=== PATIENT | female | born 1985 | race Caucasian/White ===

== ENCOUNTER → 2017-11-20 15:34 | Outpatient (REF) | payer BC, SELFPAY ==
[2017-11-20 18:45] LABS: Basophils % 0.5 % (0.1-2.0); Eosinophils # 0.2 K/mm3 (0.0-0.4); Eosinophils % 2.3 % (0.1-12.0); Hematocrit 42.5 % (37.0-47.0); Hemoglobin 14.4 g/dL (12.2-16.2); Lymphocytes # 1.7 K/mm3 (0.7-4.5); Lymphocytes % 25.9 K/mm3 (10-50); Mean Corpuscular HGB Conc 33.9 g/dL (31.8-35.4); Mean Corpuscular Hemoglobin 29.9 pg (27.0-31.2); Mean Corpuscular Volume 88.2 fl (81-99); Mean Platelet Volume 7.3 fl (7.4-10.4); Monocytes # 0.5 K/mm3 (0.1-1.0); Monocytes % 7.8 % (1.7-9.3); Neutrophils # 4.1 K/mm3 (1.8-7.8); Neutrophils % 63.6 % (37.0-80.0); Platelet Count 267 K/mm3 (142-424); Red Blood Count 4.82 M/mm3 (4.20-5.40); White Blood Count 6.4 K/mm3 (4.8-10.8)
[2017-11-20 19:19] LABS: Alanine Aminotransferase 25 U/L (12-78); Albumin Level 3.9 gm/dL (3.4-5.0); Albumin/Globulin Ratio 1.1 (1.1-1.8); Alkaline Phosphatase 81 U/L (46-116); Aspartate Amino Transferase 17 U/L (15-37); Bilirubin,Total 0.5 mg/dL (0.2-1.0); Blood Urea Nitrogen 15 mg/dL (7-18); Calcium 9.2 mg/dL (8.5-10.1); Carbon Dioxide 30 mmol/L (21.0-32.0); Chloride 106 mmol/L (98-107); Chol/HDL Ratio 5.8 (1-3.5); Cholesterol 210 mg/dL (140-200); Creatinine,Serum 0.94 mg/dL (0.55-1.02); Estimated Glomerular Filt Rate 69 ml/min (>60); GFR (African American) 83 ML/MIN (>60); Globulin 3.5 gm/dl (1.3-3.2); Glucose 95 mg/dL (74-106); HDL Cholesterol 36 mg/dL (29-89); LDL Cholesterol 140 mg/dL (0-130); Sodium 143 mmol/L (136-145); Thyroid Stimulating Hormone 2.06 uIU/ml (0.358-3.740); Total Protein,Serum 7.4 gm/dL (6.4-8.2); Triglycerides 168 mg/dL (30-200); VLDL Cholesterol 34 mg/dL (0-40)
[2017-11-22 07:16] LABS: Thyroid Peroxidase Antibodies 20 IU/mL (0-34)
[2017-11-22 07:43] LABS: Vitamin D 25 Hydroxy 21.3 ng/mL (30.0-100.0)
== END ==
LOC: LAB 15:34
PROVIDERS: Visit Provider Physician Assistant
DX: J01.00 Acute maxillary sinusitis, unspecified (principal); E66.9 Obesity, unspecified; Z68.35 Body mass index [BMI] 35.0-35.9, adult; Z79.899 Other long term (current) drug therapy
CPT/HCPCS: 80053; 80061; 82652; 84436; 84443; 84481; 85025; 86376

== ENCOUNTER 2018-04-04 19:20 | Observation (INO) ==
[2018-04-04 20:05] LABS: Microscopic, Urine URINE MICROSCOPIC (MICROSCOPIC)
[2018-04-04 20:08] LABS: Appearance,Urine CLEAR (Clear); Bilirubin,Urine Negative (Negative); Blood, Urine TRACE-L (Negative); Color,Urine YELLOW (Yellow); Glucose,Urine (UA) Negative (Negative); Ketones,Urine Negative (Negative); Leukocyte Esterase,Urine Negative (Negative); Protein,Urine Negative (Negative); Specific Gravity, Urine 1.015 (1.005-1.030); Urobilinogen,Urine 0.2 EU/dl (0.2)
[2018-04-04 20:12] LABS: Basophils % 0.4 % (0.1-2.0); Eosinophils # 0.2 K/mm3 (0.0-0.4); Eosinophils % 2.6 % (0.1-12.0); Hematocrit 43.6 % (37.0-47.0); Hemoglobin 14.5 g/dL (12.2-16.2); Lymphocytes # 1.8 K/mm3 (0.7-4.5); Lymphocytes % 25.3 K/mm3 (10-50); Mean Corpuscular HGB Conc 33.3 g/dL (31.8-35.4); Mean Corpuscular Hemoglobin 29.6 pg (27.0-31.2); Mean Platelet Volume 6.9 fl (7.4-10.4); Monocytes # 0.4 K/mm3 (0.1-1.0); Neutrophils # 4.7 K/mm3 (1.8-7.8); Neutrophils % 65.7 % (37.0-80.0); Platelet Count 275 K/mm3 (142-424); Red Cell Distribution Width 12.3 % (11.5-17.5); White Blood Count 7.2 K/mm3 (4.8-10.8)
--- NOTE | 2018-04-04 20:13 | Emergency Department Note ---
ED Disposition Clinical Impression: Headache Qualifiers: Headache type: unspecified Headache chronicity pattern: acute headache Intractability: intractable Qualified Code(s): R51 - Headache Disposition: Admitted as Observation Condition on Discharge: Good Referrals: Marilu García MD [Primary Care Provider] - - Critical Care Critical Care Time: No Attestation: On 04/04/18, the high probability of a clinically significant, sudden or life threatening deterioration of the following system(s) required my full and direct attention, intervention and personal management. The time I documented below is in addition to time spent performing reported procedures but includes the following listed in this critical care notation. Medical Decision Making - Medical Records Medical records reviewed: Yes: I reviewed the patient's medical records. - Ray Inquiry Pt receiving controlled substance: No Vital Signs: 04/04/18 19:30 04/04/18 19:33 Temperature 98.0 F 98.4 F Temperature Source Oral Oral Pulse Rate [Right Radial] 118 H 118 H Respiratory Rate 20 16 Blood Pressure [Right Arm] 148/96 H 148/96 H Blood Pressure Mean [Right Arm] 113 113 02 Sat by Pulse Oximetry 97 98 Oxygen Delivery Method Room Air - Lab Data Lab results reviewed: Yes: I reviewed the patient's lab results. Lab Results 04/04/18 20:00: Urine Color Yellow, Urine Appearance Clear, Urine pH 6.0, Ur Specific [place] 1.015, Urine Protein Negative, Urine Glucose (UA) Negative, Urine Ketones Negative, Urine Blood Trace-l, Urine Nitrate Negative, Urine Bilirubin Negative, Urine Urobilinogen 0.2, Ur Leukocyte Esterase Negative, Urine RBC None, Urine WBC 3-5, Ur Squamous Epith Cells Occasional, Urine Bact eria Trace 04/04/18 20:05: WBC 7.2, RBC 4.90, Hgb 14.5, Hct 43.6, MCV 89.0, MCH 29.6, MCHC 33.3, RDW 12.3, Plt Count 275, MPV 6.9 L, Neut % (Auto) 65.7, Lymph % (Auto) 25.3, [place] % (Auto) 6.0, Eos % (Auto) 2.6, Baso % (Auto) 0.4, Neut # (Auto) 4.7, Lymph # (Auto) 1.8, [place] # (Auto) 0.4, Eos # (Auto) 0.2, Baso # (Auto) 0.0 04/04/18 20:05: Sodium 142, Potassium 3.6, Chloride 106, Carbon Dioxide 27, Anion Gap 12.6, BUN 10, Creatinine 0.83, Estimated Creat Clear 131, Estimated GFR 79, Est GFR ( Amer) 96, Glucose 98, Calcium 9.1 04/04/18 20:05: ESR 13 Result diagrams: 04/04/18 20:05 04/04/18 20:05 Orders (Tests/Meds): ED MEDICATIONS Discontinued Medications Generic Name Dose Route Start Last Admin Trade Name Freq PRN Reason Stop Dose Admin Diphenhydramine HCl 25 mg 04/04/18 19:36 04/04/18 20:03 Benadryl 50mg/1ml Vial IV 04/04/18 19:37 25 mg ONCE ONE Administration Sodium Chloride 1,000 mls @ 999 mls/hr 04/04/18 19:45 04/04/18 20:03 Sod Chlor 0.9% 1000ml Bag IV 04/04/18 20:45 999 mls/hr .Q1H1M KADEN Administration Ketorolac Tromethamine 30 mg 04/04/18 19:36 04/04/18 20:03 Toradol 30mg/Ml Vial IV 04/04/18 19:37 30 mg ONCE ONE Administration Promethazine HCl 12.5 mg 04/04/18 19:36 04/04/18 20:03 Phenergan 25mg/Ml 1ml Vial IV 04/04/18 19:37 12.5 mg ONCE ONE Administration Sodium Chloride 25 ml 04/04/18 19:36 04/04/18 20:03 Sod Chlor 0.9% 25ml Bag IV 04/04/18 19:37 25 ml ONCE ONE Administration ORDERS Category Date Time Status UA [Urinalysis and Microscopic] Stat Lab 04/04/18 20:00 Ordered - Physician Consults Physician Consulted: chester Reason -: Admission Headache HPI - General Chief Complaint: Headache Stated Complaint: GRIMM, vomiting Time Seen by Provider: 04/04/18 20:00 Mode of Arrival: Family Vehicle Source of Information: Patient Limitations: No Limitations Description of Symptoms (Recalled from ER Triage Doc. by RN): headache that began on monday. pt states she was seen at [facility] where she received ct scan, mri, ,and full work up. pt states she is still having headache and nausea. - History of Present Illness HPI Narrative: pt has hx of occ grimm over the yrs and no specific but felt flush and brief diz zyness - pt with onset of occipital grimm on monday with no relief with otc meds and fiorcet - she then had frontal grimm with occ blurred vision and felt weak and no focal changes but different than prev grimm - pt without fever or rash and no trauma - pt was seen on monday as grimm had been steady since monday by pcp and given meds with no relief as she started them on monday - she had ct today which was abn with possible intracerebral edema -- pt with mri later today but no results and reports inc grimm since that time and presented to ed as no relief with op meds - MD Complaint: headache Onset (ago): day(s) Onset description: gradual Location: frontal, occipital, neck Severity: moderate Quality: constant, different than previous headaches Relieving factors: nothing Exacerbating factors: movement of head/neck Treatments prior to arrival: acetaminophen, ibuprofen, prescription analgesic, antiemetic, migraine medication - Related Data Home Medications Medication Instructions Recorded Confirmed Cyclobenzaprine HCl [Flexeril 10mg 10 mg PO Q8HP PRN 04/04/18 04/04/18 tablet] Ondansetron [Zofran 4mg ODT] 4 mg PO Q4HP PRN 04/04/18 04/04/18 Rizatriptan Benzoate [Maxalt] 5 mg PO Q4HP PRN 04/04/18 04/04/18 methylPREDNISolone [Medrol] 4 mg PO DAILY 04/04/18 04/04/18 Allergies Allergy/AdvReac Type Severity Reaction Status Date / Time cefaclor [From CECLOR] Allergy Unknown Verified 04/04/18 19:36 metoclopramide [From REGLAN] Allergy Unknown Verified 04/04/18 19:36 sulfamethoxazole Allergy Unknown Verified 04/04/18 19:36 [From BACTRIM] trimethoprim [From BACTRIM] Allergy Unknown Verified 04/04/18 19:36 [facility] History I have reviewed the patient's past medical history: Yes Medical History: Denies:: Cancer, Diabetes Mellitus Type 1, Diabetes Mellitus Type 2, MRSA Other Surgeries: Yes: Dilation and Curettage, Other Amputation: No Fractures: No - 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 Smoking Status: Current every day smoker Tobacco Type: cigarettes # Packs/Day (cigarettes): 1 Alcohol Intake: never Substance Use Type: denies use - Psychiatric History Expresses thoughts of harming self/others: None Suicide Plan Description: No Plan Family Hx:: No significant family history ROS Obtained: Yes All systems reviewed & no additional complaints - Constitutional Constitutional: Denies fever(s) - Eyes Eyes: Denies change in vision - ENT Ears, Nose, Mouth, and Throat: Denies sore throat - Cardiovascular Cardiovascular: Denies chest pain - Respiratory Respiratory: No cough - Gastrointestinal Gastrointestingal: Denies: abdominal pain - Genitourinary Female Genitourinary: Denies hematuria - Musculoskeletal Musculoskeletal: Denies joint pain - Integumentary/Breasts Skin/Breast: Denies rash - Neurologic Neurologic: Reports as per HPI, Denies abnormal speech, Denies focal weakness, Reports headache(s), Denies seizure-like activity Physical Exam - General General appearance: alert, in no apparent distress - Head Head exam: normocephalic - Eye Eye exam: Present: PERRL, EOMI, other (fundi - ok as seen ) - ENT ENT exam: Present: mucous membranes dry - Neck Neck exam: Present: trachea midline - Respiratory Respiratory exam: Present: normal lung sounds bilaterally - Cardiovascular Cardiovascular exam: Present: regular rate - Abdominal Exam Abdominal exam: Present: soft - Extremities Exam Extremities exam: Present: full ROM - Neurological Exam Neurological exam: Present: alert, oriented X3, CN II-XII intact - Psychiatric Psychiatric exam: Present: normal affect - Skin Skin exam: Absent: rash
[2018-04-04 20:20] LABS: Anion Gap 12.6 mEq/L (5-15); Calcium 9.1 mg/dL (8.5-10.1); Potassium 3.6 mmoL/L (3.5-5.1)
[2018-04-04 20:31] LABS: Bacteria,Urine Trace /lpf; Squamous Epithelial Cell,Urine Occasional #/hpf (0-5)
[2018-04-05 06:39] LABS: Basophils % 0.4 % (0.1-2.0); Eosinophils # 0.2 K/mm3 (0.0-0.4); Eosinophils % 3.2 % (0.1-12.0); Hematocrit 37.7 % (37.0-47.0); Lymphocytes # 1.7 K/mm3 (0.7-4.5); Lymphocytes % 28.7 K/mm3 (10-50); Mean Corpuscular HGB Conc 32.3 g/dL (31.8-35.4); Mean Corpuscular Hemoglobin 29.2 pg (27.0-31.2); Mean Corpuscular Volume 90.3 fl (81-99); Mean Platelet Volume 6.9 fl (7.4-10.4); Monocytes # 0.4 K/mm3 (0.1-1.0); Monocytes % 6.2 % (1.7-9.3); Neutrophils # 3.6 K/mm3 (1.8-7.8); Neutrophils % 61.6 % (37.0-80.0); Platelet Count 233 K/mm3 (142-424); Red Blood Count 4.18 M/mm3 (4.20-5.40); Red Cell Distribution Width 12.4 % (11.5-17.5); White Blood Count 5.8 K/mm3 (4.8-10.8)
[2018-04-05 06:51] LABS: Hemoglobin 12.3 g/dL (12.2-16.2)
[2018-04-05 07:01] LABS: Anion Gap 12.7 mEq/L (5-15); Calcium 8.2 mg/dL (8.5-10.1); Potassium 3.7 mmoL/L (3.5-5.1)
--- NOTE | 2018-04-05 07:46 | Pharmacy Consult Notes ---
[facility] Pharmacy VTE Monitoring - Patient Demographics Admission date: 04/04/18 Report Date: 04/05/18 Time: 07:45 Allergies/Adverse Reactions: Patient Allergies cefaclor [From CECLOR] Allergy (Unknown, Verified 04/04/18 19:36) metoclopramide [From REGLAN] Allergy (Unknown, Verified 04/04/18 19:36) sulfamethoxazole [From BACTRIM] Allergy (Unknown, Verified 04/04/18 19:36) trimethoprim [From BACTRIM] Allergy (Unknown, Verified 04/04/18 19:36) Height: 1.68 m Weight: 97.551 kg Patient Problems: Current Active Problems (Last Updated 11/22/17 @ 09:03 by MATT Zuniga) Headache (Acute) - VTE Risk Labs: VTE Related Lab Results Hgb 12.3 g/dL (12.2-16.2) D 04/05/18 06:10 Hct 37.7 % (37.0-47.0) 04/05/18 06:10 Plt Count 233 K/mm3 (142-424) 04/05/18 06:10 BUN 12 mg/dL (7-18) 04/05/18 06:10 Creatinine 0.71 mg/dL (0.55-1.02) 04/05/18 06:10 Estimated Creat Clear 174 mL/min (0-300) 04/05/18 06:10 Was VTE Risk Assessment Performed: Yes VTE Score: 1 - Prophylaxis VTE Prophylaxis Ordered?: Yes Types of VTE Prophylaxis: TEDS Knee High Location of Applied Device: Bilateral Lower Extremeties - VTE Diagnosis Confirmed Treatment or plan recommended: Continue Current Treatment
--- NOTE | 2018-04-05 08:24 | History & Physical Report ---
*Admission Date: 04/04/18 <Sally Cordova 04/05/18 08:34> *Chief complaint: headache <Sally Cordova 04/05/18 08:34> *History of present illness: is a 32-year-old female who has had headaches off and on over the years but was always able to make them go away with Fioricet or ibuprofen. On Monday, she developed an occipital headache that radiated around to the front of her head. She describes it as a pain and pressure. She tried [id number] medications with no relief. She began getting blurry vision, felt weak, felt dizzy like she was spinning, and felt like she was floating. She was seen in the office of [facility] on 04/02/[address] of the head was ordered. She was also given Maxalt, a steroid Dosepak, Flexeril, and Zofran. She states she took all of this with no relief. Her CT scan showed possible intracerebral edema, therefore an MRI was ordered. She had the MRI yesterday afternoon at [facility]. Her GRIMM continued to worsen and she began having pain all the way down her neck and spine as well as her paraspinal muscles. She presented to the emergency room. She was given Benadryl, Toradol, and Phenergan. She states this did not help. She was then given morphine and she states the morphine eases her headache but does not make it go away. <Sally Cordova 04/05/18 08:34> [facility] History Medical History: Reports:: Anxiety, Depression, Hyperlipidemia, Hypertension Denies:: Cancer, Diabetes Mellitus Type 1, Diabetes Mellitus Type 2, MRSA <Sally Cordova 04/05/18 08:34> Comment: Endometriosis <Sally Cordova 04/05/18 08:34> Other Surgeries: Yes: Cholecystectomy, Dilation and Curettage, Hysterectomy- Partial, Tubal Ligation, Other (Endometrial ablation, Partial hysterectomy) <Sally Cordova 04/05/18 08:34> Amputation: No <Sally Cordova 04/05/18 08:34> Fractures: No <Sally Cordova 04/05/18 08:34> - *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 Educational Level: Completed [employer] School <Sally Cordova 04/05/18 08:34> Smoking Status: Current every day smoker <Sally Cordova 04/05/18 08:34> Tobacco Type: cigarettes <Sally Cordova 04/05/18 08:34> # Packs/Day (cigarettes): 1 <Sally Cordova 04/05/18 08:34> Alcohol Intake: never <Sally Cordova 04/05/18 08:34> Substance Use Type: denies use <Sally Cordova 04/05/18 08:34> Occupational Status: employed <Sally Cordova 04/05/18 08:34> Housing: house <Sally Cordova 04/05/18 08:34> Household Members: spouse, children <Sally Cordova 04/05/18 08:34> - Psychiatric History Expresses thoughts of harming self/others: None <Sally Cordova 04/05/18 08:34> Suicide Plan Description: No Plan <Sally Cordova 04/05/18 08:34> *Family Hx:: Cancer, Heart Attack, Hypertension, Stroke, Thyroid Disorder <Sally Henley 04/05/18 08:34> Comment: MS, Chiari Malformation <Shmuel Cordovaa 04/05/18 08:34> Review of Systems - Constitutional Reports fatigue, Reports headache(s), Reports weakness <Sally Cordova 04/05/18 08:34> - Eyes Reports blurry vision, Reports sensitivity to light, Denies double vision <Sally Cordova 04/05/18 08:34> - ENT Denies nasal congestion, Denies sore throat <Shmuel Cordovaa 04/05/18 08:34> - *Cardiovascular Denies chest pain, Denies irregular heart rhythm <Sally Cordova 04/05/18 08:34> - *Respiratory Denies cough, Denies shortness of breath <Sally Cordova 04/05/18 08:34> - *Gastrointestinal Reports nausea, Reports vomiting, Denies abdominal pain <Sally Cordova 04/05/18 08:34> - *Genitourinary Denies difficulty urinating, Denies painful urination <Sally Cordova 04/05/18 08:34> - *Musculoskeletal Reports back pain, Reports neck pain <MalcolmjazymnSally - 04/05/18 08:34> - *Neurologic Reports dizziness, Reports headache(s), Reports radiating pain, Reports weakness, Denies abnormal speech, Denies localized weakness, Denies seizure-like activity <Shmuel Cordovaa - 04/05/18 08:34> Meds Home Medications Medication Instructions Recorded Confirmed Type Cyclobenzaprine HCl [Flexeril 10mg 10 mg PO Q8HP PRN 04/04/18 04/04/18 History tablet] Ondansetron [Zofran 4mg ODT] 4 mg PO Q4HP PRN 04/04/18 04/04/18 History Rizatriptan Benzoate [Maxalt] 5 mg PO Q4HP PRN 04/04/18 04/04/18 History hydrOXYzine HCl [Hydroxyzine HCl] 12.5 mg PO NEEDED PRN 04/04/18 04/04/18 History methylPREDNISolone [Medrol] 4 mg PO DAILY 04/04/18 04/04/18 History <Narinder Dior - 04/05/18 09:10> Allergies Allergy/AdvReac Type Severity Reaction Status Date / Time cefaclor [From CECLOR] Allergy Unknown Verified 04/04/18 19:36 metoclopramide [From REGLAN] Allergy Unknown Verified 04/04/18 19:36 sulfamethoxazole Allergy Unknown Verified 04/04/18 19:36 [From BACTRIM] trimethoprim [From BACTRIM] Allergy Unknown Verified 04/04/18 19:36 <Narinder Dior - 04/05/18 09:10> Exam Vital signs and Labs for Last 24 Hours: Temp Pulse Resp BP Pulse Ox 97.8 F 87 16 137/85 98 04/05/18 07:29 04/05/18 07:29 04/05/18 07:29 04/05/18 07:29 04/05/18 07:29 Laboratory Results - last 24 hr 04/04/18 20:00: Urine Color Yellow, Urine Appearance Clear, Urine pH 6.0, Ur Specific [place] 1.015, Urine Protein Negative, Urine Glucose (UA) Negative, Urine Ketones Negative, Urine Blood Trace-l, Urine Nitrate Negative, Urine Bilirubin Negative, Urine Urobilinogen 0.2, Ur Leukocyte Esterase Negative, Urine RBC None, Urine WBC 3-5, Ur Squamous Epith Cells Occasional, Urine Bacteria Trace 04/04/18 20:05: WBC 7.2, RBC 4.90, Hgb 14.5, Hct 43.6, MCV 89.0, MCH 29.6, MCHC 33.3, RDW 12.3, Plt Count 275, MPV 6.9 L, Neut % (Auto) 65.7, Lymph % (Auto) 25.3, [place] % (Auto) 6.0, Eos % (Auto) 2.6, Baso % (Auto) 0.4, Neut # (Auto) 4.7, Lymph # (Auto) 1.8, [place] # (Auto) 0.4, Eos # (Auto) 0.2, Baso # (Auto) 0.0 04/04/18 20:05: Sodium 142, Potassium 3.6, Chloride 106, Carbon Dioxide 27, Anion Gap 12.6, BUN 10, Creatinine 0.83, Estimated Creat Clear 131, Estimated GFR 79, Est GFR ( Amer) 96, Glucose 98, Calcium 9.1 04/04/18 20:05: ESR 13 04/05/18 06:10: WBC 5.8, RBC 4.18 L, Hgb 12.3 D, Hct 37.7, MCV 90.3, MCH 29.2, MCHC 32.3, RDW 12.4, Plt Count 233, MPV 6.9 L, Neut % (Auto) 61.6, Lymph % (Auto) 28.7, [place] % (Auto) 6.2, Eos % (Auto) 3.2, Baso % (Auto) 0.4, Neut # (Auto) 3.6, Lymph # (Auto) 1.7, [place] # (Auto) 0.4, Eos # (Auto) 0.2, Baso # (Auto) 0.0 04/05/18 06:10: Sodium 143, Potassium 3.7, Chloride 108 H, Carbon Dioxide 26, Anion Gap 12.7, BUN 12, Creatinine 0.71, Estimated Creat Clear 174, Estimated GFR 95, Est GFR ( Amer) 115, Glucose 88, Calcium 8.2 L <Narinder Dior - 04/05/18 09:10> Temp Pulse Resp BP Pulse Ox 97.8 F 87 16 137/85 98 04/05/18 07:29 04/05/18 07:29 04/05/18 07:29 04/05/18 07:29 04/05/18 07:29 Laboratory Results - last 24 hr 04/04/18 20:00: Urine Color Yellow, Urine Appearance Clear, Urine pH 6.0, Ur Specific [place] 1.015, Urine Protein Negative, Urine Glucose (UA) Negative, Urine Ketones Negative, Urine Blood Trace-l, Urine Nitrate Negative, Urine Bilirubin Negative, Urine Urobilinogen 0.2, Ur Leukocyte Esterase Negative, Urine RBC None, Urine WBC 3-5, Ur Squamous Epith Cells Occasional, Urine Bacteria Trace 04/04/18 20:05: WBC 7.2, RBC 4.90, Hgb 14.5, Hct 43.6, MCV 89.0, MCH 29.6, MCHC 33.3, RDW 12.3, Plt Count 275, MPV 6.9 L, Neut % (Auto) 65.7, Lymph % (Auto) 25.3, [place] % (Auto) 6.0, Eos % (Auto) 2.6, Baso % (Auto) 0.4, Neut # (Auto) 4.7, Lymph # (Auto) 1.8, [place] # (Auto) 0.4, Eos # (Auto) 0.2, Baso # (Auto) 0.0 04/04/18 20:05: Sodium 142, Potassium 3.6, Chloride 106, Carbon Dioxide 27, Anion Gap 12.6, BUN 10, Creatinine 0.83, Estimated Creat Clear 131, Estimated GFR 79, Est GFR ( Amer) 96, Glucose 98, Calcium 9.1 04/04/18 20:05: ESR 13 04/05/18 06:10: WBC 5.8, RBC 4.18 L, Hgb 12.3 D, Hct 37.7, MCV 90.3, MCH 29.2, MCHC 32.3, RDW 12.4, Plt Count 233, MPV 6.9 L, Neut % (Auto) 61.6, Lymph % (Auto) 28.7, [place] % (Auto) 6.2, Eos % (Auto) 3.2, Baso % (Auto) 0.4, Neut # (Auto) 3.6, Lymph # (Auto) 1.7, [place] # (Auto) 0.4, Eos # (Auto) 0.2, Baso # (Auto) 0.0 04/05/18 06:10: Sodium 143, Potassium 3.7, Chloride 108 H, Carbon Dioxide 26, Anion Gap 12.7, BUN 12, Creatinine 0.71, Estimated Creat Clear 174, Estimated GFR 95, Est GFR ( Amer) 115, Glucose 88, Calcium 8.2 L <Sally Cordova - 04/05/18 08:34> I & O for Last 24 hours: Intake & Output 04/02/18 04/03/18 04/04/18 04/05/18 11:59 11:59 11:59 11:59 Intake Total 1244 / 1244 Balance 1244 / 1244 Weight 215 lb 1 oz <Narinder Dior - 04/05/18 09:10> Intake & Output 04/02/18 04/03/18 04/04/18 04/05/18 11:59 11:59 11:59 11:59 Intake Total 1244 / 1244 Balance 1244 / 1244 Weight 215 lb 1 oz <Sally Cordova - 04/05/18 08:34> - Constitutional no acute distress <Sally Cordova 04/05/18 08:34> - *Routine HEENT Exam Head: Present: normocephalic <Sally Cordova 04/05/18 08:34> Eye: Present: EOMI, PERRL <Sally Cordova 04/05/18 08:34> ENT: Present: mucous membranes moist <Sally Cordova 04/05/18 08:34> - *Routine Neck Exam Present: supple. Absent: lymphadenopathy <Sally Cordova - 04/05/18 08:34> Comments: ttp along the entire c-spine and paraspinal muscles, pain throughout ROM <Sally Cordova 04/05/18 08:34> - *Routine Respiratory Exam Present: CTA bilaterally <Sally Cordova 04/05/18 08:34> - *Routine Cardiovascular Exam Present: RRR <Sally Cordova 04/05/18 08:34> - *Routine Abdominal Exam Present: soft, normoactive bowel sounds. Absent: tenderness <Sally Cordova - 04/05/18 08:34> - *Routine Extremities Exam Absent: cyanosis, clubbing, edema <Sally Cordova 04/05/18 08:34> - Routine Back/Spine/Pelvis Exam Back/Spine: Present: paraspinal tenderness, vertebral tenderness (C-spine to L- spine along with paraspinal muscle tenderness) <Sally Cordova 04/05/18 08:34> - *Routine Skin Exam Present: warm. Absent: rash <Sally Cordova 04/05/18 08:34> - *Routine Neurological Exam Present: alert, oriented X3, CN II-XII intact, moving all extremities. Absent: altered mental status <Sally Cordova 04/05/18 08:34> H&P: Result - Impressions CT head - Possible intracerebral edema MRI without contrast - normal <Sally Cordova 04/05/18 08:34> Assessment and Plan (1) Headache Current visit: Yes Status: Acute Qualifiers: Headache type: unspecified Headache chronicity pattern: acute headache Intractability: intractable Qualified Code(s): R51 - Headache Category: Medical Code(s): R51 - Headache (2) Neck pain Current visit: Yes Status: Acute Category: Medical Code(s): M54.2 - Cervicalgia (3) Back pain Current visit: Yes Status: Acute Category: Medical Code(s): M54.9 - Dorsalgia, unspecified <Narinder Dior - 04/05/18 09:10> (1) Headache Current visit: Yes Status: Acute Qualifiers: Headache type: unspecified Headache chronicity pattern: acute headache Intractability: intractable Qualified Code(s): R51 - Headache Category: Medical Code(s): R51 - Headache (2) Neck pain Current visit: Yes Status: Acute Category: Medical Code(s): M54.2 - Cervicalgia (3) Back pain Current visit: Yes Status: Acute Category: Medical Code(s): M54.9 - Dorsalgia, unspecified <Sally Cordova - 04/05/18 08:19> - Assessment and plan all Dx Assessment and Plan for all problems:: Saw patient agree with above note, plan to discuss LP with measurement of opening pressure with radiology as patient could have pseudotumor cerebri. <Narinder Dior - 04/05/18 09:10> Will discuss further care with Dr. Dior. May need to add steroids and muscle relaxants. <Sally Cordova - 04/05/18 08:34>
[2018-04-05 12:47] LABS: Total Protein,CSF 44.2 mg/dL (15-45)
[2018-04-05 14:38] LABS: Appearance,CSF Clear (Clear); Red Blood Cell,CSF 1 cells/uL (0); White Blood Cell,CSF 2 cells/uL (0-5)
[2018-04-05 15:09] LABS: Mononuclear WBCs,CSF 100 %; Polynuclear WBCs,CSF 0 %
--- NOTE | 2018-04-06 08:09 | Progress Note ---
<Sally Cordova - Last Filed: 04/06/18 08:05> Internal Medicine - PN: Subj *Date: 04/06/18 *Time: 08:06 Interval history: Patient states her headache has improved. She just has a dull headache at this point. She states her back pain is still present from her neck all the way down to her tailbone. She is having some pain where the lumbar puncture was performed that radiates down the left side. She states she feels stiff all over in her back. She was able to rest some last night. She ate a small amount of breakfast this morning. Exam Vital signs and Labs for Last 24 Hours: Temp Pulse Resp BP Pulse Ox 98.3 F 82 14 138/74 97 04/06/18 04:03 04/06/18 04:03 04/06/18 04:03 04/06/18 04:03 04/06/18 04:03 Laboratory Results - last 24 hr 04/05/18 12:32: CSF Glucose 51, CSF Total Protein 44.2 04/05/18 : CSF Volume 12, CSF Appearance Clear, CSF WBC 2, CSF RBC 1, CSF Mononuclear WBCs % 100, CSF Polynuclear WBCs % 0 I & O for Last 24 hours: Intake & Output 04/03/18 04/04/18 04/05/18 04/06/18 11:59 11:59 11:59 11:59 Intake Total 1244 / 1244 2435 / 2435 Balance 1244 / 1244 2435 / 2435 Weight 215 lb 1 oz Microbiology Reports for the Last 24 Hours: Microbiology 04/05/18 Unknown Cerebral Spinal Fluid Gram Stain - Final Radiology Reports for the Last 24 Hours: LP - Successful fluoroscopy guided lumbar puncture without complications. Normal opening pressure - Constitutional no acute distress - *Routine Neck Exam Present: supple Comments: Tenderness to palpation along the entire C-spine and paraspinal muscles. Patient does have better range of motion but still has pain throughout range of motion. - *Routine Respiratory Exam Present: CTA bilaterally - *Routine Cardiovascular Exam Present: RRR - *Routine Abdominal Exam Present: soft, normoactive bowel sounds. Absent: tenderness - *Routine Extremities Exam Absent: cyanosis, clubbing, edema - Routine Back/Spine/Pelvis Exam Back/Spine: Present: paraspinal tenderness (bilaterally from the C-spine to the L-spine), vertebral tenderness (From the c-spine to the lower L-spine), muscle spasm, pain with rotation Assessment and Plan (1) Headache Current visit: Yes Status: Acute Qualifiers: Headache type: unspecified Headache chronicity pattern: acute headache Intractability: intractable Qualified Code(s): R51 - Headache Category: Medical Code(s): R51 - Headache (2) Neck pain Current visit: Yes Status: Acute Category: Medical Code(s): M54.2 - Cervicalgia (3) Back pain Current visit: Yes Status: Acute Category: Medical Code(s): M54.9 - Dorsalgia, unspecified - Assessment and plan all Dx Assessment and Plan for all problems:: Continue steroids as they seem to be helping her headache. Will discuss adding some muscle relaxants with Dr. Dior today for the muscle spasm and stiffness in her back. <Narinder Dior - Last Filed: 04/06/18 08:52> Exam Vital signs and Labs for Last 24 Hours: Temp Pulse Resp BP Pulse Ox 97.2 F L 100 H 18 127/77 97 04/06/18 08:00 04/06/18 08:00 04/06/18 08:00 04/06/18 08:00 04/06/18 08:00 Laboratory Results - last 24 hr 04/05/18 12:32: CSF Glucose 51, CSF Total Protein 44.2 04/05/18 : CSF Volume 12, CSF Appearance Clear, CSF WBC 2, CSF RBC 1, CSF Mononuclear WBCs % 100, CSF Polynuclear WBCs % 0 I & O for Last 24 hours: Intake & Output 04/03/18 04/04/18 04/05/18 04/06/18 11:59 11:59 11:59 11:59 Intake Total 1244 / 1244 2555 / 2555 Balance 1244 / 1244 2555 / 2555 Weight 215 lb 1 oz Microbiology Reports for the Last 24 Hours: Microbiology 04/05/18 Unknown Cerebral Spinal Fluid Gram Stain - Final Assessment and Plan (1) Headache Current visit: Yes Status: Acute Qualifiers: Headache type: unspecified Headache chronicity pattern: acute headache Intractability: intractable Qualified Code(s): R51 - Headache Category: Medical Code(s): R51 - Headache (2) Neck pain Current visit: Yes Status: Acute Category: Medical Code(s): M54.2 - Cervicalgia (3) Back pain Current visit: Yes Status: Acute Category: Medical Code(s): M54.9 - Dorsalgia, unspecified - Assessment and plan all Dx Assessment and Plan for all problems:: Saw patient, she is much better this morning, will give one dose of valium now and stop Morphine, plan discharge later today.
--- NOTE | 2018-04-06 15:29 | Discharge Summary ---
General - General Admission date:: 04/04/18 Discharge date: 04/06/18 HPI HPI: Ms. Muro is a 32-year-old female who has had headaches off and on over the years but was always able to make them go away with Fioricet or ibuprofen. On Monday, she developed an occipital headache that radiated around to the front of her head. She describes it as a pain and pressure. She tried [id number] medications with no relief. She began getting blurry vision, felt weak, felt dizzy like she was spinning, and felt like she was floating. She was seen in the office of [facility] on 04/02/[address] of the head was ordered. She was also given Maxalt, a steroid Dosepak, Flexeril, and Zofran. She states she took all of this with no relief. Her CT scan showed possible intracerebral edema, therefore an MRI was ordered. She had the MRI yesterday afternoon at [facility]. Her GRIMM continued to worsen and she began having pain all the way down her neck and spine as well as her paraspinal muscles. She presented to the emergency room. She was given Benadryl, Toradol, and Phenergan. She states this did not help. She was then given morphine and she states the morphine eases her headache but does not make it go away. Hospital Course Hospital Course: The patient's MRI without contrast from [facility] showed nothing acute. A lumbar puncture under fluoroscopy was then ordered and showed a normal opening pressure. The patient was given a large dose of 10mg of dexamethasone and then 4mg every 6 hours thereafter. She was also given flexeril and a dose of valium. Her GRIMM and back pain improved. She was stable to be discharged home and will f/u with neurology on 04/09/18. Objective Vital signs: Temp Pulse Resp BP Pulse Ox 97.2 F L 100 H 16 127/77 99 04/06/18 08:00 04/06/18 08:00 04/06/18 08:00 04/06/18 08:00 04/06/18 08:00 Narrative: - Constitutional no acute distress - *Routine HEENT Exam Head: Present: normocephalic Eye: Present: EOMI, PERRL ENT: Present: mucous membranes moist - *Routine Neck Exam Present: supple. Absent: lymphadenopathy Comments: ttp along the entire c-spine and paraspinal muscles, pain throughout ROM - *Routine Respiratory Exam Present: CTA bilaterally - *Routine Cardiovascular Exam Present: RRR - *Routine Abdominal Exam Present: soft, normoactive bowel sounds. Absent: tenderness - *Routine Extremities Exam Absent: cyanosis, clubbing, edema - Routine Back/Spine/Pelvis Exam Back/Spine: Present: paraspinal tenderness, vertebral tenderness (C-spine to L- spine along with paraspinal muscle tenderness) - *Routine Skin Exam Present: warm. Absent: rash - *Routine Neurological Exam Present: alert, oriented X3, CN II-XII intact, moving all extremities. Absent: altered mental status Results Labs on day of discharge: Preliminary micro results at discharge 04/05/18 Unknown CSF Culture - Preliminary Cerebral Spinal Fluid NO GROWTH AFTER 24 HOURS DS: Diagnosis - Discharge Diagnosis (1) Headache Status: Acute (2) Neck pain Status: Acute (3) Back pain Status: Acute Discharge Plan - Patient Discharge Instructions ACTIVITY: Continue current activity DIET: continue same diet Patient Instructions: DI for Low Back Pain, DI for Headache, DI for Neck Pain - Follow up Plan Follow up with: Kae Dior MD [Staff Physician] - 04/09/18 10:00 am Disposition: Home, Self-Senior Living Medications: Home Medications Medication Instructions Recorded Confirmed Type Cyclobenzaprine HCl [Flexeril 10mg 10 mg PO Q8HP PRN 04/04/18 04/04/18 History tablet] Ondansetron [Zofran 4mg ODT] 4 mg PO Q4HP PRN 04/04/18 04/04/18 History Rizatriptan Benzoate [Maxalt] 5 mg PO Q4HP PRN 04/04/18 04/04/18 History hydrOXYzine HCl [Hydroxyzine HCl] 12.5 mg PO NEEDED PRN 04/04/18 04/04/18 History Prescriptions/Medication Reconciliation: New Dexamethasone [Decadron 4mg tablet] 4 mg PO BID #10 tablet Continue Ondansetron [Zofran 4mg ODT] 4 mg PO Q4HP PRN PRN Reason: Nausea Cyclobenzaprine HCl [Flexeril 10mg tablet] 10 mg PO Q8HP PRN PRN Reason: Muscle Spasm Rizatriptan Benzoate [Maxalt] 5 mg PO Q4HP PRN PRN Reason: Migraine Headache hydrOXYzine HCl [Hydroxyzine HCl] 12.5 mg PO NEEDED PRN PRN Reason: Anxiety Discontinued methylPREDNISolone [Medrol] 4 mg PO DAILY
== END 2018-04-06 12:53 | disposition home or self-care (01) ==
LOC: 2ND 19:20 → ER 19:20 → 2ND 22:00
PROVIDERS: ADMIT Family Medicine; ATTEND Family Medicine

== ENCOUNTER → 2019-10-05 09:06 | Outpatient (CLI) | payer OTHER, SELFPAY ==
--- NOTE | 2019-10-05 09:20 | XR_ITS ---
PROCEDURE: XR CHEST 2V CLINICAL HISTORY: PNEUMONIA OF RIGH TLOWER LOBE DUE TO INFECTIOUS ORGANISM Nonproductive cough for 2 weeks COMPARISON: CTAC CTA-CHEST from 05/27/2016 CXR CHEST(2 VIEWS-NOT PORTABLE) from 05/27/2016 XR CHEST PORTABLE from 09/26/2019 FINDINGS: The cardiomediastinal silhouette and pulmonary vascularity are within normal limits. The lungs are clear without infiltrates, suspicious nodules, or pleural effusions. No acute bony abnormalities. IMPRESSION: No acute findings. Dictated by: Marquis Petersen 10/05/2019 10:37 Electronically signed by Marquis Petersen in [place] 10/05/2019 10:37
== END ==
PROVIDERS: PCP Physician Assistant; Visit Provider Physician Assistant
DX: J18.9 Pneumonia, unspecified organism (principal)
CPT/HCPCS: 71046

== ENCOUNTER 2019-12-18 21:05 | Observation (INO) | payer OTHER, SELFPAY ==
[2019-12-18 21:06] VITALS: BP 127/86; PULSE 66; RESP 16; TEMP 36.9; O2SAT 97; BMI 29.8
--- NOTE | 2019-12-18 21:23 | CT_ITS ---
PROCEDURE: CT ABDOMEN PELVIS W CON CLINICAL INDICATION: RLQ pain Right lower quadrant pain COMPARISON: CTAC CTA-CHEST from 05/27/2016 ABDPELW/O CT ABD PELVIS W/O CONTRAST from 09/14/2016 TECHNIQUE: IV Contrast: 75ML OPTIRAY 350 Oral Contrast none. Axial images obtained with sagittal and coronal reformats. All CT scans at the facility use one or more dose reduction, viz: automated exposure control, ma/kV adjustment per patient size (including targeted exams where dose is matched to indication, i.e. head), or iterative reconstruction technique. FINDINGS: LOWER THORAX: Mild atelectatic change ABDOMEN & PELVIS: There is a stable indeterminate hypodensity in the right hepatic lobe posteriorly at 8 mm probably unchanged from 05/27/2016. Prior cholecystectomy. The spleen, adrenal glands, pancreas have an unremarkable appearance. A 2 mm nonobstructing stone is present in the lower pole of the left kidney. There may be a small cyst in the lower pole of the left kidney medially. No intestinal obstruction or free air. There has been a prior cholecystectomy and hysterectomy The appendix is slightly plump measuring up to 8 mm but is partially air filled only slightly more prominent compared to 09/14/2016 at that time measuring up to 7 mm. No stranding of the periappendiceal fat. No abscess or free air. No intestinal obstruction. There is a small amount of fluid in the pelvis. There is scattered small mesenteric and right lower quadrant lymph nodes.. No acute bony findings. IMPRESSION: 1. Mild prominence of the appendix. This is of questionable clinical significance. No significant stranding of the periappendiceal fat. Early or mild acute appendicitis would be included in the differential diagnosis. Please correlate with clinical parameters. Follow-up exam with IV and oral contrast may provide further evaluation and could check progress 2. Nonobstructing left nephrolithiasis. 3. Stable hypodense lesion of the liver Dictated by: Darrin Gonsales MD 12/19/2019 09:31 Electronically signed by Darrin Gonsales MD in [place] 12/19/2019 09:31
[2019-12-18 21:32] LABS: Microscopic, Urine URINE MICROSCOPIC (MICROSCOPIC)
[2019-12-18 21:34] LABS: Appearance,Urine CLEAR (Clear); Basophils % 0.3 % (0.1-2.0); Bilirubin,Urine Negative (Negative); Blood, Urine TRACE-I (Negative); Color,Urine YELLOW (Yellow); Eosinophils # 0.4 K/mm3 (0.0-0.4); Eosinophils % 3.6 % (0.1-12.0); Glucose,Urine (UA) Negative (Negative); Hematocrit 45.8 % (37.0-47.0); Hemoglobin 15.8 g/dL (12.2-16.2); Ketones,Urine Negative (Negative); Leukocyte Esterase,Urine Negative (Negative); Lymphocytes # 2.4 K/mm3 (0.7-4.5); Lymphocytes % 23.3 % (10-50); Mean Corpuscular HGB Conc 34.6 g/dL (31.8-35.4); Mean Corpuscular Hemoglobin 31.6 pg (27.0-31.2); Mean Corpuscular Volume 91.5 fl (81-99); Mean Platelet Volume 7.3 fl (7.4-10.4); Monocytes # 0.5 K/mm3 (0.1-1.0); Neutrophils % 67.8 % (37.0-80.0); Nitrate,Urine Negative (Negative); Platelet Count 261 K/mm3 (142-424); Protein,Urine Negative (Negative); Red Cell Distribution Width 12.7 % (11.5-17.5); Specific Gravity, Urine 1.025 (1.005-1.030); Urobilinogen,Urine 0.2 EU/dl (0.2); White Blood Count 10.3 K/mm3 (4.8-10.8)
[2019-12-18 21:39] LABS: Bacteria,Urine Trace /lpf; WBC,Urine Occasional #/hpf (0-3)
[2019-12-18 21:43] LABS: Chloride 107 mmol/L (98-107); Potassium 3.9 mmoL/L (3.5-5.1); Sodium 138 mmol/L (136-145)
[2019-12-18 21:45] LABS: Amylase 63 U/L (30-110); Lipase 168 U/L (23-300)
[2019-12-18 21:46] LABS: Alanine Aminotransferase 34 U/L (12-78); Albumin Level 4.4 g/dl (3.5-5.0); Albumin/Globulin Ratio 1.2 (1.1-1.8); Alkaline Phosphatase 90 U/L (38-126); Anion Gap 8.9 mEq/L (5-15); Aspartate Amino Transferase 36 U/L (14-36); Bilirubin,Total 0.6 mg/dl (0.2-1.3); Blood Urea Nitrogen 11 mg/dl (7-17); Calcium 9.1 mg/dl (8.4-10.2); Carbon Dioxide 26 mmol/L (22.0-30.0); Creatinine Clearance Estimated 130 mL/min (50-200); Estimated Glomerular Filt Rate 82 ml/min (>60); GFR (African American) 99 ML/MIN (>60); Globulin 3.6 g/dL (1.3-3.2); Glucose 98 mg/dl (74-100)
[2019-12-18 21:51] LABS: C-Reactive Protein 5.3 mg/L (0-4)
[2019-12-18 21:57] LABS: Erythrocyte Sedimentation Rate 15 mm/hr (0-20)
[2019-12-18 22:06] VITALS: BP 121/80; PULSE 71; RESP 15; O2SAT 98
--- NOTE | 2019-12-18 22:26 | HMH.EDNVD ---
ED Disposition Clinical Impression: Abdominal pain Qualifiers: Abdominal location: right lower quadrant Qualified Code(s): R10.31 - Right lower quadrant pain Disposition: Admitted as Observation Condition on Discharge: Good Referrals: Narinder Dior MD [Primary Care Provider] - - Critical Care Critical Care Time: No Attestation: On 12/18/19, the high probability of a clinically significant, sudden or life threatening deterioration of the following system(s) required my full and direct attention, intervention and personal management. The time I documented below is in addition to time spent performing reported procedures but includes the following listed in this critical care notation. Medical Decision Making - Medical Records Medical records reviewed: Yes: I reviewed the patient's medical records. - Ray Inquiry Pt receiving controlled substance: No Vital Signs: 12/18/19 21:06 12/18/19 22:06 Temperature 98.4 F Temperature Source Oral Pulse Rate [Left Radial] 66 71 Respiratory Rate 16 15 Blood Pressure [Right Arm] 127/86 121/80 Blood Pressure Mean [Right Arm] 99 93 Blood Pressure Source [Right Arm] Automatic Cuff Automatic Cuff Blood Pressure Position [Right Arm] Sitting Sitting 02 Sat by Pulse Oximetry 97 98 Oxygen Delivery Method Room Air Room Air - Lab Data Lab results reviewed: Yes: I reviewed the patient's lab results. Lab Results 12/18/19 21:25: Urine Color Yellow, Urine Appearance Clear, Urine pH 6.0, Ur Specific [place] 1.025, Urine Protein Negative, Urine Glucose (UA) Negative, Urine Ketones Negative, Urine Blood Trace-i, Urine Nitrate Negative, Urine Bilirubin Negative, Urine Urobilinogen 0.2, Ur Leukocyte Esterase Negative, Urine WBC Occasional, Ur Squamous Epith Cells 3-5, Urine Bacteria Trace 12/18/19 21:25: C-Reactive Protein 5.3 H, Amylase 63, Lipase 168 12/18/19 21:25: WBC 10.3, RBC 5.00, Hgb 15.8, Hct 45.8, MCV 91.5, MCH 31.6 H, MCHC 34.6, RDW 12.7, Plt Count 261, MPV 7.3 L, Neut % (Auto) 67.8, Lymph % (Auto) 23.3, [place] % (Auto) 5.0, Eos % (Auto) 3.6, Baso % (Auto) 0.3, Neut # (Auto) 7.0, Lymph # (Auto) 2.4, [place] # (Auto) 0.5, Eos # (Auto) 0.4, Baso # (Auto) 0.0, ESR 15 12/18/19 21:25: Sodium 138, Potassium 3.9, Chloride 107, Carbon Dioxide 26, Anion Gap 8.9, BUN 11, Creatinine 0.80, Estimated Creat Clear 130, Estimated GFR 82, Est GFR ( Amer) 99, Glucose 98, Calcium 9.1, Total Bilirubin 0.6, AST 36, ALT 34, Alkaline Phosphatase 90, Total Protein 8.0, Albumin 4.4, Globulin 3.6 H, Albumin/Globulin Ratio 1.2 Result diagrams: 12/18/19 21:25 12/18/19 21:25 Orders (Tests/Meds): ED MEDICATIONS Generic Name Dose Route Start Last Admin Trade Name Freq PRN Reason Stop Dose Admin Sodium Chloride 1,000 mls @ 999 mls/hr 12/18/19 21:30 12/18/19 21:28 Sod Chlor 0.9% 1000ml Bag IV 12/18/19 22:30 999 mls/hr .Q1H1M KADEN Administration Discontinued Medications Generic Name Dose Route Start Last Admin Trade Name Freq PRN Reason Stop Dose Admin Ioversol 75 ml 12/18/19 22:16 12/18/19 22:17 Rad-Optiray 350 100ml Vial IV 12/18/19 22:17 75 ml ONCE ONE Administration Protocol Ketorolac Tromethamine 30 mg 12/18/19 21:23 12/18/19 21:28 Toradol 30mg/Ml Vial IV 12/18/19 21:24 30 mg ONCE ONE Administration Ondansetron HCl 4 mg 12/18/19 21:23 12/18/19 21:28 Zofran 4mg/2ml Vial IV 12/18/19 21:24 4 mg ONCE ONE Administration Promethazine HCl 12.5 mg 12/18/19 22:10 12/18/19 22:12 Phenergan 25mg/Ml 1ml Vial IV 12/18/19 22:11 12.5 mg ONCE ONE Administration Sodium Chloride 25 ml 12/18/19 22:10 12/18/19 22:12 Sod Chlor 0.9% 25ml Bag IV 12/18/19 22:11 25 ml ONCE ONE Administration Sodium Chloride 10 ml 12/18/19 22:16 12/18/19 22:16 Rad-Saline Flush 10ml Syringe IV 12/18/19 22:17 10 ml ONCE ONE Administration ORDERS Category Date Time Status CT abdomen pelvis w con Stat Cat Scan 12/18/19 21:23 Taken -
[2019-12-18 23:00] VITALS: BP 118/79; PULSE 69; RESP 16; O2SAT 97
--- NOTE | 2019-12-18 23:17 | PC.NURSE ---
report called to Marcia RN
[2019-12-18 23:28] VITALS: BP 127/86; PULSE 67; RESP 16; TEMP 36.8; O2SAT 97
[2019-12-18 23:29] VITALS: BP 132/76; PULSE 70; RESP 16; TEMP 36.7; O2SAT 98; BMI 34.5
--- NOTE | 2019-12-18 23:29 | PC.NURSE ---
patient up to floor via wheelchair.
[2019-12-19 04:00] VITALS: BP 116/74; PULSE 92; RESP 16; TEMP 36.7; O2SAT 97
--- NOTE | 2019-12-19 05:35 | PC.NURSE ---
A&OX4. PT TOLERATING RA WELL THIS SHIFT. PT HAS C/O 9/10 PAIN TO HER R ABD, ALONG WITH NA. TREATED WITH MORPHINE AND ZOFRAN PER MAR. ON REASSESSMENT, PT FOUND TO BE RESTING IN BED. PT HAS HAD NO OTHER COMPLAINTS. TOLERATING NPO DIET WELL. PT INDEPENDENT, AT BEDSIDE. VSS WILL CONTINUE TO MONITOR.
[2019-12-19 06:17] LABS: Chloride 111 mmol/L (98-107)
[2019-12-19 06:18] LABS: Potassium 4.2 mmoL/L (3.5-5.1); Sodium 140 mmol/L (136-145)
[2019-12-19 06:19] LABS: Lymphocytes # 2.2 K/mm3 (0.7-4.5); Monocytes # 0.4 K/mm3 (0.1-1.0)
[2019-12-19 06:20] LABS: Blood Urea Nitrogen 11 mg/dl (7-17); Creatinine Clearance Estimated 151 mL/min (50-200); Estimated Glomerular Filt Rate 82 ml/min (>60); GFR (African American) 99 ML/MIN (>60)
[2019-12-19 06:21] LABS: Anion Gap 7.2 mEq/L (5-15); Calcium 8.2 mg/dl (8.4-10.2); Carbon Dioxide 26 mmol/L (22.0-30.0); Glucose 93 mg/dl (74-100)
[2019-12-19 06:27] LABS: Basophils % 0.3 % (0.1-2.0); Eosinophils # 0.2 K/mm3 (0.0-0.4); Eosinophils % 3.7 % (0.1-12.0); Hematocrit 39.8 % (37.0-47.0); Lymphocytes % 33.2 % (10-50); Mean Corpuscular HGB Conc 35.3 g/dL (31.8-35.4); Mean Corpuscular Hemoglobin 31.5 pg (27.0-31.2); Mean Corpuscular Volume 89.2 fl (81-99); Mean Platelet Volume 7.5 fl (7.4-10.4); Monocytes % 6.8 % (1.7-9.3); Neutrophils # 3.6 K/mm3 (1.8-7.8); Platelet Count 221 K/mm3 (142-424); Red Blood Count 4.46 M/mm3 (4.20-5.40); Red Cell Distribution Width 12.7 % (11.5-17.5); White Blood Count 6.5 K/mm3 (4.8-10.8)
--- NOTE | 2019-12-19 07:05 | HMH.GSHP ---
HPI HPI: This is a 34-year-old female who presented overnight with increasing lower abdominal pain. Evaluation emergency department revealed her to be afebrile with stable normal vital signs. Her white blood cell count was normal. A CT scan did reveal a 7 mm appendix with no definitive periappendiceal fat stranding or other signs consistent with appendicitis. She had a prior CT scan that also revealed a 7 mm appendix. She has continued to have fairly significant pain mostly in the right lower quadrant with some associated nausea. The decision was made to admit overnight for ongoing evaluation/serial abdominal exams. HPI from emergency department evaluation: Nausea/Vomiting/Diarrhea HPI - General Chief complaint: Abdominal Pain Stated complaint: Stomach pain,nausa Time Seen by Provider: 12/18/19 21:15 Mode of Arrival: Ambulatory Source of Information: Patient, Medical Record Limitations: No Limitations Description of Symptoms (Recalled from ER Triage Doc. by RN): pt c/o generalized abd. pain since this morning that has progressed to a stabbing RLQ pain and nasuea. pt rates her pain a 7 on a 0-10 scale at this time. - History of Present Illness HPI Narrative: pt with abd pain with nausea since this am with dec appetite MD complaint: nausea, abdominal pain Onset (ago): hour(s) Associated Abdominal Pain: Yes Location of pain: RLQ Severity: moderate Consistency: constant Associated symptoms: denies other symptoms [facility] History Medical History: Reports:: Anxiety, Depression, Hyperlipidemia, Hypertension Denies:: Cancer, Diabetes Mellitus Type 1, Diabetes Mellitus Type 2, MRSA *Have you ever received a pneumonia vaccine?: No *Have you received a flu vaccine this season?: No Other Medical History: Reports: Arthritis Other Surgeries: Yes: Cholecystectomy, Dilation and Curettage, Hysterectomy-Partial, Tubal Ligation, Other Amputation: No Fractures: No - *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 Educational Level: Completed High School Smoking Status: Current every day smoker Tobacco Type: cigarettes # Packs/Day (cigarettes): 1 #Yrs smoked (if former smoker): 6 Alcohol Intake: never Substance Use Type: denies use *Occupational Status:: employed Housing: house Household Members: spouse, children *Travel in the last 8 weeks: None - Psychiatric History Pschychiatric History:: Reports:: Anxiety, Depression Family Hx:: Cancer, Heart Attack, Hypertension, Stroke, Thyroid Disorder Review of Systems - Constitutional Denies chills, Denies excessive sweating - Eyes Denies loss of vision - ENT Denies change in voice - *Cardiovascular Denies chest pain - *Respiratory Denies cough - *Gastrointestinal Reports abdominal pain, Reports nausea, Denies vomiting blood, Denies black, tarry stools - *Genitourinary Denies difficulty urinating - *Musculoskeletal Denies joint pain - Integumentary/Breasts Denies rash - *Neurologic Denies confusion, Denies headache(s), Denies seizure-like activity - Psychiatric Denies anxiety - Endocrine Denies cold intolerance - Hematologic/Lymphatic Denies easy bleeding - Allergic/Immunologic Denies GI upset with certain foods Meds Home Medications Medication Instructions Recorded Confirmed Type Adalimumab [Humira] 40 mg SQ WEEKLY 09/21/19 12/18/19 History Tizanidine HCl [Tizanidine HCl 2 mg PO TID PRN 09/21/19 12/18/19 History 2mg] Propranolol HCl [Inderal Xl] 80 mg PO BID 12/18/19 12/18/19 History Venlafaxine HCl [Effexor Xr] 75 mg PO DAILY 12/18/19 12/18/19 History Allergies Allergy/AdvReac Type Severity Reaction Status Date / Time cefaclor [From CECLOR] Allergy Unknown Verified 12/18/19 21:25 metoclopramide [From REGLAN] Allergy Unknown Verified 12/18/19 21:25 sulfamethoxazole Allergy Unknown Verified 12/18/19 21:25 [From BACTRIM] trimethoprim [From BACTRIM] Allergy Unknown Verified 12/18/19 21:25 Exam Vital signs and Labs for Last 24 Hours: Temp Pulse Res
--- NOTE | 2019-12-19 07:11 | P.CONPHA_ITS ---
[facility] VTE Monitoring - Patient Demographics Admission date: 12/18/19 Report Date: 12/19/19 Time: 07:11 Allergies/Adverse Reactions: Patient Allergies cefaclor [From CECLOR] Allergy (Unknown, Verified 12/18/19 21:25) metoclopramide [From REGLAN] Allergy (Unknown, Verified 12/18/19 21:25) sulfamethoxazole [From BACTRIM] Allergy (Unknown, Verified 12/18/19 21:25) trimethoprim [From BACTRIM] Allergy (Unknown, Verified 12/18/19 21:25) Height: 1.68 m Weight: 97.522 kg Patient Problems: Current Active Problems (Last Updated 11/22/17 @ 09:03 by MATT Zuniga) Abdominal pain (Acute) Nausea (Acute) - VTE Risk Labs: VTE Related Lab Results Hgb 14.0 g/dL (12.2-16.2) D 12/19/19 06:03 Hct 39.8 % (37.0-47.0) 12/19/19 06:03 Plt Count 221 K/mm3 (142-424) 12/19/19 06:03 BUN 11 mg/dl (7-17) 12/19/19 06:03 Creatinine 0.80 mg/dl (0.52-1.04) 12/19/19 06:03 Estimated Creat Clear 151 mL/min (50-200) 12/19/19 06:03 Clinical Trial Participant: No - Prophylaxis VTE Prophylaxis Ordered?: Yes Types of VTE Prophylaxis: TEDS Knee High
--- NOTE | 2019-12-19 07:15 | HMH.PHAINT ---
HOME MEDICATION RECONCILIATION CONFIRMED USING LIST FROM [facility]
[2019-12-19 07:28] VITALS: BP 124/85; PULSE 87; RESP 19; TEMP 36.7; O2SAT 99
--- NOTE | 2019-12-19 08:42 | CT_ITS ---
PROCEDURE: CT ABDOMEN PELVIS W CON CLINICAL INDICATION: abdominal pain (RLQ) - follow-up from prior scan Continued right lower quadrant, follow-up abnormal CT scan COMPARISON: CT ABDOMEN PELVIS W CON from 12/18/2019 TECHNIQUE: IV Contrast: 75ML OPTIRAY 350 Oral Contrast 20ml Gastroview Axial images obtained with sagittal and coronal reformats. All CT scans at the facility use one or more dose reduction, viz: automated exposure control, ma/kV adjustment per patient size (including targeted exams where dose is matched to indication, i.e. head), or iterative reconstruction technique. FINDINGS: LOWER THORAX: There are atelectatic changes in the lung bases. ABDOMEN & PELVIS: Prior cholecystectomy. Liver, spleen, adrenal glands, pancreas, and kidneys have an unremarkable appearance. No renal or ureteral calculi. No hydronephrosis. Oral contrast was given with good opacification of the colon noted. There is some contrast within the proximal aspect of the appendix. The appendix is slightly prominent upper limits of normal at 7 mm and visibly appears somewhat less prominent compared to the previous study. There is no stranding of the periappendiceal fat. No abscess. The appendix does course posterior to the cecum and proximal ascending colon. No localized fluid collection. There is a small amount of fluid in the pelvis possibly physiologic. There has been a prior hysterectomy. No intestinal obstruction or free air. IMPRESSION: Overall no significant change in the mildly prominent retrocecal appendix. There is minimal prominence of the body of the appendix however, this is not significantly changed and there is no stranding of the periappendiceal fat. This may only indicate a normal variant. Overall, the findings are less concerning for appendicitis than previously. Please correlate with clinical parameters. Dictated by: Darrin Gonsales MD 12/19/2019 13:15 Electronically signed by Darrin Gonsales MD in [place] 12/19/2019 13:15
--- NOTE | 2019-12-19 12:16 | PC.NURSE ---
Pt off floor for CT scan
--- NOTE | 2019-12-19 12:39 | PC.NURSE ---
Pt back from CT scan
[2019-12-19 14:59] VITALS: BP 120/81; PULSE 89; RESP 19; TEMP 36.6; O2SAT 98
[2019-12-19 18:10] VITALS: PULSE 85; PULSE 86; O2SAT 98
[2019-12-19 18:25] LABS: C-Reactive Protein 6.6 mg/L (0-4)
[2019-12-19 19:42] VITALS: BP 146/93; PULSE 87; RESP 16; TEMP 36.6; O2SAT 98
[2019-12-19 20:00] VITALS: O2SAT 98
[2019-12-20 04:00] VITALS: BP 124/70; PULSE 75; RESP 16; TEMP 36.8; O2SAT 97
--- NOTE | 2019-12-20 04:00 | PC.NURSE ---
Pt is A&OX4. pt medicated for nausea once this shift per MAR. Pt was nauseous after taking a shower. Pt ambulating independently to BR.Pt is NPO @ [place] for Dr. Schumacher. Pt resting well this shift. at bedside
[2019-12-20 05:00] VITALS: BMI 36.1
--- NOTE | 2019-12-20 07:06 | HMH.GSPN ---
Subjective Narrative: Feels a little bit better today . Exam Vital signs and Labs for Last 24 Hours: Temp Pulse Resp BP Pulse Ox 98.3 F 75 16 124/70 97 12/20/19 04:00 12/20/19 04:00 12/20/19 04:00 12/20/19 04:00 12/20/19 04:00 Laboratory Results - last 24 hr 12/19/19 18:00: C-Reactive Protein 6.6 H I & O for Last 24 hours: Intake & Output 12/17/19 12/18/19 12/19/19 12/20/19 11:59 11:59 11:59 11:59 Intake Total 605 / 605 2553 / 2553 Balance 605 / 605 2553 / 2553 Weight 215 lb 224 lb 7 oz - Constitutional no acute distress - *Routine Respiratory Exam Absent: respiratory distress - *Routine Cardiovascular Exam Present: RRR - *Routine Abdominal Exam Present: soft Comments: Some tenderness in the lower abdomen (more on right) that is overall improved versus yesterday. Progress Note: A&P (1) Nausea Status: Acute Current Visit: Yes (2) Abdominal pain Status: Acute Assessment and plan: No definitive evidence of appendicitis noted on follow-up CT scan. The patient remains afebrile. Gastroenterology consult pending Current Visit: Yes
[2019-12-20 07:35] LABS: Basophils % 0.3 % (0.1-2.0); Eosinophils # 0.2 K/mm3 (0.0-0.4); Eosinophils % 3.2 % (0.1-12.0); Hematocrit 38.5 % (37.0-47.0); Hemoglobin 13.6 g/dL (12.2-16.2); Lymphocytes # 1.6 K/mm3 (0.7-4.5); Lymphocytes % 25.7 % (10-50); Mean Corpuscular HGB Conc 35.3 g/dL (31.8-35.4); Mean Corpuscular Hemoglobin 31.2 pg (27.0-31.2); Mean Corpuscular Volume 88.4 fl (81-99); Mean Platelet Volume 7.5 fl (7.4-10.4); Monocytes # 0.3 K/mm3 (0.1-1.0); Monocytes % 4.8 % (1.7-9.3); Neutrophils # 4.1 K/mm3 (1.8-7.8); Platelet Count 218 K/mm3 (142-424); Red Blood Count 4.36 M/mm3 (4.20-5.40); Red Cell Distribution Width 12.7 % (11.5-17.5); White Blood Count 6.1 K/mm3 (4.8-10.8)
[2019-12-20 08:00] VITALS: BP 138/84; PULSE 91; RESP 16; TEMP 36.9; O2SAT 95
[2019-12-20 14:02] VITALS: BMI 36.1
--- NOTE | 2019-12-20 15:21 | HMH.PROC ---
[facility] Procedure Note Procedure Note:: Gastroenterology Consultation Date of Service-December 20, 2019 History of Present Illness: Mrs. Muro is a 34-year-old female who presented with right lower quadrant abdominal pain on Monday that radiated into the back. She did come to the emergency department and the appendix was mildly thickened but this was unchanged from previously. She was afebrile and her white blood cell count was normal. A repeat scan 12 hours later was noted to be possibly improved with no evidence of acute appendicitis. The patient has had chronic constipation/obstipation. She did have a laparoscopic pelvic surgery by her renewals representative (Dr. Perea in [place]) 1 month ago with lysis of adhesions. She does state that her bowel function has improved since that time but she continues to have some obstipation/incomplete defecation. She does report bloating and gassiness. She has nausea. She does report some heartburn and throat burning. She reports longer periods of time on the commode and excessive wiping. The patient did have a colonoscopy 4 to 5 years ago (Dr. Inocente Arcos) which was reportedly normal. Past Medical History: 1. Anxiety/depression 2. Hypertension 3. Endometriosis Past Surgical History: 1. Cholecystectomy 2. Laparoscopy with lysis of adhesions 3. Hysterectomy 4. Tubal ligation Medications: 1. Humira 2. Tizanidine 3. Effexor 4. Propranolol ALLERGIES: 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: The patient is with children. She lives in [facility], [place]. She is employed. She reports no alcohol but does smoke 1 pack of cigarettes daily Family History: Noncontributory Review of Systems: See chart Physical Examination: Gen.: The patient is a well-developed well-nourished individual in no acute distress HEENT: Normocephalic/atraumatic extraocular movements are intact anicteric Neck: Supple no lymphadenopathy Chest: Clear to auscultation Cardiovascular: Regular rate and rhythm Abdomen: Normoactive bowel sounds soft, tenderness in the right lower quadrant, mild distention, palpable stool and gas present, no masses, no rebound or guarding no hepatosplenomegaly Extremities: No edema Labs: See chart Radiology: See chart Impression/Plan: 1. Right lower quadrant abdominal pain. The patient does have obstipation by clinical history and by CT scan of the abdomen. She does have a history of constipation predominant IBS but did improve after her recent laparoscopy. We have discussed dietary measures (low residue). I would like for her to begin treatment for visceral sensitivity (buspirone 10 mg p.o. twice daily). I will likely consider adding Zelnorm to her regimen and I will have her follow-up in 3 to 4 weeks as an outpatient (Vicenta MENA). We will also determine whether diagnostic colonoscopy is warranted at that time. I do not feel that this represents acute appendicitis presently and the scan and labs do not support.
[2019-12-20 16:00] VITALS: BP 168/69; PULSE 73; RESP 18; TEMP 36.9; O2SAT 95
--- NOTE | 2019-12-20 16:37 | HMH.DCSUM ---
General - General Admission date:: 12/18/19 Discharge date: 12/20/19 HPI HPI: This is a 34-year-old female who presented overnight with increasing lower abdominal pain. Evaluation emergency department revealed her to be afebrile with stable normal vital signs. Her white blood cell count was normal. A CT scan did reveal a 7 mm appendix with no definitive periappendiceal fat stranding or other signs consistent with appendicitis. She had a prior CT scan that also revealed a 7 mm appendix. She has continued to have fairly significant pain mostly in the right lower quadrant with some associated nausea. The decision was made to admit overnight for ongoing evaluation/serial abdominal exams. HPI from emergency department evaluation: Nausea/Vomiting/Diarrhea HPI - General Chief complaint: Abdominal Pain Stated complaint: Stomach pain,nausa Time Seen by Provider: 12/18/19 21:15 Mode of Arrival: Ambulatory Source of Information: Patient, Medical Record Limitations: No Limitations Description of Symptoms (Recalled from ER Triage Doc. by RN): pt c/o generalized abd. pain since this morning that has progressed to a stabbing RLQ pain and nasuea. pt rates her pain a 7 on a 0-10 scale at this time. - History of Present Illness HPI Narrative: pt with abd pain with nausea since this am with dec appetite MD complaint: nausea, abdominal pain Onset (ago): hour(s) Associated Abdominal Pain: Yes Location of pain: RLQ Severity: moderate Consistency: constant Associated symptoms: denies other symptoms Hospital Course Hospital Course: The patient was admitted to the surgical service. She continued to have some right lower quadrant pain and tenderness to palpation. A second CT scan with IV and p.o. contrast was performed that revealed changes more consistent with normal variant with regard to the appendix. She remained afebrile with stable and normal vital signs. The gastroenterology service was consulted and recommended Bentyl 10 mg twice daily for visceral sensitivity. Please see impression/plan from gastroenterology consultation for the below. GI Consult: Impression/Plan: 1. Right lower quadrant abdominal pain. The patient does have obstipation by clinical history and by CT scan of the abdomen. She does have a history of constipation predominant IBS but did improve after her recent laparoscopy. We have discussed dietary measures (low residue). I would like for her to begin treatment for visceral sensitivity (buspirone 10 mg p.o. twice daily). I will likely consider adding Zelnorm to her regimen and I will have her follow-up in 3 to 4 weeks as an outpatient (Vicenta MENA). We will also determine whether diagnostic colonoscopy is warranted at that time. I do not feel that this represents acute appendicitis presently and the scan and labs do not support. Note: By the afternoon of 12/20/2019 she was feeling much better . She is dated that she was ready to go home . She continued to have some right lower quadrant pain but stated that her overall symptoms were dramatically improved Objective Vital signs: Temp Pulse Resp BP Pulse Ox 98.4 F 73 18 168/69 H 95 12/20/19 16:00 12/20/19 16:00 12/20/19 16:00 12/20/19 16:00 12/20/19 16:00 no acute distress - *Routine HEENT Exam Head: Present: normocephalic, atraumatic Eye: Present: EOMI ENT: Present: mucous membranes moist - *Routine Neck Exam Present: full ROM - Routine Chest/Breast/Axilla Exam Chest wall: Absent: tenderness - *Routine Respiratory Exam Absent: respiratory distress - *Routine Cardiovascular Exam Present: RRR - *Routine Abdominal Exam Present: soft, tenderness - *Routine Extremities Exam Present: full ROM. Absent: cyanosis, clubbing, edema - Routine Back/Spine/Pelvis Exam Back/Spine: Present: full ROM - *Routine Skin Exam Present: intact. Absent: cyanosis, erythema - *Routine Neurological Exam Present: brian
== END 2019-12-20 17:16 | disposition home or self-care (01) ==
LOC: ER 22:48 → 2ND 12-19 00:11
PROVIDERS: Admitting Provider Surgery; Emergency Provider Emergency Medicine; PCP Family Medicine; Visit Provider Surgery
DX: K58.1 Irritable bowel syndrome with constipation (principal); R10.31 Right lower quadrant pain; R11.0 Nausea
CPT/HCPCS: 36415; 74177; 80048; 80053; 81001; 82150; 83690; 85025; 85651; 86140; 94640; 94761; 96365; 96375; 99284; G0378; J2405; Q9967

== ENCOUNTER 2020-03-13 08:21 | Emergency (ER) | payer OTHER, SELFPAY ==
[2020-03-13 08:27] VITALS: BP 149/93; PULSE 87; RESP 15; TEMP 36.9; O2SAT 99; BMI 32.3
--- NOTE | 2020-03-13 08:49 | XR_ITS ---
PROCEDURE: XR CHEST 2V CLINICAL HISTORY: cough COMPARISON: CT CTAC CTA-CHEST from 05/27/2016 CR CXR CHEST(2 VIEWS-NOT PORTABLE) from 05/27/2016 CR XR CHEST PORTABLE from 09/26/2019 CR XR CHEST 2V from 10/05/2019 FINDINGS: The cardiomediastinal silhouette and pulmonary vascularity are within normal limits. The lungs are clear without infiltrates, suspicious nodules, or pleural effusions. No acute bony abnormalities. IMPRESSION: No acute findings. Dictated by: Darrin Gonsales MD 03/13/2020 09:22 Darrin Gonsales MD in [place] 03/13/2020 09:22
--- NOTE | 2020-03-13 08:59 | HMH.EDGENADL ---
ED Disposition Clinical Impression: Acute onset aura migraine Qualifiers: Status migrainosus presence: without status migrainosus Intractability: not intractable Qualified Code(s): G43.109 - Migraine with aura, not intractable, without status migrainosus Disposition: Home, Self-Care Condition on Discharge: Good Instructions: DI for Migraine Referrals: Narinder Dior MD [Primary Care Provider] - - Critical Care Critical Care Time: No Attestation: On 03/13/20, the high probability of a clinically significant, sudden or life threatening deterioration of the following system(s) required my full and direct attention, intervention and personal management. The time I documented below is in addition to time spent performing reported procedures but includes the following listed in this critical care notation. Medical Decision Making - Ray Inquiry Pt receiving controlled substance: No Vital Signs: 03/13/20 08:27 03/13/20 09:17 03/13/20 10:04 Temperature 98.5 F Temperature Source Oral Pulse Rate [Right Radial] 87 79 75 Respiratory Rate 15 Blood Pressure [Right Arm] 149/93 H 146/82 H 136/90 Blood Pressure Mean [Right Arm] 111 103 105 Blood Pressure Source [Right Arm] Automatic Cuff Automatic Cuff Blood Pressure Position [Right Arm] Sitting Sitting 02 Sat by Pulse Oximetry 99 99 100 Oxygen Delivery Method Room Air - Lab Data Lab Results 03/13/20 09:00: WBC 5.0, RBC 4.99, Hgb 15.4, Hct 44.7, MCV 89.5, MCH 30.9, MCHC 34.6, RDW 12.3, Plt Count 241, MPV 7.2 L, Neut % (Auto) 64.6, Lymph % (Auto) 24.5, [place] % (Auto) 6.4, Eos % (Auto) 4.1, Baso % (Auto) 0.4, Neut # (Auto) 3.2, Lymph # (Auto) 1.2, [place] # (Auto) 0.3, Eos # (Auto) 0.2, Baso # (Auto) 0.0 03/13/20 09:00: Sodium 140, Potassium 3.9, Chloride 110 H, Carbon Dioxide 26, Anion Gap 7.9, BUN 9, Creatinine 0.70, Estimated Creat Clear 161, Estimated GFR 95, Est GFR ( Amer) 115, Glucose 99, Calcium 9.2, Troponin I < 0.01 Result diagrams: 03/13/20 09:00 03/13/20 09:00 Orders (Tests/Meds): ED MEDICATIONS Discontinued Medications Generic Name Dose Route Start Last Admin Trade Name Vinh PRN Reason Stop Dose Admin Sodium Chloride 1,000 mls @ 999 mls/hr 03/13/20 09:00 03/13/20 09:07 Sod Chlor 0.9% 1000ml Bag IV 03/13/20 10:00 999 mls/hr .Q1H1M KADEN Administration Ketorolac Tromethamine 30 mg 03/13/20 08:50 03/13/20 09:06 Toradol 30mg/Ml Vial IM 03/13/20 08:51 Not Given ONCE ONE Ketorolac Tromethamine 30 mg 03/13/20 09:05 03/13/20 09:07 Toradol 30mg/Ml Vial IV 03/13/20 09:06 30 mg ONCE ONE Administration ORDERS Category Date Time Status Troponin I Q3H Lab 03/13/20 12:00 Ordered Troponin I Q3H Lab 03/13/20 15:00 Ordered - Radiology Data #1 Image(s): Chest Image Reviewed: Yes I reviewed the patient's radiology results Preliminary Findings: Normal/NAD - Reevaluation(s) Time: 10:05 Reevaluation #1: On reevaluation, patient is feeling better. Repeat neurologic exam is normal. No significant elevation in troponin. Patient is to follow-up with PCP. Continue taking normal regimen for headache. Given strict return precautions. Verbalized understanding. Medical Decision Narrative: This is a 34-year-old female presented to the emergency department with headache. I do believe the patient's symptoms are consistent with a migraine. She states that they have significantly improved. Neurologic exam is normal. Work-up initiated. Patient is low risk for acute coronary syndrome. General Adult HPI - General Chief complaint: PAIN Stated complaint: headache jaw pain Time Seen by Provider: 03/13/20 08:30 Mode of Arrival: Ambulatory Limitations: No Limitations Description of Symptoms (Recalled from ER Triage Doc. by RN): pt states she was sitting outside this morning smoking when she suddenly got a pain that shot through her head and now her jaws feel throbbing. - History of Present Illnes
[2020-03-13 09:17] VITALS: BP 146/82; PULSE 79; O2SAT 99
[2020-03-13 09:18] LABS: Basophils % 0.4 % (0.1-2.0); Eosinophils # 0.2 K/mm3 (0.0-0.4); Eosinophils % 4.1 % (0.1-12.0); Hematocrit 44.7 % (37.0-47.0); Hemoglobin 15.4 g/dL (12.2-16.2); Lymphocytes # 1.2 K/mm3 (0.7-4.5); Lymphocytes % 24.5 % (10-50); Mean Corpuscular HGB Conc 34.6 g/dL (31.8-35.4); Mean Corpuscular Hemoglobin 30.9 pg (27.0-31.2); Mean Corpuscular Volume 89.5 fl (81-99); Mean Platelet Volume 7.2 fl (7.4-10.4); Monocytes # 0.3 K/mm3 (0.1-1.0); Monocytes % 6.4 % (1.7-9.3); Neutrophils # 3.2 K/mm3 (1.8-7.8); Neutrophils % 64.6 % (37.0-80.0); Platelet Count 241 K/mm3 (142-424); Red Blood Count 4.99 M/mm3 (4.20-5.40); Red Cell Distribution Width 12.3 % (11.5-17.5)
[2020-03-13 09:26] LABS: Anion Gap 7.9 mEq/L (5-15); Blood Urea Nitrogen 9 mg/dl (7-17); Calcium 9.2 mg/dl (8.4-10.2); Carbon Dioxide 26 mmol/L (22.0-30.0); Chloride 110 mmol/L (98-107); Creatinine Clearance Estimated 161 mL/min (50-200); Estimated Glomerular Filt Rate 95 ml/min (>60); GFR (African American) 115 ML/MIN (>60); Glucose 99 mg/dl (74-100); Potassium 3.9 mmoL/L (3.5-5.1); Sodium 140 mmol/L (136-145)
[2020-03-13 09:39] LABS: Troponin I < 0.01 ng/ml (0.00-0.034)
[2020-03-13 10:04] VITALS: BP 136/90; PULSE 75; O2SAT 100
[2020-03-13 10:12] VITALS: BP 123/74; PULSE 74; RESP 16; TEMP 36.6; O2SAT 98
== END 2020-03-13 10:13 | disposition home or self-care (01) ==
PROVIDERS: Emergency Provider Emergency Medicine; PCP Family Medicine
DX: G43.109 Migraine with aura, not intractable, without status migrainosus (principal); F41.8 Other specified anxiety disorders; I10 Essential (primary) hypertension; E78.5 Hyperlipidemia, unspecified; F17.210 Nicotine dependence, cigarettes, uncomplicated; Z79.899 Other long term (current) drug therapy; Z90.49 Acquired absence of other specified parts of digestive tract; Z90.79 Acquired absence of other genital organ(s)
CPT/HCPCS: 71046; 80048; 84484; 85025; 96365; 96375; 99283

== ENCOUNTER 2020-07-03 13:28 | Emergency (ER) | payer OTHER, SELFPAY ==
[2020-07-03 14:19] VITALS: BP 130/108; PULSE 99; RESP 14; TEMP 36.8; O2SAT 100; BMI 33.9
--- NOTE | 2020-07-03 14:22 | HMH.EDUTC ---
[facility] [place] Clinical Impression: URI (upper respiratory infection) Qualifiers: URI type: unspecified URI Qualified Code(s): J06.9 - Acute upper respiratory infection, unspecified Disposition: Home, Self-Care Condition on Discharge: Good Instructions: DI for Sinusitis, DI for COVID-19 (Suspected or Confirmed ), Coronavirus Disease 2019, COVID-19: Testing and Tracing, Preventing the Spread of Coronavirus Discharge Instructions Additional Instructions: *Monitor Temp, Over the counter Motrin or Tylenol as directed/as needed Tylenol every 4 hours and Motrin every 6 hours (as long as your family doctor has told you that you can take it) for fever or pain. and straight to ER if unable to lower temp less than 101.0 after medication given *Warm salt water gargles may help to soothe the throat *Throat Lozenges *Warm fluids like tea with honey may help to soothe the throat *Sleep elevated *Humidifier/Vaporizer Follow up IMMEDIATELY for new or worsening symptoms or no Noticeable improvement over the next 48-72 hours. 911 for difficulty breathing or swallowing You were tested for today for COVID19 your test result should be back in the next 24-48 hours, you may call to the [facility] to see if your test results are back in the next 48 hours [phone] [facility] hours are 9am-9pm You was given a handout with instructions for Self Quarantine and Self isolation for while you wait on test results and what to do if they are positive If you are positive the Health Dept will be contacting you also Prescriptions: methylPREDNISolone [Medrol 4mg tab] 4 mg PO DIRECTED #21 tab Transmission Status: Pending to [employer] # Azithromycin [Z-Kang 250mg Tab] 250 mg PO DIRECTED #6 tab Transmission Status: Pending to [employer] # Referrals: Narinder Dior MD [Primary Care Provider] - As needed Forms: Work/School Release Time of Disposition: 14:31 Medical Decision Making - Ray Inquiry Pt receiving controlled substance: No Ray was queried for this patient: No Vital Signs: 07/03/20 14:19 Temperature 98.3 F Temperature Source Oral Pulse Rate [Right] 99 H Respiratory Rate 14 Blood Pressure [Right Arm] 130/108 H Blood Pressure Mean [Right Arm] 115 Blood Pressure Source [Right Arm] Automatic Cuff Blood Pressure Position [Right Arm] Sitting 02 Sat by Pulse Oximetry 100 Oxygen Delivery Method Room Air Orders (Tests/Meds): ORDERS Category Date Time Status Covid-19 Nasal PCR ([facility]) Routine Lab 07/03/20 13:40 Received Medical Decision Narrative: {Paitent state that she has taken zpack and medrol dose pack in the past without reactions or complications [facility] [place] - General Stated complaint: sore throat,cough,SOA Time Seen by Provider: 07/03/20 14:22 Mode of Arrival: Ambulatory Source of Information: Patient Limitations: No Limitations Description of Symptoms (Recalled from Triage Doc. by RN): headache, bodyaches, sore throat, cough for 2 days HEENT Symptoms (Recalled from RN notes): Yes (headache, body aches, sore throat) Resp Symptoms (Recalled from RN notes): No Skin Symptoms (Recalled from RN notes): No MS Symptoms (Recalled from RN notes): No Functional Status (Recalled from RN notes): na - History of Present Illness Provider Complaint: Patient states thats she has been having bodyaches, chills, headache sinus pain and pressure along with cough for several days that has continued to get worse states that she feels like she may have a sinus infection so she come in to get checked Denies known exposure to COVID but wants to get tested - Related Data Home Medications Medication Instructions Recorded Confirmed Adalimumab [Humira] 40 mg SQ WEEKLY 09/21/19 12/18/19 Tizanidine HCl [Tizanidine HCl 4 mg PO HSP PRN 09/21/19 12/19/19 2mg] Propranolol HCl [Inderal Xl] 80 mg PO BID 12/18/19 12/18/19 Venlafaxine HCl [Effexor Xr] 75 mg PO DAILY 12/18/19 12/18/19 Cetirizine HCl 10 mg P
[2020-07-03 14:36] VITALS: BP 130/94; PULSE 99; RESP 16; TEMP 36.8; O2SAT 98
== END 2020-07-03 14:37 | disposition home or self-care (01) ==
PROVIDERS: Emergency Provider Nurse Practitioner; PCP Family Medicine
DX: Z20.822 Contact with and (suspected) exposure to COVID-19 (principal); J06.9 Acute upper respiratory infection, unspecified; I10 Essential (primary) hypertension; E78.5 Hyperlipidemia, unspecified; F41.8 Other specified anxiety disorders; F17.210 Nicotine dependence, cigarettes, uncomplicated; Z79.899 Other long term (current) drug therapy
CPT/HCPCS: 99202; G0463; U0003

== ENCOUNTER → 2020-07-15 14:48 | Outpatient (CLI) | payer OTHER, SELFPAY ==
[2020-07-15 16:07] LABS: Basophils # 0.1 K/mm3 (0-0.2); Basophils % 1.4 % (0.1-2.0); Eosinophils # 0.2 K/mm3 (0.0-0.4); Eosinophils % 3.5 % (0.1-12.0); Hematocrit 43.5 % (37.0-47.0); Hemoglobin 13.9 g/dL (12.2-16.2); Lymphocytes # 1.5 K/mm3 (0.7-4.5); Lymphocytes % 25.7 % (10-50); Mean Corpuscular HGB Conc 31.9 g/dL (31.8-35.4); Mean Corpuscular Hemoglobin 30.5 pg (27.0-31.2); Mean Corpuscular Volume 95.4 fl (81-99); Mean Platelet Volume 7.4 fl (7.4-10.4); Monocytes # 0.4 K/mm3 (0.1-1.0); Monocytes % 5.9 % (1.7-9.3); Neutrophils # 3.8 K/mm3 (1.8-7.8); Neutrophils % 63.6 % (37.0-80.0); Platelet Count 244 K/mm3 (142-424); Red Blood Count 4.56 M/mm3 (4.20-5.40); Red Cell Distribution Width 12.5 % (11.5-17.5)
[2020-07-17 07:53] LABS: Covid-19 Nasal PCR Sendout P&C NEGATIVE
== END ==
PROVIDERS: PCP Family Medicine; Visit Provider Physician Assistant
DX: Z11.52 Encounter for screening for COVID-19 (principal)
CPT/HCPCS: 36415; 85025; U0004

== ENCOUNTER → 2020-07-17 11:14 | Outpatient (CLI) | payer OTHER, SELFPAY ==
[2020-07-17 11:18] LABS: Adenovirus,PCR Not Detected (NotDetected); Bordetella Pertussis Not Detected (NotDetected); Chlamydophila Pneumoniae, PCR Not Detected (NotDetected); Coronavirus 229E Not Detected (NotDetected); Coronavirus NL63 Not Detected (NotDetected); Coronavirus OC43 Not Detected (NotDetected); Coronovirus HKU1,PCR Not Detected (NotDetected); Human Metapneumovirus Not Detected (NotDetected); Influenza A, PCR Not Detected (NotDetected); Influenza AH1, 2009 Not Detected (NotDetected); Influenza AH1, PCR Not Detected (NotDetected); Influenza AH3,PCR Not Detected (NotDetected); Influenza B, PCR Not Detected (NotDetected); Mycoplasma Pneumoniae, PCR Not Detected (NotDetected); Parainfluenza 1, PCR Not Detected (NotDetected); Parainfluenza 2, PCR Not Detected (NotDetected); Parainfluenza 3, PCR Not Detected (NotDetected); Parainfluenza 4, PCR Not Detected (NotDetected); Respiratory Syncytial Virus Not Detected (NotDetected); Rhinovirus/Enterovirus Not Detected (NotDetected)
--- NOTE | 2020-07-17 11:24 | XR_ITS ---
PROCEDURE: XR CHEST 2V CLINICAL HISTORY: BRONCHITIS COMPARISON: CT CTAC CTA-CHEST from 05/27/2016 CR XR CHEST PORTABLE from 09/26/2019 CR XR CHEST 2V from 10/05/2019 CR XR CHEST 2V from 03/13/2020 FINDINGS: The cardiomediastinal silhouette and pulmonary vascularity are within normal limits. The lungs are clear without infiltrates, suspicious nodules, or pleural effusions. No acute bony abnormalities. IMPRESSION: No acute findings. Dictated by: Darrin Gonsales MD 07/17/2020 13:43 Darrin Gonsales MD in [place] 07/17/2020 13:43
== END ==
PROVIDERS: PCP Family Medicine; Visit Provider Physician Assistant
DX: J40 Bronchitis, not specified as acute or chronic (principal)
CPT/HCPCS: 71046; 87486; 87581; 87633; 87798

== ENCOUNTER → 2021-02-11 14:36 | Outpatient (CLI) | payer OTHER, SELFPAY ==
[2021-02-11 15:26] LABS: Basophils # 0.1 K/mm3 (0-0.2); Basophils % 0.9 % (0.1-2.0); Eosinophils # 0.2 K/mm3 (0.0-0.4); Eosinophils % 3.5 % (0.1-12.0); Hematocrit 43.5 % (37.0-47.0); Hemoglobin 14.3 g/dL (12.2-16.2); Lymphocytes # 1.8 K/mm3 (0.7-4.5); Lymphocytes % 28.2 % (10-50); Mean Corpuscular Hemoglobin 29.2 pg (27.0-31.2); Mean Corpuscular Volume 88.7 fl (81-99); Mean Platelet Volume 7.4 fl (7.4-10.4); Monocytes # 0.4 K/mm3 (0.1-1.0); Monocytes % 5.5 % (1.7-9.3); Neutrophils % 61.9 % (37.0-80.0); Platelet Count 236 K/mm3 (142-424); Red Cell Distribution Width 12.5 % (11.5-17.5); White Blood Count 6.4 K/mm3 (4.8-10.8)
== END ==
PROVIDERS: PCP Physician Assistant; Visit Provider Physician Assistant
DX: Z20.822 Contact with and (suspected) exposure to COVID-19 (principal)
CPT/HCPCS: 36415; 85025; U0003

== ENCOUNTER → 2021-05-09 07:06 | Outpatient (CLI) | payer OTHER, SELFPAY ==
[2021-05-09 07:25] LABS: Influenza A, PCR Not Detected (NotDetected); Influenza B, PCR Not Detected (NotDetected)
[2021-05-09 08:16] LABS: Coronavirus 19, PCR Detected (NotDetected)
== END ==
PROVIDERS: PCP Family Medicine; Visit Provider Family Medicine
DX: Z20.822 Contact with and (suspected) exposure to COVID-19 (principal); U07.1 COVID-19
CPT/HCPCS: C9803; U0003; U0005

== ENCOUNTER 2021-05-11 07:41 | Outpatient (CLI) | payer OTHER, SELFPAY ==
[2021-05-11] VITALS (8 sets, daily range): BP systolic 131–142; BP diastolic 80–95; PULSE 83–99; RESP 16–20; TEMP 36.8; O2SAT 98–100
== END 2021-05-11 10:00 | disposition home or self-care (01) ==
LOC: INF 07:41
PROVIDERS: PCP Family Medicine; Visit Provider Family Medicine
DX: U07.1 COVID-19 (principal); Z23 Encounter for immunization
CPT/HCPCS: 96365

== ENCOUNTER → 2021-05-18 15:27 | Outpatient (CLI) | payer OTHER, SELFPAY ==
--- NOTE | 2021-05-18 15:34 | XR_ITS ---
PROCEDURE: XR CHEST PORTABLE CLINICAL HISTORY: COVID OUTPATIENT COMPARISON: No exams were available for comparison FINDINGS: The cardiomediastinal silhouette and pulmonary vascularity are within normal limits. The lungs are clear without infiltrates, suspicious nodules, or pleural effusions. No acute bony abnormalities. IMPRESSION: No acute findings. Dictated by: Darrin Gonsales MD 05/19/2021 07:45 Darrin Gonsales MD in [place] 05/19/2021 07:45
== END ==
PROVIDERS: PCP Physician Assistant; Visit Provider Physician Assistant
DX: U07.1 COVID-19 (principal); R05.9 Cough, unspecified
CPT/HCPCS: 71045

== ENCOUNTER 2021-06-27 09:33 | Emergency (ER) | payer OTHER, SELFPAY ==
[2021-06-27 10:30] VITALS: BP 122/79; PULSE 91; RESP 19; TEMP 36.6; O2SAT 100; BMI 35.2
[2021-06-27 10:40] LABS: UTC Strep Screen (Rapid) Negative (Negative)
[2021-06-27 10:41] LABS: UTC Influenza A Antigen Negative (Negative); UTC Influenza B Antigen Negative (Negative)
--- NOTE | 2021-06-27 10:54 | HMH.EDUTC ---
[facility] [place] Disposition Clinical Impression: Sinusitis Qualifiers: Sinusitis location: maxillary Chronicity: acute Recurrence: non-recurrent Qualified Code(s): J01.00 - Acute maxillary sinusitis, unspecified Disposition: Home, Self-Care Condition on Discharge: Good Instructions: DI for Sinusitis Additional Instructions: Start antibiotic patient to take as ordered for a full length of time even if you feel better. Sinus infections do not get better overnight. It may take 2-3 days to notice much improvement so be sure to use conservative measures as discussed for symptoms. Increase fluids Humidifier/vaporizer as needed Tylenol and ibuprofen as needed for fever or pain. If symptoms do not improve or get worse return or be seen in the ER Follow-up with primary care this week Prescriptions: predniSONE [Prednisone 20mg Tab] 20 mg PO BID #10 tab Prescription Printed Azithromycin [Zithromax 250mg tab] 250 mg PO DIRECTED #6 tab Prescription Printed Referrals: Narinder Dior MD [Primary Care Provider] - Time of Disposition: 10:57 Medical Decision Making - Ray Inquiry Pt receiving controlled substance: No - Lab Data Lab Results 06/27/21 10:25: Influenza Type A Ag Negative, Influenza Type B Ag Negative 06/27/21 10:25: Strep Scn Rapid Clinic Negative Orders (Tests/Meds): ORDERS Category Date Time Status Strep Screen Confirmation Stat Micro 06/27/21 10:25 Received [facility] [place] HPI - General Chief complaint: Urgent Treatment Center Stated complaint: sore throat, cough, h/a, congestion Time Seen by Provider: 06/27/21 10:54 Mode of Arrival: Ambulatory Source of Information: Patient Limitations: No Limitations - History of Present Illness Provider Complaint: 35 yr old female presents for cough, green nasal congestion, sore throat and sinus pressure since monday - Related Data Home Medications Medication Instructions Recorded Confirmed Adalimumab [Humira] 40 mg SQ WEEKLY 09/21/19 12/18/19 Tizanidine HCl [Tizanidine HCl 4 mg PO HSP PRN 09/21/19 12/19/19 2mg] Propranolol HCl [Inderal Xl] 80 mg PO BID 12/18/19 12/18/19 Venlafaxine HCl [Effexor Xr] 75 mg PO DAILY 12/18/19 12/18/19 Cetirizine HCl 10 mg PO DAILY 12/19/19 12/19/19 Etodolac [Etodolac 400mg Tab] 400 mg PO TIDP PRN 12/19/19 12/19/19 Fluticasone Propionate [Flonase 1 spr NS DAILY 12/19/19 12/19/19 50mcg nasal spray 16gm] Previous Rx's Medication Instructions Recorded Buspirone HCl [Buspar 10mg 10 mg PO BID tab 12/20/19 tablet] Buspirone HCl [Buspar 10mg 10 mg PO BID #60 tab 12/20/19 tablet] Azithromycin [Z-Kang 250mg Tab] 250 mg PO DIRECTED #6 tab 07/03/20 methylPREDNISolone [Medrol 4mg 4 mg PO DIRECTED #21 tab 07/03/20 tab] Azithromycin [Zithromax 250mg 250 mg PO DIRECTED #6 tab 06/27/21 tab] predniSONE [Prednisone 20mg 20 mg PO BID #10 tab 06/27/21 Tab] Allergies Allergy/AdvReac Type Severity Reaction Status Date / Time cefaclor [From CECLOR] Allergy Unknown Unknown Verified 03/13/20 09:24 allergy reaction metoclopramide [From REGLAN] Allergy Unknown Unknown Verified 03/13/20 09:24 allergy reaction sulfamethoxazole Allergy Unknown Unknown Verified 03/13/20 09:24 [From BACTRIM] allergy reaction trimethoprim [From BACTRIM] Allergy Unknown Unknown Verified 03/13/20 09:24 allergy reaction [facility] History - Hepatitis A Screen Attestation statement:: This patient has been screened for Hepatitis A risk factors. I have reviewed the patient's past medical history: Yes Medical History: Reports:: Anxiety, Depression, Hyperlipidemia, Hypertension Denies:: Cancer, Diabetes Mellitus Type 1, Diabetes Mellitus Type 2, MRSA Other Medical History: Reports: Arthritis Comment: Endometriosis Other Surgeries: Yes: Cholecystectomy, Dilation and Curettage, Hysterectomy-Partial, Tubal Ligation, Other Amputation: No Fractures: No - Social H
[2021-06-27 11:09] VITALS: BP 122/79; PULSE 91; RESP 19; TEMP 36.6; O2SAT 100
== END 2021-06-27 11:17 | disposition home or self-care (01) ==
PROVIDERS: Emergency Provider Nurse Practitioner Family; PCP Family Medicine
DX: J01.00 Acute maxillary sinusitis, unspecified (principal); F41.8 Other specified anxiety disorders; F17.210 Nicotine dependence, cigarettes, uncomplicated
CPT/HCPCS: 87804; 87880; 99203; G0463

== ENCOUNTER → 2021-07-14 08:15 | Outpatient (CLI) | payer OTHER, SELFPAY ==
[2021-07-14 08:52] LABS: Coronavirus 19, PCR Not Detected (NotDetected); Influenza A, PCR Not Detected (NotDetected); Influenza B, PCR Not Detected (NotDetected)
== END ==
PROVIDERS: PCP Family Medicine; Visit Provider Family Medicine
DX: Z20.822 Contact with and (suspected) exposure to COVID-19 (principal)
CPT/HCPCS: C9803; U0003; U0005

== ENCOUNTER 2021-07-15 09:41 | Emergency (ER) | payer OTHER, SELFPAY ==
[2021-07-15 09:42] VITALS: BP 151/101; PULSE 97; RESP 18; TEMP 36.9; O2SAT 100; BMI 34.7
--- NOTE | 2021-07-15 09:54 | XR_ITS ---
FINAL REPORT CLINICAL HISTORY: left sided chest pain on inspiration former smoker pt just started to vape x 2 months ago hysterectomy FINDINGS: Two views of the chest were obtained. The heart size and pulmonary vascularity are within normal limits. The mediastinum is normal. No acute pulmonary abnormality is identified. There is no pneumothorax. The bony thorax is intact. IMPRESSION: No active cardiopulmonary disease. Reviewed, Interpreted and Dictated by Travon Aguilar III, MD Transcribed by Marika Chan Authenticated by Travon Aguilar III, MD on 07/15/2021 11:21:[address] [facility]
--- NOTE | 2021-07-15 09:54 | HMH.EDGENADL ---
ED Disposition Clinical Impression: Elevated blood pressure reading Dyspnea Qualifiers: Dyspnea type: unspecified Qualified Code(s): R06.00 - Dyspnea, unspecified Disposition: Home, Self-Care Condition on Discharge: Good Instructions: DI for Shortness of Breath, How to Monitor Your Blood Pressure at Home Additional Instructions: follow up pcp return for worse Prescriptions: Albuterol Sulfate [Proventil-HFA 90mcg/puff Inh] 1 - 2 puffs IH Q4HP PRN #1 each PRN Reason: Shortness Of Breath Or Wheezing Transmission Status: Pending to [facility] #[id number] Referrals: Narinder Dior MD [Primary Care Provider] - - Critical Care Critical Care Time: No Attestation: On 07/15/21, the high probability of a clinically significant, sudden or life threatening deterioration of the following system(s) required my full and direct attention, intervention and personal management. The time I documented below is in addition to time spent performing reported procedures but includes the following listed in this critical care notation. Medical Decision Making - Ray Inquiry Pt receiving controlled substance: No Vital Signs: 07/15/21 09:42 Temperature 98.4 F Temperature Source Oral Pulse Rate [Right Radial] 97 H Respiratory Rate 18 Blood Pressure [Right Arm] 151/101 H Blood Pressure Mean [Right Arm] 117 Blood Pressure Source [Right Arm] Automatic Cuff Blood Pressure Position [Right Arm] Sitting 02 Sat by Pulse Oximetry 100 Oxygen Delivery Method Room Air Orders (Tests/Meds): ORDERS Category Date Time Status Chest XR 2 view (NOT portable) [XR chest 2V] Stat Exams 07/15/21 09:54 Taken ECG Request by /Estefani Stat Y 07/15/21 09:54 Ordered - ECG Data Tracing #1 ekg by me nsr, irbbb, no st elev Medical Decision Narrative: pain seems to be localized and reprodicible, no nausea/dizzy/diaphoresis/radiation pt says she recently quit smoking and began vaping agreed to plan to try otc meds for pain and albuterol and f/u pcp General Adult HPI - General Stated complaint: SOA Chest pressure Time Seen by Provider: 07/15/21 09:55 - History of Present Illness HPI narrative: left mid localized cp 1 day assoc with soa, pressure, constant Radiation: non-radiation Severity: mild Quality: constant Relieving factors: none Exacerbating factors: other (palpation) Associated symptoms: chest pain, shortness of breath - Related Data Home Medications Medication Instructions Recorded Confirmed Adalimumab [Humira] 40 mg SQ WEEKLY 09/21/19 12/18/19 Tizanidine HCl [Tizanidine HCl 4 mg PO HSP PRN 09/21/19 12/19/19 2mg] Propranolol HCl [Inderal Xl] 80 mg PO BID 12/18/19 12/18/19 Venlafaxine HCl [Effexor Xr] 75 mg PO DAILY 12/18/19 12/18/19 Cetirizine HCl 10 mg PO DAILY 12/19/19 12/19/19 Etodolac [Etodolac 400mg Tab] 400 mg PO TIDP PRN 12/19/19 12/19/19 Fluticasone Propionate [Flonase 1 spr NS DAILY 12/19/19 12/19/19 50mcg nasal spray 16gm] Previous Rx's Medication Instructions Recorded Buspirone HCl [Buspar 10mg 10 mg PO BID tab 12/20/19 tablet] Buspirone HCl [Buspar 10mg 10 mg PO BID #60 tab 12/20/19 tablet] Azithromycin [Z-Kang 250mg Tab] 250 mg PO DIRECTED #6 tab 07/03/20 methylPREDNISolone [Medrol 4mg 4 mg PO DIRECTED #21 tab 07/03/20 tab] Azithromycin [Zithromax 250mg 250 mg PO DIRECTED #6 tab 06/27/21 tab] predniSONE [Prednisone 20mg 20 mg PO BID #10 tab 06/27/21 Tab] Albuterol Sulfate [Proventil-HFA 1 - 2 puffs IH Q4HP PRN #1 each 07/15/21 90mcg/puff Inh] Allergies Allergy/AdvReac Type Severity Reaction Status Date / Time cefaclor [From CECLOR] Allergy Unknown Unknown Verified 03/13/20 09:24 allergy reaction metoclopramide [From REGLAN] Allergy Unknown Unknown Verified 03/13/20 09:24 allergy reaction sulfamethoxazole Allergy Unknown Unknown Verified 03/13/20 09:24 [From BACTRIM] allergy reaction
--- NOTE | 2021-07-15 09:56 | PC.NURSE ---
Notified Rad of CXR order
[2021-07-15 10:30] VITALS: BP 133/94; PULSE 65; RESP 16; TEMP 36.6; O2SAT 98
--- NOTE | 2021-07-15 10:31 | ECG_ITS ---
APPROVED REPORT Exam: Resting ECG HR:90 bpm ECG Measurements Heart Rate 90 AXES MI 176 P 37 QRSd 102 QRS 18 QT 372 T 20 QTc 455 Conclusion Normal sinus rhythm Incomplete right bundle branch block Borderline ECG Electronically signed by : Giovani Webster MD 07/16/2021 17:34:44
[2021-07-15 10:50] VITALS: BP 133/94; PULSE 87; RESP 15; TEMP 36.6; O2SAT 100
[2021-07-15 10:58] VITALS: BP 128/65; PULSE 68; RESP 16; TEMP 36.6; O2SAT 98
== END 2021-07-15 10:59 | disposition home or self-care (01) ==
PROVIDERS: Emergency Provider Emergency Medicine; PCP Family Medicine
DX: R06.00 Dyspnea, unspecified (principal); I16.1 Hypertensive emergency; F41.8 Other specified anxiety disorders; E78.5 Hyperlipidemia, unspecified
CPT/HCPCS: 71046; 93005; 99282

== ENCOUNTER → 2021-07-16 09:54 | Outpatient (CLI) | payer OTHER, SELFPAY ==
[2021-07-16 15:36] LABS: Adenovirus,PCR Not Detected (NotDetected); Bordetella Pertussis Not Detected (NotDetected); Chlamydophila Pneumoniae, PCR Not Detected (NotDetected); Coronavirus 19, PCR Not Detected (NotDetected); Coronavirus 229E Not Detected (NotDetected); Coronavirus NL63 Not Detected (NotDetected); Coronavirus OC43 Not Detected (NotDetected); Coronovirus HKU1,PCR Not Detected (NotDetected); Human Metapneumovirus Not Detected (NotDetected); Influenza A, PCR Not Detected (NotDetected); Influenza AH1, 2009 Not Detected (NotDetected); Influenza AH1, PCR Not Detected (NotDetected); Influenza AH3,PCR Not Detected (NotDetected); Influenza B, PCR Not Detected (NotDetected); Mycoplasma Pneumoniae, PCR Not Detected (NotDetected); Parainfluenza 1, PCR Not Detected (NotDetected); Parainfluenza 2, PCR Not Detected (NotDetected); Parainfluenza 3, PCR Not Detected (NotDetected); Parainfluenza 4, PCR Not Detected (NotDetected); Respiratory Syncytial Virus Not Detected (NotDetected)
[2021-07-16 15:39] LABS: Basophils # 0.1 K/mm3 (0-0.2); Eosinophils # 0.2 K/mm3 (0.0-0.4); Eosinophils % 3.5 % (0.1-12.0); Hemoglobin 13.4 g/dL (12.2-16.2); Lymphocytes # 1.7 K/mm3 (0.7-4.5); Lymphocytes % 29.7 % (10-50); Mean Corpuscular HGB Conc 32.7 g/dL (31.8-35.4); Mean Corpuscular Hemoglobin 29.9 pg (27.0-31.2); Mean Corpuscular Volume 91.4 fl (81-99); Monocytes # 0.3 K/mm3 (0.1-1.0); Monocytes % 5.9 % (1.7-9.3); Neutrophils # 3.4 K/mm3 (1.8-7.8); Platelet Count 295 K/mm3 (142-424); Red Blood Count 4.48 M/mm3 (4.20-5.40); Red Cell Distribution Width 12.7 % (11.5-17.5); White Blood Count 5.7 K/mm3 (4.8-10.8)
[2021-07-16 18:13] LABS: Rhinovirus/Enterovirus Detected (NotDetected)
== END ==
PROVIDERS: PCP Family Medicine; Visit Provider Physician Assistant
DX: Z20.822 Contact with and (suspected) exposure to COVID-19 (principal); B34.1 Enterovirus infection, unspecified
CPT/HCPCS: 85025; 87581; 87632; 87798; C9803; U0003; U0005

== ENCOUNTER → 2021-08-03 10:14 | Outpatient (CLI) | payer OTHER, SELFPAY ==
[2021-08-03 10:52] LABS: Basophils % 0.8 % (0.1-2.0); Eosinophils # 0.1 K/mm3 (0.0-0.4); Eosinophils % 2.1 % (0.1-12.0); Hematocrit 42.5 % (37.0-47.0); Lymphocytes # 1.8 K/mm3 (0.7-4.5); Mean Corpuscular Hemoglobin 29.9 pg (27.0-31.2); Mean Corpuscular Volume 90.9 fl (81-99); Mean Platelet Volume 7.5 fl (7.4-10.4); Monocytes # 0.3 K/mm3 (0.1-1.0); Neutrophils # 3.4 K/mm3 (1.8-7.8); Neutrophils % 60.1 % (37.0-80.0); Platelet Count 275 K/mm3 (142-424); Red Blood Count 4.68 M/mm3 (4.20-5.40); Red Cell Distribution Width 12.8 % (11.5-17.5); White Blood Count 5.7 K/mm3 (4.8-10.8)
[2021-08-03 11:20] LABS: Adenovirus,PCR Not Detected (NotDetected); Bordetella Pertussis Not Detected (NotDetected); Chlamydophila Pneumoniae, PCR Not Detected (NotDetected); Coronavirus 229E Not Detected (NotDetected); Coronavirus NL63 Not Detected (NotDetected); Coronavirus OC43 Not Detected (NotDetected); Coronovirus HKU1,PCR Not Detected (NotDetected); Human Metapneumovirus Not Detected (NotDetected); Influenza A, PCR Not Detected (NotDetected); Influenza AH1, 2009 Not Detected (NotDetected); Influenza AH1, PCR Not Detected (NotDetected); Influenza AH3,PCR Not Detected (NotDetected); Influenza B, PCR Not Detected (NotDetected); Mycoplasma Pneumoniae, PCR Not Detected (NotDetected); Parainfluenza 1, PCR Not Detected (NotDetected); Parainfluenza 2, PCR Not Detected (NotDetected); Parainfluenza 3, PCR Not Detected (NotDetected); Parainfluenza 4, PCR Not Detected (NotDetected); Respiratory Syncytial Virus Not Detected (NotDetected); Rhinovirus/Enterovirus Not Detected (NotDetected)
== END ==
PROVIDERS: PCP Family Medicine; Visit Provider Physician Assistant
DX: Z20.822 Contact with and (suspected) exposure to COVID-19 (principal)
CPT/HCPCS: 36415; 85025; 87486; 87581; 87632; 87798; C9803; U0003; U0005

== ENCOUNTER → 2021-11-06 09:03 | Outpatient (CLI) | payer OTHER, SELFPAY ==
[2021-11-06 09:50] LABS: Adenovirus,PCR Not Detected (NotDetected); Bordetella Pertussis Not Detected (NotDetected); Chlamydophila Pneumoniae, PCR Not Detected (NotDetected); Coronavirus 19, PCR Not Detected (NotDetected); Coronavirus NL63 Not Detected (NotDetected); Coronavirus OC43 Not Detected (NotDetected); Coronovirus HKU1,PCR Not Detected (NotDetected); Human Metapneumovirus Not Detected (NotDetected); Influenza A, PCR Not Detected (NotDetected); Influenza AH1, 2009 Not Detected (NotDetected); Influenza AH1, PCR Not Detected (NotDetected); Influenza AH3,PCR Not Detected (NotDetected); Influenza B, PCR Not Detected (NotDetected); Mycoplasma Pneumoniae, PCR Not Detected (NotDetected); Parainfluenza 1, PCR Not Detected (NotDetected); Parainfluenza 2, PCR Not Detected (NotDetected); Parainfluenza 3, PCR Not Detected (NotDetected); Parainfluenza 4, PCR Not Detected (NotDetected); Respiratory Syncytial Virus Not Detected (NotDetected); Rhinovirus/Enterovirus Not Detected (NotDetected)
[2021-11-06 09:58] LABS: Basophils # 0.1 K/mm3 (0-0.2); Basophils % 1.7 % (0.1-2.0); Eosinophils # 0.1 K/mm3 (0.0-0.4); Eosinophils % 2.7 % (0.1-12.0); Hematocrit 43.4 % (37.0-47.0); Hemoglobin 14.2 g/dL (12.2-16.2); Lymphocytes # 1.1 K/mm3 (0.7-4.5); Lymphocytes % 21.7 % (10-50); Mean Corpuscular HGB Conc 32.8 g/dL (31.8-35.4); Mean Corpuscular Hemoglobin 29.6 pg (27.0-31.2); Mean Corpuscular Volume 90.3 fl (81-99); Mean Platelet Volume 7.5 fl (7.4-10.4); Monocytes # 0.4 K/mm3 (0.1-1.0); Monocytes % 7.7 % (1.7-9.3); Neutrophils # 3.4 K/mm3 (1.8-7.8); Neutrophils % 66.2 % (37.0-80.0); Platelet Count 263 K/mm3 (142-424); Red Blood Count 4.81 M/mm3 (4.20-5.40); Red Cell Distribution Width 12.6 % (11.5-17.5); White Blood Count 5.2 K/mm3 (4.8-10.8)
[2021-11-06 11:51] LABS: Coronavirus 229E Detected (NotDetected)
== END ==
PROVIDERS: PCP Family Medicine; Visit Provider Family Medicine
DX: U07.1 COVID-19 (principal)
CPT/HCPCS: 36415; 85025; 87581; 87632; 87798; C9803; U0003; U0005

== ENCOUNTER → 2022-02-09 10:35 | Outpatient (CLI) | payer OTHER, SELFPAY ==
--- NOTE | 2022-02-09 10:42 | US_ITS ---
FINAL REPORT CLINICAL HISTORY: THYROMEGALY FINDINGS: THYROID ULTRASOUND Sonographic images of the thyroid was obtained. The right lobe of the thyroid measures 4.3 x 1.8 x 1.7 cm. The left lobe of the thyroid measures 4.4 x 1.8 x 1.6 cm. The isthmus measures 4 mm. The thyroid is mildly enlarged. IMPRESSION: Mildly enlarged thyroid which may represent thyroiditis or goiter. Reviewed, Interpreted and Dictated by Travon Aguilar III, MD Transcribed by Marika Chan Authenticated and [facility]
== END ==
PROVIDERS: PCP Family Medicine; Visit Provider Family Medicine
DX: E04.9 Nontoxic goiter, unspecified (principal)
CPT/HCPCS: 76536

== ENCOUNTER 2022-02-22 16:07 | Emergency (ER) | payer OTHER, SELFPAY ==
--- NOTE | 2022-02-22 16:54 | HMH.EDUTC ---
[facility] [place] Clinical Impression: COVID-19 Disposition: Home, Self-Care Condition on Discharge: Good Instructions: Preventing the Spread of Coronavirus Discharge Instructions, DI for COVID-19 (Suspected or Confirmed ) Additional Instructions: Drink plenty of fluids. Take tylenol or ibuprofen for pain or fever. Take the medications as directed. Follow up with your regular doctor. GO TO THE ER FOR ANY WORSENING SYMPTOMS The cough medication (promethazine dm) will make you drowsy, so don't drive or operate heavy machinery after taking it. Prescriptions: Promethazine/Dextromethorphan [Promethazine-Dm Syrup] 5 ml PO Q6HP PRN #240 ml PRN Reason: Cough Transmission Status: Pending to [facility] # methylPREDNISolone [Medrol] 4 mg PO DIRECTED 6 Days #21 packet Transmission Status: Pending to [facility] # Nirmatrelvir/Ritonavir [Paxlovid 2X150 mg-100 mg (Eua)] 1 packet PO DIRECTED 5 Days #1 packet Transmission Status: Pending to [facility] # Referrals: Narinder Dior MD [Primary Care Provider] - Time of Disposition: 17:14 Medical Decision Making - Medical Records Medical records reviewed: No: I reviewed the patient's medical records. - Ray Inquiry Pt receiving controlled substance: No [facility] [place] - General Stated complaint: covid+ Pain in ribs and back Time Seen by Provider: 02/22/22 16:54 - History of Present Illness Provider Complaint: She started feeling bad 2 days ago. Both her daughters tested positive for covid-19 then. So, yesterday she tested positive on a covid-19 home test. She is here today because she is having bilateral thoracic back pain when she breathes deep or coughs. She denies any shortness of breath. She denies nausea/vomiting/diarrhea. - Related Data Home Medications Medication Instructions Recorded Confirmed RX: Adalimumab [Humira] 40 mg SQ WEEKLY 09/21/19 12/18/19 RX: Tizanidine HCl [Tizanidine HCl 4 mg PO HSP PRN 09/21/19 12/19/19 2mg] RX: Propranolol HCl [Inderal Xl] 80 mg PO BID 12/18/19 12/18/19 RX: Venlafaxine HCl [Effexor Xr] 75 mg PO DAILY 12/18/19 12/18/19 RX: Cetirizine HCl 10 mg PO DAILY 12/19/19 12/19/19 RX: Etodolac [Etodolac 400mg Tab] 400 mg PO TIDP PRN 12/19/19 12/19/19 RX: Fluticasone Propionate 1 spr NS DAILY 12/19/19 12/19/19 [Flonase 50mcg nasal spray 16gm] Previous Rx's Medication Instructions Recorded Buspirone HCl [Buspar 10mg 10 mg PO BID #60 tab 12/20/19 tablet] RX: Buspirone HCl [Buspar 10mg 10 mg PO BID tab 12/20/19 tablet] RX: Azithromycin [Z-Kang 250mg 250 mg PO DIRECTED #6 tab 07/03/20 Tab] methylPREDNISolone [Medrol 4mg 4 mg PO DIRECTED #21 tab 07/03/20 tab] Azithromycin [Zithromax 250mg 250 mg PO DIRECTED #6 tab 06/27/21 tab] predniSONE [Prednisone 20mg 20 mg PO BID #10 tab 06/27/21 Tab] RX: Albuterol Sulfate 1 - 2 puffs IH Q4HP PRN #1 each 07/15/21 [Proventil-HFA 90mcg/puff Inh] Nirmatrelvir/Ritonavir [Paxlovid 1 packet PO DIRECTED 5 Days #1 02/22/22 2X150 mg-100 mg (Eua)] packet Promethazine/Dextromethorphan 5 ml PO Q6HP PRN #240 ml 02/22/22 [Promethazine-Dm Syrup] methylPREDNISolone [Medrol] 4 mg PO DIRECTED 6 Days #21 02/22/22 packet Allergies Allergy/AdvReac Type Severity Reaction Status Date / Time cefaclor [From CECLOR] Allergy Unknown Unknown Verified 03/13/20 09:24 allergy reaction metoclopramide [From REGLAN] Allergy Unknown Unknown Verified 03/13/20 09:24 allergy reaction sulfamethoxazole Allergy Unknown Unknown Verified 03/13/20 09:24 [From BACTRIM] allergy reaction trimethoprim [From BACTRIM] Allergy Unknown Unknown Verified 03/13/20 09:24 allergy reaction [facility] History - Hepatitis A Screen Attestation statement:: This patient has been screened for Hepatitis A risk factors. I have reviewed the patient's past medical history: Yes M
[2022-02-22 17:20] VITALS: BP 116/83; PULSE 116; RESP 18; TEMP 37.1; O2SAT 96; BMI 34.5
[2022-02-22 17:33] VITALS: BP 116/83; PULSE 116; RESP 18; TEMP 36.7
== END 2022-02-22 17:33 | disposition home or self-care (01) ==
PROVIDERS: Emergency Provider Nurse Practitioner Family; PCP Family Medicine
DX: U07.1 COVID-19 (principal)
CPT/HCPCS: 99212; G0463

== ENCOUNTER → 2022-04-01 14:04 | Outpatient (CLI) | payer OTHER, SELFPAY ==
--- NOTE | 2022-04-01 14:07 | MM_ITS ---
PROCEDURE INFORMATION: Exam: US Right Breast, Complete MG Bilateral Diagnostic Breast Tomosynthesis Exam date and time: 04/01/2022 2:06 PM Age: 36 years old Clinical indication: Right breast pain; Right breast palpable lump; Abnormal breast exam by sarthak, palp lump right breast, bilateral done due to family HX breast cancer TECHNIQUE: Imaging protocol: Complete ultrasound of all four quadrants of the Right breast and the retroareolar regions, including ultrasound of the axilla when performed. Bilateral Diagnostic tomosynthesis and 2D mammography including computer-aided detection (CAD) when performed. Unilateral or bilateral exam. COMPARISON: No relevant prior studies available. FINDINGS: MAMMOGRAPHY: The breast is heterogeneously dense, which may obscure small masses. No mass, architectural distortion, or suspicious calcifications is present to suggest malignancy. No axillary adenopathy. ULTRASOUND: Complete ultrasound of the entire right breast was performed There is a ill-defined hypoechoic horizontal circumscribed 0.8 x 0.4 x 1.0 cm structure along the right 10 o'clock axis 7 cm from the nipple. This has generally benign features highly suggestive of a fat lobule or possibly near isodense fibroadenoma. No suspicious solid or cystic mass is present. No architectural distortion or shadowing is present. No axillary adenopathy is present. IMPRESSION: I suspect an incidentally discovered mammographically occult 1 cm right 10 o'clock benign structures such as fibroadenoma or possibly fat lobule. No suspicious solid or cystic mass is present within the right breast Six-month follow-up targeted right breast ultrasound is recommended to assess stability ASSESSMENT: BI-RADS category 3: Probably benign
== END ==
PROVIDERS: PCP Family Medicine; Visit Provider Nurse Practitioner Family
DX: N64.59 Other signs and symptoms in breast (principal)
CPT/HCPCS: 76641; 77062; 77066; G0279

== ENCOUNTER → 2022-05-13 12:27 | Outpatient (CLI) | payer OTHER, SELFPAY ==
[2022-05-13 12:44] LABS: Adenovirus,PCR Not Detected (NotDetected); Bordetella Pertussis Not Detected (NotDetected); Chlamydophila Pneumoniae, PCR Not Detected (NotDetected); Coronavirus 19, PCR Not Detected (NotDetected); Coronavirus 229E Not Detected (NotDetected); Coronavirus NL63 Not Detected (NotDetected); Coronavirus OC43 Not Detected (NotDetected); Coronovirus HKU1,PCR Not Detected (NotDetected); Human Metapneumovirus Not Detected (NotDetected); Influenza A, PCR Not Detected (NotDetected); Influenza AH1, 2009 Not Detected (NotDetected); Influenza AH1, PCR Not Detected (NotDetected); Influenza AH3,PCR Not Detected (NotDetected); Influenza B, PCR Not Detected (NotDetected); Mycoplasma Pneumoniae, PCR Not Detected (NotDetected); Parainfluenza 1, PCR Not Detected (NotDetected); Parainfluenza 2, PCR Not Detected (NotDetected); Parainfluenza 3, PCR Not Detected (NotDetected); Parainfluenza 4, PCR Not Detected (NotDetected); Respiratory Syncytial Virus Not Detected (NotDetected); Rhinovirus/Enterovirus Not Detected (NotDetected)
[2022-05-13 12:48] LABS: Basophils # 0.1 K/mm3 (0-0.2); Basophils % 0.8 % (0.1-2.0); Eosinophils # 0.1 K/mm3 (0.0-0.4); Eosinophils % 1.6 % (0.1-12.0); Hematocrit 42.2 % (37.0-47.0); Hemoglobin 13.8 g/dL (12.2-16.2); Lymphocytes # 2.2 K/mm3 (0.7-4.5); Lymphocytes % 27.5 % (10-50); Mean Corpuscular HGB Conc 32.7 g/dL (31.8-35.4); Mean Corpuscular Hemoglobin 29.3 pg (27.0-31.2); Mean Corpuscular Volume 89.6 fl (81-99); Mean Platelet Volume 7.2 fl (7.4-10.4); Monocytes # 0.5 K/mm3 (0.1-1.0); Monocytes % 5.8 % (1.7-9.3); Neutrophils % 64.4 % (37.0-80.0); Platelet Count 323 K/mm3 (142-424); Red Blood Count 4.71 M/mm3 (4.20-5.40); Red Cell Distribution Width 12.9 % (11.5-17.5); White Blood Count 7.8 K/mm3 (4.8-10.8)
== END ==
PROVIDERS: PCP Physician Assistant; Visit Provider Physician Assistant
DX: Z20.822 Contact with and (suspected) exposure to COVID-19 (principal)
CPT/HCPCS: 36415; 85025; 87581; 87632; 87798; C9803; U0003; U0005

== ENCOUNTER → 2022-07-12 09:00 | Outpatient (CLI) | payer OTHER, SELFPAY | PROVIDERS: PCP Family Medicine; Visit Provider Nurse Practitioner Family | DX: U07.1 COVID-19 (principal) | CPT/HCPCS: C9803; U0003; U0005 ==

== ENCOUNTER → 2022-07-19 16:54 | Outpatient (CLI) | payer OTHER, SELFPAY ==
--- NOTE | 2022-07-19 17:09 | XR_ITS ---
FINAL REPORT CLINICAL HISTORY: BRONCHITIS COMPARISON: 07/15/2021 FINDINGS: PA and lateral views of the chest are obtained. There is no prior exam for comparison. The cardiac and mediastinal silhouettes are within normal limits. The lungs are clear. There is no pleural effusion, pneumothorax, or acute osseous abnormality. IMPRESSION: No radiographic evidence of acute cardiac or pulmonary disease. Reviewed, Interpreted and Dictated by Alondra Smith MD Transcribed by Marycarmen Mckenzie Authenticated and [facility]
== END ==
PROVIDERS: PCP Nurse Practitioner Family; Visit Provider Nurse Practitioner Family
DX: J40 Bronchitis, not specified as acute or chronic (principal)
CPT/HCPCS: 71046

== ENCOUNTER 2022-11-13 10:23 | Emergency (ER) | payer OTHER, SELFPAY ==
[2022-11-13 10:30] VITALS: BP 142/87; PULSE 115; RESP 22; TEMP 37.1; O2SAT 99; BMI 35.5
[2022-11-13 10:49] LABS: UTC Influenza A Antigen Negative (Negative); UTC Influenza B Antigen Negative (Negative); UTC Strep Screen (Rapid) Negative (Negative)
[2022-11-13 10:53] VITALS: BP 142/87; PULSE 115; RESP 22; TEMP 37.1; O2SAT 99
--- NOTE | 2022-11-13 11:02 | EXP.UTC ---
Discharge Plan Disposition Patient Disposition: Home, Self-Care Condition: Good Prescriptions Prescriptions: New benzonatate 100 mg capsule 100 mg PO TID PRN (Reason: cough) Qty: 30 0RF fluticasone propionate [Flonase Allergy Relief] 50 mcg/actuation spray,suspension 1 - 2 spray intranasal DAILY Qty: 16 0RF Rx Instructions: administer into each nostril methylprednisolone [Medrol (Kang)] 4 mg tablets,dose pack See Rx Instructions .Route .COMPLEX 6 Days Qty: 21 0RF Rx Instructions: taper pack; No Action venlafaxine 150 mg capsule,extended release 24hr 150 mg PO DAILY Label Comments: TAKE ONE CAPSULE BY MOUTH EVERY DAY leflunomide 20 mg tablet 20 mg PO DAILY Label Comments: TAKE ONE TABLET BY MOUTH EVERY DAY IN THE MORNING meloxicam 7.5 mg tablet 7.5 mg PO DAILY Label Comments: TAKE ONE TABLET BY MOUTH EVERY DAY IN THE MORNING --TAKE WITH FOOD-- duloxetine 60 mg capsule,delayed release(DR/EC) 60 mg PO DAILY Label Comments: TAKE ONE CAPSULE BY MOUTH EVERY DAY Linzess 72 mcg capsule 72 mcg PO DAILY Label Comments: TAKE ONE CAPSULE BY MOUTH EVERY DAY Referrals Follow up/Referrals: Narinder Dior MD [Primary Care Provider] - See instructions Activity Restrictions/Add. Instructions Additional Instructions/Restrictions: *Monitor Temp, Over the counter Motrin or Tylenol as directed/as needed Tylenol every 4 hours and Motrin every 6 hours (as long as your family doctor has told you that you can take it) for fever or pain. and straight to ER if unable to lower temp less than 101.0 after medication given *Warm salt water gargles may help to soothe the throat *Throat Lozenges? *Warm fluids like tea with honey may help to soothe the throat? *Sleep elevated *Humidifier/Vaporizer *Flonase 2 sprays in each nostril daily but be aware that it may take 2-3 days before you notice improvement *Bromfed may cause drowsiness. Know how it effects you (your child) before driving, caring for small child, or sending your child to school. Not other antihistamines/allergy medications while taking bromfed Your throat swab was sent for culture. Those results are typically sent to your primary care. Be sure to follow up in 2-3 days with your family doctor/primary care physician if no improvement so they can review those result and treat if necessary. If you don?t have a primary care doctor, I recommend you get one but in the mean time, you will have to return to a walk in clinic Follow up IMMEDIATELY for new or worsening symptoms or no Noticeable improvement over the next 48-72 hours. 911 for difficulty breathing or swallowing You were tested for today for Upper Respiratory Panel with COVID19 your test result should be back in the next 24-48 hours, you may check your results on the [facility] Clinical Impressions Clinical Impression: Viral upper respiratory infection Instructions Patient Instructions: Cough, DI for Viral Upper Respiratory Infection -- Adult, DI for Fever (Symptom) -- Adult Discharge ED Provider: Sisi Platt [facility] [place] HPI General Stated complaint: Cough congestion bodyaches fever Mode of Arrival: Ambulatory Source of Information: Patient Limitations: No Limitations Time Seen by Provider: 11/13/22 11:05 Description of Symptoms (Recalled from Triage Doc. 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
[2022-11-13 11:28] LABS: Adenovirus,PCR Not Detected (NotDetected); Bordetella Pertussis Not Detected (NotDetected); Chlamydophila Pneumoniae, PCR Not Detected (NotDetected); Coronavirus 19, PCR Not Detected (NotDetected); Coronavirus 229E Not Detected (NotDetected); Coronavirus NL63 Not Detected (NotDetected); Coronavirus OC43 Not Detected (NotDetected); Coronovirus HKU1,PCR Not Detected (NotDetected); Human Metapneumovirus Not Detected (NotDetected); Influenza A, PCR Not Detected (NotDetected); Influenza AH1, 2009 Not Detected (NotDetected); Influenza AH1, PCR Not Detected (NotDetected); Influenza AH3,PCR Not Detected (NotDetected); Influenza B, PCR Not Detected (NotDetected); Mycoplasma Pneumoniae, PCR Not Detected (NotDetected); Parainfluenza 1, PCR Not Detected (NotDetected); Parainfluenza 2, PCR Not Detected (NotDetected); Parainfluenza 3, PCR Not Detected (NotDetected); Parainfluenza 4, PCR Not Detected (NotDetected); Respiratory Syncytial Virus Not Detected (NotDetected)
[2022-11-13 13:37] LABS: Rhinovirus/Enterovirus Detected (NotDetected)
== END 2022-11-13 11:17 | disposition home or self-care (01) ==
PROVIDERS: Emergency Provider Nurse Practitioner; PCP Family Medicine
DX: J06.9 Acute upper respiratory infection, unspecified (principal); B34.1 Enterovirus infection, unspecified; R50.9 Fever, unspecified; R05.9 Cough, unspecified; F17.210 Nicotine dependence, cigarettes, uncomplicated; Z20.822 Contact with and (suspected) exposure to COVID-19
CPT/HCPCS: 87581; 87632; 87635; 87798; 87804; 87880; 99212; 99214; C9803; G0463; U0003; U0005

== ENCOUNTER 2022-12-26 12:14 | Emergency (ER) | payer OTHER, SELFPAY ==
[2022-12-26] VITALS (7 sets, daily range): BP systolic 116–137; BP diastolic 84–101; PULSE 83–100; RESP 16–20; TEMP 36.5–36.7; O2SAT 96–100; BMI 37.1
--- NOTE | 2022-12-26 12:25 | CT_ITS ---
FINAL REPORT CLINICAL HISTORY: RLQ pain COMPARISON: 12/19/2019 FINDINGS: CT OF THE ABDOMEN AND PELVIS WITH CONTRAST Axial CT images of the abdomen and pelvis were obtained after the administration of oral and iv contrast. Coronal reformatted images were also obtained and reviewed.This study was performed with techniques to keep radiation doses as low as reasonably achievable (ALARA). Individualized dose reduction techniques using automated exposure control or adjustment of mA and/or kV according to the patient's size were employed. Abdomen: Mild bibasilar atelectasis. The heart is normal in size. The liver has an unremarkable appearance, without evidence of mass or biliary ductal dilatation. Prior cholecystectomy. The spleen is unremarkable. No adrenal mass is present. The pancreas has an unremarkable appearance. The kidneys are normal, without evidence of mass or hydronephrosis. The aorta is normal in caliber. There is no free fluid or adenopathy. No mass or abnormal fluid collection is seen. Pelvis: The appendix normal. The urinary bladder is unremarkable. No inflammatory process is seen. There is no evidence of mass or adenopathy. There is no evidence of bowel obstruction. Post hysterectomy. IMPRESSION: Mild bibasilar atelectasis. No evidence of acute intra-abdominal process. Reviewed, Interpreted and Dictated by Travon Aguilar III, MD Transcribed by Sona Busby Authenticated and . [facility]
[2022-12-26 12:41] LABS: Basophils % 0.2 % (0.1-2.0); Eosinophils % 0.6 % (0.1-12.0); Hematocrit 43.9 % (37.0-47.0); Hemoglobin 14.1 g/dL (12.2-16.2); Lymphocytes # 0.7 K/mm3 (0.7-4.5); Lymphocytes % 13.1 % (10-50); Mean Corpuscular Hemoglobin 28.1 pg (27.0-31.2); Mean Corpuscular Volume 87.7 fl (81-99); Mean Platelet Volume 7.3 fl (7.4-10.4); Monocytes # 0.2 K/mm3 (0.1-1.0); Monocytes % 4.2 % (1.7-9.3); Neutrophils # 4.2 K/mm3 (1.8-7.8); Neutrophils % 81.8 % (37.0-80.0); Platelet Count 306 K/mm3 (142-424); Red Blood Count 5.01 M/mm3 (4.20-5.40); Red Cell Distribution Width 12.6 % (11.5-17.5); White Blood Count 5.2 K/mm3 (4.8-10.8)
--- NOTE | 2022-12-26 12:54 | HMH.EDGENADL ---
Discharge Plan Disposition Patient Disposition: Home, Self-Care Chief Complaint: Abdominal Pain Prescriptions Prescriptions: No Action venlafaxine 150 mg capsule,extended release 24hr 150 mg PO DAILY Label Comments: TAKE ONE CAPSULE BY MOUTH EVERY DAY leflunomide 20 mg tablet 20 mg PO DAILY Label Comments: TAKE ONE TABLET BY MOUTH EVERY DAY IN THE MORNING meloxicam 7.5 mg tablet 7.5 mg PO DAILY Label Comments: TAKE ONE TABLET BY MOUTH EVERY DAY IN THE MORNING --TAKE WITH FOOD-- duloxetine 60 mg capsule,delayed release(DR/EC) 60 mg PO DAILY Label Comments: TAKE ONE CAPSULE BY MOUTH EVERY DAY Linzess 72 mcg capsule 72 mcg PO DAILY Label Comments: TAKE ONE CAPSULE BY MOUTH EVERY DAY benzonatate 100 mg capsule 100 mg PO TID PRN (Reason: cough) Qty: 30 0RF fluticasone propionate [Flonase Allergy Relief] 50 mcg/actuation spray,suspension 1 - 2 spray intranasal DAILY Qty: 16 0RF Rx Instructions: administer into each nostril methylprednisolone [Medrol (Kang)] 4 mg tablets,dose pack See Rx Instructions .Route .COMPLEX 6 Days Qty: 21 0RF Rx Instructions: taper pack; Referrals Follow up/Referrals: Narinder Dior MD [Primary Care Provider] - See instructions Activity Restrictions/Add. Instructions Additional Instructions/Restrictions: Follow-up with your primary care physician within next few days. Return the emergency department should you have worsening pain vomiting or any other concerns within the next few days Clinical Impressions Clinical Impression: Abdominal pain Instructions Patient Instructions: DI for Acute Abdominal Pain Discharge ED Provider: Loki Riley General Adult HPI General Chief complaint: Abdominal Pain Stated complaint: Abd pain nausea vomiting Time Seen by Provider: 12/26/22 12:15 Mode of Arrival: Ambulatory Source of Information: Patient Limitations: No Limitations Description of Symptoms (Recalled from ER Triage Doc. by RN): 37 yo F presents to ED with c/o RUQ abdominal pain that began last night after eating supper. pt states that she has had associated nausea and vomitting. History of Present Illness HPI narrative: 29-year-old female presents emergency department with abdominal pain. She says the pain began after eating supper last night in the epigastric region she began having worsening pain in the right lower abdomen and right upper abdomen. That happened today. 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 She had associated nausea and vomiting initially. No diarrhea. No bleeding per rectum. No dysuria or hematuria. Related Data Home Medications Medication Instructions Recorded Confirmed duloxetine 60 mg capsule,delayed 60 mg PO DAILY . 11/13/22 11/13/22 release leflunomide 20 mg tablet 20 mg PO DAILY . 11/13/22 11/13/22 linaclotide 72 mcg capsule 72 mcg PO DAILY . 11/13/22 11/13/22 (Linzess) meloxicam 7.5 mg tablet 7.5 mg PO DAILY . 11/13/22 11/13/22 venlafaxine 150 mg 150 mg PO DAILY . 11/13/22 11/13/22 capsule,extended release 24 hr Previous Rx's Medication Instructions Recorded benzonatate 100 mg capsule 100 mg PO TID PRN cough #30 caps 11/13/22 fluticasone propionate 50 1 - 2 spray intranasal DAILY #16 11/13/22 mcg/actuation nasal grams spray,suspension (Flonase Allergy Relief) methylprednisolone 4 mg tablets in See Rx Instructions .Route 11/13/22 a dose pack (Medrol (Kang)) .COMPLEX 6 days #21 tabs Allergies Allergy/AdvReac Type Severity Reaction Status Date / Time cefaclor [From CECLOR] Allergy Unknown Unknown Verified 03/13/20 09:24 allergy reaction metoclopramide [From REGLAN] Allergy Unknown Unknown Verified 03/13/20 09:24 allergy reaction sulfamethoxazole Allergy Unknown Unknown Verified 03/13/20 09:24 [From BACTRIM] allergy
[2022-12-26 13:00] LABS: Alanine Aminotransferase 40 U/L (12-78); Albumin Level 4.6 g/dl (3.5-5.0); Albumin/Globulin Ratio 1.4 (1.1-1.8); Alkaline Phosphatase 81 U/L (38-126); Anion Gap 12.8 mEq/L (5-15); Aspartate Amino Transferase 40 U/L (14-36); Blood Urea Nitrogen 11 mg/dl (7-17); Calcium 9.2 mg/dl (8.4-10.2); Carbon Dioxide 26 mmol/L (22.0-30.0); Chloride 103 mmol/L (98-107); Creatinine Clearance Estimated 179 mL/min (50-200); Estimated Glomerular Filt Rate 94 ml/min (>60); GFR (African American) 113 ML/MIN (>60); Globulin 3.3 g/dL (1.3-3.2); Glucose 106 mg/dl (74-100); Lipase 81 U/L (23-300); Potassium 3.8 mmoL/L (3.5-5.1); Sodium 138 mmol/L (136-145); Total Protein,Serum 7.9 g/dl (6.3-8.2)
[2022-12-26 13:02] LABS: HCG Qualitative, Serum Negative (Negative)
[2022-12-26 13:03] LABS: Microscopic, Urine URINE MICROSCOPIC (MICROSCOPIC)
[2022-12-26 13:07] LABS: Appearance,Urine CLEAR (Clear); Bilirubin,Urine Negative (Negative); Blood, Urine Negative (Negative); Color,Urine YELLOW (Yellow); Glucose,Urine (UA) Negative (Negative); Ketones,Urine Negative (Negative); Leukocyte Esterase,Urine Negative (Negative); Nitrate,Urine Negative (Negative); Protein,Urine Negative (Negative); Specific Gravity, Urine 1.015 (1.005-1.030); Urobilinogen,Urine 0.2 EU/dl (0.2)
[2022-12-26 14:12] LABS: WBC,Urine Occasional #/hpf (0-3)
--- NOTE | 2022-12-26 14:16 | PC.NURSE ---
Addendum entered by Shakira Chaidez RN 12/26/22 14:33: notified ER MD of pain and nausea reported per pt, ER MD states will place medication orders for pt. Original Note: rounded on pt, pt reports abd pain starting to come back and nausea has not improved. Stated to pt will notify ER MD
--- NOTE | 2022-12-26 14:59 | PC.NURSE ---
BRYNN SHIN at discussing results and POC with pt.
--- NOTE | 2022-12-26 15:01 | US_ITS ---
PROCEDURE: US TRANSVAGINAL CLINICAL INDICATION: RLQ pain COMPARISON: No exams were available for comparison FINDINGS: UTERUS: Has been surgically removed. LEFT OVARY: [id number] with a volume of 6ml.0.9 cm ovarian follicle RIGHT OVARY: 3cmx [id number] with a volume of 5.9ml. 0.9 cm ovarian follicle. Both ovaries are seen and appear normal. Doppler flow to both ovaries are seen. There is no fluid in the cul-de-sac. IMPRESSION: 1. Uterus has been surgically removed. 2. Both ovaries are seen and appear to be normal. There is good flow to both ovaries. There is a small follicle on each ovary. 3. No fluid in the cul-de-sac. 4. ER physician has been notified. Dictated by: Rajeev Kim MD 12/26/2022 16:32 Rajeev Kim MD in OV 12/26/2022 16:32
--- NOTE | 2022-12-26 15:14 | PC.NURSE ---
advised rad of US for ovarian torsion
--- NOTE | 2022-12-26 15:58 | PC.NURSE ---
pt return from u/s, rad staff gave ER verbal report.
== END 2022-12-26 16:39 | disposition home or self-care (01) ==
PROVIDERS: Emergency Provider Emergency Medicine; PCP Family Medicine
DX: R10.11 Right upper quadrant pain (principal); R10.31 Right lower quadrant pain; R11.2 Nausea with vomiting, unspecified; E78.5 Hyperlipidemia, unspecified; E66.9 Obesity, unspecified
CPT/HCPCS: 74177; 76830; 80053; 81001; 83690; 84703; 85025; 96361; 96374; 96375; 96376; 99285; J2405; Q9967

== ENCOUNTER 2022-12-28 15:25 | Emergency (ER) | payer OTHER, SELFPAY ==
[2022-12-28] VITALS (7 sets, daily range): BP systolic 133–171; BP diastolic 84–109; PULSE 91–116; RESP 17–103; TEMP 36.8; O2SAT 94–100; BMI 37.1
[2022-12-28 15:58] LABS: Microscopic, Urine URINE MICROSCOPIC (MICROSCOPIC)
[2022-12-28 16:01] LABS: Basophils % 0.5 % (0.1-2.0); Eosinophils # 0.1 K/mm3 (0.0-0.4); Eosinophils % 1.4 % (0.1-12.0); Hematocrit 42.8 % (37.0-47.0); Hemoglobin 13.8 g/dL (12.2-16.2); Lymphocytes % 19.8 % (10-50); Mean Corpuscular HGB Conc 32.3 g/dL (31.8-35.4); Mean Corpuscular Hemoglobin 28.1 pg (27.0-31.2); Mean Corpuscular Volume 87.1 fl (81-99); Mean Platelet Volume 7.2 fl (7.4-10.4); Monocytes # 0.3 K/mm3 (0.1-1.0); Monocytes % 5.7 % (1.7-9.3); Neutrophils # 3.8 K/mm3 (1.8-7.8); Neutrophils % 72.7 % (37.0-80.0); Platelet Count 331 K/mm3 (142-424); Red Blood Count 4.91 M/mm3 (4.20-5.40); Red Cell Distribution Width 12.6 % (11.5-17.5); White Blood Count 5.2 K/mm3 (4.8-10.8)
[2022-12-28 16:04] LABS: Chloride 106 mmol/L (98-107); Potassium 3.8 mmoL/L (3.5-5.1); Sodium 141 mmol/L (136-145)
[2022-12-28 16:07] LABS: Appearance,Urine CLEAR (Clear); Bilirubin,Urine Negative (Negative); Blood, Urine Negative (Negative); Color,Urine YELLOW (Yellow); Glucose,Urine (UA) Negative (Negative); Ketones,Urine Negative (Negative); Leukocyte Esterase,Urine Negative (Negative); Nitrate,Urine Negative (Negative); Protein,Urine Negative (Negative); Specific Gravity, Urine 1.025 (1.005-1.030)
[2022-12-28 16:07] LABS: Alanine Aminotransferase 59 U/L (12-78); Albumin Level 4.4 g/dl (3.5-5.0); Albumin/Globulin Ratio 1.3 (1.1-1.8); Alkaline Phosphatase 67 U/L (38-126); Anion Gap 12.8 mEq/L (5-15); Aspartate Amino Transferase 56 U/L (14-36); Blood Urea Nitrogen 12 mg/dl (7-17); Calcium 8.8 mg/dl (8.4-10.2); Carbon Dioxide 26 mmol/L (22.0-30.0); Creatinine Clearance Estimated 157 mL/min (50-200); Estimated Glomerular Filt Rate 80 ml/min (>60); GFR (African American) 97 ML/MIN (>60); Globulin 3.5 g/dL (1.3-3.2); Glucose 105 mg/dl (74-100); Total Protein,Serum 7.9 g/dl (6.3-8.2)
[2022-12-28 16:24] LABS: Bacteria,Urine Trace /lpf; WBC,Urine Occasional #/hpf (0-3)
--- NOTE | 2022-12-28 17:06 | PC.NURSE ---
pt medicated per MAR. no needs voiced at this time.
--- NOTE | 2022-12-28 17:12 | PC.NURSE ---
Paged Dr. Morfin for Dr. Blackmon
--- NOTE | 2022-12-28 17:13 | PC.NURSE ---
Dr. Blackmon speaking with Dr. Morfin
--- NOTE | 2022-12-28 17:18 | PC.NURSE ---
COVID SWAB SENT TO LAB
--- NOTE | 2022-12-28 17:18 | PC.NURSE ---
ROUNDED ON PT NO COMPLAINTS AT THIS TIME, AT BS
[2022-12-28 17:24] LABS: Coronavirus 19, PCR Not Detected (NotDetected); Influenza A, PCR Not Detected (NotDetected); Influenza B, PCR Not Detected (NotDetected)
--- NOTE | 2022-12-28 17:44 | HMH.EDGENADL ---
Discharge Plan Disposition Patient Disposition: Home, Self-Care Prescriptions Prescriptions: New dicyclomine 20 mg tablet 20 mg PO TID PRN (Reason: abdominal pain or spasm) 7 Days Qty: 21 0RF promethazine 25 mg tablet 25 mg PO TID PRN (Reason: nausea and vomiting) 5 Days Qty: 20 0RF ondansetron 4 mg tablet,disintegrating 4 mg PO Q6H PRN (Reason: nausea and vomiting) 5 Days Qty: 20 0RF No Action venlafaxine 150 mg capsule,extended release 24hr 150 mg PO DAILY Label Comments: TAKE ONE CAPSULE BY MOUTH EVERY DAY leflunomide 20 mg tablet 20 mg PO DAILY Label Comments: TAKE ONE TABLET BY MOUTH EVERY DAY IN THE MORNING meloxicam 7.5 mg tablet 7.5 mg PO DAILY Label Comments: TAKE ONE TABLET BY MOUTH EVERY DAY IN THE MORNING --TAKE WITH FOOD-- duloxetine 60 mg capsule,delayed release(DR/EC) 60 mg PO DAILY Label Comments: TAKE ONE CAPSULE BY MOUTH EVERY DAY Linzess 72 mcg capsule 72 mcg PO DAILY Label Comments: TAKE ONE CAPSULE BY MOUTH EVERY DAY benzonatate 100 mg capsule 100 mg PO TID PRN (Reason: cough) Qty: 30 0RF fluticasone propionate [Flonase Allergy Relief] 50 mcg/actuation spray,suspension 1 - 2 spray intranasal DAILY Qty: 16 0RF Rx Instructions: administer into each nostril methylprednisolone [Medrol (Kang)] 4 mg tablets,dose pack See Rx Instructions .Route .COMPLEX 6 Days Qty: 21 0RF Rx Instructions: taper pack; Referrals Follow up/Referrals: Narinder Dior MD [Primary Care Provider] - See instructions Abhishek Morfin MD [Staff Physician] - See instructions (call tomorrow morning and ask for BJ per Dr. Morfin if you have not heard anything by 930 am regarding a plan for an EGD. ) Clinical Impressions Clinical Impression: Abdominal pain, epigastric, Generalized postprandial abdominal pain Stand Alone Forms Stand Alone Forms: Work/School Release Discharge ED Provider: Everett Blackmon General Adult HPI General Chief complaint: Abdominal Pain Stated complaint: abd pain, vomitting Time Seen by Provider: 12/28/22 16:43 Mode of Arrival: Ambulatory Source of Information: Patient Limitations: No Limitations Description of Symptoms (Recalled from ER Triage Doc. by RN): pt to ed c/o abd pain. pt states she was seen on monday for the same complaint. pt states her pain is primarily in her epigastric region but radiates to her RLQ and mid-abd. pt states since monday she has not been able to keep food or drinks down. pt states she has a hx of chronic constipation. History of Present Illness HPI narrative: Patient is a 37-year-old female presenting today with postprandial epigastric abdominal pain has been going on for 1 month. She states that this happens every time she eats and has gotten to the point where is so severe that she cannot tolerate most foods and has lost nearly 10 pounds in the last month. She came to the emergency department recently where she had a transvaginal ultrasound because at that point she had some suprapubic and lower abdominal pain as well which was negative and she also had a CT scan with IV contrast of her abdomen pelvis which was unremarkable. Specifically there is no evidence of any type of wall thickening around the stomach and/or duodenum. She has not had any hematemesis melena or hematochezia. She has a history of cholecystectomy and has not had any right upper quadrant pain associated with this. Currently she states the pain feels like reflux and is always postprandial in nature. Related Data Home Medications Medication Instructions Recorded Confirmed duloxetine 60 mg capsule,delayed 60 mg PO DAILY . 11/13/22 11/13/22 release leflunomide 20 mg tablet 20 mg PO DAILY . 11/13/22 11/13/22 linaclotide 72 mcg capsule 72 mcg PO DAILY . 11/13/22 11/13/22 (Bouchra) meloxicam 7.5 mg tablet 7.5 mg PO DAILY . 11/13/22 11/13/22 venlafaxine 150 mg 150 mg PO DAILY . 11/13/22 11/13/22 ca
[2022-12-28 18:50] LABS: Lipase 131 U/L (23-300)
== END 2022-12-28 19:12 | disposition home or self-care (01) ==
PROVIDERS: Emergency Provider Student in an Organized Health Care Education/Training Program; PCP Family Medicine
DX: R10.84 Generalized abdominal pain (principal); E78.5 Hyperlipidemia, unspecified; E66.9 Obesity, unspecified; Z68.35 Body mass index [BMI] 35.0-35.9, adult
CPT/HCPCS: 80053; 81001; 83690; 85025; 87635; 87636; 96361; 96374; 96375; 99284; 99285; C9803; J2405; U0003; U0005

== ENCOUNTER 2022-12-29 15:10 | Observation (INO) | payer OTHER, SELFPAY ==
[2022-12-29 15:24] VITALS: BP 116/85; PULSE 117; RESP 20; TEMP 36.7; O2SAT 98; BMI 37.1
--- NOTE | 2022-12-29 15:26 | PC.NURSE ---
Dr. Blackmon speaking with Dr. Dior
--- NOTE | 2022-12-29 15:32 | PC.NURSE ---
Dr Blackmon speaking with Dr. Morfin
--- NOTE | 2022-12-29 15:39 | HMH.EDGENADL ---
Discharge Plan Disposition Patient Disposition: Admitted Chief Complaint: Abdominal Pain Prescriptions Prescriptions: No Action methylprednisolone [Medrol (Kang)] 4 mg tablets,dose pack See Rx Instructions .ROUTE .COMPLEX Rx Instructions: taper pack; fluticasone propionate [Flonase Allergy Relief] 50 mcg/actuation spray,suspension 1 - 2 spray intranasal DAILY Rx Instructions: administer into each nostril omeprazole 40 mg capsule,delayed release(DR/EC) 40 mg PO DAILY Patient Comments: TAKE ONE CAPSULE BY MOUTH EVERY DAY hydroxyzine HCl 25 mg tablet 25 mg PO DAILY Patient Comments: TAKE ONE TABLET BY MOUTH FOUR TIMES DAILY NEEDED MAY CAUSE DROWSINESS leflunomide 20 mg tablet 20 mg PO DAILY Patient Comments: TAKE ONE TABLET BY MOUTH EVERY DAY IN THE MORNING duloxetine 60 mg capsule,delayed release(DR/EC) 60 mg PO DAILY Patient Comments: TAKE ONE CAPSULE BY MOUTH EVERY DAY Linzess 72 mcg capsule 72 mcg PO DAILY Patient Comments: TAKE ONE CAPSULE BY MOUTH EVERY DAY dicyclomine 20 mg tablet 20 mg PO TID PRN (Reason: abdominal pain or spasm) 7 Days Qty: 21 0RF promethazine 25 mg tablet 25 mg PO TID PRN (Reason: nausea and vomiting) 5 Days Qty: 20 0RF ondansetron 4 mg tablet,disintegrating 4 mg PO Q6H PRN (Reason: nausea and vomiting) 5 Days Qty: 20 0RF Referrals Follow up/Referrals: Narinder Dior MD [Primary Care Provider] - See instructions Clinical Impressions Clinical Impression: Generalized postprandial abdominal pain, Acute epigastric pain, Unintentional weight loss, Intractable abdominal pain Instructions Patient Instructions: DI for Acute Abdominal Pain Discharge ED Provider: Everett Blackmon General Adult HPI General Chief complaint: Abdominal Pain Stated complaint: abd pain vomiting Time Seen by Provider: 12/29/22 15:22 Mode of Arrival: Ambulatory Source of Information: Patient Limitations: No Limitations Description of Symptoms (Recalled from ER Triage Doc. by RN): pt to ed c/o epigastric pain that radiates through to her back. pt is scheduled for EGD tomorrow @ 1:00. History of Present Illness HPI narrative: Patient is a 37-year-old female here with persistent and severe epigastric postprandial abdominal pain. This has been ongoing for the past month and she has lost 10 pounds unintentionally. This is her third ED visit in the last week. First ED visit she had a CT scan and an ultrasound transvaginally which was unremarkable. She was sent home and returned with worsening of the same types of symptoms mainly epigastric and nature. I saw this patient yesterday and had extensive talk with her she required extensive pain medication nausea medicine for pain control. Her work-up was otherwise negative did not repeat any imaging as I felt like it was not necessary at this point she is since she had recently had a CT scan. I spoke with Dr. Velasquez yesterday who facilitated a close outpatient scope and had her on the schedule for tomorrow at [address] Victor. However she was unable to stay at home and has had significant worsening of her epigastric abdominal pain which again is postprandial and now radiating through to her back. Related Data Home Medications Medication Instructions Recorded Confirmed duloxetine 60 mg capsule,delayed 60 mg PO DAILY Depression 11/13/22 12/29/22 release leflunomide 20 mg tablet 20 mg PO DAILY . 11/13/22 12/29/22 linaclotide 72 mcg capsule 72 mcg PO DAILY Constipation 11/13/22 12/29/22 (Linzess) fluticasone propionate 50 1 - 2 spray intranasal DAILY 12/29/22 12/29/22 mcg/actuation nasal allergies spray,suspension (Flonase Allergy Relief) hydroxyzine HCl 25 mg tablet 25 mg PO DAILY Anxiety 12/29/22 12/29/22 methylprednisolone 4 mg tablets in See Rx Instructions .Route 12/29/22 12/29/22 a dose pack (Medrol (Kang)) .COMPLEX Rapid Heart Rate omeprazole 40 m
--- NOTE | 2022-12-29 15:39 | PC.NURSE ---
Dr. Blackmon speaking with Dr. Dior
--- NOTE | 2022-12-29 15:45 | PC.NURSE ---
Spoke with Lolita in care management regarding pt admission
[2022-12-29 15:46] LABS: Basophils % 0.5 % (0.1-2.0); Eosinophils # 0.1 K/mm3 (0.0-0.4); Eosinophils % 1.3 % (0.1-12.0); Hematocrit 43.9 % (37.0-47.0); Hemoglobin 14.1 g/dL (12.2-16.2); Lymphocytes # 1.9 K/mm3 (0.7-4.5); Mean Corpuscular Hemoglobin 28.2 pg (27.0-31.2); Mean Corpuscular Volume 87.9 fl (81-99); Mean Platelet Volume 7.4 fl (7.4-10.4); Monocytes # 0.4 K/mm3 (0.1-1.0); Monocytes % 6.1 % (1.7-9.3); Neutrophils # 3.7 K/mm3 (1.8-7.8); Neutrophils % 61.2 % (37.0-80.0); Platelet Count 299 K/mm3 (142-424); Red Cell Distribution Width 12.5 % (11.5-17.5)
[2022-12-29 15:49] LABS: Alanine Aminotransferase 58 U/L (12-78); Albumin Level 4.3 g/dl (3.5-5.0); Albumin/Globulin Ratio 1.3 (1.1-1.8); Alkaline Phosphatase 58 U/L (38-126); Anion Gap 14.1 mEq/L (5-15); Aspartate Amino Transferase 52 U/L (14-36); Bilirubin,Total 1.4 mg/dl (0.2-1.3); Blood Urea Nitrogen 12 mg/dl (7-17); Calcium 8.6 mg/dl (8.4-10.2); Carbon Dioxide 25 mmol/L (22.0-30.0); Chloride 103 mmol/L (98-107); Creatinine Clearance Estimated 140 mL/min (50-200); Estimated Glomerular Filt Rate 70 ml/min (>60); GFR (African American) 85 ML/MIN (>60); Globulin 3.3 g/dL (1.3-3.2); Glucose 122 mg/dl (74-100); Lipase 86 U/L (23-300); Potassium 3.1 mmoL/L (3.5-5.1); Sodium 139 mmol/L (136-145); Total Protein,Serum 7.6 g/dl (6.3-8.2)
[2022-12-29 15:50] LABS: Coronavirus 19, PCR Not Detected (NotDetected); Influenza A, PCR Not Detected (NotDetected); Influenza B, PCR Not Detected (NotDetected)
--- NOTE | 2022-12-29 16:24 | PC.NURSE ---
report called to shoaib clemons
--- NOTE | 2022-12-29 16:28 | PC.NURSE ---
PT RESTING IN ROOM, AT BS
--- NOTE | 2022-12-29 16:52 | EXP.HP ---
History of Present Illness *Admission Date: 12/29/22 *Reason for visit:: epigastric pain *History of present illness: Patient is a 37-year-old female here with persistent and severe epigastric postprandial abdominal pain. This has been ongoing for the past month and she has lost 10 pounds unintentionally. This is her third ED visit in the last week. First ED visit she had a CT scan and an ultrasound transvaginally which was unremarkable. She was sent home and returned with worsening of the same types of symptoms mainly epigastric and nature. I saw this patient yesterday and had extensive talk with her she required extensive pain medication nausea medicine for pain control. Her work-up was otherwise negative did not repeat any imaging as I felt like it was not necessary at this point she is since she had recently had a CT scan. I spoke with Dr. Velasquez yesterday who facilitated a close outpatient scope and had her on the schedule for tomorrow at [address] Victor. However she was unable to stay at home and has had significant worsening of her epigastric abdominal pain which again is postprandial and now radiating through to her back. Patient with recurrent and ongoing epigastric postprandial abdominal pain. This is been going on for 1 month this is her third ED visit and we try to facilitate an outpatient endoscopy yesterday. She is on the schedule tomorrow at [address] Victor however her pain is severe enough to where she needs to be admitted at this point for pain control. Yesterday she got Pepcid GI cocktail Phenergan and morphine Zofran and never really felt excellent. Ongoing to escalate and initiate Dilaudid and Zofran in the emergency department. I spoke with Dr. Velasquez who is on-call as well as Dr. Dior who agrees to admit the patient for pain control. Dr. Velasquez and I agree that there is no emergent need for him to see her tonight and that a consult order for Dr. Victor will be placed for 7 AM in the morning when transition of surgical coverage begins with Dr. Victor. Patient is aware of this and she will be admitted to observation status under Dr. Dior. Her abdominal exam is still benign and is localized to the epigastric region. I do not feel like she has any perforation. I am holding off on additional imaging as she recently had a CT scan. (above as per ER physician) The patient was seen in the office of A yesterday for an ER follow-up. It was felt at that time she had an ulcer. An EGD was ordered and she was given a rx for carafate and pantoprazole. Her meloxicam was discontinued as well. She was not able to get the prescriptions yesterday. She has had persistent pain and will be admitted and have an EGD tomorrow. [facility] Disclaimer: The information contained in this section may have been updated after the patient was seen, as this information can be updated by other users. Medical History Ankylosing spondylitis Depression Endometriosis Hyperlipidemia (~11/22/17) Irritable bowel syndrome with constipation Migraines Obesity (BMI 35.0-39.9 without comorbidity) Rheumatoid arthritis Rheumatoid factor positive Sinusitis Vitamin D deficiency (~11/22/17) Surgical History History of cholecystectomy History of colonoscopy History of hysterectomy History of laparotomy History of tubal ligation Hx of dilation and curettage Family History No significant family history Coronary artery disease Cancer Hypertension Stroke 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 (Updated 12/29/22 @ 17:28 by Sisi Khan RN) Smoking Status: Never smoker alcohol intake: current substance use type: denies use current occupational status: unemployed Travel in the last 8 weeks: None household members: spouse and children housing: house caffeine: Yes Review of Systems Constitution
[2022-12-29 16:54] VITALS: BP 121/84; PULSE 102; RESP 18; TEMP 36.7; O2SAT 99
[2022-12-29 17:05] VITALS: BP 163/110; PULSE 118; RESP 18; TEMP 36.7; O2SAT 99; BMI 36.9
--- NOTE | 2022-12-29 17:23 | PC.NURSE ---
notified md about pts b/p and hr. pt states her vs have been elevated like this for a few weeks/months.
[2022-12-29 20:00] VITALS: BP 128/89; PULSE 119; RESP 16; TEMP 36.6; O2SAT 97
[2022-12-30] VITALS (10 sets, daily range): BP systolic 113–138; BP diastolic 58–90; PULSE 82–112; RESP 16–18; TEMP 36.2–36.9; O2SAT 95–99; BMI 36.7
[2022-12-30 06:52] LABS: Basophils % 0.5 % (0.1-2.0); Eosinophils # 0.1 K/mm3 (0.0-0.4); Eosinophils % 1.9 % (0.1-12.0); Hematocrit 42.2 % (37.0-47.0); Hemoglobin 13.2 g/dL (12.2-16.2); Lymphocytes # 1.8 K/mm3 (0.7-4.5); Lymphocytes % 32.9 % (10-50); Mean Corpuscular HGB Conc 31.2 g/dL (31.8-35.4); Mean Corpuscular Hemoglobin 27.7 pg (27.0-31.2); Mean Corpuscular Volume 88.8 fl (81-99); Mean Platelet Volume 7.5 fl (7.4-10.4); Monocytes # 0.4 K/mm3 (0.1-1.0); Monocytes % 6.9 % (1.7-9.3); Neutrophils # 3.1 K/mm3 (1.8-7.8); Neutrophils % 57.8 % (37.0-80.0); Platelet Count 289 K/mm3 (142-424); Red Blood Count 4.76 M/mm3 (4.20-5.40); Red Cell Distribution Width 12.6 % (11.5-17.5); White Blood Count 5.3 K/mm3 (4.8-10.8)
[2022-12-30 07:06] LABS: Chloride 104 mmol/L (98-107); Potassium 3.7 mmoL/L (3.5-5.1); Sodium 139 mmol/L (136-145)
[2022-12-30 07:09] LABS: Anion Gap 10.7 mEq/L (5-15); Blood Urea Nitrogen 12 mg/dl (7-17); Carbon Dioxide 28 mmol/L (22.0-30.0); Creatinine Clearance Estimated 156 mL/min (50-200); Estimated Glomerular Filt Rate 80 ml/min (>60); GFR (African American) 97 ML/MIN (>60)
[2022-12-30 07:10] LABS: Calcium 8.2 mg/dl (8.4-10.2); Glucose 89 mg/dl (74-100)
--- NOTE | 2022-12-30 08:11 | HMH.PHAINT1 ---
Pharmacy Intervention Comments: MEDICATION RECONCILIATION COMPLETED ON PATIENT USING EXTERNAL FILL HISTORY FROM PHARMACY. -ALY MATHEW, ALBERTOD
--- NOTE | 2022-12-30 08:30 | EXP.ACUTE.PN ---
Subjective *Date: 12/30/22 *Time: 08:51 Interval history: Patient still not feeling well. Needing pain medication and antiemetics regularly. Is NPO this am for an EGD. Medical Exam Vital signs and Labs for Last 24 Hours: Vital Signs Temp Pulse Pulse Resp BP BP Pulse Ox 12/30/22 04:00 98 F 112 H 16 125/77 98 12/29/22 20:00 98 F 119 H 16 128/89 97 12/29/22 17:05 98.1 F 118 H 18 163/110 H 99 12/29/22 16:54 98.1 F 102 H 18 121/84 12/29/22 15:24 98.1 F 117 H 20 116/85 98 Intake and Output 12/29/22 12/30/22 12/30/22 19:59 03:59 11:59 Intake Total 650 / 650 Balance 650 / 650 Intake: Intake, Total IV Amount 650 / 650 Dex 5% in 0.45% NaCl 1,000 ml @ 650 / 650 50 mls/hr IV .Q20H [facility] Rx#: [id number] Other: Weight 229 lb 2 oz 228 lb 8 oz Patient Weight 12/30/22 11:59 Weight 228 lb 8 oz Laboratory Results - last 24 hr 12/29/22 15:20: SARS-CoV-2 (PCR) Not detected, Influenza A Untype (PCR) Not detected, Influenza Type B (PCR) Not detected 12/29/22 15:30: WBC 6.0, RBC 5.00, Hgb 14.1, Hct 43.9, MCV 87.9, MCH 28.2, MCHC 32.0, RDW 12.5, Plt Count 299, MPV 7.4, Neut % (Auto) 61.2, Lymph % (Auto) 31.0, [place] % (Auto) 6.1, Eos % (Auto) 1.3, Baso % (Auto) 0.5, Neut # (Auto) 3.7, Lymph # (Auto) 1.9, [place] # (Auto) 0.4, Eos # (Auto) 0.1, Baso # (Auto) 0.0, Sodium 139, Potassium 3.1 L, Chloride 103, Carbon Dioxide 25, Anion Gap 14.1, BUN 12, Creatinine 0.90, Estimated Creat Clear 140, Estimated GFR 70, Est GFR ( Amer) 85, Glucose 122 H, Calcium 8.6, Total Bilirubin 1.4 H, AST 52 H, ALT 58, Alkaline Phosphatase 58, Total Protein 7.6, Albumin 4.3, Globulin 3.3 H, Albumin/Globulin Ratio 1.3, Lipase 86 12/30/22 06:20: WBC 5.3, RBC 4.76, Hgb 13.2, Hct 42.2, MCV 88.8, MCH 27.7, MCHC 31.2 L, RDW 12.6, Plt Count 289, MPV 7.5, Neut % (Auto) 57.8, Lymph % (Auto) 32.9, [place] % (Auto) 6.9, Eos % (Auto) 1.9, Baso % (Auto) 0.5, Neut # (Auto) 3.1, Lymph # (Auto) 1.8, [place] # (Auto) 0.4, Eos # (Auto) 0.1, Baso # (Auto) 0.0, Sodium 139, Potassium 3.7, Chloride 104, Carbon Dioxide 28, Anion Gap 10.7, BUN 12, Creatinine 0.80, Estimated Creat Clear 156, Estimated GFR 80, Est GFR ( Amer) 97, Glucose 89 D, Calcium 8.2 L I & O for Labs for Last 24 Hours: Intake & Output 12/27/22 12/28/22 12/29/22 12/30/22 11:59 11:59 11:59 11:59 Intake Total 650 / 650 Balance 650 / 650 Weight 228 lb 8 oz Constitutional: Present no acute distress Respiratory: Present CTA bilaterally Cardiac: Present Reg Rate and Rhythm GI: Present soft, distention, tenderness (epigastric area) and guarding (epigastric area) Extremities: Absent edema Assessment and Plan *Assessment and plan (1) Intractable abdominal pain: Status: Acute Category: Medical Code(s): R10.9 - Unspecified abdominal pain (2) Acute epigastric pain: Status: Acute Category: Medical Code(s): R10.13 - Epigastric pain (3) Unintentional weight loss: Status: Acute Category: Medical Code(s): R63.4 - Abnormal weight loss (4) Hyperlipidemia: Status: Chronic Category: Medical Code(s): E78.5 - Hyperlipidemia, unspecified (5) Vitamin D deficiency: Status: Chronic Category: Medical Code(s): E55.9 - Vitamin D deficiency, unspecified (6) Irritable bowel syndrome with constipation: Status: Acute Category: Medical Code(s): K58.1 - Irritable bowel syndrome with constipation (7) Rheumatoid arthritis: Status: Acute Category: Medical Code(s): M06.9 - Rheumatoid arthritis, unspecified Plan Patient scheduled for EGD today. Dr. Dior entry - Saw patient, agree with above note.
--- NOTE | 2022-12-30 09:05 | PC.NURSE ---
COURTESY TECH NOTE; ROUNDED ON PT 0755, PT DENIED NEED FOR ASSISTANCE WITH RESTROOM, AND NEED TO REPOSITION IN BED. PT C/O ABDOMINAL PAIN AT THIS TIME, NOTIFIED NURSE. CALL LIGHT WITHIN REACH, NO FURTHER REQUESTS AT THIS TIME Fina CHANDRA, GABRIEL
--- NOTE | 2022-12-30 11:51 | PC.NURSE ---
PT OFF FLOOR AT 1147
--- NOTE | 2022-12-30 12:14 | EXP.SURG.CON ---
History of Present Illness *Admission Date: 12/29/22 *History of present illness: Patient is a 37-year-old female who surgical consultation is obtained for upper endoscopy. She has had some severe epigastric postprandial abdominal pain with unintentional weight loss for about 1 month. She has been in the emergency department due to this 3 times in the past couple of days and her symptoms have been persistent. Her work-up in the emergency department has been unremarkable including laboratory studies and CT scan of the abdomen pelvis with IV and oral contrast. Discussion was held with surgeon on-call a couple of times, Dr. Morfin, regarding possible scheduling of outpatient upper endoscopy with earliest available endoscopist. This was arranged to be done on 12/30/22. However, she then presented back to the emergency department once again in the afternoon of 12/29/2022 as she will had ongoing worsening epigastric abdominal pain radiating through to her back and was unable to remain at home as an outpatient. She was admitted and required Dilaudid and Zofran. She had recently been given an outpatient prescription of Carafate and pantoprazole and had her meloxicam discontinued. She was admitted to [facility] for failure of outpatient management and for surgery to perform EGD. [facility] Disclaimer: The information contained in this section may have been updated after the patient was seen, as this information can be updated by other users. Medical History Ankylosing spondylitis Depression Endometriosis Hyperlipidemia (~11/22/17) Irritable bowel syndrome with constipation Migraines Obesity (BMI 35.0-39.9 without comorbidity) Rheumatoid arthritis Rheumatoid factor positive Sinusitis Vitamin D deficiency (~11/22/17) Surgical History History of cholecystectomy History of colonoscopy History of hysterectomy History of laparotomy History of tubal ligation Hx of dilation and curettage Family History No significant family history Coronary artery disease Cancer Hypertension Stroke 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 (Updated 12/29/22 @ 17:28 by Sisi Khan RN) Smoking Status: Never smoker alcohol intake: current substance use type: denies use current occupational status: unemployed Travel in the last 8 weeks: None household members: spouse and children housing: house caffeine: Yes Review of Systems Constitutional Constitutional: Reports headache(s) and Reports weakness ENT Ears, Nose, Mouth, and Throat: Reports headache(s) and Reports vertigo *Neurologic Neurologic: Reports headache(s), Reports vertigo and Reports weakness Meds Home Medications and Allergies Home Medications Medication Instructions Recorded Confirmed Type duloxetine 60 mg capsule,delayed 60 mg PO DAILY MOOD 11/13/22 12/29/22 History release leflunomide 20 mg tablet 20 mg PO DAILY Rheumatoid Arthritis 11/13/22 12/29/22 History linaclotide 72 mcg capsule 72 mcg PO DAILY Constipation 11/13/22 12/29/22 History (Linzess) dicyclomine 20 mg tablet 20 mg PO TID PRN abdominal pain or 12/28/22 12/29/22 Rx spasm 7 days #21 tabs ondansetron 4 mg disintegrating 4 mg PO Q6H PRN nausea and 12/28/22 12/29/22 Rx tablet vomiting 5 days #20 tabs promethazine 25 mg tablet 25 mg PO TID PRN nausea and 12/28/22 12/29/22 Rx vomiting 5 days #20 tabs fluticasone propionate 50 1 - 2 spray intranasal DAILY PRN 12/29/22 12/29/22 History mcg/actuation nasal allergies spray,suspension (Flonase Allergy Relief) hydroxyzine HCl 25 mg tablet 25 mg PO QIDP PRN Anxiety 12/29/22 12/30/22 History duloxetine 30 mg capsule,delayed 30 mg PO DAILY MOOD 12/30/22 12/30/22 History release pantoprazole 40 mg tablet,delayed 40 mg PO DAILY Acid Reflux 12/30/22 12/30/22 History release prednisone 10 mg tablet
--- NOTE | 2022-12-30 12:15 | P.PN_ITS ---
[facility] Disclaimer: The information contained in this section may have been updated after the patient was seen, as this information can be updated by other users. Medical History Ankylosing spondylitis Depression Endometriosis Hyperlipidemia (~11/22/17) Irritable bowel syndrome with constipation Migraines Obesity (BMI 35.0-39.9 without comorbidity) Rheumatoid arthritis Rheumatoid factor positive Sinusitis Vitamin D deficiency (~11/22/17) Surgical History History of cholecystectomy History of colonoscopy History of hysterectomy History of laparotomy History of tubal ligation Hx of dilation and curettage Family History Other Cancer Coronary artery disease Hypertension No significant family history Stroke 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 (Updated 12/29/22 @ 17:28 by Sisi Khan RN) Smoking Status: Never smoker alcohol intake: current substance use type: denies use current occupational status: unemployed Travel in the last 8 weeks: None household members: spouse and children housing: house caffeine: Yes [facility] Anesthesia Checklist Patient Identification Patient Identification: Arm Band and Verbal (Name & ) Structural Data Admitted From: Inpatient Planned Operative Procedure/s: EGD NPO Status Verified Time NPO: 00:00 Airway Assessment Dentition: Good Dentition Neurological Assessment Level of Consciousness: Awake and Alert Hx Seizures: No Numbness or tingling in extremities: No Anesthesia Plan Anesthesia Risk discussed: Yes ASA Class: II Anesthesia Type: MAC
--- NOTE | 2022-12-30 12:43 | P.PCN_ITS ---
Procedure: Date: 12/30/22 Patient Date of :: 1985 Procedure Performed:: Esophagogastroduodenoscopy with biopsies Indications:: Patient is a 37-year-old female who has had intractable epigastric pain worse jenae postprandially with associated nausea requiring inpatient admission for antiemetics and intravenous narcotics. Work-up including laboratory studies and CT scan of the abdomen and pelvis with IV and oral contrast has been unremarkable. She was admitted for inpatient management and surgical evaluation to perform EGD. Performing Provider:: Travon Victor MD Referring Provider:: Narinder Dior MD Sedation:: MAC sedation Procedure:: Patient history was obtained and appropriate physical examination was performed. Patient's medications and allergies were reviewed. Informed consent was obtained after explaining the benefits, alternatives, and risks of the procedure including, but not limited to, bleeding, perforation, missed lesions, and adverse reaction to anesthesia medications. Patient was transported to endoscopy procedure room. Patient was connected to monitoring devices. Throughout the procedure the patient's blood pressure, pulse, and oxygen saturations were monitored continuously. Patient identification and planned procedure were verified by the staff. Patient was positioned in lateral decubitus position. Olympus endoscope was inserted via the oropharynx. Esophagus was cannulated. Overall esophagus appeared unremarkable. Gastroesophageal junction was encountered at 38 cm from the incisors. Stomach was cannulated and insufflated. Retroflexion revealed no evidence of any appreciable hiatal hernia. There was some diffuse mild nonerosive gastropathy. Pylorus was traversed. Endoscope was advanced a generous distance into the small bowel inspecting the entire duodenum which appeared normal. Endoscope was withdrawn into the gastric lumen. Gastric mucosal biopsy was obtained for H. pylori assessment and histopathology. Biopsy was obtained at the gastroesophageal junction. Distal esophageal biopsy was obtained. Stomach was desufflated and the scope was withdrawn. Findings:: Esophagus normal Gastroesophageal junction at 38 cm Mild diffuse nonerosive gastropathy/gastritis Duodenum normal Recommendations:: No etiology to explain epigastric pain on upper endoscopy. Follow-up on pathology. Treat H. pylori if positive. Complications:: None immediate Estimated blood obtained (mL): 1 Colonoscopy Component Colonoscopy Component Was a colonoscopy performed during today's procedure?: No
--- NOTE | 2022-12-30 14:44 | PC.NURSE ---
PT SLEEPING WELL. PT UNHOOKED IV AND DATASCOPE HER SELF. PAGED ALEXI REGARDING DIET AND PTS PAIN MED REGIMEN. PER ALEXI, ADVANCE DIET TOLERATED, ORDER: TRAMADOL 50MG PO Q6HR PRN FOR PAIN TYLENOL 650MG PO Q6HR KADEN LEVSIN 0.125 PO Q6HR KADEN DC: PRN TYLENOL AND IV DILAUDID
--- NOTE | 2022-12-30 18:38 | PC.NURSE ---
PT ATE CHICKEN NOODLE SWOUP, STATED NOT LONG AFTER EATING SHE BECAME NAUSEA, VOMITED X1, SMALL AMOUNT. TREATED PER AUG, PT STATES SHES IN PAIN RATING 8/10. CURRENTLY SITTING IN BED ON THE PHONE WITH . VSS. NO CONCERNS AT THIS TIME.
[2022-12-31 04:00] VITALS: BP 131/73; PULSE 85; RESP 18; TEMP 36.5; O2SAT 98; BMI 37.3
--- NOTE | 2022-12-31 05:15 | PC.NURSE ---
Patient has not complained of pain until recently. Patient states she believes the tramadol works the best for pain control. Patient did have some nausea when i first came on shift, see ZEN, after medication she did eat part of a sandwich and chips with no complaints stated to RN. Patient has rested throughout the night. No other issues noted by patient.
[2022-12-31 07:45] VITALS: BP 123/78; PULSE 83; RESP 16; TEMP 36.3; O2SAT 96
--- NOTE | 2022-12-31 09:11 | EXP.ACUTE.PN ---
Subjective *Date: 12/31/22 *Time: 09:11 Interval history: Patient had EGD yesterday, spoke to Dr. Victor about results. She does feel better today, thinks Levsin helped her the most. Tolerating regular diet. Medical Exam Vital signs and Labs for Last 24 Hours: Vital Signs Temp Pulse Resp BP Pulse Ox 12/31/22 07:45 97.3 F L 83 16 123/78 96 12/31/22 04:00 97.7 F 85 18 131/73 98 12/30/22 20:00 98.2 F 91 H 18 135/83 98 12/30/22 17:45 98.5 F 96 H 16 115/75 99 12/30/22 16:45 98.2 F 96 H 16 116/77 98 12/30/22 13:44 97.6 F 90 16 127/90 98 12/30/22 13:00 97.8 F 93 H 16 127/72 98 12/30/22 13:02 83 18 138/69 95 12/30/22 12:57 82 18 119/67 96 12/30/22 12:48 97.2 F L 85 18 113/58 L 95 Intake and Output 12/30/22 12/31/22 12/31/22 23:59 07:59 15:59 Intake Total 240 / 890 60 / 60 Output Total 0 / 0 0 / 0 Balance 240 / 890 60 / 60 Intake: Intake, Oral Amount 240 / 240 60 / 60 Output: Output, Urine Amount 0 / 0 0 / 0 Other: Number of Unmeasured Voids 0 1 Weight 232 lb 1 oz Patient Weight 12/31/22 23:59 Weight 232 lb 1 oz I & O for Labs for Last 24 Hours: Intake & Output 12/28/22 12/29/22 12/30/22 12/31/22 23:59 23:59 23:59 23:59 Intake Total 890 / 890 60 / 60 Output Total 0 / 0 0 / 0 Balance 890 / 890 60 / 60 Weight 229 lb 2 oz 228 lb 8 oz 232 lb 1 oz Constitutional: Present no acute distress Assessment and Plan *Assessment and plan (1) Intractable abdominal pain: Status: Acute Category: Medical Code(s): R10.9 - Unspecified abdominal pain (2) Acute epigastric pain: Status: Acute Category: Medical Code(s): R10.13 - Epigastric pain (3) Dyspnea: Status: Acute Qualifiers: Dyspnea type: unspecified Qualified Code(s): R06.00 - Dyspnea, unspecified Category: Medical Code(s): R06.00 - Dyspnea, unspecified Plan OK for discharge home today, will treat with Levsin and give a few Tramadol, f/u with Dr. Victor for biopsy results.
--- NOTE | 2022-12-31 10:11 | EXP.SURG.PN ---
Subjective Narrative: Patient feels better. Symptoms improved after starting the Levsin and tramadol. Tolerated couple of meals with regular diet. Exam Data for Last 24 hours Vital signs and Labs for Last 24 Hours: Temp Pulse Resp BP Pulse Ox 97.3 F L 83 16 123/78 96 12/31/22 07:45 12/31/22 07:45 12/31/22 07:45 12/31/22 07:45 12/31/22 07:45 I & O for Last 24 hours: Intake & Output 12/28/22 12/29/22 12/30/22 12/31/22 11:59 11:59 11:59 11:59 Intake Total 650 / 650 300 / 300 Output Total 0 / 0 0 / 0 Balance 650 / 650 300 / 300 Weight 228 lb 8 oz 232 lb 1 oz Progress Note: A&P Assessment and plan (1) Intractable abdominal pain: Status: Acute Assessment and plan: Discharge home with outpatient follow-up with gastroenterology (2) Acute epigastric pain: Status: Acute (3) Dyspnea: Status: Acute
--- NOTE | 2023-01-02 15:31 | CARE MANAGER ---
Called and spoke with art to discuss recent discharge. She states she is not doing well, pain medication is not working as well. I advised her to call her GI doctor, who she has an appt with on 01/26 and that she should also call Dr. Dior's office for a f/u appt, neither of which she has done as of yet.
--- NOTE | 2023-01-06 08:27 | EXP.DC.SUM ---
General Admission date:: 12/29/22 Discharge date: 12/31/22 HPI HPI HPI: Patient is a 37-year-old female here with persistent and severe epigastric postprandial abdominal pain. This has been ongoing for the past month and she has lost 10 pounds unintentionally. This is her third ED visit in the last week. First ED visit she had a CT scan and an ultrasound transvaginally which was unremarkable. She was sent home and returned with worsening of the same types of symptoms mainly epigastric and nature. I saw this patient yesterday and had extensive talk with her she required extensive pain medication nausea medicine for pain control. Her work-up was otherwise negative did not repeat any imaging as I felt like it was not necessary at this point she is since she had recently had a CT scan. I spoke with Dr. Velasquez yesterday who facilitated a close outpatient scope and had her on the schedule for tomorrow at [address] Victor. However she was unable to stay at home and has had significant worsening of her epigastric abdominal pain which again is postprandial and now radiating through to her back. Patient with recurrent and ongoing epigastric postprandial abdominal pain. This is been going on for 1 month this is her third ED visit and we try to facilitate an outpatient endoscopy yesterday. She is on the schedule tomorrow at [address] Victor however her pain is severe enough to where she needs to be admitted at this point for pain control. Yesterday she got Pepcid GI cocktail Phenergan and morphine Zofran and never really felt excellent. Ongoing to escalate and initiate Dilaudid and Zofran in the emergency department. I spoke with Dr. Velasquez who is on-call as well as Dr. Dior who agrees to admit the patient for pain control. Dr. Velasquez and I agree that there is no emergent need for him to see her tonight and that a consult order for Dr. Victor will be placed for 7 AM in the morning when transition of surgical coverage begins with Dr. Victor. Patient is aware of this and she will be admitted to observation status under Dr. Dior. Her abdominal exam is still benign and is localized to the epigastric region. I do not feel like she has any perforation. I am holding off on additional imaging as she recently had a CT scan. (above as per ER physician) The patient was seen in the office of [facility] yesterday for an ER follow-up. It was felt at that time she had an ulcer. An EGD was ordered and she was given a rx for carafate and pantoprazole. Her meloxicam was discontinued as well. She was not able to get the prescriptions yesterday. She has had persistent pain and will be admitted and have an EGD tomorrow. Hospital Course Hospital Course Hospital Course: The patient was admitted for pain control and an EGD was scheduled for 12/30/2022. She required pain medication and antiemetics regularly. Her bilirubin and AST were slightly elevated. She was taken for an EGD which showed mild diffuse nonerosive gastropathy/gastritis. The duodenum was normal. Biopsies were taken. Dr. Victor did not feel there was an etiology to explain the epigastric pain on upper endoscopy and he wanted to follow-up with pathology. She was started on some Levsin and it seemed to help. She was able to tolerate a diet and was stable to be discharged home on 12/31/2022 on Levsin and a few tramadol while awaiting biopsy results. Exam Data for Last 24 hours Vital signs and Labs for Last 24 Hours: Temp Pulse Resp BP Pulse Ox O2 Del Method 97.3 F L 83 16 123/78 96 Room Air 12/31/22 07:45 12/31/22 07:45 12/31/22 07:45 12/31/22 07:45 12/31/22 07:45 12/31/22 09:00 Narrative: Constitutional Comments: Does not appear to feel well *Routine HEENT Exam Head: Present normocephalic and atraumatic Eye: Present EOMI and PERRL ENT: Present mucous membranes dry *Routine Neck Exam Neck: Present supple and full ROM *Routine Respiratory Exam Respiratory: Present CTA bila
== END 2022-12-31 10:14 | disposition home or self-care (01) ==
LOC: ER 15:49 → 2ND 19:05
PROVIDERS: Surgery; Admitting Provider Family Medicine; Emergency Provider Student in an Organized Health Care Education/Training Program; PCP Family Medicine; Visit Provider Family Medicine
PROC: 0DJ08ZZ Inspection of Upper Intestinal Tract, Via Natural or Artificial Opening Endoscopic (ICD-10-PCS; CPT 43235; principal; 2022-12-30 13:00)
DX: R10.13 Epigastric pain (principal); R10.9 Unspecified abdominal pain; R63.4 Abnormal weight loss; E78.5 Hyperlipidemia, unspecified; E55.9 Vitamin D deficiency, unspecified; M06.9 Rheumatoid arthritis, unspecified; R10.31 Right lower quadrant pain; Z79.899 Other long term (current) drug therapy
CPT/HCPCS: 43239; 36415; 80048; 80053; 83690; 85025; 87635; 87636; 99285; C9803; G0378; J2405; U0003; U0005

== ENCOUNTER → 2023-02-01 12:16 | Outpatient (CLI) | payer OTHER, SELFPAY | PROVIDERS: PCP Family Medicine; Visit Provider Family Medicine | DX: R00.0 Tachycardia, unspecified (principal) | CPT/HCPCS: 93270 ==

== ENCOUNTER 2023-02-05 20:32 | Observation (INO) | payer OTHER, SELFPAY ==
[2023-02-05 20:33] VITALS: BP 143/101; PULSE 125; RESP 21; O2SAT 97; BMI 37.1
[2023-02-05 20:46] LABS: Microscopic, Urine URINE MICROSCOPIC (MICROSCOPIC)
[2023-02-05 20:50] LABS: Appearance,Urine CLEAR (Clear); Blood, Urine Negative (Negative); Color,Urine YELLOW (Yellow); Glucose,Urine (UA) Negative (Negative); Ketones,Urine Negative (Negative); Leukocyte Esterase,Urine Negative (Negative); Nitrate,Urine Negative (Negative); Protein,Urine TRACE (Negative); Specific Gravity, Urine >= 1.030 (1.005-1.030); Urobilinogen,Urine 0.2 EU/dl (0.2)
[2023-02-05 20:52] LABS: Bilirubin,Urine 1+ (Negative)
[2023-02-05 21:10] LABS: Bacteria,Urine Trace /lpf; Squamous Epithelial Cell,Urine Occasional #/hpf (0-5); WBC,Urine Occasional #/hpf (0-3)
[2023-02-05 21:30] VITALS: BP 152/108; PULSE 105; O2SAT 99
[2023-02-05 21:58] LABS: Basophils % 0.6 % (0.1-2.0); Eosinophils # 0.2 K/mm3 (0.0-0.4); Eosinophils % 2.6 % (0.1-12.0); Hematocrit 44.1 % (37.0-47.0); Hemoglobin 14.2 g/dL (12.2-16.2); Lymphocytes # 1.5 K/mm3 (0.7-4.5); Lymphocytes % 27.1 % (10-50); Mean Corpuscular HGB Conc 32.2 g/dL (31.8-35.4); Mean Corpuscular Hemoglobin 27.9 pg (27.0-31.2); Mean Corpuscular Volume 86.8 fl (81-99); Mean Platelet Volume 7.7 fl (7.4-10.4); Monocytes # 0.3 K/mm3 (0.1-1.0); Monocytes % 6.1 % (1.7-9.3); Neutrophils # 3.6 K/mm3 (1.8-7.8); Neutrophils % 63.6 % (37.0-80.0); Platelet Count 302 K/mm3 (142-424); Red Blood Count 5.08 M/mm3 (4.20-5.40); Red Cell Distribution Width 13.1 % (11.5-17.5); White Blood Count 5.6 K/mm3 (4.8-10.8)
[2023-02-05 22:01] VITALS: BP 151/117; PULSE 105; O2SAT 98
[2023-02-05 22:03] LABS: Alanine Aminotransferase 49 U/L (12-78); Albumin Level 4.1 g/dl (3.5-5.0); Albumin/Globulin Ratio 1.1 (1.1-1.8); Alkaline Phosphatase 75 U/L (38-126); Anion Gap 10.5 mEq/L (5-15); Aspartate Amino Transferase 44 U/L (14-36); Bilirubin,Total 0.9 mg/dl (0.2-1.3); Blood Urea Nitrogen 11 mg/dl (7-17); Calcium 8.7 mg/dl (8.4-10.2); Carbon Dioxide 25 mmol/L (22.0-30.0); Chloride 108 mmol/L (98-107); Creatinine Clearance Estimated 126 mL/min (50-200); Estimated Glomerular Filt Rate 62 ml/min (>60); GFR (African American) 75 ML/MIN (>60); Globulin 3.7 g/dL (1.3-3.2); Glucose 111 mg/dl (74-100); Lipase 94 U/L (23-300); Potassium 3.5 mmoL/L (3.5-5.1); Sodium 140 mmol/L (136-145); Total Protein,Serum 7.8 g/dl (6.3-8.2)
--- NOTE | 2023-02-05 22:27 | PC.NURSE ---
rounded on pt nothing needed adjust bed and gave a pillow, at bs
[2023-02-05 22:31] VITALS: BP 123/75; PULSE 108; O2SAT 98
--- NOTE | 2023-02-05 22:33 | HMH.EDGENADL ---
Discharge Plan Disposition Patient Disposition: Admitted Condition: Good Clinical Impressions Clinical Impression: Colitis, Intractable vomiting Discharge ED Provider: Fina Nelson General Adult HPI <Logan Ortega MD - Last Filed: 02/06/23 01:13> General Chief complaint: Abdominal Pain Stated complaint: abd pain Time Seen by Provider: 02/05/23 20:33 Mode of Arrival: Family Vehicle Source of Information: Patient Limitations: No Limitations Description of Symptoms (Recalled from ER Triage Doc. by RN): Pt stated that this has been going on for about a month. She was admitted last week. She states that she has abdominal pain, vomitting and diarrhea for the last two days. She states her pain is high History of Present Illness HPI narrative: Is a 37-year-old female with history of gastritis, gastroenteritis, PUD, chronic abdominal pain presenting with abdominal pain. Patient states that she was in the hospital 1 week prior to arrival. Admitted with likely gastritis. Upper endoscopy unconcerning for any peptic ulcer, but patient discharged. 2 days prior to arrival, patient began having pain again starts in her epigastrium, associated with nonbloody, nonbilious vomiting as well as green, watery diarrhea. Denies blood in her stool. Denies urinary symptoms, fevers or chills, shortness of breath, overlying skin changes, or any other concerns. Related Data Home Medications Medication Instructions Recorded Confirmed duloxetine 60 mg capsule,delayed 60 mg PO DAILY MOOD 11/13/22 02/06/23 release leflunomide 20 mg tablet 20 mg PO DAILY Rheumatoid Arthritis 11/13/22 02/06/23 linaclotide 72 mcg capsule 72 mcg PO DAILY Constipation 11/13/22 02/06/23 (Linzess) fluticasone propionate 50 1 - 2 spray intranasal DAILY PRN 12/29/22 02/06/23 mcg/actuation nasal allergies spray,suspension (Flonase Allergy Relief) hydroxyzine HCl 25 mg tablet 25 mg PO QIDP PRN Anxiety 12/29/22 02/06/23 duloxetine 30 mg capsule,delayed 30 mg PO DAILY MOOD 12/30/22 02/06/23 release pantoprazole 40 mg tablet,delayed 40 mg PO DAILY Acid Reflux 12/30/22 02/06/23 release prednisone 10 mg tablet 10 mg PO DAILYP PRN Rheumatoid 12/30/22 02/06/23 Arthritis peg 3350-electrolytes 236 240 ml PO Q10M . 02/06/23 02/06/23 gram-22.74 gram-6.74 gram-5.86 gram solution (GaviLyte-G) Previous Rx's Medication Instructions Recorded ondansetron 4 mg disintegrating 4 mg PO Q6H PRN nausea and 12/28/22 tablet vomiting 5 days #20 tabs promethazine 25 mg tablet 25 mg PO TID PRN nausea and 12/28/22 vomiting 5 days #20 tabs hyoscyamine sulfate 0.125 mg 0.125 mg PO QID PRN dyspepsia #60 12/31/22 tablet (Levsin) tabs tramadol 50 mg tablet 50 mg PO Q6H PRN pain #14 tabs 12/31/22 Allergies Allergy/AdvReac Type Severity Reaction Status Date / Time cefaclor [From CECLOR] Allergy Unknown Unknown Verified 02/03/23 08:20 allergy reaction metoclopramide [From REGLAN] Allergy Unknown Unknown Verified 02/03/23 08:20 allergy reaction sulfamethoxazole Allergy Unknown Unknown Verified 02/03/23 08:20 [From BACTRIM] allergy reaction trimethoprim [From BACTRIM] Allergy Unknown Unknown Verified 02/03/23 08:20 allergy reaction indomethacin Allergy Verified 02/03/23 08:20 PFS <Logan Ortega MD - Last Filed: 02/06/23 01:13> PFS Disclaimer: The information contained in this section may have been updated after the patient was seen, as this information can be updated by other users. Medical History (Updated 02/06/23 @ 02:13 by Fina Nelson DO) Ankylosing spondylitis Depression Endometriosis Hyperlipidemia (~11/22/17) Irritable bowel syndrome with constipation Migraines Obesity (BMI 35.0-39.9 without comorbidity) Rheumatoid arthritis Rheumatoid factor positive Sinusitis Vitamin D deficiency (~11/22/17) Surgical History History of cholecystectomy H
--- NOTE | 2023-02-05 22:36 | CT_ITS ---
PROCEDURE INFORMATION: Exam: CT Abdomen And Pelvis With Contrast Exam date and time: 02/05/2023 11:20 PM Age: 37 years old Clinical indication: Abdominal pain; Additional info: Epigsatric abd pain, intractable TECHNIQUE: Imaging protocol: Computed tomography of the abdomen and pelvis with contrast. Radiation optimization: All CT scans at this facility use at least one of these dose optimization techniques: automated exposure control; mA and/or kV adjustment per patient size (includes targeted exams where dose is matched to clinical indication); or iterative reconstruction. Contrast material: ISOVUE; Contrast volume: 75 ml; Contrast route: IV; REPORTING DATA: Count of CT and Cardiac NM exams in prior 12 months: This patient has received [address] and 0 known cardiac nuclear medicine studies in the 12 months prior to the current study. COMPARISON: CT ABDOMEN PELVIS W CON 12/26/2022 1:17 PM FINDINGS: Liver: Stable too small to characterize hypodensity in the right hepatic lobe posteriorly. Gallbladder and bile ducts: No calcified stones. No ductal dilation. Pancreas: No ductal dilation. No peripancreatic inflammatory changes. Spleen: Unremarkable. Adrenal glands: No mass. Kidneys and ureters: No hydronephrosis. Stomach and bowel: Thickening of the left hemicolon, colitis versus due to underdistention. Appendix: Unremarkable appendix. Intraperitoneal space: No free air. No ascites. Vasculature: No abdominal aortic aneurysm. Lymph nodes: No enlarged lymph nodes. Urinary bladder: Unremarkable as visualized. Reproductive: Hysterectomy. Bones/joints: No suspicious osseous lesion. No acute fracture. Soft tissues: Prominent probable follicle in the left ovary. IMPRESSION: Thickening of the left hemicolon, colitis versus due to underdistention.
[2023-02-05 23:00] VITALS: BP 132/88; PULSE 105; O2SAT 99
[2023-02-05 23:16] LABS: C-Reactive Protein 1.7 mg/L (0-4)
[2023-02-05 23:33] LABS: Lactic Acid 1.1 mmol/L (0.7-2.1)
[2023-02-05 23:51] LABS: HCG,Quantitative < 2 mIU/ml (0-5.42)
[2023-02-06 00:59] LABS: Erythrocyte Sedimentation Rate 13 mm/hr (0-20)
--- NOTE | 2023-02-06 02:07 | PC.NURSE ---
OBSERVATION ADMISSION TO [address] TRUONG WITH ADMITTING DX OF COLITIS.
--- NOTE | 2023-02-06 02:18 | PC.NURSE ---
Called report to gordon KWAN
[2023-02-06 02:27] VITALS: BP 127/79; PULSE 91; RESP 16; TEMP 36.7; O2SAT 99
[2023-02-06 02:37] VITALS: BP 137/98; PULSE 116; RESP 22; TEMP 36.9; O2SAT 98; BMI 37.4
[2023-02-06 04:00] VITALS: BP 136/98; PULSE 109; RESP 16; TEMP 36.8; O2SAT 92; BMI 37.4
--- NOTE | 2023-02-06 05:22 | PC.NURSE ---
pt arrived to floor via wheelchair @0077
--- NOTE | 2023-02-06 05:25 | PC.NURSE ---
NO ACUTE CHANGES THIS SHIFT. PT HAS RESTED INTERMITTENTLY. HAS C/O PAIN X1 AND NAUSEA X2. TREATED PER AUG. PT HAS NOT VOICED ANY OTHER NEEDS OR CONCERNS. VSS.
[2023-02-06 07:22] VITALS: BP 127/83; PULSE 85; RESP 18; TEMP 36.9; O2SAT 100
--- NOTE | 2023-02-06 08:07 | EXP.HP ---
History of Present Illness *Admission Date: 02/06/23 *Reason for visit:: Vomiting, diarrhea, abdominal pain *History of present illness: Is a 37-year-old female with history of gastritis, gastroenteritis, PUD, chronic abdominal pain presenting with abdominal pain. Patient states that she was in the hospital 1 week prior to arrival. Admitted with likely gastritis. Upper endoscopy unconcerning for any peptic ulcer, but patient discharged. 2 days prior to arrival, patient began having pain again starts in her epigastrium, associated with nonbloody, nonbilious vomiting as well as green, watery diarrhea. Denies blood in her stool. Denies urinary symptoms, fevers or chills, shortness of breath, overlying skin changes, or any other concerns. History was obtained via conversation with patient and . On arrival, patient hemodynamically stable, alert, oriented x4, appropriate, GCS 15, moving all extremities spontaneously, pupils equal and reactive to light. Full physical exam performed and significant for woman in no acute distress, but intermittently retching. Laying on her side. Abdomen soft, nontender, nondistended on my exam. Some right flank tenderness, but no overlying skin changes. No evidence of peritonitis. Cardiopulmonary exam within normal limits. Differential includes gastritis, gastroenteritis, enteritis, IBD, cholecystitis, appendicitis, nephrolithiasis, UTI, , functional abdominal pain, among others. Patient was given fluid bolus, famotidine, GI cocktail, Zofran for symptomatic management and correction of underlying abnormalities. Workup independently interpreted and significant for nonactionable CBC or chemistry. Kidney function within normal limits. Lactate negative. Lipase negative. negative urinalysis with bacteria and squamous cells, but no signs of inflammation. Imaging independently interpreted and demonstrates colitis, but no evidence of other acute intra-abdominal pathology. See radiology read for full review of final results. On reevaluation, patient still in pain, received more Toradol. Prior to final disposition, care handed off to oncoming physician, Dr. Omar Nelson DO: On my assessment of the patient, she complains of intractable nausea and abdominal pain. She was given IV Toradol, oral oxycodone, and IV Phenergan. This did not help her symptoms, and she states that she is still feeling very miserable. She states she is lightheaded because the pain is so severe. She failed a p.o. challenge and vomited after trying to eat crackers. Given this, I feel the patient would benefit from admission for IV hydration and symptomatic management. I had an interactive discussion with Dr. García who will admit the patient. She was admitted in stable condition. Patient was previously admitted 12/29 to 12/31/2022. She had an EGD on 12/30/2022 which showed gastritis. She had negative biopsies. She is scheduled for a colonoscopy and then to be followed up by GI next week. She improved after discharge and was actually able to work. She was seen in the office of [facility] on 02/01/2023 for hypertension. She was started on metoprolol for hypertension and tachycardia. She then started with nausea vomiting and diarrhea with abdominal pain on 02/04/2023. She states she did have a fever yesterday up to 102. She denies any upper respiratory symptoms. She was unable to eat or drink yesterday. With worsening abdominal pain she presented to the emergency room. In the emergency room she was found to be afebrile with an elevated blood pressure of 143/101 151/117 with improvement to 123/75. She did receive fluid boluses, Ketoralac IV morphine IV Zofran, tramadol, and promethazine. This a.m. patient states that her abdominal pain is not any better. She is nauseated. She has not vomited since having peanut butter crackers in the emergency room for trial feed. She has had no further diarrhea since admission. She has voided
--- NOTE | 2023-02-06 09:50 | PC.NURSE ---
COURTESY TECH NOTE; ROUNDED ON PT 0825, PT DENIED NEED FOR DRINK, ASSISTANCE WITH RESTROOM, NEED TO REPOSITION IN BED. CALL LIGHT WITHIN REACH, NO FURTHER REQUESTS AT THIS TIME GABRIEL GARCIA
[2023-02-06 10:07] LABS: Basophils % 0.4 % (0.1-2.0); Eosinophils # 0.1 K/mm3 (0.0-0.4); Eosinophils % 2.3 % (0.1-12.0); Hematocrit 40.4 % (37.0-47.0); Hemoglobin 12.8 g/dL (12.2-16.2); Lymphocytes # 1.4 K/mm3 (0.7-4.5); Lymphocytes % 27.7 % (10-50); Mean Corpuscular HGB Conc 31.6 g/dL (31.8-35.4); Mean Corpuscular Hemoglobin 27.8 pg (27.0-31.2); Mean Corpuscular Volume 87.9 fl (81-99); Mean Platelet Volume 7.7 fl (7.4-10.4); Monocytes # 0.4 K/mm3 (0.1-1.0); Monocytes % 7.6 % (1.7-9.3); Neutrophils # 3.2 K/mm3 (1.8-7.8); Neutrophils % 61.9 % (37.0-80.0); Platelet Count 262 K/mm3 (142-424); Red Blood Count 4.59 M/mm3 (4.20-5.40); Red Cell Distribution Width 13.1 % (11.5-17.5); White Blood Count 5.1 K/mm3 (4.8-10.8)
[2023-02-06 10:16] LABS: Anion Gap 7.7 mEq/L (5-15); Blood Urea Nitrogen 11 mg/dl (7-17); Calcium 8.1 mg/dl (8.4-10.2); Carbon Dioxide 25 mmol/L (22.0-30.0); Chloride 110 mmol/L (98-107); Creatinine Clearance Estimated 182 mL/min (50-200); Estimated Glomerular Filt Rate 94 ml/min (>60); GFR (African American) 113 ML/MIN (>60); Glucose 80 mg/dl (74-100); Potassium 3.7 mmoL/L (3.5-5.1); Sodium 139 mmol/L (136-145)
[2023-02-06 16:00] VITALS: BP 130/93; PULSE 114; RESP 18; TEMP 36.8; O2SAT 100
--- NOTE | 2023-02-06 17:35 | PC.NURSE ---
A&OX4. PT ON RA TOLERATING WELL. RESPIRATIONS REGULAR AND UNLABORED. LUNG SOUNDS CLEAR. NO COUGH NOTED. HEART RATE REGULAR. +2 PULSES NOTED THROUGHOUT. HAND LABEL OPERATOR EQUAL. ACTIVE BOWEL SOUNDS HEARD IN ALL 4 QUADRANTS. SOFT AND TENDER ABDOMEN. VOIDS INDEPENDENTLY PER BATHROOM. PT DENIES ANY DIARRHEA THUS FAR. WILL COLLECT SAMPLE WHEN SAMPLE IS PROVIDED. PAIN REPORTED 3 TIMES THUS FAR AND NAUSEA REPORTED 3 TIMES THUS FAR. MEDICATIONS GIVEN PER AUG. ON REASSESSMENT EACH TIME, PAIN AND NAUSEA WERE TOLERABLE. LR INFUSING AT 100ML/HR. NO EDEMA NOTED THROUGHOUT. BED IN LOWEST POSITION. CALL LIGHT WITHIN REACH. VSS.
[2023-02-06 20:00] VITALS: BP 137/98; PULSE 97; RESP 18; TEMP 36.6; O2SAT 98
[2023-02-07 04:00] VITALS: BP 138/86; PULSE 102; RESP 18; TEMP 36.9; O2SAT 94; BMI 38.0
[2023-02-07 07:58] VITALS: BP 164/88; PULSE 98; RESP 18; TEMP 36.4; O2SAT 98
--- NOTE | 2023-02-07 08:08 | PC.NURSE ---
tech note: nurse made aware of patient's 0800 vital signs
--- NOTE | 2023-02-07 08:26 | EXP.ACUTE.PN ---
Subjective *Date: 02/07/23 *Time: 08:36 Interval history: Patient feels miserable today. She states pain medicine helps for about an hour. She continues to have nausea and vomiting. She tried clear liquids after which she immediately vomited. Bowels have not moved since being admitted. She has lower abdominal discomfort which is almost constant. She denies reflux. She is ambulated to the bathroom. She has had decreased urinary output and urine appears dark. Medical Exam Vital signs and Labs for Last 24 Hours: Vital Signs Temp Pulse Resp BP Pulse Ox O2 Del Method 02/07/23 07:58 97.6 F 98 H 18 164/88 H 98 Room Air 02/07/23 07:00 Room Air 02/07/23 05:00 Room Air 02/07/23 04:00 98.4 F 102 H 18 138/86 94 L Room Air 02/07/23 03:00 Room Air 02/07/23 01:00 Room Air 02/06/23 20:00 Room Air 02/06/23 22:56 Room Air 02/06/23 21:00 Room Air 02/06/23 20:00 97.8 F 97 H 18 137/98 H 98 Room Air 02/06/23 18:46 Room Air 02/06/23 17:00 Room Air 02/06/23 16:00 98.2 F 114 H 18 130/93 H 100 02/06/23 15:00 Room Air 02/06/23 13:00 Room Air 02/06/23 11:00 Room Air 02/06/23 09:00 Room Air Intake and Output 02/06/23 02/07/23 02/07/23 19:59 03:59 11:59 Intake Total 1276 / 1276 1179 / 2455 Output Total 0 / 0 Balance 1276 / 1276 1179 / 2455 Intake: Intake, Oral Amount 600 / 600 270 / 870 Intake, Total IV Amount 676 / 676 909 / 1585 Lactated Ringers 1000ML 1,000 676 / 676 909 / 1585 ml @ 100 mls/hr IV .Q10H [facility] Rx #:[id number] Output: Output, Urine Amount 0 / 0 Other: Number of Unmeasured Voids 0 Weight 237 lb 1 oz Patient Weight 02/07/23 11:59 Weight 237 lb 1 oz Laboratory Results - last 24 hr 02/06/23 09:53: WBC 5.1, RBC 4.59, Hgb 12.8, Hct 40.4, MCV 87.9, MCH 27.8, MCHC 31.6 L, RDW 13.1, Plt Count 262, MPV 7.7, Neut % (Auto) 61.9, Lymph % (Auto) 27.7, [place] % (Auto) 7.6, Eos % (Auto) 2.3, Baso % (Auto) 0.4, Neut # (Auto) 3.2, Lymph # (Auto) 1.4, [place] # (Auto) 0.4, Eos # (Auto) 0.1, Baso # (Auto) 0.0, Sodium 139, Potassium 3.7, Chloride 110 H, Carbon Dioxide 25, Anion Gap 7.7, BUN 11, Creatinine 0.70 D, Estimated Creat Clear 182, Estimated GFR 94, Est GFR ( Amer) 113 D, Glucose 80 D, Calcium 8.1 L I & O for Labs for Last 24 Hours: Intake & Output 02/04/23 02/05/23 02/06/23 02/07/23 11:59 11:59 11:59 11:59 Intake Total 0 / 0 2455 / 2455 Output Total 0 / 0 0 / 0 Balance 0 / 0 2455 / 2455 Weight 232 lb 14.4 oz 237 lb 1 oz Constitutional: Present no acute distress Respiratory: Present CTA bilaterally (Anteriorly and posteriorly) Cardiac: Present Regular Rate and Regular Rhythm GI: Present soft, tenderness (In all lower quadrants) and normal bowel sounds; Absent distention or rigidity Extremities: Absent tenderness or edema Neuro: Present alert and oriented x 3 Assessment and Plan *Assessment and plan (1) Intractable abdominal pain: Status: Acute Category: Medical Code(s): R10.9 - Unspecified abdominal pain (2) Nausea: Status: Acute Category: Medical Code(s): R11.0 - Nausea (3) Vomiting and diarrhea: Status: Acute Category: Medical Code(s): R11.10 - Vomiting, unspecified; R19.7 - Diarrhea, unspecified (4) Headache: Status: Acute Category: Medical Code(s): R51.9 - Headache, unspecified Plan Continue current care. Dr. Dior entry - Saw patient, she was unable to tolerate clear liquids this morning, will change Phenergan to IV administration.
[2023-02-07 16:00] VITALS: BP 151/92; PULSE 105; RESP 18; TEMP 36.4; O2SAT 97
--- NOTE | 2023-02-07 16:01 | PC.NURSE ---
tech note: nurse made aware of 1600 vital signs.
[2023-02-07 20:00] VITALS: BP 149/93; PULSE 101; RESP 18; TEMP 36.9; O2SAT 99
[2023-02-08 04:00] VITALS: BP 133/84; PULSE 101; RESP 18; TEMP 37.3; O2SAT 98; BMI 38.0
[2023-02-08 06:27] LABS: Basophils % 0.6 % (0.1-2.0); Eosinophils # 0.1 K/mm3 (0.0-0.4); Eosinophils % 2.2 % (0.1-12.0); Hematocrit 35.2 % (37.0-47.0); Hemoglobin 11.5 g/dL (12.2-16.2); Lymphocytes # 1.5 K/mm3 (0.7-4.5); Lymphocytes % 23.4 % (10-50); Mean Corpuscular HGB Conc 32.8 g/dL (31.8-35.4); Mean Corpuscular Hemoglobin 28.3 pg (27.0-31.2); Mean Corpuscular Volume 86.2 fl (81-99); Mean Platelet Volume 7.8 fl (7.4-10.4); Monocytes # 0.5 K/mm3 (0.1-1.0); Monocytes % 7.2 % (1.7-9.3); Neutrophils # 4.2 K/mm3 (1.8-7.8); Neutrophils % 66.6 % (37.0-80.0); Platelet Count 248 K/mm3 (142-424); Red Blood Count 4.08 M/mm3 (4.20-5.40); Red Cell Distribution Width 12.8 % (11.5-17.5); White Blood Count 6.3 K/mm3 (4.8-10.8)
[2023-02-08 06:28] LABS: Alanine Aminotransferase 35 U/L (12-78); Albumin Level 3.2 g/dl (3.5-5.0); Albumin/Globulin Ratio 1.1 (1.1-1.8); Alkaline Phosphatase 51 U/L (38-126); Amylase 46 U/L (30-110); Anion Gap 5.7 mEq/L (5-15); Aspartate Amino Transferase 31 U/L (14-36); Bilirubin,Total 1.1 mg/dl (0.2-1.3); Blood Urea Nitrogen 8 mg/dl (7-17); Calcium 8.2 mg/dl (8.4-10.2); Carbon Dioxide 28 mmol/L (22.0-30.0); Chloride 110 mmol/L (98-107); Creatinine Clearance Estimated 162 mL/min (50-200); Estimated Glomerular Filt Rate 80 ml/min (>60); GFR (African American) 97 ML/MIN (>60); Globulin 2.8 g/dL (1.3-3.2); Glucose 83 mg/dl (74-100); Lipase 39 U/L (23-300); Potassium 3.7 mmoL/L (3.5-5.1); Sodium 140 mmol/L (136-145)
[2023-02-08 07:13] VITALS: BP 137/93; PULSE 95; RESP 16; TEMP 36.6; O2SAT 98
--- NOTE | 2023-02-08 08:12 | EXP.ACUTE.PN ---
Subjective *Date: 02/08/23 *Time: 08:48 Interval history: Patient is feeling a little better today. No vomiting and has tolerated some clear liquids. Had to have dilaudid last night and this helped with the pain and she was able to rest. Still having pain in the lower abdomen. Medical Exam Vital signs and Labs for Last 24 Hours: Vital Signs Temp Pulse Resp BP Pulse Ox O2 Del Method 02/08/23 07:13 97.8 F 95 H 16 137/93 H 98 Room Air 02/08/23 06:59 Room Air 02/08/23 05:00 Room Air 02/08/23 04:00 99.2 F 101 H 18 133/84 98 Room Air 02/08/23 03:00 Room Air 02/08/23 01:00 Room Air 02/07/23 20:00 Room Air 02/07/23 23:00 Room Air 02/07/23 21:00 Room Air 02/07/23 20:00 98.4 F 101 H 18 149/93 H 99 Room Air 02/07/23 16:00 97.6 F 105 H 18 151/92 H 97 Room Air Intake and Output 02/07/23 02/08/23 02/08/23 19:59 03:59 11:59 Intake Total 360 / 1636 1276 / 1636 Output Total 50 / 50 0 / 50 Balance 310 / 1586 0 / 1586 1276 / 1586 Intake: Intake, Oral Amount 360 / 660 300 / 660 Intake, Total IV Amount 976 / 976 Lactated Ringers 1000ML 1,000 976 / 976 ml @ 100 mls/hr IV .Q10H [facility] Rx #:[id number] Output: Output, Urine Amount 50 / 50 0 / 50 Other: Number of Unmeasured Voids 0 1 Weight 237 lb 1.362 oz Patient Weight 02/08/23 11:59 Weight 237 lb 1.362 oz Laboratory Results - last 24 hr 02/08/23 05:50: WBC 6.3, RBC 4.08 L, Hgb 11.5 L, Hct 35.2 L, MCV 86.2, MCH 28.3, MCHC 32.8, RDW 12.8, Plt Count 248, MPV 7.8, Neut % (Auto) 66.6, Lymph % (Auto) 23.4, [place] % (Auto) 7.2, Eos % (Auto) 2.2, Baso % (Auto) 0.6, Neut # (Auto) 4.2, Lymph # (Auto) 1.5, [place] # (Auto) 0.5, Eos # (Auto) 0.1, Baso # (Auto) 0.0, Sodium 140, Potassium 3.7, Chloride 110 H, Carbon Dioxide 28, Anion Gap 5.7, BUN 8 D, Creatinine 0.80, Estimated Creat Clear 162, Estimated GFR 80, Est GFR ( Amer) 97, Glucose 83, Calcium 8.2 L, Total Bilirubin 1.1, AST 31 D, ALT 35 D, Alkaline Phosphatase 51, Total Protein 6.0 L, Albumin 3.2 L, Globulin 2.8, Albumin/Globulin Ratio 1.1, Amylase 46, Lipase 39 I & O for Labs for Last 24 Hours: Intake & Output 02/05/23 02/06/23 02/07/23 02/08/23 11:59 11:59 11:59 11:59 Intake Total 0 / 0 2455 / 2455 1636 / 1636 Output Total 0 / 0 0 / 0 50 / 50 Balance 0 / 0 2455 / 2455 1586 / 1586 Weight 232 lb 14.4 oz 237 lb 1 oz 237 lb 1.362 oz Constitutional: Present no acute distress Respiratory: Present CTA bilaterally (Anteriorly and posteriorly) Cardiac: Present Regular Rate and Regular Rhythm GI: Present soft, tenderness (In all lower quadrants) and normal bowel sounds; Absent distention or rigidity Extremities: Absent tenderness or edema Neuro: Present alert and oriented x 3 Assessment and Plan *Assessment and plan (1) Intractable abdominal pain: Status: Acute Category: Medical Code(s): R10.9 - Unspecified abdominal pain (2) Nausea: Status: Acute Category: Medical Code(s): R11.0 - Nausea (3) Vomiting and diarrhea: Status: Acute Category: Medical Code(s): R11.10 - Vomiting, unspecified; R19.7 - Diarrhea, unspecified (4) Headache: Status: Acute Category: Medical Code(s): R51.9 - Headache, unspecified Plan Patient improving. Will discuss further care with Dr. Dior. Dr. Dior entry - Saw patient, agree with above note. Will resume Metoprolol today, will attempt full liquids for lunch.
[2023-02-08 10:14] VITALS: BMI 38.0
[2023-02-08 14:48] VITALS: BP 145/82; PULSE 103; RESP 16; TEMP 36.8; O2SAT 95
--- NOTE | 2023-02-08 18:34 | PC.NURSE ---
Patient has rested throughout day and states that she has had better pain control today.
[2023-02-08 20:00] VITALS: BP 142/95; PULSE 96; RESP 18; TEMP 36.8; O2SAT 97
[2023-02-09 04:00] VITALS: BMI 37.1
--- NOTE | 2023-02-09 05:15 | PC.NURSE ---
Went in to check on patient for RN rounding. She woke up and stated she needed something for pain. Offered patient non-pharmacological interventions and non-narcotic medications. Patient refused stating, she has 1mg of Dilaudid and Phenergan that she wants instead.
[2023-02-09 07:15] VITALS: BP 146/95; PULSE 95; RESP 16; TEMP 36.6; O2SAT 98
--- NOTE | 2023-02-09 08:27 | EXP.ACUTE.PN ---
Subjective *Date: 02/09/23 *Time: 08:48 Interval history: Patient states she is not feeling well this am. She has vomited and her stomach is hurting. She is requiring IV pain medication and antiemetics. She has only had clear liquids. Medical Exam Vital signs and Labs for Last 24 Hours: Vital Signs Temp Pulse Resp BP Pulse Ox O2 Del Method 02/09/23 07:15 97.8 F 95 H 16 146/95 H 98 Room Air 02/09/23 06:09 Room Air 02/09/23 05:00 Room Air 02/09/23 03:00 Room Air 02/09/23 00:37 Room Air 02/08/23 23:00 Room Air 02/08/23 21:00 Room Air 02/08/23 20:00 Room Air 02/08/23 20:00 98.3 F 96 H 18 142/95 H 97 Room Air 02/08/23 14:48 98.3 F 103 H 16 145/82 H 95 Room Air Intake and Output 02/08/23 02/09/23 02/09/23 19:59 03:59 11:59 Intake Total 1020 / 1560 540 / 1560 Output Total 0 / 0 0 / 0 Balance 1020 / 1560 0 / 1560 540 / 1560 Intake: Intake, Oral Amount 1020 / 1560 540 / 1560 Output: Output, Urine Amount 0 / 0 0 / 0 Other: Number of Unmeasured Voids 1 1 Weight 231 lb 2 oz Patient Weight 02/09/23 11:59 Weight 231 lb 2 oz I & O for Labs for Last 24 Hours: Intake & Output 02/06/23 02/07/23 02/08/23 02/09/23 11:59 11:59 11:59 11:59 Intake Total 0 / 0 2455 / 2455 1636 / 1636 1560 / 1560 Output Total 0 / 0 0 / 0 50 / 50 0 / 0 Balance 0 / 0 2455 / 2455 1586 / 1586 1560 / 1560 Weight 232 lb 14.4 oz 237 lb 1 oz 237 lb 1.362 oz 231 lb 2 oz Constitutional: Present no acute distress Respiratory: Present CTA bilaterally (Anteriorly and posteriorly) Cardiac: Present Regular Rate and Regular Rhythm GI: Present soft, tenderness (In all lower quadrants) and normal bowel sounds; Absent distention or rigidity Extremities: Absent tenderness or edema Neuro: Present alert and oriented x 3 Assessment and Plan *Assessment and plan (1) Intractable abdominal pain: Status: Acute Category: Medical Code(s): R10.9 - Unspecified abdominal pain (2) Nausea: Status: Acute Category: Medical Code(s): R11.0 - Nausea (3) Vomiting and diarrhea: Status: Acute Category: Medical Code(s): R11.10 - Vomiting, unspecified; R19.7 - Diarrhea, unspecified (4) Headache: Status: Acute Category: Medical Code(s): R51.9 - Headache, unspecified Plan Will discuss further care with Dr. Dior. Can possibly try full liquids for lunch. Dr. Dior entry - Saw patient, she has had no diarrhea here but continues to have nausea and vomiting along with lower abdominal pain. She has been unable to tolerate clear liquids. Will request GI evaluation.
[2023-02-09 12:49] VITALS: TEMP 37.8
[2023-02-09 16:00] VITALS: BP 140/86; PULSE 112; RESP 20; TEMP 36.6; O2SAT 98
--- NOTE | 2023-02-09 16:15 | PC.NURSE ---
tried to call report to [facility]. nurse unable to take call at this moment. left a call back number.
--- NOTE | 2023-02-13 23:30 | EXP.DC.SUM ---
General Admission date:: 02/06/23 Discharge date: 02/13/23 HPI HPI HPI: Is a 37-year-old female with history of gastritis, gastroenteritis, PUD, chronic abdominal pain presenting with abdominal pain. Patient states that she was in the hospital 1 week prior to arrival. Admitted with likely gastritis. Upper endoscopy unconcerning for any peptic ulcer, but patient discharged. 2 days prior to arrival, patient began having pain again starts in her epigastrium, associated with nonbloody, nonbilious vomiting as well as green, watery diarrhea. Denies blood in her stool. Denies urinary symptoms, fevers or chills, shortness of breath, overlying skin changes, or any other concerns. History was obtained via conversation with patient and . On arrival, patient hemodynamically stable, alert, oriented x4, appropriate, GCS 15, moving all extremities spontaneously, pupils equal and reactive to light. Full physical exam performed and significant for woman in no acute distress, but intermittently retching. Laying on her side. Abdomen soft, nontender, nondistended on my exam. Some right flank tenderness, but no overlying skin changes. No evidence of peritonitis. Cardiopulmonary exam within normal limits. Differential includes gastritis, gastroenteritis, enteritis, IBD, cholecystitis, appendicitis, nephrolithiasis, UTI, , functional abdominal pain, among others. Patient was given fluid bolus, famotidine, GI cocktail, Zofran for symptomatic management and correction of underlying abnormalities. Workup independently interpreted and significant for nonactionable CBC or chemistry. Kidney function within normal limits. Lactate negative. Lipase negative. negative urinalysis with bacteria and squamous cells, but no signs of inflammation. Imaging independently interpreted and demonstrates colitis, but no evidence of other acute intra-abdominal pathology. See radiology read for full review of final results. On reevaluation, patient still in pain, received more Toradol. Prior to final disposition, care handed off to oncoming physician, Dr. Omar Nelson, DO: On my assessment of the patient, she complains of intractable nausea and abdominal pain. She was given IV Toradol, oral oxycodone, and IV Phenergan. This did not help her symptoms, and she states that she is still feeling very miserable. She states she is lightheaded because the pain is so severe. She failed a p.o. challenge and vomited after trying to eat crackers. Given this, I feel the patient would benefit from admission for IV hydration and symptomatic management. I had an interactive discussion with Dr. García who will admit the patient. She was admitted in stable condition. Patient was previously admitted 12/29 to 12/31/2022. She had an EGD on 12/30/2022 which showed gastritis. She had negative biopsies. She is scheduled for a colonoscopy and then to be followed up by GI next week. She improved after discharge and was actually able to work. She was seen in the office of [facility] on 02/01/2023 for hypertension. She was started on metoprolol for hypertension and tachycardia. She then started with nausea vomiting and diarrhea with abdominal pain on 02/04/2023. She states she did have a fever yesterday up to 102. She denies any upper respiratory symptoms. She was unable to eat or drink yesterday. With worsening abdominal pain she presented to the emergency room. In the emergency room she was found to be afebrile with an elevated blood pressure of 143/101 151/117 with improvement to 123/75. She did receive fluid boluses, Ketoralac IV morphine IV Zofran, tramadol, and promethazine. This a.m. patient states that her abdominal pain is not any better. She is nauseated. She has not vomited since having peanut butter crackers in the emergency room for trial feed. She has had no further diarrhea since admission. She has voided once this a.m. since admission. Abdominal/pelvic CT rev
== END 2023-02-09 17:43 | disposition short-term general hospital (02) ==
LOC: ER 02-06 00:44 → 2ND 02-06 02:13
PROVIDERS: Emergency Medicine; Admitting Provider Family Medicine; Emergency Provider Emergency Medicine; PCP Family Medicine; Visit Provider Family Medicine
DX: R10.9 Unspecified abdominal pain (principal); R11.0 Nausea; R11.10 Vomiting, unspecified; R19.7 Diarrhea, unspecified; R51.9 Headache, unspecified; Z79.899 Other long term (current) drug therapy
CPT/HCPCS: 36415; 74177; 80048; 80053; 81001; 82150; 83605; 83690; 84702; 85025; 85651; 86140; 99285; G0378; J2405; Q9967

== ENCOUNTER → 2023-02-15 08:48 | Outpatient (CLI) | payer OTHER, SELFPAY ==
--- NOTE | 2023-02-15 08:54 | CA_ITS ---
FINAL REPORT TECHNIQUE: Sonographic images of the veins of the right upper extremity were obtained from axilla to antecubital fossa. Additionally, images of the internal jugular vein and subclavian vein were also obtained. CLINICAL HISTORY: PT HAD AN IV LEFT AC 1 WEEK AGO,PT HAS SWELLING AND REDNESS LEFT BICEP X SEVERAL DAYS COMPARISON: None FINDINGS: Thrombus is seen in the left cephalic vein. Other deep veins of the left upper extremity are unremarkable. IMPRESSION: Left cephalic vein thrombus. Reviewed, Interpreted and Dictated by Travon Aguilar III, MD Transcribed by Sona Busby Authenticated and [facility]
== END ==
PROVIDERS: PCP Family Medicine; Visit Provider Physician Assistant
DX: M79.602 Pain in left arm (principal)
CPT/HCPCS: 93971

== ENCOUNTER → 2023-02-16 13:34 | Outpatient (CLI) | payer OTHER, SELFPAY ==
--- NOTE | 2023-02-16 | CA_ITS ---
APPROVED REPORT EXAM: Comprehensive 2D, Doppler, and color-flow Echocardiogram Digital Production Operator: Anne-Marie Blandon CRT Ht: 5 ft 6 in Wt: 220lbs BSA: 2.08 BP: 127/83 mmHg Indications: Chest Pain, Obesity, Palpitations, Fatigue, Hyperlipidemia, Hypertension/HDD 2D Dimensions LVOT 1.95 cm (M/F) 1.5-2.5 LA Volume 21.80 mL LA Volume Index 10.48 mL/m2 (M/F) 16-34 M-Mode Dimensions RVDd 2.29 cm (0.9-2.6) LA Diam 2.42 cm (1.9-4.0) LVDd 4.59 cm (3.5-5.7) Ao Diam 4.13 cm (2.0-3.7) LVDs 3.24 cm (3.5-5.7) IVSd 1.35 cm (0.6-1.1) PWd 0.74 cm (0.6-1.1) EF (Teich) 56.40% FS 29.40% EDV (Teich) 96.80 mL TAPSE 1.91 (<1.7) ESV (Teich) 42.20 mL LV Diastology E Decel Time 190.00 (160-240 msec) E/A Ratio 1.1 MED E' 8.70 (< 7 cm/sec) MED A' 8.60 cm/s E'/MED E' Ratio 8.59 (>14) LAT E' 15.50 (<10 cm/sec) LAT A' 10.70 cm/s E/LAT E' Ratio 4.82 (>14) Aortic Valve AO Peak GR. 6.10 mmHg Mitral Valve MV E Max Eusebio. 75.00 (40-130 cm/s) MV A Velocity 69.00 (40-130 cm/s) E/A Ratio 1.07 MV Decel. Time 190.00 (160-240 ms) MV PHT 56.00 ms Pulmonary Valve PV Peak Velocity 90.00 (50-150 cm/s) Tricuspid Valve TR P. Velocity 231.00 cm/s RAP Estimate 10.00 mmHg RVSP 31.40 mmHg Left Ventricle The left ventricle is normal size. The left ventricular systolic function is normal. The left ventricular ejection fraction is within the normal range. There is normal left ventricular wall thickness. There is normal LV segmental wall motion. The left ventricular diastolic function is normal. LVEF is 60%. Right Ventricle The right ventricle is normal size. The right ventricular systolic function is normal. Atria The left atrium size is normal. There is no Doppler evidence of interatrial shunt. Aortic Valve The aortic valve is trileaflet. The aortic valve opens well. There is no aortic valvular stenosis. No aortic regurgitation is present. Mitral Valve The mitral valve is normal in structure. No evidence of mitral valve stenosis. There is no mitral valve regurgitation noted. Tricuspid Valve The tricuspid valve is thin and pliable. Trace tricuspid regurgitation. There is insufficient TR jet to estimate RVSP. Pulmonic Valve The pulmonary valve is normal in structure. Trace pulmonic regurgitation. Great Vessels The aortic root is normal in size. The ascending aorta is normal in size. IVC is normal in size and collapses >50% with inspiration. Pericardium There is no pericardial effusion. Other Information Study Quality: Adequate Conclusion Normal biventricular systolic function. No significant valvular disease. Electronically signed by : Deirdre Gray, 02/17/2023 19:30:25
== END ==
PROVIDERS: PCP Family Medicine; Visit Provider Family Medicine
DX: R00.0 Tachycardia, unspecified (principal); I10 Essential (primary) hypertension
CPT/HCPCS: 93306

== ENCOUNTER 2023-02-22 09:28 | Day surgery (SDC) | payer OTHER, SELFPAY ==
[2023-02-03 08:20] VITALS: BMI 37.1
[2023-02-22] VITALS (7 sets, daily range): BP systolic 101–140; BP diastolic 62–90; PULSE 76–89; RESP 16–18; TEMP 36.2–36.8; O2SAT 95–99
--- NOTE | 2023-02-22 11:57 | EXP.ANES.CKL ---
[facility] Disclaimer: The information contained in this section may have been updated after the patient was seen, as this information can be updated by other users. Medical History Acute bronchopneumonia Ankylosing spondylitis Anxiety Back pain Body mass index (BMI) of 35.0 to 35.9 in adult Depression Endometriosis Headache Hyperlipidemia (~11/22/17) Hyperlipidemia Hypertension Irritable bowel syndrome with constipation Migraines Neck pain Obesity (BMI 35.0-39.9 without comorbidity) Obesity with body mass index (BMI) of 35.0 to 39.9 without comorbidity Rheumatoid arthritis Rheumatoid factor positive Sinusitis Sinusitis Viral bronchitis Viral gastroenteritis Vitamin D deficiency (~11/22/17) Vitamin D deficiency Surgical History History of cholecystectomy History of colonoscopy History of hysterectomy History of laparotomy History of tubal ligation Hx of dilation and curettage Family History Other Cancer Coronary artery disease Hypertension No significant family history Stroke 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 Smoking Status: Never smoker alcohol intake: never substance use type: denies use current occupational status: employed Travel in the last 8 weeks: None adopted: No caregiver/support person: No household members: spouse and children housing: house lives independently: No marital status: education level: college service: No senior living: No caffeine: Yes special sandi needs: No agree to transfusion: No do you feel safe at home: Yes victim of physical abuse: No victim of emotional abuse: No victim of sexual abuse: No would you like helpful sources: No [facility] Anesthesia Checklist Patient Identification Patient Identification: Arm Band and Verbal (Name & ) Structural Data Admitted From: Home Planned Operative Procedure/s: Colonoscopy Consent for Planned Operative Procedure(s) Verified: Yes NPO Status Verified Time NPO: 00:00 Airway Assessment Mallampati Score:: Class II C-Spine Mobility Assessed: Yes TMJ Mobility Assessed: Yes Dentition: Good Dentition Neurological Assessment Level of Consciousness: Awake Hx Seizures: No Numbness or tingling in extremities: No Anesthesia Plan Anesthesia Risk discussed: Yes Anesthesia Plan: Verified ASA Class: II Anesthesia Type: MAC
--- NOTE | 2023-02-22 12:26 | HMH.SCOPE ---
Procedure: Date: 02/22/23 Patient Date of :: 1985 Procedure Performed:: Colonoscopy Indications:: The patient is a 37 year old who was recently admitted to the hospital with abdominal pain. The patient had a CT of the abdomen and pelvis that reported thickening of the left hemicolon, colitis vs underdistension. The patient has had resolution of abdominal pain after using antibiotics. The patient had a colonoscopy in 2014 that she reports with Dr. Arcos at [facility] for conostipation that was normal. Performing Provider:: Soto Sales MD Referring Provider:: Sally Cordova PA-C Sedation:: See RN records Procedure:: After placing the patient in the left lateral decubitus position, the colonoscopy was gently inserted into the rectum and under direct visualization advanced to the cecum which was identified by transillumination in the right lower quadrant, identification of the ileocecal valve, appendiceal orifice, and cecal strap. Color, texture, mucosa, and anatomy of the colon were carefully examined with the scope. Findings:: Anal canal: normal Rectum: normal Sigmoid colon: Fair preparation. Normal appearing colon. Biopsies obtained Descending colon: Fair preparation. Normal appearing colon. Biopsies obtained Splenic flexure: normal Transverse colon: normal without polyps or inflammatory changes Hepatic flexure: fair preparation. Sessile polyp with mucus cap 6-7 mm in size. Removed with cold snare polypectomy Ascending colon: fair preparation Cecum: fair preparation Terminal ileum: not visualized Impression: Polyp of the hepatic flexure Fair bowel preparation Recommendations:: Await pathology results Repeat colonoscopy in 3 years Complications:: None Estimated blood obtained (mL): 0 Colonoscopy Component Colonoscopy Component Was a colonoscopy performed during today's procedure?: Yes Recommended follow up colonoscopy of at least 10 years?: Yes
== END 2023-02-22 13:26 | disposition home or self-care (01) ==
PROVIDERS: PCP Family Medicine; Visit Provider Internal Medicine
PROC: 0DJD8ZZ Inspection of Lower Intestinal Tract, Via Natural or Artificial Opening Endoscopic (ICD-10-PCS; CPT 45378; principal; 2023-02-22 11:00)
DX: K63.5 Polyp of colon (principal); R10.9 Unspecified abdominal pain
CPT/HCPCS: 45385; J2704

== ENCOUNTER → 2023-03-09 12:02 | Outpatient (CLI) | payer OTHER, SELFPAY ==
[2023-03-09 12:13] LABS: Coronavirus 19, PCR Not Detected (NotDetected); Influenza A, PCR Not Detected (NotDetected); Influenza B, PCR Not Detected (NotDetected)
== END ==
PROVIDERS: PCP Physician Assistant; Visit Provider Physician Assistant
DX: Z20.822 Contact with and (suspected) exposure to COVID-19 (principal)
CPT/HCPCS: 87636

== ENCOUNTER → 2023-03-28 07:01 | Outpatient (CLI) | payer OTHER, SELFPAY ==
--- NOTE | 2023-03-28 | CA_ITS ---
FINAL REPORT CLINICAL HISTORY: RT CALF PAIN POST MUSCLE CRAMP FINDINGS: DUPLEX VENOUS SONOGRAPHY OF THE RIGHT LOWER EXTREMITY Multiple transverse and longitudinal scans were performed of the femoropopliteal deep venous system, with augmentation and compression maneuvers. Normal phasic flow was noted in the visualized deep venous system. No intraluminal increased echogenicity is noted to suggest thrombus. There is normal compression and augmentation of the venous structures. No abnormal venous collaterals are seen. IMPRESSION: No evidence of deep venous thrombosis of the right lower extremity. Reviewed, Interpreted and Dictated by Alondra Smith MD Transcribed by Marycarmen Mckenzie Authenticated and [facility]
--- NOTE | 2023-03-28 07:31 | US_ITS ---
FINAL REPORT TECHNIQUE: Right lower extremity ultrasound CLINICAL HISTORY: RIGHT CALF PAIN COMPARISON: None FINDINGS: ULTRASOUND RIGHT CALF: Ultrasound examination of the calf of the right leg fails to reveal any evidence of a subcutaneous fluid collection. There is an area of hyperechogenicity in the subcutaneous soft tissues, a nonspecific finding. No evidence of a focal hematoma is seen. IMPRESSION: No evidence of a subcutaneous fluid collection. Reviewed, Interpreted and Dictated by Alondra Smith MD Transcribed by Justine Walker Authenticated and [facility]
== END ==
PROVIDERS: PCP Physician Assistant; Visit Provider Nurse Practitioner Family
DX: M79.661 Pain in right lower leg (principal)
CPT/HCPCS: 76882; 93971

== ENCOUNTER 2023-07-06 19:22 | Emergency (ER) | payer OTHER, SELFPAY ==
[2023-07-06] VITALS (8 sets, daily range): BP systolic 117–149; BP diastolic 71–123; PULSE 85–108; RESP 12–18; TEMP 36.7–37.1; O2SAT 97–100; BMI 37.1
--- NOTE | 2023-07-06 19:21 | ECG_ITS ---
APPROVED REPORT Exam: Resting ECG HR:104 bpm ECG Measurements Heart Rate 104 AXES UT 183 P 62 QRSd 106 QRS 64 QT 343 T 32 QTc 403 Conclusion SINUS TACHYCARDIA INCOMPLETE RIGHT BUNDLE BRANCH BLOCK [90+ ms QRS DURATION, TERMINAL R IN V1/V2, 40+ ms S IN I/aVL/V4/V5/V6] ABNORMAL RHYTHM ECG UNCONFIRMED REPORT Electronically signed by : Giovani Webster MD 07/08/2023 10:09:28
--- NOTE | 2023-07-06 19:47 | XR_ITS ---
PROCEDURE INFORMATION: Exam: XR Chest Exam date and time: 07/06/2023 7:55 PM Age: 37 years old Clinical indication: Dyspnea TECHNIQUE: Imaging protocol: Radiologic exam of the chest. Views: 1 view. COMPARISON: CR XR CHEST 2V 07/19/2022 5:13 PM FINDINGS: Lungs: Unremarkable. No consolidation. Pleural spaces: Unremarkable. No pleural effusion. No pneumothorax. Heart/Mediastinum: Unremarkable. No cardiomegaly. Bones/joints: Unremarkable. IMPRESSION: Stable chest x-ray with no acute disease.
--- NOTE | 2023-07-06 19:49 | [facility].EDCP ---
Discharge Plan Disposition Patient Disposition: Home, Self-Care Prescriptions Prescriptions: No Action fluticasone propionate [Flonase Allergy Relief] 50 mcg/actuation spray,suspension 1 - 2 spray intranasal DAILY PRN (Reason: allergies) Rx Instructions: administer into each nostril hydroxyzine HCl 25 mg tablet 25 mg PO QID PRN (Reason: Anxiety) Patient Comments: TAKE ONE TABLET BY MOUTH FOUR TIMES DAILY NEEDED MAY CAUSE DROWSINESS leflunomide 20 mg tablet 20 mg PO DAILY Patient Comments: TAKE ONE TABLET BY MOUTH EVERY DAY IN THE MORNING duloxetine 60 mg capsule,delayed release(DR/EC) 60 mg PO DAILY Patient Comments: TAKE ONE CAPSULE BY MOUTH EVERY DAY Linzess 72 mcg capsule 72 mcg PO DAILY PRN (Reason: Constipation) Patient Comments: TAKE ONE CAPSULE BY MOUTH EVERY DAY promethazine 25 mg tablet 25 mg PO TID PRN (Reason: nausea and vomiting) 5 Days Qty: 20 0RF ondansetron 4 mg tablet,disintegrating 4 mg PO Q6H PRN (Reason: nausea and vomiting) 5 Days Qty: 20 0RF prednisone 10 mg tablet 10 mg PO DAILY PRN (Reason: Rheumatoid Arthritis) Patient Comments: TAKE ONE TABLET BY MOUTH DAILY NEEDED --TAKE WITH FOOD-- pantoprazole 40 mg tablet,delayed release (DR/EC) 40 mg PO DAILY duloxetine 30 mg capsule,delayed release(DR/EC) 30 mg PO DAILY Patient Comments: TAKE ONE CAPSULE BY MOUTH EVERY DAY hyoscyamine sulfate [Levsin] 0.125 mg tablet 0.125 mg PO QID PRN (Reason: dyspepsia) Qty: 60 0RF tramadol 50 mg tablet 50 mg PO Q6H PRN (Reason: pain) Qty: 14 0RF ergocalciferol (vitamin D2) 1,250 mcg (50,000 unit) capsule 50,000 unit PO WEEKLY Patient Comments: TAKE ONE CAPSULE BY MOUTH ONCE A WEEK Humira(CF) Pen 40 mg/0.4 mL pen injector kit See Rx Instructions .ROUTE .COMPLEX Patient Comments: INJECT THE CONTENTS OF 1 PEN (40 MG / 0.4 ML) SUBCUTANEOUSLY EVERY 14 DAYS Rx Instructions: 40 mg subcutaneously every 2 weeks metoprolol succinate 25 mg tablet extended release 24 hr 25 mg PO DAILY Patient Comments: TAKE ONE TABLET BY MOUTH EVERY DAY Referrals Follow up/Referrals: Sally Cordova PA [Primary Care Provider] - See instructions Activity Restrictions/Add. Instructions Additional Instructions/Restrictions: No acute cardiopulmonary emergency found on today's assessment. Please follow up with your primary care doctor if your symptoms persist. Clinical Impressions Clinical Impression: Chest pain, Dyspnea, Fatigue, Headache Discharge ED Provider: Everett Blackmon [facility] General Chief Complaint: Chest Pain Stated Complaint: chest pain Time Seen by Provider: 07/06/23 19:41 Mode of Arrival: Ambulatory Source of Information: Patient Limitations: No Limitations Description of Symptoms (Recalled from ER Triage Doc. by RN): Pt reports SOA all day, feels like she can't catch her breath, reports sharp stabbing pain in her epigatric area with some nausea, Reports having GRIMM. Took Motrin and Tylenol with no relief. History of Present Illness HPI narrative: Is a 37-year-old female present today with multiple complaints. States she has been very fatigued over the last month out of the ordinary for her. But she primarily presents with dyspnea and chest pain. States she has been short of breath all day long and started having chest pain that began 4 hours prior to arrival today. The pain is located the middle aspect of the chest is worsened with touch is nonradiating is associated with dyspnea no diaphoresis associated with this. No significant hemoptysis cough fevers no lower extremity edema no prolonged immobilizations history of DVT or PE. Patient has a history of a goiter but does not have definitive thyroid disease that she is aware of. Related Data Home Medications Medication Instructions Recorded Confirmed duloxetine 60 mg capsule,delayed 60 mg PO DAILY mood 11/13/22 02/06/23 release leflunomide 20 mg tablet 20 mg PO DAILY Rheumatoid Arthritis 11/13/22 02/06/23 linaclotide 72 mcg capsule 72 mcg PO DAILY PRN Constipation 11/13/22 02/06/23 (Linzess) fluticasone propionate 50 1 - 2 spray intranasal DAILY PRN 12/29/22 02/06/23 mcg/actuation nasal allergies spray,suspension (Flonase Allergy Relief) hydroxyzine HCl 25 mg tablet 25 mg PO QID PRN Anxiety 12/29/22 02/06/23 duloxetine 30 mg capsule,delayed 30 mg PO DAILY mood 12/30/22 02/06/23 release pantoprazole 40 mg tablet,delayed 40 mg PO DAILY Acid Reflux 12/30/22 02/06/23 release prednisone 10 mg tablet 10 mg PO DAILY PRN Rheumatoid 12/30/22 02/06/23 Arthritis adalimumab 40 mg/0.4 mL See Rx Instructions .Route 02/06/23 02/06/23 subcutaneous pen kit (Humira(CF) .COMPLEX Rheumatoid Arthritis Pen) ergocalciferol (vitamin D2) 1,250 50,000 unit PO WEEKLY Supplement 02/06/23 02/06/23 mcg (50,000 unit) capsule metoprolol succinate 25 mg 25 mg PO DAILY blood pressure 02/06/23 02/06/23 tablet,extended release 24 hr Previous Rx's Medication Instructions Recorded ondansetron 4 mg disintegrating 4 mg PO Q6H PRN nausea and 12/28/22 tablet vomiting 5 days #20 tabs promethazine 25 mg tablet 25 mg PO TID PRN nausea and 12/28/22 vomiting 5 days #20 tabs hyoscyamine sulfate 0.125 mg 0.125 mg PO QID PRN dyspepsia #60 12/31/22 tablet (Levsin) tabs tramadol 50 mg tablet 50 mg PO Q6H PRN pain #14 tabs 12/31/22 Allergies Allergy/AdvReac Type Severity Reaction Status Date / Time cefaclor [From CECLOR] Allergy Unknown Unknown Verified 02/22/23 11:09 allergy reaction metoclopramide [From REGLAN] Allergy Unknown Unknown Verified 02/22/23 11:09 allergy reaction sulfamethoxazole Allergy Unknown Unknown Verified 02/22/23 11:09 [From BACTRIM] allergy reaction trimethoprim [From BACTRIM] Allergy Unknown Unknown Verified 02/22/23 11:09 allergy reaction indomethacin Allergy Verified 02/22/23 11:09 PFSH PFSH Disclaimer: The information contained in this section may have been updated after the patient was seen, as this information can be updated by other users. Medical History Acute bronchopneumonia Ankylosing spondylitis Anxiety Back pain Body mass index (BMI) of 35.0 to 35.9 in adult Depression Endometriosis Headache Hyperlipidemia (~11/22/17) Hyperlipidemia Hypertension Irritable bowel syndrome with constipation Migraines Neck pain Obesity (BMI 35.0-39.9 without comorbidity) Obesity with body mass index (BMI) of 35.0 to 39.9 without comorbidity Rheumatoid arthritis Rheumatoid factor positive Sinusitis Sinusitis Viral bronchitis Viral gastroenteritis Vitamin D deficiency (~11/22/17) Vitamin D deficiency Surgical History History of cholecystectomy History of colonoscopy History of hysterectomy History of laparotomy History of tubal ligation Hx of dilation and curettage Family History Other Cancer Coronary artery disease Hypertension No significant family history Stroke 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 Smoking Status: Never smoker alcohol intake: never substance use type: denies use current occupational status: employed Travel in the last 8 weeks: None adopted: No caregiver/support person: No household members: spouse and children housing: house lives independently: No marital status: education level: college service: No long-term: No caffeine: Yes special sandi needs: No agree to transfusion: No do you feel safe at home: Yes victim of physical abuse: No victim of emotional abuse: No victim of sexual abuse: No would you like helpful sources: No ROS Obtained: Yes All systems reviewed & no additional complaints except as documented Physical Exam General General appearance: alert and in no apparent distress Chest Chest inspection: Present tenderness (Midsternal chest tenderness to palpation) Respiratory Respiratory exam: Present normal lung sounds bilaterally and respiratory distress Cardiovascular Cardiovascular exam: Present normal rhythm and tachycardia Abdominal Exam Abdominal exam: Present soft; Absent tenderness Neurological Exam Neurological exam: Present alert and oriented X3 HEART Score HEART Score HEART Score assessment performed?: Yes History (anamnesis): Slightly suspicious ECG: Non-specific disturbance Age: <45 years Risk factors: No known risk factors Troponin: </= normal limit HEART Score: 1 Critical Care Critical Care Time Critical Care Time: No Medical Decision Making Ray Inquiry Pt receiving controlled substance: No Vital Signs Vital Signs: 07/06/23 19:22 07/06/23 19:31 07/06/23 19:30 Temperature 98.1 F Temperature Source Oral Pulse Rate 108 H 93 H Pulse Rate [Right] 108 H Respiratory Rate 18 12 Blood Pressure 128/86 Blood Pressure [Right Arm] 149/98 H Blood Pressure Mean Blood Pressure Mean [Right Arm] 115 Blood Pressure Source [Right Arm] Automatic Cuff 02 Sat by Pulse Oximetry 100 100 Oxygen Delivery Method Room Air 07/06/23 20:00 07/06/23 20:30 07/06/23 21:01 Temperature Temperature Source Pulse Rate 85 86 Pulse Rate [Right] Respiratory Rate 12 16 Blood Pressure 142/123 H 136/101 H 117/73 Blood Pressure [Right Arm] Blood Pressure Mean 93 Blood Pressure Mean [Right Arm] Blood Pressure Source [Right Arm] 02 Sat by Pulse Oximetry 97 99 Oxygen Delivery Method 07/06/23 21:30 Temperature Temperature Source Pulse Rate Pulse Rate [Right] Respiratory Rate Blood Pressure 137/81 Blood Pressure [Right Arm] Blood Pressure Mean 90 Blood Pressure Mean [Right Arm] Blood Pressure Source [Right Arm] 02 Sat by Pulse Oximetry Oxygen Delivery Method Lab Data Lab results reviewed: Yes I reviewed the patient's lab results. Labs: Lab Results 07/06/23 19:24: WBC 6.2, RBC 4.92, Hgb 14.6, Hct 42.6, MCV 86.7, MCH 29.8, MCHC 34.3, RDW 13.2, Plt Count 323, MPV 7.7, Neut % (Auto) 54.5, Lymph % (Auto) 35.6, Mobile % (Auto) 7.1, Eos % (Auto) 1.8, Baso % (Auto) 1.0, Neut # (Auto) 3.4, Lymph # (Auto) 2.2, Mobile # (Auto) 0.4, Eos # (Auto) 0.1, Baso # (Auto) 0.1, D-Dimer 0.30, Sodium 140, Potassium 3.5, Chloride 105, Carbon Dioxide 25, Anion Gap 13.5, BUN 13, Creatinine 0.80, Estimated Creat Clear 157, Estimated GFR 80, Est GFR ( Amer) 97, Glucose 104 H, Calcium 8.7, Total Bilirubin 0.6, AST 36, ALT 31, Alkaline Phosphatase 76, Troponin I < 0.01, NT-Pro-B Natriuret Pep < 20.0, Total Protein 7.9 D, Albumin 4.5, Globulin 3.4 H, Albumin/Globulin Ratio 1.3, Lipase 131, TSH 3.68 07/06/23 22:20: Troponin I < 0.01 07/06/23 19:24 07/06/23 19:24 Response Orders (Tests/Meds): ED MEDICATIONS Discontinued Medications Generic Name Dose Route Start Last Admin Trade Name Timiq PRN Reason Stop Dose Admin Diphenhydramine HCl 25 mg 07/06/23 20:48 07/06/23 20:54 Diphenhydramine 50mg/Ml Vial IV 07/06/23 20:49 25 mg ONCE ONE Administration Lactated Ringer's 1,000 mls @ 999 mls/hr 07/06/23 20:00 07/06/23 20:00 Lactated Ringer's 1000 Ml Bag IV 07/06/23 21:00 999 mls/hr .Q1H1M KADEN Administration Ketorolac Tromethamine 15 mg 07/06/23 19:47 07/06/23 20:00 Ketorolac 30mg/Ml Vial IV 07/06/23 19:48 15 mg ONCE ONE Administration Prochlorperazine Edisylate 10 mg 07/06/23 20:48 07/06/23 20:54 Prochlorperazine 10mg/2ml Vial IV 07/06/23 20:49 10 mg ONCE ONE Administration ORDERS Category Date Time Status CXR --portable [XR chest portable] Stat Exams 07/06/23 19:47 Completed BNP [Brain Natriuretic Peptide] Stat Lab 07/06/23 19:24 Completed CBC w/Auto Diff [Complete Blood Count Auto Diff] Stat Lab 07/06/23 19:24 Completed CMP [Comprehensive Metabolic Panel] Stat Lab 07/06/23 19:24 Completed D-Dimer Stat Lab 07/06/23 19:24 Completed Lipase Stat Lab 07/06/23 19:24 Completed TSH [Thyroid Stimulating Hormone] Stat Lab 07/06/23 19:24 Completed Trop I [Troponin I] Stat Lab 07/06/23 19:24 Completed Troponin I Q3H Lab 07/06/23 22:20 Completed Troponin I Q3H Lab 07/07/23 02:00 Ordered MDM Narrative Medical Decision Narrative: 37-year-old female with above history differential includes anxiety, heart failure, myocardial injury or acute coronary syndrome, pulmonary embolism, pleurisy etc. Patient does have tenderness to palpation possible this is musculoskeletal chest discomfort but that it be nonspecific and she has no mechanism to explain that. She was tachycardic upon initial arrival therefore cannot use PERC criteria to rule out pulmonary embolism we will get a D-dimer and utilize years criteria from a CT PE standpoint. D-dimer cutoff will be 1.[address] PE. Chest x-ray EKG serial troponins will be ordered. Given the fact that she will require serial troponins and that I anticipate that her most likely go to be normal but there will be a medical necessity to keep it on her for several hours for serial evaluations will place in ED observation order at 7:50 PM. IV fluids and Toradol also will be administered. EKG performed I personally interpreted which shows a ventricular to 104 which is sinus tachycardia no acute ST segment elevations or depressions no significant T wave inversions noted normal axis no acute significant conduction abnormality aside from an incomplete right bundle branch block noted this is nondiagnostic from an emergency standpoint. Chest x-ray performed which I first interpreted shows no acute cardiopulmonary emergency. Reassessment 10:53 PM after migraine cocktail patient states that the headache that she had significant improved as well as her chest pain. Serial troponins are undetectably low. This is not consistent with acute cardiopulmonary emergency as she is been advised to follow-up with primary care doctor as needed.
[2023-07-06 19:57] LABS: Basophils # 0.1 K/mm3 (0-0.2); Eosinophils # 0.1 K/mm3 (0.0-0.4); Eosinophils % 1.8 % (0.1-12.0); Hematocrit 42.6 % (37.0-47.0); Hemoglobin 14.6 g/dL (12.2-16.2); Lymphocytes # 2.2 K/mm3 (0.7-4.5); Lymphocytes % 35.6 % (10-50); Mean Corpuscular HGB Conc 34.3 g/dL (31.8-35.4); Mean Corpuscular Hemoglobin 29.8 pg (27.0-31.2); Mean Corpuscular Volume 86.7 fl (81-99); Mean Platelet Volume 7.7 fl (7.4-10.4); Monocytes # 0.4 K/mm3 (0.1-1.0); Monocytes % 7.1 % (1.7-9.3); Neutrophils # 3.4 K/mm3 (1.8-7.8); Neutrophils % 54.5 % (37.0-80.0); Platelet Count 323 K/mm3 (142-424); Red Blood Count 4.92 M/mm3 (4.20-5.40); Red Cell Distribution Width 13.2 % (11.5-17.5); White Blood Count 6.2 K/mm3 (4.8-10.8)
[2023-07-06 19:59] LABS: Chloride 105 mmol/L (98-107); Potassium 3.5 mmoL/L (3.5-5.1); Sodium 140 mmol/L (136-145)
[2023-07-06] MEDS: LACTATED RINGERS 1000ML 1,000 ML 999 ML IV (20:00)
[2023-07-06] MEDS: KETOROLAC 30MG/ML VIAL 15 MG IV (20:00)
[2023-07-06 20:02] LABS: Alanine Aminotransferase 31 U/L (12-78); Albumin Level 4.5 g/dl (3.5-5.0); Albumin/Globulin Ratio 1.3 (1.1-1.8); Alkaline Phosphatase 76 U/L (38-126); Anion Gap 13.5 mEq/L (5-15); Aspartate Amino Transferase 36 U/L (14-36); Bilirubin,Total 0.6 mg/dl (0.2-1.3); Blood Urea Nitrogen 13 mg/dl (7-17); Calcium 8.7 mg/dl (8.4-10.2); Carbon Dioxide 25 mmol/L (22.0-30.0); Creatinine Clearance Estimated 157 mL/min (50-200); Estimated Glomerular Filt Rate 80 ml/min (>60); GFR (African American) 97 ML/MIN (>60); Globulin 3.4 g/dL (1.3-3.2); Glucose 104 mg/dl (74-100); Lipase 131 U/L (23-300); Total Protein,Serum 7.9 g/dl (6.3-8.2)
[2023-07-06 20:13] LABS: NT Pro Brain Natriuretic Pep. < 20.0 pg/mL (0-125)
[2023-07-06 20:15] LABS: Troponin I < 0.01 ng/ml (0.00-0.034)
--- NOTE | 2023-07-06 20:31 | PC.NURSE ---
Pt continues to have headache, rates 8/10 and SOA. aware
[2023-07-06 20:34] LABS: Thyroid Stimulating Hormone 3.68 uIU/mL (0.465-4.68)
[2023-07-06] MEDS: PROCHLORPERAZINE 10MG/2ML VIAL 10 MG IV (20:54)
[2023-07-06] MEDS: diphenhydrAMINE 50MG/ML VIAL 25 MG IV (20:54)
--- NOTE | 2023-07-06 21:32 | PC.NURSE ---
PT reports headache better, rates 2/10.
--- NOTE | 2023-07-06 22:28 | PC.NURSE ---
Repeat Trop drawn, pt reports that feels 100% better, GRIMM and CP gone and SOA. MD aware
[2023-07-06 22:51] LABS: Troponin I < 0.01 ng/ml (0.00-0.034)
== END 2023-07-06 22:59 | disposition home or self-care (01) ==
PROVIDERS: Emergency Provider Student in an Organized Health Care Education/Training Program; PCP Physician Assistant
DX: R07.9 Chest pain, unspecified (principal); R51.9 Headache, unspecified; R06.00 Dyspnea, unspecified; R53.83 Other fatigue; M06.9 Rheumatoid arthritis, unspecified; I10 Essential (primary) hypertension; E78.5 Hyperlipidemia, unspecified; R00.0 Tachycardia, unspecified; I45.19 Other right bundle-branch block
CPT/HCPCS: 71045; 80053; 83690; 83880; 84443; 84484; 85025; 85378; 93005; 96361; 96374; 96375; 99285

== ENCOUNTER 2023-07-16 11:49 | Emergency (ER) | payer OTHER, SELFPAY ==
[2023-07-16 11:52] VITALS: BP 178/106; PULSE 105; RESP 18; TEMP 36.9; O2SAT 98; BMI 37.1
--- NOTE | 2023-07-16 12:35 | XR_ITS ---
PROCEDURE INFORMATION: Exam: XR Chest Exam date and time: 07/16/2023 12:41 PM Age: 37 years old Clinical indication: Dyspnea TECHNIQUE: Imaging protocol: Radiologic exam of the chest. Views: 1 view. COMPARISON: CR XR CHEST PORTABLE 07/06/2023 7:55 PM FINDINGS: Lungs: Patchy infiltrative opacity right upper lobe. Findings suggestive of pneumonia. Pleural spaces: Unremarkable. No pleural effusion. No pneumothorax. Heart/Mediastinum: Unremarkable. No cardiomegaly. Bones/joints: Unremarkable. IMPRESSION: Patchy infiltrative opacity right upper lobe. Findings suggestive of pneumonia.
--- NOTE | 2023-07-16 12:36 | HMH.EDGENADL ---
Discharge Plan Disposition Patient Disposition: Still a Patient Prescriptions Prescriptions: New albuterol sulfate 90 mcg/actuation HFA aerosol inhaler 4 inh inhalation Q4H PRN (Reason: cough) Qty: 8.5 0RF azithromycin 250 mg tablet See Rx Instructions .ROUTE .COMPLEX Qty: 6 0RF Rx Instructions: For 250 mg dose pack: take 500 mg today (day 1), then 250 mg for 4 days (days 2-5) benzonatate 100 mg capsule 100 mg PO TID PRN (Reason: cough) 5 Days Qty: 20 0RF ondansetron 4 mg tablet,disintegrating 4 mg PO Q6H PRN (Reason: nausea and vomiting) 5 Days Qty: 20 0RF amoxicillin-pot clavulanate 875-125 mg tablet 1 tab PO BID 7 Days Qty: 14 0RF No Action fluticasone propionate [Flonase Allergy Relief] 50 mcg/actuation spray,suspension 1 - 2 spray intranasal DAILY PRN (Reason: allergies) Rx Instructions: administer into each nostril hydroxyzine HCl 25 mg tablet 25 mg PO QID PRN (Reason: Anxiety) Patient Comments: TAKE ONE TABLET BY MOUTH FOUR TIMES DAILY NEEDED MAY CAUSE DROWSINESS leflunomide 20 mg tablet 20 mg PO DAILY Patient Comments: TAKE ONE TABLET BY MOUTH EVERY DAY IN THE MORNING duloxetine 60 mg capsule,delayed release(DR/EC) 60 mg PO DAILY Patient Comments: TAKE ONE CAPSULE BY MOUTH EVERY DAY Linzess 72 mcg capsule 72 mcg PO DAILY PRN (Reason: Constipation) Patient Comments: TAKE ONE CAPSULE BY MOUTH EVERY DAY promethazine 25 mg tablet 25 mg PO TID PRN (Reason: nausea and vomiting) 5 Days Qty: 20 0RF ondansetron 4 mg tablet,disintegrating 4 mg PO Q6H PRN (Reason: nausea and vomiting) 5 Days Qty: 20 0RF prednisone 10 mg tablet 10 mg PO DAILY PRN (Reason: Rheumatoid Arthritis) Patient Comments: TAKE ONE TABLET BY MOUTH DAILY NEEDED --TAKE WITH FOOD-- pantoprazole 40 mg tablet,delayed release (DR/EC) 40 mg PO DAILY duloxetine 30 mg capsule,delayed release(DR/EC) 30 mg PO DAILY Patient Comments: TAKE ONE CAPSULE BY MOUTH EVERY DAY hyoscyamine sulfate [Levsin] 0.125 mg tablet 0.125 mg PO QID PRN (Reason: dyspepsia) Qty: 60 0RF tramadol 50 mg tablet 50 mg PO Q6H PRN (Reason: pain) Qty: 14 0RF ergocalciferol (vitamin D2) 1,250 mcg (50,000 unit) capsule 50,000 unit PO WEEKLY Patient Comments: TAKE ONE CAPSULE BY MOUTH ONCE A WEEK Humira(CF) Pen 40 mg/0.4 mL pen injector kit See Rx Instructions .ROUTE .COMPLEX Patient Comments: INJECT THE CONTENTS OF 1 PEN (40 MG / 0.4 ML) SUBCUTANEOUSLY EVERY 14 DAYS Rx Instructions: 40 mg subcutaneously every 2 weeks metoprolol succinate 25 mg tablet extended release 24 hr 25 mg PO DAILY Patient Comments: TAKE ONE TABLET BY MOUTH EVERY DAY Referrals Follow up/Referrals: Narinder Dior MD [Primary Care Provider] - See instructions Clinical Impressions Clinical Impression: CAP (community acquired pneumonia), Viral syndrome, Immunosuppression Stand Alone Forms Stand Alone Forms: Work/School Release Discharge ED Provider: Everett Blackmon General Adult HPI General Chief complaint: Fever Stated complaint: strep diaognosis 3 days ago no improvement w/meds Time Seen by Provider: 07/16/23 12:30 Mode of Arrival: Ambulatory Source of Information: Patient Limitations: No Limitations Description of Symptoms (Recalled from ER Triage Doc. by RN): strep on . Been on antibiotics. History of Present Illness HPI narrative: Patient is a 37-year-old female who is immune suppressed on Humira presented today with bodyaches fevers chills headache diffuse myalgias specifically on the right flank area. She also had nausea and vomiting. She states she has not had any significant sore throat may be very mild few days ago but she tested positive for strep she is tested positive the past not sure if she is a carrier for this and has been on antibiotics but is no significant improvement in her symptoms. Unsure as to whether or not she had a viral swab at that time as well. Denies any shortness of breath or respiratory symptoms. Denies any frequency urgency or dysuria. Denies any rash. Denies any neck stiffness. Related Data Home Medications Medication Instructions Recorded Confirmed duloxetine 60 mg capsule,delayed 60 mg PO DAILY mood 11/13/22 02/06/23 release leflunomide 20 mg tablet 20 mg PO DAILY Rheumatoid Arthritis 11/13/22 02/06/23 linaclotide 72 mcg capsule 72 mcg PO DAILY PRN Constipation 11/13/22 02/06/23 (Linzess) fluticasone propionate 50 1 - 2 spray intranasal DAILY PRN 12/29/22 02/06/23 mcg/actuation nasal allergies spray,suspension (Flonase Allergy Relief) hydroxyzine HCl 25 mg tablet 25 mg PO QID PRN Anxiety 12/29/22 02/06/23 duloxetine 30 mg capsule,delayed 30 mg PO DAILY mood 12/30/22 02/06/23 release pantoprazole 40 mg tablet,delayed 40 mg PO DAILY Acid Reflux 12/30/22 02/06/23 release prednisone 10 mg tablet 10 mg PO DAILY PRN Rheumatoid 12/30/22 02/06/23 Arthritis adalimumab 40 mg/0.4 mL See Rx Instructions .Route 02/06/23 02/06/23 subcutaneous pen kit (Humira(CF) .COMPLEX Rheumatoid Arthritis Pen) ergocalciferol (vitamin D2) 1,250 50,000 unit PO WEEKLY Supplement 02/06/23 02/06/23 mcg (50,000 unit) capsule metoprolol succinate 25 mg 25 mg PO DAILY blood pressure 02/06/23 02/06/23 tablet,extended release 24 hr Previous Rx's Medication Instructions Recorded ondansetron 4 mg disintegrating 4 mg PO Q6H PRN nausea and 12/28/22 tablet vomiting 5 days #20 tabs promethazine 25 mg tablet 25 mg PO TID PRN nausea and 12/28/22 vomiting 5 days #20 tabs hyoscyamine sulfate 0.125 mg 0.125 mg PO QID PRN dyspepsia #60 12/31/22 tablet (Levsin) tabs tramadol 50 mg tablet 50 mg PO Q6H PRN pain #14 tabs 12/31/22 albuterol sulfate 90 mcg/actuation 4 inh inhalation Q4H PRN cough 07/16/23 aerosol inhaler #8.5 grams amoxicillin 875 mg-potassium 1 tab PO BID 7 days #14 tabs 07/16/23 clavulanate 125 mg tablet azithromycin 250 mg tablet See Rx Instructions PO .COMPLEX #6 07/16/23 tabs benzonatate 100 mg capsule 100 mg PO TID PRN cough 5 days #20 07/16/23 caps ondansetron 4 mg disintegrating 4 mg PO Q6H PRN nausea and 07/16/23 tablet vomiting 5 days #20 tabs Allergies Allergy/AdvReac Type Severity Reaction Status Date / Time cefaclor [From CECLOR] Allergy Unknown Unknown Verified 02/22/23 11:09 allergy reaction metoclopramide [From REGLAN] Allergy Unknown Unknown Verified 02/22/23 11:09 allergy reaction sulfamethoxazole Allergy Unknown Unknown Verified 02/22/23 11:09 [From BACTRIM] allergy reaction trimethoprim [From BACTRIM] Allergy Unknown Unknown Verified 02/22/23 11:09 allergy reaction indomethacin Allergy Verified 02/22/23 11:09 PFSH PFSH Disclaimer: The information contained in this section may have been updated after the patient was seen, as this information can be updated by other users. Medical History Acute bronchopneumonia Ankylosing spondylitis Anxiety Back pain Body mass index (BMI) of 35.0 to 35.9 in adult Depression Endometriosis Headache Hyperlipidemia (~11/22/17) Hyperlipidemia Hypertension Irritable bowel syndrome with constipation Migraines Neck pain Obesity (BMI 35.0-39.9 without comorbidity) Obesity with body mass index (BMI) of 35.0 to 39.9 without comorbidity Rheumatoid arthritis Rheumatoid factor positive Sinusitis Sinusitis Viral bronchitis Viral gastroenteritis Vitamin D deficiency (~11/22/17) Vitamin D deficiency Surgical History History of cholecystectomy History of colonoscopy History of hysterectomy History of laparotomy History of tubal ligation Hx of dilation and curettage Family History Other Cancer Coronary artery disease Hypertension No significant family history Stroke 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 Smoking Status: Never smoker alcohol intake: never substance use type: denies use current occupational status: employed Travel in the last 8 weeks: None adopted: No caregiver/support person: No household members: spouse and children housing: house lives independently: No marital status: education level: college service: No residential: No caffeine: Yes special sandi needs: No agree to transfusion: No do you feel safe at home: Yes victim of physical abuse: No victim of emotional abuse: No victim of sexual abuse: No would you like helpful sources: No ROS Obtained: Yes All systems reviewed & no additional complaints except as documented Physical Exam General General appearance: alert Respiratory Respiratory exam: Present normal lung sounds bilaterally; Absent respiratory distress Cardiovascular Cardiovascular exam: Present regular rate; Absent tachycardia Abdominal Exam Abdominal exam: Present soft; Absent distention or tenderness Back Exam Back exam: Present CVA tenderness (R) Neurological Exam Neurological exam: Present alert and oriented X3 Medical Decision Making Rya Inquiry Pt receiving controlled substance: No Vital Signs: 07/16/23 11:52 Temperature 98.4 F Temperature Source Oral Pulse Rate [Right Radial] 105 H Respiratory Rate 18 Blood Pressure [Right Arm] 178/106 H Blood Pressure Mean [Right Arm] 130 02 Sat by Pulse Oximetry 98 Oxygen Delivery Method Room Air Lab Data Lab results reviewed: Yes I reviewed the patient's lab results. Lab Results 07/16/23 12:38: Urine Color Yellow, Urine Appearance Clear, Urine pH 6.0, Ur Specific [place] 1.015, Urine Protein Negative, Urine Glucose (UA) Negative, Urine Ketones Negative, Urine Blood Negative, Urine Nitrate Negative, Urine Bilirubin Negative, Urine Urobilinogen 1.0, Ur Leukocyte Esterase Negative, Urine RBC None, Urine WBC None, Ur Squamous Epith Cells Occasional, Urine Bacteria Trace 07/16/23 12:55: WBC 8.1, RBC 4.47, Hgb 13.5, Hct 38.5, MCV 86.1, MCH 30.2, MCHC 35.1, RDW 13.0, Plt Count 256, MPV 7.8, Neut % (Auto) 72.2, Lymph % (Auto) 19.8, Wise % (Auto) 6.3, Eos % (Auto) 1.2, Baso % (Auto) 0.6, Neut # (Auto) 5.8, Lymph # (Auto) 1.6, Wise # (Auto) 0.5, Eos # (Auto) 0.1, Baso # (Auto) 0.1, Sodium 137, Potassium 3.7, Chloride 108 H, Carbon Dioxide 25, Anion Gap 7.7, BUN 8, Creatinine 0.70, Estimated Creat Clear 179, Estimated GFR 94, Est GFR ( Amer) 113, Glucose 101 H, Calcium 8.8, Total Bilirubin 0.8, AST 34, ALT 38, Alkaline Phosphatase 59, Total Protein 7.5, Albumin 4.2, Globulin 3.3 H, Albumin/Globulin Ratio 1.3 07/16/23 13:00: SARS-CoV-2 (PCR) Not detected, Influenza A Untype (PCR) Not detected, Influenza Type B (PCR) Not detected 07/16/23 13:35: Lactate < 0.5 L 07/16/23 12:55 07/16/23 12:55 Orders (Tests/Meds): ED MEDICATIONS Discontinued Medications Generic Name Dose Route Start Last Admin Trade Name Freq PRN Reason Stop Dose Admin Acetaminophen 1,000 mg 07/16/23 12:35 07/16/23 13:10 Acetaminophen 1,000mg/100ml Vial IV 07/16/23 12:36 1,000 mg ONCE ONE Administration Lactated Ringer's 1,000 mls @ 999 mls/hr 07/16/23 12:45 07/16/23 13:10 Lactated Ringer's 1000 Ml Bag IV 07/16/23 13:45 999 mls/hr .Q1H1M KADEN Administration Ondansetron HCl 4 mg 07/16/23 12:35 07/16/23 13:10 Ondansetron 4mg/2ml Vial IV 07/16/23 12:36 4 mg ONCE ONE Administration ORDERS Category Date Time Status CXR --portable [XR chest portable] Stat Exams 07/16/23 12:35 Completed CBC w/Auto Diff [Complete Blood Count Auto Diff] Stat Lab 07/16/23 12:55 Completed CMP [Comprehensive Metabolic Panel] Stat Lab 07/16/23 12:55 Completed Lactic Acid Stat Lab 07/16/23 13:35 Completed Rapid PCR Covid and Flu A/B Stat Lab 07/16/23 13:00 Completed UA [Urinalysis and Microscopic] Stat Lab 07/16/23 12:38 Completed Blood Culture Stat Micro 07/16/23 13:35 Received Medical Decision Narrative: 37-year-old female immunosuppressed on Humira here with fevers chills body aches diffuse myalgias etc. Will treat her symptoms with IV Tylenol Zofran IV fluids. Will do a septic workup given her immunosuppression. She does have some right CVA tenderness concerning for possible pyelonephritis otherwise she has a nonfocal physical exam. She has been taking antipyretics and is afebrile at the moment overall looks nontoxic to me at the moment. Bacteremia certainly on the differential as well will reassess after initial workup is complete. Reassessment 302 patient remains very stable but symptomatically does not states she is feeling much better. Still has some nausea. She has had some cough chest x-ray shows a patchy infiltrate in the right upper lobe, not very impressive however given her immune suppressed status we will go and treat this as a bacterial pneumonia. Augmentin and azithromycin have been prescribed. Urinalysis unremarkable no evidence of sepsis from a laboratory or clinical standpoint. I do not suspect any other infection at this moment. Blood cultures are pending. She stable for outpatient management she has been advised to follow-up close with her outpatient doctor and return with any worsening symptoms. Critical Care Critical Care Time Critical Care Time: No
[2023-07-16 12:42] LABS: Microscopic, Urine URINE MICROSCOPIC (MICROSCOPIC)
[2023-07-16 12:43] LABS: Appearance,Urine CLEAR (Clear); Bilirubin,Urine Negative (Negative); Blood, Urine Negative (Negative); Color,Urine YELLOW (Yellow); Glucose,Urine (UA) Negative (Negative); Ketones,Urine Negative (Negative); Leukocyte Esterase,Urine Negative (Negative); Nitrate,Urine Negative (Negative); Protein,Urine Negative (Negative); Specific Gravity, Urine 1.015 (1.005-1.030)
[2023-07-16 13:02] LABS: Bacteria,Urine Trace /lpf; Squamous Epithelial Cell,Urine Occasional #/hpf (0-5)
[2023-07-16 13:05] LABS: Basophils # 0.1 K/mm3 (0-0.2); Basophils % 0.6 % (0.1-2.0); Eosinophils # 0.1 K/mm3 (0.0-0.4); Eosinophils % 1.2 % (0.1-12.0); Hematocrit 38.5 % (37.0-47.0); Hemoglobin 13.5 g/dL (12.2-16.2); Lymphocytes # 1.6 K/mm3 (0.7-4.5); Lymphocytes % 19.8 % (10-50); Mean Corpuscular HGB Conc 35.1 g/dL (31.8-35.4); Mean Corpuscular Hemoglobin 30.2 pg (27.0-31.2); Mean Corpuscular Volume 86.1 fl (81-99); Mean Platelet Volume 7.8 fl (7.4-10.4); Monocytes # 0.5 K/mm3 (0.1-1.0); Monocytes % 6.3 % (1.7-9.3); Neutrophils # 5.8 K/mm3 (1.8-7.8); Neutrophils % 72.2 % (37.0-80.0); Platelet Count 256 K/mm3 (142-424); Red Blood Count 4.47 M/mm3 (4.20-5.40); White Blood Count 8.1 K/mm3 (4.8-10.8)
[2023-07-16 13:06] LABS: Chloride 108 mmol/L (98-107)
[2023-07-16 13:07] LABS: Potassium 3.7 mmoL/L (3.5-5.1); Sodium 137 mmol/L (136-145)
[2023-07-16 13:09] LABS: Alanine Aminotransferase 38 U/L (12-78); Alkaline Phosphatase 59 U/L (38-126); Anion Gap 7.7 mEq/L (5-15); Aspartate Amino Transferase 34 U/L (14-36); Bilirubin,Total 0.8 mg/dl (0.2-1.3); Blood Urea Nitrogen 8 mg/dl (7-17); Carbon Dioxide 25 mmol/L (22.0-30.0); Creatinine Clearance Estimated 179 mL/min (50-200); Estimated Glomerular Filt Rate 94 ml/min (>60); GFR (African American) 113 ML/MIN (>60)
[2023-07-16 13:10] LABS: Albumin Level 4.2 g/dl (3.5-5.0); Albumin/Globulin Ratio 1.3 (1.1-1.8); Calcium 8.8 mg/dl (8.4-10.2); Globulin 3.3 g/dL (1.3-3.2); Glucose 101 mg/dl (74-100); Total Protein,Serum 7.5 g/dl (6.3-8.2)
[2023-07-16] MEDS: ONDANSETRON 4MG/2ML VIAL 4 MG IV (13:10)
[2023-07-16] MEDS: ACETAMINOPHEN 1,000MG/100ML VIAL 1000 MG IV (13:10)
[2023-07-16] MEDS: LACTATED RINGERS 1000ML 1,000 ML 999 ML IV (13:10)
[2023-07-16 13:12] LABS: Coronavirus 19, PCR Not Detected (NotDetected); Influenza A, PCR Not Detected (NotDetected); Influenza B, PCR Not Detected (NotDetected)
--- NOTE | 2023-07-16 13:21 | PC.NURSE ---
REQUESTED LAB TO COLLECT LACTIC AND SECOND SET OF BLOOD CULTURES
--- NOTE | 2023-07-16 13:36 | PC.NURSE ---
LAB AT BEDSIDE
[2023-07-16 14:00] LABS: Lactic Acid < 0.5 mmol/L (0.7-2.1)
--- NOTE | 2023-07-16 14:19 | PC.NURSE ---
Rounded on pt. Advised she was still nauseous. Dr. Blackmon notified.
[2023-07-16 15:09] VITALS: BP 122/86; PULSE 92; RESP 18; TEMP 36.9; O2SAT 98
== END 2023-07-16 15:05 | disposition still patient (30) ==
PROVIDERS: Emergency Provider Student in an Organized Health Care Education/Training Program; PCP Family Medicine
DX: J18.8 Other pneumonia, unspecified organism (principal); D84.9 Immunodeficiency, unspecified; R10.31 Right lower quadrant pain; R51.9 Headache, unspecified; R50.9 Fever, unspecified; R11.2 Nausea with vomiting, unspecified; M06.9 Rheumatoid arthritis, unspecified; I10 Essential (primary) hypertension; E78.5 Hyperlipidemia, unspecified
CPT/HCPCS: 36415; 71045; 80053; 81001; 83605; 85025; 87040; 87636; 96361; 96374; 96375; 99284; J0131; J2405

== ENCOUNTER 2023-09-28 13:37 | Outpatient (CLI) | payer OTHER, SELFPAY ==
--- NOTE | 2023-09-28 13:40 | US_ITS ---
FINAL REPORT TECHNIQUE: Real-time grayscale and color Doppler imaging of the thyroid gland was performed per protocol. CLINICAL HISTORY: ENLARGED THYROID COMPARISON: 02/09/2022 FINDINGS: The right lobe measures 4.4 x 1.7 x 1.9 cm. The background thyroid parenchyma is heterogeneous and mildly enlarged, similar to prior exam. The left lobe measures 4.8 x 1.5 x 1.8 cm. The background thyroid parenchyma is heterogeneous and mildly enlarged, similar to prior exam. The isthmus measures 0.38 cm. NODULES: There is an isoechoic nodule in the posterior mid right lobe, TR 3, measures 9 mm. There is no nodule in the left lobe. IMPRESSION: New subtle nodule in the mid right lobe, recommend 12-month follow-up. Reviewed, Interpreted and Dictated by Marilu Headley MD Transcribed by MATT Andrade Authenticated and . [facility]
== END 2023-09-28 23:59 ==
LOC: RAD 13:38
PROVIDERS: PCP Nurse Practitioner Family; Visit Provider Nurse Practitioner Family
DX: E04.9 Nontoxic goiter, unspecified (principal)
CPT/HCPCS: 76536

== ENCOUNTER 2023-10-03 12:27 | Emergency (ER) | payer OTHER, SELFPAY ==
[2023-10-03] VITALS (10 sets, daily range): BP systolic 122–155; BP diastolic 62–117; PULSE 80–99; RESP 14–18; TEMP 36.6; O2SAT 98–100; BMI 37.1
[2023-10-03] MEDS: ACETAMINOPHEN 1,000MG/100ML VIAL 1000 MG IV (13:05)
[2023-10-03] MEDS: LACTATED RINGERS 1000ML 1,000 ML 999 ML IV (13:05)
[2023-10-03] MEDS: ONDANSETRON 4MG/2ML VIAL 4 MG IV (13:05)
[2023-10-03 13:10] LABS: Basophils # 0.1 K/mm3 (0-0.2); Eosinophils # 0.1 K/mm3 (0.0-0.4); Eosinophils % 0.6 % (0.1-12.0); Hematocrit 45.9 % (37.0-47.0); Hemoglobin 14.8 g/dL (12.2-16.2); Lymphocytes # 1.8 K/mm3 (0.7-4.5); Lymphocytes % 21.8 % (10-50); Mean Corpuscular HGB Conc 32.2 g/dL (31.8-35.4); Mean Corpuscular Hemoglobin 28.7 pg (27.0-31.2); Mean Corpuscular Volume 89.1 fl (81-99); Mean Platelet Volume 7.2 fl (7.4-10.4); Monocytes # 0.4 K/mm3 (0.1-1.0); Monocytes % 4.8 % (1.7-9.3); Neutrophils # 5.8 K/mm3 (1.8-7.8); Neutrophils % 71.8 % (37.0-80.0); Platelet Count 336 K/mm3 (142-424); Red Blood Count 5.15 M/mm3 (4.20-5.40); Red Cell Distribution Width 13.1 % (11.5-17.5)
[2023-10-03 13:11] LABS: Chloride 106 mmol/L (98-107); Sodium 141 mmol/L (136-145)
[2023-10-03 13:13] LABS: Alanine Aminotransferase 32 U/L (12-78); Alkaline Phosphatase 78 U/L (38-126); Aspartate Amino Transferase 36 U/L (14-36); Bilirubin,Total 0.5 mg/dl (0.2-1.3); Blood Urea Nitrogen 15 mg/dl (7-17); Creatinine Clearance Estimated 157 mL/min (50-200); Estimated Glomerular Filt Rate 80 ml/min (>60); GFR (African American) 97 ML/MIN (>60); Lipase 109 U/L (23-300)
[2023-10-03 13:14] LABS: Albumin Level 4.5 g/dl (3.5-5.0); Albumin/Globulin Ratio 1.2 (1.1-1.8); Carbon Dioxide 29 mmol/L (22.0-30.0); Globulin 3.8 g/dL (1.3-3.2); Glucose 110 mg/dl (74-100); Total Protein,Serum 8.3 g/dl (6.3-8.2)
[2023-10-03 13:29] LABS: Microscopic, Urine URINE MICROSCOPIC (MICROSCOPIC)
[2023-10-03 13:35] LABS: Appearance,Urine CLEAR (Clear); Bilirubin,Urine Negative (Negative); Blood, Urine Negative (Negative); Color,Urine YELLOW (Yellow); Glucose,Urine (UA) Negative (Negative); Ketones,Urine Negative (Negative); Leukocyte Esterase,Urine Negative (Negative); Nitrate,Urine Negative (Negative); PH,Urine 6.5 (5.0-8.5); Protein,Urine Negative (Negative); Specific Gravity, Urine 1.025 (1.005-1.030); Urobilinogen,Urine 0.2 EU/dl (0.2)
[2023-10-03] MEDS: PROMETHAZINE HCL 25MG/ML 1ML VIAL 25 MG IV (13:50)
[2023-10-03] MEDS: SODIUM CHLORIDE 0.9% 25ML BAG 25 ML IV (13:50)
--- NOTE | 2023-10-03 14:04 | ED_ITS ---
Discharge Plan Disposition Patient Disposition: Home, Self-Care Condition: Good Prescriptions Prescriptions: New ondansetron 4 mg tablet,disintegrating 4 mg PO Q8H PRN (Reason: nausea and vomiting) 4 Days Qty: 12 0RF dicyclomine 20 mg tablet 20 mg PO QID PRN (Reason: abdominal pain) Qty: 20 0RF No Action fluticasone propionate [Flonase Allergy Relief] 50 mcg/actuation spray,suspension 1 - 2 spray intranasal DAILY PRN (Reason: allergies) Rx Instructions: administer into each nostril hydroxyzine HCl 25 mg tablet 25 mg PO QID PRN (Reason: Anxiety) Patient Comments: TAKE ONE TABLET BY MOUTH FOUR TIMES DAILY NEEDED MAY CAUSE DROWSINESS albuterol sulfate 90 mcg/actuation HFA aerosol inhaler 4 inh inhalation Q4H PRN (Reason: cough) Qty: 8.5 0RF azithromycin 250 mg tablet See Rx Instructions .ROUTE .COMPLEX Qty: 6 0RF Rx Instructions: For 250 mg dose pack: take 500 mg today (day 1), then 250 mg for 4 days (days 2-5) benzonatate 100 mg capsule 100 mg PO TID PRN (Reason: cough) 5 Days Qty: 20 0RF ondansetron 4 mg tablet,disintegrating 4 mg PO Q6H PRN (Reason: nausea and vomiting) 5 Days Qty: 20 0RF amoxicillin-pot clavulanate 875-125 mg tablet 1 tab PO BID 7 Days Qty: 14 0RF leflunomide 20 mg tablet 20 mg PO DAILY Patient Comments: TAKE ONE TABLET BY MOUTH EVERY DAY IN THE MORNING duloxetine 60 mg capsule,delayed release(DR/EC) 60 mg PO DAILY Patient Comments: TAKE ONE CAPSULE BY MOUTH EVERY DAY Linzess 72 mcg capsule 72 mcg PO DAILY PRN (Reason: Constipation) Patient Comments: TAKE ONE CAPSULE BY MOUTH EVERY DAY promethazine 25 mg tablet 25 mg PO TID PRN (Reason: nausea and vomiting) 5 Days Qty: 20 0RF ondansetron 4 mg tablet,disintegrating 4 mg PO Q6H PRN (Reason: nausea and vomiting) 5 Days Qty: 20 0RF prednisone 10 mg tablet 10 mg PO DAILY PRN (Reason: Rheumatoid Arthritis) Patient Comments: TAKE ONE TABLET BY MOUTH DAILY NEEDED --TAKE WITH FOOD-- pantoprazole 40 mg tablet,delayed release (DR/EC) 40 mg PO DAILY duloxetine 30 mg capsule,delayed release(DR/EC) 30 mg PO DAILY Patient Comments: TAKE ONE CAPSULE BY MOUTH EVERY DAY hyoscyamine sulfate [Levsin] 0.125 mg tablet 0.125 mg PO QID PRN (Reason: dyspepsia) Qty: 60 0RF tramadol 50 mg tablet 50 mg PO Q6H PRN (Reason: pain) Qty: 14 0RF ergocalciferol (vitamin D2) 1,250 mcg (50,000 unit) capsule 50,000 unit PO WEEKLY Patient Comments: TAKE ONE CAPSULE BY MOUTH ONCE A WEEK Humira(CF) Pen 40 mg/0.4 mL pen injector kit See Rx Instructions .ROUTE .COMPLEX Patient Comments: INJECT THE CONTENTS OF 1 PEN (40 MG / 0.4 ML) SUBCUTANEOUSLY EVERY 14 DAYS Rx Instructions: 40 mg subcutaneously every 2 weeks metoprolol succinate 25 mg tablet extended release 24 hr 25 mg PO DAILY Patient Comments: TAKE ONE TABLET BY MOUTH EVERY DAY Referrals Follow up/Referrals: Narinder Dior MD [Primary Care Provider] - See instructions Urbano Meneses MD [Staff Physician] - See instructions Activity Restrictions/Add. Instructions Additional Instructions/Restrictions: You were evaluated in the emergency department today. Please follow-up closely with primary care as well as with cardiology. supervisor electronics testing your prescriptions and take them as needed for symptoms. Hydrate. Eat a bland diet until your symptoms have resolved. Return to the emergency department for new or worsening symptoms. Clinical Impressions Clinical Impression: Dizziness, Nausea, Vomiting Instructions Patient Instructions: DI for Diarrhea and Traveler's Diarrhea -- Adult, DI for Nausea -- Adult Discharge ED Provider: Fina Nelson General Adult HPI <Logan Ortega MD - Last Filed: 10/03/23 15:12> General Chief complaint: Nausea/Vomiting/Diarrhea Stated complaint: dizzy, vomiting, stomach pain Time Seen by Provider: 10/03/23 12:35 Mode of Arrival: Ambulatory Limitations: No Limitations Description of Symptoms (Recalled from ER Triage Doc. by RN): patient felt dizzy at work, checked blood glucose, 115. Patient attempted to eat shukri cup but unable to keep any food down. Patient state she has been vomiting each time she eats. Patient stated she has some abdominal pain for past couple of days. History of Present Illness HPI narrative: 37-year-old female no relevant medical history presenting with vomiting and dizziness. Started at work just before arrival. States that she felt hot, nauseated, then like she was going to throw up. Thought might be her sugar, checked her sugar it was normal. Try to eat sweets, this did not help. No chest pain, shortness of breath, abdominal pain, neurologic deficits, dysuria, hematuria, recent illness, or any other concerns. Better at rest, worse with exertion. Patient is concerned because she has a strong family history of cardiac disease. Please note that above description of symptoms, in this electronic medical record under categorization of recalled from ER triage doctor by RN are reflective of an initial nursing assessment, however, is not reflective of my full history and physical exam that was personally taken and clarified. Consequentially, this preceding description of symptoms, which may include the patient's categorized chief complaint in the EMR, do not reflect my personal clinical impression, and the ultimate description of history of present illness and patient stated complaints should be deferred to this section of the note. Unless stated otherwise or congruent with this section of the note, additional signs, symptoms, or incongruence should be interpreted as inaccurate with my clinical impression. Related Data Home Medications Medication Instructions Recorded Confirmed duloxetine 60 mg capsule,delayed 60 mg PO DAILY mood 11/13/22 02/06/23 release leflunomide 20 mg tablet 20 mg PO DAILY Rheumatoid Arthritis 11/13/22 02/06/23 linaclotide 72 mcg capsule 72 mcg PO DAILY PRN Constipation 11/13/22 02/06/23 (Linzess) fluticasone propionate 50 1 - 2 spray intranasal DAILY PRN 12/29/22 02/06/23 mcg/actuation nasal allergies spray,suspension (Flonase Allergy Relief) hydroxyzine HCl 25 mg tablet 25 mg PO QID PRN Anxiety 12/29/22 02/06/23 duloxetine 30 mg capsule,delayed 30 mg PO DAILY mood 12/30/22 02/06/23 release pantoprazole 40 mg tablet,delayed 40 mg PO DAILY Acid Reflux 12/30/22 02/06/23 release prednisone 10 mg tablet 10 mg PO DAILY PRN Rheumatoid 12/30/22 02/06/23 Arthritis adalimumab 40 mg/0.4 mL See Rx Instructions .Route 02/06/23 02/06/23 subcutaneous pen kit (Humira(CF) .COMPLEX Rheumatoid Arthritis Pen) ergocalciferol (vitamin D2) 1,250 50,000 unit PO WEEKLY Supplement 02/06/23 02/06/23 mcg (50,000 unit) capsule metoprolol succinate 25 mg 25 mg PO DAILY blood pressure 02/06/23 02/06/23 tablet,extended release 24 hr Previous Rx's Medication Instructions Recorded ondansetron 4 mg disintegrating 4 mg PO Q6H PRN nausea and 12/28/22 tablet vomiting 5 days #20 tabs promethazine 25 mg tablet 25 mg PO TID PRN nausea and 12/28/22 vomiting 5 days #20 tabs hyoscyamine sulfate 0.125 mg 0.125 mg PO QID PRN dyspepsia #60 12/31/22 tablet (Levsin) tabs tramadol 50 mg tablet 50 mg PO Q6H PRN pain #14 tabs 12/31/22 albuterol sulfate 90 mcg/actuation 4 inh inhalation Q4H PRN cough 07/16/23 aerosol inhaler #8.5 grams amoxicillin 875 mg-potassium 1 tab PO BID 7 days #14 tabs 07/16/23 clavulanate 125 mg tablet azithromycin 250 mg tablet See Rx Instructions PO .COMPLEX #6 07/16/23 tabs benzonatate 100 mg capsule 100 mg PO TID PRN cough 5 days #20 07/16/23 caps ondansetron 4 mg disintegrating 4 mg PO Q6H PRN nausea and 07/16/23 tablet vomiting 5 days #20 tabs dicyclomine 20 mg tablet 20 mg PO QID PRN abdominal pain 10/03/23 #20 tabs ondansetron 4 mg disintegrating 4 mg PO Q8H PRN nausea and 10/03/23 tablet vomiting 4 days #12 tabs Allergies Allergy/AdvReac Type Severity Reaction Status Date / Time cefaclor [From CECLOR] Allergy Unknown Unknown Verified 02/22/23 11:09 allergy reaction sulfamethoxazole Allergy Unknown Unknown Verified 02/22/23 11:09 [From BACTRIM] allergy reaction trimethoprim [From BACTRIM] Allergy Unknown Unknown Verified 02/22/23 11:09 allergy reaction indomethacin Allergy Verified 02/22/23 11:09 PFS <Logan Ortega MD - Last Filed: 10/03/23 15:12> [facility] Disclaimer: The information contained in this section may have been updated after the patient was seen, as this information can be updated by other users. Medical History Acute bronchopneumonia Ankylosing spondylitis Anxiety Back pain Body mass index (BMI) of 35.0 to 35.9 in adult Depression Endometriosis Headache Hyperlipidemia (~11/22/17) Hyperlipidemia Hypertension Irritable bowel syndrome with constipation Migraines Neck pain Obesity (BMI 35.0-39.9 without comorbidity) Obesity with body mass index (BMI) of 35.0 to 39.9 without comorbidity Rheumatoid arthritis Rheumatoid factor positive Sinusitis Sinusitis Viral bronchitis Viral gastroenteritis Vitamin D deficiency (~11/22/17) Vitamin D deficiency Surgical History History of cholecystectomy History of colonoscopy History of hysterectomy History of laparotomy History of tubal ligation Hx of dilation and curettage Family History Other Cancer Coronary artery disease Hypertension No significant family history Stroke 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 Smoking Status: Never smoker alcohol intake: never substance use type: denies use current occupational status: employed Travel in the last 8 weeks: None adopted: No caregiver/support person: No household members: spouse and children housing: house lives independently: No marital status: education level: college service: No longterm: No caffeine: Yes special sandi needs: No agree to transfusion: No do you feel safe at home: Yes victim of physical abuse: No victim of emotional abuse: No victim of sexual abuse: No would you like helpful sources: No <Loagn Ortega MD - Last Filed: 10/03/23 15:12> ROS Obtained: Yes All systems reviewed & no additional complaints except as documented Physical Exam <Logan Ortega MD - Last Filed: 10/03/23 15:12> General General appearance: alert and in no apparent distress Head Head exam: atraumatic and normocephalic Eye Eye exam: Present normal appearance, PERRL and EOMI ENT ENT exam: Present mucous membranes moist Neck Neck exam: Present normal inspection, full ROM and trachea midline Respiratory Respiratory exam: Absent respiratory distress, wheezes, stridor, accessory muscle use or prolonged expiratory phase Cardiovascular Cardiovascular exam: Present normal rhythm Abdominal Exam Abdominal exam: Present soft; Absent distention, tenderness, guarding, rebound or rigidity Extremities Exam Extremities exam: Absent edema Neurological Exam Neurological exam: Present alert, oriented X3, CN II-XII intact and normal gait; Absent motor sensory deficit Skin Skin exam: Present warm and dry; Absent diaphoresis or erythema Medical Decision Making <Logan Ortega MD - Last Filed: 10/03/23 15:12> Medical Records Medical records reviewed: Yes I reviewed the patient's medical records. Ray Inquiry Pt receiving controlled substance: No Ray was queried for this patient: No Vital Signs: 10/03/23 12:28 10/03/23 14:00 10/03/23 14:31 Temperature 97.9 F Temperature Source Oral Pulse Rate 97 H 86 Pulse Rate [Right Radial] 94 H Respiratory Rate 18 16 18 Blood Pressure 135/95 H 134/62 Blood Pressure [Right Arm] 154/117 H Blood Pressure Mean 107 86 Blood Pressure Mean [Right Arm] 129 Blood Pressure Source [Right Arm] Automatic Cuff Blood Pressure Position Blood Pressure Position [Right Arm] Sitting 02 Sat by Pulse Oximetry 99 100 100 Oxygen Delivery Method Room Air 10/03/23 15:00 10/03/23 15:30 10/03/23 15:52 Temperature Temperature Source Pulse Rate 87 92 H 80 Pulse Rate [Right Radial] Respiratory Rate 18 18 18 Blood Pressure 122/88 141/88 H 155/91 H Blood Pressure [Right Arm] Blood Pressure Mean 96 104 102 Blood Pressure Mean [Right Arm] Blood Pressure Source [Right Arm] Blood Pressure Position Blood Pressure Position [Right Arm] 02 Sat by Pulse Oximetry 100 98 100 Oxygen Delivery Method 10/03/23 16:00 10/03/23 16:30 10/03/23 17:00 Temperature Temperature Source Pulse Rate 87 94 H 90 Pulse Rate [Right Radial] Respiratory Rate 18 16 18 Blood Pressure 147/90 H 132/87 143/95 H Blood Pressure [Right Arm] Blood Pressure Mean 101 95 105 Blood Pressure Mean [Right Arm] Blood Pressure Source [Right Arm] Blood Pressure Position Blood Pressure Position [Right Arm] 02 Sat by Pulse Oximetry 99 100 100 Oxygen Delivery Method 10/03/23 17:32 Temperature 97.9 F Temperature Source Pulse Rate 99 H Pulse Rate [Right Radial] Respiratory Rate 14 Blood Pressure 143/95 H Blood Pressure [Right Arm] Blood Pressure Mean Blood Pressure Mean [Right Arm] Blood Pressure Source [Right Arm] Blood Pressure Position Sitting Blood Pressure Position [Right Arm] 02 Sat by Pulse Oximetry Oxygen Delivery Method Room Air Lab Data Lab Results 10/03/23 12:44: WBC 8.0, RBC 5.15, Hgb 14.8, Hct 45.9, MCV 89.1, MCH 28.7, MCHC 32.2, RDW 13.1, Plt Count 336, MPV 7.2 L, Neut % (Auto) 71.8, Lymph % (Auto) 21.8, [place] % (Auto) 4.8, Eos % (Auto) 0.6, Baso % (Auto) 1.0, Neut # (Auto) 5.8, Lymph # (Auto) 1.8, [place] # (Auto) 0.4, Eos # (Auto) 0.1, Baso # (Auto) 0.1, Sodium 141, Potassium 4.0, Chloride 106, Carbon Dioxide 29, Anion Gap 10.0, BUN 15, Creatinine 0.80, Estimated Creat Clear 157, Estimated GFR 80, Est GFR ( Amer) 97, Glucose 110 H, Calcium 10.0, Total Bilirubin 0.5, AST 36, ALT 32, Alkaline Phosphatase 78, Troponin I < 0.01, Total Protein 8.3 H, Albumin 4.5, Globulin 3.8 H, Albumin/Globulin Ratio 1.2, Lipase 109, HCG, Quant < 2 10/03/23 13:15: Urine Color Yellow, Urine Appearance Clear, Urine pH 6.5, Ur Specific Edgar 1.025, Urine Protein Negative, Urine Glucose (UA) Negative, Urine Ketones Negative, Urine Blood Negative, Urine Nitrate Negative, Urine Bilirubin Negative, Urine Urobilinogen 0.2, Ur Leukocyte Esterase Negative, Urine RBC None, Urine WBC Occasional, Ur Squamous Epith Cells Occasional, Urine Bacteria None 10/03/23 15:41: Troponin I < 0.01 10/03/23 12:44 10/03/23 12:44 Orders (Tests/Meds): ED MEDICATIONS Discontinued Medications Generic Name Dose Route Start Last Admin Trade Name Freq PRN Reason Stop Dose Admin Acetaminophen 1,000 mg 10/03/23 12:55 10/03/23 13:05 Acetaminophen 1,000mg/100ml Vial IV 10/03/23 12:56 1,000 mg ONCE ONE Administration Dicyclomine HCl 20 mg 10/03/23 16:42 10/03/23 17:00 Dicyclomine 10mg Capsule PO 10/03/23 16:43 20 mg ONCE ONE Administration Lactated Ringer's 1,000 mls @ 999 mls/hr 10/03/23 12:57 10/03/23 13:05 Lactated Ringer's 1000 Ml Bag IV 10/03/23 13:57 999 mls/hr .Q1H1M ONE Administration Ketorolac Tromethamine 15 mg 10/03/23 16:42 10/03/23 17:00 Ketorolac 30mg/Ml Vial IV 10/03/23 16:43 15 mg ONCE ONE Administration Metoclopramide HCl 5 mg 10/03/23 16:42 10/03/23 17:00 Metoclopramide Hcl 10mg/2ml Vial IVP 10/03/23 16:43 5 mg ONCE ONE Administration Ondansetron HCl 4 mg 10/03/23 12:55 10/03/23 13:05 Ondansetron 4mg/2ml Vial IV 10/03/23 12:56 4 mg ONCE ONE Administration Ondansetron HCl 4 mg 10/03/23 13:35 10/03/23 13:39 Ondansetron 4mg/2ml Vial IV 10/03/23 13:36 Not Given ONCE ONE Promethazine HCl 25 mg 10/03/23 13:47 10/03/23 13:50 Promethazine Hcl 25mg/Ml 1ml Vial IV 10/03/23 13:48 25 mg ONCE ONE Administration Sodium Chloride 25 ml 10/03/23 13:47 10/03/23 13:50 Sodium Chloride 0.9% 25ml Bag IV 10/03/23 13:48 25 ml ONCE ONE Administration ORDERS Category Date Time Status CBC w/Auto Diff [Complete Blood Count Auto Diff] Stat Lab 10/03/23 12:44 Completed CMP [Comprehensive Metabolic Panel] Stat Lab 10/03/23 12:44 Completed HCG,Quantitative Stat Lab 10/03/23 12:44 Completed Lipase Stat Lab 10/03/23 12:44 Completed Trop I [Troponin I] Stat Lab 10/03/23 12:44 Completed Troponin I Q3H Lab 10/03/23 15:41 Completed UA [Urinalysis and Microscopic] Stat Lab 10/03/23 13:15 Completed Medical Decision Narrative: 37-year-old female no relevant medical history presenting with vomiting and dizziness. Started at work just before arrival. States that she felt hot, nauseated, then like she was going to throw up. Thought might be her sugar, checked her sugar it was normal. Try to eat sweets, this did not help. No chest pain, shortness of breath, abdominal pain, neurologic deficits, dysuria, hematuria, recent illness, or any other concerns. Better at rest, worse with exertion. Patient is concerned because she has a strong family history of cardiac disease. History was obtained via conversation with patient. On arrival, patient hemodynamically stable, alert, oriented x4, appropriate, GCS 15, moving all extremities spontaneously, pupils equal and reactive to light. Full physical exam performed and significant for not actively retching, but holding vomitus bag. Abdomen is soft, minimally tender if at all, no distention. No flank tenderness. Overall very well-appearing. Neurologically intact with normal cardiopulmonary exam. Differential includes dehydration, ACS, NM, arrhythmia, gastritis, enteritis, pancreatitis, , BPPV, among others. Patient was given fluid bolus, acetaminophen, Zofran for symptomatic management and correction of underlying abnormalities. Workup independently interpreted and significant for nonactionable CBC or chemistry. Trope negative, lipase negative, negative, urine negative. Independent interpretation of EKG shows sinus rhythm [address] or T wave changes concerning for acute ischemia. Incomplete right bundle branch block, but NM, QRS, QT intervals within normal limits. Heart score 0. This information was relayed to patient, she is feeling better after Phenergan, sleepy, of course. States that her nausea and dizziness have largely improved. Given significant family history, I feel it is reasonable for patient to follow-up outpatient with cardiology should her delta troponin be negative, she is agreeable to this plan. Prior to delta troponin, care handed off to oncoming physician. <Fina Nelson, DO - Last Filed: 10/03/23 22:03> Vital Signs: 10/03/23 12:28 10/03/23 14:00 10/03/23 14:31 Temperature 97.9 F Temperature Source Oral Pulse Rate 97 H 86 Pulse Rate [Right Radial] 94 H Respiratory Rate 18 16 18 Blood Pressure 135/95 H 134/62 Blood Pressure [Right Arm] 154/117 H Blood Pressure Mean 107 86 Blood Pressure Mean [Right Arm] 129 Blood Pressure Source [Right Arm] Automatic Cuff Blood Pressure Position Blood Pressure Position [Right Arm] Sitting 02 Sat by Pulse Oximetry 99 100 100 Oxygen Delivery Method Room Air 10/03/23 15:00 10/03/23 15:30 10/03/23 15:52 Temperature Temperature Source Pulse Rate 87 92 H 80 Pulse Rate [Right Radial] Respiratory Rate 18 18 18 Blood Pressure 122/88 141/88 H 155/91 H Blood Pressure [Right Arm] Blood Pressure Mean 96 104 102 Blood Pressure Mean [Right Arm] Blood Pressure Source [Right Arm] Blood Pressure Position Blood Pressure Position [Right Arm] 02 Sat by Pulse Oximetry 100 98 100 Oxygen Delivery Method 10/03/23 16:00 10/03/23 16:30 10/03/23 17:00 Temperature Temperature Source Pulse Rate 87 94 H 90 Pulse Rate [Right Radial] Respiratory Rate 18 16 18 Blood Pressure 147/90 H 132/87 143/95 H Blood Pressure [Right Arm] Blood Pressure Mean 101 95 105 Blood Pressure Mean [Right Arm] Blood Pressure Source [Right Arm] Blood Pressure Position Blood Pressure Position [Right Arm] 02 Sat by Pulse Oximetry 99 100 100 Oxygen Delivery Method 10/03/23 17:32 Temperature 97.9 F Temperature Source Pulse Rate 99 H Pulse Rate [Right Radial] Respiratory Rate 14 Blood Pressure 143/95 H Blood Pressure [Right Arm] Blood Pressure Mean Blood Pressure Mean [Right Arm] Blood Pressure Source [Right Arm] Blood Pressure Position Sitting Blood Pressure Position [Right Arm] 02 Sat by Pulse Oximetry Oxygen Delivery Method Room Air Lab Data Lab Results 10/03/23 12:44: WBC 8.0, RBC 5.15, Hgb 14.8, Hct 45.9, MCV 89.1, MCH 28.7, MCHC 32.2, RDW 13.1, Plt Count 336, MPV 7.2 L, Neut % (Auto) 71.8, Lymph % (Auto) 21.8, [place] % (Auto) 4.8, Eos % (Auto) 0.6, Baso % (Auto) 1.0, Neut # (Auto) 5.8, Lymph # (Auto) 1.8, [place] # (Auto) 0.4, Eos # (Auto) 0.1, Baso # (Auto) 0.1, Sodium 141, Potassium 4.0, Chloride 106, Carbon Dioxide 29, Anion Gap 10.0, BUN 15, Creatinine 0.80, Estimated Creat Clear 157, Estimated GFR 80, Est GFR ( Amer) 97, Glucose 110 H, Calcium 10.0, Total Bilirubin 0.5, AST 36, ALT 32, Alkaline Phosphatase 78, Troponin I < 0.01, Total Protein 8.3 H, Albumin 4.5, Globulin 3.8 H, Albumin/Globulin Ratio 1.2, Lipase 109, HCG, Quant < 2 10/03/23 13:15: Urine Color Yellow, Urine Appearance Clear, Urine pH 6.5, Ur Specific Edgar 1.025, Urine Protein Negative, Urine Glucose (UA) Negative, Urine Ketones Negative, Urine Blood Negative, Urine Nitrate Negative, Urine Bilirubin Negative, Urine Urobilinogen 0.2, Ur Leukocyte Esterase Negative, Urine RBC None, Urine WBC Occasional, Ur Squamous Epith Cells Occasional, Urine Bacteria None 10/03/23 15:41: Troponin I < 0.01 Orders (Tests/Meds): ED MEDICATIONS Discontinued Medications Generic Name Dose Route Start Last Admin Trade Name Freq PRN Reason Stop Dose Admin Acetaminophen 1,000 mg 10/03/23 12:55 10/03/23 13:05 Acetaminophen 1,000mg/100ml Vial IV 10/03/23 12:56 1,000 mg ONCE ONE Administration Dicyclomine HCl 20 mg 10/03/23 16:42 10/03/23 17:00 Dicyclomine 10mg Capsule PO 10/03/23 16:43 20 mg ONCE ONE Administration Lactated Ringer's 1,000 mls @ 999 mls/hr 10/03/23 12:57 10/03/23 13:05 Lactated Ringer's 1000 Ml Bag IV 10/03/23 13:57 999 mls/hr .Q1H1M ONE Administration Ketorolac Tromethamine 15 mg 10/03/23 16:42 10/03/23 17:00 Ketorolac 30mg/Ml Vial IV 10/03/23 16:43 15 mg ONCE ONE Administration Metoclopramide HCl 5 mg 10/03/23 16:42 10/03/23 17:00 Metoclopramide Hcl 10mg/2ml Vial IVP 10/03/23 16:43 5 mg ONCE ONE Administration Ondansetron HCl 4 mg 10/03/23 12:55 10/03/23 13:05 Ondansetron 4mg/2ml Vial IV 10/03/23 12:56 4 mg ONCE ONE Administration Ondansetron HCl 4 mg 10/03/23 13:35 10/03/23 13:39 Ondansetron 4mg/2ml Vial IV 10/03/23 13:36 Not Given ONCE ONE Promethazine HCl 25 mg 10/03/23 13:47 10/03/23 13:50 Promethazine Hcl 25mg/Ml 1ml Vial IV 10/03/23 13:48 25 mg ONCE ONE Administration Sodium Chloride 25 ml 10/03/23 13:47 10/03/23 13:50 Sodium Chloride 0.9% 25ml Bag IV 10/03/23 13:48 25 ml ONCE ONE Administration ORDERS Category Date Time Status CBC w/Auto Diff [Complete Blood Count Auto Diff] Stat Lab 10/03/23 12:44 Completed CMP [Comprehensive Metabolic Panel] Stat Lab 10/03/23 12:44 Completed HCG,Quantitative Stat Lab 10/03/23 12:44 Completed Lipase Stat Lab 10/03/23 12:44 Completed Trop I [Troponin I] Stat Lab 10/03/23 12:44 Completed Troponin I Q3H Lab 10/03/23 15:41 Completed UA [Urinalysis and Microscopic] Stat Lab 10/03/23 13:15 Completed Medical Decision Narrative: 37-year-old female no relevant medical history presenting with vomiting and dizziness. Started at work just before arrival. States that she felt hot, nauseated, then like she was going to throw up. Thought might be her sugar, checked her sugar it was normal. Try to eat sweets, this did not help. No chest pain, shortness of breath, abdominal pain, neurologic deficits, dysuria, hematuria, recent illness, or any other concerns. Better at rest, worse with exertion. Patient is concerned because she has a strong family history of cardiac disease. History was obtained via conversation with patient. On arrival, patient hemodynamically stable, alert, oriented x4, appropriate, GCS 15, moving all extremities spontaneously, pupils equal and reactive to light. Full physical exam performed and significant for not actively retching, but holding vomitus bag. Abdomen is soft, minimally tender if at all, no distention. No flank tenderness. Overall very well-appearing. Neurologically intact with normal cardiopulmonary exam. Differential includes dehydration, ACS, NM, arrhythmia, gastritis, enteritis, pancreatitis, , BPPV, among others. Patient was given fluid bolus, acetaminophen, Zofran for symptomatic management and correction of underlying abnormalities. Workup independently interpreted and significant for nonactionable CBC or chemistry. Trope negative, lipase negative, negative, urine negative. Independent interpretation of EKG shows sinus rhythm [address] or T wave changes concerning for acute ischemia. Incomplete right bundle branch block, but NM, QRS, QT intervals within normal limits. Heart score 0. This information was relayed to patient, she is feeling better after Phenergan, sleepy, of course. States that her nausea and dizziness have largely improved. Given significant family history, I feel it is reasonable for patient to follow-up outpatient with cardiology should her delta troponin be negative, she is agreeable to this plan. Prior to delta troponin, care handed off to oncoming physician. DO Omar: On my assessment of the patient, she is resting comfortably but complains of continued nausea and abdominal cramping. Given this, she was given IV Toradol, oral dicyclomine, and IV Reglan. After this, she did have good improvement. Second troponin was obtained and was also negative. Given reassuring workup, history, and exam, it is felt that the patient is appropriate for discharge home with very close follow-up with primary care as well as cardiology. Strict return precautions were given, the patient was discharged in stable condition after all questions were answered. Critical Care <Logan Ortega MD - Last Filed: 10/03/23 15:12> Critical Care Time Critical Care Time: No
[2023-10-03 14:08] LABS: HCG,Quantitative < 2 mIU/ml (0-5.42)
[2023-10-03 14:13] LABS: Squamous Epithelial Cell,Urine Occasional #/hpf (0-5); WBC,Urine Occasional #/hpf (0-3)
--- NOTE | 2023-10-03 14:32 | ECG_ITS ---
APPROVED REPORT Exam: Resting ECG HR:83 bpm ECG Measurements Heart Rate 83 AXES RI 178 P 66 QRSd 105 QRS 73 QT 370 T 42 QTc 409 Conclusion SINUS RHYTHM INCOMPLETE RIGHT BUNDLE BRANCH BLOCK [90+ ms QRS DURATION, TERMINAL R IN V1/V2, 40+ ms S IN I/aVL/V4/V5/V6] Electronically signed by : ELAYNE BOWERS, 10/03/2023 23:09:21
[2023-10-03 14:36] LABS: Troponin I < 0.01 ng/ml (0.00-0.034)
[2023-10-03 16:32] LABS: Troponin I < 0.01 ng/ml (0.00-0.034)
[2023-10-03] MEDS: KETOROLAC 30MG/ML VIAL 15 MG IV (17:00)
[2023-10-03] MEDS: DICYCLOMINE 10MG CAPSULE 20 MG PO (17:00)
[2023-10-03] MEDS: METOCLOPRAMIDE HCL 10MG/2ML VIAL 5 MG IVP (17:00)
== END 2023-10-03 17:33 | disposition home or self-care (01) ==
PROVIDERS: Emergency Medicine; Emergency Provider Emergency Medicine; PCP Family Medicine
DX: R11.2 Nausea with vomiting, unspecified (principal); R42 Dizziness and giddiness; I10 Essential (primary) hypertension; E78.5 Hyperlipidemia, unspecified
CPT/HCPCS: 80053; 81001; 83690; 84484; 84702; 85025; 93005; 96361; 96374; 96375; 96376; 99284; J0131; J2405

== ENCOUNTER 2023-10-12 16:54 | Outpatient (CLI) | payer OTHER, SELFPAY ==
--- NOTE | 2023-10-12 17:18 | XR_ITS ---
PROCEDURE INFORMATION: Exam: XR Abdomen Exam date and time: 10/12/2023 5:22 PM Age: 37 years old Clinical indication: Constipation; Prior surgery; Surgery date: 6+ months; Surgery type: Gb removed, hysterectomy; Additional info: Chronic contipation TECHNIQUE: Imaging protocol: Radiologic exam of the abdomen. Views: 2 Views. Upright and supine views. COMPARISON: CT ABDOMEN PELVIS W CON 02/05/2023 11:20 PM FINDINGS: Gastrointestinal tract: Nonobstructive bowel gas pattern. Large amount of fecal material throughout the colon. Intraperitoneal space: Right upper quadrant cholecystectomy clips in place. Bones/joints: Unremarkable for age. IMPRESSION: Large amount of fecal material throughout the colon.
== END 2023-10-12 23:59 | disposition home or self-care (01) ==
LOC: RAD 16:54
PROVIDERS: PCP Physician Assistant; Visit Provider Physician Assistant
DX: K59.09 Other constipation (principal)
CPT/HCPCS: 74019

== ENCOUNTER 2023-11-05 10:47 | Emergency (ER) | payer OTHER, SELFPAY ==
[2023-11-05 11:05] VITALS: BP 150/90; PULSE 108; RESP 18; TEMP 37.1; O2SAT 97; BMI 37.1
--- NOTE | 2023-11-05 11:07 | XR_ITS ---
PROCEDURE INFORMATION: Exam: XR Complete Acute Abdomen Series Including Chest Exam date and time: 11/05/2023 11:29 AM Age: 38 years old Clinical indication: Abdominal pain; Other: Right side abdomen and lower back; Patient HX: HX of chronic constipation per PT TECHNIQUE: Imaging protocol: Radiologic exam. Complete acute abdomen series, including 2 or more views of the abdomen and a single view chest. COMPARISON: CR XR ABDOMEN MIN 2V 10/12/2023 5:22 PM FINDINGS: Lungs: Normal. No consolidation. Pleural spaces: Normal. No pleural effusions. No pneumothorax. Heart/Mediastinum: Normal. No cardiomegaly. Gastrointestinal tract: Normal. No bowel dilation. Intraperitoneal space: Normal. No free air. Bones/joints: Normal. No acute fracture. Soft tissues: Normal. Other findings: Moderate stool burden. IMPRESSION: No evidence of acute abnormality.
[2023-11-05 11:16] LABS: UTC Strep Screen (Rapid) Positive (Negative)
--- NOTE | 2023-11-05 11:28 | ED_ITS ---
Discharge Plan Disposition Patient Disposition: Home, Self-Care Condition: Good Prescriptions Prescriptions: New azithromycin 250 mg tablet 250 mg PO DIRECTED Qty: 6 0RF Rx Instructions: Take two (2) tablets on day #1, then one (1) tablet day #2 thru #5 docusate sodium 100 mg capsule 100 mg PO DAILY PRN (Reason: constipation) 3 Days Qty: 3 0RF No Action fluticasone propionate [Flonase Allergy Relief] 50 mcg/actuation spray,suspension 1 - 2 spray intranasal DAILY PRN (Reason: allergies) Rx Instructions: administer into each nostril hydroxyzine HCl 25 mg tablet 25 mg PO QID PRN (Reason: Anxiety) Patient Comments: TAKE ONE TABLET BY MOUTH FOUR TIMES DAILY NEEDED MAY CAUSE DROWSINESS albuterol sulfate 90 mcg/actuation HFA aerosol inhaler 4 inh inhalation Q4H PRN (Reason: cough) Qty: 8.5 0RF omeprazole 40 mg capsule,delayed release(DR/EC) 40 mg PO DAILY Patient Comments: TAKE ONE CAPSULE BY MOUTH EVERY MORNING 30 minutes BEFORE morning meal meloxicam 7.5 mg tablet 7.5 mg PO NEEDED PRN (Reason: Pain (Scale Score 1-3)) Patient Comments: TAKE ONE TABLET BY MOUTH EVERY DAY NEEDED FOR PAIN --TAKE WITH FOOD-- duloxetine 60 mg capsule,delayed release(DR/EC) 60 mg PO DAILY Patient Comments: TAKE ONE CAPSULE BY MOUTH EVERY DAY Linzess 72 mcg capsule 72 mcg PO DAILY PRN (Reason: Constipation) Patient Comments: TAKE ONE CAPSULE BY MOUTH EVERY DAY duloxetine 30 mg capsule,delayed release(DR/EC) 30 mg PO DAILY Patient Comments: TAKE ONE CAPSULE BY MOUTH EVERY DAY hyoscyamine sulfate [Levsin] 0.125 mg tablet 0.125 mg PO QID PRN (Reason: dyspepsia) Qty: 60 0RF Humira(CF) Pen 40 mg/0.4 mL pen injector kit See Rx Instructions .ROUTE .COMPLEX Patient Comments: INJECT THE CONTENTS OF 1 PEN (40 MG / 0.4 ML) SUBCUTANEOUSLY EVERY 14 DAYS Rx Instructions: 40 mg subcutaneously every 2 weeks metoprolol succinate 25 mg tablet extended release 24 hr 25 mg PO DAILY Patient Comments: TAKE ONE TABLET BY MOUTH EVERY DAY Referrals Follow up/Referrals: Narinder Dior MD [Primary Care Provider] - See instructions Activity Restrictions/Add. Instructions Additional Instructions/Restrictions: Start antibiotics today be sure to take it as ordered with the full length of time although you should start feeling better in 24-48 hours. Change toothbrush and toothpaste 24-48 hours after starting antibiotics Tylenol or Motrin as needed for fever or pain Encourage fluids, water, Gatorade, Powerade, try cold fluids, popsicles, ice cream will make it feel better You are contagious for 24 hours. Avoid kissing anyone, no eating or drinking after anyone. You are contagious. Follow-up the ER for new or worsening symptoms or no noticeable improvement over the next 24-48 hours. Follow-up with PCP this week. Clinical Impressions Clinical Impression: Strep throat, Constipation Instructions Patient Instructions: DI for Strep Throat, DI for Constipation Discharge ED Provider: Izabel ([facility] [place] HPI General Stated complaint: abd pain, sore throat, lower back pain, headache Mode of Arrival: Ambulatory Source of Information: Patient Limitations: No Limitations Time Seen by Provider: 11/05/23 11:28 Description of Symptoms (Recalled from Triage Doc. by RN): Pt's symptoms are sore throat, GRIMM, fever, nausea, and constipation. HEENT Symptoms (Recalled from RN notes): Yes Resp Symptoms (Recalled from RN notes): No Skin Symptoms (Recalled from RN notes): No MS Symptoms (Recalled from RN notes): No Functional Status (Recalled from RN notes): n/a History of Present Illness Provider Complaint: 38 yr old female presents for c/o sore throat, GRIMM, fever, nausea, and constipation. pt states Toradol helps her grimm she would like a shot. pt states she has tried numerous things for her constipation otc and nothing see ms to help. Related Data Home Medications Medication Instructions Recorded Confirmed duloxetine 60 mg capsule,delayed 60 mg PO DAILY mood 11/13/22 11/05/23 release linaclotide 72 mcg capsule 72 mcg PO DAILY PRN Constipation 11/13/22 11/05/23 (Linzess) fluticasone propionate 50 1 - 2 spray intranasal DAILY PRN 12/29/22 11/05/23 mcg/actuation nasal allergies spray,suspension (Flonase Allergy Relief) hydroxyzine HCl 25 mg tablet 25 mg PO QID PRN Anxiety 12/29/22 11/05/23 duloxetine 30 mg capsule,delayed 30 mg PO DAILY mood 12/30/22 11/05/23 release adalimumab 40 mg/0.4 mL See Rx Instructions .Route 02/06/23 11/05/23 subcutaneous pen kit (Humira(CF) .COMPLEX Rheumatoid Arthritis Pen) metoprolol succinate 25 mg 25 mg PO DAILY blood pressure 02/06/23 11/05/23 tablet,extended release 24 hr meloxicam 7.5 mg tablet 7.5 mg PO NEEDED PRN Pain 11/05/23 11/05/23 (Scale Score 1-3) omeprazole 40 mg capsule,delayed 40 mg PO DAILY 11/05/23 11/05/23 release Previous Rx's Medication Instructions Recorded hyoscyamine sulfate 0.125 mg 0.125 mg PO QID PRN dyspepsia #60 12/31/22 tablet (Levsin) tabs albuterol sulfate 90 mcg/actuation 4 inh inhalation Q4H PRN cough 07/16/23 aerosol inhaler #8.5 grams azithromycin 250 mg tablet 250 mg PO DIRECTED #6 tabs 11/05/23 docusate sodium 100 mg capsule 100 mg PO DAILY PRN constipation 3 11/05/23 days #3 caps Allergies Allergy/AdvReac Type Severity Reaction Status Date / Time cefaclor [From CECLOR] Allergy Unknown Unknown Verified 11/05/23 11:20 allergy reaction sulfamethoxazole Allergy Unknown Unknown Verified 11/05/23 11:20 [From BACTRIM] allergy reaction trimethoprim [From BACTRIM] Allergy Unknown Unknown Verified 11/05/23 11:20 allergy reaction indomethacin Allergy Verified 11/05/23 11:20 Worker's Comp Is this a Worker's Comp case?: No [facility] Disclaimer: The information contained in this section may have been updated after the patient was seen, as this information can be updated by other users. Medical History , [employer]) Acute bronchopneumonia Back pain Body mass index (BMI) of 35.0 to 35.9 in adult Headache Hyperlipidemia Neck pain Obesity with body mass index (BMI) of 35.0 to 39.9 without comorbidity Sinusitis Viral bronchitis Viral gastroenteritis Vitamin D deficiency Anxiety Hypertension Irritable bowel syndrome with constipation Rheumatoid arthritis Rheumatoid factor positive Migraines Endometriosis Depression Ankylosing spondylitis Hyperlipidemia (~11/22/17) Vitamin D deficiency (~11/22/17) Obesity (BMI 35.0-39.9 without comorbidity) Sinusitis Surgical History , [employer]IST) History of colonoscopy History of tubal ligation History of laparotomy Hx of dilation and curettage History of hysterectomy History of cholecystectomy Family History , [employer]IST) No significant family history Coronary artery disease Cancer Hypertension Stroke 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 , [employer] MER[employer]IST) Smoking Status: Never smoker alcohol intake: never substance use type: denies use current occupational status: employed Travel in the last 8 weeks: None adopted: No caregiver/support person: No household members: spouse and children housing: house lives independently: No marital status: education level: college service: No group home: No caffeine: Yes special sandi needs: No agree to transfusion: No do you feel safe at home: Yes victim of physical abuse: No victim of emotional abuse: No victim of sexual abuse: No would you like helpful sources: No ROS Obtained: Yes All systems reviewed & no additional complaints except as documented Constitutional Constitutional: Reports system reviewed and no additional complaints, except as documented, Reports as per HPI and Reports headache(s) Eyes Eyes: Reports system reviewed and no additional complaints, except as documented ENT Ears, Nose, Mouth, and Throat: Reports system reviewed and no additional complaints, except as documented, Reports as per HPI, Reports headache(s) and Reports sore throat Cardiovascular Cardiovascular: Reports system reviewed and no additional complaints, except as documented Respiratory Respiratory: Reports system reviewed and no additional complaints, except as documented Gastrointestinal Gastrointestingal: Reports system reviewed and no additional complaints, except as documented, as per HPI and constipation Integumentary/Breasts Skin/Breast: Reports system reviewed and no additional complaints, except as documented Neurologic Neurologic: Reports system reviewed and no additional complaints, except as documented and Reports headache(s) Endocrine Endocrine: Reports system reviewed and no additional complaints, except as documented Hematologic/Lymphatic Henatologic/Lymphatic: Reports system reviewed and no additional complaints, except as documented Allergic/Immunologic Allergic/Immunologic: Reports system reviewed and no additional complaints, except as documented Physical Exam General General appearance: alert and in no apparent distress Head Head exam: atraumatic Eye Eye exam: Present normal appearance and PERRL ENT ENT exam: Present mucous membranes moist and TM's normal bilaterally Expanded ENT Exam Throat exam: Present tonsillar erythema, tonsillomegaly and tonsillar exudate Respiratory Respiratory exam: Present normal lung sounds bilaterally Cardiovascular Cardiovascular exam: Present regular rate and normal rhythm Abdominal Exam Abdominal exam: Present soft, tenderness and normal bowel sounds Neurological Exam Neurological exam: Present alert and oriented X3 Skin Skin exam: Present warm and intact Medical Decision Making Medical Records Medical records reviewed: Yes I reviewed the patient's medical records. Ray Inquiry Pt receiving controlled substance: No Ray was queried for this patient: No Vital Signs: 11/05/23 11:05 Temperature 98.7 F Temperature Source Oral Pulse Rate [Right Radial] 108 H Respiratory Rate 18 Blood Pressure [Right Arm] 150/90 H Blood Pressure Mean [Right Arm] 110 Blood Pressure Source [Right Arm] Automatic Cuff Blood Pressure Position [Right Arm] Sitting 02 Sat by Pulse Oximetry 97 Oxygen Delivery Method Room Air Lab Data Lab results reviewed: Yes I reviewed the patient's lab results. Lab Results 11/05/23 11:08: Strep Scn Rapid Clinic Positive A Orders (Tests/Meds): ORDERS Category Date Time Status Acute abdomen XR series [XR acute abdomen series] Stat Exams 11/05/23 11:07 Ordered Procedures Miscellaneous Procedure Procedure Performed: offered soap suds enema- pt wants to do it at home- supplies and instructions given to pt
[2023-11-05] MEDS: KETOROLAC 60MG/2ML VIAL 15 MG IM (12:12)
--- NOTE | 2023-11-05 12:15 | PC.NURSE ---
Pt states that she has received toradol before and does fine with it.
--- NOTE | 2023-11-05 12:33 | PC.NURSE ---
Spoke with pt she stated that she doesn't want to do the enema here. She would feel more comfortable doing at home.
--- NOTE | 2023-11-05 12:54 | PC.NURSE ---
Sent patient home with supplies for soap casie enema and instructed how to do it. She stated that she has done it before. I explained if she has any questions or concerns to come on back up and or call.
[2023-11-05 12:56] VITALS: BP 150/90; PULSE 108; RESP 18; TEMP 37.1; O2SAT 97
== END 2023-11-05 12:55 | disposition home or self-care (01) ==
PROVIDERS: Emergency Provider Nurse Practitioner Family; PCP Family Medicine
DX: J02.0 Streptococcal pharyngitis (principal); R07.0 Pain in throat; K59.00 Constipation, unspecified; R50.9 Fever, unspecified; R51.9 Headache, unspecified
CPT/HCPCS: 74021; 87880; 96372; 99212; 99214; G0463

== ENCOUNTER 2023-12-17 19:36 | Emergency (ER) | payer OTHER, SELFPAY ==
[2023-12-17] VITALS (8 sets, daily range): BP systolic 92–151; BP diastolic 69–102; PULSE 82–101; RESP 12–20; TEMP 36.5–36.6; O2SAT 97–100; BMI 28.7
--- NOTE | 2023-12-17 20:04 | ED_ITS ---
<Statement entered by Everett Blackmon MD - 12/17/23 22:53> I was consulted by the RAQUEL, and we discussed the complexity of the problems being addressed. I approved the treatment and management plan for this patient's care in the emergency department, thus performing a substantive portion of the medical decision making. Everett Blackmon MD, CAMILA, FACEP Discharge Plan Disposition Patient Disposition: Home, Self-Care Condition: Good Prescriptions Prescriptions: New promethazine 25 mg tablet 25 mg PO Q4H PRN (Reason: sedation) Qty: 20 0RF No Action fluticasone propionate [Flonase Allergy Relief] 50 mcg/actuation spray,suspension 1 - 2 spray intranasal DAILY PRN (Reason: allergies) Rx Instructions: administer into each nostril hydroxyzine HCl 25 mg tablet 25 mg PO QID PRN (Reason: Anxiety) Patient Comments: TAKE ONE TABLET BY MOUTH FOUR TIMES DAILY NEEDED MAY CAUSE DROWSINESS albuterol sulfate 90 mcg/actuation HFA aerosol inhaler 4 inh inhalation Q4H PRN (Reason: cough) Qty: 8.5 0RF omeprazole 40 mg capsule,delayed release(DR/EC) 40 mg PO DAILY Patient Comments: TAKE ONE CAPSULE BY MOUTH EVERY MORNING 30 minutes BEFORE morning meal meloxicam 7.5 mg tablet 7.5 mg PO NEEDED PRN (Reason: Pain (Scale Score 1-3)) Patient Comments: TAKE ONE TABLET BY MOUTH EVERY DAY NEEDED FOR PAIN --TAKE WITH FOOD-- azithromycin 250 mg tablet 250 mg PO DIRECTED Qty: 6 0RF Rx Instructions: Take two (2) tablets on day #1, then one (1) tablet day #2 thru #5 docusate sodium 100 mg capsule 100 mg PO DAILY PRN (Reason: constipation) 3 Days Qty: 3 0RF duloxetine 60 mg capsule,delayed release(DR/EC) 60 mg PO DAILY Patient Comments: TAKE ONE CAPSULE BY MOUTH EVERY DAY Linzess 72 mcg capsule 72 mcg PO DAILY PRN (Reason: Constipation) Patient Comments: TAKE ONE CAPSULE BY MOUTH EVERY DAY duloxetine 30 mg capsule,delayed release(DR/EC) 30 mg PO DAILY Patient Comments: TAKE ONE CAPSULE BY MOUTH EVERY DAY hyoscyamine sulfate [Levsin] 0.125 mg tablet 0.125 mg PO QID PRN (Reason: dyspepsia) Qty: 60 0RF Humira(CF) Pen 40 mg/0.4 mL pen injector kit See Rx Instructions .ROUTE .COMPLEX Patient Comments: INJECT THE CONTENTS OF 1 PEN (40 MG / 0.4 ML) SUBCUTANEOUSLY EVERY 14 DAYS Rx Instructions: 40 mg subcutaneously every 2 weeks metoprolol succinate 25 mg tablet extended release 24 hr 25 mg PO DAILY Patient Comments: TAKE ONE TABLET BY MOUTH EVERY DAY Referrals Follow up/Referrals: Narinder Dior MD [Primary Care Provider] - See instructions Activity Restrictions/Add. Instructions Additional Instructions/Restrictions: Please follow-up with your PCP this week. I recommend starting MiraLAX daily. I have sent a prescription for Phenergan into your pharmacy. Return to the ER for any worsening signs or symptoms as needed Clinical Impressions Clinical Impression: Nausea & vomiting Qualifiers: Vomiting type: unspecified Qualified Code(s): R11.2 - Nausea with vomiting, unspecified Instructions Patient Instructions: Nausea and Vomiting-Adult Discharge ED Provider: Everett Blackmon General Adult HPI General Chief complaint: Nausea/Vomiting/Diarrhea Stated complaint: nausea, weak dizzy soa Time Seen by Provider: 12/17/23 19:57 History of Present Illness HPI narrative: Patient presents for evaluation of nausea vomiting abdominal pain but no diarrhea. Patient stated that she started feeling poorly yesterday and initially attributed to her rheumatoid arthritis syndromes. She occasionally feels poorly if she overexerts herself. However she did not have any relief from her normal home remedies. As the days progressed patient has continued to feel nauseated with some vomiting. Patient does not however have any diarrhea. She cannot tell me the last time she had a bowel movement and does not member passing gas today. She is intolerant of oral intake but also has no appetite. She denies chest pain fever chills hemoptysis hematochezia melena hematemesis hematuria. Patient is status post abdominal hysterectomy. Related Data Home Medications Medication Instructions Recorded Confirmed duloxetine 60 mg capsule,delayed 60 mg PO DAILY mood 11/13/22 11/05/23 release linaclotide 72 mcg capsule 72 mcg PO DAILY PRN Constipation 11/13/22 11/05/23 (Linzess) fluticasone propionate 50 1 - 2 spray intranasal DAILY PRN 12/29/22 11/05/23 mcg/actuation nasal allergies spray,suspension (Flonase Allergy Relief) hydroxyzine HCl 25 mg tablet 25 mg PO QID PRN Anxiety 12/29/22 11/05/23 duloxetine 30 mg capsule,delayed 30 mg PO DAILY mood 12/30/22 11/05/23 release adalimumab 40 mg/0.4 mL See Rx Instructions .Route 02/06/23 11/05/23 subcutaneous pen kit (Humira(CF) .COMPLEX Rheumatoid Arthritis Pen) metoprolol succinate 25 mg 25 mg PO DAILY blood pressure 02/06/23 11/05/23 tablet,extended release 24 hr meloxicam 7.5 mg tablet 7.5 mg PO NEEDED PRN Pain 11/05/23 11/05/23 (Scale Score 1-3) omeprazole 40 mg capsule,delayed 40 mg PO DAILY 11/05/23 11/05/23 release Previous Rx's Medication Instructions Recorded hyoscyamine sulfate 0.125 mg 0.125 mg PO QID PRN dyspepsia #60 12/31/22 tablet (Levsin) tabs albuterol sulfate 90 mcg/actuation 4 inh inhalation Q4H PRN cough 07/16/23 aerosol inhaler #8.5 grams azithromycin 250 mg tablet 250 mg PO DIRECTED #6 tabs 11/05/23 docusate sodium 100 mg capsule 100 mg PO DAILY PRN constipation 3 11/05/23 days #3 caps promethazine 25 mg tablet 25 mg PO Q4H PRN sedation #20 tabs 12/17/23 Allergies Allergy/AdvReac Type Severity Reaction Status Date / Time cefaclor [From CECLOR] Allergy Unknown Unknown Verified 11/05/23 11:20 allergy reaction sulfamethoxazole Allergy Unknown Unknown Verified 11/05/23 11:20 [From BACTRIM] allergy reaction trimethoprim [From BACTRIM] Allergy Unknown Unknown Verified 11/05/23 11:20 allergy reaction indomethacin Allergy Verified 11/05/23 11:20 PFSH PFSH Disclaimer: The information contained in this section may have been updated after the patient was seen, as this information can be updated by other users. 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) Acute bronchopneumonia Back pain Body mass index (BMI) of 35.0 to 35.9 in adult Headache Hyperlipidemia Neck pain Obesity with body mass index (BMI) of 35.0 to 39.9 without comorbidity Sinusitis Viral bronchitis Viral gastroenteritis Vitamin D deficiency Anxiety Hypertension Irritable bowel syndrome with constipation Rheumatoid arthritis Rheumatoid factor positive Migraines Endometriosis Depression Ankylosing spondylitis Hyperlipidemia (~11/22/17) Vitamin D deficiency (~11/22/17) Obesity (BMI 35.0-39.9 without comorbidity) Sinusitis Surgical History , 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) History of colonoscopy History of tubal ligation History of laparotomy Hx of dilation and curettage History of hysterectomy History of cholecystectomy Family History , 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) No significant family history Coronary artery disease Cancer Hypertension Stroke 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 , 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) Smoking Status: Never smoker alcohol intake: never substance use type: denies use current occupational status: employed Travel in the last 8 weeks: None adopted: No caregiver/support person: No household members: spouse and children housing: house lives independently: No marital status: education level: college service: No longterm: No caffeine: Yes special sandi needs: No agree to transfusion: No do you feel safe at home: Yes victim of physical abuse: No victim of emotional abuse: No victim of sexual abuse: No would you like helpful sources: No ROS Obtained: Yes Systems reviewed as appropriate & no additional complaints except as documented Physical Exam General General appearance: alert and in no apparent distress Respiratory Respiratory exam: Present normal lung sounds bilaterally Cardiovascular Cardiovascular exam: Present regular rate and normal rhythm Abdominal Exam Abdominal exam: Present soft, tenderness (Mildly diffusely tender to palpation without rebound guarding or rigidity) and diminished bowel sounds (They are quiescent but present); Absent guarding, rebound or rigidity Extremities Exam Extremities exam: Present normal inspection and full ROM Back Exam Back exam: Present normal inspection and full ROM; Absent tenderness Neurological Exam Neurological exam: Present alert and oriented X3 Medical Decision Making Medical Records Medical records reviewed: Yes I reviewed the patient's medical records. Ray Inquiry Pt receiving controlled substance: No Vital Signs: 12/17/23 19:36 12/17/23 20:00 12/17/23 20:30 Temperature 97.7 F Temperature Source Oral Pulse Rate 101 H 98 H Pulse Rate [Right] 98 H Respiratory Rate 16 20 18 Blood Pressure 149/102 H 144/91 H Blood Pressure [Right Arm] 151/97 H Blood Pressure Mean 104 Blood Pressure Mean [Right Arm] 115 Blood Pressure Source [Right Arm] Automatic Cuff Blood Pressure Position [Right Arm] Sitting 02 Sat by Pulse Oximetry 99 97 98 Oxygen Delivery Method Room Air Room Air Room Air 12/17/23 21:15 12/17/23 21:30 Temperature Temperature Source Pulse Rate 86 95 H Pulse Rate [Right] Respiratory Rate 14 16 Blood Pressure 97/76 L 114/70 Blood Pressure [Right Arm] Blood Pressure Mean Blood Pressure Mean [Right Arm] Blood Pressure Source [Right Arm] Blood Pressure Position [Right Arm] 02 Sat by Pulse Oximetry 99 99 Oxygen Delivery Method Room Air Room Air Lab Data Lab results reviewed: Yes I reviewed the patient's lab results. Lab Results 12/17/23 19:53: WBC 6.1, RBC 5.11, Hgb 14.8, Hct 45.2, MCV 88.4, MCH 28.9, MCHC 32.7, RDW 13.2, Plt Count 304, MPV 7.4, Neut % (Auto) 61.6, Lymph % (Auto) 29.4, Mccracken % (Auto) 5.8, Eos % (Auto) 1.7, Baso % (Auto) 1.5, Neut # (Auto) 3.7, Lymph # (Auto) 1.8, M[place]racken # (Auto) 0.4, Eos # (Auto) 0.1, Baso # (Auto) 0.1, Sodium 137, Potassium 3.8, Chloride 106, Carbon Dioxide 25, Anion Gap 9.8, BUN 15, Creatinine 1.00, Estimated Creat Clear 108, Estimated GFR 62, Est GFR ( Amer) 75, Glucose 104 H, Calcium 9.5, Magnesium 2.1, Total Bilirubin 1.3, AST 36, ALT 26, Alkaline Phosphatase 66, Total Protein 8.4 H, Albumin 4.6, Globulin 3.8 H, Albumin/Globulin Ratio 1.2 12/17/23 21:00: Urine Color Yellow, Urine Appearance Clear, Urine pH 5.5, Ur Specific [place] 1.020, Urine Protein Negative, Urine Glucose (UA) Negative, Urine Ketones Negative, Urine Blood Negative, Urine Nitrate Negative, Urine Bilirubin Negative, Urine Urobilinogen 1.0, Ur Leukocyte Esterase Negative, Urine RBC None, Urine WBC 3-5, Ur Squamous Epith Cells 5-10, Urine Bacteria Trace 12/17/23 19:53 12/17/23 19:53 Orders (Tests/Meds): ED MEDICATIONS Discontinued Medications Generic Name Dose Route Start Last Admin Trade Name Vinh PRN Reason Stop Dose Admin Acetaminophen 1,000 mg 12/17/23 20:13 12/17/23 21:11 Acetaminophen 1,000mg/100ml Vial IV 12/17/23 20:14 1,000 mg ONCE ONE Administration Lactated Ringer's 1,000 mls @ 999 mls/hr 12/17/23 20:13 12/17/23 21:10 Lactated Ringer's 1000 Ml Bag IV 12/17/23 21:13 999 mls/hr .Q1H1M ONE Administration Iopamidol 75 ml 12/17/23 20:26 12/17/23 20:27 Iopamidol-370 (76%);100ml Bottle IV 12/17/23 20:27 75 ml ONCE ONE Administration Ketorolac Tromethamine 15 mg 12/17/23 20:13 12/17/23 21:11 Ketorolac 30mg/Ml Vial IV 12/17/23 20:14 15 mg ONCE ONE Administration Promethazine HCl 12.5 mg 12/17/23 20:13 12/17/23 21:10 Promethazine Hcl 25mg/Ml 1ml Vial IV 12/17/23 20:14 12.5 mg ONCE ONE Administration Sodium Chloride 25 ml 12/17/23 20:13 Sodium Chloride 0.9% 25ml Bag IV 12/17/23 20:14 ONCE ONE Sodium Chloride 10 ml 12/17/23 20:26 12/17/23 20:26 Sodium Chloride 0.9% 10ml Syr (Rad Only) IV 12/17/23 20:27 10 ml ONCE ONE Administration ORDERS Category Date Time Status CT abdomen pelvis w con Stat Cat Scan 12/17/23 20:13 Completed CBC w/Auto Diff [Complete Blood Count Auto Diff] Stat Lab 12/17/23 19:53 Completed CMP [Comprehensive Metabolic Panel] Stat Lab 12/17/23 19:53 Completed Lactic Acid Stat Lab 12/17/23 20:13 Ordered Magnesium Stat Lab 12/17/23 19:53 Completed UA [Urinalysis and Microscopic] Stat Lab 12/17/23 21:00 Completed Medical Decision Narrative: In summary patient is a 38-year-old female who presents to the emergency department for evaluation of nausea vomiting and abdominal pain. Patient is hemodynamically stable upon arrival, afebrile. Physical exam is remarkable for mild diffuse abdominal tenderness without rebound guarding or rigidity. Differential diagnosis includes gastroenteritis versus constipation versus bowel obstruction etc. Initial workup will be conducted with hematologic labs CT scan of the abdomen pelvis. Initial interventions include crystalloid bolus Toradol Tylenol Phenergan initial workup reviewed by me hematologic labs are nonactionable and my informal interpretation of her CT scan abdomen pelvis shows a fairly large stool burden but no obvious abnormalities pending radiology read. Upon repeat evaluation reports that her nausea is better as well as her abdominal pain. Patient was able to tolerate p.o. prior to discharge. Given this is appropriate discharge with a prescription for Phenergan and close follow-up with her PCP Critical Care Critical Care Time Critical Care Time: No
--- NOTE | 2023-12-17 20:13 | CT_ITS ---
PROCEDURE INFORMATION: Exam: CT Abdomen And Pelvis With Contrast Exam date and time: 12/17/2023 8:26 PM Age: 38 years old Clinical indication: Nausea and vomiting; Additional info: Nausea vomiting and abdominal pain TECHNIQUE: Imaging protocol: Computed tomography of the abdomen and pelvis with contrast. Radiation optimization: All CT scans at this facility use at least one of these dose optimization techniques: automated exposure control; mA and/or kV adjustment per patient size (includes targeted exams where dose is matched to clinical indication); or iterative reconstruction. Contrast material: ISOVUE; Contrast volume: 75 ml; Contrast route: IV; COMPARISON: CT ABDOMEN PELVIS W CON 02/05/2023 11:20 PM FINDINGS: Liver: Unchanged 7 mm low-density lesion in the posterior segment of the right hepatic lobe which is too small to characterize. Mild focal fat deposition in the left hepatic lobe adjacent to the falciform ligament. No hepatomegaly. Gallbladder and bile ducts: Status post cholecystectomy. No significant biliary ductal dilitation. Pancreas: Normal. No ductal dilation. Spleen: Normal. No splenomegaly. Adrenal glands: Normal. No mass. Kidneys and ureters: Normal. No hydronephrosis. Stomach and bowel: Unremarkable. No obstruction. No mucosal thickening. Appendix: No evidence of appendicitis. Intraperitoneal space: Unremarkable. No free air. No significant fluid collection. Vasculature: Unremarkable. No abdominal aortic aneurysm. Lymph nodes: Unremarkable. No enlarged lymph nodes. Urinary bladder: Unremarkable as visualized. Reproductive: Status post hysterectomy. No adnexal masses. Bones/joints: Partial lumbarization of S1. No significant degenerative changes. Soft tissues: Unchanged small surgical clip just lateral to the mid ascending colon which may represent a fallen cholecystectomy clip. IMPRESSION: No acute findings.
[2023-12-17] MEDS: SODIUM CHLORIDE 0.9% 10ML SYR (RAD ONLY) 10 ML IV (20:26)
[2023-12-17] MEDS: IOPAMIDOL-370 (76%);100ML BOTTLE 75 ML IV (20:27)
[2023-12-17 20:41] LABS: Basophils # 0.1 K/mm3 (0-0.2); Basophils % 1.5 % (0.1-2.0); Eosinophils # 0.1 K/mm3 (0.0-0.4); Eosinophils % 1.7 % (0.1-12.0); Hematocrit 45.2 % (37.0-47.0); Hemoglobin 14.8 g/dL (12.2-16.2); Lymphocytes # 1.8 K/mm3 (0.7-4.5); Lymphocytes % 29.4 % (10-50); Mean Corpuscular HGB Conc 32.7 g/dL (31.8-35.4); Mean Corpuscular Hemoglobin 28.9 pg (27.0-31.2); Mean Corpuscular Volume 88.4 fl (81-99); Mean Platelet Volume 7.4 fl (7.4-10.4); Monocytes # 0.4 K/mm3 (0.1-1.0); Monocytes % 5.8 % (1.7-9.3); Neutrophils # 3.7 K/mm3 (1.8-7.8); Neutrophils % 61.6 % (37.0-80.0); Platelet Count 304 K/mm3 (142-424); Red Blood Count 5.11 M/mm3 (4.20-5.40); Red Cell Distribution Width 13.2 % (11.5-17.5); White Blood Count 6.1 K/mm3 (4.8-10.8)
[2023-12-17 20:42] LABS: Chloride 106 mmol/L (98-107)
[2023-12-17 20:43] LABS: Potassium 3.8 mmoL/L (3.5-5.1); Sodium 137 mmol/L (136-145)
[2023-12-17 20:45] LABS: Alanine Aminotransferase 26 U/L (12-78); Alkaline Phosphatase 66 U/L (38-126); Anion Gap 9.8 mEq/L (5-15); Aspartate Amino Transferase 36 U/L (14-36); Bilirubin,Total 1.3 mg/dl (0.2-1.3); Blood Urea Nitrogen 15 mg/dl (7-17); Carbon Dioxide 25 mmol/L (22.0-30.0); Creatinine Clearance Estimated 108 mL/min (50-200); Estimated Glomerular Filt Rate 62 ml/min (>60); GFR (African American) 75 ML/MIN (>60)
[2023-12-17 20:46] LABS: Albumin Level 4.6 g/dl (3.5-5.0); Albumin/Globulin Ratio 1.2 (1.1-1.8); Calcium 9.5 mg/dl (8.4-10.2); Globulin 3.8 g/dL (1.3-3.2); Glucose 104 mg/dl (74-100); Magnesium 2.1 mg/dl (1.6-2.3); Total Protein,Serum 8.4 g/dl (6.3-8.2)
[2023-12-17 21:05] LABS: Microscopic, Urine URINE MICROSCOPIC (MICROSCOPIC)
[2023-12-17 21:07] LABS: Appearance,Urine CLEAR (Clear); Bilirubin,Urine Negative (Negative); Blood, Urine Negative (Negative); Color,Urine YELLOW (Yellow); Glucose,Urine (UA) Negative (Negative); Ketones,Urine Negative (Negative); Leukocyte Esterase,Urine Negative (Negative); Nitrate,Urine Negative (Negative); PH,Urine 5.5 (5.0-8.5); Protein,Urine Negative (Negative)
[2023-12-17] MEDS: PROMETHAZINE HCL 25MG/ML 1ML VIAL 12.5 MG IV (21:10)
[2023-12-17] MEDS: LACTATED RINGERS 1000ML 1,000 ML 999 ML IV (21:10)
[2023-12-17] MEDS: KETOROLAC 30MG/ML VIAL 15 MG IV (21:11)
[2023-12-17] MEDS: ACETAMINOPHEN 1,000MG/100ML VIAL 1000 MG IV (21:11)
[2023-12-17 21:25] LABS: Bacteria,Urine Trace /lpf
== END 2023-12-17 23:10 | disposition home or self-care (01) ==
PROVIDERS: Physician Assistant; Emergency Provider Student in an Organized Health Care Education/Training Program; PCP Family Medicine
DX: R10.817 Generalized abdominal tenderness (principal); R11.2 Nausea with vomiting, unspecified; M06.9 Rheumatoid arthritis, unspecified; I10 Essential (primary) hypertension; E78.5 Hyperlipidemia, unspecified
CPT/HCPCS: 74177; 80053; 81001; 83735; 85025; 96361; 96374; 96375; 99284; J0131; J1885; J2550; J7120; Q9967

== ENCOUNTER 2024-01-23 13:05 | Outpatient (CLI) | payer OTHER, SELFPAY | END 2024-01-23 23:59 | disposition home or self-care (01) | LOC: RT 13:06 | PROVIDERS: PCP Family Medicine; Visit Provider Physician Assistant | DX: R00.2 Palpitations (principal); R00.0 Tachycardia, unspecified; R07.89 Other chest pain; R06.09 Other forms of dyspnea; Z82.49 Family history of ischemic heart disease and other diseases of the circulatory system; E78.49 Other hyperlipidemia | CPT/HCPCS: 93225; 93227 ==

== ENCOUNTER 2024-01-30 12:05 | Outpatient (CLI) | payer OTHER, SELFPAY ==
[2024-01-30] VITALS (9 sets, daily range): BP systolic 110–148; BP diastolic 70–97; PULSE 63–100; RESP 14–18; TEMP 36.7; O2SAT 96–100; BMI 36.6
--- NOTE | 2024-01-30 12:06 | CT_ITS ---
APPROVED REPORT Tobacco Packer: CLINICAL INDICATION Chest Pain TECHNIQUE Image Acquisition: A 128 slice MDCT scanner ([employer] View) was used for data acquisition. A noncontrast coronary calcium scan was performed. A CT attenuation threshold of 130 Hounsfield units (HU) was used for the detection of calcium in contiguous voxels of 1 sq mm in area to be counted as individual lesions. Bolus tracking in the ascending aorta with a threshold of 180 HU was performed. Immediately afterwards, ECG synchronized cardiac CT was then performed from the cardiac base to apex using retrospective gating with ECG tube current modulation. A total of 85 mL of Isovue 370 mg/mL contrast medium was administered at 5 mL/sec followed by a saline flush using a biphasic injection protocol. A tube voltage of 120 KVp was used. The patient received the following medications prior to the cardiac CT. 150 mg of oral metoprolol 10 mg of intravenous metoprolol 15 mg of oral ivabradine 0.8 mg of sublingual nitroglycerin The average heart rate at the time of acquisition was 62 bpm and regular. Image Reconstruction Transaxial images were reconstructed at 0.67 mm slide thickness. Data was reviewed interactively on an advanced workstation capable of 2 and 3-dimensional displays in all conventional reconstruction formats, including multiplanar reformations, maximum intensity projections, curved multiplanar reformations, and volume rendered reconstructions. When applicable, selected routine images describing the relevant coronary anatomy and pathology were saved and sent to PACS. Complications None Technical Quality Overall image quality was good. Coronary artery opacification was adequate. Total DLP (Dose-Length Product) is 1322.8 mGy-cm. The reported value represents the total of one or more individual components during the CT acquisition of this date and at this time, and as such, the same value may appear in more than one CT report depending on the interpreting/reporting physicians. COMPARISON None FINDINGS CT Coronary Calcium Scoring LMA (Left Main Artery) = 0 LAD (Left Anterior Descending) = 0 LCX (Left Coronary Circumflex) = 0 RCA (Right Coronary Artery) = 0 Total Calcium Score = 0 using the AJ-130 method. The interpretation of the calcium heart score is based on the following continuum*: 0 = no calcified plaque detected (risk of coronary artery disease is very low ??? less than 5%) 1-10 = calcium detected in extremely minimal levels (risk of coronary diseases is still low ??? less than 10%) 11-100 = mild levels of plaque detected with certainty (mild or minimal narrowing of heart arteries is likely) 101-400 = definite,at least moderate levels of plaque detected (relatively high risk of a heart attack within 3-5 years) >401-999 = extensive levels of plaque detected (high risk of heart attack, high levels of vascular disease are present, high likelihood of at least one significant coronary narrowing) *The calcium heart score quantifies the burden of coronary calcification/plaque in the coronary arteries. The calcium heart score is not able to evaluate the presence or burden of non-calcified (i.e. soft) plaque. There is no identifiable calcification in the aortic valve, mitral annulus or mitral valve, pericardium, or myocardium. Coronary CT Angiography The coronary arterial system is right dominant. Quantitative Stenosis Grading: Left Main (LM): The left main originates normally from the left sinus of Valsalva. The LM bifurcates into the left anterior descending artery and left circumflex artery. The LM is patent with no evidence of atherosclerosis. Left Anterior Descending (LAD) and Diagonal Branches: The LAD gives off 3 diagonal branch(es). The
[2024-01-30 12:42] LABS: Chloride 107 mmol/L (98-107); Sodium 138 mmol/L (136-145)
[2024-01-30 12:43] LABS: Potassium 3.6 mmoL/L (3.5-5.1)
[2024-01-30 12:45] LABS: Blood Urea Nitrogen 13 mg/dl (7-17); Creatinine Clearance Estimated 149 mL/min (50-200); Estimated Glomerular Filt Rate 80 ml/min (>60); GFR (African American) 97 ML/MIN (>60)
[2024-01-30 12:46] LABS: Anion Gap 10.6 mEq/L (5-15); Calcium 9.1 mg/dl (8.4-10.2); Carbon Dioxide 24 mmol/L (22.0-30.0); Glucose 88 mg/dl (74-100)
[2024-01-30 12:49] LABS: HCG Qualitative, Serum Negative (Negative)
== END 2024-01-30 23:59 | disposition home or self-care (01) ==
PROVIDERS: PCP Family Medicine; Visit Provider Physician Assistant
DX: R07.89 Other chest pain (principal); Z82.49 Family history of ischemic heart disease and other diseases of the circulatory system; R06.09 Other forms of dyspnea; R00.2 Palpitations; R00.0 Tachycardia, unspecified; E78.49 Other hyperlipidemia
CPT/HCPCS: 75574; 80048; 84703; Q9967

== ENCOUNTER 2024-02-01 07:56 | Outpatient (CLI) | payer OTHER, SELFPAY ==
--- NOTE | 2024-02-01 07:56 | CA_ITS ---
FINAL REPORT TECHNIQUE: Grayscale, color Doppler and duplex Doppler ultrasound of the kidneys, aorta and renal arteries was performed. Multiple velocities were measured. CLINICAL HISTORY: HTN COMPARISON: None FINDINGS: Aorta velocity: 94 cm/sec Right kidney: 10.7 cm. No evidence of hydronephrosis or mass. Right intrarenal RI: 0.63-0.66 Right renal artery velocity: 190 cm/sec. Right RAR (Renal artery-Aortic Ratio): 2.02 Left Kidney: 10.0 cm. No evidence of hydronephrosis or mass. Left intrarenal RI: 0.61-0.63 Left renal artery velocity: 156 cm/sec. Left RAR (Renal Artery-Aortic Ratio): 1.66 IMPRESSION: No evidence of significant renal artery stenosis on the left. Less than 60% renal artery stenosis on the right. CT angiogram or postcontrast MR angiogram would be more sensitive for evaluation of possible renal artery stenosis. Reviewed, Interpreted and Dictated by Johnny Ramos MD Transcribed by Sona Busby Authenticated and [facility]
--- NOTE | 2024-02-01 08:27 | US_ITS ---
FINAL REPORT TECHNIQUE: Ultrasound images of the kidneys and bladder were obtained. CLINICAL HISTORY: R00.2 - Palpitations FINDINGS: The right kidney measures 8.9 cm in length. It is normal in echogenicity. There is no hydronephrosis. The left kidney measures 10.9 cm in length. It is normal in echogenicity. There is no hydronephrosis. The spleen is unremarkable. IMPRESSION: Unremarkable renal ultrasound. Reviewed, Interpreted and Dictated by Johnny Ramos MD Transcribed by Marycarmen Mckenzie Authenticated and [facility]
== END 2024-02-01 23:59 | disposition home or self-care (01) ==
LOC: RT 07:56
PROVIDERS: PCP Family Medicine; Visit Provider Physician Assistant
DX: I10 Essential (primary) hypertension (principal); R00.2 Palpitations; Z82.49 Family history of ischemic heart disease and other diseases of the circulatory system
CPT/HCPCS: 76770; 93976

== ENCOUNTER 2024-02-13 14:05 | Outpatient (CLI) | payer OTHER, SELFPAY ==
[2024-02-13 14:36] LABS: Basophils % 0.7 % (0.1-2.0); Eosinophils # 0.1 K/mm3 (0.0-0.4); Hematocrit 43.7 % (37.0-47.0); Hemoglobin 13.7 g/dL (12.2-16.2); Lymphocytes # 1.6 K/mm3 (0.7-4.5); Lymphocytes % 34.3 % (10-50); Mean Corpuscular HGB Conc 31.4 g/dL (31.8-35.4); Mean Corpuscular Hemoglobin 29.1 pg (27.0-31.2); Mean Corpuscular Volume 92.6 fl (81-99); Mean Platelet Volume 7.8 fl (7.4-10.4); Monocytes # 0.4 K/mm3 (0.1-1.0); Monocytes % 7.5 % (1.7-9.3); Neutrophils # 2.6 K/mm3 (1.8-7.8); Neutrophils % 55.5 % (37.0-80.0); Platelet Count 267 K/mm3 (142-424); Red Blood Count 4.72 M/mm3 (4.20-5.40); Red Cell Distribution Width 13.2 % (11.5-17.5); White Blood Count 4.8 K/mm3 (4.8-10.8)
[2024-02-13 14:59] LABS: Alanine Aminotransferase 40 U/L (12-78); Albumin Level 4.2 g/dl (3.5-5.0); Alkaline Phosphatase 51 U/L (38-126); Anion Gap 9.1 mEq/L (5-15); Aspartate Amino Transferase 37 U/L (14-36); Bilirubin,Indirect 0.6 mg/dL (0.0-0.9); Bilirubin,Total 0.6 mg/dl (0.2-1.3); Bilirubin,Unconjugated 0.7 mg/dL (0.0-1.1); Blood Urea Nitrogen 10 mg/dl (7-17); Carbon Dioxide 26 mmol/L (22.0-30.0); Chloride 108 mmol/L (98-107); Chol/HDL Ratio 4.3 (1-3.5); Cholesterol 200 mg/dl (140-200); Estimated Glomerular Filt Rate 80 ml/min (>60); GFR (African American) 97 ML/MIN (>60); Glucose 81 mg/dl (74-100); HDL Cholesterol 46 mg/dl (40-60); Magnesium 2.1 mg/dl (1.6-2.3); Potassium 4.1 mmoL/L (3.5-5.1); Sodium 139 mmol/L (136-145); Total Protein,Serum 7.2 g/dl (6.3-8.2); Triglycerides 204 mg/dl (30-150); VLDL Cholesterol 41 mg/dL (0-40)
[2024-02-13 15:10] LABS: Direct LDL Cholesterol 96.08 mg/dL (100-129)
[2024-02-13 15:29] LABS: Thyroid Stimulating Hormone 1.28 uIU/mL (0.465-4.68)
== END 2024-02-13 23:59 | disposition home or self-care (01) ==
LOC: LAB 14:06
PROVIDERS: PCP Family Medicine; Visit Provider Nurse Practitioner
DX: R00.2 Palpitations (principal); R00.0 Tachycardia, unspecified; I10 Essential (primary) hypertension
CPT/HCPCS: 36415; 80048; 80061; 80076; 83735; 84439; 84443; 85025; 93270

== ENCOUNTER 2024-02-17 20:22 | Emergency (ER) | payer OTHER, SELFPAY ==
[2024-02-17 20:24] VITALS: BP 156/100; PULSE 109; RESP 17; TEMP 36.8; O2SAT 97; BMI 35.5
--- NOTE | 2024-02-17 20:47 | HMH.EDGENADL ---
Discharge Plan Disposition Patient Disposition: Home, Self-Care Condition: Good Prescriptions Prescriptions: No Action Trulance 3 mg tablet 3 mg PO DAILY ergocalciferol (vitamin D2) 1,250 mcg (50,000 unit) capsule 1,250 mcg PO WEEKLY Patient Comments: TAKE ONE CAPSULE BY MOUTH ONCE A WEEK meclizine 25 mg tablet 25 mg PO DAILY PRN (Reason: Dizziness) Patient Comments: TAKE ONE TABLET BY MOUTH THREE TIMES DAILY NEEDED tizanidine 2 mg tablet 2 mg PO TID Patient Comments: TAKE ONE TABLET BY MOUTH THREE TIMES DAILY montelukast 10 mg tablet 10 mg PO DAILY Patient Comments: TAKE ONE TABLET BY MOUTH EVERY DAY estradiol 0.01 % (0.1 mg/gram) cream 1 appful vaginal DAILY 30 Days Qty: 42.5 4RF Rx Instructions: Please dispose of the applicator and apply a blueberry size amount every night for 2 weeks and then twice weekly for maintenance bremelanotide 1.75 mg/0.3 mL auto-injector 1.75 mg SQ ONCE Qty: 1.2 0RF Rx Instructions: use PRN decreased libido bisoprolol fumarate 5 mg tablet 5 mg PO DAILY Qty: 30 2RF fluticasone propionate [Flonase Allergy Relief] 50 mcg/actuation spray,suspension 1 - 2 spray intranasal DAILY PRN (Reason: allergies) Rx Instructions: administer into each nostril hydroxyzine HCl 25 mg tablet 25 mg PO QID PRN (Reason: Anxiety) Patient Comments: TAKE ONE TABLET BY MOUTH FOUR TIMES DAILY NEEDED MAY CAUSE DROWSINESS omeprazole 40 mg capsule,delayed release(DR/EC) 40 mg PO DAILY Patient Comments: TAKE ONE CAPSULE BY MOUTH EVERY MORNING 30 minutes BEFORE morning meal meloxicam 7.5 mg tablet 7.5 mg PO NEEDED PRN (Reason: Pain (Scale Score 1-3)) Patient Comments: TAKE ONE TABLET BY MOUTH EVERY DAY NEEDED FOR PAIN --TAKE WITH FOOD-- promethazine 25 mg tablet 25 mg PO Q4H PRN (Reason: sedation) Qty: 20 0RF duloxetine 60 mg capsule,delayed release(DR/EC) 60 mg PO DAILY Patient Comments: TAKE ONE CAPSULE BY MOUTH EVERY DAY duloxetine 30 mg capsule,delayed release(DR/EC) 30 mg PO DAILY Patient Comments: TAKE ONE CAPSULE BY MOUTH EVERY DAY Humira(CF) Pen 40 mg/0.4 mL pen injector kit See Rx Instructions .ROUTE .COMPLEX Patient Comments: INJECT THE CONTENTS OF 1 PEN (40 MG / 0.4 ML) SUBCUTANEOUSLY EVERY 14 DAYS Rx Instructions: 40 mg subcutaneously every 2 weeks Referrals Follow up/Referrals: Narinder Dior MD [Primary Care Provider] - See instructions Clinical Impressions Clinical Impression: Fall, Arm pain, left, Left leg pain Stand Alone Forms Stand Alone Forms: Work/School Release Instructions Patient Instructions: DI for Contusion, How to Prevent Falls, DI for Closed Head Injury Print Language Print Language: Beninese Discharge ED Provider: Juan Brower General Adult HPI General Chief complaint: Fall Stated complaint: AO 02/17/24 1600 fell Hit head,left should,leg Time Seen by Provider: 02/17/24 20:47 History of Present Illness HPI narrative: 38-year-old female without reported significant past medical history presents to ED after a fall around 4 PM today in which she fell into a boat hitting her head, left shoulder, left carranza. Patient states she initially felt dizzy however denies any loss of consciousness, denies any blood thinners. Denies further injury at this time. States that she has a small amount of neck pain on the sides of her neck. Denies any other symptoms or concerns at this time including chest pain, shortness of breath, abdominal pain Related Data Home Medications ?Medication ?Instructions ?Recorded ?Confirmed duloxetine 60 mg capsule,delayed 60 mg PO DAILY mood 11/13/22 02/13/24 release fluticasone propionate 50 1 - 2 spray intranasal DAILY PRN 12/29/22 02/13/24 mcg/actuation nasal allergies spray,suspension (Flonase Allergy Relief) hydroxyzine HCl 25 mg tablet 25 mg PO QID PRN Anxiety 12/29/22 02/13/24 duloxetine 30 mg capsule,delayed 30 mg PO DAILY mood 12/30/22 02/13/24 release adalimumab 40 mg/0.4 mL See Rx Instructions .Route 02/06/23 02/13/24 subcutaneous pen kit (Humira(CF) .COMPLEX Rheumatoid Arthritis Pen) meloxicam 7.5 mg tablet 7.5 mg PO NEEDED PRN Pain 11/05/23 02/13/24 (Scale Score 1-3) omeprazole 40 mg capsule,delayed 40 mg PO DAILY 11/05/23 02/13/24 release ergocalciferol (vitamin D2) 1,250 1,250 mcg PO WEEKLY 01/09/24 02/13/24 mcg (50,000 unit) capsule meclizine 25 mg tablet 25 mg PO DAILY PRN Dizziness 01/09/24 02/13/24 montelukast 10 mg tablet 10 mg PO DAILY 01/09/24 02/13/24 plecanatide 3 mg tablet (Trulance) 3 mg PO DAILY 01/09/24 02/13/24 tizanidine 2 mg tablet 2 mg PO TID 01/09/24 02/13/24 Previous Rx's ?Medication ?Instructions ?Recorded promethazine 25 mg tablet 25 mg PO Q4H PRN sedation #20 tabs 12/17/23 bremelanotide 1.75 mg/0.3 mL 1.75 mg (0.3 mL) SQ ONCE #1.2 mL 01/09/24 subcutaneous auto-injector estradiol 0.01% (0.1 mg/gram) 1 appful vaginal DAILY 30 days 01/09/24 vaginal cream #42.5 grams bisoprolol fumarate 5 mg tablet 5 mg PO DAILY #30 tabs 02/13/24 Allergies Allergy/AdvReac Type Severity Reaction Status Date / Time cefaclor [From CECLOR] Allergy Unknown Unknown Verified 02/13/24 13:36 allergy reaction sulfamethoxazole Allergy Unknown Unknown Verified 02/13/24 13:36 [From BACTRIM] allergy reaction trimethoprim [From BACTRIM] Allergy Unknown Unknown Verified 02/13/24 13:36 allergy reaction indomethacin Allergy Verified 02/13/24 13:36 [facility] Disclaimer: The information contained in this section may have been updated after the patient was seen, as this information can be updated by other users. Medical History Acute bronchopneumonia Back pain Body mass index (BMI) of 35.0 to 35.9 in adult Headache Hyperlipidemia Neck pain Obesity with body mass index (BMI) of 35.0 to 39.9 without comorbidity Sinusitis Viral bronchitis Viral gastroenteritis Vitamin D deficiency Anxiety Hypertension Irritable bowel syndrome with constipation Rheumatoid arthritis Rheumatoid factor positive Migraines Endometriosis Depression Ankylosing spondylitis Hyperlipidemia (~11/22/17) Vitamin D deficiency (~11/22/17) Obesity (BMI 35.0-39.9 without comorbidity) Sinusitis Surgical History History of colonoscopy History of tubal ligation History of laparotomy Hx of dilation and curettage x2 History of hysterectomy History of cholecystectomy Family History Other Cancer Coronary artery disease Hypertension No significant family history Stroke 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 Smoking Status: Former smoker tobacco type: cigarettes packs per day: 1 alcohol intake: never substance use type: denies use current occupational status: employed Travel in the last 8 weeks: None adopted: No caregiver/support person: No household members: spouse and children housing: house lives independently: No marital status: education level: college service: No care home: No caffeine: Yes special sandi needs: No agree to transfusion: No do you feel safe at home: Yes victim of physical abuse: No victim of emotional abuse: No victim of sexual abuse: No would you like helpful sources: No ROS Obtained: Yes Systems reviewed as appropriate & no additional complaints except as documented Physical Exam General General appearance: alert and in no apparent distress Head Head exam: atraumatic and normocephalic Eye Eye exam: Present normal appearance, PERRL and EOMI ENT ENT exam: Present normal exam Neck Neck exam: Present normal inspection, full ROM and tenderness (Mild tenderness at paraspinal musculature bilaterally, no tenderness of bony spine to palpation) Chest Chest inspection: Present normal inspection and symmetric chest wall rise; Absent tenderness Respiratory Respiratory exam: Present normal lung sounds bilaterally; Absent respiratory distress, wheezes or stridor Cardiovascular Cardiovascular exam: Present regular rate, normal rhythm and normal heart sounds Abdominal Exam Abdominal exam: Present soft and normal bowel sounds; Absent distention, tenderness or guarding Extremities Exam Extremities exam: Present normal inspection, full ROM, tenderness (Left shoulder mildly tender to palpation anteriorly, left tib-fib and ankle tender to palpation) and normal capillary refill Back Exam Back exam: Present normal inspection; Absent tenderness Neurological Exam Neurological exam: Present alert, oriented X3 and CN II-XII intact; Absent motor sensory deficit Psychiatric Psychiatric exam: Present normal affect and normal mood Skin Skin exam: Present warm, dry, intact and normal color; Absent rash Medical Decision Making Medical Records Medical records reviewed: Yes I reviewed the patient's medical records. Ray Inquiry Pt receiving controlled substance: No Vital Signs: 02/17/24 20:24 02/17/24 21:44 02/17/24 22:55 Temperature 98.2 F 98.2 F Temperature Source Oral Oral Pulse Rate 108 H 98 H Pulse Rate [Right] 109 H Respiratory Rate 17 20 20 Blood Pressure 145/89 H 135/90 Blood Pressure [Right Arm] 156/100 H Blood Pressure Mean [Right Arm] 118 Blood Pressure Source Automatic Cuff Blood Pressure Source [Right Arm] Automatic Cuff 02 Sat by Pulse Oximetry 97 97 Oxygen Delivery Method Room Air Room Air Room Air Orders (Tests/Meds): ED MEDICATIONS Discontinued Medications Generic Name Dose Route Start Last Admin Trade Name Freq PRN Reason Stop Dose Admin Acetaminophen 1,000 mg 02/17/24 21:17 02/17/24 21:41 Acetaminophen 500mg Tab PO 02/17/24 21:18 1,000 mg ONCE ONE Administration Ondansetron HCl 4 mg 02/17/24 21:03 02/17/24 21:41 Ondansetron 4mg Odt SL 02/17/24 21:04 4 mg ONCE ONE Administration ORDERS Category Date Time Status CT head/brain wo con Stat Cat Scan 02/17/24 21:16 Completed Ankle XR - Left 2 Views [XR ankle LT 2V] Stat Exams 02/17/24 21:16 Completed Elbow XR left 2 views [XR elbow LT 2V] Stat Exams 02/17/24 21:16 Completed XR humerus LT Stat Exams 02/17/24 21:00 Completed XR shoulder LT min 2V Stat Exams 02/17/24 21:00 Completed XR tibia fibula LT 2V Stat Exams 02/17/24 21:00 Completed Medical Decision Narrative: Patient with history and exam per above presenting for evaluation of fall, resolved lightheadedness, left shoulder pain, left leg pain Diagnoses considered include intracranial abnormality, spinous abnormality, fracture, dislocation ED workup and treatment included: As above. C-spine cleared clinically with Park CT rules Imaging was independently visualized and interpreted by me, significant for no acute intracranial abnormality, no noted fracture, no noted dislocation, no noted malalignment. Please refer to radiology report for full details. My clinical impression at this time is most consistent with fall, musculoskeletal pain I discussed my clinical impression with patient and answered all questions. At this time, the evidence for any other entities in the differential is insufficient to warrant any further testing or ED observation. This was explained to the patient. The patient was advised that persistent or worsening symptoms require further evaluation. Discharged home with hemodynamically stable vitals and plan to follow-up with primary care provider as needed Critical Care Critical Care Time Critical Care Time: No
--- NOTE | 2024-02-17 21:00 | XR_ITS ---
PROCEDURE INFORMATION: Exam: XR Left Tibia and Fibula Exam date and time: 02/17/2024 9:16 PM Age: 38 years old Clinical indication: Injury or trauma; Fall; Other: Pain; Additional info: Fall, pain TECHNIQUE: Imaging protocol: Radiologic exam of the left tibia and fibula. Views: 2 views. COMPARISON: No relevant prior studies available. FINDINGS: Bones/joints: No acute fractures or dislocation. No lytic or blastic lesions are identified. Soft tissues: Normal. IMPRESSION: No acute fractures or dislocation.
--- NOTE | 2024-02-17 21:00 | XR_ITS ---
PROCEDURE INFORMATION: Exam: XR Left Humerus Exam date and time: 02/17/2024 9:11 PM Age: 38 years old Clinical indication: Injury or trauma; Fall; Other: Pain; Additional info: Fall, pain TECHNIQUE: Imaging protocol: Radiologic exam of the left humerus. Views: 2 or more views. COMPARISON: CR XR SHOULDER LT MIN 2V 02/17/2024 9:08 PM FINDINGS: Bones/joints: No acute fractures or dislocation. No lytic or blastic lesions are identified. Soft tissues: Normal. IMPRESSION: No acute fractures or dislocation.
--- NOTE | 2024-02-17 21:00 | XR_ITS ---
PROCEDURE INFORMATION: Exam: XR Left Shoulder Exam date and time: 02/17/2024 9:08 PM Age: 38 years old Clinical indication: Injury or trauma; Fall; Other: Pain; Additional info: Fall, pain TECHNIQUE: Imaging protocol: Radiologic exam of the left shoulder. Views: 2 or more views. COMPARISON: CA VENOUS DOPPLER UE LT 02/15/2023 9:00 AM FINDINGS: Bones/joints: No acute fractures or dislocation. No lytic or blastic lesions are identified. Soft tissues: Normal. IMPRESSION: No acute fractures or dislocation.
--- NOTE | 2024-02-17 21:16 | CT_ITS ---
PROCEDURE INFORMATION: Exam: CT Head Without Contrast Exam date and time: 02/17/2024 9:39 PM Age: 38 years old Clinical indication: Injury or trauma; Fall; Other: Lightheadedness; Additional info: Fall into boat -- lightheadedness, bleed eval TECHNIQUE: Imaging protocol: Computed tomography of the head without contrast. Radiation optimization: All CT scans at this facility use at least one of these dose optimization techniques: automated exposure control; mA and/or kV adjustment per patient size (includes targeted exams where dose is matched to clinical indication); or iterative reconstruction. COMPARISON: HEADWO CT head/brain wo con 06/20/2018 10:02 AM FINDINGS: Brain: No evidence of mass effect or midline shift. No focal areas of abnormal attenuation. The harrington/white matter interfaces are preserved. The basal cisterns are patent. Cerebral ventricles: No ventriculomegaly. Paranasal sinuses: Visualized sinuses are unremarkable. No fluid levels. Mastoid air cells: Visualized mastoid air cells are well aerated. Bones: Unremarkable. No acute fracture. Soft tissues: Unremarkable. IMPRESSION: No CT evidence of intracranial hemorrhage, mass effect, midline shift or hydrocephalus.
--- NOTE | 2024-02-17 21:16 | XR_ITS ---
PROCEDURE INFORMATION: Exam: XR Left Ankle Exam date and time: 02/17/2024 9:20 PM Age: 38 years old Clinical indication: Injury or trauma; Fall; Other: Pain; Additional info: Fall left ankle pain TECHNIQUE: Imaging protocol: Radiologic exam of the left ankle. Views: 1 or 2 views. COMPARISON: CR Lower leg L 02/17/2024 9:16 PM FINDINGS: Bones/joints: No acute fractures or dislocation. No lytic or blastic lesions are identified. Soft tissues: Normal. IMPRESSION: No acute fractures or dislocation.
--- NOTE | 2024-02-17 21:16 | XR_ITS ---
PROCEDURE INFORMATION: Exam: XR Left Elbow Exam date and time: 02/17/2024 9:23 PM Age: 38 years old Clinical indication: Injury or trauma; Fall; Other: Pain; Additional info: Fall, lue pain TECHNIQUE: Imaging protocol: Radiologic exam of the left elbow. Views: 1 or 2 views. COMPARISON: CR Humerus L 02/17/2024 9:11 PM FINDINGS: Bones/joints: No acute fractures or dislocation. No lytic or blastic lesions are identified. Soft tissues: Normal. IMPRESSION: No acute fractures or dislocation.
[2024-02-17] MEDS: ACETAMINOPHEN 500MG TAB 1000 MG PO (21:41)
[2024-02-17] MEDS: ONDANSETRON 4MG ODT 4 MG SL (21:41)
[2024-02-17 21:44] VITALS: BP 145/89; PULSE 108; RESP 20; O2SAT 97
[2024-02-17 22:55] VITALS: BP 135/90; PULSE 98; RESP 20; TEMP 36.8; O2SAT 98
== END 2024-02-17 22:56 | disposition home or self-care (01) ==
PROVIDERS: Emergency Provider Student in an Organized Health Care Education/Training Program; PCP Family Medicine
DX: M79.602 Pain in left arm (principal); M79.605 Pain in left leg; R42 Dizziness and giddiness; V93.39XA Fall on board unspecified watercraft, initial encounter
CPT/HCPCS: 70450; 73030; 73060; 73070; 73590; 73600; 99284; Q0162

== ENCOUNTER 2024-05-14 12:48 | Outpatient (CLI) | payer OTHER, SELFPAY ==
--- NOTE | 2024-05-14 12:53 | US_ITS ---
FINAL REPORT CLINICAL HISTORY: hx of rt thyroid nodule COMPARISON: 09/28/2023 FINDINGS: Sonographic images of the thyroid gland were obtained. The right thyroid lobe measures 44 mm. in length. The left thyroid lobe measures 45 mm. in length. The thyroid isthmus measures 3 mm. The thyroid gland has a heterogeneous echotexture. Right 17 x 15 x 9 mm solid isoechoic TR 3 nodule. IMPRESSION: Right TR 3 nodule. Consider follow-up in 6 to 12 months per TI-RADS criteria. Reviewed, Interpreted and Dictated by Travon Aguilar III, MD Transcribed by Sona Busby Authenticated and [facility]
--- NOTE | 2024-05-14 12:53 | US_ITS ---
PROCEDURE INFORMATION: Exam: US Right Breast, Complete, Screening Exam date and time: 05/14/2024 12:53 PM Age: 38 years old Clinical indication: Follow-up to prior probably benign finding in the right breast. TECHNIQUE: Imaging protocol: Complete ultrasound of all four quadrants of the right breast and the retroareolar regions, including ultrasound of the axilla when performed. COMPARISON: US BREAST RT COMPLETE 04/01/2022 2:59 PM FINDINGS: ULTRASOUND: Breast ultrasound findings: Sonographic images of the right breast including the retroareolar region, all 4 quadrants and the axilla do not demonstrate any solid or cystic masses. No architectural distortion or acoustical shadowing. No skin thickening or axillary adenopathy. Previously seen cyst at the 10 o'clock axis 7 cm from the nipple is not seen on today's study. IMPRESSION: No sonographic evidence of malignancy. Annual mammographic screening to begin at age 40 is recommended unless otherwise clinically indicated. ASSESSMENT: BI-RADS Category 1: Negative.
== END 2024-05-14 23:59 | disposition home or self-care (01) ==
LOC: RAD 12:49
PROVIDERS: PCP Family Medicine; Visit Provider Physician Assistant
DX: N63.10 Unspecified lump in the right breast, unspecified quadrant (principal); E04.1 Nontoxic single thyroid nodule
CPT/HCPCS: 76536; 76641

== ENCOUNTER 2024-10-08 13:59 | Outpatient (CLI) | payer OTHER, SELFPAY ==
--- NOTE | 2024-10-08 14:03 | US_ITS ---
FINAL REPORT CLINICAL HISTORY: NODULE COMPARISON: Multiple exams dating back to 2021 FINDINGS: THYROID ULTRASOUND FINDINGS: SIZE: Normal ECHOGENICITY: Homogeneous LESIONS: There is an isoechoic TR 3 lesion in the right posterior lobe. This lesion measures 14 x 12 x 7 mm and previously measured 9 x 9 x 8 mm on 09/28/2023. No new lesion is evident. There is no lesion in the left thyroid lobe. OTHER: No additional findings. IMPRESSION: Interval enlargement of TR 3 lesion in the right lobe. Given significant change from 1 year ago ultrasound-guided FNA is recommended. Reviewed, Interpreted and Dictated by Marilu Headley MD Transcribed by Brooklynn Nixon Authenticated and . [facility]
== END 2024-10-08 23:59 | disposition home or self-care (01) ==
LOC: RAD 14:00
PROVIDERS: PCP Physician Assistant; Visit Provider Physician Assistant
DX: E04.1 Nontoxic single thyroid nodule (principal)
CPT/HCPCS: 76536

== ENCOUNTER 2024-10-14 10:53 | Outpatient (CLI) | payer OTHER, SELFPAY ==
--- NOTE | 2024-10-14 10:58 | US_ITS ---
PROCEDURE INFORMATION: Exam: US Right Breast, Complete MG Bilateral Diagnostic Breast Tomosynthesis Exam date and time: 10/14/2024 11:20 AM Age: 38 years old Clinical indication: Focal right breast pain and palpable lump for 2 months TECHNIQUE: Imaging protocol: Complete ultrasound of all four quadrants of the right breast and the retroareolar regions, including ultrasound of the axilla when performed. Bilateral Diagnostic tomosynthesis and 2D mammography including computer-aided detection (CAD) when performed. Unilateral or bilateral exam. COMPARISON: 04/01/2022, 05/14/2024 FINDINGS: MAMMOGRAPHY: Breast composition: There are scattered areas of fibroglandular density. Breast mammogram findings: No new mass, architectural distortion, or suspicious cluster of calcifications has developed to suggest malignancy. No axillary adenopathy. ULTRASOUND: Breast ultrasound findings: Right breast Ultrasound assessment in the region of concern and also all 4 quadrants retroareolar and axilla Only normal glandular structures are present in the regions assessed No suspicious solid or cystic mass is present. No benign-appearing solid or cystic mass is present. No architectural distortion or shadowing is present. No axillary adenopathy is present. IMPRESSION: No mammographic or sonographic evidence of malignancy. Recommend annual screening mammography unless otherwise clinically indicated. ASSESSMENT: BI-RADS category 1: Negative
== END 2024-10-14 23:59 | disposition home or self-care (01) ==
LOC: RAD 10:54
PROVIDERS: PCP Physician Assistant; Visit Provider Nurse Practitioner Family
DX: N64.4 Mastodynia (principal)
CPT/HCPCS: 76641; 77062; 77066; G0279

== ENCOUNTER 2024-10-22 08:36 | Outpatient (CLI) | payer OTHER, SELFPAY ==
--- NOTE | 2024-10-22 09:00 | US_ITS ---
FINAL REPORT CLINICAL HISTORY: RT THYROID NODULE -- DOROTHY GUTIERREZ FINDINGS: Ultrasound guided thyroid biopsy. HISTORY: Thyroid nodule reported from prior exam. PROCEDURE: Preliminary imaging failed to demonstrate a discrete nodule. An area of heterogeneity was identified and this likely corresponds to the reported thyroid nodule. Discussion was made with the patient whether to proceed with a biopsy or follow-up imaging. The patient expressed desire to proceed with biopsy despite the possibility of nondiagnostic results. After informed consent was obtained and a time-out was performed, the patient was prepped and draped in usual sterile fashion over the anterior neck. Utilizing local anesthesia and sterile technique with a 25-gauge needle, access to the area in question was obtained. Four passes were made. The patient received no conscious sedation. The patient tolerated procedure well and left the department in good condition. IMPRESSION: Status post ultrasound guided biopsy of an area of thyroid heterogeneity without immediate complication. Films reviewed , interpreted and dictated by Dr. Ramos. Transcribed by Dorothy Patiño PA-C. Reviewed, Interpreted and Dictated by Johnny Ramos MD Transcribed by MATT Rodarte Authenticated and [facility]
== END 2024-10-22 23:59 | disposition home or self-care (01) ==
LOC: RAD 08:37
PROVIDERS: PCP Physician Assistant; Visit Provider Nurse Practitioner
DX: E04.1 Nontoxic single thyroid nodule (principal)
CPT/HCPCS: 10005

== ENCOUNTER 2024-10-24 15:46 | Outpatient (CLI) | payer OTHER, SELFPAY | END 2024-10-24 23:59 | disposition home or self-care (01) | LOC: RT 15:47 | PROVIDERS: PCP Physician Assistant; Visit Provider Physician Assistant | DX: R00.2 Palpitations (principal) | CPT/HCPCS: 93270 ==

== ENCOUNTER 2024-10-30 16:43 | Outpatient (CLI) | payer OTHER, SELFPAY ==
--- NOTE | 2024-10-30 16:49 | XR_ITS ---
PROCEDURE INFORMATION: Exam: XR Abdomen Exam date and time: 10/30/2024 4:50 PM Age: 39 years old Clinical indication: Constipation; Abdominal pain; Prior surgery; Surgery date: 6+ months; Surgery type: Cholecystectomy TECHNIQUE: Imaging protocol: Radiologic exam of the abdomen. Views: Frontal supine view of the abdomen. 1 View. COMPARISON: CT ABDOMEN PELVIS W CON 12/17/2023 8:26 PM FINDINGS: Tubes, catheters and devices: Metallic clip projects over the right hemiabdomen. Gastrointestinal tract: No significant constipation. No bowel obstruction. Organs: Cholecystectomy. Bones/joints: Unremarkable. IMPRESSION: No significant constipation.
== END 2024-10-30 23:59 | disposition home or self-care (01) ==
LOC: RAD 16:45
PROVIDERS: PCP Physician Assistant; Visit Provider Physician Assistant
DX: K59.00 Constipation, unspecified (principal)
CPT/HCPCS: 74018

== ENCOUNTER 2025-02-17 12:03 | Outpatient (CLI) | payer OTHER, SELFPAY ==
--- OUTSIDE RECORDS SUMMARY | 2024-05-22 11:42 | XMS_ITS | Encounter Summary ---
[facility] Organization [facility] Address [address] [place] [address] Care Team Providers Care Plastics Fitter Name Role Phone Sally Cordova Primary Care Provider [phone] Reason for Visit * Diagnostic Imaging (Routine) - Closed Specialty Diagnoses / Procedures Referred By Franchesca craig Referred To Contact Radiology Diagnoses Abnormal thyroid ultrasound Thyroid antibody positive Procedures US Thyroid Gosia Carpio MD [address] [place] [address] Phone: tel: fax: Referral ID Status Reason Start Date Expiration Date Visits Re quested Visits Authorized [id number] Closed 05/22/2024 05/22/2025 1 1 Encounter Details Date Type Department Care Team (Late st Contact Info) Description 05/22/2024 10:42 AM EST Hospital Encounter [facility] END[facility] [address] [place] [phone] 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 Tobacco Use Types Packs/Day Years [...] as of this encounter Plan of Treatment Upcoming Encounters Date Type Department Care Team (Late st Contact Info) Description 03/25/2025 2:45 PM EDT Office Visit [facility] [address] [facility] [address] [place] [phone] Gosia Carpio MD [address] [facility] [address] [place] [address] documented as of this encounter Procedures Procedure Name Priority Date/Time Associated Diagnosis Comments US THYROID Routine 05/22/2024 10:42 AM EST Abnormal thyroid ultrasound Thyroid antibody positive documented in this encounter Results * US Thyroid (05/22/2024 10:42 AM EST) Narrative SYSTEMGENERATED, DOCUMENTATION - 05/22/2024 10:42 AM EST Please see performing physician's note for result. us Gosia Carpio MD IMG US ORDERABLES Final Result documented in this encounter Visit Diagnoses Not on filedocumented in this encounter Care Teams Plastics Fitter Relationship Specialty Start Date End Date Sally Cordova PA [address] [place] [address] PCP - General Physician Principal Account Clerk 10/17/23 documented as of this encounter
--- OUTSIDE RECORDS SUMMARY | 2024-12-26 12:45 | XMS_ITS ---
Author Organization [facility] Address [address] [facility] [address] [facility] [address] [place], [place] [id number] Care Team Providers Care Title Agent Name Role Phone Sally Cordova Primary Care Provider [phone] Allergies Allergen (clinical drug ingredient) Drug/Non Drug [...] Interpretation:Normal Performing Lab: Notes/Report: Test performed by [facility] [employer] [address] , [address], [place] [address] Ramirez Thomason MD, Professor Of Exercise Science CLIA: [id number] B burgdorferi (Lyme Disease) IgG Negative Negative B burgdorferi (Lyme Disease) IgM Negative Negative P-Comprehensive Metabolic Pa rickie (CMP) Reviewed date:12/31/2024 08:23:56 AM Interpretation:Normal Performing Lab: Notes/Report: Test performed by [facility] [address] [place] [address] , [address], [place] [address] Ramirez Thomason MD, Professor Of Exercise Science CLIA: [id number] Sodium 138 135-145 mmol/L Potassium 4.0 3.5-5.3 [...] 0.7 <0.2-1.2 mg/dL A/G Ratio 1.5 1.1-2.5 T-Y-Vymdnxah Protein (CRP), High Sensitivity Reviewed date:12/31/2024 08:23:56 AM Interpretation:Normal Performing Lab: Notes/Report: Test performed by [facility] [address] [place] [address] , [address], [place] [id number] Ramirez Thomason MD, Professor Of Exercise Science CLIA: [id number] C-Reactive Protein (CRP), High Sensitivity 0.70 <3.01 [...] Interpretation:Normal Performing Lab: Notes/Report: Test performed by [employer], [address] , [address], [place] [address] Ramirez Thomason MD, Professor Of Exercise Science CLIA: [id number] AND Test performed by [facility] [address] [place] [id number] Celia Lemus MD, Professor Of Exercise Science B. burgdorferi Antibody IgG Immunoblot Negative Negative [...] developed and its performance characteristics determined by [facility]. It has not been cleared or approved by the US Food and Drug Administration. This test was performed in a CLIA certified laboratory and is intended for clinical purposes. Performed By: [facility] [address] [place], [place] [id number] Professor Of Exercise Science: Ramón Prakash MD, PhD CLIA Number: [id number] A. phagocytophilum Ab IgG <1:80 <1:80 INTERPRETIVE INFORMATION: A. phagocytophilum (HGA) Antibody, IgG Less than 1:80 - No significant level of IgG antibodies to A. phagocytophilum detected. Greater than or equal to 1:80 - Suggestive of a recent or past infection with A. phagocytophilum. This test was developed and its performance characteristics determined by [facility] [facility]. It has not been cleared or approved by the US Food and Drug Administration. This test was performed in a CLIA certified laboratory and is intended for clinical purposes. P-Sed Rate (ESR) Reviewed date:12/31/2024 08:23:56 AM Interpretation:Normal Performing Lab: Notes/Report: Test performed by [facility] [address] [place] [address] [place] [address] Ramirez Thomason MD, Professor Of Exercise Science CLIA: [id number] Erythrocyte Sedimentation Rate (ESR), Automated 9 <26 mm/hr P-T4 Free (thyroxine) Reviewed date:12/31/2024 08:23:56 AM Interpretation:Normal Performing Lab: Notes/Report: Test performed by [facility] [address] [place] [address] [place] [address] Ramirez Thomason MD, Professor Of Exercise Science CLIA: [id number] Thyroxine Free (free T4) 1.12 0.86-1.76 ng/dL P-TSH Reviewed date:12/31/2024 08:23:56 AM Interpretation:Normal Performing Lab: Notes/Report: Test performed by [facility] [address] [place] [address] [place] [address] Ramirez Thomason MD, Professor Of Exercise Science CLIA: [id number] TSH 1.53 0.43-5.25 mU/L P-Vitamin D 25-Hydroxy Reviewed date:12/31/2024 08:23:56 AM Interpretation:25.4 Performing Lab: Notes/Report: Test performed by [facility] [address] [place] [address] [place] [address] Ramirez Thomason MD, Professor Of Exercise Science CLIA: [id number] Vitamin D 25-Hydroxy 25.4 30.0-100.0 ng/mL Interpretation [...] days Active Vitamin D (Ergocalciferol) 1.25 MG (53217 UT) 1 capsule Orally once a week; Duration: 30 days Active Trulance 3 MG 1 tablet Orally Once a day; Duration: 90 days 12/28/2023 Active Vital Signs Height 67 in 12/26/2024 Weight 188 lbs 12/26/2024 BMI 29.44 kg/m2 12/26/2024 Encounters Encounter Location Date Provider Diagnosis [facility] [address] [place], [place] [phone] 12/26/2024 Sally Cordova Rheumatoid arthritis involving multiple [...] to repo rt test results, Reason: Provider Name:Maggy gallegos, 02/17/2025 11:15:00 AM, [address] [facility] [address], [address], [place], [place], [phone], Progress Notes * CHIKADOB:1985 ([age] yo F)Acc No.[id number]:12/26/2024 Progress Notes Patient: CHIKA KRISHNAMURTHY Provider: [place] Sanchez :1985 A ge:39 Y S ex:Female Date:12/26/2024 Address:[address] [place] [address] Subjective: * Chief Complaints: * 1 . [...] Ablation 12/2012, Colonoscopy 2014, Hysterectomy- Dr. Perea, [facility] 11/30/2014, Laperoscopy 11/19/2019, Colonoscopy, 1 Polyp Removed, Repeat 3 Years 02/22/2023, Thyroid Nodule Biopsy 10/22/2024. * Hospitalization/Major Diagno stic Procedure: M igraine, Lumbar Puncture- [facility] 04/04-10/2017, Migraine- [facility] 06/20/2018, Abdominal Pain, Constipation- [facility] 12/17-, Aura Migraine- [facility] 03/13/2020, Elevated BP- [facility] 07/15/2021, Abdominal Pain, Vomiting- [facility] 12/26/2022, Abdominal Pain, Vomiting- [facility] 12/28/2022, Abdominal Pain, Vomiting- [facility] 12/29-12/31/2022, Abdominal Pain, Vomiting- [facility] 02/05-05/2023. * Family History: F ather: [...] , Taking Vitamin D (Ergocalciferol) 1.25 MG (62670 UT) Capsule 1 capsule Orally once a [...] 12/30/2024 1 1:24:52 PM EDT >sent to [facility] 12/31/2024 08:23:44 AM EDT > Noted ?LAB: P-Sed Rate (ESR) (Collection Date & Time - 12/26/2024 12:03 PM)?Normal * Value Reference Range E rythrocyte Sedimentation Rate (ESR), Automated 9 <26 - mm/hr * Sally Cordova 12/30/2024 1 1:24:52 PM EDT >sent to [facility] 12/31/2024 08:23:44 AM EDT > Noted 2.?Thyroid nodule?LAB: P-T4 Free (thyroxine) (Collection Date & Time - 12/26/2024 12:03 PM)? Normal* Value Reference Range T hyroxine Free (free T4) 1.12 0.86-1.76 - ng/d L * Sally Cordova 12/30/2024 1 1:24:52 PM EDT >sent to [facility] 12/31/2024 08:23:44 AM EDT > Noted ?LAB: P-TSH (Collection Date & Time - 12/26/2024 12:03 PM)?Normal* Value Reference Range T SH 1.53 0.43-5.25 - mU/L * Sally Cordova 12/30/2024 1 1:24:52 PM EDT >sent to [facility] 12/31/2024 08:23:44 AM EDT > Noted 3.?Fatigue, unspecified type?LAB: P-Lyme Disease (B. burgodorferi), IgG/IgM, BIN, Serum (Collection Date & Time - 12/26/2024 12:03 PM)?Normal* Value Reference Range B burgdorferi (Lyme Disease) IgG Negative Negative - * B burgdorferi (Lyme Disease) IgM Negative Negative - * MalcolmShmuel eldridgeselina Parham 12/30/2024 1 1:24:52 PM EDT >sent to [facility] 12/31/2024 08:23:44 AM EDT > Noted ?LAB: P-T4 Free (thyroxine) (Collection Date & Time - 12/26/2024 12:03 PM)? Normal* Value Reference Range T hyroxine Free (free T4) 1.12 0.86-1.76 - ng/d L * Tasha Sally S 12/30/2024 1 1:24:52 PM EDT >sent to [facility] 12/31/2024 08:23:44 AM EDT > Noted ?LAB: P-TSH (Collection Date & Time - 12/26/2024 12:03 PM)?Normal* Value Reference Range T SH 1.53 0.43-5.25 - mU/L * MalcolmjazmynSally Dione 12/30/2024 1 1:24:52 PM EDT >sent to [facility] 12/31/2024 08:23:44 AM EDT > Noted ?LAB: Influenza Screen (in house) (Collection Date & Time - 12/26/2024)* Value Reference Range r esults Neg * [facility] 12/26/2024 11:12: 44 AM EDT > Provider [...] B M Interpretation See Below - * [facility], support 12/30/2024 05:45:07 : This order was created by the Interface. Sally Cordova Dione 12/30/2024 11:24:52 PM EDT >sent to Chika Almaguer 12/31/2024 08:23:44 AM EDT > Noted * Procedure Codes: 8 5025 CBC WITH AUTO DIFF, 10210 VENIPUNCT, ROUTINE*, 64542 Flu Test- Nasal Swab, Modifiers: QW , 03384 COVID TEST IN HOUSE, Modifiers: QW * Follow Up: v ia phone to report test results * Images: Billing Information: * Visit Code: 36910 Office Visit, Est Pt., Level 4. * Procedure Codes: 93483 CBC WITH AUTO DIFF. 75578 VENIPUNCT, ROUTINE*. 86120 Flu Test- Nasal Swab. Modifiers: QW 82860 COVID TEST IN HOUSE. Modifiers: QW * Electronic signature of M[place] Gutierrez on 02/17/2025 at 12:06 PM EDT Sign off status: Pending * Provider: [place] Sanchez Date: 0 12/26/2024 Generated for Odin schneider/Antoni/eTransmitting on: 0 02/17/2025 12:06 PM EDT History and Physical Notes * [...]
--- OUTSIDE RECORDS SUMMARY | 2025-02-07 11:30 | XMS_ITS ---
Author Organization [facility] Address [address] [facility] [address] [phone] Care Team Providers Care Strings Teacher Name Role Phone Sally Cordova Primary Care [...] days Active Vitamin D (Ergocalciferol) 1.25 MG (43226 UT) 1 capsule Orally once a week; [...] Location Date Provider Diagnosis [facility] [address] [place] [phone] 02/07/2025 Sally Cordova Plan Of Treatment Next Appt Details Provider Name:Maggy gallegos, 02/17/2025 11:15:00 AM, [address], [place], [place], [phone], Progress Notes * ANA RAUSCHLUIS DANIELDOB:1985 ([age] yo F)Acc No.[id number]:02/07/2025 Progress Notes Patient: TAMMY KRISHNAMURTHY Provider: [place] Sanchez :1985 A ge:39 Y S ex:Female Date:02/07/2025 Address:[address] [place] [address] Subjective: * Chief Complaints: * 1 . [...] Ablation 12/2012, Colonoscopy 2014, Hysterectomy- Dr. Perea, [facility] 11/30/2014, Laperoscopy 11/19/2019, Colonoscopy, 1 Polyp Removed, Repeat 3 Years 02/22/2023, Thyroid Nodule Biopsy 10/22/2024. * Hospitalization/Major Diagno stic Procedure: Robel montenegro, Lumbar Puncture- [facility] 04/04-10/2017, Migraine- [facility] 06/20/2018, Abdominal Pain, Constipation- [facility] 12/17-, Aura Migraine- [facility] 03/13/2020, Elevated BP- [facility] 07/15/2021, Abdominal Pain, Vomiting- [facility] 12/26/2022, Abdominal Pain, Vomiting- [facility] 12/28/2022, Abdominal Pain, Vomiting- [facility] 12/29-12/31/2022, Abdominal Pain, Vomiting- [facility] 02/05-05/2023. * Family History: F ather: [...] Stroke, Heart Disease. S iblings: alive. C chandni: alive. 2 brother(s) , [...] , Taking Vitamin D (Ergocalciferol) 1.25 MG (81314 UT) Capsule 1 capsule Orally once a [...] status: Pending * Provider: [place] Sanchez Date: 02/07/2025 Generated for Odin schneider/Antoni/Stacia on: 02/17/2025 12:06 PM EDT History and Physical [...]
--- NOTE | 2025-02-17 12:06 | XR_ITS ---
FINAL REPORT CLINICAL HISTORY: ACUTE CONSTIPATION COMPARISON: None FINDINGS: Chest: The heart and mediastinal within normal limits. The lungs are clear. There is no pneumothorax. Osseous structures are unremarkable. Abdomen: AP and upright views of the abdomen were obtained. There is a moderate amount of stool throughout the colon. Surgical clips are present in the right upper quadrant. No abnormal calcifications are identified. IMPRESSION: No acute cardiopulmonary process. Moderate stool burden. Reviewed, Interpreted and Dictated by Johnny Ramos MD Transcribed by Sona Busby Authenticated and [facility]
--- OUTSIDE RECORDS SUMMARY | 2025-02-17 12:06 | XMS_ITS | Clinical Summary ---
Author Organization [facility] Address [address] [place] [address] Care Team Providers Care Medical Receptionist Biller Name Role Phone Sally Cordova Primary Care Provider [phone] Allergies Active Allergy Reactions Criticality Noted Date Comments Cefaclor Anaphylaxis,Unknown (See Comments) High 08/27/2015 Other reaction(s): Unknown Indomethacin Dizziness,Headache,P al pitations,Shortness Of Breath,Unknown (See Comments) High 08/22/2018 Other reaction(s): Dizziness, Headache, Unknown Metoclopramide Hallucinations,Unkno wn (See Comments) Medium 11/23/2015 Other reaction(s): Hallucinations, Unknown Other Other (See Comments) Low 02/26/2016 Other reaction(s): Other Ceclor, Reglan Ceclor, Reglan Metoclopramide Hcl Hallucinations High 06/03/2024 Sulfamethoxazole Hives,Unknown - Low Severity High 12/29/2022 Sulfamethoxazole-Trimeth oprim Hives,Unknown (See Comments) Medium 08/27/2015 Bactrim Trimethoprim Hives,Unknown - Low Severity High 12/29/2022 Medications Adalimumab (Humira, 2 Pen,) 40 MG/0.8ML Auto-injector Kit Ac tive cyclobenzaprine (FLEXERIL) 10 MG tablet Active DULoxetine (CYMBALTA) 30 MG capsule Active DULoxetine (CYMBALTA) 60 MG capsule Active vitamin D (ERGOCALCIFEROL) 1.25 MG (47201 UT) capsule capsule Take 1 capsule by mouth 1 (One) Time Per Week. 4 Active meclizine (ANTIVERT) 25 MG tablet Take 1 tablet by mouth 3 (Three) Times a Day As Needed. Active metoprolol succinate XL (TOPROL-XL) 25 MG 24 hr tablet 2 tablets. 4 Active montelukast (SINGULAIR) 10 MG tablet 1 tablet. 4 Active omeprazole (priLOSEC) 40 MG capsule Active ondansetron ODT (ZOFRAN-ODT) 4 MG disintegrating tablet Active predniSONE (DELTASONE) 10 MG tablet Take 1 tablet by mouth. 4 Active tiZANidine (ZANAFLEX) 2 MG tablet Take 1 tablet by mouth 3 (Three) Times a Day As Needed. Active Trulance 3 MG tablet Take 1 tablet by mouth Daily. Active promethazine (PHENERGAN) 25 MG tablet 1 tablet. 4 Active naproxen (Naprosyn) 500 MG tablet Take 1 tablet by mouth 2 (Two) Times a Day With Meals. Take 1 tablet (500 mg) by oral route 2 times every day with food 60 tablet 4 4 Active Active Problems Problem Noted Date Diagnosed Date Rheumatoid arthritis involving multiple sites Assessment & Plan (06/03/2024 1:45 PM EST): Serologic status unknown certain as notes have reported positive rheumatoid factor and negative rheumatoid factor. Initially diagnosed with ankylosing spondylitis. Failed leflunomide and indomethacin. Humira started approximately 2021. She is complaining of diffuse pain, especially bad in the neck, back, hands, and knees. She exhibits no synovitis on exam today. It is notable that she has fibromyalgia tender points. Her diagnosis is not completely clear to me given previous diagnosis of rheumatoid arthritis and of ankylosing spondylitis. I will restage her disease. I will x-ray her hands, sacroiliac joints, knees, and feet. I will discontinue meloxicam and have her try naproxen 500 mg twice daily. Continue Humira. I will see her in follow-up in about 6 to 8 weeks. Orders: 14.3.3 ETA, Rheum. Arthritis; Future CBC Auto Differential; Future Comprehensive Metabolic Panel; Future C-reactive Protein; Future Cyclic Citrul Peptide Antibody, IgG / IgA; Future Rheumatoid Factor; Future Sedimentation Rate; Future XR Hand 2 View Bilateral XR Foot 3+ View Bilateral Chronic midline back pain 06/03/2024 Assessment & Plan (06/03/2024 1:45 PM EST): She has pain from her neck to her pelvis. Questionable previous diagnosis of ankylosing spondylitis. Orders: HLA-B27 Antigen; Future XR Sacroiliac Joints 3+ View Chronic pain of both knees 06/03/2024 Assessment & Plan (06/03/2024 1:45 PM EST): Exam is unremarkable. I will x-ray today. 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 We discussed biologic agents at length. Risks and alternative were discussed at length and the option of no treatment was also given. We discussed risks including but not limited to infections which can be unusual, severe, and deadly. When possible, these agents should be stopped immediately if infections occur. Unusual infection such as TB and fungal infections can occur. There may be an increased risk of lymphoma with these agents. Other risks can include are multiple sclerosis like illness and worsening of the failure. Infusion or injection reactions whish can be delay have been reported. Reactivation of deadly brain viruses have been reported. Worsening of COPD has been seen with Orencia. Elevated lipids, elevations in liver functions, and dangerous changes in blood counts have been seen with certain agents. Regular monitoring will be required. Chronic fatigue 06/03/2024 Assessment & Plan (06/03/2024 1:45 PM EST): Orders: Hepatitis Panel, Acute; Future QuantiFERON TB Plus Client Incubated; Future Positive ROSARIO (antinuclear antibody) 06/03/2024 Assessment & Plan (06/03/2024 1:45 PM EST): She apparently had a positive direct ROSARIO. Positive ROSARIO can be caused by biologic treatment. Orders: ROSARIO by IFA, Reflex 9-biomarkers profile; Future C4+C3; Future Urinalysis With Culture If Indicated -; Future dsDNA Antibody by IFA, Jeri sharma, with Reflex to Titer; Future XR Chest 2 View technician terminal and repeater (current) use of n on-steroidal anti-inflammatories (nsaid) 06/03/2024 Assessment & Plan (06/03/2024 1:45 PM EST): Failed indomethacin and meloxicam Risks of nonsteroidal anti-inflammatory drugs discussed including GI upset, GI bleeding, renal and hepatic risk, and the risks of cardiovascular disease. Warned not to take with other NSAIDs including [id number] NSAIDs. Family History Medical History Relation Name Comments Hypertension Mother Hypothyroidism Mother Relation Name Status Comments Mother 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 Tobacco Use Types Packs/Day Years Used Date Smoking Tobacco: Never Passive Smoke Exposure: Never Smokeless Tobacco: Never Tobacco Cessation:Counseling Given: Not Answered Alcohol Use Standard Drinks/Week Comments Never 0 (1 standard drink = 0.6 oz pur e alcohol) Comments Unknown Sex and Gender Information Value Date Recorded Sex Assigned at Not on file Legal Sex Female 12:45 PM EST Gender Identity Not on file Sexual Orientation Not on file Last Filed Vital Signs Vital Sign Reading Time Taken Comments Blood Pressure 118/74 06/03/2024 12:46 PM EST Pulse 88 06/03/2024 12:46 PM EST Temperature 36.3 C (97.4 F) 06/03/2024 12:46 PM EST Respiratory Rate - - Oxygen Saturation - - Inhaled Oxygen Concentration - - Weight 92.9 kg (204 lb 14.4 oz) 024 12:46 PM EST Height 167.6 cm (5' 6 ) 06/03/2024 12:4 6 PM EST Body Mass Index 33.07 06/03/2024 12:46 PM EST Plan of Treatment Upcoming Encounters Date Type Department Care Team (Late st Contact Info) Description 03/25/2025 2:45 PM EDT Office Visit [facility] [address] [place] [id number] Gosia Carpio MD [address] [place], [place] [id number] Health Maintenance Due Date Last Done Comments Annual Gynecologic Pelvic an d Breast Exam 1984 Pneumococcal Vaccine 0-49 (1 of 2 - PCV) 10/30/2003 COVID-19 Vaccine (2 - Modern a risk series) 06/07/2021 05/10/2021 ANNUAL PHYSICAL 02/08/2024 MAMMOGRAM 2024 INFLUENZA VACCINE 04/02/2025 05/17/2024, , 06/16/2014, Additional history exists TDAP/TD VACCINES (2 - Td or Tdap) 03/03/2026 016 HEPATITIS C SCREENING Completed 06/03/2024 Procedures Procedure Name Priority Date/Time Associated Diagnosis Comments HEPATITIS PANEL, ACUTE Routine 06/03/2024 2:02 PM EST Chronic fatigue from Last 3 Months or Most Recently Relevant to Health Maintenance Results * Hepatitis Panel, Acute (06/03/2024 2:02 PM EST) Hepatitis B Surface Ag Non-Reacti ve Non-Reacti ve 06/03/2024 11:16 PM EST [facility] Hep A IgM Non-Reacti ve Non-Reacti ve 06/03/2024 11:16 PM EST [facility] Hep B C IgM Non-Reacti ve Non-Reacti ve 06/03/2024 11:16 PM EST [facility] Hepatitis C Ab Non-Reacti ve Non-Reacti ve 06/03/2024 11:16 PM EST [facility] Blood Venipuncture / Unknown 06/03/2024 2:02 PM EST 06/03/2024 2:02 PM EST Narrative [facility] - 06/03/2024 11:16 PM EST Results may be falsely decreased if patient taking Biotin. Mario Mensah MD LAB BLOOD ORDERABLES Final Res ult [facility]
[address] [place] [address], from Last 3 Months or Most Recently Relevant to Health Maintenance Insurance [facility] Care Teams Medical Receptionist Biller Relationship Specialty Start Date End Date Sally Cordova PA [address] [place] [address] [facility] [address] [place] [id number] PCP - General Physician Tip Tester 10/17/23
--- OUTSIDE RECORDS SUMMARY | 2025-02-17 12:06 | XMS_ITS | Referral Summary ---
Author Organization [employer] ([place], [place], [place], [place]) Address [address] [place] [address] Care Team Providers Care Nuclear Radiation Engineer Name Role Phone Narinder Dior MD Primary Care Provider + [phone] Allergies Active Allergy Reactions Criticality Noted Date Comments Sulfamethoxazole-Trimetho prim 08/02/2022 Cefaclor Anaphylaxis High 08/27/2015 Other reaction(s): Unknown Indomethacin Palpitations,Shortne ss Of Breath High 08/22/2018 Other reaction(s): Dizziness, Headache, Unknown Metoclopramide Medium 11/23/2015 Other reaction(s): Hallucinations, Unknown Other Low 02/26/2016 Other reaction(s): Other Ceclor, Reglan Sulfamethoxazole Hives High 12/29/2022 Trimethoprim Hives High 12/29/2022 Medications DULoxetine (CYMBALTA) 30 MG capsule Take 1 capsule (30 mg total) by mouth daily. 12/14/19 23 Active DULoxetine (CYMBALTA) 60 MG capsule Take 1 capsule (60 mg total) by mouth daily. 12/10/19 23 Active montelukast (SINGULAIR) 10 mg tablet Take 1 tablet (10 mg total) by mouth daily. 11/25/19 23 Active cyclobenzaprine (FLEXERIL) 10 MG tablet Active hydrOXYzine (ATARAX) 25 MG tablet Take by mouth. 04/22/20 23 Active metoprolol succinate (TOPROL-XL) 25 MG 24 hr tablet Take 1 tablet (25 mg total) by mouth daily. 10/10/20 23 Active tiZANidine (ZANAFLEX) 2 MG tablet Take 1 tablet (2 mg total) by mouth 3 (three) times daily. 04/14/20 23 Active omeprazole (PriLOSEC) 40 MG capsule Take 1 capsule (40 mg total) by mouth every morning. 05/13/20 23 Active ondansetron (ZOFRAN-ODT) 4 MG disintegrating tablet Take 1 tablet (4 mg total) by mouth. 07/19/19 24 Active promethazine (PHENERGAN) 12.5 MG tablet Take 1 tablet (12.5 mg total) by mouth every 6 (six) hours as needed. 06/22/20 23 Active adalimumab (Humira,CF, Pen) 40 mg/0.4 mL PnKtIndications:Rh eumatoid arthritis involving multiple sites with positive rheumatoid factor (HCC) Inject 40 mg subcutaneously once every 2 weeks. 1 kit 5 11/30/19 24 Active ergocalciferol (ERGOCALCIFEROL) 1,250 mcg (50,000 unit) capsuleIndications :Vitamin D deficiency Take 1 capsule (50,000 Units total) by mouth once a week. 12 capsule 1 11/30/19 24 Active meloxicam (MOBIC) 7.5 MG tabletIndications: Spondylosis of cervical region without myelopathy or radiculopathy Take 1 tablet (7.5 mg total) by mouth 2 (two) times daily as needed for Pain. 60 tablet 5 11/30/19 24 Active predniSONE (DELTASONE) 10 MG tabletIndications: Rheumatoid arthritis involving multiple sites with positive rheumatoid factor (HCC) Take 1 tablet (10 mg total) by mouth daily as needed. 20 tablet 11/30/19 24 Active Active Problems No known active problems 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 Tobacco Use Types Packs/Day Years Used Date Smoking Tobacco: Former Smokeless Tobacco: Current Tobacco Cessation:Ready to Q uit: Not Asked; Counseling Given: Not Answered Alcohol Use Standard Drinks/Week Comments Not Currently 0 (1 standard drink = 0.6 oz pur e alcohol) Food Insecurity Answer Date Recorded Food run out past 12 months Not on file 07/03 Food did not last past 12 months Not on file 07/19/2023 Employment Answer Date Recorded Help finding and keeping a job Not on file 0 07/19/2023 Family and Community Support Answer Dilan e Recorded Help with Day to Day Activities Not on file 07/19/2023 Feeling Lonely or Isolated Not on file 07/19 Educational Attainment Answer Date Tremaine rded Speak language other than [place] at home Not on file 07/19/2023 Want help with school or training Not on file 07/19/2023 Substance Use Answer Date Recorded Used prescription meds for non-medical reasons N ot on file 07/19/2023 Used illegal drugs past 12 months Not on file 07/19/2023 Comments Unknown Sex and Gender Information Value Date Recorded Sex Assigned at Female 01/04/2022 8:29 PM CDT Legal Sex Female 6:22 PM CDT Gender Identity Female 01/04/2022 8:29 PM CDT Sexual Orientation Straight 10/11/2022 10 :00 AM CDT Last Filed Vital Signs Vital Sign Reading Time Taken Comments Blood Pressure 135/88 11/30/2023 2:07 PM EDT Pulse 88 11/30/2023 2:07 PM EDT Temperature 36.7 C (98.1 F) 12/21/2022 9:31 AM EDT Respiratory Rate 18 11/30/2023 2:07 PM EDT Oxygen Saturation 98% 11/30/2023 2:07 PM EDT Inhaled Oxygen Concentration - - Weight 105 kg (231 lb 6.4 oz) 11/30/2023 2:07 PM EDT Height 167.6 cm (5' 6 ) 11/30/2023 2:07 PM EDT Body Mass Index 37.35 11/30/2023 2:07 PM EDT Plan of Treatment Not on file Insurance [facility] Care Teams Nuclear Radiation Engineer Relationship Specialty Start Date End Date Narinder Dior MD [address] [facility] [address] [place] [id number] PCP - General Family Medicine 08/02/22
--- OUTSIDE RECORDS SUMMARY | 2025-02-17 12:06 | XMS_ITS | Clinical Summary ---
Author Organization [employer] ([place], [place], [place], [place]) Address [address] [place] [address] Care Team Providers Care Facial Operator Name Role Phone Narinder Dior MD Primary Care Provider + [phone] Allergies Active Allergy Reactions Criticality Noted Date [...] Active Active Problems No known active problems Family History Medical History Relation Name Comments Drug abuse Brother Karan Depression Daughter Rosie Hyperlipidemia Mother Hali Thyroid disease Mother Hali Rheum arthritis Paternal Grandmother Holly Relation Name Status Comments Brother Karan Daughter Rosie Mother Hali Paternal Grandmother Holly 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 Tobacco Use Types Packs/Day Years [...] Date Tremaine rded Speak language other than [place] at home Not on file 07/19/2023 Want [...] 11/30/2023 2:07 PM EDT Plan of Treatment Health Maintenance Due Date Last Done Comments Depression Screening (12+) 1996 HIV Screening 10/30/1999 Hepatitis C Screening 2002 Lipid Panel 2004 Pap Smear 2005 COVID-19 VACCINE (2 - 2023-2 5 season) 2024 05/10/2021 Breast Cancer Screening 2024 Tobacco Cessation Counseling and Screening (12+) 12/25/2024 12/26/2023 Influenza Vaccine (#1) 2025 DTAP/TDAP/TD VACCINES (2 - T d or Tdap) 03/03/2026 03/03/2016 Pneumococcal Vaccine: 0-49 Years Aged Out No longer eligible based on patient's age to complete this topic Insurance [facility] Care Teams Facial Operator Relationship Specialty Start Date End Date Narinder Dior MD [address] [facility] [address] [place] [phone] PCP - General Family Medicine 08/02/22
--- OUTSIDE RECORDS SUMMARY | 2025-02-17 12:07 | XMS_ITS | Patient Health Record ---
Author Organization [facility] Address [address] [facility] [address] [id number] Care Team Providers Care Hosiery Mater Name Role Phone Sally Cordova Primary Care Provider Marko Quirozine Unavailable [phone] Allergies Allergen (clinical drug ingredient) Drug/Non Drug [...] platlet 291 100 - 400 P-Lyme Disease (Tom. kane solorioi), IgG/IgM, BIN, Serum Reviewed date:12/31/2024 08:23:56 AM Interpretation:Normal Performing Lab: Notes/Report: Test performed by [facility] , [address], [place] [address] Ramirez Thomason MD, Straight Knife Machine Cutter CLIA: [id number] B burgdorferi (Lyme Disease) IgG Negative Negative B burgdorferi (Lyme Disease) IgM Negative Negative P-Comprehensive Metabolic Pa rickie (CMP) Reviewed date:12/31/2024 08:23:56 AM Interpretation:Normal Performing Lab: Notes/Report: Test performed by [facility] [address] [place] [address] , [place] [address] Ramirez Thomason MD, Straight Knife Machine Cutter CLIA: [id number] Sodium 138 135-145 mmol/L Potassium 4.0 3.5-5.3 [...] 0.7 <0.2-1.2 mg/dL A/G Ratio 1.5 1.1-2.5 X-X-Xzekofkp Protein (CRP), High Sensitivity Reviewed date:12/31/2024 08:23:56 AM Interpretation:Normal Performing Lab: Notes/Report: Test performed by [facility] [address] [place] [address] , [address], [place] [address] Ramirez Thomason MD, Straight Knife Machine Cutter CLIA: [id number] C-Reactive Protein (CRP), High Sensitivity 0.70 <3.01 [...] Interpretation:Normal Performing Lab: Notes/Report: Test performed by [facility], [address] , [address], [place] [address] Ramirez Thomason MD, Straight Knife Machine Cutter CLIA: [id number] AND Test performed by [facility] [address] [place] [address] Celia Lemus MD, Straight Knife Machine Cutter B. burgdorferi Antibody IgG Immunoblot Negative Negative [...] developed and its performance characteristics determined by [facility]. It has not been cleared or approved by the [place] Food and Drug Administration. This test was performed in a CLIA certified laboratory and is intended for clinical purposes. Performed By: [facility] [address] [place] [address] Straight Knife Machine Cutter: Ramón Prakash MD, PhD CLIA Number: [id number] A. phagocytophilum Ab IgG <1:80 <1:80 INTERPRETIVE INFORMATION: A. phagocytophilum (HGA) Antibody, IgG Less than 1:80 - No significant level of IgG antibodies to A. phagocytophilum detected. Greater than or equal to 1:80 - Suggestive of a recent or past infection with A. phagocytophilum. This test was developed and its performance characteristics determined by [facility]. It has not been cleared or approved by the US Food and Drug Administration. This test was performed in a CLIA certified laboratory and is intended for clinical purposes. P-Sed Rate (ESR) Reviewed date:12/31/2024 08:23:56 AM Interpretation:Normal Performing Lab: Notes/Report: Test performed by [facility] [address] [place] [address] , [place] [address] Ramirez Thomason MD, Straight Knife Machine Cutter CLIA: [id number] Erythrocyte Sedimentation Rate (ESR), Automated 9 <26 mm/hr P-T4 Free (thyroxine) Reviewed date:12/31/2024 08:23:56 AM Interpretation:Normal Performing Lab: Notes/Report: Test performed by [facility] [address] [place] [address] [place] [address] Ramirez Thomason MD, Straight Knife Machine Cutter CLIA: [id number] Thyroxine Free (free T4) 1.12 0.86-1.76 ng/dL P-TSH Reviewed date:12/31/2024 08:23:56 AM Interpretation:Normal Performing Lab: Notes/Report: Test performed by [facility] [address] [place] [address] [address] [place] [address] Ramirez Thomason MD, Straight Knife Machine Cutter CLIA: [id number] TSH 1.53 0.43-5.25 mU/L P-Vitamin D 25-Hydroxy Reviewed date:12/31/2024 08:23:56 AM Interpretation:25.4 Performing Lab: Notes/Report: Test performed by [facility] [address] [place] [address] [place] [address] Ramirez Thomason MD, Straight Knife Machine Cutter CLIA: [id number] Vitamin D 25-Hydroxy 25.4 30.0-100.0 ng/mL Interpretation of Vitamin D 25 OH: < 20 ng/mL - Deficiency 20 - 29 ng/mL - Insufficiency 30 - 100 ng/mL - Sufficiency > 100 ng/mL - Super-therapeutic- toxicity may occur above this level. Clinical correlation required. Covid test (in house) Reviewed date:12/26/2024 04:42:15 PM Interpretation: Performing Lab: Notes/Report: Result: Neg ultrasound : thyroid Reviewed date:10/10/2024 01:29:24 PM Interpretation: Performing Lab: Notes/Report: TEN-Vaginal Infection panel Reviewed date:10/09/2024 05:13:16 PM Interpretation:Abnormal Performing Lab: Notes/Report: Abnormal P-Vitamin D 25-Hydroxy Reviewed date:10/10/2024 01:29:24 PM Interpretation: Performing Lab: Notes/Report: Test performed by [facility] [address] [place] [address] [place] [address] Ramirez Thomason MD, Straight Knife Machine Cutter CLIA: [id number] Vitamin D 25-Hydroxy 16.0 30.0-100.0 ng/mL Interpretation of Vitamin D 25 OH: < 20 ng/mL - Deficiency 20 - 29 ng/mL - Insufficiency 30 - 100 ng/mL - Sufficiency > 100 ng/mL - Super-therapeutic- toxicity may occur above this level. Clinical correlation required. P-TSH Reviewed date:10/10/2024 01:29:24 PM Interpretation: Performing Lab: Notes/Report: Test performed by [facility] [address] [place] [address] [place] [address] Ramirez Thomason MD, Straight Knife Machine Cutter CLIA: [id number] TSH 1.84 0.43-5.25 mU/L HLA-B27 Antigen Reviewed date:10/10/2024 01:29:24 PM Interpretation: Performing Lab: Notes/Report: HLA-B27 Negative Negative INTERPRETIVE INFORMATION: HLA-B27 HLA-B27 is a serologically defined allele of the human HLA-B locus. The presence of the HLA-B27 antigen is strongly associated with ankylosing spondylitis and related disorders. This test was developed and its performance characteristics determined by [facility]. It has not been cleared or approved by the US Food and Drug Administration. This test was performed in a CLIA certified laboratory and is intended for clinical purposes. Performed By: [facility] [address] [place] [id number] Straight Knife Machine Cutter: Ramón Prakash MD, PhD CLIA Number: [id number] P-T4 Free (thyroxine) Reviewed date:10/10/2024 01:29:24 PM Interpretation: Performing Lab: Notes/Report: Test performed by [facility] , [address], [place] [address] Ramirez Thomason MD, Straight Knife Machine Cutter CLIA: [id number] Thyroxine Free (free T4) 1.00 0.86-1.76 ng/dL P-Rheumatoid Factor Reviewed date:10/10/2024 01:29:24 PM Interpretation: Performing Lab: Notes/Report: [facility] , [facility], [place] [address] Ramirez Thomason MD, Straight Knife Machine Cutter CLIA: [id number] Rheumatoid Factor 10.0 <14.1 IU/mL P-Sed Rate (ESR) Reviewed date:10/10/2024 01:29:24 PM Interpretation: Performing Lab: Notes/Report: Test performed by [facility] , [address], [place] [address] Ramirez Thomason MD, Straight Knife Machine Cutter CLIA: [id number] Erythrocyte Sedimentation Rate (ESR), Automated 31 <26 mm/hr V-Q-Llbnmqpj Protein (CRP) Reviewed date:10/10/2024 01:29:24 PM Interpretation: Performing Lab: Notes/Report: Test performed by [facility] [address] , [address], [place] [address] Ramirez Thomason MD, Straight Knife Machine Cutter CLIA: [id number] C-Reactive Protein (CRP) 0.05 <0.50 mg/dL P-Comprehensive Metabolic Pa rickie (CMP) Reviewed date:10/10/2024 01:29:24 PM Interpretation: Performing Lab: Notes/Report: Test performed by [facility] , [address], [place] [address] Ramirez Thomason MD, Straight Knife Machine Cutter CLIA: [id number] Sodium 140 135-145 mmol/L Potassium 4.3 3.5-5.3 [...] 0.5 <0.2-1.2 mg/dL A/G Ratio 1.6 1.1-2.5 CCP Antibodies Reviewed date:10/10/2024 01:29:24 PM Interpretation: Performing Lab: Notes/Report: Test performed by [facility] [address] [place] [address] , [place] [address] Ramirez Thomason MD, Straight Knife Machine Cutter CLIA: [id number] CCP Antibodies <0.5 <0.5-3.0 U/mL P-CBC with Diff plus Absolut e Counts Reviewed date:10/10/2024 01:29:24 PM Interpretation: Performing Lab: Notes/Report: Test performed by [facility] [address] [place] [address] , [address], [place] [address] Ramirez Thomason MD, Straight Knife Machine Cutter CLIA: [id number] WBC 6.7 3.8-11.5 K/uL Red Blood Cell Count (RBC) 4.56 3.60-5.30 M/mm3 Hemoglobin (Hgb) 13.5 11.5-15.5 gm/dL Hematocrit (HCT) [...] K/uL Absolute Immature Granulocyte 0.02 0.00-0.03 K/uL Antinuclear Antibodies (ROSARIO) Screen Reviewed date:10/10/2024 01:29:24 PM Interpretation: Performing Lab: Notes/Report: Test performed by [facility] [address] [place], [place] [address] [place] , [address], [place] [address] Ramirez Thomason MD, Straight Knife Machine Cutter CLIA: [id number] Antinuclear Antibodies (ROSARIO) Screen Positive Negative This test is perform ed by Multiplex Bead Immunoassay methodology. Urinalysis - Inhouse Reviewed date:10/03/2024 03:15:36 PM Interpretation: Performing Lab: Notes/Report: Color/Clarity yellow/cloudy Leuk Neg Nitrite Neg Urobili 3.2 Protein Neg pH 6.5 Blood Neg Sp. Gr. 1.020 Ketone Neg Bili Neg Gluc Neg Holter - 7 day Reviewed date:12/04/2024 03:41:37 PM Interpretation:PVC's and PAC's Performing Lab: Notes/Report: PVC's and PAC's Urinalysis - Inhouse Reviewed date:10/25/2024 04:50:35 PM Interpretation: Performing Lab: Notes/Report: Color/Clarity yellow/clear Leuk Neg Nitrite Neg Urobili 3.2 Protein Neg pH 5.0 Blood Neg Sp. Gr. 1.020 Ketone Neg Bili Neg Gluc Neg U-O-Vztdztqi Protein (CRP), High Sensitivity Reviewed date:11/01/2024 11:56:22 AM Interpretation:Normal Performing Lab: Notes/Report: Test performed by [facility] [address] [place] [address] , [address], [place] [address] Ramirez Thomason MD, Straight Knife Machine Cutter CLIA: [id number] C-Reactive Protein (CRP), High Sensitivity 0.30 <3.01 [...] Interpretation:Normal Performing Lab: Notes/Report: Test performed by [facility] [address] [place], [place] [address] [place] , [place] [address] Ramirez Thomason MD, Straight Knife Machine Cutter CLIA: [id number] Erythrocyte Sedimentation Rate (ESR), Automated 5 <26 mm/hr P-T4 Free (thyroxine) Reviewed date:11/01/2024 11:56:22 AM Interpretation:Normal Performing Lab: Notes/Report: Test performed by [facility] [address] [place] [address] , [place] [address] Ramirez Thomason MD, Straight Knife Machine Cutter CLIA: [id number] Thyroxine Free (free T4) 1.09 0.86-1.76 ng/dL P-Thyroid Antibody Panel (TA BS) Reviewed date:11/01/2024 11:56:22 AM Interpretation:Thyroglobulin antibody 234.0 Performing Lab: Notes/Report: Test performed by [facility] [address] [place], [place] [address] [place] , [place] [address] Ramirez Thomason MD, Straight Knife Machine Cutter CLIA: [id number] Thyroid Peroxidase Antibody 13 <9-34 IU/mL An [...] Interpretation:Normal Performing Lab: Notes/Report: Test performed by [facility] [address] , [address], [place] [address] Ramirez Thomason MD, Straight Knife Machine Cutter CLIA: [id number] TSH 1.94 0.43-5.25 mU/L TEN-Vaginal Infection panel Reviewed date:11/01/2024 11:56:22 AM Interpretation:Abnormal Performing Lab: Notes/Report: Abnormal X ray : KUB Reviewed date:11/01/2024 01:33:36 PM Interpretation:No Significant Constipation Performing Lab: Notes/Report: No Significant Constipation P-Basic Metabolic Panel (BMP ) Reviewed date:05/10/2024 08:42:35 AM Interpretation: Performing Lab: Notes/Report: Test performed by [facility] [address] [place] [address] , [place] [address] Ramirez Thomason MD, Straight Knife Machine Cutter CLIA: [id number] Sodium 140 135-145 mmol/L Potassium 3.9 3.5-5.3 mmol/L Chloride 105 97-108 mmol/L CO2 21 22-32 mmol/L Glucose 92 65-99 mg/dL BUN 13 6-20 mg/dL Creatinine 0.85 0.50-1.00 mg/dL Calcium 9.5 8.6-10.4 mg/dL eGFR by Creatinine 89 >59 mL/min/1.73m2 P-T4 Free (thyroxine) Reviewed date:05/10/2024 08:42:35 AM Interpretation: Performing Lab: Notes/Report: Test performed by [facility] [address] [place] [address] , [place] [address] Ramirez Thomason MD, Straight Knife Machine Cutter CLIA: [id number] Thyroxine Free (free T4) 1.09 0.86-1.76 ng/dL P-Thyroid Antibody Panel (TA BS) Reviewed date:05/10/2024 08:42:35 AM Interpretation: Performing Lab: Notes/Report: Test performed by [facility] [address] [place] [address] [address], [place] [address] Ramirez Thomason MD, Straight Knife Machine Cutter CLIA: [id number] Thyroid Peroxidase Antibody 17 <9-34 IU/mL An elevated Thyroid Peroxidase Antibody should not be used alone to make the diagnosis of autoimmune thyroid disease. A result of <34 IU/mL does not definitively rule out the possibility of autoimmune thyroid disease. Thyroglobulin Antibody 250.0 <10-115.0 IU/mL The test is performed by the Rajni ECLIA methodology. Values obtained with different assay methods or kits cannot be directly compared. P-TSH Reviewed date:05/10/2024 08:42:35 AM Interpretation: Performing Lab: Notes/Report: Test performed by [facility] [address] [place] [address] , [address], [place] [address] Ramirez Thomason MD, Straight Knife Machine Cutter CLIA: [id number] TSH 2.34 0.43-5.25 mU/L ultrasound : thyroid Reviewed date:05/16/2024 10:25:23 AM Interpretation:right thyroid nodule, consider f/u in 6-12 months Performing Lab: Notes/Report: right thyroid nodule, consider f/u in 6-12 months Urinalysis - Inhouse Reviewed date:07/05/2024 01:29:14 PM Interpretation: Performing Lab: Notes/Report: Color/Clarity dark yellow/clear Leuk Neg Nitrite Neg Urobili 33 Protein Neg pH 6.5 Blood Neg Sp. Gr. 1.025 Ketone Trace Bili 1+ Gluc Neg TEN-Vaginal Infection panel Reviewed date:07/10/2024 09:09:30 AM Interpretation:Abnormal Performing Lab: Notes/Report: Abnormal Ultrasound : Breast, right Reviewed date:10/17/2024 10:13:46 AM Interpretation: Performing Lab: Notes/Report: Mammogram Reviewed date:10/17/2024 10:13:01 AM Interpretation: Performing Lab: Notes/Report: Mammogram Reviewed date:10/17/2024 10:13:01 AM Interpretation: Performing Lab: Notes/Report: CBC Fingerstick (in house) ( Not yet reviewed by provider) Interpretation: Performing Lab: Notes/Report: wbc 4.4 3.5 - 10 lym 29.4 15 - 50 mid 7.2 2 - 15 gran 63.4 35 - 80 rbc 4.97 3.5 - 5.5 hgb 14.3 11.5 - 16.5 hct 43.1 35 - 55 mcv 86.7 75 - 100 mch 28.7 25 - 35 mchc 33.1 31 - 38 plat 236 100 - 400 Urinalysis - Inhouse (Not ye t reviewed by provider) Interpretation: Performing Lab: Notes/Report: Color/Clarity dark yellow/clear Leuk neg Nitrite neg Urobili 16 Protein trace pH 7.0 Blood neg Sp. Gr. 1.020 Ketone trace Bili neg Gluc neg Antinuclear Antibodies (ROSARIO) Screen Reviewed date:03/25/2024 12:43:59 PM Interpretation:Positive Performing Lab: Notes/Report: Test performed by [facility] [address] [place] [address] , [address], [place] [address] Ramirez Thomason MD, Straight Knife Machine Cutter CLIA: [id number] Antinuclear Antibodies (ROSARIO) Screen Positive Negative Test performed by Multiplex Bead Immunoassay methodology. P-CBC with Diff plus Absolut e Counts Reviewed date:03/25/2024 12:43:59 PM Interpretation:Normal Performing Lab: Notes/Report: Test performed by [facility] [address] [place] [address] , [address], [place] [id number] Ramirez Thomason MD, Straight Knife Machine Cutter CLIA: [id number] WBC 4.1 3.8-11.5 K/uL Red Blood Cell Count (RBC) 4.56 3.60-5.30 M/mm3 Hemoglobin (Hgb) 13.2 11.5-15.5 gm/dL Hematocrit (HCT) 39.9 35.2-46.4 % MCV 87.5 79.0-99.0 fL MCH 28.9 26.9-35.0 pg MCHC 33.1 30.4-34.8 g/dL RDW 40.2 38.6-53.8 fL Platelet Count 300 137-397 K/cumm Neutrophils Automated 59.4 41.0-77.0 % Lymphocytes Automated 28.8 14.0-48.0 % Monocytes Automated 9.0 4.0-13.0 % Eosinophils Automated 1.9 0.0-8.0 % Basophils Automated 0.7 0.0-1.5 % Immature Granulocyte Automated 0.2 0.0-1.0 % Absolute Neutrophil Count 2.5 2.0-8.2 K/uL Absolute Lymphocyte Count 1.2 0.9-3.6 K/uL Absolute Monocyte Count 0.4 0.3-1.0 K/uL Absolute Eosinophil Count 0.1 0.0-0.6 K/uL Absolute Basophil Count 0.0 0.0-0.1 K/uL Absolute Immature Granulocyte 0.01 0.00-0.03 K/uL P-Comprehensive Metabolic Pa rickie (CMP) Reviewed date:03/25/2024 12:43:59 PM Interpretation:gluc 64 Performing Lab: Notes/Report: Test performed by [facility] [address] [place] [address] , [address], [place] [address] Ramirez Thomason MD, Straight Knife Machine Cutter CLIA: [id number] Sodium 140 135-145 mmol/L Potassium 3.8 3.5-5.3 mmol/L Chloride 105 97-108 mmol/L CO2 26 22-32 mmol/L Glucose 64 65-99 mg/dL BUN 9 6-20 mg/dL Creatinine 0.87 0.50-1.00 mg/dL Calcium 9.3 8.6-10.4 mg/dL eGFR by Creatinine 87 >59 mL/min/1.73m2 Protein 7.1 6.0-8.3 g/dL Albumin 4.3 3.5-5.3 g/dL Alkaline Phosphatase 59 35-121 IU/L ALT (SGPT) 17 <5-47 IU/L AST (SGOT) 17 <5-40 IU/L Bilirubin, Total 0.9 <0.2-1.2 mg/dL A/G Ratio 1.5 1.1-2.5 N-Y-Izghvmro Protein (CRP) Reviewed date:03/25/2024 12:43:59 PM Interpretation:Normal Performing Lab: Notes/Report: Test performed by [facility] [address] [place] [address] , [address], [place] [address] Ramirez Thomason MD, Straight Knife Machine Cutter CLIA: [id number] C-Reactive Protein (CRP) 0.06 <0.50 mg/dL P-Sed Rate (ESR) Reviewed date:03/25/2024 12:43:59 PM Interpretation:Normal Performing Lab: Notes/Report: Test performed by [facility] [address] [place] [address] , [address], [place] [address] Ramirez Thomason MD, Straight Knife Machine Cutter CLIA: [id number] Erythrocyte Sedimentation Rate (ESR), Automated 3 <26 mm/hr T-Apopcrpekde-ET Gold Plus Reviewed date:03/25/2024 12:43:59 PM Interpretation:test cancelled Performing Lab: Notes/Report: Test Cancelled Test Cancelled Unable to p erform testing due to insufficient quantity of specimen. Unable to perform testing due to insufficient quantity of specimen P-Vitamin D 25-Hydroxy Reviewed date:03/25/2024 12:43:59 PM Interpretation:26.5 Performing Lab: Notes/Report: Test performed by [facility] [address] [place] [address] , [address], [place] [address] Ramirez Thomason MD, Straight Knife Machine Cutter CLIA: [id number] Vitamin D 25-Hydroxy 26.5 30.0-100.0 ng/mL Interpretation of Vitamin D 25 [place]: < 20 ng/mL - Deficiency 20 - 29 ng/mL - Insufficiency 30 - 100 ng/mL - Sufficiency > 100 ng/mL - Super-therapeutic- toxicity may occur above this level. Clinical correlation required. CBC Fingerstick (in house) Reviewed date:03/26/2024 01:29:51 PM Interpretation: Performing Lab: Notes/Report: wbc 9.1 3.5 - 10 lym 22.6 15 - 50 mid 6.5 2 - 15 gran 70.9 35 - 80 rbc 5.04 3.5 - 5.5 hgb 14.6 11.5 - 16.5 hct 44.3 35 - 55 mcv 87.8 75 - 100 mch 29.0 25 - 35 mchc 33.1 31 - 38 plat 159 100 - 400 TEN-stool panel Reviewed date:03/29/2024 08:47:19 AM Interpretation:clostridium Performing Lab: Notes/Report: clostridium Reason For Referral Diagnosis 1 Rheumatoid arthritis involving multiple sites, unspecified whether rheumatoid factor present (M06.9) Referral Organization [facility] Referring Provider First Name Sally Referring Provider Last Name Tasha Referring Provider Speciality Physician Chorus Dancer Referred Provider Rheumatology, . Referred Provider Specialty Rheumatology General Notes Sally Cordova 05/09 2:03:24 PM > Would like to go to [facility] [place], Radha Valerio 05/13/2024 11:59:53 AM > faxed to [facility] Scheduling Referral Priority Routine Reason patient needs to see endocrinology Diagnosis 1 Thyroid nodule (E04. 1) [facility]erring [facility] First Name Sally Referring Provider Last Name Tasha Referring Provider Speciality Physician Chorus Dancer Referred Provider Specialty Endocrinolog y General Notes Radha Valerio 1:18:17 PM > faxed to [facility] EndocrinologyIman Brynn 05/20/2024 1:25:55 PM > appt 05/22/2024 at 10:00am Referral Priority Routine Diagnosis 1 Constipation, unspec ified constipation type (K59.00) [facility] Referring Provider First Name Sally Referring Provider Last Name Tasha Referring Provider Speciality Physician Chorus Dancer Referred Provider BRIDGETTE CASILLAS Referred Provider Specialty Gastroentero logy General Notes Radha Valerio 8:38:27 AM > faxed to [facility] GastroenterologyIman Brynn 06/17/2024 9:54:40 AM > spoke with Rudy; resent faIman simpson Brynn 06/19/2024 11:09:11 AM > confirmed order received with Rudy Referral Priority Routine Reason Thyroid enlargement Diagnosis 1 Thyromegaly (E04.9) Diagnosis 2 Enlarged thyroid (E0 4.9) Diagnosis 3 Thyroid nodule (E04. 1) [facility] Referring Provider First Name Sally Referring Provider Last Name Tasha Referring Provider Speciality Physician Chorus Dancer Referred Organization [facility] Referred Address [address] [place] [address], [address],[place], [id number], Referred Provider Specialty ENT General Notes Radha Valerio 2024 01:17:24 PM > faxed to [facility] ENTIman Brynn 10/11/2024 08:51:34 AM > 10/15/2024 Referral Priority Routine Medications Medication SIG (Take, Route, Frequency, Duration) Notes Start Date End Date Status DULoxetine HCl 60 mg TAKE ONE CAPSULE BY MOUTH EVERY DAY; Duration: 30 days Active Omeprazole 40 MG 1 capsule 30 minutes before morning meal Orally Once a day; Duration: 90 days Active Vitamin D (Ergocalciferol) 1.25 MG (11715 UT) 1 capsule Orally once a week; Duration: 30 days Active Meclizine HCl 25 mg TAKE ONE TABLET BY M OUTH THREE TIMES DAILY NEEDED; Duration: 7 Active Trulance 3 MG 1 tablet Orally Once a day; Duration: 90 days 12/28/2023 Active tiZANidine HCl 2 MG 1 tablet as needed O rally Three times a day; Duration: 30 day(s) 01/12/2023 Active Bisoprolol Fumarate 5 MG 1 tablet Orally Once a day; Duration: 90 days 06/21/2024 Active Montelukast Sodium 10 mg 1 tablet [...] EVERY 2 WEEKS; Duration: 28 Acti ve Immunizations Vaccine Route Administration Date Status Comme nts COVID 19 Moderna Unknown 05/10/2021 Administered xFluzone (6mos and older)-trivalent Unknown 04/14/2010 Administered xFluzone (6mos and older)-trivalent Unknown 06/16/2014 Administered Problems Problem Type SNOMED Code ICD Code Onset Dates Problem Status W/U Status Risk Notes Problem Gastroesophageal reflux disease (532517260) GERD (gastroesophage al reflux disease) (K21.9) Active confirmed Problem Vitamin D deficiency (79918361) Vitamin D deficiency (E55.9) Active confirmed Problem Hypertension (42470441) Hypertension (I10) Active confirmed Problem Goiter (7329255) Enlarged thyroid (E04.9) Active confirmed Problem Mixed anxiety and depressive disorder (070706765) Depression with anxiety (F41.8) Active confirmed Problem Acute constipation (772775148) Acute constipation (K59.00) Active confirmed Problem Thyromegaly (8031971) Thyromegaly (E04.9) Active confirmed Problem Right bundle branch block (21870061) Right bundle branch block (I45.10) Active confirmed Problem Obesity (481049248) Obesity (BMI 30-39.9) (E66.9) Active confirmed Problem Thyroid nodule (621971565) Thyroid nodule (E04.1) Active confirmed Problem Constipation (58609927) Constipation, unspecified constipation type (K59.00) Active confirmed Problem Migraine (15961358) Migraine without status migrainosus, not intractable, unspecified migraine type (G43.909) Active confirmed Problem 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 Problem Fibrocystic breast changes (07852887) Fibrocystic changes of right breast (N60.11) Active confirmed Problem Obesity (201791217) Non morbid obesity (E66.9) Active confirmed Problem Hematuria syndrome (70754643) Hematuria, unspecified type (R31.9) Active confirmed Problem Seasonal allergic rhinitis (666630052) Seasonal allergic rhinitis, unspecified trigger (J30.2) Active confirmed Problem Rheumatoid arthritis (48176217) Rheumatoid arthritis involving multiple sites, unspecified whether rheumatoid factor present (M06.9) Active confirmed Vital Signs Heart Rate 104 /min 02/17/2025 Blood pressure diastolic 76 mm Hg 02/17/2025 Height 67 in 02/17/2025 Blood pressure systolic 130 mm Hg 02/17/2025 Weight 179 lbs 02/17/2025 BMI 28.03 kg/m2 02/17/2025 Encounters Encounter [facility] Date Provider [facility] [address] [place] [id number] 03/21/2024 Sally Crowjazmyn Hypertension I10 ; Rheumatoid arthritis involving multiple sites, unspecified whether rheumatoid factor present M06.9 ; Vitamin D deficiency E55.9 and Tuberculosis screening Z11.1 [facility] 1210 [facility] [address] [place] [id number] 03/26/2024 Maggy Quiroz Abdominal pain R10.9 and Diarrhea R19.7 [facility] 1210 [facility] [address] [place], [place] [id number] 05/09/2024 Sally Tasha Thyroid nodule E04.1 and Rheumatoid arthritis involving multiple sites, unspecified whether rheumatoid factor present M06.9 [facility] [address] [place], [place] [id number] 07/05/2024 Sally Tasha Acute vaginitis N76. 0 [facility] 1210 [facility] [address] [place] [id number] 08/20/2024 Maggy Quiroz Breast pain, right N64.4 and Fibrocystic changes of right breast N60.11 [facility] [address] [facility] [address] [place], [place] [id number] 10/03/2024 Sally Crowdy Palpitations R00.2 ; Acute vaginitis N76.0 ; Thyroid nodule E04.1 ; Vitamin D deficiency E55.9 and Rheumatoid arthritis involving multiple sites, unspecified whether rheumatoid factor present M06.9 [facility] [address] [place], [place] [id number] 10/25/2024 Sally Crowdy Thyroid nodule E04.1 ; Acute vaginitis N76.0 ; Rheumatoid arthritis involving multiple sites, unspecified whether rheumatoid factor present M06.9 and BMI 29.0-29.9,adult Z68.29 [facility] [address] [place], [place] [id number] 12/26/2024 Sally Crowdy Rheumatoid arthritis involving multiple sites, unspecified whether rheumatoid factor present M06.9 ; Thyroid nodule E04.1 ; Fatigue, unspecified type R53.83 ; Palpitations R00.2 ; Vitamin D deficiency E55.9 and Body aches R52 [facility] [address] [facility] [address] [place] [id number] 02/17/2025 Maggy Quiroz Abdominal pain R10.9 and Acute constipation K59.00 [facility] [address] [facility] [address] [place] [id number] 02/26/2024 Sally Crowdy [facility] [address] [facility] [address] [place] [id number] 03/11/2024 Sally Crowdy [facility] [address] [facility] [address] [place] [id number] 03/29/2024 Maggy Quiroz Diarrhea R19.7 [facility] [address] [facility] [address] [place], [place] [id number] 04/01/2024 Maggy Quiroz Diarrhea R19.7 [facility] [address] [facility] [address] [place] [id number] 04/01/2024 Sally Crowdy [facility] [address] [place], [place] [id number] 04/15/2024 Maggy Quiroz [facility] [address] [place], [place] [id number] 05/15/2024 Sally Crowdy [facility] [address] [place] [id number] 05/31/2024 Sally Crowdy [facility] [address] [place], [place] [id number] 06/12/2024 Sally Crowdy Constipation, unspecified constipation type K59.00 [facility] [address] [place] [id number] 06/21/2024 Sally Crowdy [facility] [address] [place] [id number] 07/10/2024 Sally Crowdy [facility] [address] [place] [id number] 07/29/2024 Sally Crowdy [facility] [address] [place] [id number] 08/02/2024 Sally Crowdy [facility] [address] [place] [id number] 08/20/2024 Sally Crowdy [facility] [address] [place] [id number] 08/29/2024 Sally Crowdy [facility] [address] [place] [id number] 09/11/2024 Sally Crowdy [facility] [address] [place] [id number] 09/28/2024 Sally Crowdy [facility] [address] [place], [place] [id number] 10/04/2024 Sally Crowdy [facility] [address] [place] [id number] 10/09/2024 Sally Crowdy [facility] [address] [place] [id number] 10/10/2024 Sally Crowdy [facility] [address] [place], [place] [id number] 10/24/2024 Sally Crowdy [facility] [address] [place] [id number] 10/30/2024 Sally Crowdy Constipation, unspecified constipation type K59.00 [facility] [address] [place], [place] [id number] 11/01/2024 Sally Crowdy [facility] [address] [place] [id number] 12/16/2024 Sally Crowdy [facility] [address] [place] [id number] 01/15/2025 Sally Crowdy [facility] [address] [place] [id number] 02/07/2025 Sally Crowdy Assessments Encounter Date Diagnosis (ICD Code) Assessment Notes Treatment Notes Treatment Clinical Notes Section Notes 03/21/2024 Hypertension (ICD-10 - I10) 03/26/2024 Abdominal pain (ICD-10 - R10.9) 03/26/2024 Diarrhea (ICD-10 - R19.7) bland foods in small amounts with good fluid intake--small amounts frequently; no soda or caffeine 03/29/2024 Diarrhea (ICD-10 - R19.7) 04/01/2024 Diarrhea (ICD-10 - R19.7) 05/09/2024 Thyroid nodule (ICD-10 - E04.1) 05/09/2024 Rheumatoid arthritis involving multiple sites, unspecified whether rheumatoid factor present (ICD-10 - M06.9) 06/12/2024 Constipation, unspecified constipation type (ICD-10 - K59.00) 07/05/2024 Acute vaginitis (ICD-10 - N76.0) 08/20/2024 Fibrocystic changes of right breast (ICD-10 - N60.11) 08/20/2024 Breast pain, right (ICD-10 - N64.4) NSAIDS prn 10/03/2024 Palpitations (ICD-10 - R00.2) 10/03/2024 Acute vaginitis (ICD-10 - N76.0) 10/30/2024 Constipation, unspecified constipation type (ICD-10 - K59.00) 10/25/2024 Acute vaginitis (ICD-10 - N76.0) 10/25/2024 Thyroid nodule (ICD-10 - E04.1) 12/26/2024 Thyroid nodule (ICD-10 - E04.1) 12/26/2024 Rheumatoid arthritis involving multiple sites, unspecified whether rheumatoid factor present (ICD-10 - M06.9) 02/17/2025 Abdominal pain (ICD-10 - R10.9) 02/17/2025 Acute constipation (ICD-10 - K59.00) 10/25/2024 Rheumatoid arthritis involving multiple sites, unspecified whether rheumatoid factor present (ICD-10 - M06.9) 12/26/2024 Fatigue, unspecified type (ICD-10 - R53.83) 10/03/2024 Thyroid nodule (ICD-10 - E04.1) 10/03/2024 Vitamin D deficiency (ICD-10 - E55.9) 03/21/2024 Rheumatoid arthritis involving multiple sites, unspecified whether rheumatoid factor present (ICD-10 - M06.9) 12/26/2024 Palpitations (ICD-10 - R00.2) 10/25/2024 BMI 29.0-29.9,adult (ICD-10 - Z68.29) 12/26/2024 Vitamin D deficiency (ICD-10 - E55.9) 10/03/2024 Rheumatoid arthritis involving multiple sites, unspecified whether rheumatoid factor present (ICD-10 - M06.9) 03/21/2024 Vitamin D deficiency (ICD-10 - E55.9) 03/21/2024 Tuberculosis screening (ICD-10 - Z11.1) 12/26/2024 Body aches (ICD-10 - R52) Plan Of Treatment Pending Test Test Name Order Date Urinalysis - Inhouse 02/17/2025 CBC Fingerstick (in house) 02/17/2025 X ray : Abdomen Series 02/17/2025 P-ROSARIO 03/21/2024 P-ROSARIO 10/03/2024 P-Influenza A/B, Covid 19, RSV 01/10/202 3 Next Appt Details Provider Name:Maggy gallegos, 02/17/2025 11:15:00 AM, [address], [place], [id number], Insurance Providers Payer Name Payer Address Payer Phone Subscriber Number Group Number Insured Name Patient Relationship to Insured Coverage Start Date Coverage End Date [employer]NA [facility] [address] [place], [place] [id number] TAMMY RAUSCH Self - patient is the insured Medications Administered Medication Instructions Date of Administration Dosage Notes Dexamethasone 07/16/2021 1 mL ondansetron 01/13/2023 2 mL Medical (General) History Medical History History ICD Code Hypertension Hyperlipidemia Allergic Rhinitis Depression Endometriosis Migraines RA Factor Positive 2017 Rheumatoid Arthritis Anxiety Surgical History Surgery Date(Month/Year) Cholecystectomy 2004 D & C 2003,2004 [facility] Clips Tubal Ligation 05/21/2012 Endometrial Ablation 12/2012 Colonoscopy 2014 Hysterectomy- Dr. Perea, [facility] 11/30/2014 Laperoscopy 11/19/2019 Colonoscopy, 1 Polyp Removed, Repeat 3 Y ears 02/22/2023 Thyroid Nodule Biopsy 10/22/2024 Hospitalization History Reason Date(Month/[facility]) [facility] Abdominal Pain, [facility]omiting- [facility] 12/29-07/2022 Abdominal Pain, Vomiting- [facility] 023 Abdominal Pain, Vomiting- [facility] 023 Elevated BP- [facility] 07/15/2021 Aura Migraine- [facility] 03/13/2020 Abdominal Pain, Constipation- [facility] 12/17- Migraine- [facility] ER 06/20/2018 Migraine, Lumbar Puncture- [facility] 04/04-2017
--- OUTSIDE RECORDS SUMMARY | 2025-02-17 12:07 | XMS_ITS | Clinical Summary ---
Author Organization Healthcare Address [address] [place] [address] Care Team Providers Care Director Of Rotc Name Role Phone Pcp, No Primary Care Provider Unavailabl e Allergies Active Allergy Reactions Criticality Noted Date Comments Cefaclor Anaphylaxis,Unknown - Patient states they do not know rxn details High 08/27/2015 Indomethacin Dizziness,Headache,P alpitations,Shortnes s of breath,Unknown - Patient states they do not know rxn details High 08/22/2018 Metoclopramide Hallucinations,Unkno wn - Patient states they do not know rxn details Medium 11/23/2015 Other Other - please document in the comment field Low 02/26/2016 Ceclor, Reglan Sulfamethoxazole-Trimetho prim Hives,Unknown - Patient states they do not know rxn details Medium 08/27/2015 Bactrim Medications No known medications Active Problems Problem Noted Date Diagnosed Date Pelvic and perineal pain 10/14/2021 Assessment & Plan (10/14/2021 12:32 PM EDT): - s/p hysterectomy. Per op note in [facility], she has both ovaries. Op report did not mention concern of denses adhesions of endometriosis. - normal ultrasound of ovaries today. - discussed pelvic floor physical therapy - she declines at this time - RTC as needed Acute vaginitis 10/14/2021 Assessment & Plan (10/14/2021 12:32 PM EDT): - flagyl Rx sent for BV Ankylosing spondylitis 09/16/2021 Migraines 09/16/2021 Decreased libido 09/23/2020 Hot flashes 09/23/2020 Immunizations Immunization Administration Dates Next Due Hep B, adult 02/26/2016 Influenza, Unspecified 03/23/2016 Tdap 03/03/2016 Varicella 04/01/2016,03/03/2016 Family History Medical History Relation Name Comments Conversions - Other Mother History of hysterectomy Breast cancer Other 1 Uterine cancer Other 2 Relation Name Status Comments Mother Other 1 Other 2 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 Tobacco Use Types Packs/Day Years Used Date Smoking Tobacco: Every Day Smokeless Tobacco: Never Alcohol Use Standard Drinks/Week Comments Never 0 (1 standard drink = 0.6 oz pur e alcohol) Comments No Sex and Gender Information Value Date Recorded Sex Assigned at Female 09/13/2021 3:14 PM EDT Legal Sex Female 5:55 PM EDT Gender Identity Female 09/13/2021 3:14 PM EDT Sexual Orientation Straight 09/13/2021 3: 14 PM EDT Last Filed Vital Signs Vital Sign Reading Time Taken Comments Blood Pressure 128/86 10/14/2021 11:50 AM EDT Pulse 105 09/16/2021 11:22 AM EDT Temperature - - Respiratory Rate - - Oxygen Saturation - - Inhaled Oxygen Concentration - - Weight 105 kg (231 lb 11.2 oz) 10/14/2021 11:50 AM EDT Height 167.6 cm (5' 6 ) 10/14/2021 11:50 AM EDT Body Mass Index 37.4 10/14/2021 11:50 AM EDT Plan of Treatment Health Maintenance Due Date Last Done Comments [facility]-Depression Screening 1985 [facility]-/Child/Adol SDOH Screenings 1985 [facility]- SDOH Screenings 2002 [facility]-Adult SDOH Screenings 2002 [facility]-Pap Smear 2005 HPV Vaccines (1 - 3-dose SCDM series) 10/30/2011 [facility]-Cervical Cancer Screening 2014 [facility]-HPV/Cotest 2014 [facility]-Hepatitis B Vaccines (2 of 3 - 19+ 3-dose series) 03/25/2016 02/26/2016 [id number] Vaccine (2 - season) 2024 05/10/2021 [facility]-Influenza Vaccine (#1) 03/03/202503/23, 06/16/2014, 04/14/2010 [facility]-DTaP,Tdap,and Td Vaccines (2 - Td or Tdap) 03/03/2026 03/03/2016 [facility]-Zoster Vaccines (1 of 2) 2034, 03/03/2016 [facility]-Varicella Vaccines Completed 6, 03/03/2016 [facility]-HIB Vaccines Aged Out No longer e ligible based on patient's age to complete this topic [facility]-Hepatitis A Vaccines Aged Out No longer eligible based on patient's age to complete this topic [facility]-IPV Vaccines Aged Out No longer e ligible based on patient's age to complete this topic [facility]-Pneumococcal Vaccine: Pediatrics (0 to 5 Years) and At-Risk Patients (6 to 49 Years) Aged Out No longer eligible b ased on patient's age to complete this topic [facility]-Rotavirus Vaccines Aged Out No lo nger eligible based on patient's age to complete this topic Insurance [employer] Care Teams Director Of Rotc Relationship Specialty Start [place] [address] PCP - General Family Medicine 10/14/21
== END 2025-02-17 23:59 | disposition home or self-care (01) ==
LOC: RAD 12:04
PROVIDERS: PCP Nurse Practitioner Family; Visit Provider Nurse Practitioner Family
DX: K59.00 Constipation, unspecified (principal)
CPT/HCPCS: 74021

== ENCOUNTER 2025-03-25 13:34 | Outpatient (CLI) | payer OTHER, SELFPAY ==
--- OUTSIDE RECORDS SUMMARY | 2024-05-22 11:42 | XMS_ITS | Encounter Summary ---
Author Organization [facility] Address [address] [place] [address] Care Team Providers Care Concrete Fence Builder Name Role Phone Sally Cordova Primary Care Provider [phone] Reason for Visit * Diagnostic Imaging (Routine) - Closed Specialty Diagnoses / Procedures Referred By Franchesca craig Referred To Contact Radiology Diagnoses Abnormal thyroid ultrasound Thyroid antibody positive Procedures US Thyroid Gosia Carpio MD [address] [place] [phone] Phone: tel: fax: Referral ID Status Reason Start Date Expiration Date Visits Re quested Visits Authorized [id number] Closed 05/22/2024 05/22/2025 1 1 Encounter Details Date Type Department Care Team (Late st Contact Info) Description 05/22/2024 10:42 AM EST Hospital Encounter [facility] ENDOCRINOLOGY [address] [place] [address] [phone] 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 Tobacco Use Types Packs/Day Years [...] physician's note for result. Gosia Carpio MD [facility] US ORDERABLES Final Result documented in this encounter Visit Diagnoses Not on filedocumented in this encounter Care Teams Concrete Fence Builder Relationship Specialty Start Date End Date Sally Cordova PA [address] [place] [facility] [address] [facility] [address] [place] [address] PCP - General Physician Real Estate Assessor 10/17/23 documented as of this encounter
--- OUTSIDE RECORDS SUMMARY | 2024-10-25 07:30 | XMS_ITS ---
Author Organization [facility] Address [address] [facility] 36 [facility] [address] [place] [phone] Care Team Providers Care Physical Aerodynamicist Name Role Phone Sally Cordova Primary Care [...] 1.020 Ketone Neg Bili Neg Gluc Neg R-P-Kyuifoqe Protein (CRP), High Sensitivity Reviewed date:11/01/2024 11:56:22 AM Interpretation:Normal Performing Lab: Notes/Report: Test performed by [facility] [address] [place] [address] , [address], [place] [address] Ramirez Thomason MD, Double Surface Operator CLIA: [id number] C-Reactive Protein (CRP), High Sensitivity 0.30 <3.01 [...] Interpretation:Normal Performing Lab: Notes/Report: Test performed by [facility] [address] , [place] [address] Ramirez Thomason MD, Double Surface Operator CLIA: [id number] Erythrocyte Sedimentation Rate (ESR), Automated 5 <26 mm/hr P-T4 Free (thyroxine) Reviewed date:11/01/2024 11:56:22 AM Interpretation:Normal Performing Lab: Notes/Report: Test performed by [facility] [address] , [place] [address] Ramirez Thomason MD, Double Surface Operator CLIA: [id number] Thyroxine Free (free T4) 1.09 0.86-1.76 ng/dL P-Thyroid Antibody Panel (TA BS) Reviewed date:11/01/2024 11:56:22 AM Interpretation:Thyroglobulin antibody 234.0 Performing Lab: Notes/Report: Test performed by [facility] [address] , [place] [address] Ramirez Thomason MD, Double Surface Operator CLIA: [id number] Thyroid Peroxidase Antibody 13 <9-34 IU/mL An [...] Interpretation:Normal Performing Lab: Notes/Report: Test performed by [facility] [address] , [place] [address] Ramirez Thomason MD, Double Surface Operator CLIA: [id number] TSH 1.94 0.43-5.25 mU/L TEN-Vaginal Infection panel Reviewed date:11/01/2024 11:56:22 AM Interpretation:Abnormal Performing Lab: Notes/Report: Abnormal REASON FOR VISIT Personal Medications Medication SIG (Take, Route, Frequency, Duration) Notes Start Date End Date Status Omeprazole 40 MG 1 capsule 30 minutes before morning meal Orally Once a day; Duration: 90 days Active Vitamin D (Ergocalciferol) 1.25 MG (53058 UT) 1 capsule Orally once a week; [...] 10/25/2024 Encounters Encounter Location Date Provider Diagnosis [facility] [address] [facility] [address] [place], [place] [phone] 10/25/2024 Sally Tasha Thyroid nodule E04.1 ; [...] phone to repo rt test results, Reason: Progress Notes * CHIKA MURODOB:1985 (3 0 yo F)Acc No.[id number]:10/25/2024 Progress Notes Patient: CHIKA KRISHNAMURTHY Provider: [place] Sanchez :1985 A ge:38 Y S ex:Female Date:10/25/2024 Address:[address] [place] [address] Subjective: * Chief Complaints: * 1 . [...] Ablation 12/2012, Colonoscopy 2014, Hysterectomy- Dr. Perea, [facility] 11/30/2014, Laperoscopy 11/19/2019, Colonoscopy, 1 Polyp Removed, Repeat 3 Years 02/22/2023, Thyroid Nodule Biopsy 10/22/2024. * Hospitalization/Major Diagno stic Procedure: M igraine, Lumbar Puncture- [facility] 04/04-10/2017, Migraine- [facility] ER 06/20/2018, Abdominal Pain, Constipation- [facility] 12/17-, Aura Migraine- [facility] ER 03/13/2020, Elevated BP- [facility] 07/15/2021, Abdominal Pain, Vomiting- [facility] 12/26/2022, Abdominal Pain, Vomiting- [facility] 12/28/2022, Abdominal Pain, Vomiting- [facility] 12/29-12/31/2022, Abdominal Pain, Vomiting- [facility], [place] 02/05-05/2023. * Family History: F ather: alive [...] with Hypertension, Heart Disease, Stroke, Cancer. S ibjaquan: alive. C chandni: alive. 2 brother(s) , 1 sister(s) - [...] , Taking Vitamin D (Ergocalciferol) 1.25 MG (25661 UT) Capsule 1 capsule Orally once a [...] factor present - M06.9 4 . B IN 29.0-29.9,adult - Z68.29 Plan: * Treatment: Value Reference Range T hyroxine Free (free T4) 1.09 0.86-1.76 - ng/d L Cortney Robert 11/01/2024 11:5 5:54 AM > See phone [...] multiple sites, unspecified whether rheumatoid factor present?LAB: U-Y-[place]urg Protein (CRP), High Sensitivity (Collection Date & [...] * Images: Billing Information: * Visit Code: 56252 Office Visit, Est Pt., Level 4. * Procedure Codes: 75546 Urinalysis, no micro. * Electronic signature of MATT Gutierrez on 03/25/2025 at 01:36 PM EDT Sign off status: Pending * Provider: [place] Sanchez Date: 0 10/25/2024 Generated for Printi ng/Faxing/eTransmitting on: 0 03/25/2025 01:36 PM EDT History and Physical Notes * [...]
--- OUTSIDE RECORDS SUMMARY | 2024-12-26 12:45 | XMS_ITS ---
Author Organization [facility] Address [address] [facility] [address] [place], [place] [id number] Care Team Providers Care Highway Painter Helper Name Role Phone Sally Cordova Primary Care [...] Interpretation:Normal Performing Lab: Notes/Report: Test performed by [facility] [address] [facility] , [address], [place] [address] Ramirez Thomason MD, Evaluation Advisor CLIA: [id number] B burgdorferi (Lyme Disease) IgG Negative Negative B burgdorferi (Lyme Disease) IgM Negative Negative P-Comprehensive Metabolic Pa rickie (CMP) Reviewed date:12/31/2024 08:23:56 AM Interpretation:Normal Performing Lab: Notes/Report: Test performed by [facility] [address] [place] [address] , [address], [place] [address] Ramirez Thomason MD, Evaluation Advisor CLIA: [id number] Sodium 138 135-145 mmol/L Potassium 4.0 3.5-5.3 [...] 0.7 <0.2-1.2 mg/dL A/G Ratio 1.5 1.1-2.5 T-E-Xscanevk Protein (CRP), High Sensitivity Reviewed date:12/31/2024 08:23:56 AM Interpretation:Normal Performing Lab: Notes/Report: Test performed by [facility] [address] [place] [address] , [address], [place] [id number] Ramirez Thomason MD, Evaluation Advisor CLIA: [id number] C-Reactive Protein (CRP), High Sensitivity 0.70 <3.01 [...] Interpretation:Normal Performing Lab: Notes/Report: Test performed by [facility], [address] , [address], [place] [address] Ramirez Thomason MD, Evaluation Advisor CLIA: [id number] AND Test performed by [facility] [address] [place] [address] Celia Lemus MD, Evaluation Advisor B. burgdorferi Antibody IgG Immunoblot Negative Negative [...] developed and its performance characteristics determined by [facility]. It has not been cleared or approved by the US Food and Drug Administration. This test was performed in a CLIA certified laboratory and is intended for clinical purposes. Performed By: [facility] [address] [place], [place] [id number] Evaluation Advisor: Ramón Prakash MD, PhD CLIA Number: [id number] A. phagocytophilum Ab IgG <1:80 <1:80 INTERPRETIVE INFORMATION: A. phagocytophilum (HGA) Antibody, IgG Less than 1:80 - No significant level of IgG antibodies to A. phagocytophilum detected. Greater than or equal to 1:80 - Suggestive of a recent or past infection with A. phagocytophilum. This test was developed and its performance characteristics determined by [facility]. It has not been cleared or approved by the US Food and Drug Administration. This test was performed in a CLIA certified laboratory and is intended for clinical purposes. P-Sed Rate (ESR) Reviewed date:12/31/2024 08:23:56 AM Interpretation:Normal Performing Lab: Notes/Report: Test performed by [facility] [address] [place] [address] [place] [address] Ramirez Thomason MD, Evaluation Advisor CLIA: [id number] Erythrocyte Sedimentation Rate (ESR), Automated 9 <26 mm/hr P-T4 Free (thyroxine) Reviewed date:12/31/2024 08:23:56 AM Interpretation:Normal Performing Lab: Notes/Report: Test performed by [facility] [address] [place] [address] [place] [address] Ramirez Thomason MD, Evaluation Advisor CLIA: [id number] Thyroxine Free (free T4) 1.12 0.86-1.76 ng/dL P-TSH Reviewed date:12/31/2024 08:23:56 AM Interpretation:Normal Performing Lab: Notes/Report: Test performed by [facility] [address] [place] [address] [place] [address] Ramirez Thomason MD, Evaluation Advisor CLIA: [id number] TSH 1.53 0.43-5.25 mU/L P-Vitamin D 25-Hydroxy Reviewed date:12/31/2024 08:23:56 AM Interpretation:25.4 Performing Lab: Notes/Report: Test performed by [facility] [address] [place] [address] [place] [address] Ramirez Thomason MD, Evaluation Advisor CLIA: [id number] Vitamin D 25-Hydroxy 25.4 30.0-100.0 ng/mL Interpretation [...] days Active Vitamin D (Ergocalciferol) 1.25 MG (90361 UT) 1 capsule Orally once a week; Duration: 30 days Active Trulance 3 MG 1 tablet Orally Once a day; Duration: 90 days 12/28/2023 Active Vital Signs Weight 188 lbs 12/26/2024 Height 67 in 12/26/2024 BMI 29.44 kg/m2 12/26/2024 Encounters Encounter Location Date Provider Diagnosis [facility] [address] [facility] [address] [place], [place] [phone] 12/26/2024 Sally Cordova Rheumatoid arthritis involving multiple [...] * CHIKA MURODOB:1985 ([age] yo F)Acc No.[id number]:12/26/2024 Progress Notes Patient: CHIKA KRISHNAMURTHY Provider: M[place] Sanchez :1985 A ge:39 Y S ex:Female Date:12/26/2024 Address:[address] [place] [address] Subjective: * Chief Complaints: * 1 . [...] Ablation 12/2012, Colonoscopy 2014, Hysterectomy- Dr. Perea, [facility] 11/30/2014, Laperoscopy 11/19/2019, Colonoscopy, 1 Polyp Removed, Repeat 3 Years 02/22/2023, Thyroid Nodule Biopsy 10/22/2024. * Hospitalization/Major Diagno stic Procedure: M igraine, Lumbar Puncture- [facility] 04/04-10/2017, Migraine- [facility] 06/20/2018, Abdominal Pain, Constipation- [facility] 12/17-, Aura Migraine- [facility] 03/13/2020, Elevated BP- [facility] 07/15/2021, Abdominal Pain, Vomiting- [facility] 12/26/2022, Abdominal Pain, Vomiting- [facility] 12/28/2022, Abdominal Pain, Vomiting- [facility] 12/29-12/31/2022, Abdominal Pain, Vomiting- [facility] 02/05-05/2023. * Family History: F ather: alive [...] , Taking Vitamin D (Ergocalciferol) 1.25 MG (92056 UT) Capsule 1 capsule Orally once a [...] 12/30/2024 1 1:24:52 PM EDT >sent to [facility] 12/31/2024 08:23:44 AM EDT > Noted ?LAB: P-Sed Rate (ESR) (Collection Date & Time - 12/26/2024 12:03 PM)?Normal * Value Reference Range E rythrocyte Sedimentation Rate (ESR), Automated 9 <26 - mm/hr * Sally Cordova Dione 12/30/2024 1 1:24:52 PM EDT >sent to [facility] 12/31/2024 08:23:44 AM EDT > Noted 2.?Thyroid nodule?LAB: P-T4 Free (thyroxine) (Collection Date & Time - 12/26/2024 12:03 PM)? Normal* Value Reference Range T hyroxine Free (free T4) 1.12 0.86-1.76 - ng/d L * Sally Cordova Dione 12/30/2024 1 1:24:52 PM EDT >sent to [facility] 12/31/2024 08:23:44 AM EDT > Noted ?LAB: P-TSH (Collection Date & Time - 12/26/2024 12:03 PM)?Normal* Value Reference Range T SH 1.53 0.43-5.25 - mU/L * Sally Cordova Dione 12/30/2024 1 1:24:52 PM EDT >sent to [facility] 12/31/2024 08:23:44 AM EDT > Noted 3.?Fatigue, unspecified type?LAB: P-Lyme Disease (B. burgodorferi), IgG/IgM, BIN, Serum (Collection Date & Time - 12/26/2024 12:03 PM)?Normal* Value Reference Range B burgdorferi (Lyme Disease) IgG Negative Negative - * B burgdorferi (Lyme Disease) IgM Negative Negative - * Sally Cordova 12/30/2024 1 1:24:52 PM EDT >sent to [facility] 12/31/2024 08:23:44 AM EDT > Noted ?LAB: P-T4 Free (thyroxine) (Collection Date & Time - 12/26/2024 12:03 PM)? Normal* Value Reference Range T hyroxine Free (free T4) 1.12 0.86-1.76 - ng/d L * Sally Cordova 12/30/2024 1 1:24:52 PM EDT >sent to [facility] 12/31/2024 08:23:44 AM EDT > Noted ?LAB: P-TSH (Collection Date & Time - 12/26/2024 12:03 PM)?Normal* Value Reference Range T SH 1.53 0.43-5.25 - mU/L * Sally Cordova 12/30/2024 1 1:24:52 PM EDT >sent to [facility] 12/31/2024 08:23:44 AM EDT > Noted ?LAB: Influenza Screen (in house) (Collection Date & Time - 12/26/2024)* Value Reference Range r esults Neg * [facility] 12/26/2024 11:12: 44 AM EDT > Provider [...] B M Interpretation See Below - * [facility], support 12/30/2024 05:45:07 : This order was created by the Interface. Shmuel Cordovaselina Parham 12/30/2024 11:24:52 PM EDT >sent to [facility] 12/31/2024 08:23:44 AM EDT > Noted * Procedure Codes: 8 5025 CBC WITH AUTO DIFF, 58513 VENIPUNCT, ROUTINE*, 05441 Flu Test- Nasal Swab, Modifiers: QW , 84488 COVID TEST IN HOUSE, Modifiers: QW * Follow Up: v ia phone to report test results * Images: Billing Information: * Visit Code: 37818 Office Visit, Est Pt., Level 4. * Procedure Codes: 35866 CBC WITH AUTO DIFF. 16366 VENIPUNCT, ROUTINE*. 91840 Flu Test- Nasal Swab. Modifiers: QW 72644 COVID TEST IN HOUSE. Modifiers: QW * Electronic signature of MATT Gutierrez on 03/25/2025 at 01:37 PM EDT Sign off status: Pending * Provider: M[place] Sanchez Date: 0 12/26/2024 Generated for Odin schneider/Antoni/Ebenitting on: 0 03/25/2025 01:37 PM EDT History and Physical Notes * [...]
--- OUTSIDE RECORDS SUMMARY | 2025-02-07 11:30 | XMS_ITS ---
Author Organization [facility] Address [address] [facility] [address] [id number] Care Team Providers Care Concrete Stone Finisher Name Role Phone Sally Cordova Primary Care Provider Allergies Allergen (clinical drug ingredient) Drug/Non Drug Allergy documented on EMR Reaction Allergy Type Onset Date Status sulfamethoxazole / trimethoprim Bactrim hives Drug Allergy Active cefaclor Cefaclor hives Drug Allergy Active indomethacin Indomethacin dizziness Drug Allergy A ctive REASON FOR VISIT abscess tooth Medications Medication SIG (Take, Route, Frequency, Duration) Notes Start Date End Date Status Omeprazole 40 MG 1 capsule 30 minutes before morning meal Orally Once a day; Duration: 90 days Active Vitamin D (Ergocalciferol) 1.25 MG (78311 UT) 1 capsule Orally once a week; Duration: 30 days Active Meclizine HCl 25 mg TAKE ONE TABLET BY M OUTH THREE TIMES DAILY NEEDED; Duration: 7 Active Montelukast Sodium 10 mg 1 tablet Orally Once a day; Duration: 90 days Active DULoxetine HCl 60 mg TAKE ONE CAPSULE BY MOUTH EVERY DAY; Duration: 30 days Active Ondansetron 4 mg DISSOLVE ONE TABLET UNDER THE TONGUE THREE TIMES DAILY NEEDED; Duration: 10 Active Humira (2 Pen) 40 MG/0.4ML INJECT 40 MG SUBCUTANEOUSLY EVERY 2 WEEKS; Duration: 28 Acti ve Trulance 3 MG 1 tablet Orally Once a day; Duration: 90 days 12/28/2023 Active tiZANidine HCl 2 MG 1 tablet as needed O rally Three times a day; Duration: 30 day(s) 01/12/2023 Active Bisoprolol Fumarate 5 MG 1 tablet Orally Once a day; Duration: 90 days 06/21/2024 Active Promethazine HCl 25 mg TAKE ONE TABLET B Y MOUTH EVERY 6 HOURS NEEDED MAY CAUSE DROWSINESS; Duration: 8 Active Encounters Encounter Location Date Provider Diagnosis [facility] [address] [facility] [address] [place] [phone] 02/07/2025 Sally Cordova Plan Of Treatment No Information Progress Notes * TAMMY RAUSCHDOB:1985 ([age] yo F)Acc No.[id number]:02/07/2025 Progress Notes Patient: TAMMY KRISHNAMURTHY Provider: [place] Sanchez :1985 A ge:39 Y S ex:Female Date:02/07/2025 Address:[address] [place] [address] Subjective: * Chief Complaints: * 1 . Abscess tooth. * HPI: H PI: 39 year old female presents with c/o Patient is here today for?Pt complains of severe tooth pain that started yesterday. Pt states her dentist has retired and she cannot get into new dentist for over a month. Pt requesting abx to help with infection until she can find somewhere she can get into sooner. * ROS: D ERMATOLOGY: no R tim. n o H cindy. G ASTROENTEROLOGY: no N ausea. n o V omiting. U ROLOGY: no D ifficulty urinating. n o B lood in urine. * Medical History: H ypertension, Hyperlipidemia, Allergic Rhinitis, Depression, Endometriosis, Migraines, RA Factor Positive 2017, Rheumatoid Arthritis, Anxiety. * Surgical History: C holecystectomy 2003, D & C 2003,2005, Filshie Clips Tubal Ligation 05/21/2012, Endometrial Ablation 12/2012, Colonoscopy 2014, Hysterectomy- Dr. Perea, [facility] 11/30/2014, Laperoscopy 11/19/2019, Colonoscopy, 1 Polyp Removed, Repeat 3 Years 02/22/2023, Thyroid Nodule Biopsy 10/22/2024. * Hospitalization/Major Diagno stic Procedure: M igraine, Lumbar Puncture- [facility] 04/04-10/2017, Migraine- [facility] 06/20/2018, Abdominal Pain, Constipation- [facility] 12/17-, Aura Migraine- [facility] 03/13/2020, Elevated BP- [facility] 07/15/2021, Abdominal Pain, Vomiting- [facility] 12/26/2022, Abdominal Pain, Vomiting- [facility] 12/28/2022, Abdominal Pain, Vomiting- [facility] 12/29-12/31/2022, Abdominal Pain, Vomiting- [facility] 02/05-05/2023. * Family History: F ather: [...] , Taking Vitamin D (Ergocalciferol) 1.25 MG (74970 UT) Capsule 1 capsule Orally once a [...] 40 MG SUBCUTANEOUSLY EVERY 2 WEEKS , Medication List reviewed and reconciled with the patient * Allergies: C efaclor: hives - Allergy, Bactrim: hives - Allergy, Indomethacin: dizziness - Side Effects. Objective: * Vitals: Assessment: Plan: * Treatment: * Images: Billing Information: * Visit Code: * Procedure Codes: * Electronic signature of M[place] Gutierrez on 03/25/2025 at 01:36 PM EDT Sign off status: Pending * Provider: [place] Sanchez Date: 0 02/07/2025 Generated for Odin schneider/Antoni/Ebenitting on: 0 03/25/2025 01:36 PM EDT History and Physical Notes * HPI (History of Present Illness) Category Sub-Category Detail Notes Category Not es HPI Patient is here today for Pt com plains of severe tooth pain that started yesterday. Pt states her dentist has retired and she cannot get into new dentist for over a month. Pt requesting abx to help with infection until she can find somewhere she can get into sooner
--- OUTSIDE RECORDS SUMMARY | 2025-02-17 07:15 | XMS_ITS ---
Author Organization [facility] Address 1210 [facility] [address] [id number] Care Team Providers Care Candy Butcher Name Role Phone Sally Cordova Primary Care Provider [phone] Maggy Quiroz Unavailable [phone] Allergies Allergen (clinical drug ingredient) Drug/Non Drug [...] days Active Vitamin D (Ergocalciferol) 1.25 MG (95504 UT) 1 capsule Orally once a week; [...] W/U Status Risk Notes Problem Acute constipation (403603041) Acute constipation (K59.00) Active confirmed Vital Signs Weight 179 lbs 02/17/2025 Blood pressure systolic 130 mm Hg 02/18/20 25 Blood pressure diastolic 76 mm Hg 025 Heart Rate 104 /min 02/17/2025 Height 67 in 02/17/2025 BMI 28.03 kg/m2 02/17/2025 Encounters Encounter Location Date Provider Diagnosis [facility] [address] [place], [place] [phone] 02/17/2025 Maggy Quiroz Abdominal pain R10.9 and [...] * TAMMY RAUSCHDOB:1985 ([age] yo F)Acc No.[id number]:02/17/2025 Progress Notes Patient: TAMMY KRISHNAMURTHY Provider: RAJESH Roldan :1985 A ge:39 Y S ex:Female Date:02/17/2025 Address:[address] [place] [address] Pcp:Sally Cordova Subjective: * Chief Complaints: * [...] Hysterectomy- Dr. Perea, [facility] 11/30/2014, Laperoscopy 11/19/2019, Colonoscopy, 1 Polyp Removed, Repeat 3 Years 02/22/2023, Thyroid Nodule Biopsy 10/22/2024. * Hospitalization/Major Diagno stic Procedure: M igraine, Lumbar Puncture- [facility] 04/04-10/2017, Migraine- [facility] 06/20/2018, Abdominal Pain, Constipation- [facility] 12/17-, Aura Migraine- [facility] 03/13/2020, Elevated BP- [facility] 07/15/2021, Abdominal Pain, Vomiting- [facility] 12/26/2022, Abdominal Pain, Vomiting- [facility] 12/28/2022, Abdominal Pain, Vomiting- [facility] 12/29-12/31/2022, Abdominal Pain, Vomiting- [facility] [...] , Taking Vitamin D (Ergocalciferol) 1.25 MG (59082 UT) Capsule 1 capsule Orally once a [...] Procedure Codes: 3 6416 CAPILLARY BLOOD DRAW, 16552 CBC WITH AUTO DIFF, 14371 Urinalysis, no micro, 1036F TOBACCO NON-USER, 3075F SYST BP GE 130 - 139MM HG, 3078F DIAST BP < 80 MM HG * Follow Up: p rn * Images: Billing Information: * Visit Code: 78605 Office Visit, Est Pt., Level 3. * Procedure Codes: 68123 CAPILLARY BLOOD DRAW. 51184 CBC WITH AUTO DIFF. 14919 Urinalysis, no micro. 1036F TOBACCO NON-USER. 3075F SYST BP GE 130 - 139MM HG. 3078F DIAST BP < 80 MM HG. * Electronic signature of Deisy Quiroz APRN on 03/25/2025 at 01:37 PM EDT Sign off status: Pending * Provider: RAJESH Roldan Date: 0 02/17/2025 Generated for Odin schneider/Antoni/Stacia on: 0 03/25/2025 01:37 PM EDT History [...]
--- NOTE | 2025-03-25 13:36 | US_ITS ---
FINAL REPORT TECHNIQUE: Limited sonographic images of the thyroid were obtained. CLINICAL HISTORY: THYROID NODULE COMPARISON: 10/08/2024 FINDINGS: The right lobe of the thyroid measures 2.2 x 4.1 x 1.1 cm. There is a hyperechoic 17 mm nodule that is wider than tall consistent with TR 3. This has not significantly changed since the prior. Differences in size is favored to be technique. The left lobe is mildly heterogeneous measuring 1.9 x 4.5 x 1.3 cm. No mass or nodule is identified. The isthmus measures 5 mm. IMPRESSION: Stable TR 3 nodule in the right lobe. Recommend continued follow-up in 6 to 12 months. Reviewed, Interpreted and Dictated by Alondra Smith MD Transcribed by Marycarmen Mckenzie Authenticated and . [facility]
--- OUTSIDE RECORDS SUMMARY | 2025-03-25 13:36 | XMS_ITS | Clinical Summary ---
Author Organization [facility] Address [address] [place] [address] Care Team Providers Care Manager Actuarial Name Role Phone Sally Cordova Primary Care Provider [phone] Allergies Active Allergy Reactions Criticality Noted Date [...] capsule Active vitamin D (ERGOCALCIFEROL) 1.25 MG (26484 UT) capsule capsule Take 1 capsule by [...] to Titer; Future XR Chest 2 View care home (current) use of n on-steroidal anti-inflammatories (nsaid) 06/03/2024 Assessment & Plan (06/03/2024 1:45 PM EST): Failed indomethacin and meloxicam Risks of nonsteroidal anti-inflammatory drugs discussed including GI upset, GI bleeding, renal and hepatic risk, and the risks of cardiovascular disease. Warned not to take with other NSAIDs including [id number] NSAIDs. Family History Medical History Relation Name [...] 06/03/2024 12:46 PM EST Plan of Treatment Health Maintenance Due Date Last Done Comments Annual Gynecologic Pelvic an d Breast Exam 1984 Pneumococcal Vaccine 0-49 (1 of 2 - PCV) 10/30/2003 ANNUAL PHYSICAL 02/08/2024 MAMMOGRAM 2024 INFLUENZA VACCINE 01/31/2025 05/17/2024, , 06/16/2014, Additional history exists TDAP/TD [...] ve Non-Reacti ve 06/03/2024 11:16 PM EST [facility] Hep A IgM Non-Reacti ve Non-Reacti ve 06/03/2024 11:16 PM EST [facility] Hep B C IgM Non-Reacti ve Non-Reacti ve 06/03/2024 11:16 PM EST [facility] Hepatitis C Ab Non-Reacti ve Non-Reacti ve 06/03/2024 11:16 PM EST [facility] Blood Venipuncture / Unknown 06/03/2024 2:02 PM EST 06/03/2024 2:02 PM EST Narrative [facility] - 06/03/2024 11:16 PM EST Results may be falsely decreased if patient taking Biotin. Mario Mensah MD LAB BLOOD ORDERABLES Final Res ult [facility]
[address] [place] [address], from Last 3 Months or Most Recently Relevant to Health Maintenance Insurance [facility] Care Teams Manager Actuarial Relationship Specialty Start Date End Date Sally Cordova [place] [address] [place] [address] [address] PCP - General Physician [employer] 10/17/23
--- OUTSIDE RECORDS SUMMARY | 2025-03-25 13:37 | XMS_ITS | Patient Health Record ---
Author Organization [facility] Address [address] [facility] [address] [id number] Care Team Providers Care Dumper Mold Cleaner Name Role Phone Sally Cordova Primary Care Provider Maggy Quiroz Unavailable [phone] Allergies Allergen (clinical drug ingredient) Drug/Non Drug [...] 1.020 Ketone Neg Bili Neg Gluc Neg N-K-Avhldfff Protein (CRP), High Sensitivity Reviewed date:11/01/2024 11:56:22 AM Interpretation:Normal Performing Lab: Notes/Report: Test performed by [facility] [address] [place] [address] , [address], [place] [address] Ramirez Thomason MD, Procurement Intern CLIA: [id number] C-Reactive Protein (CRP), High Sensitivity 0.30 <3.01 [...] Interpretation:Normal Performing Lab: Notes/Report: Test performed by Pem[facility] Panjur [address] [place] [address] , [place] [address] Ramirez Thomason MD, Procurement Intern CLIA: [id number] Erythrocyte Sedimentation Rate (ESR), Automated 5 <26 mm/hr P-T4 Free (thyroxine) Reviewed date:11/01/2024 11:56:22 AM Interpretation:Normal Performing Lab: Notes/Report: Test performed by [facility] [address] , [place] [address] Ramirez Thomason MD, Procurement Intern CLIA: [id number] Thyroxine Free (free T4) 1.09 0.86-1.76 ng/dL P-Thyroid Antibody Panel (TA BS) Reviewed date:11/01/2024 11:56:22 AM Interpretation:Thyroglobulin antibody 234.0 Performing Lab: Notes/Report: Test performed by [facility] [address] , [place] [address] Ramirez Thomason MD, Procurement Intern CLIA: [id number] Thyroid Peroxidase Antibody 13 <9-34 IU/mL An [...] Interpretation:Normal Performing Lab: Notes/Report: Test performed by [facility] [address] , [place] [address] Ramirez Thomason MD, Procurement Intern CLIA: [id number] TSH 1.94 0.43-5.25 mU/L TEN-Vaginal Infection panel Reviewed date:11/01/2024 11:56:22 AM Interpretation:Abnormal Performing Lab: Notes/Report: Abnormal Influenza Screen (in house) Reviewed date:12/26/2024 04:42:05 [...] 291 100 - 400 P-Lyme Disease (B. burgodorf lopez), IgG/IgM, BIN, Serum Reviewed date:12/31/2024 08:23:56 AM Interpretation:Normal Performing Lab: Notes/Report: Test performed by [facility] Panjur [address] [place] [address] , [place] [address] Ramirez Thomason MD, Procurement Intern CLIA: [id number] B burgdorferi (Lyme Disease) IgG Negative Negative B burgdorferi (Lyme Disease) IgM Negative Negative P-Comprehensive Metabolic Pa rickie (CMP) Reviewed date:12/31/2024 08:23:56 AM Interpretation:Normal Performing Lab: Notes/Report: Test performed by [facility]em[facility] Panjur [address] [place] [address] , [address], [place] [address] Ramirez Thomason MD, Procurement Intern CLIA: [id number] Sodium 138 135-145 mmol/L Potassium 4.0 3.5-5.3 [...] 0.7 <0.2-1.2 mg/dL A/G Ratio 1.5 1.1-2.5 D-M-Jrzfwxvp Protein (CRP), High Sensitivity Reviewed date:12/31/2024 08:23:56 AM Interpretation:Normal Performing Lab: Notes/Report: Test performed by [facility] Panjur [facility] [place] , [place] [address] Ramirez Thomason MD, Procurement Intern CLIA: [id number] C-Reactive Protein (CRP), High Sensitivity 0.70 <3.01 [...] Interpretation:Normal Performing Lab: Notes/Report: Test performed by [facility]embe Panjur [facility] [place] , [address], [place] [address] Ramirez Thomason MD, Procurement Intern CLIA: [id number] AND Test performed by [email or web address] [address] [place] [address] Celia Lemus MD, Procurement Intern B. burgdorferi Antibody IgG Immunoblot Negative Negative [...] developed and its performance characteristics determined by [email or web address]. It has not been cleared or approved by the US Food and Drug Administration. This test was performed in a CLIA certified laboratory and is intended for clinical purposes. Performed By: [email or web address] [address] [place] [address] Procurement Intern: Ramón Prakash MD, PhD CLIA Number: [id number] A. phagocytophilum Ab IgG <1:80 <1:80 INTERPRETIVE INFORMATION: A. phagocytophilum (HGA) Antibody, IgG Less than 1:80 - No significant level of IgG antibodies to A. phagocytophilum detected. Greater than or equal to 1:80 - Suggestive of a recent or past infection with A. phagocytophilum. This test was developed and its performance characteristics determined by [email or web address]. It has not been cleared or approved by the US Food and Drug Administration. This test was performed in a CLIA certified laboratory and is intended for clinical purposes. P-Sed Rate (ESR) Reviewed date:12/31/2024 08:23:56 AM Interpretation:Normal Performing Lab: Notes/Report: Test performed by [facility], [address] , [address], [place] [address] Ramirez Thomason MD, Procurement Intern CLIA: [id number] Erythrocyte Sedimentation Rate (ESR), Automated 9 <26 mm/hr P-T4 Free (thyroxine) Reviewed date:12/31/2024 08:23:56 AM Interpretation:Normal Performing Lab: Notes/Report: Test performed by [facility] [address] , [address], [place] [address] Ramirez Thomason MD, Procurement Intern CLIA: [id number] Thyroxine Free (free T4) 1.12 0.86-1.76 ng/dL P-TSH Reviewed date:12/31/2024 08:23:56 AM Interpretation:Normal Performing Lab: Notes/Report: Test performed by [facility] [address] , [address], [place] [address] Ramirez Thomason MD, Procurement Intern CLIA: [id number] TSH 1.53 0.43-5.25 mU/L P-Vitamin D 25-Hydroxy Reviewed date:12/31/2024 08:23:56 AM Interpretation:25.4 Performing Lab: Notes/Report: Test performed by [facility] [address] , [place] [id number] Ramirez Thomason MD, Procurement Intern CLIA: [id number] Vitamin D 25-Hydroxy 25.4 30.0-100.0 ng/mL Interpretation of Vitamin D 25 OH: < 20 ng/mL - Deficiency 20 - 29 ng/mL - Insufficiency 30 - 100 ng/mL - Sufficiency > 100 ng/mL - Super-therapeutic- toxicity may occur above this level. Clinical correlation required. Covid test (in house) Reviewed date:12/26/2024 04:42:15 PM Interpretation: Performing Lab: Notes/Report: Result: Neg Holter - 7 day Reviewed date:12/04/2024 03:41:37 PM Interpretation:PVC's and PAC's Performing Lab: Notes/Report: PVC's and PAC's X ray : KUB Reviewed date:11/01/2024 01:33:36 PM Interpretation:No Significant Constipation Performing Lab: Notes/Report: No Significant Constipation ultrasound : thyroid Reviewed date:05/16/2024 10:25:23 AM Interpretation:right thyroid nodule, consider f/u in 6-12 months Performing Lab: Notes/Report: right thyroid nodule, consider f/u in 6-12 months P-TSH Reviewed date:05/10/2024 08:42:35 AM Interpretation: Performing Lab: Notes/Report: Test performed by [facility] [address] [place] [address] Ramirez Thomason MD, Procurement Intern CLIA: [id number] TSH 2.34 0.43-5.25 mU/L P-Thyroid Antibody Panel (TA BS) Reviewed date:05/10/2024 08:42:35 AM Interpretation: Performing Lab: Notes/Report: Test performed by [facility] [address] [place] [address] Ramirez Thomason MD, Procurement Intern CLIA: [id number] Thyroid Peroxidase Antibody 17 <9-34 IU/mL An [...] methods or kits cannot be directly compared. P-T4 Free (thyroxine) Reviewed date:05/10/2024 08:42:35 AM Interpretation: Performing Lab: Notes/Report: Test performed by [facility] Pan[facility] [address] [place] [address] [place] [address] Ramirez Thomason MD, Procurement Intern CLIA: [id number] Thyroxine Free (free T4) 1.09 0.86-1.76 ng/dL P-Basic Metabolic Panel (BMP ) Reviewed date:05/10/2024 08:42:35 AM Interpretation: Performing Lab: Notes/Report: Test performed by P[facility] Panjur [address] [place] [address] [place] [address] Ramirez Thomason MD, Procurement Intern CLIA: [id number] Sodium 140 135-145 mmol/L Potassium 3.9 3.5-5.3 mmol/L Chloride 105 97-108 mmol/L CO2 21 22-32 mmol/L Glucose 92 65-99 mg/dL BUN 13 6-20 mg/dL Creatinine 0.85 0.50-1.00 mg/dL Calcium 9.5 8.6-10.4 mg/dL eGFR by Creatinine 89 >59 mL/min/1.73m2 X ray : Abdomen Series Reviewed date:02/18/2025 02:32:08 PM Interpretation: Performing Lab: Notes/Report: CBC Fingerstick (in house) Reviewed date:02/17/2025 03:52:15 [...] 236 100 - 400 Urinalysis - Inhouse Reviewed date:02/17/2025 03:52:29 PM Interpretation: Performing Lab: Notes/Report: Color/Clarity dark yellow/clear Leuk neg Nitrite neg Urobili 16 Protein trace pH 7.0 Blood neg Sp. Gr. 1.020 Ketone trace Bili neg Gluc neg Mammogram Reviewed date:10/17/2024 10:13:01 AM Interpretation: Performing Lab: Notes/Report: Mammogram Reviewed date:10/17/2024 10:13:01 AM Interpretation: Performing Lab: Notes/Report: Ultrasound : Breast, right Reviewed date:10/17/2024 10:13:46 AM Interpretation: Performing Lab: Notes/Report: CBC Fingerstick (in house) Reviewed date:03/26/2024 01:29:51 [...] 08:47:19 AM Interpretation:clostridium Performing Lab: Notes/Report: clostridium Urinalysis - Inhouse Reviewed date:07/05/2024 01:29:14 PM Interpretation: Performing Lab: Notes/Report: Color/Clarity dark yellow/clear Leuk Neg Nitrite Neg Urobili 33 Protein Neg pH 6.5 Blood Neg Sp. Gr. 1.025 Ketone Trace Bili 1+ Gluc Neg TEN-Vaginal Infection panel Reviewed date:07/10/2024 09:09:30 AM Interpretation:Abnormal Performing Lab: Notes/Report: Abnormal Urinalysis - Inhouse Reviewed date:10/03/2024 03:15:36 PM Interpretation: Performing Lab: Notes/Report: Color/Clarity yellow/cloudy Leuk Neg Nitrite Neg Urobili 3.2 Protein Neg pH 6.5 Blood Neg Sp. Gr. 1.020 Ketone Neg Bili Neg Gluc Neg Antinuclear Antibodies (ROSARIO) Screen Reviewed date:10/10/2024 01:29:24 PM Interpretation: Performing Lab: Notes/Report: Test performed by [facility] [address] [place] [address] , [address], [place] [address] Ramirez Thomason MD, Procurement Intern CLIA: [id number] Antinuclear Antibodies (ROSARIO) Screen Positive Negative This test is perform ed by Multiplex Bead Immunoassay methodology. P-CBC with Diff plus Absolut e Counts Reviewed date:10/10/2024 01:29:24 PM Interpretation: Performing Lab: Notes/Report: Test performed by [facility] [address] [place] [address] , [address], [place] [address] Ramirez Thomason MD, Procurement Intern CLIA: [id number] WBC 6.7 3.8-11.5 K/uL Red Blood Cell [...] Interpretation: Performing Lab: Notes/Report: Test performed by [facility] [address] [place] [address] , [address], [place] [address] Ramirez Thomason MD, Procurement Intern CLIA: [id number] CCP Antibodies <0.5 <0.5-3.0 U/mL P-Comprehensive Metabolic Pa rickie (CMP) Reviewed date:10/10/2024 01:29:24 PM Interpretation: Performing Lab: Notes/Report: Test performed by [facility] [address] [place], [place] [address] [place] , [address], [place] [id number] Ramirez Thomason MD, Procurement Intern CLIA: [id number] Sodium 140 135-145 mmol/L Potassium 4.3 3.5-5.3 [...] 0.5 <0.2-1.2 mg/dL A/G Ratio 1.6 1.1-2.5 I-T-Wngnzmzv Protein (CRP) Reviewed date:10/10/2024 01:29:24 PM Interpretation: Performing Lab: Notes/Report: Test performed by [facility] , [place] [address] Ramirez Thomason MD, Procurement Intern CLIA: [id number] C-Reactive Protein (CRP) 0.05 <0.50 mg/dL P-Sed Rate (ESR) Reviewed date:10/10/2024 01:29:24 PM Interpretation: Performing Lab: Notes/Report: Test performed by [facility] , [place] [address] Ramirez Thomason MD, Procurement Intern CLIA: [id number] Erythrocyte Sedimentation Rate (ESR), Automated 31 <26 mm/hr P-Rheumatoid Factor Reviewed date:10/10/2024 01:29:24 PM Interpretation: Performing Lab: Notes/Report: Test performed by [facility] [address] , [facility] [place] [address] Ramirez Thomason MD, Procurement Intern CLIA: [id number] Rheumatoid Factor 10.0 <14.1 IU/mL P-T4 Free (thyroxine) Reviewed date:10/10/2024 01:29:24 PM Interpretation: Performing Lab: Notes/Report: Test performed by [facility] [address] , [facility] [place] [address] Ramirez Thomason MD, Procurement Intern CLIA: [id number] Thyroxine Free (free T4) 1.00 0.86-1.76 ng/dL HLA-B27 Antigen Reviewed date:10/10/2024 01:29:24 PM Interpretation: Performing Lab: Notes/Report: HLA-B27 Negative Negative INTERPRETIVE INFORMATION: HLA-B27 HLA-B27 is a serologically defined allele of the human HLA-B locus. The presence of the HLA-B27 antigen is strongly associated with ankylosing spondylitis and related disorders. This test was developed and its performance characteristics determined by [email or web address]. It has not been cleared or approved by the [place] Food and Drug Administration. This test was performed in a CLIA certified laboratory and is intended for clinical purposes. Performed By: [email or web address] [address] [place] [address] Procurement Intern: Ramón Prakash MD, PhD CLIA Number: [id number] P-TSH Reviewed date:10/10/2024 01:29:24 PM Interpretation: Performing Lab: Notes/Report: Test performed by [facility] [address] [place] [address] , [address], [place] [address] Ramirez Thomason MD, Procurement Intern CLIA: [id number] TSH 1.84 0.43-5.25 mU/L P-Vitamin D 25-Hydroxy Reviewed date:10/10/2024 01:29:24 PM Interpretation: Performing Lab: Notes/Report: Test performed by [facility] [address] [place] [address] , [address], [place] [address] Ramirez Thomason MD, Procurement Intern CLIA: [id number] Vitamin D 25-Hydroxy 16.0 30.0-100.0 ng/mL Interpretation of Vitamin D 25 OH: < 20 ng/mL - Deficiency 20 - 29 ng/mL - Insufficiency 30 - 100 ng/mL - Sufficiency > 100 ng/mL - Super-therapeutic- toxicity may occur above this level. Clinical correlation required. TEN-Vaginal Infection panel Reviewed date:10/09/2024 05:13:16 PM Interpretation:Abnormal Performing Lab: Notes/Report: Abnormal ultrasound : thyroid Reviewed date:10/10/2024 01:29:24 PM Interpretation: Performing Lab: Notes/Report: Reason For Referral Diagnosis 1 Rheumatoid arthritis involving multiple sites, unspecified whether rheumatoid factor present (M06.9) [facility] Referring Provider First Name Sally Referring Provider Last Name Tasha Referring Provider Speciality Physician Care Transition Mgr Referred Provider Rheumatology, . Referred Provider Specialty Rheumatology General Notes Sally Cordova 05/09 2:03:24 PM > [facility] RheumatologyIman Brynn 05/13/2024 11:59:53 AM > faxed to [facility] Scheduling Referral Priority Routine Reason patient needs to see endocrinology Diagnosis 1 Thyroid nodule (E04. 1) [facility] Referring Provider First Name Sally Referring Provider Last Name Tasha Referring Provider Speciality Physician Care Transition Mgr Referred Provider Specialty Endocrinolog y General Notes Radha Valerio 024 1:18:17 PM > faxed to [facility] EndocrinologyIman Brynn 05/20/2024 1:25:55 PM > appt 05/22/2024 at 10:00am Referral Priority Routine Diagnosis 1 Constipation, unspec ified constipation type (K59.00) [facility] Referring Provider First Name Sally Referring Provider Last Name Tasha Referring Provider Speciality Physician Care Transition Mgr Referred Provider BRIDGETTE CASILLAS Referred Provider Specialty Gastroentero logy General Notes Radha Valerio 024 8:38:27 AM > faxed to [facility] Gastroenterology, Radha Valerio 06/17/2024 9:54:40 AM > spoke with Rudy; resent lucianoxIman Brynn 06/19/2024 11:09:11 AM > confirmed order received with Rudy Referral Priority Routine Reason Thyroid enlargement Diagnosis 1 Thyromegaly (E04.9) Diagnosis 2 Enlarged thyroid (E0 4.9) Diagnosis 3 Thyroid nodule (E04. 1) Referral Organization [facility] Referring Provider First Name Sally Referring Provider Last Name Tasha Referring Provider Speciality Physician Care Transition Mgr Referred Organization [facility] Referred Address [address] [place] [address], [address],[place],[id number], Referred Provider Specialty ENT General Notes Radha Valerio 2024 01:17:24 PM > faxed to [facility] ENTIman Brynn 10/11/2024 08:51:34 AM > 10/15/2024 Referral Priority Routine Medications Medication SIG (Take, Route, Frequency, Duration) Notes Start Date End Date Status DULoxetine HCl 60 mg TAKE ONE CAPSULE BY MOUTH EVERY DAY; Duration: 30 days Active Vitamin D (Ergocalciferol) 1.25 MG (57331 UT) 1 capsule Orally once a week; Duration: 30 days Active tiZANidine HCl 2 MG 1 tablet as needed O rally Three times a day; Duration: 30 day(s) Active Meclizine HCl 25 mg TAKE ONE TABLET BY M OUT THREE TIMES DAILY NEEDED; Duration: 7 Active Omeprazole 40 MG 1 capsule 30 minutes before morning meal Orally Once a day; Duration: 90 days Active Trulance 3 MG 1 tablet Orally Once a day; Duration: 90 days 12/28/2023 Active Linzess 290 MCG 1 capsule at least 3 0 minutes before the first meal of the day on an empty stomach Orally Once a day; Duration: 30 days 02/18/2025 Active Bisoprolol Fumarate 5 MG 1 tablet [...] Status Risk Notes Problem Gastroesophageal reflux disease (522593611) GERD (gastroesophage al reflux disease) (K21.9) Active confirmed Problem Vitamin D deficiency (80462064) Vitamin D deficiency (E55.9) Active confirmed Problem Hypertension (30778778) Hypertension (I10) Active confirmed Problem Goiter (3984657) Enlarged thyroid (E04.9) Active confirmed Problem Mixed anxiety and depressive disorder (124159144) Depression with anxiety (F41.8) Active confirmed Problem Acute constipation (335167839) Acute constipation (K59.00) Active confirmed Problem Thyromegaly (9236305) Thyromegaly (E04.9) Active confirmed Problem Right bundle branch block (58552180) Right bundle branch block (I45.10) Active confirmed Problem Obesity (618523636) Obesity (BMI 30-39.9) (E66.9) Active confirmed Problem Thyroid nodule (319842722) Thyroid nodule (E04.1) Active confirmed Problem Constipation (08669311) Constipation, unspecified constipation type (K59.00) Active confirmed Problem Migraine (36800561) Migraine without status migrainosus, not intractable, unspecified migraine type (G43.909) Active confirmed Problem 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 Problem Fibrocystic breast changes (66372633) Fibrocystic changes of right breast (N60.11) Active confirmed Problem Obesity (299418726) Non morbid obesity (E66.9) Active confirmed Problem Hematuria syndrome (81780276) Hematuria, unspecified type (R31.9) Active confirmed Problem Seasonal allergic rhinitis (368251453) Seasonal allergic rhinitis, unspecified trigger (J30.2) Active confirmed Problem Rheumatoid arthritis (21419684) Rheumatoid arthritis involving multiple sites, unspecified whether rheumatoid factor present (M06.9) Active confirmed Vital Signs Heart Rate 104 /min 02/17/2025 Blood pressure diastolic 76 mm Hg 02/17/2025 Height 67 in 02/17/2025 Blood pressure systolic 130 mm Hg 02/17/2025 Weight 179 lbs 02/17/2025 BMI 28.03 kg/m2 02/17/2025 Encounters Encounter Location Date Provider Diagnosis [facility] [address] [facility] [address] [place] [id number] 03/26/2024 Maggy Quiroz Abdominal pain R10.9 and Diarrhea R19.7 [facility] [address] [place] [id number] 05/09/2024 Sally Crowdy Thyroid nodule E04.1 and Rheumatoid arthritis involving multiple sites, unspecified whether rheumatoid factor present M06.9 [facility] [address] [facility] [address] [place] [id number] 07/05/2024 Sally Crowdy Acute vaginitis N76. 0 [facility] [address] [place] [id number] 08/20/2024 Maggy Quiroz Breast pain, right N64.4 and Fibrocystic changes of right breast N60.11 [facility] [address] [facility] [address] [place], [place] [id number] 10/03/2024 Sally Crowdy Palpitations R00.2 ; Acute vaginitis N76.0 ; Thyroid nodule E04.1 ; Vitamin D deficiency E55.9 and Rheumatoid arthritis involving multiple sites, unspecified whether rheumatoid factor present M06.9 [facility] [address] [facility] [address] [place] [id number] 10/25/2024 Sally Crowdy Thyroid nodule E04.1 ; Acute vaginitis N76.0 ; Rheumatoid arthritis involving multiple sites, unspecified whether rheumatoid factor present M06.9 and BMI 29.0-29.9,adult Z68.29 [facility] [address] [place], [place] [id number] 12/26/2024 Sally Crowdy Rheumatoid arthritis involving multiple sites, unspecified whether rheumatoid factor present M06.9 ; Thyroid nodule E04.1 ; Fatigue, unspecified type R53.83 ; Palpitations R00.2 ; Vitamin D deficiency E55.9 and Body aches R52 [facility] [address] [place], [place] [id number] 02/17/2025 Maggy Quiroz Abdominal pain R10.9 and Acute constipation K59.00 [facility] [address] [place] [id number] 03/29/2024 Maggy Quiroz Diarrhea R19.7 [facility] [address] [place] [id number] 04/01/2024 Maggy Quiroz Diarrhea R19.7 [facility] [address] [place] [id number] 04/01/2024 Sally Crowdy [facility] [address] [place] [id number] 04/15/2024 Maggy Quiroz [facility] [address] [place] [id number] 05/15/2024 Sally Crowdy [facility] [address] [place] [id number] 05/31/2024 Sally Crowdy [facility] [address] [place] [id number] 06/12/2024 Sally Crowdy Constipation, unspecified constipation type K59.00 [facility] [address] [place] [id number] 06/21/2024 Sally Crowdy [facility] [address] [place] [id number] 07/10/2024 Sally Crowdy [facility] [address] [place] [id number] 07/29/2024 Sally Crowdy [facility] [address] [place] [id number] 08/02/2024 Sally Crowdy [facility] [address] [place] [id number] 08/20/2024 Sally Crowdy [facility] [address] [place] [id number] 08/29/2024 Sally Crowdy [facility] [address] [place] [id number] 09/11/2024 Sally Crowdy [facility] [address] [place] [id number] 09/28/2024 Sally Crowdy [facility] [address] [place] [id number] 10/04/2024 Salyl Crowdy [facility] [address] [place] [id number] 10/09/2024 Sally Crowdy [facility] [address] [place] [id number] 10/10/2024 Sally Crowdy [facility] [address] [place] [id number] 10/24/2024 Sally Crowdy [facility] [address] [place] [id number] 10/30/2024 Sally Crowdy Constipation, unspecified constipation type K59.00 [facility] [address] [place] [id number] 11/01/2024 Sally Crowdy [facility] [address] [place] [id number] 12/16/2024 Sally Crowdy [facility] [address] [place] [id number] 01/15/2025 Sally Crowdy [facility] [address] [place] [id number] 02/07/2025 Sally Cordova [facility] [address] [facility] [address] [place] [id number] 02/18/2025 Maggy Quiroz [facility] [address] [facility] [address] [place] [id number] 03/18/2025 Sally Cordova Assessments Encounter Date Diagnosis (ICD Code) Assessment Notes Treatment Notes Treatment Clinical Notes Section Notes 03/26/2024 Abdominal pain (ICD-10 - R10.9) 03/26/2024 [...] start Miralax and MG citrated when home 10/25/2024 Rheumatoid arthritis involving multiple sites, unspecified whether rheumatoid factor present (ICD-10 - M06.9) 12/26/2024 Fatigue, unspecified type (ICD-10 - R53.83) 10/03/2024 Thyroid nodule (ICD-10 - E04.1) 10/03/2024 Vitamin D deficiency (ICD-10 - E55.9) 12/26/2024 Palpitations (ICD-10 - R00.2) 10/25/2024 BMI 29.0-29.9,adult (ICD-10 - Z68.29) 12/26/2024 Vitamin D deficiency (ICD-10 - E55.9) 10/03/2024 Rheumatoid arthritis involving multiple sites, unspecified whether rheumatoid factor present (ICD-10 - M06.9) 12/26/2024 Body aches (ICD-10 - R52) Plan Of Treatment Pending Test Test Name Order Date ultrasound : thyroid 03/19/2025 P-ROSARIO 03/21/2024 P-ROSARIO 10/03/2024 P-Influenza A/B, Covid 19, RSV 3 Insurance Providers Payer Name Payer Address Payer Phone Subscriber Number Group Number Insured Name Patient Relationship to Insured Coverage Start Date Coverage End Date [employer] [facility] [address] [place], [place] [phone] [id number] TAMMY RAUSCH Self - patient is the insured Medications Administered Medication Instructions Date of Administration Dosage Notes Dexamethasone 07/16/2021 1 mL ondansetron 01/13/2023 2 mL Medical (General) History Medical History History ICD Code Hypertension Hyperlipidemia Allergic Rhinitis Depression Endometriosis Migraines RA Factor Positive 2017 Rheumatoid Arthritis Anxiety Surgical History Surgery Date(Month/Year) Cholecystectomy 2004 D & C 2003,2005 Filshie Clips Tubal Ligation 05/21/2012 Endometrial Ablation 12/2012 Colonoscopy 2014 Hysterectomy- [facility] 11/30/2014 Laperoscopy 11/19/2019 Colonoscopy, 1 Polyp Removed, Repeat 3 Y ears 02/22/2023 Thyroid Nodule Biopsy 10/22/2024 Hospitalization History Reason Date(Month/Year) [facility] Abdominal Pain, [facility]om[facility]- [facility] 12/29-07/2022 Abdominal Pain, [facility]- [facility] 023 Abdominal Pain, Vomiting- [facility] 023 Elevated BP- [facility] 07/15/2021 Aura Migraine- [facility] 03/13/2020 Abdominal Pain, Constipation- [facility] 12/17- Migraine- [facility] 06/20/2018 Migraine, Lumbar Puncture- [facility] 04/04-2017
--- OUTSIDE RECORDS SUMMARY | 2025-03-25 13:37 | XMS_ITS | Clinical Summary ---
Author Organization Healthcare Address [address] [place] [address] Care Team Providers Care Cattle Sorter Name Role Phone Pcp, No Primary Care [...] Active Problems Problem Noted Date Diagnosed Date Acute vaginitis 10/14/2021 Assessment & Plan (10/14/2021 12:32 PM EDT): - flagyl Rx sent for BV Ankylosing spondylitis 09/16/2021 Migraines 09/16/2021 Decreased libido 09/23/2020 Hot flashes 09/23/2020 Resolved Problems Problem Noted Date Diagnosed Date Resolved Date Pelvic and perineal pain 10/14/2021 Assessment & Plan (10/14/2021 12:32 PM EDT): - s/p hysterectomy. Per op note in [facility], she has both ovaries. Op report did not mention concern of denses adhesions of endometriosis. - normal ultrasound of ovaries today. - discussed pelvic floor physical therapy - she declines at this time - RTC as needed Immunizations Immunization Administration Dates Next Due Hep [...] 3 - 19+ 3-dose series) 03/25/2016 02/26/2016 [id number] Vaccine (2 - season) 2025 05/10/2021 UKY-Influenza Vaccine (#1) 03/03/202503/23, 06/16/2014, 04/14/2010 [...] patient's age to complete this topic [facility] Care Teams Cattle Sorter Relationship Specialty Start Date End Date Pcp, [place] [address] PCP - General Family Medicine 10/14/21
== END 2025-03-25 23:59 | disposition home or self-care (01) ==
LOC: RAD 13:34
PROVIDERS: PCP Physician Assistant; Visit Provider Physician Assistant
DX: E04.1 Nontoxic single thyroid nodule (principal)
CPT/HCPCS: 76536

== ENCOUNTER 2025-04-08 15:21 | Outpatient (CLI) | payer OTHER, SELFPAY ==
--- OUTSIDE RECORDS SUMMARY | 2024-05-22 11:42 | XMS_ITS | Encounter Summary ---
Author Organization [facility] Address [address] [place] [address] Care Team Providers Care Log Skidder Name Role Phone Sally Cordova Primary Care Provider [phone] Reason for Visit * Diagnostic Imaging (Routine) - Closed Specialty Diagnoses / Procedures Referred By Franchesca rcaig Referred To Contact Radiology Diagnoses Abnormal thyroid ultrasound Thyroid antibody positive Procedures US Thyroid Gosia Carpio MD [address] [place] [phone] Phone: tel: fax: Referral ID Status Reason Start Date Expiration Date Visits Re quested Visits Authorized [id number] Closed 05/22/2024 05/22/2025 1 1 Encounter Details Date Type Department Care Team (Late st Contact Info) Description 05/22/2024 10:42 AM EST Hospital Encounter [facility] ENDOCRINOLOGY [address] [place] [address] [phone] 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 Tobacco Use Types Packs/Day Years [...] physician's note for result. Gosia Carpio MD [facility] US ORDERABLES Final Result documented in this encounter Visit Diagnoses Not on filedocumented in this encounter Care Teams Log Skidder Relationship Specialty Start Date End Date Sally Cordova PA [address] [place] [facility] [address] [facility] [address] [place] [address] PCP - General Physician Fire Protection Designer 10/17/23 documented as of this encounter
--- OUTSIDE RECORDS SUMMARY | 2024-12-26 12:45 | XMS_ITS ---
Author Organization [facility] Address [address] [facility] [address] [place], [place] [id number] Care Team Providers Care Composite Technician Name Role Phone Sally Cordova Primary Care Provider [phone] Allergies Allergen (clinical drug ingredient) Drug/Non Drug [...] Interpretation:Normal Performing Lab: Notes/Report: Test performed by [facility] [address] , [address], [place] [address] Ramirez Thomason MD, Wedding Makeup Artist CLIA: [id number] B burgdorferi (Lyme Disease) IgG Negative Negative B burgdorferi (Lyme Disease) IgM Negative Negative P-Comprehensive Metabolic Pa rickie (CMP) Reviewed date:12/31/2024 08:23:56 AM Interpretation:Normal Performing Lab: Notes/Report: Test performed by [facility] [address] [place] [address] , [address], [place] [address] Ramirez Thomason MD, Wedding Makeup Artist CLIA: [id number] Sodium 138 135-145 mmol/L Potassium 4.0 3.5-5.3 [...] 0.7 <0.2-1.2 mg/dL A/G Ratio 1.5 1.1-2.5 U-V-Uvfyxkpx Protein (CRP), High Sensitivity Reviewed date:12/31/2024 08:23:56 AM Interpretation:Normal Performing Lab: Notes/Report: Test performed by [facility] [address] [place] [address] , [address], [place] [id number] Ramirez Thomason MD, Wedding Makeup Artist CLIA: [id number] C-Reactive Protein (CRP), High Sensitivity 0.70 <3.01 [...] Interpretation:Normal Performing Lab: Notes/Report: Test performed by [facility], [address] , [address], [place] [address] Ramirez Thomason MD, Wedding Makeup Artist CLIA: [id number] AND Test performed by [facility] [address] [place] [address] Celia Lemus MD, Wedding Makeup Artist B. burgdorferi Antibody IgG Immunoblot Negative Negative [...] developed and its performance characteristics determined by [facility]. It has not been cleared or approved by the US Food and Drug Administration. This test was performed in a CLIA certified laboratory and is intended for clinical purposes. Performed By: [facility] [address] [place], [place] [id number] Wedding Makeup Artist: Ramón Prakash MD, PhD CLIA Number: [id number] A. phagocytophilum Ab IgG <1:80 <1:80 INTERPRETIVE INFORMATION: A. phagocytophilum (HGA) Antibody, IgG Less than 1:80 - No significant level of IgG antibodies to A. phagocytophilum detected. Greater than or equal to 1:80 - Suggestive of a recent or past infection with A. phagocytophilum. This test was developed and its performance characteristics determined by [facility]. It has not been cleared or approved by the US Food and Drug Administration. This test was performed in a CLIA certified laboratory and is intended for clinical purposes. P-Sed Rate (ESR) Reviewed date:12/31/2024 08:23:56 AM Interpretation:Normal Performing Lab: Notes/Report: Test performed by [facility] [address] [place] [address] [place] [address] Ramirez Thomason MD, Wedding Makeup Artist CLIA: [id number] Erythrocyte Sedimentation Rate (ESR), Automated 9 <26 mm/hr P-T4 Free (thyroxine) Reviewed date:12/31/2024 08:23:56 AM Interpretation:Normal Performing Lab: Notes/Report: Test performed by [facility] [address] [place] [address] [place] [address] Ramirez Thomason MD, Wedding Makeup Artist CLIA: [id number] Thyroxine Free (free T4) 1.12 0.86-1.76 ng/dL P-TSH Reviewed date:12/31/2024 08:23:56 AM Interpretation:Normal Performing Lab: Notes/Report: Test performed by [facility] [address] [place] [address] [place] [address] Ramirez Thomason MD, Wedding Makeup Artist CLIA: [id number] TSH 1.53 0.43-5.25 mU/L P-Vitamin D 25-Hydroxy Reviewed date:12/31/2024 08:23:56 AM Interpretation:25.4 Performing Lab: Notes/Report: Test performed by [facility] [address] [place] [address] [place] [address] Ramirez Thomason MD, Wedding Makeup Artist CLIA: [id number] Vitamin D 25-Hydroxy 25.4 30.0-100.0 ng/mL Interpretation [...] days Active Vitamin D (Ergocalciferol) 1.25 MG (28164 UT) 1 capsule Orally once a week; Duration: 30 days Active Trulance 3 MG 1 tablet Orally Once a day; Duration: 90 days 12/28/2023 Active Vital Signs Weight 188 lbs 12/26/2024 Height 67 in 12/26/2024 BMI 29.44 kg/m2 12/26/2024 Encounters Encounter Location Date Provider Diagnosis [facility] [address] [facility] [address] [place], [place] [id number] 12/26/2024 Sally Cordova Rheumatoid arthritis involving multiple [...] * CHIKA MURODOB:1985 ([age] yo F)Acc No.[id number]:12/26/2024 Progress Notes Patient: CHIKA KRISHNAMURTHY Provider: MATT Sanchez :1985 A ge:39 Y S ex:Female Date:12/26/2024 Address:[address] [place] [address] Subjective: * Chief Complaints: * 1 . [...] Ablation 12/2012, Colonoscopy 2014, Hysterectomy- Dr. Perea, [facility] 11/30/2014, Laperoscopy 11/19/2019, Colonoscopy, 1 Polyp Removed, Repeat 3 Years 02/22/2023, Thyroid Nodule Biopsy 10/22/2024. * Hospitalization/Major Diagno stic Procedure: M igraine, Lumbar Puncture- [facility] 04/04-10/2017, Migraine- [facility] 06/20/2018, Abdominal Pain, Constipation- [facility] 12/17-, Aura Migraine- [facility] 03/13/2020, Elevated BP- [facility] 07/15/2021, Abdominal Pain, Vomiting- [facility] 12/26/2022, Abdominal Pain, Vomiting- [facility] 12/28/2022, Abdominal Pain, Vomiting- [facility] 12/29-12/31/2022, Abdominal Pain, Vomiting- [facility] 02/05-05/2023. * Family History: F ather: [...] , Taking Vitamin D (Ergocalciferol) 1.25 MG (04674 UT) Capsule 1 capsule Orally once a [...] 12/30/2024 1 1:24:52 PM EDT >sent to [facility] 12/31/2024 08:23:44 AM EDT > Noted ?LAB: P-Sed Rate (ESR) (Collection Date & Time - 12/26/2024 12:03 PM)?Normal * Value Reference Range E rythrocyte Sedimentation Rate (ESR), Automated 9 <26 - mm/hr * Sally Cordova Dione 12/30/2024 1 1:24:52 PM EDT >sent to [facility] 12/31/2024 08:23:44 AM EDT > Noted 2.?Thyroid nodule?LAB: P-T4 Free (thyroxine) (Collection Date & Time - 12/26/2024 12:03 PM)? Normal* Value Reference Range T hyroxine Free (free T4) 1.12 0.86-1.76 - ng/d L * Sally Cordova Dione 12/30/2024 1 1:24:52 PM EDT >sent to [facility] 12/31/2024 08:23:44 AM EDT > Noted ?LAB: P-TSH (Collection Date & Time - 12/26/2024 12:03 PM)?Normal* Value Reference Range T SH 1.53 0.43-5.25 - mU/L * Sally Cordova Dione 12/30/2024 1 1:24:52 PM EDT >sent to [facility] 12/31/2024 08:23:44 AM EDT > Noted 3.?Fatigue, unspecified type?LAB: P-Lyme Disease (B. burgodorferi), IgG/IgM, BIN, Serum (Collection Date & Time - 12/26/2024 12:03 PM)?Normal* Value Reference Range B burgdorferi (Lyme Disease) IgG Negative Negative - * B burgdorferi (Lyme Disease) IgM Negative Negative - * Sally Cordova 12/30/2024 1 1:24:52 PM EDT >sent to [facility] 12/31/2024 08:23:44 AM EDT > Noted ?LAB: P-T4 Free (thyroxine) (Collection Date & Time - 12/26/2024 12:03 PM)? Normal* Value Reference Range T hyroxine Free (free T4) 1.12 0.86-1.76 - ng/d L * Sally Cordova 12/30/2024 1 1:24:52 PM EDT >sent to [facility] 12/31/2024 08:23:44 AM EDT > Noted ?LAB: P-TSH (Collection Date & Time - 12/26/2024 12:03 PM)?Normal* Value Reference Range T SH 1.53 0.43-5.25 - mU/L * Sally Cordova 12/30/2024 1 1:24:52 PM EDT >sent to [facility] 12/31/2024 08:23:44 AM EDT > Noted ?LAB: Influenza Screen (in house) (Collection Date & Time - 12/26/2024)* Value Reference Range r esults Neg * [facility] 12/26/2024 11:12: 44 AM EDT > Provider [...] Reference Range R esult: Neg * Bhaskar Cihka 12/26/2024 11:13: 06 AM EDT > Provider [...] B M Interpretation See Below - * [facility], support 12/30/2024 05:45:07 : This order was created by the Interface. Shmuel Cordovaselina Parham 12/30/2024 11:24:52 PM EDT >sent to [facility] 12/31/2024 08:23:44 AM EDT > Noted * Procedure Codes: 8 5025 CBC WITH AUTO DIFF, 31181 VENIPUNCT, ROUTINE*, 51220 Flu Test- Nasal Swab, Modifiers: QW , 52100 COVID TEST IN HOUSE, Modifiers: QW * Follow Up: v ia phone to report test results * Images: Billing Information: * Visit Code: 12484 Office Visit, Est Pt., Level 4. * Procedure Codes: 45603 CBC WITH AUTO DIFF. 23000 VENIPUNCT, ROUTINE*. 74000 Flu Test- Nasal Swab. Modifiers: QW 99796 COVID TEST IN HOUSE. Modifiers: QW * Electronic signature of MATT Gutierrez on 04/08/2025 at 03:25 PM EDT Sign off status: Pending * Provider: MATT Sanchez Date: 0 12/26/2024 Generated for Odin schneider/Antoni/Stacia on: 1 03:25 PM EDT History and Physical Notes * [...]
--- OUTSIDE RECORDS SUMMARY | 2025-02-07 11:30 | XMS_ITS ---
Author Organization [facility] Address [address] [facility] [address] [phone] Care Team Providers Care Nutrition Instructor Name Role Phone Sally Cordova Primary Care [...] days Active Vitamin D (Ergocalciferol) 1.25 MG (77520 UT) 1 capsule Orally once a week; [...] Provider Diagnosis [facility] [address] [facility] [address] [place] [phone] 02/07/2025 Sally Cordova Plan Of Treatment No Information Progress Notes * TAMMY RAUSCHDOB:1985 ([age] yo F)Acc No.[id number]:02/07/2025 Progress Notes Patient: TAMMY KRISHNAMURTHY Provider: [place] Sanchez :1985 A ge:39 Y S ex:Female Date:02/07/2025 Address:[address] [place] [address] Subjective: * Chief Complaints: * 1 . [...] Hysterectomy- Dr. Perea, [facility] 11/30/2014, Laperoscopy 11/19/2019, Colonoscopy, 1 Polyp Removed, Repeat 3 Years 02/22/2023, Thyroid Nodule Biopsy 10/22/2024. * Hospitalization/Major Diagno stic Procedure: M igraine, Lumbar Puncture- [facility] 04/04-10/2017, Migraine- [facility] 06/20/2018, Abdominal Pain, Constipation- [facility] 12/17-, Aura Migraine- [facility] 03/13/2020, Elevated BP- [facility] 07/15/2021, Abdominal Pain, Vomiting- [facility] 12/26/2022, Abdominal Pain, Vomiting- [facility] 12/28/2022, Abdominal Pain, Vomiting- [facility] 12/29-12/31/2022, Abdominal Pain, Vomiting- [facility] 02/05-05/2023. * Family History: F ather: [...] , Taking Vitamin D (Ergocalciferol) 1.25 MG (06353 UT) Capsule 1 capsule Orally once a [...] 02/07/2025 Generated for Odin schneider/Antoni/Stacia on: 1 03:25 [...]
--- OUTSIDE RECORDS SUMMARY | 2025-02-17 07:15 | XMS_ITS ---
Author Organization [facility] Address 1210 [facility] [address] [id number] Care Team Providers Care Inventory Associate And Driver Name Role Phone Sally Cordova Primary Care Provider [phone] Maggy Quiroz Unavailable [phone] Allergies Allergen (clinical drug ingredient) Drug/Non Drug [...] days Active Vitamin D (Ergocalciferol) 1.25 MG (47333 UT) 1 capsule Orally once a week; [...] W/U Status Risk Notes Problem Acute constipation (535725466) Acute constipation (K59.00) Active confirmed Vital Signs Weight 179 lbs 02/17/2025 Blood pressure systolic 130 mm Hg 02/18/20 25 Blood pressure diastolic 76 mm Hg 025 Heart Rate 104 /min 02/17/2025 Height 67 in 02/17/2025 BMI 28.03 kg/m2 02/17/2025 Encounters Encounter Location Date Provider Diagnosis [facility] [address] [place], [place] [phone] 02/17/2025 Maggy Quiroz Abdominal pain R10.9 and [...] * TAMMY RAUSCHDOB:1985 ([age] yo F)Acc No.[id number]:02/17/2025 Progress Notes Patient: TAMMY KRISHNAMURTHY Provider: RAJESH Roldan :1985 A ge:39 Y S ex:Female Date:02/17/2025 Address:[address] [place] [address] Pcp:Sally Cordova Subjective: * Chief Complaints: * [...] Ablation 12/2012, Colonoscopy 2014, Hysterectomy- Dr. Perea, [facility] 11/30/2014, Laperoscopy 11/19/2019, Colonoscopy, 1 Polyp Removed, Repeat 3 Years 02/22/2023, Thyroid Nodule Biopsy 10/22/2024. * Hospitalization/Major Diagno stic Procedure: M igraine, Lumbar Puncture- [facility] 04/04-10/2017, Migraine- [facility] 06/20/2018, Abdominal Pain, Constipation- [facility] 12/17-, Aura Migraine- [facility] 03/13/2020, Elevated BP- [facility] 07/15/2021, Abdominal Pain, Vomiting- [facility] 12/26/2022, Abdominal Pain, Vomiting- [facility] 12/28/2022, Abdominal Pain, Vomiting- [facility] 12/29-12/31/2022, Abdominal Pain, [facility]- [facility] [...] , Taking Vitamin D (Ergocalciferol) 1.25 MG (27048 UT) Capsule 1 capsule Orally once a [...] neg * G paramjit neg * Mahogany Courntey 02/17/2025 09:5 1:11 AM EDT > Provider [...] Procedure Codes: 3 6416 CAPILLARY BLOOD DRAW, 20996 CBC WITH AUTO DIFF, 72487 Urinalysis, no micro, 1036F TOBACCO NON-USER, 3075F SYST BP GE 130 - 139MM HG, 3078F DIAST BP < 80 MM HG * Follow Up: p rn * Images: Billing Information: * Visit Code: 89462 Office Visit, Est Pt., Level 3. * Procedure Codes: 49172 CAPILLARY BLOOD DRAW. 89654 CBC WITH AUTO DIFF. 89490 Urinalysis, no micro. 1036F TOBACCO NON-USER. 3075F SYST BP GE 130 - 139MM HG. 3078F DIAST BP < 80 MM HG. * Electronic signature of Deisy Quiroz APRN on 04/08/2025 at 03:25 PM EDT Sign off status: Pending * Provider: RAJESH Roldan Date: 0 02/17/2025 Generated for Odin schneider/Antoni/Stacia on: 1 03:25 [...]
--- OUTSIDE RECORDS SUMMARY | 2025-03-27 09:30 | XMS_ITS ---
Author Organization [facility] Address [address] [facility] [address] [phone] Care Team Providers Care Construction Grip Name Role Phone Sally Cordova Primary Care Provider [phone] Allergies Allergen (clinical drug ingredient) Drug/Non Drug [...] 7 Active Vitamin D (Ergocalciferol) 1.25 MG (85395 UT) 1 capsule Orally once a week; [...] 03/27/2025 Encounters Encounter Location Date Provider Diagnosis [facility] [address] [facility] 36 [facility] [address] [place] [phone] 03/27/2025 Sally Cordova Muscle spasm of back [...] * TAMMY RAUSCHDOB:1985 ([age] yo F)Acc No.[id number]:03/27/2025 Progress Notes Patient: TAMMY KRISHNAMURTHY Provider: MATT Sanchez :1985 A ge:39 Y S ex:Female Date:03/27/2025 Address:[address] [place] [address] Subjective: * Chief Complaints: * 1 . [...] Ablation 12/2012, Colonoscopy 2014, Hysterectomy- Dr. Perea, [facility] 11/30/2014, Laperoscopy 11/19/2019, Colonoscopy, 1 Polyp Removed, Repeat 3 Years 02/22/2023, Thyroid Nodule Biopsy 10/22/2024. * Hospitalization/Major Diagno stic Procedure: M igraine, Lumbar Puncture- [facility] 04/04-10/2017, Migraine- [facility] 06/20/2018, Abdominal Pain, Constipation- [facility] 12/17-, Aura Migraine- [facility] 03/13/2020, Elevated BP- [facility] 07/15/2021, Abdominal Pain, Vomiting- [facility] 12/26/2022, Abdominal Pain, Vomiting- [facility] 12/28/2022, Abdominal Pain, Vomiting- [facility] 12/29-12/31/2022, Abdominal Pain, [facility]omiting- [facility] [...] , Taking Vitamin D (Ergocalciferol) 1.25 MG (29544 UT) Capsule 1 capsule Orally once a [...] * Images: Billing Information: * Visit Code: 12900 Office Visit, Est Pt., Level 3. * Procedure Codes: 31782 Urinalysis, no micro. * Electronic signature of MATT Gutierrez on 04/08/2025 at 03:25 PM EDT Sign off status: Pending * Provider: MATT Sanchez Date: 0 03/27/2025 Generated for Odin schneider/Antoni/Stacia on: 1 03:25 [...]
--- OUTSIDE RECORDS SUMMARY | 2025-04-08 15:25 | XMS_ITS | Referral Summary ---
Author Organization [employer] ([place], [place], [place], [place]) Address [address] [place] [address] Care Team Providers Care Safety Investigator Name Role Phone Narinder Dior MD Primary Care Provider + [phone] Allergies Active Allergy Reactions Criticality Noted Date [...] tablet (25 mg total) by mouth daily. 04/11/20 23 Active tiZANidine (ZANAFLEX) 2 MG tablet [...] Date Tremaine rded Speak language other than Slovenian at home Not on file 07/19/2023 Want [...] Plan of Treatment Not on file Insurance [facility] Care Teams Safety Investigator Relationship Specialty Start Date End Date Narinder Dior MD [address] [facility] [address] [place] [id number] PCP - General Family Medicine 08/02/22
--- OUTSIDE RECORDS SUMMARY | 2025-04-08 15:25 | XMS_ITS | Clinical Summary ---
Author Organization [facility] Address [address] [place] [address] Care Team Providers Care Accredited Farm Manager Name Role Phone Sally Cordova Primary Care Provider [phone] Allergies Active Allergy Reactions Criticality Noted Date [...] capsule Active vitamin D (ERGOCALCIFEROL) 1.25 MG (93402 UT) capsule capsule Take 1 capsule by [...] to Titer; Future XR Chest 2 View adjunct faculty for medical terminology (current) use of n on-steroidal anti-inflammatories (nsaid) 06/03/2024 Assessment & Plan (06/03/2024 1:45 PM EST): Failed indomethacin and meloxicam Risks of nonsteroidal anti-inflammatory drugs discussed including GI upset, GI bleeding, renal and hepatic risk, and the risks of cardiovascular disease. Warned not to take with other NSAIDs including [id number] NSAIDs. Family History Medical History Relation Name [...] [facility]
[address] [place] [address], from Last 3 Months or Most Recently Relevant to Health Maintenance Insurance [facility] Care Teams Accredited Farm Manager Relationship Specialty Start Date End Date Sally Cordova PA [address] [place] [address] [address] PCP - General Physician Telesales Representative 10/17/23
--- OUTSIDE RECORDS SUMMARY | 2025-04-08 15:25 | XMS_ITS | Clinical Summary ---
Author Organization [employer] ([place], [place], [place], [place]) Address [address] [place] [address] Care Team Providers Care Supervisor Hand Workers Name Role Phone Narinder Dior MD Primary Care Provider + [phone] Allergies Active Allergy Reactions Criticality Noted Date [...] Date Tremaine rded Speak language other than Lithuanian at home Not on file 07/19/2023 Want [...] 2002 Lipid Panel 2004 Pap Smear 2005 Breast Cancer Screening 2024 Tobacco Cessation Counseling and Screening (12+) 12/25/2024 12/26/2023 COVID-19 VACCINE (2 - 2024-2 6 season) 2025 05/10/2021 Influenza Vaccine (#1) 2025 DTAP/TDAP/TD VACCINES (2 - T d or Tdap) 03/03/2026 03/03/2016 Pneumococcal Vaccine: 0-49 Years Aged Out No longer eligible based on patient's age to complete this topic Insurance [facility] Care Teams Supervisor Hand Workers Relationship Specialty Start Date End Date Narinder Dior MD [address] [facility] [address] [place] [id number] PCP - General Family Medicine 08/02/22
--- OUTSIDE RECORDS SUMMARY | 2025-04-08 15:26 | XMS_ITS | Patient Health Record ---
Author Organization [facility] Address [address] [facility] [address] [id number] Care Team Providers Care Voip Engineer Name Role Phone Sally Cordova Primary Care Provider [phone] Maggy Quiroz Unavailable [phone] Allergies Allergen (clinical drug ingredient) Drug/Non Drug Allergy documented on EMR Reaction Allergy Type Onset Date Status sulfamethoxazole / trimethoprim Bactrim hives Drug Allergy Active cefaclor Cefaclor hives Drug Allergy Active indomethacin Indomethacin dizziness Drug Allergy A ctive Results Component Value Reference Range Notes Urinalysis - Inhouse Reviewed date:07/05/2024 01:29:14 PM [...] date:10/17/2024 10:13:01 AM Interpretation: Performing Lab: Notes/Report: Urinalysis - Inhouse Reviewed date:10/03/2024 03:15:36 PM Interpretation: Performing Lab: Notes/Report: Color/Clarity yellow/cloudy Leuk Neg Nitrite Neg Urobili 3.2 Protein Neg pH 6.5 Blood Neg Sp. Gr. 1.020 Ketone Neg Bili Neg Gluc Neg P-CBC with Diff plus Absolut e Counts Reviewed date:10/10/2024 01:29:24 PM Interpretation: Performing Lab: Notes/Report: Test performed by [facility] [address] [place] [address] , [address], [place] [address] Ramirez Thomason MD, Director Critical Care CLIA: [id number] WBC 6.7 3.8-11.5 K/uL Red Blood Cell [...] Interpretation: Performing Lab: Notes/Report: Test performed by [facility] [employer] [address] [place] [address] , [address], [place] [address] Ramirez Thomason MD, Director Critical Care CLIA: [id number] CCP Antibodies <0.5 <0.5-3.0 U/mL P-Comprehensive Metabolic Pa rickie (CMP) Reviewed date:10/10/2024 01:29:24 PM Interpretation: Performing Lab: Notes/Report: Test performed by [facility] [employer] [address] [place] [address] , [address], [place] [address] Ramirez Thomason MD, Director Critical Care CLIA: [id number] Sodium 140 135-145 mmol/L Potassium 4.3 3.5-5.3 [...] 0.5 <0.2-1.2 mg/dL A/G Ratio 1.6 1.1-2.5 G-G-Awvmtjxl Protein (CRP) Reviewed date:10/10/2024 01:29:24 PM Interpretation: Performing Lab: Notes/Report: Test performed by [facility] [address] [place] [address] , [address], [place] [id number] Ramirez Thomason MD, Director Critical Care CLIA: [id number] C-Reactive Protein (CRP) 0.05 <0.50 mg/dL P-Sed Rate (ESR) Reviewed date:10/10/2024 01:29:24 PM Interpretation: Performing Lab: Notes/Report: Test performed by [facility] [employer] [address] [place] [address] , [address], [place] [address] Ramirez Thomason MD, Director Critical Care CLIA: [id number] Erythrocyte Sedimentation Rate (ESR), Automated 31 <26 mm/hr P-Rheumatoid Factor Reviewed date:10/10/2024 01:29:24 PM Interpretation: Performing Lab: Notes/Report: Test performed by [facility] [address] [place] [address] [address], [address], [place] [address] Ramirez Thomason MD, Director Critical Care CLIA: [id number] Rheumatoid Factor 10.0 <14.1 IU/mL P-T4 Free (thyroxine) Reviewed date:10/10/2024 01:29:24 PM Interpretation: Performing Lab: Notes/Report: Test performed by [facility] [address] [place] [address] [place] [address] Ramirez Thomason MD, Director Critical Care CLIA: [id number] Thyroxine Free (free T4) 1.00 0.86-1.76 ng/dL HLA-B27 Antigen Reviewed date:10/10/2024 01:29:24 PM Interpretation: Performing Lab: Notes/Report: HLA-B27 Negative Negative INTERPRETIVE INFORMATION: HLA-B27 HLA-B27 is a serologically defined allele of the human HLA-B locus. The presence of the HLA-B27 antigen is strongly associated with ankylosing spondylitis and related disorders. This test was developed and its performance characteristics determined by [facility]. It has not been cleared or approved by the [place] Food and Drug Administration. This test was performed in a CLIA certified laboratory and is intended for clinical purposes. Performed By: [facility] [address] [place] [address] Director Critical Care: Ramón Prakash MD, PhD CLIA Number: [id number] P-TSH Reviewed date:10/10/2024 01:29:24 PM Interpretation: Performing Lab: Notes/Report: Test performed by [facility] [address] [place] [address] [place] [address] Ramirez Thomason MD, Director Critical Care CLIA: [id number] TSH 1.84 0.43-5.25 mU/L P-Vitamin D 25-Hydroxy Reviewed date:10/10/2024 01:29:24 PM Interpretation: Performing Lab: Notes/Report: Test performed by [facility] [address] [place] [address] [address] Ramirez Thomason MD, Director Critical Care CLIA: [id number] Vitamin D 25-Hydroxy 16.0 30.0-100.0 ng/mL Interpretation [...] date:10/10/2024 01:29:24 PM Interpretation: Performing Lab: Notes/Report: Influenza Screen (in house) Reviewed date:12/26/2024 04:42:05 [...] Interpretation:Normal Performing Lab: Notes/Report: Test performed by [facility] [address] [place], [place] [address] , [address], [place] [id number] Ramirez Thomason MD, Director Critical Care CLIA: [id number] B burgdorferi (Lyme Disease) IgG Negative Negative B burgdorferi (Lyme Disease) IgM Negative Negative P-Comprehensive Metabolic Pa rickie (CMP) Reviewed date:12/31/2024 08:23:56 AM Interpretation:Normal Performing Lab: Notes/Report: Test performed by [facility] [address] [place], [place] [address] [place] , [address], [place] [address] Ramirez Thomason MD, Director Critical Care CLIA: [id number] Sodium 138 135-145 mmol/L Potassium 4.0 3.5-5.3 [...] 0.7 <0.2-1.2 mg/dL A/G Ratio 1.5 1.1-2.5 W-W-Dvnzxgbc Protein (CRP), High Sensitivity Reviewed date:12/31/2024 08:23:56 AM Interpretation:Normal Performing Lab: Notes/Report: Test performed by [facility] [address] [place], [place] [address] [place] , [address], [place] [address] Ramirez Thomason MD, Director Critical Care CLIA: [id number] C-Reactive Protein (CRP), High Sensitivity 0.70 <3.01 [...] Interpretation:Normal Performing Lab: Notes/Report: Test performed by [facility] [address] [place], [place] [address] [place] , [address], [place] [address] Ramirez Thomason MD, Director Critical Care CLIA: [id number] AND Test performed by [facility] [address] [place] [address] Celia Lemus MD, Director Critical Care B. burgdorferi Antibody IgG Immunoblot Negative Negative [...] developed and its performance characteristics determined by [facility]. It has not been cleared or approved by the US Food and Drug Administration. This test was performed in a CLIA certified laboratory and is intended for clinical purposes. Performed By: [facility] [address] [place] [address] Director Critical Care: Ramón Prakash MD, PhD CLIA Number: [id number] A. phagocytophilum Ab IgG <1:80 <1:80 INTERPRETIVE INFORMATION: A. phagocytophilum (HGA) Antibody, IgG Less than 1:80 - No significant level of IgG antibodies to A. phagocytophilum detected. Greater than or equal to 1:80 - Suggestive of a recent or past infection with A. phagocytophilum. This test was developed and its performance characteristics determined by [facility]. It has not been cleared or approved by the US Food and Drug Administration. This test was performed in a CLIA certified laboratory and is intended for clinical purposes. P-Sed Rate (ESR) Reviewed date:12/31/2024 08:23:56 AM Interpretation:Normal Performing Lab: Notes/Report: Test performed by [facility] [employer] [address] [place] [address] , [address], [place] [address] Ramirez Thomason MD, Director Critical Care CLIA: [id number] Erythrocyte Sedimentation Rate (ESR), Automated 9 <26 mm/hr P-T4 Free (thyroxine) Reviewed date:12/31/2024 08:23:56 AM Interpretation:Normal Performing Lab: Notes/Report: Test performed by [facility] [address] , [facility] [place] [address] Ramirez Thomason MD, Director Critical Care CLIA: [id number] Thyroxine Free (free T4) 1.12 0.86-1.76 ng/dL P-TSH Reviewed date:12/31/2024 08:23:56 AM Interpretation:Normal Performing Lab: Notes/Report: Test performed by [facility] [address] , [place] [address] Ramirez Thomason MD, Director Critical Care CLIA: [id number] TSH 1.53 0.43-5.25 mU/L P-Vitamin D 25-Hydroxy Reviewed date:12/31/2024 08:23:56 AM Interpretation:25.4 Performing Lab: Notes/Report: Test performed by [facility] [address] , [place] [id number] Ramirez Thomason MD, Director Critical Care CLIA: [id number] Vitamin D 25-Hydroxy 25.4 30.0-100.0 ng/mL Interpretation of Vitamin D 25 OH: < 20 ng/mL - Deficiency 20 - 29 ng/mL - Insufficiency 30 - 100 ng/mL - Sufficiency > 100 ng/mL - Super-therapeutic- toxicity may occur above this level. Clinical correlation required. Covid test (in house) Reviewed date:12/26/2024 04:42:15 PM Interpretation: Performing Lab: Notes/Report: Result: Neg Urinalysis - Inhouse Reviewed date:02/17/2025 03:52:29 PM [...] date:02/18/2025 02:32:08 PM Interpretation: Performing Lab: Notes/Report: Urinalysis - Inhouse Reviewed date:03/28/2025 05:53:48 PM Interpretation: Performing Lab: Notes/Report: Color/Clarity dark/clear Leuk neg Nitrite neg Urobili 33 Protein trace pH 5.5 Blood 1 Sp. Gr. 1.025 Ketone neg Bili 1+ Gluc neg P-TSH Reviewed date:11/01/2024 11:56:22 AM Interpretation:Normal Performing Lab: Notes/Report: Test performed by [facility] [address] [place] [address] , [address], [place] [address] Ramirez Thomason MD, Director Critical Care CLIA: [id number] TSH 1.94 0.43-5.25 mU/L P-Thyroid Antibody Panel (TA BS) Reviewed date:11/01/2024 11:56:22 AM Interpretation:Thyroglobulin antibody 234.0 Performing Lab: Notes/Report: Test performed by [facility] [address] [place] [address] [address], [place] [address] Ramirez Thomason MD, Director Critical Care CLIA: [id number] Thyroid Peroxidase Antibody 13 <9-34 IU/mL An [...] be directly compared. P-T4 Free (thyroxine) Reviewed date:11/01/2024 11:56:22 AM Interpretation:Normal Performing Lab: Notes/Report: Test performed by [facility] [employer] [address] [place] [address] , [address], [place] [address] Ramirez Thomason MD, Director Critical Care CLIA: [id number] Thyroxine Free (free T4) 1.09 0.86-1.76 ng/dL P-Sed Rate (ESR) Reviewed date:11/01/2024 11:56:22 AM Interpretation:Normal Performing Lab: Notes/Report: Test performed by [facility] [employer] [address] [place] [address] [place] [address] Ramirez Thomason MD, Director Critical Care CLIA: [id number] Erythrocyte Sedimentation Rate (ESR), Automated 5 <26 mm/hr Q-D-Vohaxozd Protein (CRP), High Sensitivity Reviewed date:11/01/2024 11:56:22 AM Interpretation:Normal Performing Lab: Notes/Report: Test performed by [facility] [employer] [address] [place] [address] [address], [place] [address] Ramirez Thomason MD, Director Critical Care CLIA: [id number] C-Reactive Protein (CRP), High Sensitivity 0.30 <3.01 [...] should be used to determine patient risk. Antinuclear Antibodies (ROSARIO) Screen Reviewed date:10/10/2024 01:29:24 PM Interpretation: Performing Lab: Notes/Report: Test performed by [facility] [address] [place], [place] [address] [place] [address] Ramirez Thomason MD, Director Critical Care CLIA: [id number] Antinuclear Antibodies (ROSARIO) Screen Positive Negative This test is perform ed by Multiplex Bead Immunoassay methodology. X ray : KUB Reviewed date:11/01/2024 01:33:36 PM Interpretation:No Significant Constipation Performing Lab: Notes/Report: No Significant Constipation P-Basic Metabolic Panel (BMP ) Reviewed date:05/10/2024 08:42:35 AM Interpretation: Performing Lab: Notes/Report: Test performed by [facility] [address] [place] [address] , [address], [place] [address] Ramirez Thomason MD, Director Critical Care CLIA: [id number] Sodium 140 135-145 mmol/L Potassium 3.9 3.5-5.3 mmol/L Chloride 105 97-108 mmol/L CO2 21 22-32 mmol/L Glucose 92 65-99 mg/dL BUN 13 6-20 mg/dL Creatinine 0.85 0.50-1.00 mg/dL Calcium 9.5 8.6-10.4 mg/dL eGFR by Creatinine 89 >59 mL/min/1.73m2 P-T4 Free (thyroxine) Reviewed date:05/10/2024 08:42:35 AM Interpretation: Performing Lab: Notes/Report: Test performed by [facility] [employer] [address] [place] [address] , [address], [place] [address] Ramirez Thomason MD, Director Critical Care CLIA: [id number] Thyroxine Free (free T4) 1.09 0.86-1.76 ng/dL P-Thyroid Antibody Panel (TA BS) Reviewed date:05/10/2024 08:42:35 AM Interpretation: Performing Lab: Notes/Report: Test performed by [facility] [address] [place] [address] , [address], [place] [address] Ramirez Thomason MD, Director Critical Care CLIA: [id number] Thyroid Peroxidase Antibody 17 <9-34 IU/mL An [...] Interpretation: Performing Lab: Notes/Report: Test performed by [facility] [address] [place] [address] , [address], [place] [address] Ramirez Thomason MD, Director Critical Care CLIA: [id number] TSH 2.34 0.43-5.25 mU/L ultrasound : thyroid Reviewed date:05/16/2024 10:25:23 AM Interpretation:right thyroid nodule, consider f/u in 6-12 months Performing Lab: Notes/Report: right thyroid nodule, consider f/u in 6-12 months Holter - 7 day Reviewed date:12/04/2024 03:41:37 PM Interpretation:PVC's and PAC's Performing Lab: Notes/Report: PVC's and PAC's TEN-Vaginal Infection panel Reviewed date:11/01/2024 11:56:22 AM Interpretation:Abnormal Performing Lab: Notes/Report: Abnormal Urinalysis - Inhouse Reviewed date:10/25/2024 04:50:35 PM Interpretation: Performing Lab: Notes/Report: Color/Clarity yellow/clear Leuk Neg Nitrite Neg Urobili 3.2 Protein Neg pH 5.0 Blood Neg Sp. Gr. 1.020 Ketone Neg Bili Neg Gluc Neg ultrasound : thyroid Reviewed date:03/28/2025 11:58:00 AM Interpretation:Stable, 6-12 Mth F/U Performing Lab: Notes/Report: Stable, 6-12 Mth F/U Reason For Referral Diagnosis 1 Rheumatoid arthritis involving multiple sites, unspecified whether rheumatoid factor present (M06.9) Referral Organization [facility] Referring Provider First Name Sally Referring Provider Last Name Tasha Referring Provider Speciality Physician Carton Filling Machine Operator Referred Provider Rheumatology, . Referred Provider Specialty Rheumatology General Notes Sally Cordova 05/09 2:03:24 PM > [facility] to go to [facility] RheumatologyIman Brynn 05/13/2024 11:59:53 AM > faxed to [facility] Scheduling Referral Priority Routine Reason patient needs to see endocrinology Diagnosis 1 Thyroid nodule (E04. 1) Referral Organization [facility] Referring Provider First Name Sally Referring Provider Last Name Tasha Referring Provider Speciality Physician Carton Filling Machine Operator Referred Provider Specialty Endocrinolog y General Notes Radha Valerio 024 1:18:17 PM > faxed to [facility] Endocrinology, Radha Valerio 05/20/2024 1:25:55 PM > appt 05/22/2024 at 10:00am Referral Priority Routine Diagnosis 1 Constipation, unspec ified constipation type (K59.00) Referral Organization [facility] Referring Provider First Name Sally Referring Provider Last Name Tasha Referring Provider Speciality Physician Carton Filling Machine Operator Referred Provider BRIDGETTE CASILLAS Referred Provider Specialty Gastroentero logy General Notes Radha Valerio 024 8:38:27 AM > faxed to [facility] Gastroenterology, Radha Valerio 06/17/2024 9:54:40 AM > spoke with Rudy; resent Iman main Brynn 06/19/2024 11:09:11 AM > confirmed order received with Rudy Referral Priority Routine Reason Thyroid enlargement Diagnosis 1 Thyromegaly (E04.9) Diagnosis 2 Enlarged thyroid (E0 4.9) Diagnosis 3 Thyroid nodule (E04. 1) [facility] Referring Provider First Name Sally Referring Provider Last Name Tasha Referring Provider Speciality Physician Carton Filling Machine Operator [facility] Referred Address [address] [facility] [address] [facility], [address],[place], [id number], Referred Provider Specialty ENT General Notes Radha Valerio 2024 01:17:24 PM > faxed to [facility] ENTIman Brynn 10/11/2024 08:51:34 AM > 10/15/2024 [...] 7 Active Vitamin D (Ergocalciferol) 1.25 MG (91820 UT) 1 capsule Orally once a week; Duration: 30 days Active DULoxetine HCl 60 mg 1 capsule orally on ce a day; Duration: 30 days Active Cyclobenzaprine HCl 10 MG 1 tablet Orall y 3 times a day, prn 03/29/2025 Active Meloxicam 7.5 MG 1 tablet/;p[ =========- Orally twice a day; Duration: 30 days 04/08/2025 Active Linzess 290 MCG 1 capsule at least 3 0 minutes before the first meal of the day on an empty stomach Orally Once a day; Duration: 30 days 02/18/2025 Active Humira (2 Pen) 40 MG/0.4ML INJECT 40 MG SUBCUTANEOUSLY EVERY 2 WEEKS; Duration: 28 Active Ondansetron 4 mg DISSOLVE ONE TABLET UNDER THE TONGUE THREE TIMES DAILY NEEDED; Duration: 10 Active Montelukast Sodium 10 mg 1 tablet Orally Once a day; Duration: 90 days Active Omeprazole 40 MG 1 capsule 30 minutes before morning meal Orally Once a day; Duration: 90 days Active Immunizations Vaccine Route Administration Date Status Comme nts COVID 19 Moderna Unknown 05/10/2021 Administered xFluzone (6mos and older)-trivalent Unknown 04/14/2010 Administered xFluzone (6mos and older)-trivalent Unknown 06/16/2014 Administered Problems Problem Type SNOMED Code ICD Code Onset Dates Problem Status W/U Status Risk Notes Problem Gastroesophageal reflux disease (121559583) GERD (gastroesophage al reflux disease) (K21.9) Active confirmed Problem Vitamin D deficiency (76432735) Vitamin D deficiency (E55.9) Active confirmed Problem Hypertension (44629956) Hypertension (I10) Active confirmed Problem Goiter (6048836) Enlarged thyroid (E04.9) Active confirmed Problem Mixed anxiety and depressive disorder (301865153) Depression with anxiety (F41.8) Active confirmed Problem Acute constipation (139423443) Acute constipation (K59.00) Active confirmed Problem Thyromegaly (2929469) Thyromegaly (E04.9) Active confirmed Problem Right bundle branch block (66453518) Right bundle branch block (I45.10) Active confirmed Problem Obesity (166333764) Obesity (BMI 30-39.9) (E66.9) Active confirmed Problem Thyroid nodule (984882366) Thyroid nodule (E04.1) Active confirmed Problem Constipation (51539882) Constipation, unspecified constipation type (K59.00) Active confirmed Problem Migraine (94945573) Migraine without status migrainosus, not intractable, unspecified migraine type (G43.909) Active confirmed Problem 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 Problem Fibrocystic breast changes (38161083) Fibrocystic changes of right breast (N60.11) Active confirmed Problem Acute back pain with sciatica (283611383) Acute back pain with sciatica (M54.40) Active confirmed Problem Obesity (930150480) Non morbid obesity (E66.9) Active confirmed Problem Hematuria syndrome (10772509) Hematuria, unspecified type (R31.9) Active confirmed Problem Seasonal allergic rhinitis (050512370) Seasonal allergic rhinitis, unspecified trigger (J30.2) Active confirmed Problem Rheumatoid arthritis (15779180) Rheumatoid arthritis involving multiple sites, unspecified whether rheumatoid factor present (M06.9) Active confirmed Vital Signs Heart Rate 100 /min 04/08/2025 Blood pressure diastolic 78 mm Hg 04/08/2025 Height 67 in 04/08/2025 Blood pressure systolic 120 mm Hg 04/08/2025 Weight 170 lbs 04/08/2025 BMI 26.62 kg/m2 04/08/2025 Encounters Encounter Location Date Provider Diagnosis [facility] [address] [facility] [address] [place] [id number] 05/09/2024 Sally Crowdy Thyroid nodule E04.1 and Rheumatoid arthritis involving multiple sites, unspecified whether rheumatoid factor present M06.9 [facility] [address] [facility] [address] [place] [id number] 07/05/2024 Sally Crowdy Acute vaginitis N76. 0 [facility] [address] [facility] [address] [place], [place] [id number] 08/20/2024 Maggy Quiroz Breast pain, right N64.4 and Fibrocystic changes of right breast N60.11 [facility] [address] [facility] [address] [place] [id number] 10/03/2024 Sally Crowdy Palpitations R00.2 ; Acute vaginitis N76.0 ; Thyroid nodule E04.1 ; Vitamin D deficiency E55.9 and Rheumatoid arthritis involving multiple sites, unspecified whether rheumatoid factor present M06.9 [facility] [address] [facility] [address] [place], [place] [id number] 10/25/2024 Sally Crowdy Thyroid nodule E04.1 ; Acute vaginitis N76.0 ; Rheumatoid arthritis involving multiple sites, unspecified whether rheumatoid factor present M06.9 and BMI 29.0-29.9,adult Z68.29 [facility] [address] [place], [place] [id number] 12/26/2024 Sally Crowdy Rheumatoid arthritis involving multiple sites, unspecified whether rheumatoid factor present M06.9 ; Thyroid nodule E04.1 ; Fatigue, unspecified type R53.83 ; Palpitations R00.2 ; Vitamin D deficiency E55.9 and Body aches R52 [facility] [address] [place], [place] [id number] 02/17/2025 Mgagy Quiroz Abdominal pain R10.9 and Acute constipation K59.00 [facility] [address] [place], [place] [id number] 03/27/2025 Sally Crowdy Muscle spasm of back M62.830 [facility] [address] [place], [place] [id number] 04/08/2025 Maggy Quiroz Acute back pain with sciatica M54.40 [facility] [address] [place], [place] [id number] 04/15/2024 Maggy Quiroz [facility] [address] [place], [place] [id number] 05/15/2024 Sally Crowdy [facility] [address] [place] [id number] 05/31/2024 Sally Crowdy [facility] [address] [place] [id number] 06/12/2024 Sally Crowdy Constipation, unspecified constipation type K59.00 [facility] [address] [place] [id number] 06/21/2024 Sally Crowdy [facility] [address] [place], [place] [id number] 07/10/2024 Sally Crowdy [facility] [address] [place] [id number] 07/29/2024 Sally Crowdy [facility] [address] [place] [id number] 08/02/2024 Sally Crowdy [facility] [address] [place] [id number] 08/20/2024 Sally Crowdy [facility] [address] [place] [id number] 08/29/2024 Sally Crowdy [facility] [address] [place] [id number] 09/11/2024 Sally Crowdy [facility] [address] [place] [id number] 09/28/2024 Sally Crowdy [facility] [address] [place] [id number] 10/04/2024 Sally Crowdy [facility] [address] [place] [id number] 10/09/2024 Sally Crowdy [facility] [address] [place] [id number] 10/10/2024 Sally Crowdy [facility] [address] [place] [id number] 10/24/2024 Sally Crowdy [facility] [address] [place] [id number] 10/30/2024 Sally Crowdy Constipation, unspecified constipation type K59.00 [facility] [address] [place] [id number] 11/01/2024 Sally Crowdy [facility] [address] [place] [id number] 12/16/2024 Sally Crowdy [facility] [address] [place] [id number] 01/15/2025 Sally Crowdy [facility] [address] [place] [id number] 02/07/2025 Sally Crowdy [facility] [address] [place] [id number] 02/18/2025 Maggy Quiroz [facility] [address] [place] [id number] 03/18/2025 Sally Cordova [facility] [address] [place] [id number] 03/29/2025 Sally Cordova [facility] [address] [place] [id number] 03/29/2025 Sally Cordova [facility] [address] [place] [id number] 03/31/2025 Sally Cordova Assessments Encounter Date Diagnosis (ICD Code) Assessment Notes Treatment Notes Treatment Clinical Notes Section Notes 05/09/2024 Thyroid nodule (ICD-10 - E04.1) 05/09/2024 [...] start Miralax and MG citrated when home 03/27/2025 Muscle spasm of back (ICD-10 - M62.830) Has tizanidine at home. 04/08/2025 Acute back pain with sciatica (ICD-10 - M54.40) no lifting/pushing /pulling; Ice/heat application prn; will do xrays; May need MRI 12/26/2024 Fatigue, unspecified type (ICD-10 - R53.83) 10/03/2024 Thyroid nodule (ICD-10 - E04.1) 10/25/2024 Rheumatoid arthritis involving multiple sites, unspecified whether rheumatoid factor present (ICD-10 - M06.9) 10/03/2024 Vitamin D deficiency (ICD-10 - E55.9) 12/26/2024 Palpitations (ICD-10 - R00.2) 10/25/2024 BMI 29.0-29.9,adult (ICD-10 - Z68.29) 12/26/2024 Vitamin D deficiency (ICD-10 - E55.9) 10/03/2024 Rheumatoid arthritis involving multiple sites, unspecified whether rheumatoid factor present (ICD-10 - M06.9) 12/26/2024 Body aches (ICD-10 - R52) Plan Of Treatment Pending Test Test Name Order Date X ray : Spine, lumbar 04/08/2025 X ray : Hip, right 04/08/2025 X ray : Spine, thoracic spine 04/08/2025 P-ROSARIO 03/21/2024 P-ROSARIO 10/03/2024 P-Influenza A/B, Covid 19, RSV 3 Insurance Providers Payer Name Payer Address Payer Phone Subscriber Number Group Number Insured Name Patient Relationship to Insured Coverage Start Date Coverage End Date [employer] [facility] [address] [place], [place] [phone] [id number] TAMMY RAUSCH Self - patient is the insured Medications Administered Medication Instructions Date of Administration Dosage Notes Depo- Medrol 40 mg/ml 04/08/2025 1 mL Dexamethasone 07/16/2021 1 mL ondansetron 01/13/2023 2 mL Medical (General) History Medical History History ICD Code Hypertension Hyperlipidemia Allergic Rhinitis Depression Endometriosis Migraines RA Factor Positive 2017 Rheumatoid Arthritis Anxiety Surgical History Surgery Date(Month/Year) Cholecystectomy 2004 D & C 2003,2005 [place] Clips Tubal Ligation 05/21/2012 Endometrial Ablation 12/2012 Colonoscopy 2014 Hysterectomy- Dr. Perea, [facility] 11/30/2014 Laperoscopy 11/19/2019 Colonoscopy, 1 Polyp Removed, Repeat 3 Y ears 02/22/2023 Thyroid Nodule Biopsy 10/22/2024 Hospitalization History Reason Date(Month/Year) Abdominal Pain, Vomiting- [facility], [place] 02/05-05/2023 Abdominal Pain, Vomiting- [facility] 12/29-07/2022 Abdominal Pain, Vomiting- [facility] ER 023 Abdominal Pain, Vomiting- [facility] ER 023 Elevated BP- [facility] ER 07/15/2021 Aura Migraine- [facility] 03/13/2020 Abdominal Pain, Constipation- [facility] 12/17- Migraine- [facility] ER 06/20/2018 Migraine, Lumbar Puncture- [facility] 04/04-2017
--- OUTSIDE RECORDS SUMMARY | 2025-04-08 15:26 | XMS_ITS | Clinical Summary ---
Author Organization Healthcare Address [address] [place] [address] Care Team Providers Care Note Teller Name Role Phone Pcp, No Primary Care [...] 3 - 19+ 3-dose series) 03/25/2016 02/26/2016 [id number] Vaccine (2 - season) 2025 05/10/2021 UKY-Influenza [...] age to complete this topic [facility] Care Teams Note Teller Relationship Specialty Start Date End Date Pcp, [place] [address] PCP - General Family Medicine 10/14/21
--- NOTE | 2025-04-08 15:51 | XR_ITS ---
FINAL REPORT TECHNIQUE: 2 views CLINICAL HISTORY: . FINDINGS: THORACIC SPINE AP and lateral views were obtained. There is no fracture present. There is no malalignment. There are mild multilevel degenerative changes. IMPRESSION: Degenerative change without acute bony abnormality. LUMBAR SPINE 5 views of the lumbar spine were obtained. There is no acute fracture or subluxation. There is multilevel degenerative disc disease greatest at the lumbosacral junction. Soft tissues are unremarkable. IMPRESSION: Degenerative change without acute bony abnormality. Reviewed, Interpreted and Dictated by Alondra Smith MD Transcribed by Shalini Romero Authenticated and . [facility]
--- NOTE | 2025-04-08 15:51 | XR_ITS ---
FINAL REPORT CLINICAL HISTORY: ACUTE BACK PAIN WITH SCIATICA FINDINGS: An AP view of the pelvis and a frog leg view of the right hip were obtained. There is no acute fracture or dislocation. Joint space is preserved. Remaining osseous pelvis is without acute abnormality. Soft tissues are unremarkable. IMPRESSION: No acute osseous abnormality of the right hip. Reviewed, Interpreted and Dictated by Alondra Smith MD Transcribed by Shalini Romero Authenticated and [facility]
== END 2025-04-08 23:59 | disposition home or self-care (01) ==
LOC: RAD 15:23
PROVIDERS: PCP Nurse Practitioner Family; Visit Provider Nurse Practitioner Family
DX: M47.24 Other spondylosis with radiculopathy, thoracic region (principal); M47.26 Other spondylosis with radiculopathy, lumbar region
CPT/HCPCS: 72084; 73502

== ENCOUNTER 2025-04-15 07:25 | Inpatient (IN) | payer OTHER, SELFPAY ==
--- OUTSIDE RECORDS SUMMARY | 2024-05-22 11:42 | XMS_ITS | Encounter Summary ---
Author Organization [facility] Address [address] [place] [address] Care Team Providers Care Pipeliner Name Role Phone Sally Cordova Primary Care Provider [phone] Reason for Visit * Diagnostic Imaging (Routine) - Closed Specialty Diagnoses / Procedures Referred By Franchesca craig Referred To Contact Radiology Diagnoses Abnormal thyroid ultrasound Thyroid antibody positive Procedures US Thyroid Gosia Carpio MD [address] [place] [phone] Phone: tel: fax: Referral ID Status Reason Start Date Expiration Date Visits Re quested Visits Authorized [id number] Closed 05/22/2024 05/22/2025 1 1 Encounter Details Date Type Department Care Team (Late st Contact Info) Description 05/22/2024 10:42 AM EST Hospital Encounter [facility] [address] [place] [address] [phone] 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 Tobacco Use Types Packs/Day Years [...] physician's note for result. Gosia Carpio MD [facility] US ORDERABLES Final Result documented in this encounter Visit Diagnoses Not on filedocumented in this encounter Care Teams Pipeliner Relationship Specialty Start Date End Date Sally Cordova PA [address] [place] [facility] [address] [facility] [address] [place] [phone] PCP - General Physician Returning Officer 10/17/23 documented as of this encounter
--- OUTSIDE RECORDS SUMMARY | 2024-05-22 11:42 | XMS_ITS | Encounter Summary ---
Author Organization [facility] Address [address] [place] [address] Care Team Providers Care Wood Tank Erector Name Role Phone Sally Cordova Primary Care Provider [phone] Reason for Visit * Diagnostic Imaging (Routine) - Closed Specialty Diagnoses / Procedures Referred By Franchesca craig Referred To Contact Radiology Diagnoses Abnormal thyroid ultrasound Thyroid antibody positive Procedures US Thyroid Gosia Carpio MD [address] [place] [address] Phone: tel: fax: Referral ID Status Reason Start Date Expiration Date Visits Re quested Visits Authorized [id number] Closed 05/22/2024 05/22/2025 1 1 Encounter Details Date Type Department Care Team (Late st Contact Info) Description 05/22/2024 10:42 AM EST Hospital Encounter [facility] ENDOCR[facility] [address] [place] [phone] 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 Tobacco Use Types Packs/Day Years [...] physician's note for result. Gosia Carpio MD [facility] US ORDERABLES Final Result documented in this encounter Visit Diagnoses Not on filedocumented in this encounter Care Teams Wood Tank Erector Relationship Specialty Start Date End Date Sally Cordova PA [address] [place] [facility] [address] [facility] [address] [place] [address] PCP - General Physician Sonar Watchstander 10/17/23 documented as of this encounter
--- OUTSIDE RECORDS SUMMARY | 2024-12-26 12:45 | XMS_ITS ---
Author Organization [facility] Address [address] [facility] [facility] [address] [facility] [address] [place], [place] [id number] Care Team Providers Care Coating Mixer Supervisor Name Role Phone Sally Cordova Primary Care Provider [phone] Allergies Allergen (clinical drug ingredient) Drug/Non Drug Allergy documented on EMR Reaction Allergy Type Onset Date Status sulfamethoxazole / trimethoprim Bactrim hives Drug Allergy Active cefaclor Cefaclor hives Drug Allergy Active indomethacin Indomethacin dizziness Drug Allergy A ctive Results Component Value Reference Range Notes Influenza Screen (in house) Reviewed date:12/26/2024 04:42:05 PM Interpretation: Performing Lab: Notes/Report: results Neg CBC Venipuncture (in house) Reviewed date:12/26/2024 03:21:32 PM Interpretation: Performing Lab: Notes/Report: wbc 5.4 3.5 - 10 lymph 28.4% 15 - 50 mid 6.7% 2 - 15 gran 64.9% 35 - 80 rbc 4.68 3.5 - 5.5 hgb 13.5 11.5 - 16.5 hct 40.9 35 - 55 mcv 87.4 75 - 100 mch 28.9 25 - 35 mchc 33.0 31 - 38 platlet 291 100 - 400 P-Lyme Disease (B. kassierf lopez), IgG/IgM, BIN, Serum Reviewed date:12/31/2024 08:23:56 AM Interpretation:Normal Performing Lab: Notes/Report: Test performed by [facility] [address] [facility] , [address], [place] [address] Ramirez Thomason MD, Band Sawmill Operator CLIA: [id number] B burgdorferi (Lyme Disease) IgG Negative Negative B burgdorferi (Lyme Disease) IgM Negative Negative P-Comprehensive Metabolic Pa rickie (CMP) Reviewed date:12/31/2024 08:23:56 AM Interpretation:Normal Performing Lab: Notes/Report: Test performed by [facility] [address] [place] [address] , [address], [place] [address] Ramirez Thomason MD, Band Sawmill Operator CLIA: [id number] Sodium 138 135-145 mmol/L Potassium 4.0 3.5-5.3 mmol/L Chloride 104 97-108 mmol/L CO2 23 20-32 mmol/L Glucose 78 65-99 mg/dL BUN 9 6-20 mg/dL Creatinine 0.75 0.50-1.00 mg/dL Calcium 9.3 8.6-10.4 mg/dL eGFR by Creatinine 103 >59 mL/min/1.73m2 Protein 7.6 6.0-8.3 g/dL Albumin 4.5 3.5-5.3 g/dL Alkaline Phosphatase 59 35-121 IU/L ALT (SGPT) 12 <5-47 IU/L AST (SGOT) 17 <5-40 IU/L Bilirubin, Total 0.7 <0.2-1.2 mg/dL A/G Ratio 1.5 1.1-2.5 A-C-Tcsszgfd Protein (CRP), High Sensitivity Reviewed date:12/31/2024 08:23:56 AM Interpretation:Normal Performing Lab: Notes/Report: Test performed by [facility] [address] [place] [address] , [address], [place] [id number] Ramirez Thomason MD, Band Sawmill Operator CLIA: [id number] C-Reactive Protein (CRP), High Sensitivity 0.70 <3.01 mg/L For non-specific CRP usage, refer [...] should be used to determine patient risk. Ehrlichiosis and Lyme Diseas e Evaluation Reviewed date:12/31/2024 08:23:56 AM Interpretation:Normal Performing Lab: Notes/Report: Test performed by [facility], [address] , [address], [place] [address] Ramirez Thomason MD, Band Sawmill Operator CLIA: [id number] AND Test performed by [facility] [address] [place] [id number] Celia Lemus MD, Band Sawmill Operator B. burgdorferi Antibody IgG Immunoblot Negative Negative BGIG Interpretation See Below Band(s) present: 39, 58, 93 kDa. (Insufficient number of bands for positive result) For this assay, a positive result is reported when any 5 or more of the following 10 bands are present: 18, 23, 28, 30, 39, 41, 45, 58, 66, or 93 kDa. All other banding patterns are reported as negative. B. burgdorferi Antibody IgM Immunoblot Negative Negative BM Interpretation See Below No Band(s) present (Insufficient number of bands for positive result) For this assay, a positive result is reported when any 2 or more of the following bands are present: 23, 39, or 41 kDa. All other banding patterns are reported as negative. A. phagocytophilum Ab IgM < 1:16 < 1:16 INTERPRETIVE INFORMATION: A. phagocytophilum (HGA) Antibody, IgM Less than 1:16 - No significant level of IgM antibodies to A. phagocytophilum detected. Greater than or equal to 1:16 - Suggestive of a current or recent infection with A. phagocytophilum. This test was developed and its performance characteristics determined by [facility]. It has not been cleared or approved by the US Food and Drug Administration. This test was performed in a CLIA certified laboratory and is intended for clinical purposes. Performed By: [facility] [address] [place], [place] [id number] Band Sawmill Operator: Ramón Prakash MD, PhD CLIA Number: [id number] A. phagocytophilum Ab IgG <1:80 <1:80 INTERPRETIVE INFORMATION: A. phagocytophilum (HGA) Antibody, IgG Less than 1:80 - No significant level of IgG antibodies to A. phagocytophilum detected. Greater than or equal to 1:80 - Suggestive of a recent or past infection with A. phagocytophilum. This test was developed and its performance characteristics determined by [facility]. It has not been cleared or approved by the US Food and Drug Administration. This test was performed in a CLIA certified laboratory and is intended for clinical purposes. P-Sed Rate (ESR) Reviewed date:12/31/2024 08:23:56 AM Interpretation:Normal Performing Lab: Notes/Report: Test performed by [facility] [address] [place] [address] [place] [address] Ramirez Thomason MD, Band Sawmill Operator CLIA: [id number] Erythrocyte Sedimentation Rate (ESR), Automated 9 <26 mm/hr P-T4 Free (thyroxine) Reviewed date:12/31/2024 08:23:56 AM Interpretation:Normal Performing Lab: Notes/Report: Test performed by [facility] [address] [place] [address] [place] [address] Ramirez Thomason MD, Band Sawmill Operator CLIA: [id number] Thyroxine Free (free T4) 1.12 0.86-1.76 ng/dL P-TSH Reviewed date:12/31/2024 08:23:56 AM Interpretation:Normal Performing Lab: Notes/Report: Test performed by [facility] [address] [place] [address] [place] [address] Ramirez Thomason MD, Band Sawmill Operator CLIA: [id number] TSH 1.53 0.43-5.25 mU/L P-Vitamin D 25-Hydroxy Reviewed date:12/31/2024 08:23:56 AM Interpretation:25.4 Performing Lab: Notes/Report: Test performed by [facility] [address] [place] [address] [address] Ramirez Thomason MD, Band Sawmill Operator CLIA: [id number] Vitamin D 25-Hydroxy 25.4 30.0-100.0 ng/mL Interpretation of Vitamin D 25 OH: < 20 ng/mL - Deficiency 20 - 29 ng/mL - Insufficiency 30 - 100 ng/mL - Sufficiency > 100 ng/mL - Super-therapeutic- toxicity may occur above this level. Clinical correlation required. Covid test (in house) Reviewed date:12/26/2024 04:42:15 PM Interpretation: Performing Lab: Notes/Report: Result: Neg REASON FOR VISIT achey, not feeling good Medications Medication SIG (Take, Route, Frequency, Duration) Notes Start Date End Date Status Meclizine HCl 25 mg TAKE ONE TABLET BY M OUTH THREE TIMES DAILY NEEDED; Duration: 7 Active Montelukast Sodium 10 mg 1 tablet Orally Once a day; Duration: 90 days Active Promethazine HCl 25 mg TAKE ONE TABLET B Y MOUTH EVERY 6 HOURS NEEDED MAY CAUSE DROWSINESS; Duration: 8 Active Ondansetron 4 mg DISSOLVE ONE TABLET UNDER THE TONGUE THREE TIMES DAILY NEEDED; Duration: 10 Active Humira (2 Pen) 40 MG/0.4ML INJECT 40 MG SUBCUTANEOUSLY EVERY 2 WEEKS; Duration: 28 Acti ve tiZANidine HCl 2 MG 1 tablet as needed O rally Three times a day; Duration: 30 day(s) 01/12/2023 Active Bisoprolol Fumarate 5 MG 1 tablet Orally Once a day; Duration: 90 days 06/21/2024 Active DULoxetine HCl 60 mg TAKE ONE CAPSULE BY MOUTH EVERY DAY; Duration: 30 days Active Omeprazole 40 MG 1 capsule 30 minutes before morning meal Orally Once a day; Duration: 90 days Active Vitamin D (Ergocalciferol) 1.25 MG (81368 UT) 1 capsule Orally once a week; Duration: 30 days Active Trulance 3 MG 1 tablet Orally Once a day; Duration: 90 days 12/28/2023 Active Vital Signs Height 67 in 12/26/2024 Weight 188 lbs 12/26/2024 BMI 29.44 kg/m2 12/26/2024 Encounters Encounter Location Date Provider Diagnosis [facility] [address] [place], [place] [id number] 12/26/2024 Sally Cordova Rheumatoid arthritis involving multiple sites, unspecified whether rheumatoid factor present M06.9 ; Thyroid nodule E04.1 ; Fatigue, unspecified type R53.83 ; Palpitations R00.2 ; Vitamin D deficiency E55.9 and Body aches R52 Assessments Encounter Date Diagnosis (ICD Code) Assessment Notes Treatment Notes Treatment Clinical Notes Section Notes 12/26/2024 Rheumatoid arthritis involving multiple sites, unspecified whether rheumatoid factor present (ICD-10 - M06.9) 12/26/2024 Thyroid nodule (ICD-10 - E04.1) 12/26/2024 Fatigue, unspecified type (ICD-10 - R53.83) 12/26/2024 Palpitations (ICD-10 - R00.2) 12/26/2024 Vitamin D deficiency (ICD-10 - E55.9) 12/26/2024 Body aches (ICD-10 - R52) Plan Of Treatment Next Appt Details Follow Up: via phone to repo rt test results, Reason: Progress Notes * CHIKA MURODOB:1985 (3 0 yo F)Acc No.[id number]:12/26/2024 Progress Notes Patient: CHIKA KRISHNAMURTHY Provider: [place] Sanchez :1985 A ge:39 Y S ex:Female Date:12/26/2024 Address:[address] [place] [address] Subjective: * Chief Complaints: * 1 . Achey, not feeling good. * HPI: C ardiology: 39 year old female presents with c/o Chest Pain P t complains of chest pain that worsens with activity. Pt states chest pain started yesterday and she has felt short of breath as well . D ermatology: c/o bug bites P t complains of tick bite on lt great toe and pinky toe 2 -3 weeks ago. Pt states she did pull the ticks off but is concerned about Lyme Disease. Pt complains of worsening multiple joint aches. Pt states aching started between her shoulder blades yesterday and aches have moved to knees, fingers a nd hips today. Pt states she has had a terrible headache for 2 days. Pt states that fatigue has worsened and she is hardly able to keep her eyes open. Pt states she does have joint aches daily but this just feels different . * ROS: D ERMATOLOGY: no R tim. [...] 12/2012, Colonoscopy 2014, Hysterectomy- Dr. Perea, [facility] 11/30/2014, Laperoscopy 11/19/2019, Colonoscopy, 1 Polyp Removed, Repeat 3 Years 02/22/2023, Thyroid Nodule Biopsy 10/22/2024. * Hospitalization/Major Diagno stic Procedure: M igraine, Lumbar Puncture- [facility] 04/04-10/2017, Migraine- [facility] 06/20/2018, Abdominal Pain, Constipation- [facility] 12/17-, Aura Migraine- [facility] 03/13/2020, Elevated BP- [facility] 07/15/2021, Abdominal Pain, Vomiting- [facility] 12/26/2022, Abdominal Pain, Vomiting- [facility] 12/28/2022, Abdominal Pain, Vomiting- [facility] 12/29-12/31/2022, Abdominal Pain, Vomiting- [facility] 02/05-05/2023. * Family History: F ather: alive [...] Hypertension, Heart Disease.?Maternal aunt: alive, diagnosed with Cancer, Hypertension, Stroke, Heart Disease. S iblings: alive. C saludrizwan: alive. 2 brother(s) , 1 sister(s) - healthy. 3 son(s) , 1 daughter(s) - healthy. . Pt's materal grandfather, grandmother, uncle and aunt passed of heart attacks, heart disease, chf by the age of 60. * 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: C URRENT TOBACCO USE: No . C affeine: yes, frequency: Daily. Home smoke detector use: yes. Marital Status: . Alcohol: no. * Medications: T aking Trulance 3 MG Tablet 1 tablet Orally Once a day , Taking tiZANidine HCl 2 MG Tablet 1 tablet as needed Orally Three times a day , Taking Bisoprolol Fumarate 5 MG Tablet 1 tablet Orally Once a day , Taking DULoxetine HCl 60 mg Capsule Delayed Release Particles TAKE ONE CAPSULE BY MOUTH EVERY DAY , Taking Omeprazole 40 MG Capsule Delayed Release 1 capsule 30 minutes before morning meal Orally Once a day , Taking Vitamin D (Ergocalciferol) 1.25 MG (11902 UT) Capsule 1 capsule Orally once a week , Taking Meclizine HCl 25 mg Tablet TAKE ONE TABLET BY MOUTH THREE TIMES DAILY NEEDED , Taking Montelukast Sodium 10 mg Tablet 1 tablet Orally Once a day , Taking Promethazine HCl 25 mg Tablet TAKE ONE TABLET BY MOUTH EVERY 6 HOURS NEEDED MAY CAUSE DROWSINESS , Taking Ondansetron 4 mg Tablet Disintegrating DISSOLVE ONE TABLET UNDER THE TONGUE THREE TIMES DAILY NEEDED , Taking Humira (2 Pen) 40 MG/0.4ML Auto-injector Kit INJECT 40 MG SUBCUTANEOUSLY EVERY 2 WEEKS , Discontinued hydrOXYzine HCl 25 MG Tablet 1 tab(s) orally 4 times a day, prn , Medication List reviewed and reconciled with the patient * Allergies: C efaclor: hives - Allergy, Bactrim: hives - Allergy, Indomethacin: dizziness - Side Effects. Objective: * Vitals: W t: 188, Temp: 98.0, Nurse: PE, Ht: 67, BMI:29.44. * Examination: G eneral Examination: General Appearance: N AD. H EENT: u nremarkable.?Oral cavity: n o lesions, mucosa moist and WNL, no erythema. N noa: s upple, no lymphadenopathy. C hest: n ormal shape and expansion. H eart: R SR. L ungs: c lear to auscultation. A bdomen: b owel sounds present, soft and nontender. N eurologic Exam: I ntact, gait normal. S kin: n ormal, no rash. P eripheral pulses: n ormal (2+) bilaterally. E xtremities: n o leg edema. Assessment: * Assessment: 1. R zeustoid arthritis involving multiple sites, unspecified whether rheumatoid factor present - M06.9 (Primary) 2 . T hyroid nodule - E04.1 3 . F atigue, unspecified type - R53.83 4 . P alpitations - R00.2 5 . V itamin D deficiency - E55.9 6 . B juarez aches - R52 Plan: * Treatment: Value Reference Range C -Reactive Protein (CRP), High Sensitivity 0.70 <3.01 - mg/L * Sally Cordova 12/30/2024 1 1:24:52 PM EDT >sent to [facility] 12/31/2024 08:23:44 AM EDT > Noted ?LAB: P-Sed Rate (ESR) (Collection Date & Time - 12/26/2024 12:03 PM)?Normal * Value Reference Range E rythrocyte Sedimentation Rate (ESR), Automated 9 <26 - mm/hr * Sally Cordova Dione 12/30/2024 1 1:24:52 PM EDT >sent to [facility] 12/31/2024 08:23:44 AM EDT > Noted 2.?Thyroid nodule?LAB: P-T4 Free (thyroxine) (Collection Date & Time - 12/26/2024 12:03 PM)? Normal* Value Reference Range T hyroxine Free (free T4) 1.12 0.86-1.76 - ng/d L * Sally Cordova Dione 12/30/2024 1 1:24:52 PM EDT >sent to [facility] 12/31/2024 08:23:44 AM EDT > Noted ?LAB: P-TSH (Collection Date & Time - 12/26/2024 12:03 PM)?Normal* Value Reference Range T SH 1.53 0.43-5.25 - mU/L * Sally Cordova Dione 12/30/2024 1 1:24:52 PM EDT >sent to [facility] 12/31/2024 08:23:44 AM EDT > Noted 3.?Fatigue, unspecified type?LAB: P-Lyme Disease (B. burgodorferi), IgG/IgM, BIN, Serum (Collection Date & Time - 12/26/2024 12:03 PM)?Normal* Value Reference Range B burgdorferi (Lyme Disease) IgG Negative Negative - * B burgdorferi (Lyme Disease) IgM Negative Negative - * Sally Cordova 12/30/2024 1 1:24:52 PM EDT >sent to [facility] 12/31/2024 08:23:44 AM EDT > Noted ?LAB: P-T4 Free (thyroxine) (Collection Date & Time - 12/26/2024 12:03 PM)? Normal* Value Reference Range T hyroxine Free (free T4) 1.12 0.86-1.76 - ng/d L * Sally Cordova 12/30/2024 1 1:24:52 PM EDT >sent to [facility] 12/31/2024 08:23:44 AM EDT > Noted ?LAB: P-TSH (Collection Date & Time - 12/26/2024 12:03 PM)?Normal* Value Reference Range T SH 1.53 0.43-5.25 - mU/L * Sally Cordova 12/30/2024 1 1:24:52 PM EDT >sent to [facility] 12/31/2024 08:23:44 AM EDT > Noted ?LAB: Influenza Screen (in house) (Collection Date & Time - 12/26/2024)* Value Reference Range r esults Neg * [facility] 12/26/2024 11:12: 44 AM EDT > Provider reviewed results while patient in office. ?LAB: CBC Venipuncture (in house) (Collection Date & Time - 12/26/2024)* Value Reference Range w bc 5.4 3.5 - 10 * l ymph 28.4% 15 - 50 * m id 6.7% 2 - 15 * g ran 64.9% 35 - 80 * r bc 4.68 3.5 - 5.5 * h gb 13.5 11.5 - 16.5 * h ct 40.9 35 - 55 * m cv 87.4 75 - 100 * m ch 28.9 25 - 35 * m chc 33.0 31 - 38 * p latlet 291 100 - 400 * Sally Cordova 12/26/2024 0 3:21:30 PM EDT > ?LAB: Covid test (in house) (Collection Date & Time - 12/26/2024)* Value Reference Range R esult: Neg * Chika Muro 12/26/2024 11:13: 06 AM EDT > Provider reviewed results while patient in office. 4.?Palpitations?LAB: P-Comprehensive Metabolic Panel (CMP) (Collection Date & Time - 12/26/2024 12:03 PM)?Normal* Value Reference Range A /G Ratio 1.5 1.1-2.5 - * A lbumin 4.5 3.5-5.3 - g/dL * A lkaline Phosphatase 59 35-121 - IU/L * A LT (SGPT) 12 <5-47 - IU/L * A ST (SGOT) 17 <5-40 - IU/L * B ilirubin, Total 0.7 <0.2-1.2 - mg/dL * B UN 9 6-20 - mg/dL * C alcium 9.3 8.6-10.4 - mg/dL * C hloride 104 97-108 - mmol/L * C O2 23 20-32 - mmol/L * C reatinine 0.75 0.50-1.00 - mg/dL * G lucose 78 65-99 - mg/dL * P otassium 4.0 3.5-5.3 - mmol/L * S odium 138 135-145 - mmol/L * P rotein 7.6 6.0-8.3 - g/dL * e GFR by Creatinine 103 >59 - mL/min/1.73m2 * Sally Cordova 12/30/2024 1 1:24:52 PM EDT >sent to [facility] 12/31/2024 08:23:44 AM EDT > Noted 5.?Vitamin D deficiency?LAB: P-Vitamin D 25-Hydroxy (Collection Date & Time - 12/26/2024 12:03 PM)? 25.4* Value Reference Range V itamin D 25-Hydroxy 25.4 L 30.0-100.0 - ng/mL * Sally Cordova 12/30/2024 1 1:24:52 PM EDT >sent to [facility] 12/31/2024 08:23:44 AM EDT > Noted 6.?Body aches?LAB: Influenza Screen (in house) (Collection Date & Time - 12/26/2024)* Value Reference Range r esults Neg * BhaskarPrabhuChika 12/26/2024 11:12: 44 AM EDT > Provider reviewed results while patient in office. ?LAB: Covid test (in house) (Collection Date & Time - 12/26/2024)* Value Reference Range R esult: Neg * Bhaskar Chika 12/26/2024 11:13: 06 AM EDT > Provider reviewed results while patient in office. * Labs: * L ab: Ehrlichiosis and Lyme Disease Evaluation (Collection Date & Time - 12/26/2024 12:03 PM) N ormal Value Reference Range A . phagocytophilum Ab IgG <1:80 <1:80 - * A . phagocytophilum Ab IgM < 1:16 < 1:16 - * B . burgdorferi Antibody IgG Immunoblot Negative Ne gative - * B . burgdorferi Antibody IgM Immunoblot Negative Ne gative - * B GIG Interpretation See Below - * B M Interpretation See Below - * [facility], support 12/30/2024 05:45:07 : This order was created by the Interface. Shmuel Cordovaselina Parham 12/30/2024 11:24:52 PM EDT >sent to [facility] 12/31/2024 08:23:44 AM EDT > Noted * Procedure Codes: 8 5025 CBC WITH AUTO DIFF, 01918 VENIPUNCT, ROUTINE*, 49533 Flu Test- Nasal Swab, Modifiers: QW , 65223 COVID TEST IN HOUSE, Modifiers: QW * Follow Up: v ia phone to report test results * Images: Billing Information: * Visit Code: 13180 Office Visit, Est Pt., Level 4. * Procedure Codes: 41928 CBC WITH AUTO DIFF. 45733 VENIPUNCT, ROUTINE*. 35934 Flu Test- Nasal Swab. Modifiers: QW 27296 COVID TEST IN HOUSE. Modifiers: QW * Electronic signature of MATT Gutierrez on 04/16/2025 at 08:57 AM EDT Sign off status: Pending * Provider: [place] Sanchez Date: 0 12/26/2024 Generated for Odin schneider/Antoni/Stacia on: 1 08:57 AM EDT History and Physical Notes * HPI (History of Present Illness) Category Sub-Category Detail Notes Category Not es Dermatology bug bites Pt complains of tick bite on lt great toe and pinky toe 2-3 weeks ago. Pt states she did pull the ticks off but is concerned about Lyme Disease. Pt complains of worsening multiple joint aches. Pt states aching started between her shoulder blades yesterday and aches have moved to knees, fingers and hips today. Pt states she has had a terrible headache for 2 days. Pt states that fatigue has worsened and she is hardly able to keep her eyes open. Pt states she does have joint aches daily but this just feels different Cardiology Chest Pain Pt complains of chest pain that worsens with activity. Pt states chest pain started yesterday and she has felt short of breath as well Examination Category Sub-Category Detail Notes Category Not es General Examination HEENT: unremarkable Heart: RSR Lungs: clear to auscultatio n Abdomen: bowel sounds present , soft and nontender Extremities: no leg edema General Appearance: NAD Skin: normal, no rash Neurologic Exam: Intact, gait normal Neck: supple, no lymphaden opathy Oral cavity: no lesions, mucosa m oist and WNL, no erythema Peripheral pulses: normal (2+) bilatera lly Chest: normal shape and exp ansion
--- OUTSIDE RECORDS SUMMARY | 2024-12-26 12:45 | XMS_ITS ---
Author Organization [facility] Address [address] [facility] [address] [place], [place] [id number] Care Team Providers Care Mathematics Education Professor Name Role Phone Sally Cordova Primary Care Provider [phone] Allergies Allergen (clinical drug ingredient) Drug/Non Drug [...] Interpretation:Normal Performing Lab: Notes/Report: Test performed by [facility] [address] [facility] , [address], [place] [address] Ramirez Thomason MD, Solder Sprayer CLIA: [id number] B burgdorferi (Lyme Disease) IgG Negative Negative B burgdorferi (Lyme Disease) IgM Negative Negative P-Comprehensive Metabolic Pa rickie (CMP) Reviewed date:12/31/2024 08:23:56 AM Interpretation:Normal Performing Lab: Notes/Report: Test performed by [facility] [address] [place] [address] , [address], [place] [address] Ramirez Thomason MD, Solder Sprayer CLIA: [id number] Sodium 138 135-145 mmol/L Potassium 4.0 3.5-5.3 [...] 0.7 <0.2-1.2 mg/dL A/G Ratio 1.5 1.1-2.5 A-H-Uychjozg Protein (CRP), High Sensitivity Reviewed date:12/31/2024 08:23:56 AM Interpretation:Normal Performing Lab: Notes/Report: Test performed by [facility] [address] [place] [address] , [address], [place] [id number] Ramirez Thomason MD, Solder Sprayer CLIA: [id number] C-Reactive Protein (CRP), High Sensitivity 0.70 <3.01 [...] Interpretation:Normal Performing Lab: Notes/Report: Test performed by [facility], [address] , [address], [place] [address] Ramirez Thomason MD, Solder Sprayer CLIA: [id number] AND Test performed by [facility] [address] [place] [address] Celia Lemus MD, Solder Sprayer B. burgdorferi Antibody IgG Immunoblot Negative Negative [...] developed and its performance characteristics determined by [facility]. It has not been cleared or approved by the US Food and Drug Administration. This test was performed in a CLIA certified laboratory and is intended for clinical purposes. Performed By: [facility] [address] [place], [place] [id number] Solder Sprayer: Ramón Prakash MD, PhD CLIA Number: [id number] A. phagocytophilum Ab IgG <1:80 <1:80 INTERPRETIVE INFORMATION: A. phagocytophilum (HGA) Antibody, IgG Less than 1:80 - No significant level of IgG antibodies to A. phagocytophilum detected. Greater than or equal to 1:80 - Suggestive of a recent or past infection with A. phagocytophilum. This test was developed and its performance characteristics determined by [facility]. It has not been cleared or approved by the US Food and Drug Administration. This test was performed in a CLIA certified laboratory and is intended for clinical purposes. P-Sed Rate (ESR) Reviewed date:12/31/2024 08:23:56 AM Interpretation:Normal Performing Lab: Notes/Report: Test performed by [facility] [address] [place] [address] [place] [address] Ramirez Thomason MD, Solder Sprayer CLIA: [id number] Erythrocyte Sedimentation Rate (ESR), Automated 9 <26 mm/hr P-T4 Free (thyroxine) Reviewed date:12/31/2024 08:23:56 AM Interpretation:Normal Performing Lab: Notes/Report: Test performed by [facility] [address] [place] [address] [place] [address] Ramirez Thomason MD, Solder Sprayer CLIA: [id number] Thyroxine Free (free T4) 1.12 0.86-1.76 ng/dL P-TSH Reviewed date:12/31/2024 08:23:56 AM Interpretation:Normal Performing Lab: Notes/Report: Test performed by [facility] [address] [place] [address] [place] [address] Ramirez Thomason MD, Solder Sprayer CLIA: [id number] TSH 1.53 0.43-5.25 mU/L P-Vitamin D 25-Hydroxy Reviewed date:12/31/2024 08:23:56 AM Interpretation:25.4 Performing Lab: Notes/Report: Test performed by [facility] [address] [place] [address] [place] [address] Ramirez Thomason MD, Solder Sprayer CLIA: [id number] Vitamin D 25-Hydroxy 25.4 30.0-100.0 ng/mL Interpretation [...] days Active Vitamin D (Ergocalciferol) 1.25 MG (70843 UT) 1 capsule Orally once a week; Duration: 30 days Active Trulance 3 MG 1 tablet Orally Once a day; Duration: 90 days 12/28/2023 Active Vital Signs Weight 188 lbs 12/26/2024 Height 67 in 12/26/2024 BMI 29.44 kg/m2 12/26/2024 Encounters Encounter Location Date Provider Diagnosis [facility] [address] [facility] [address] [place], [place] [phone] 12/26/2024 Sally Cordova Rheumatoid arthritis involving multiple [...] * CHIKA MURODOB:1985 ([age] yo F)Acc No.[id number]:12/26/2024 Progress Notes Patient: CHIKA KRISHNAMURTHY Provider: [place] Sanchez :1985 A ge:39 Y S ex:Female Date:12/26/2024 Address:[address] [place] [address] Subjective: * Chief Complaints: * 1 . [...] Ablation 12/2012, Colonoscopy 2014, Hysterectomy- Dr. Perea, [facility] 11/30/2014, Laperoscopy 11/19/2019, Colonoscopy, 1 Polyp Removed, Repeat 3 Years 02/22/2023, Thyroid Nodule Biopsy 10/22/2024. * Hospitalization/Major Diagno stic Procedure: M igraine, Lumbar Puncture- [facility] 04/04-10/2017, Migraine- [facility] 06/20/2018, Abdominal Pain, Constipation- [facility] 12/17-, Aura Migraine- [facility] 03/13/2020, Elevated BP- [facility] 07/15/2021, Abdominal Pain, Vomiting- [facility] 12/26/2022, Abdominal Pain, Vomiting- [facility] 12/28/2022, Abdominal Pain, Vomiting- [facility] 12/29-12/31/2022, Abdominal Pain, Vomiting- [facility] 02/05-05/2023. * Family History: F ather: [...] , Taking Vitamin D (Ergocalciferol) 1.25 MG (91056 UT) Capsule 1 capsule Orally once a [...] 12/30/2024 1 1:24:52 PM EDT >sent to [facility] 12/31/2024 08:23:44 AM EDT > Noted ?LAB: P-Sed Rate (ESR) (Collection Date & Time - 12/26/2024 12:03 PM)?Normal * Value Reference Range E rythrocyte Sedimentation Rate (ESR), Automated 9 <26 - mm/hr * Sally Cordova Dione 12/30/2024 1 1:24:52 PM EDT >sent to [facility] 12/31/2024 08:23:44 AM EDT > Noted 2.?Thyroid nodule?LAB: P-T4 Free (thyroxine) (Collection Date & Time - 12/26/2024 12:03 PM)? Normal* Value Reference Range T hyroxine Free (free T4) 1.12 0.86-1.76 - ng/d L * Sally Cordova Dione 12/30/2024 1 1:24:52 PM EDT >sent to [facility] 12/31/2024 08:23:44 AM EDT > Noted ?LAB: P-TSH (Collection Date & Time - 12/26/2024 12:03 PM)?Normal* Value Reference Range T SH 1.53 0.43-5.25 - mU/L * Sally Cordova Dione 12/30/2024 1 1:24:52 PM EDT >sent to [facility] 12/31/2024 08:23:44 AM EDT > Noted 3.?Fatigue, unspecified type?LAB: P-Lyme Disease (B. burgodorferi), IgG/IgM, BIN, Serum (Collection Date & Time - 12/26/2024 12:03 PM)?Normal* Value Reference Range B burgdorferi (Lyme Disease) IgG Negative Negative - * B burgdorferi (Lyme Disease) IgM Negative Negative - * Sally Cordova 12/30/2024 1 1:24:52 PM EDT >sent to [facility] 12/31/2024 08:23:44 AM EDT > Noted ?LAB: P-T4 Free (thyroxine) (Collection Date & Time - 12/26/2024 12:03 PM)? Normal* Value Reference Range T hyroxine Free (free T4) 1.12 0.86-1.76 - ng/d L * Sally Cordova 12/30/2024 1 1:24:52 PM EDT >sent to [facility] 12/31/2024 08:23:44 AM EDT > Noted ?LAB: P-TSH (Collection Date & Time - 12/26/2024 12:03 PM)?Normal* Value Reference Range T SH 1.53 0.43-5.25 - mU/L * Sally Cordova 12/30/2024 1 1:24:52 PM EDT >sent to [facility] 12/31/2024 08:23:44 AM EDT > Noted ?LAB: Influenza Screen (in house) (Collection Date & Time - 12/26/2024)* Value Reference Range r esults Neg * [facility] 12/26/2024 11:12: 44 AM EDT > Provider [...] B M Interpretation See Below - * [facility], support 12/30/2024 05:45:07 : This order was created by the Interface. Shmuel Cordovaselina Parham 12/30/2024 11:24:52 PM EDT >sent to [facility] 12/31/2024 08:23:44 AM EDT > Noted * Procedure Codes: 8 5025 CBC WITH AUTO DIFF, 24159 VENIPUNCT, ROUTINE*, 29698 Flu Test- Nasal Swab, Modifiers: QW , 37892 COVID TEST IN HOUSE, Modifiers: QW * Follow Up: v ia phone to report test results * Images: Billing Information: * Visit Code: 85700 Office Visit, Est Pt., Level 4. * Procedure Codes: 18830 CBC WITH AUTO DIFF. 34078 VENIPUNCT, ROUTINE*. 53433 Flu Test- Nasal Swab. Modifiers: QW 97394 COVID TEST IN HOUSE. Modifiers: QW * Electronic signature of MATT Gutierrez on 04/15/2025 at 07:35 AM EDT Sign off status: Pending * Provider: M[place] Sanchez Date: 0 12/26/2024 Generated for Odin schneider/Antoni/Stacia on: 1 07:35 AM EDT History and Physical Notes * [...]
--- OUTSIDE RECORDS SUMMARY | 2025-02-07 11:30 | XMS_ITS ---
Author Organization [facility] Address [address] [facility] [address] [phone] Care Team Providers Care Economics Department Chair Name Role Phone Sally Cordova Primary Care [...] days Active Vitamin D (Ergocalciferol) 1.25 MG (54552 UT) 1 capsule Orally once a week; [...] Provider Diagnosis [facility] [address] [facility] [address] [place] [phone] 02/07/2025 Sally Cordova Plan Of Treatment No Information Progress Notes * TAMMY RAUSCHDOB:1985 ([age] yo F)Acc No.[id number]:02/07/2025 Progress Notes Patient: TAMMY KRISHNAMURTHY Provider: [place] Sanchez :1985 A ge:39 Y S ex:Female Date:02/07/2025 Address:[address] [place] [address] Subjective: * Chief Complaints: * 1 . [...] Ablation 12/2012, Colonoscopy 2014, Hysterectomy- Dr. Perea, [facility] 11/30/2014, Laperoscopy 11/19/2019, Colonoscopy, 1 Polyp Removed, Repeat 3 Years 02/22/2023, Thyroid Nodule Biopsy 10/22/2024. * Hospitalization/Major Diagno stic Procedure: M igraine, Lumbar Puncture- [facility] 04/04-10/2017, Migraine- [facility] 06/20/2018, Abdominal Pain, Constipation- [facility] 12/17-, Aura Migraine- [facility] 03/13/2020, Elevated BP- [facility] 07/15/2021, Abdominal Pain, Vomiting- [facility] 12/26/2022, Abdominal Pain, Vomiting- [facility] 12/28/2022, Abdominal Pain, Vomiting- [facility] 12/29-12/31/2022, Abdominal Pain, Vomiting- [facility] 02/05-05/2023. * Family History: F ather: [...] , Taking Vitamin D (Ergocalciferol) 1.25 MG (47963 UT) Capsule 1 capsule Orally once a [...] Sanchez Date: 0 02/07/2025 Generated for Odin schneider/Antoni/Stacia on: 1 07:35 [...]
--- OUTSIDE RECORDS SUMMARY | 2025-02-07 11:30 | XMS_ITS ---
Author Organization [facility] Address [address] [facility] [address] [phone] Care Team Providers Care Industrial Engineering Technologist Name Role Phone Sally Cordova Primary Care [...] days Active Vitamin D (Ergocalciferol) 1.25 MG (91712 UT) 1 capsule Orally once a week; [...] Provider Diagnosis [facility] [address] [facility] [address] [place] [phone] 02/07/2025 Sally Cordova Plan Of Treatment No Information Progress Notes * TAMMY RAUSCHDOB:1985 ([age] yo F)Acc No.[id number]:02/07/2025 Progress Notes Patient: TAMMY KRISHNAMURTHY Provider: [place] Sanchez :1985 A ge:39 Y S ex:Female Date:02/07/2025 Address:[address] [place] [address] Subjective: * Chief Complaints: * 1 . [...] Ablation 12/2012, Colonoscopy 2014, Hysterectomy- Dr. Perea, [facility] 11/30/2014, Laperoscopy 11/19/2019, Colonoscopy, 1 Polyp Removed, Repeat 3 Years 02/22/2023, Thyroid Nodule Biopsy 10/22/2024. * Hospitalization/Major Diagno stic Procedure: M igraine, Lumbar Puncture- [facility] 04/04-10/2017, Migraine- [facility] 06/20/2018, Abdominal Pain, Constipation- [facility] 12/17-, Aura Migraine- [facility] 03/13/2020, Elevated BP- [facility] 07/15/2021, Abdominal Pain, Vomiting- [facility] 12/26/2022, Abdominal Pain, Vomiting- [facility] 12/28/2022, Abdominal Pain, Vomiting- [facility] 12/29-12/31/2022, Abdominal Pain, Vomiting- [facility] 02/05-05/2023. * Family History: F ather: [...] , Taking Vitamin D (Ergocalciferol) 1.25 MG (81257 UT) Capsule 1 capsule Orally once a [...] signature of MATT Gutierrez on 04/16/2025 at 08:56 AM EDT Sign off status: Pending * Provider: M[place] Sanchez Date: 0 02/07/2025 Generated for Odin schneider/Antoni/Stacia on: 1 08:56 AM EDT History and Physical Notes * [...]
--- OUTSIDE RECORDS SUMMARY | 2025-02-17 07:15 | XMS_ITS ---
Author Organization [facility] Address 1210 [facility] [address] [id number] Care Team Providers Care Staff Development Coordinator Name Role Phone Sally Cordova Primary Care Provider Maggy Quiroz Unavailable [phone] Allergies Allergen (clinical drug ingredient) Drug/Non Drug [...] days Active Vitamin D (Ergocalciferol) 1.25 MG (38140 UT) 1 capsule Orally once a week; [...] W/U Status Risk Notes Problem Acute constipation (024985813) Acute constipation (K59.00) Active confirmed Vital Signs Blood pressure systolic 130 mm Hg 02/18/20 25 Blood pressure diastolic 76 mm Hg 025 Heart Rate 104 /min 02/17/2025 Height 67 in 02/17/2025 Weight 179 lbs 02/17/2025 BMI 28.03 kg/m2 02/17/2025 Encounters Encounter Location Date Provider Diagnosis [facility] [address] [place], [place] [id number] 02/17/2025 Maggy Quiroz Abdominal pain R10.9 and [...] Next Appt Details Follow Up: prn, Reason: Progress Notes * TAMMY RAUSCHDOB:1985 (3 0 yo F)Acc No.[id number]:02/17/2025 Progress Notes Patient: TAMMY KRISHNAMURTHY Provider: RAJESH Roldan :1985 A ge:39 Y S ex:Female Date:02/17/2025 Address:[address] [place] [address] Pcp:Sally Cordova Subjective: * Chief Complaints: * [...] Ablation 12/2012, Colonoscopy 2014, Hysterectomy- Dr. Perea, [facility] 11/30/2014, Laperoscopy 11/19/2019, Colonoscopy, 1 Polyp Removed, Repeat 3 Years 02/22/2023, Thyroid Nodule Biopsy 10/22/2024. * Hospitalization/Major Diagno stic Procedure: M igraine, Lumbar Puncture- [facility] 04/04-10/2017, Migraine- [facility] 06/20/2018, Abdominal Pain, Constipation- [facility] 12/17-, Aura Migraine- [facility] 03/13/2020, Elevated BP- [facility] 07/15/2021, Abdominal Pain, Vomiting- [facility] 12/26/2022, Abdominal Pain, Vomiting- [facility] 12/28/2022, Abdominal Pain, Vomiting- [facility] 12/29-12/31/2022, Abdominal Pain, Vomiting- [facility] 02/05-05/2023. * Family History: F ather: [...] , Taking Vitamin D (Ergocalciferol) 1.25 MG (39770 UT) Capsule 1 capsule Orally once a [...] > Provider reviewed results while patient in office.Quiroz Maggy 02/17/2025 03:52:11 PM EDT > * Procedure Codes: 3 6416 CAPILLARY BLOOD DRAW, 19155 CBC WITH AUTO DIFF, 28410 Urinalysis, no micro, 1036F TOBACCO NON-USER, 3075F SYST BP GE 130 - 139MM HG, 3078F DIAST BP < 80 MM HG * Follow Up: p rn * Images: Billing Information: * Visit Code: 97829 Office Visit, Est Pt., Level 3. * Procedure Codes: 23659 CAPILLARY BLOOD DRAW. 25487 CBC WITH AUTO DIFF. 99469 Urinalysis, no micro. 1036F TOBACCO NON-USER. 3075F SYST BP GE 130 - 139MM HG. 3078F DIAST BP < 80 MM HG. * Electronic signature of Deisy Quiroz APRN on 04/16/2025 at 08:56 AM EDT Sign off status: Pending * Provider: RAJESH Roldan Date: 0 02/17/2025 Generated for Odin schneider/Antoni/Stacia on: 1 08:56 [...]
--- OUTSIDE RECORDS SUMMARY | 2025-02-17 07:15 | XMS_ITS ---
Author Organization [facility] Address 1210 [facility] [address] [id number] Care Team Providers Care Electronic Scale Tester Name Role Phone Sally Cordova Primary Care Provider Maggy Quiroz Unavailable [phone] Allergies Allergen (clinical drug ingredient) Drug/Non Drug [...] days Active Vitamin D (Ergocalciferol) 1.25 MG (16478 UT) 1 capsule Orally once a week; [...] W/U Status Risk Notes Problem Acute constipation (759881622) Acute constipation (K59.00) Active confirmed Vital Signs Weight 179 lbs 02/17/2025 Blood pressure systolic 130 mm Hg 02/18/20 25 Blood pressure diastolic 76 mm Hg 025 Heart Rate 104 /min 02/17/2025 Height 67 in 02/17/2025 BMI 28.03 kg/m2 02/17/2025 Encounters Encounter Location Date Provider Diagnosis [facility] [address] [place], [place] [id number] 02/17/2025 Maggy Quiroz Abdominal pain R10.9 and [...] * TAMMY RAUSCHDOB:1985 ([age] yo F)Acc No.[id number]:02/17/2025 Progress Notes Patient: TAMMY KRISHNAMURTHY Provider: RAJESH Roldan :1985 A ge:39 Y S ex:Female Date:02/17/2025 Address:[address] [place] [address] Pcp:Sally Cordova Subjective: * Chief Complaints: * [...] 12/2012, Colonoscopy 2014, Hysterectomy- Dr. Perea, [facility] 11/30/2014, Laperoscopy 11/19/2019, Colonoscopy, 1 Polyp Removed, Repeat 3 Years 02/22/2023, Thyroid Nodule Biopsy 10/22/2024. * Hospitalization/Major Diagno stic Procedure: M igraine, Lumbar Puncture- [facility] 04/04-10/2017, Migraine- [facility] ER 06/20/2018, Abdominal Pain, Constipation- [facility] 12/17-, Aura Migraine- [facility] 03/13/2020, Elevated BP- [facility] 07/15/2021, Abdominal Pain, Vomiting- [facility] 12/26/2022, Abdominal Pain, Vomiting- [facility] 12/28/2022, Abdominal Pain, Vomiting- [facility] 12/29-12/31/2022, Ab[facility], [facility] [...] , Taking Vitamin D (Ergocalciferol) 1.25 MG (06263 UT) Capsule 1 capsule Orally once a [...] > Provider reviewed results while patient in office.QuirozCrystalMaggy 02/17/2025 03:52:11 PM EDT > * Procedure Codes: 3 6416 CAPILLARY BLOOD DRAW, 08072 CBC WITH AUTO DIFF, 21303 Urinalysis, no micro, 1036F TOBACCO NON-USER, 3075F SYST BP GE 130 - 139MM HG, 3078F DIAST BP < 80 MM HG * Follow Up: p rn * Images: Billing Information: * Visit Code: 34743 Office Visit, Est Pt., Level 3. * Procedure Codes: 26365 CAPILLARY BLOOD DRAW. 27926 CBC WITH AUTO DIFF. 44869 Urinalysis, no micro. 1036F TOBACCO NON-USER. 3075F SYST BP GE 130 - 139MM HG. 3078F DIAST BP < 80 MM HG. * Electronic signature of Deisy Quiroz APRN on 04/15/2025 at 07:35 AM EDT Sign off status: Pending * Provider: RAJESH Roldan Date: 0 02/17/2025 Generated for Odin schneider/Antoni/Stacia on: 1 07:35 [...]
--- OUTSIDE RECORDS SUMMARY | 2025-03-06 01:12 | XMS_ITS | Continuity of Care Document ---
Author Organization [facility] Phone Care Team Providers Care Ship Superintendent Name Role Phone KAROL TOBAR Primary Attending Unavailable EDIOSN STATON Unavailable KAROL TOBAR Admitting Unavailable EDISON STATON Primary Care ALLERGIES AND ADVERSE REACTIONS ALLERGIES AND ADVERSE REACTIONS Code System Allergy Substance Adverse Reaction Date Reaction (Severity) Comment Status Reported By Updated By 6915 RXNorm Reglan Rash hives active [id number] on March 04, 2025 10:35:50 PM UTC 2176 RXNorm Ceclor Rash hives active [id number] on March 04, 2025 10:35:50 PM UTC 89931 RXNorm Bactrim Rash hives active [id number] o n March 04, 2025 10:35:50 PM UTC 5797 RXNorm INDOMETHACIN Adverse reaction to substance swelling active [id number] on March 04, 2025 10:35:50 PM [place] FAMILY HISTORY RELATION: Father Status: LIVING SNOMED-CT Diagnosis Age At Onset Information not available RELATION: Mother Status: LIVING SNOMED-CT Diagnosis Age At Onset [id number] Hypertensive disorder [id number] Disorder of thyroid gland RESULTS Patient: KING TAMMY Gale Date of : [birth year] 0 LABORATORY RESULTS Information is not available LABORATORY NARRATIVE RESULTS Information is not available RADIOLOGY RESULTS ORDER 100: CT BRAIN W/O (KATI NC: 87773-7) ORDER DATE: March 04, 2025 10:37:00 PM [place] PERFORMING LAB: [address] [id number] Final Result Date: March 04, 2025 11:19:46 [facility] [address] [address] Name: TAMMY RAUSCH Exam Date: 03/04/2025 : 1985 Age 39 years Gender: F Physician: SHAUNNA HEARD Facility: [facility] Facility HSV: Outpatient Exam: CT BRAIN W/O Noncontrast CT examination of the head obtained transaxially from the skull base to the vertex Automated exposure control, adjustment of the mA and/or kV according to patient size, and/or iterative reconstruction. Unless otherwise specified, incidental findings do not require dedicated imaging follow-up. [id number]. CLINICAL INDICATION: Female, 39 years old. Headache COMPARISON: None. Findings: Ventricular sulci configuration is within normal limits. There is no midline shift or other significant mass effect. MRI remains more sensitive for acute stroke or underlying mass. There is no acute intracranial hemorrhage or abnormal extra-axial fluid collection. Posterior fossa is intact. Mastoids are well aerated. The visualized portions of the paranasal sinuses are clear. Impression: No hemorrhage, midline shift or other significant mass effect. Electronically signed by: Lizette Aguirre MD 03/04/2025 07:19 PM EDT Dictated By: Lizette Aguirre Transcribed By: Transcribed On: 03/04/2025 7:19 PM Electronically signed by: Lizette Aguirre 03/04/2025 Thank you for referring TAMMY RAUSCH to [facility]. Legally authenticated by LUKAS MYERS 2025-03-04 19:19:46 ORDER 200: CT CERVICAL SPINE W/O (LOINC: 97736-4) ORDER DATE: March 04, 2025 10:37:00 PM [facility] PERFORMING LAB: [address] [id number] Final Result Date: March 04, 2025 11:21:28 PM [facility] [address] [address] Name: TAMMY RAUSCH Exam Date: 03/04/2025 : 1985 Age 39 years Gender: F Physician: SHAUNNA HEARD Facility: [facility] Facility HSV: Outpatient Exam: CT CERVICAL SPINE W/O CT Cervical Spine CT examination of the cervical spine obtained transaxially with coronal and sagittal reconstructions Automated exposure control, adjustment of the mA and/or kV according to patient size, and/or iterative reconstruction. Unless otherwise specified, incidental findings do not require dedicated imaging follow-up. [id number]. CLINICAL INDICATION: Female, 39 years old. Pain without Trauma/Injury COMPARISON: None. Findings: Vertebral body heights are maintained. Cervical rings maintain integrity. Disc spaces are preserved. There is no prevertebral soft tissue swelling. Visualized portions of the upper lungs are clear. Impression: No fracture or subluxation. Electronically signed by: Lizette Aguirre MD 03/04/2025 07:21 PM EDT Dictated By: Lizette Aguirre Transcribed By: Transcribed On: 03/04/2025 7:21 PM Electronically signed by: Lizette Aguirre 03/04/2025 Thank you for referring TAMMY RAUSCH to [facility]. Legally authenticated by LUKAS MYERS 2025-03-04 19:21:28 PATHOLOGY NARRATIVE RESULTS Information is not available MICROBIOLOGY RESULTS No Micro Labs/Results Exist for Patient BLOOD ADMIN RESULTS Information is not available MEDICATIONS HOME MEDICATIONS Status RXNORM NDC Medication Dose Route Frequency Dates Comments Reported By Updated By Drug Treatment Unknown DISCHARGE MEDICATIONS Status RXNORM NDC Medication Dose Route Frequency Dates Dis pense Data Comments Physician Updated By No Discharge Medication Info rmation Available INPATIENT MEDICATIONS Status RXNORM NDC Medication Dose Route Frequency Rat e Quantity Dates Indication Dispense Data Comments Physician Updated By Barbara inued [id number] 3050 601 dexamethaso ne (DECADRON) 10 MG/ML SOLN 10.0 MG INTRAV ENOUS ONE TIME ONLY (SCHEDULED DOSE) Start: 2024 10:40: 00 PM [facility] End: 2024 10:40: 00 PM [facility] AMADOU ROBERSON INTERFAC ED on 2024 10:39:00 PM [facility] Barbara inued [id number] 9321 0041 501 cyclobenzap rine (FLEXERIL) 10 MG TABS 10.0 MG ORAL ONE TIME ONLY (SCHEDULED DOSE) Start: 2024 10:40: 00 PM UTC End: 2024 10:40: 00 PM UTC [place] [facility] ED on 2024 10:39:00 PM [place] Disclobo inmartina [id number] [phone] ketorolac (TORADOL) 15 MG/ML SOLN 15.0 MG INTRAV ENOUS ONE TIME ONLY (SCHEDULED DOSE) Start: 2024 11:34: 00 PM UTC End: 2024 11:34: 00 PM UTC [facility] on 2024 11:34:00 PM UT SOCIAL HISTORY SOCIAL HISTORY - Smoking Status SNOMED-CT 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 Element Description Effective Dates Offered Cessation Comment Updated By [id number] Current Tobacco smoking status Never Smoked [id number] on March 04, 2025 10:48:17 PM [place] [id number] Historical Tobacco smoking status Current Every Day Smoker 1PPD [id number] on November 18, 2019 8:13:11 PM [place] [id number] Historical Tobacco smoking status Former Smoker Yes Patients offered smoking cessation information as part of the Admission Packet. [id number] on December 02, 2015 1:59:15 PM [place] SOCIAL HISTORY - Gender Sex: Female SOCIAL HISTORY - Status : status i nformation is not available Intention in Next Year: intention information is not available SOCIAL HISTORY - Assessments Code System Description Status Date Value of Assessment Updated By Comment Assessment Information is no t available SOCIAL HISTORY - [place] Affiliation [place] information is not av ailable SOCIAL HISTORY - Legal Sex Legal Sex information is not available SOCIAL HISTORY - Sexual Behavior Sexual Orientation Gender Identity SNOMED-CT Description SNO MED -CT Description Activity Level No of Partners Partner Type UpdatedBy Information is not available SOCIAL HISTORY - Occupation Occupation information is no t available VITAL SIGNS PATIENT VITAL SIGNS This section displays the mo st recent value for each vital sign as of March 06, 2025 5:12:27 AM [place] Loinc Code Vital Sign Activity Date Result Updated By 8310-5 Body temperature March 04 11:30:00 PM UTC 97.6 [degF] 8462-4 Diastolic blood pressure 2024 10:34:00 PM UTC 89.0 mm[Hg] 8867-4 Heart rate March 04 11:30:00 PM UTC 93 /min 19196-7 Oxygen saturation in Arterial blood by Pulse oximetry March 04, 2025 11:30:00 PM UTC 100.0 % 9279-1 Respiratory rate March 04 11:30:00 PM UTC 18 /min 8480-6 Systolic blood pressure Marayo 2024 10:34:00 PM UTC 131.0 mm[Hg] PEDIATRIC GROWTH CHART - VITAL SIGNS This section displays Head C ircumference Percentile, Weight for Length Percentile and BMI Percentile Loinc Code Pediatric Measure Age (Months) Result Updat ed By No Pediatric Growth Chart Pe rcentile Information Available. HEALTH CONCERNS Problems Concern Status Health Concern problem infor mation not available. Smoking Status Status Years Used Consumed packs p er day Health Concern smoking histo ry information not available. Family History Concern Status Health Concern family histor y information not available. ENCOUNTERS ENCOUNTER INFORMATION Reason for Visit NECK PAIN Admission March 04, 2025 10:32:00 PM [place] C [address] [id number] Discharge March 04, 2025 11:44:00 PM UT C DISCHARGED TO HOME OR SELF CARE ENCOUNTER DIAGNOSES Notes information is not abel ilable. Code System Diagnosis Onset Date Diagnosis information is not available. ABSTRACT DIAGNOSES Code System Diagnosis Updated By Abatement Date M54.2 ICD10 CERVICALGIA [id number] on Mar 5:11:49 AM [facility] R51.9 ICD10 HEADACHE, UNSPECIFIED [id number] on March 06, 2025 5:11:49 AM [facility] H92.03 ICD10 OTALGIA, BILATERAL [id number] o n March 06, 2025 5:11:49 AM [facility] G43.009 ICD10 MIGRAINE WITHOUT AURA, NOT INTRACTABLE, WITHOUT STATUS MIGRAINOSUS [id number] on March 06, 2025 5:11:49 AM [facility] Z88.2 ICD10 ALLERGY STATUS T O SULFONAMIDES [id number] on March 06, 2025 5:11:49 AM [facility] Z88.8 ICD10 ALLERGY STATUS T O OTHER DRUGS, MEDICAMENTS AND BIOLOGICAL SUBSTANCES [id number] on March 06, 2025 5:11:49 AM [facility] CARE TEAM Care Ship Superintendent Role KAROL TOBAR Primary Attending EDISON STATON Referring KAROL TOBAR Admitting EDISON STATON Primary Care CARE TEAM CARE lawn care worker Role on Team Location Telecom Status Start Date End Dilan e Updated By BRIONNA HOGAN Referring normal March 04, 2025 10:43:08 PM [place] March 04, 2025 11:44:00 PM UT [id number] on March 04, 2025 10:43:08 PM [place] AMADOU ROBERSON Attending normal March 04, 2025 10:43:08 PM UT March 04, 2025 11:44:00 PM UT [id number] on March 04, 2025 10:43:08 PM [place] AMADOU ROBERSON Admitting normal March 04, 2025 10:43:08 PM [place] March 04, 2025 11:44:00 PM UT [id number] on March 04, 2025 10:43:08 PM [facility] BRIONNA HOGAN PCP normal March 04, 2025 10:32:55 PM UTC March 04, 2025 11:44:00 PM UT [id number] on March 04, 2025 10:43:08 PM [facility]
--- OUTSIDE RECORDS SUMMARY | 2025-03-27 09:30 | XMS_ITS ---
Author Organization [facility] Address [address] [facility] [address] [phone] Care Team Providers Care Direct Support Professional Home Health Name Role Phone Sally Cordova Primary Care Provider Allergies Allergen (clinical drug ingredient) Drug/Non Drug Allergy documented on EMR Reaction Allergy Type Onset Date Status sulfamethoxazole / trimethoprim Bactrim hives Drug Allergy Active cefaclor Cefaclor hives Drug Allergy Active indomethacin Indomethacin dizziness Drug Allergy A ctive Results Component Value Reference Range Notes Urinalysis - Inhouse Reviewed date:03/28/2025 05:53:48 PM Interpretation: Performing Lab: Notes/Report: Color/Clarity dark/clear Leuk neg Nitrite neg Urobili 33 Protein trace pH 5.5 Blood 1 Sp. Gr. 1.025 Ketone neg Bili 1+ Gluc neg REASON FOR VISIT back pain Medications Medication SIG (Take, Route, Frequency, Duration) Notes Start Date End Date Status Promethazine HCl 25 mg TAKE ONE TABLET B Y MOUTH EVERY 6 HOURS NEEDED MAY CAUSE DROWSINESS; Duration: 8 Active tiZANidine HCl 2 MG 1 tablet as needed O rally Three times a day; Duration: 30 day(s) Active Omeprazole 40 MG 1 capsule 30 minutes before morning meal Orally Once a day; Duration: 90 days Active Linzess 290 MCG 1 capsule at least 3 0 minutes before the first meal of the day on an empty stomach Orally Once a day; Duration: 30 days 02/18/2025 Active Humira (2 Pen) 40 MG/0.4ML INJECT 40 MG SUBCUTANEOUSLY EVERY 2 WEEKS; Duration: 28 Acti ve DULoxetine HCl 60 mg TAKE ONE CAPSULE BY MOUTH EVERY DAY; Duration: 30 days Active Meclizine HCl 25 mg TAKE ONE TABLET BY M OUTH THREE TIMES DAILY NEEDED; Duration: 7 Active Vitamin D (Ergocalciferol) 1.25 MG (41474 UT) 1 capsule Orally once a week; Duration: 30 days Active Ondansetron 4 mg DISSOLVE ONE TABLET UNDER THE TONGUE THREE TIMES DAILY NEEDED; Duration: 10 Active Montelukast Sodium 10 mg 1 tablet Orally Once a day; Duration: 90 days Active Medrol 4 MG as directed orally d aily; Duration: 6 days 03/27/2025 Active Vital Signs Weight 172.6 lbs 03/27/2025 Blood pressure systolic 128 mm Hg 03/27/20 Blood pressure diastolic 74 mm Hg Heart Rate 94 /min 03/27/2025 Height 67 in 03/27/2025 BMI 27.03 kg/m2 03/27/2025 Encounters Encounter Location Date Provider Diagnosis [facility] [address] [facility] [address] [facility] 36 [facility] [address] [place] [phone] 03/27/2025 Sally Cordova Muscle spasm of back M62.830 Assessments Encounter Date Diagnosis (ICD Code) Assessment Notes Treatment Notes Treatment Clinical Notes Section Notes 03/27/2025 Muscle spasm of back (ICD-10 - M62.830) Has tizanidine at home. Plan Of Treatment Medication Medication Name Sig Start Date Stop Date Notes Medrol 4 MG as directed orally daily; Duration: 6 days Treatment Notes Assessment Notes Muscle spasm of back Has tizanidine at h ome. Next Appt Details Follow Up: prn, Reason: Progress Notes * TAMMY RAUSCHDOB:1985 (3 0 yo F)Acc No.[id number]:03/27/2025 Progress Notes Patient: TAMMY KRISHNAMURTHY Provider: MATT Sanchez :1985 A ge:39 Y S ex:Female Date:03/27/2025 Address:[address] [place] [address] Subjective: * Chief Complaints: * 1 . Back pain. * HPI: M id Back: 39 year old female presents with c/o Middle Back Pain P t complains of burning back pain for about 3 weeks. Pt states doing simple house chores is becoming difficult. Pt states when she is doing something that involves moving her arms a lot her mid and upper back will start to burn and ache making it hard to complete the task. Pt states back is starting to hurt when she is standing and walking a lot as well. Pt has tried heat, exercises and t aking Tizanidine 2mg at night to help ease pain but it is no longer working. L ower back: c/o Low Back Pain P t complains of rt lower back pain for a while . Pt states there are times when she moves rt leg she feels a catch . Pt states that pain is unbearable at times . * ROS: R ESPIRATORY: no S hortness of breath. n o C hest pain. ? C ARDIOLOGY: no P alpitations. n o S hortness of breath. ? G ASTROENTEROLOGY: no N ausea. n o V omiting. * Medical History: H ypertension, Hyperlipidemia, Allergic Rhinitis, Depression, Endometriosis, Migraines, RA Factor Positive 2017, Rheumatoid Arthritis, Anxiety. * Surgical History: C holecystectomy 2003, D & C 2003,2004, Filshie Clips Tubal Ligation 05/21/2012, Endometrial Ablation 12/2012, Colonoscopy 2014, Hysterectomy- Dr. Perea, [facility] 11/30/2014, Laperoscopy 11/19/2019, Colonoscopy, 1 Polyp Removed, Repeat 3 Years 02/22/2023, Thyroid Nodule Biopsy 10/22/2024. * Hospitalization/Major Diagno stic Procedure: M igraine, Lumbar Puncture- [facility] 04/04-10/2017, Migraine- [facility] 06/20/2018, Abdominal Pain, Constipation- [facility] 12/17-, Aura Migraine- [facility] 03/13/2020, Elevated BP- [facility] 07/15/2021, Abdominal Pain, Vomiting- [facility] 12/26/2022, Abdominal Pain, Vomiting- [facility] 12/28/2022, Abdominal Pain, Vomiting- [facility] 12/29-12/31/2022, Abdominal Pain, Vomiting- [facility] 02/05-05/2023. * Family History: [...] son(s) , 1 daughter(s) - healthy. . N on-Contributory. Pt's materal grandfather, grandmother, uncle and aunt passed of heart attacks, heart disease, chf by the age of 60. * 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: C URRENT TOBACCO USE: No . C affeine: yes, frequency: Daily. Home smoke detector use: yes. Marital Status: . Alcohol: no. * Medications: T aking DULoxetine HCl 60 mg Capsule Delayed Release Particles TAKE ONE CAPSULE BY MOUTH EVERY DAY , Taking Vitamin D (Ergocalciferol) 1.25 MG (89392 UT) Capsule 1 capsule Orally once a week , Taking Meclizine HCl 25 mg Tablet TAKE ONE TABLET BY MOUTH THREE TIMES DAILY NEEDED , Taking Montelukast Sodium 10 mg Tablet 1 tablet Orally Once a day , Taking Ondansetron 4 mg Tablet Disintegrating DISSOLVE ONE TABLET UNDER THE TONGUE THREE TIMES DAILY NEEDED , Taking Humira (2 Pen) 40 MG/0.4ML Auto-injector Kit INJECT 40 MG SUBCUTANEOUSLY EVERY 2 WEEKS , Taking Linzess 290 MCG Capsule 1 capsule at least 30 minutes before the first meal of the day on an empty stomach Orally Once a day , Taking Omeprazole 40 MG Capsule Delayed Release 1 capsule 30 minutes before morning meal Orally Once a day , Taking tiZANidine HCl 2 MG Tablet 1 tablet as needed Orally Three times a day , Taking Promethazine HCl 25 mg Tablet TAKE ONE TABLET BY MOUTH EVERY 6 HOURS NEEDED MAY CAUSE DROWSINESS , Discontinued Trulance 3 MG Tablet 1 tablet Orally Once a day , Discontinued Bisoprolol Fumarate 5 MG Tablet 1 tablet Orally Once a day , Medication List reviewed and reconciled with the patient * Allergies: C efaclor: hives - Allergy, Bactrim: hives - Allergy, Indomethacin: dizziness - Side Effects. Objective: * Vitals: W t: 172.6, Temp: 98.2, BP: 128/74, HR: 94, Nurse: SF, Ht: 67, BMI:27.03. * Examination: G eneral Examination: General Appearance: N AD. C hest: n ormal shape and expansion. H eart: R SR. L ungs: c lear to auscultation. B ack: t tp along the lumbar spine and tenderness with trigger points down the paraspinal muscles, pain with flexion and extension. Assessment: * Assessment: 1. M uscle spasm of back - M62.830 (Primary) Plan: * Treatment: Value Reference Range C olor/Clarity dark/clear * L euk neg * N itrite neg * U robili 33 * P rotein trace * p H 5.5 * B lood 1 * S p. Gr. 1.025 * K etone neg * B sylvie 1+ * G paramjit neg * Devi Wyatt 03/27/2025 01: 12:25 PM EDT > Provider reviewed results while patient in office. Notes: Has tizanidine at home.?? * Procedure Codes: 8 1002 Urinalysis, no micro * Follow Up: p rn * Images: Billing Information: * Visit Code: 71761 Office Visit, Est Pt., Level 3. * Procedure Codes: 29034 Urinalysis, no micro. * Electronic signature of MATT Gutierrez on 04/15/2025 at 07:34 AM EDT Sign off status: Pending * Provider: MATT Sanchez Date: 0 03/27/2025 Generated for Odin schneider/Antoni/Stacia on: 1 07:34 AM EDT History and Physical Notes * HPI (History of Present Illness) Category Sub-Category Detail Notes Category Not es Lower back Low Back Pain Pt complains of rt lower back pain for a while . Pt states there are times when she moves rt leg she feels a catch . Pt states that pain is unbearable at times Mid Back Middle Back Pain Pt complains of burning back pain for about 3 weeks. Pt states doing simple house chores is becoming difficult. Pt states when she is doing something that involves moving her arms a lot her mid and upper back will start to burn and ache making it hard to complete the task. Pt states back is starting to hurt when she is standing and walking a lot as well. Pt has tried heat, exercises and taking Tizanidine 2mg at night to help ease pain but it is no longer working Examination Category Sub-Category Detail Notes Category Not es General Examination Heart: RSR Lungs: clear to auscultatio n General Appearance: NAD Back: ttp along the lumbar spine and tenderness with trigger points down the paraspinal muscles, pain with flexion and extension Chest: normal shape and exp ansion
--- OUTSIDE RECORDS SUMMARY | 2025-03-27 09:30 | XMS_ITS ---
Author Organization [facility] Address [address] [facility] [address] [phone] Care Team Providers Care Rolls Mill Operator Name Role Phone Sally Cordova Primary Care [...] 7 Active Vitamin D (Ergocalciferol) 1.25 MG (14671 UT) 1 capsule Orally once a week; Duration: 30 days Active Ondansetron 4 mg DISSOLVE ONE TABLET UNDER THE TONGUE THREE TIMES DAILY NEEDED; Duration: 10 Active Montelukast Sodium 10 mg 1 tablet Orally Once a day; Duration: 90 days Active Medrol 4 MG as directed orally d aily; Duration: 6 days 03/27/2025 Active Vital Signs Blood pressure systolic 128 mm Hg 03/27/20 Blood pressure diastolic 74 mm Hg 025 Heart Rate 94 /min 03/27/2025 Height 67 in 03/27/2025 Weight 172.6 lbs 03/27/2025 BMI 27.03 kg/m2 03/27/2025 Encounters Encounter Location Date Provider Diagnosis [facility] [address] [facility] 36 [facility] [address] [place] [phone] 03/27/2025 Sally Cordova Muscle spasm of back [...] * TAMMY RAUSCHDOB:1985 ([age] yo F)Acc No.[id number]:03/27/2025 Progress Notes Patient: TAMMY KRISHNAMURTHY Provider: MATT Sanchez :1985 A ge:39 Y S ex:Female Date:03/27/2025 Address:[address] [place] [address] Subjective: * Chief Complaints: * 1 . [...] 12/2012, Colonoscopy 2014, Hysterectomy- Dr. Perea, [facility] 11/30/2014, Laperoscopy 11/19/2019, Colonoscopy, 1 Polyp Removed, Repeat 3 Years 02/22/2023, Thyroid Nodule Biopsy 10/22/2024. * Hospitalization/Major Diagno stic Procedure: M igraine, Lumbar Puncture- [facility] 04/04-10/2017, Migraine- [facility] 06/20/2018, Abdominal Pain, Constipation- [facility] 12/17-, Aura Migraine- [facility] 03/13/2020, Elevated BP- [facility] 07/15/2021, Abdominal Pain, Vomiting- [facility] 12/26/2022, Abdominal Pain, Vomiting- [facility] 12/28/2022, Abdominal Pain, Vomiting- [facility] 12/29-12/31/2022, Abdominal Pain, Vomiting- [facility] 02/05-05/2023. * Family History: F ather: [...] , Taking Vitamin D (Ergocalciferol) 1.25 MG (93815 UT) Capsule 1 capsule Orally once a [...] * Images: Billing Information: * Visit Code: 48532 Office Visit, Est Pt., Level 3. * Procedure Codes: 60642 Urinalysis, no micro. * Electronic signature of MATT Gutierrez on 04/16/2025 at 08:56 AM EDT Sign off status: Pending * Provider: MATT Sanchez Date: 0 03/27/2025 Generated for Oidn schneider/Antoni/Stacia on: 1 08:56 AM EDT History [...]
--- OUTSIDE RECORDS SUMMARY | 2025-04-08 09:45 | XMS_ITS ---
Author Organization [facility] Address [address] [facility] [address] [id number] Care Team Providers Care Renal Dietitian Name Role Phone Sally Cordova Primary Care Provider [phone] Maggy Quiroz Unavailable [phone] Allergies Allergen (clinical drug ingredient) Drug/Non Drug Allergy documented on EMR Reaction Allergy Type Onset Date Status sulfamethoxazole / trimethoprim Bactrim hives Drug Allergy Active cefaclor Cefaclor hives Drug Allergy Active indomethacin Indomethacin dizziness Drug Allergy A ctive Results Component Value Reference Range Notes X ray : Hip, right Reviewed date:04/11/2025 02:10:57 PM Interpretation:Negative Performing Lab: Notes/Report: Negative X ray : Spine, thoracic spin e Reviewed date:04/10/2025 03:43:28 PM Interpretation: Performing Lab: Notes/Report: REASON FOR VISIT back pain Medications Medication SIG (Take, Route, Frequency, Duration) Notes Start Date End Date Status Meclizine HCl 25 mg TAKE ONE TABLET BY M OUTH THREE TIMES DAILY NEEDED; Duration: 7 Active Ondansetron 4 mg DISSOLVE ONE TABLET UNDER THE TONGUE THREE TIMES DAILY NEEDED; Duration: 10 Active Humira (2 Pen) 40 MG/0.4ML INJECT 40 MG SUBCUTANEOUSLY EVERY 2 WEEKS; Duration: 28 Active Linzess 290 MCG 1 capsule at least 3 0 minutes before the first meal of the day on an empty stomach Orally Once a day; Duration: 30 days 02/18/2025 Active DULoxetine HCl 60 mg 1 capsule orally on ce a day; Duration: 30 days Active Vitamin D (Ergocalciferol) 1.25 MG (50923 UT) 1 capsule Orally once a week; Duration: 30 days Active Meloxicam 7.5 MG 1 tablet/;p[ =========- Orally twice a day; Duration: 30 days 04/08/2025 Active Cyclobenzaprine HCl 10 MG 1 tablet Orall y 3 times a day, prn 03/29/2025 Active Omeprazole 40 MG 1 capsule 30 minutes before morning meal Orally Once a day; Duration: 90 days Active tiZANidine HCl 2 MG 1 tablet as needed O rally Three times a day; Duration: 30 day(s) Active Promethazine HCl 25 mg TAKE ONE TABLET B Y MOUTH EVERY 6 HOURS NEEDED MAY CAUSE DROWSINESS; Duration: 8 Active Problems Problem Type SNOMED Code ICD Code Onset Dates Problem Status W/U Status Risk Notes Problem Acute back pain with sciatica (950560941) Acute back pain with sciatica (M54.40) Active confirmed Vital Signs Weight 170 lbs 04/08/2025 Blood pressure systolic 120 mm Hg 04/08/20 25 Blood pressure diastolic 78 mm Hg 025 Heart Rate 100 /min 04/08/2025 Height 67 in 04/08/2025 BMI 26.62 kg/m2 04/08/2025 Encounters Encounter Location Date Provider Diagnosis [facility] [address] [place] [id number] 04/08/2025 Maggy Quiroz Acute back pain with sciatica M54.40 Assessments Encounter Date Diagnosis (ICD Code) Assessment Notes Treatment Notes Treatment Clinical Notes Section Notes 04/08/2025 Acute back pain with sciatica (ICD-10 - M54.40) no lifting/pushing/ pulling; Ice/heat application prn; will do xrays; May need MRI Plan Of Treatment Medication Medication Name Sig Start Date Stop Date Notes Meloxicam 7.5 MG 1 tablet/;p[======== - Orally twice a day; Duration: 30 days 04/08/2025 Treatment Notes Assessment Notes Acute back pain with sciatica no lifting /pushing/pulling; Ice/heat application prn; will do xrays; May need MRI Pending Test Test Name Order Date X ray : Spine, lumbar 04/08/2025 Next Appt Details Follow Up: will discuss afte r xrays, Reason: Medications Administered Medication Instructions Date of Administration Dosage Notes Depo- Medrol 40 mg/ml 04/08/2025 1 mL Progress Notes * CHIKA RAUSCHDOB:1985 (3 0 yo F)Acc No.[id number]:04/08/2025 Progress Notes Patient: CHIKA KRISHNAMURTHY Provider: RAJESH Roldan :1985 A ge:39 Y S ex:Female Date:04/08/2025 Address:[address] [place] [address] Pcp:Sally Cordova Subjective: * Chief Complaints: * 1 . Back pain. * HPI: M id Back: heat sometimes helps;. 39 year old female presents with c/o Middle Back Pain P t complains of worsening back pain. Pt states she has a burning pain and it does prevent her from being able to complete even simple daily tasks/ chores. Pt states that pain is debilitating at times. Pt states that she is also getting a tingling sensation in her arms at times. Pain is becoming constant and pt is unable to get relief with muscle relaxers and/ or heat. Pt was seen 03/27 and rx'd Medrol dose pack, pt has completed . L ower back: c/o Low Back Pain P t complains of lower back pain that starts on right side and radiates to rt hip and down the front of rt thigh. Pt states when taking a deep breath in, pain worsens and shoots down the front of her rt thigh. Pt states that pain will get so bad that she cannot move rt leg at times due numbness and tingling. Pt states that she feels like something catches as well. Pt has tried exercises and stretches at home but has not had any relief.? c/o radiation of pain. c/o Sciatica. Denies : fall. D enies : Previous Injury. D enies : previous surgery. D enies : previous therapy. D enies : previous pain clinic. D enies : Physical Therapy. D enies : sleeping well. previous imaging y ears ago. b owel or bladder dysfunction c onstipation. * ROS: R ESPIRATORY: no S hortness [...] Ablation 12/2012, Colonoscopy 2014, Hysterectomy- Dr. Perea, [facility] 11/30/2014, Laperoscopy 11/19/2019, Colonoscopy, 1 Polyp Removed, Repeat 3 Years 02/22/2023, Thyroid Nodule Biopsy 10/22/2024. * Hospitalization/Major Diagno stic Procedure: M igraine, Lumbar Puncture- [facility] 04/04-10/2017, Migraine- [facility] 06/20/2018, Abdominal Pain, Constipation- [facility] 12/17-, Aura Migraine- [facility] 03/13/2020, Elevated BP- [facility] 07/15/2021, Abdominal Pain, Vomiting- [facility] 12/26/2022, Abdominal Pain, Vomiting- [facility] 12/28/2022, Abdominal Pain, Vomiting- [facility] 12/29-12/31/2022, Abdominal Pain, Vomiting- [facility] 02/05-05/2023. * Family History: F [...] T aking Vitamin D (Ergocalciferol) 1.25 MG (29888 UT) Capsule 1 capsule Orally once a week , Taking Meclizine HCl 25 mg Tablet TAKE ONE TABLET BY MOUTH THREE TIMES DAILY NEEDED , Taking Ondansetron 4 mg Tablet Disintegrating [...] HOURS NEEDED MAY CAUSE DROWSINESS , Taking Cyclobenzaprine HCl 10 MG Tablet 1 tablet Orally 3 times a day, prn , Taking DULoxetine HCl 60 mg Capsule Delayed Release Particles 1 capsule orally once a day , Discontinued Montelukast Sodium 10 mg Tablet 1 tablet Orally Once a day , Discontinued Medrol 4 MG Tablet Therapy Pack as directed orally daily , Medication List reviewed and reconciled with the patient * Allergies: C efaclor: hives - Allergy, Bactrim: hives - Allergy, Indomethacin: dizziness - Side Effects. Objective: * Vitals: W t: 170, Temp: 98.4, BP: 120/78, HR: 100, Nurse: pe, Ht: 67, BMI:26.62. * Examination: G eneral Examination: General Appearance: N AD, alert, pleasant, well nourished and hydrated. H eart: R RR. L ower back: Inspection: n ormal curvature of spine. S traight leg raising test: p ositive at 30 degrees on the right. M otor system: I V/V on the right.?Reflexes: b ilaterally symmetrical, diminished bilaterally. G ait: w alking with a limp. R reyes of motion: d ecreased at terminal ranges. U pper Back: Vertebral spine tenderness: t enderness in paraspinal muscles thoracic region. Assessment: * Assessment: 1. A cute back pain with sciatica - M54.40 (Primary) Plan: * Treatment: ?Imaging: X ray : Spine, thoracic spine (Performed Date - 04/08/2025)* Maggy Quiroz 04/10/2025 03:42:49 PM EDT >discussed with Chika; see encounter Notes: no lifting/pushing/pulling; Ice/heat application prn; will do xrays; May need MRI?? * Therapeutic Injections: Depo- Medrol 40 mg/ml : 1 mL (Route: Intramuscular) given by TIMOTHY Bauer on right gluteus (Acute back pain with sciatica) * Procedure Codes: J 1010 Inj, methylpred acetate 1 mg, 97209 ADMINISTRATION OF INJECTION * Follow Up: w ill discuss after xrays * Images: Billing Information: * Visit Code: 14193 Office Visit, Est Pt., Level 3. * Procedure Codes: J1010 Inj, methylpred acetate 1 mg. 56832 ADMINISTRATION OF INJECTION. * Electronic signature of Deisy Quiroz APRN on 04/15/2025 at 07:35 AM EDT Sign off status: Pending * Provider: RAJESH Roldan Date: Generated for Odin schneider/Antoni/Stacia on: 07:35 AM EDT History and Physical Notes * HPI (History of Present Illness) Category Sub-Category Detail Notes Category Not es Lower back fall Previous Injury Low Back Pain Pt complains of lowe r back pain that starts on right side and radiates to rt hip and down the front of rt thigh. Pt states when taking a deep breath in, pain worsens and shoots down the front of her rt thigh. Pt states that pain will get so bad that she cannot move rt leg at times due numbness and tingling. Pt states that she feels like something catches as well. Pt has tried exercises and stretches at home but has not had any relief radiation of pain previous surgery previous therapy previous imaging years ago previous pain clinic Physical Therapy sleeping well bowel or bladder dysfunction constipatio n Sciatica Mid Back Middle Back Pain Pt complains of worsening back pain. Pt states she has a burning pain and it does prevent her from being able to complete even simple daily tasks/ chores. Pt states that pain is debilitating at times. Pt states that she is also getting a tingling sensation in her arms at times. Pain is becoming constant and pt is unable to get relief with muscle relaxers and/ or heat. Pt was seen 03/27 and rx'd Medrol dose pack, pt has completed Examination Category Sub-Category Detail Notes Category Not es General Examination Heart: RRR General Appearance: NAD, alert, pleasant , well nourished and hydrated Upper Back Vertebral spine tenderness: tend erness in paraspinal muscles thoracic region Lower back Straight leg raising test: positive at 30 degrees on the right Motor system: IV/V on the right Reflexes: bilaterally symmetri manuela, diminished bilaterally Gait: walking with a limp Inspection: normal curvature of spine Range of motion: decreased at termina l ranges
--- OUTSIDE RECORDS SUMMARY | 2025-04-08 09:45 | XMS_ITS ---
Author Organization [facility] Address [address] [facility] [address] [id number] Care Team Providers Care Closed Circuit Screen Watcher Name Role Phone Sally Cordova Primary Care Provider [phone] Maggy Quiroz Unavailable [phone] Allergies Allergen (clinical drug ingredient) Drug/Non Drug [...] days Active Vitamin D (Ergocalciferol) 1.25 MG (98755 UT) 1 capsule Orally once a week; [...] Notes Problem Acute back pain with sciatica (099084004) Acute back pain with sciatica (M54.40) Active confirmed Vital Signs Blood pressure systolic 120 mm Hg 04/08/20 25 Blood pressure diastolic 78 mm Hg 025 Heart Rate 100 /min 04/08/2025 Height 67 in 04/08/2025 Weight 170 lbs 04/08/2025 BMI 26.62 kg/m2 04/08/2025 Encounters Encounter Location Date Provider Diagnosis [facility] [address] [place] [phone] 04/08/2025 Maggy Quiroz Acute back pain with [...] * CHIKA RAUSCHDOB:1985 ([age] yo F)Acc No.[id number]:04/08/2025 Progress Notes Patient: CHIKA KRISHNAMURTHY Provider: RAJESH Roldan :1985 A ge:39 Y S ex:Female Date:04/08/2025 Address:[address] [place] [address] Pcp:Sally Cordova Subjective: * Chief Complaints: * [...] Procedure: M igraine, Lumbar Puncture- [facility] 04/04-10/2017, Migraine- [facility] 06/20/2018, Abdominal Pain, Constipation- [facility] 12/17-, Aura Migraine- [facility] 03/13/2020, Elevated BP- [facility] 07/15/2021, Abdominal Pain, Vomiting- [facility] 12/26/2022, Abdominal Pain, Vomiting- [facility] 12/28/2022, Abdominal Pain, Vomiting- [facility] 12/29-12/31/2022, Abdominal Pain, Vomiting- [facility] 02/05-05/2023. * Family History: F ather: [...] T aking Vitamin D (Ergocalciferol) 1.25 MG (06904 UT) Capsule 1 capsule Orally once a [...] J 1010 Inj, methylpred acetate 1 mg, 06306 ADMINISTRATION OF INJECTION * Follow Up: w ill discuss after xrays * Images: Billing Information: * Visit Code: 41973 Office Visit, Est Pt., Level 3. * Procedure Codes: J1010 Inj, methylpred acetate 1 mg. 87291 ADMINISTRATION OF INJECTION. * Electronic signature of Deisy Quiroz APRN on 04/16/2025 at 08:56 AM EDT Sign off status: Pending * Provider: RAJESH Roldan Date: Generated for Odin schneider/Antoni/Stacia on: 08:56 AM EDT History and Physical Notes [...]
[2025-04-15] VITALS (30 sets, daily range): BP systolic 106–155; BP diastolic 58–102; PULSE 51–124; RESP 14–22; TEMP 36.1–36.9; O2SAT 93–100; BMI 27.4; BMI 29.7
[2025-04-15 07:34] LABS: Microscopic, Urine URINE MICROSCOPIC (MICROSCOPIC)
--- OUTSIDE RECORDS SUMMARY | 2025-04-15 07:34 | XMS_ITS | Referral Summary ---
Author Organization [employer] ([place], [place], [place], [place]) Address [address] [place] [address] Care Team Providers Care Glove Wrapper Name Role Phone Narinder Dior MD Primary Care Provider + [phone] Allergies Active Allergy Reactions Criticality Noted Date [...] Date Tremaine rded Speak language other than [place] at home Not on file 07/19/2023 Want [...] Plan of Treatment Not on file [facility] Care Teams Glove Wrapper Relationship Specialty Start Date End Date Narinder Dior MD [address] [facility] [address] [place] [id number] PCP - General Family Medicine 08/02/22
--- OUTSIDE RECORDS SUMMARY | 2025-04-15 07:35 | XMS_ITS | Clinical Summary ---
Author Organization [employer] ([place], [place], [place], [place]) Address [address] [place] [address] Care Team Providers Care Analysis Director Name Role Phone Narinder Dior MD Primary Care Provider + [phone] Allergies Active Allergy Reactions Criticality Noted Date [...] Date Tremaine rded Speak language other than [place] at home Not on file 07/19/2023 Want [...] patient's age to complete this topic [facility] Care Teams Analysis Director Relationship Specialty Start Date End Date Narinder Dior MD [address] [facility] [address] [place] [id number] PCP - General Family Medicine 08/02/22
--- OUTSIDE RECORDS SUMMARY | 2025-04-15 07:35 | XMS_ITS | Clinical Summary ---
Author Organization [facility] Address [address] [place] [address] Care Team Providers Care Radiation Protection Technician Name Role Phone Sally Cordova Primary Care Provider [phone] Allergies Active Allergy Reactions Criticality Noted Date [...] capsule Active vitamin D (ERGOCALCIFEROL) 1.25 MG (47882 UT) capsule capsule Take 1 capsule by [...] to Titer; Future XR Chest 2 View manager intermediate (current) use of n on-steroidal anti-inflammatories (nsaid) 06/03/2024 Assessment & Plan (06/03/2024 1:45 PM EST): Failed indomethacin and meloxicam Risks of nonsteroidal anti-inflammatory drugs discussed including GI upset, GI bleeding, renal and hepatic risk, and the risks of cardiovascular disease. Warned not to take with other NSAIDs including [id number] NSAIDs. Family History Medical History Relation Name [...] ve Non-Reacti ve 06/03/2024 11:16 PM EST [facility] Hep A IgM Non-Reacti ve Non-Reacti ve 06/03/2024 11:16 PM EST [facility] Hep B C IgM Non-Reacti ve Non-Reacti ve 06/03/2024 11:16 PM EST [facility] Hepatitis C Ab Non-Reacti ve Non-Reacti ve 06/03/2024 11:16 PM EST [facility] Blood Venipuncture / Unknown 06/03/2024 2:02 PM EST 06/03/2024 2:02 PM EST Narrative [facility] - 06/03/2024 11:16 PM EST Results may be falsely decreased if patient taking Biotin. Mario Mensah MD LAB BLOOD ORDERABLES Final Res ult [facility]
[address] [place] [address], from Last 3 Months or Most Recently Relevant to Health Maintenance Insurance [facility] Care Teams Radiation Protection Technician Relationship Specialty Start Date End Date Sally Cordova PA [address] [place] [address] [address] PCP - General Physician Pharmacy Tech Customer Service 10/17/23
--- OUTSIDE RECORDS SUMMARY | 2025-04-15 07:36 | XMS_ITS | Patient Health Record ---
Author Organization [facility] Address [address] [facility] [address] [id number] Care Team Providers Care Tattoo Designer Name Role Phone Sally Cordova Primary Care Provider Marko Quirozine Unavailable [phone] Allergies Allergen (clinical drug ingredient) Drug/Non Drug [...] Interpretation:Normal Performing Lab: Notes/Report: Test performed by [facility] , [address], [place] [address] Ramirez Thomason MD, Principal Embedded Software Engineer CLIA: [id number] B burgdorferi (Lyme Disease) IgG Negative Negative B burgdorferi (Lyme Disease) IgM Negative Negative P-Comprehensive Metabolic Pa rickie (CMP) Reviewed date:12/31/2024 08:23:56 AM Interpretation:Normal Performing Lab: Notes/Report: Test performed by [facility] [address] [place] [address] , [place] [address] Ramirez Thomason MD, Principal Embedded Software Engineer CLIA: [id number] Sodium 138 135-145 mmol/L Potassium 4.0 3.5-5.3 [...] 0.7 <0.2-1.2 mg/dL A/G Ratio 1.5 1.1-2.5 B-S-Mfnxtfut Protein (CRP), High Sensitivity Reviewed date:12/31/2024 08:23:56 AM Interpretation:Normal Performing Lab: Notes/Report: Test performed by [facility] [address] [place] [address] , [address], [place] [address] Ramirez Thomason MD, Principal Embedded Software Engineer CLIA: [id number] C-Reactive Protein (CRP), High Sensitivity 0.70 <3.01 [...] Interpretation:Normal Performing Lab: Notes/Report: Test performed by [facility], [address] , [address], [place] [address] Ramirez Thomason MD, Principal Embedded Software Engineer CLIA: [id number] AND Test performed by [facility] [address] [place] [address] Celia Lemus MD, Principal Embedded Software Engineer B. burgdorferi Antibody IgG Immunoblot Negative Negative [...] developed and its performance characteristics determined by [facility]. It has not been cleared or approved by the US Food and Drug Administration. This test was performed in a CLIA certified laboratory and is intended for clinical purposes. Performed By: [facility] [address] [place] [address] Principal Embedded Software Engineer: Ramón Prakash MD, PhD CLIA Number: [id number] A. phagocytophilum Ab IgG <1:80 <1:80 INTERPRETIVE INFORMATION: A. phagocytophilum (HGA) Antibody, IgG Less than 1:80 - No significant level of IgG antibodies to A. phagocytophilum detected. Greater than or equal to 1:80 - Suggestive of a recent or past infection with A. phagocytophilum. This test was developed and its performance characteristics determined by [facility]. It has not been cleared or approved by the US Food and Drug Administration. This test was performed in a CLIA certified laboratory and is intended for clinical purposes. P-Sed Rate (ESR) Reviewed date:12/31/2024 08:23:56 AM Interpretation:Normal Performing Lab: Notes/Report: Test performed by [facility] [address] [place] [address] , [place] [address] Ramirez Thomason MD, Principal Embedded Software Engineer CLIA: [id number] Erythrocyte Sedimentation Rate (ESR), Automated 9 <26 mm/hr P-T4 Free (thyroxine) Reviewed date:12/31/2024 08:23:56 AM Interpretation:Normal Performing Lab: Notes/Report: Test performed by [facility] [address] [place] [address] [place] [address] Ramirez Thomason MD, Principal Embedded Software Engineer CLIA: [id number] Thyroxine Free (free T4) 1.12 0.86-1.76 ng/dL P-TSH Reviewed date:12/31/2024 08:23:56 AM Interpretation:Normal Performing Lab: Notes/Report: Test performed by [facility] [address] [place] [address] Dr. [facility] [place] [address] Ramirez Thomason MD, Principal Embedded Software Engineer CLIA: [id number] TSH 1.53 0.43-5.25 mU/L P-Vitamin D 25-Hydroxy Reviewed date:12/31/2024 08:23:56 AM Interpretation:25.4 Performing Lab: Notes/Report: Test performed by [facility] [address] [place] [address] [place] [address] Ramirez Thomason MD, Principal Embedded Software Engineer CLIA: [id number] Vitamin D 25-Hydroxy 25.4 30.0-100.0 ng/mL Interpretation [...] 1.025 Ketone neg Bili 1+ Gluc neg X ray : Hip, right Reviewed date:04/11/2025 02:10:57 PM Interpretation:Negative Performing Lab: Notes/Report: Negative X ray : Spine, thoracic spin e Reviewed date:04/10/2025 03:43:28 PM Interpretation: Performing Lab: Notes/Report: ultrasound : thyroid Reviewed date:10/10/2024 01:29:24 PM Interpretation: Performing Lab: Notes/Report: TEN-Vaginal Infection panel Reviewed date:10/09/2024 05:13:16 PM Interpretation:Abnormal Performing Lab: Notes/Report: Abnormal P-Vitamin D 25-Hydroxy Reviewed date:10/10/2024 01:29:24 PM Interpretation: Performing Lab: Notes/Report: Test performed by [facility] , [address], [place] [address] Ramirez Thomason MD, Principal Embedded Software Engineer CLIA: [id number] Vitamin D 25-Hydroxy 16.0 30.0-100.0 ng/mL Interpretation of Vitamin D 25 OH: < 20 ng/mL - Deficiency 20 - 29 ng/mL - Insufficiency 30 - 100 ng/mL - Sufficiency > 100 ng/mL - Super-therapeutic- toxicity may occur above this level. Clinical correlation required. P-TSH Reviewed date:10/10/2024 01:29:24 PM Interpretation: Performing Lab: Notes/Report: Test performed by [facility] [address] , [facility] [address], [place] [address] Ramierz Thomason MD, Principal Embedded Software Engineer CLIA: [id number] TSH 1.84 0.43-5.25 mU/L P-T4 Free (thyroxine) Reviewed date:10/10/2024 01:29:24 PM Interpretation: Performing Lab: Notes/Report: Test performed by [facility] , [facility], [place] [address] Ramirez Thomason MD, Principal Embedded Software Engineer CLIA: [id number] Thyroxine Free (free T4) 1.00 0.86-1.76 ng/dL P-Sed Rate (ESR) Reviewed date:10/10/2024 01:29:24 PM Interpretation: Performing Lab: Notes/Report: Test performed by [facility] , [facility] [address], [place] [address] Ramirez Thomason MD, Principal Embedded Software Engineer CLIA: [id number] Erythrocyte Sedimentation Rate (ESR), Automated 31 <26 mm/hr S-M-Blaamdll Protein (CRP) Reviewed date:10/10/2024 01:29:24 PM Interpretation: Performing Lab: Notes/Report: Test performed by [facility] [address] , [facility], [place] [address] Ramirez Thomason MD, Principal Embedded Software Engineer CLIA: [id number] C-Reactive Protein (CRP) 0.05 <0.50 mg/dL P-Comprehensive Metabolic Pa rickie (CMP) Reviewed date:10/10/2024 01:29:24 PM Interpretation: Performing Lab: Notes/Report: Test performed by [facility] [address] [place] [address] , [address], [place] [address] Ramirez Thomason MD, Principal Embedded Software Engineer CLIA: [id number] Sodium 140 135-145 mmol/L Potassium 4.3 3.5-5.3 [...] Interpretation: Performing Lab: Notes/Report: Test performed by [facility] [address] [place] [address] , [address], [place] [address] Ramirez Thomason MD, Principal Embedded Software Engineer CLIA: [id number] CCP Antibodies <0.5 <0.5-3.0 U/mL P-CBC with Diff plus Absolut e Counts Reviewed date:10/10/2024 01:29:24 PM Interpretation: Performing Lab: Notes/Report: Test performed by [facility] [address] [place] [address] , [address], [place] [address] Ramirez Thomason MD, Principal Embedded Software Engineer CLIA: [id number] WBC 6.7 3.8-11.5 K/uL Red Blood Cell [...] K/uL Absolute Immature Granulocyte 0.02 0.00-0.03 K/uL Urinalysis - Inhouse Reviewed date:10/03/2024 03:15:36 PM Interpretation: Performing Lab: Notes/Report: Color/Clarity yellow/cloudy Leuk Neg Nitrite Neg Urobili 3.2 Protein Neg pH 6.5 Blood Neg Sp. Gr. 1.020 Ketone Neg Bili Neg Gluc Neg P-Basic Metabolic Panel (BMP ) Reviewed date:05/10/2024 08:42:35 AM Interpretation: Performing Lab: Notes/Report: Test performed by [facility] [address] [place] [address] , [address], [place] [address] Ramirez Thomason MD, Principal Embedded Software Engineer CLIA: [id number] Sodium 140 135-145 mmol/L Potassium 3.9 3.5-5.3 mmol/L Chloride 105 97-108 mmol/L CO2 21 22-32 mmol/L Glucose 92 65-99 mg/dL BUN 13 6-20 mg/dL Creatinine 0.85 0.50-1.00 mg/dL Calcium 9.5 8.6-10.4 mg/dL eGFR by Creatinine 89 >59 mL/min/1.73m2 P-T4 Free (thyroxine) Reviewed date:05/10/2024 08:42:35 AM Interpretation: Performing Lab: Notes/Report: Test performed by [facility] [address] [place] [address] , [address], [place] [address] Ramirez Thomason MD, Principal Embedded Software Engineer CLIA: [id number] Thyroxine Free (free T4) 1.09 0.86-1.76 ng/dL P-Thyroid Antibody Panel (TA BS) Reviewed date:05/10/2024 08:42:35 AM Interpretation: Performing Lab: Notes/Report: Test performed by [facility] [address] [place] [address] , [place] [address] Ramirez Thomason MD, Principal Embedded Software Engineer CLIA: [id number] Thyroid Peroxidase Antibody 17 <9-34 IU/mL An elevated Thyroid Peroxidase Antibody should not be used alone to make the diagnosis of autoimmune thyroid disease. A result of <34 IU/mL does not definitively rule out the possibility of autoimmune thyroid disease. Thyroglobulin Antibody 250.0 <10-115.0 IU/mL The test is performed by the [employer] ECLIA methodology. Values obtained with different assay methods or kits cannot be directly compared. P-TSH Reviewed date:05/10/2024 08:42:35 AM Interpretation: Performing Lab: Notes/Report: Test performed by [facility] [address] [place] [address] , [place] [address] Ramirez Thomason MD, Principal Embedded Software Engineer CLIA: [id number] TSH 2.34 0.43-5.25 mU/L ultrasound : thyroid Reviewed date:05/16/2024 10:25:23 AM Interpretation:right thyroid nodule, consider f/u in 6-12 months Performing Lab: Notes/Report: right thyroid nodule, consider f/u in 6-12 months P-Antinuclear Antibodies (AN A) Screen Reviewed date:10/10/2024 01:29:24 PM Interpretation: Performing Lab: Notes/Report: Test performed by [facility] [address] [place] [address] , [address], [place] [address] Ramirez Thomason MD, Principal Embedded Software Engineer CLIA: [id number] Antinuclear Antibodies (ROSARIO) Screen Positive Negative This test is perform ed by Multiplex Bead Immunoassay methodology. Urinalysis - Inhouse Reviewed date:10/25/2024 04:50:35 PM Interpretation: Performing Lab: Notes/Report: Color/Clarity yellow/clear Leuk Neg Nitrite Neg Urobili 3.2 Protein Neg pH 5.0 Blood Neg Sp. Gr. 1.020 Ketone Neg Bili Neg Gluc Neg T-G-Gtpuikxu Protein (CRP), High Sensitivity Reviewed date:11/01/2024 11:56:22 AM Interpretation:Normal Performing Lab: Notes/Report: Test performed by [facility] [address] [place], [place] [address] [place] , [place] [address] Ramirez Thomason MD, Principal Embedded Software Engineer CLIA: [id number] C-Reactive Protein (CRP), High Sensitivity 0.30 <3.01 [...] Interpretation:Normal Performing Lab: Notes/Report: Test performed by [facility] [address] [place], [place] [address] [place] , [place] [address] Ramirez Thomason MD, Principal Embedded Software Engineer CLIA: [id number] Erythrocyte Sedimentation Rate (ESR), Automated 5 <26 mm/hr P-T4 Free (thyroxine) Reviewed date:11/01/2024 11:56:22 AM Interpretation:Normal Performing Lab: Notes/Report: Test performed by [facility] [address] [place] [address] [address], [place] [address] Ramirez Thomason MD, Principal Embedded Software Engineer CLIA: [id number] Thyroxine Free (free T4) 1.09 0.86-1.76 ng/dL P-Thyroid Antibody Panel (TA BS) Reviewed date:11/01/2024 11:56:22 AM Interpretation:Thyroglobulin antibody 234.0 Performing Lab: Notes/Report: Test performed by [facility] [address] [place] [address] [place] [address] Ramirez Thomason MD, Principal Embedded Software Engineer CLIA: [id number] Thyroid Peroxidase Antibody 13 <9-34 IU/mL An [...] Interpretation:Normal Performing Lab: Notes/Report: Test performed by [facility] [address] [place] [address] [place] [address] Ramirez Thomason MD, Principal Embedded Software Engineer CLIA: [id number] TSH 1.94 0.43-5.25 mU/L TEN-Vaginal Infection panel Reviewed date:11/01/2024 11:56:22 AM Interpretation:Abnormal Performing Lab: Notes/Report: Abnormal Holter - 7 day Reviewed date:12/04/2024 03:41:37 PM Interpretation:PVC's and PAC's Performing Lab: Notes/Report: PVC's and PAC's X ray : KUB Reviewed date:11/01/2024 01:33:36 PM Interpretation:No Significant Constipation Performing Lab: Notes/Report: No Significant Constipation HLA-B27 Antigen Reviewed date:10/10/2024 01:29:24 PM Interpretation: Performing Lab: Notes/Report: HLA-B27 Negative Negative INTERPRETIVE INFORMATION: HLA-B27 HLA-B27 is a serologically defined allele of the human HLA-B locus. The presence of the HLA-B27 antigen is strongly associated with ankylosing spondylitis and related disorders. This test was developed and its performance characteristics determined by [facility]. It has not been cleared or approved by the [place] Food and Drug Administration. This test was performed in a CLIA certified laboratory and is intended for clinical purposes. Performed By: [facility] [address] [place] [address] Principal Embedded Software Engineer: Ramón Prakash MD, PhD CLIA Number: [id number] P-Rheumatoid Factor Reviewed date:10/10/2024 01:29:24 PM Interpretation: Performing Lab: Notes/Report: Test performed by [facility] [address] [place] [address] , [address], [place] [address] Ramirez Thomason MD, Principal Embedded Software Engineer CLIA: [id number] Rheumatoid Factor 10.0 <14.1 IU/mL Ultrasound : Breast, right Reviewed date:10/17/2024 10:13:46 AM Interpretation: Performing Lab: Notes/Report: Mammogram Reviewed date:10/17/2024 10:13:01 AM Interpretation: Performing Lab: Notes/Report: Mammogram Reviewed date:10/17/2024 10:13:01 AM Interpretation: Performing Lab: Notes/Report: ultrasound : thyroid Reviewed date:03/28/2025 11:58:00 AM Interpretation:Stable, 6-12 Mth F/U Performing Lab: Notes/Report: Stable, 6-12 Mth F/U Urinalysis - Inhouse Reviewed date:07/05/2024 01:29:14 PM Interpretation: Performing Lab: Notes/Report: Color/Clarity dark yellow/clear Leuk Neg Nitrite Neg Urobili 33 Protein Neg pH 6.5 Blood Neg Sp. Gr. 1.025 Ketone Trace Bili 1+ Gluc Neg TEN-Vaginal Infection panel Reviewed date:07/10/2024 09:09:30 AM Interpretation:Abnormal Performing Lab: Notes/Report: Abnormal Reason For Referral Diagnosis 1 Rheumatoid arthritis involving multiple sites, unspecified whether rheumatoid factor present (M06.9) [facility] Referring Provider First Name Sally Referring Provider Last Name Tasha Referring Provider Speciality Physician Railroad Yard Worker Referred Provider Rheumatology, . Referred Provider Specialty Rheumatology General Notes Sally Cordova 05/09 2:03:24 PM > [facility] to go [facility] RheumatologyIman Brynn 05/13/2024 11:59:53 AM > faxed to [facility] Scheduling Referral Priority Routine Reason patient needs to see endocrinology Diagnosis 1 Thyroid nodule (E04. 1) [facility] Referring Provider First Name Sally Referring Provider Last Name Tasha Referring Provider Speciality Physician Railroad Yard Worker Referred Provider Specialty Endocrinolog y General Notes Radha Valerio 024 1:18:17 PM > faxed to [facility] Endocrinology, Radha Valerio 05/20/2024 1:25:55 PM > [facility] 05/22/2024 at 10:00am Referral Priority Routine Diagnosis 1 Constipation, unspec ified constipation type (K59.00) [facility] Referring Provider First Name Sally Referring Provider Last Name Tasha Referring Provider Speciality Physician Railroad Yard Worker Referred Provider BRIDGETTE CASILLAS Referred Provider Specialty Gastroentero logy General Notes Radha Valerio 024 8:38:27 AM > faxed to [facility] GastroenterologyIman Brynn 06/17/2024 9:54:40 AM > spoke with Rudy; resent faIman simpson Brynn 06/19/2024 11:09:11 AM > confirmed order received with Rudy Referral Priority Routine Reason Thyroid enlargement Diagnosis 1 Thyromegaly (E04.9) Diagnosis 2 Enlarged thyroid (E0 4.9) Diagnosis 3 Thyroid nodule (E04. 1) [facility] Referring Provider First Name Sally Referring Provider Last Name Tasha Referring Provider Speciality Physician Railroad Yard Worker [facility] Ref[facility] Address [address] [place] [address], [address],[place], [id number], Referred Provider Specialty ENT General Notes Radha Valerio 2024 01:17:24 PM > [facility] to [facility] ENTIman Brynn 10/11/2024 08:51:34 AM > 10/15/2024 Referral Priority Routine Medications Medication SIG (Take, Route, Frequency, Duration) Notes Start Date End Date Status Meclizine HCl 25 mg TAKE ONE TABLET BY M OUT THREE TIMES DAILY NEEDED; Duration: 7 Active DULoxetine HCl 60 mg 1 capsule orally on ce a day; Duration: 30 days Active Vitamin D (Ergocalciferol) 1.25 MG (67230 UT) 1 capsule Orally once a week; Duration: 30 days Active Meloxicam 7.5 MG 1 tablet/;p[ =========- Orally twice a day; Duration: 30 days 04/08/2025 Active Omeprazole 40 MG 1 capsule 30 minutes before morning meal Orally Once a day; Duration: 90 days Active tiZANidine HCl 2 MG 1 tablet as needed O rally Three times a day; Duration: 30 day(s) Active Promethazine HCl 25 mg TAKE ONE TABLET B Y MOUTH EVERY 6 HOURS NEEDED MAY CAUSE DROWSINESS; Duration: 8 Active Cyclobenzaprine HCl 10 MG 1 tablet Orall y 3 times a day, prn 03/29/2025 Active Ondansetron 4 mg DISSOLVE ONE TABLET UNDER THE TONGUE THREE TIMES DAILY NEEDED; Duration: 10 Active Humira (2 Pen) 40 MG/0.4ML INJECT 40 MG SUBCUTANEOUSLY EVERY 2 WEEKS; Duration: 28 Active Linzess 290 MCG 1 capsule at least 3 0 minutes before the first meal of the day on an empty stomach Orally Once a day; Duration: 30 days 02/18/2025 Active Immunizations Vaccine Route Administration Date Status Comme nts COVID 19 Moderna Unknown 05/10/2021 Administered xFluzone (6mos and older)-trivalent Unknown 04/14/2010 Administered xFluzone (6mos and older)-trivalent Unknown 06/16/2014 Administered Problems Problem Type SNOMED Code ICD Code Onset Dates Problem Status W/U Status Risk Notes Problem Gastroesophageal reflux disease (518363787) GERD (gastroesophage al reflux disease) (K21.9) Active confirmed Problem Vitamin D deficiency (45034109) Vitamin D deficiency (E55.9) Active confirmed Problem Hypertension (40697370) Hypertension (I10) Active confirmed Problem Goiter (2952793) Enlarged thyroid (E04.9) Active confirmed Problem Mixed anxiety and depressive disorder (280218849) Depression with anxiety (F41.8) Active confirmed Problem Acute constipation (661746056) Acute constipation (K59.00) Active confirmed Problem Thyromegaly (7044943) Thyromegaly (E04.9) Active confirmed Problem Right bundle branch block (25087823) Right bundle branch block (I45.10) Active confirmed Problem Obesity (267512986) Obesity (BMI 30-39.9) (E66.9) Active confirmed Problem Thyroid nodule (111485967) Thyroid nodule (E04.1) Active confirmed Problem Constipation (53825917) Constipation, unspecified constipation type (K59.00) Active confirmed Problem Migraine (65855125) Migraine without status migrainosus, not intractable, unspecified migraine type (G43.909) Active confirmed Problem 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 Problem Fibrocystic breast changes (19427096) Fibrocystic changes of right breast (N60.11) Active confirmed Problem Acute back pain with sciatica (231797508) Acute back pain with sciatica (M54.40) Active confirmed Problem Obesity (198747622) Non morbid obesity (E66.9) Active confirmed Problem Hematuria syndrome (85591995) Hematuria, unspecified type (R31.9) Active confirmed Problem Seasonal allergic rhinitis (725751726) Seasonal allergic rhinitis, unspecified trigger (J30.2) Active confirmed Problem Rheumatoid arthritis (06048394) Rheumatoid arthritis involving multiple sites, unspecified whether rheumatoid factor present (M06.9) Active confirmed Vital Signs Heart Rate 100 /min 04/08/2025 Blood pressure diastolic 78 mm Hg 04/08/2025 Height 67 in 04/08/2025 Blood pressure systolic 120 mm Hg 04/08/2025 Weight 170 lbs 04/08/2025 BMI 26.62 kg/m2 04/08/2025 Encounters Encounter Location Date Provider Diagnosis [facility] [facility] [facility] [address] [place] [id number] 05/09/2024 Sally Tasha Thyroid nodule E04.1 and Rheumatoid arthritis involving multiple sites, unspecified whether rheumatoid factor present M06.9 [facility] [facility] [address] [place] [id number] 07/05/2024 Sally Tasha Acute vaginitis N76. 0 [facility] [facility] [address] [place], [place] [id number] 08/20/2024 Maggy Quiroz Breast pain, right N64.4 and Fibrocystic changes of right breast N60.11 [facility] [facility] [address] [place], [place] [id number] 10/03/2024 Sally Tasha Palpitations R00.2 ; Acute vaginitis N76.0 ; Thyroid nodule E04.1 ; Vitamin D deficiency E55.9 and Rheumatoid arthritis involving multiple sites, unspecified whether rheumatoid factor present M06.9 [facility] [facility] [address] [place], [place] [id number] 10/25/2024 Sally Crowdy Thyroid nodule E04.1 ; Acute vaginitis N76.0 ; Rheumatoid arthritis involving multiple sites, unspecified whether rheumatoid factor present M06.9 and BMI 29.0-29.9,adult Z68.29 [facility] [address] [place], [place] [id number] 12/26/2024 Sally Crowdy Rheumatoid arthritis involving multiple sites, unspecified whether rheumatoid factor present M06.9 ; Thyroid nodule E04.1 ; Fatigue, unspecified type R53.83 ; Palpitations R00.2 ; Vitamin D deficiency E55.9 and Body aches R52 [facility] [address] [place], [place] [id number] 02/17/2025 Maggy Quiroz Abdominal pain R10.9 and Acute constipation K59.00 [facility] [address] [facility] [address] [place], [place] [id number] 03/27/2025 Sally Crowdy Muscle spasm of back M62.830 [facility] [address] [place], [place] [id number] 04/08/2025 Maggy Quiroz Acute back pain with sciatica M54.40 [facility] [address] [place], [place] [id number] 04/14/2025 Maggy Quiroz [facility] [address] [facility] [address] [place] [id number] 04/15/2024 Maggy Quiroz [facility] [address] [place], [place] [id number] 05/15/2024 Sally Crowdy [facility] [address] [place], [place] [id number] 05/31/2024 Sally Crowdy [facility] [address] [place], [place] [id number] 06/12/2024 Sally Crowdy Constipation, unspecified constipation type K59.00 [facility] [address] [facility] [address] [place] [id number] 06/21/2024 Sally Crowdy [facility] [address] [place] [id number] 07/10/2024 Sally Crowdy [facility] [address] [place] [id number] 07/29/2024 Sally Crowdy [facility] [address] [place] [id number] 08/02/2024 Sally Crowdy [facility] [address] [place], [place] [id number] 08/20/2024 Sally Crowdy [facility] [address] [place] [id number] 08/29/2024 Sally Crowdy [facility] [address] [place] [id number] 09/11/2024 Sally Crowdy [facility] [address] [place], [place] [id number] 09/28/2024 Sally Crowdy [facility] [address] [place] [id number] 10/04/2024 Sally Crowdy [facility] [address] [place] [id number] 10/09/2024 Sally Crowdy [facility] [address] [place] [id number] 10/10/2024 Sally Crowdy [facility] [address] [place] [id number] 10/24/2024 Sally Crowdy [facility] [address] [place], [place] [id number] 10/30/2024 Sally Crowdy Constipation, unspecified constipation type K59.00 [facility] [address] [place] [id number] 11/01/2024 Sally Crowdy [facility] [address] [place], [place] [id number] 12/16/2024 Sally Crowdy [facility] [address] [place], [place] [id number] 01/15/2025 Sally Crowdy [facility] [address] [place], [place] [id number] 02/07/2025 Sally Crowdy [facility] [address] [place], [place] [id number] 02/18/2025 Maggy Gabriella [facility] [address] [place], [place] [id number] 03/18/2025 Sally Crowdy [facility] [address] [place], [place] [id number] 03/29/2025 Sally Crowdy [facility] [address] [place], [place] [id number] 03/29/2025 Sally Crowdy [facility] [address] [place], [place] [id number] 03/31/2025 Sally Crowdy [facility] [address] [place], [place] [id number] 04/10/2025 Maggy Quiroz Assessments Encounter Date Diagnosis (ICD Code) Assessment [...] Date X ray : Spine, lumbar 04/08/2025 MRI : Spine, Thoracic, without contrast 04/11/2025 P-ROSARIO 03/21/2024 P-ROSARIO 10/03/2024 P-Influenza A/B, Covid 19, RSV 3 MRI : Lumbar Spine without contrast 04/02 Insurance Providers Payer Name Payer Address Payer Phone Subscriber Number Group Number Insured Name Patient Relationship to Insured Coverage Start Date Coverage End Date [employer] [facility] [address] [place], [place] [id number] TAMMY RAUSCH Self - patient is the [...] Ablation 12/2012 Colonoscopy 2014 Hysterectomy- Dr. Perea, [facility] 11/30/2014 Laperoscopy 11/19/2019 Colonoscopy, 1 Polyp Removed, Repeat 3 Y ears 02/22/2023 Thyroid Nodule Biopsy 10/22/2024 Hospitalization History Reason Date(Month/Year) [facility] Abdominal Pain, Vomiting- [facility] 12/29-07/2022 Abdominal Pain, Vomiting- [facility] 023 Abdominal Pain, Vomiting- [facility] 023 Elevated BP- [facility] 07/15/2021 Aura Migraine- [facility] 03/13/2020 Abdominal Pain, Constipation- [facility] 12/17- Migraine- [facility] 06/20/2018 Migraine, Lumbar Puncture- [facility] 04/04-2017
--- OUTSIDE RECORDS SUMMARY | 2025-04-15 07:36 | XMS_ITS | Clinical Summary ---
Author Organization Healthcare Address [address] [place] [address] Care Team Providers Care Through Freight Engineer Name Role Phone Pcp, No Primary Care [...] 3 - 19+ 3-dose series) 03/25/2016 02/26/2016 [id number] Vaccine (2 - season) 2025 05/10/2021 UKY-Influenza [...] patient's age to complete this topic [facility] MED[facility] Care Teams Through Freight Engineer Relationship Specialty Start Date End Date Pcp, [place] [address] PCP - General Family Medicine 10/14/21
[2025-04-15 07:41] LABS: Bilirubin,Urine Negative (Negative); Color,Urine YELLOW (Yellow); Glucose,Urine (UA) Negative (Negative); Ketones,Urine Negative (Negative); Leukocyte Esterase,Urine Negative (Negative); PH,Urine 6.0 (5.0-8.5); Protein,Urine Negative (Negative); Specific Gravity, Urine 1.020 (1.005-1.030); Urobilinogen,Urine 1.0 EU/dl (0.2)
--- NOTE | 2025-04-15 07:44 | CT_ITS ---
PROCEDURE INFORMATION: Exam: CT Abdomen And Pelvis With Contrast Exam date and time: 04/15/2025 8:27 AM Age: 39 years old Clinical indication: Abdominal pain; Localized; Right lower quadrant (rlq); Additional info: Rlq pain, nausea TECHNIQUE: Imaging protocol: Computed tomography of the abdomen and pelvis with contrast. Radiation optimization: All CT scans at this facility use at least one of these dose optimization techniques: automated exposure control; mA and/or kV adjustment per patient size (includes targeted exams where dose is matched to clinical indication); or iterative reconstruction. Contrast material: ISOVUE; Contrast volume: 75 ml; Contrast route: IV; COMPARISON: CT ABDOMEN PELVIS W CON 12/17/2023 8:26 PM FINDINGS: Liver: Normal. No mass. Gallbladder and biliary ducts: Gallbladder is surgically removed. No calcified stones. No ductal dilation. Pancreas: Normal. No ductal dilation. Spleen: Normal. No splenomegaly. Adrenal glands: Normal. No mass. Kidneys and ureters: Normal. No hydronephrosis. Stomach and bowel: Twisting of the cecum suspicious for volvulus Appendix: No evidence of appendicitis. Intraperitoneal space: Unremarkable. No free air. No significant fluid collection. Vasculature: Unremarkable. No abdominal aortic aneurysm. Lymph nodes: Unremarkable. No enlarged lymph nodes. Urinary bladder: Unremarkable as visualized. Reproductive: Uterus is surgically absent.. Bones/joints: Unremarkable. No acute fracture. Soft tissues: Unremarkable. IMPRESSION: Twisting of the cecum suspicious for volvulus. Surgical consultation is recommended
--- NOTE | 2025-04-15 07:46 | HMH.EDGENADL ---
Discharge Plan Disposition Patient Disposition: Admitted Clinical Impressions Clinical Impression: Cecal volvulus Discharge ED Provider: Fina Nelson General Adult HPI General Chief complaint: Abdominal Pain Stated complaint: R lower abd. pain Time Seen by Provider: 04/15/25 07:31 History of Present Illness HPI narrative: This patient is a 39-year-old female with a history of hypothyroidism, chronic constipation, prior cholecystectomy, prior hysterectomy, prior left salpingectomy secondary to ectopic presenting to the emergency department for evaluation with concern for right lower quadrant abdominal pain. Patient states that she woke up this morning around 5:30 AM with periumbilical pain that was vague, she thought it was likely gas. She states that the pain then migrated to her right lower quadrant and became severe. She notes nausea but no vomiting. She states that she tried to take her medicine with water this morning and it stayed down, but she was not able to try to eat anything at all. No other concerns or complaints such as recent urinary symptoms, vaginal discharge, or acute changes to bowel movements. Patient reports a longstanding history of chronic constipation and reports that she saw GI yesterday and was prescribed a new medication, Ibsrela, which she started yesterday. Related Data Home Medications ?Medication ?Instructions ?Recorded ?Confirmed duloxetine 60 mg capsule,delayed 60 mg PO DAILY mood 11/13/22 04/14/25 release adalimumab 40 mg/0.4 mL See Rx Instructions .Route 02/06/23 04/14/25 subcutaneous pen kit (Maria De Jesus(CF) .COMPLEX Rheumatoid Arthritis Pen) omeprazole 40 mg capsule,delayed 40 mg PO DAILY 11/05/23 04/14/25 release meclizine 25 mg tablet 25 mg PO DAILY PRN Dizziness 01/09/24 04/14/25 tizanidine 2 mg tablet 2 mg PO TID 01/09/24 04/14/25 cyclobenzaprine 10 mg tablet 10 mg PO TID PRN 04/14/25 04/14/25 ondansetron 4 mg disintegrating 4 mg translingual TID PRN 04/14/25 04/14/25 tablet promethazine 25 mg tablet 25 mg PO Q6H PRN 04/14/25 04/14/25 Allergies Allergy/AdvReac Type Severity Reaction Status Date / Time indomethacin Allergy Severe Anaphylaxis Verified 04/14/25 14:04 cefaclor (From CECLOR) Allergy Unknown Unknown Verified 04/14/25 14:04 allergy reaction sulfamethoxazole (From Allergy Unknown Unknown Verified 04/14/25 14:04 BACTRIM) allergy reaction trimethoprim (From BACTRIM) Allergy Unknown Unknown Verified 04/14/25 14:04 allergy reaction PFSH PFSH Disclaimer: The information contained in this section may have been updated after the patient was seen, as this information can be updated by other users. Medical History Acute bronchopneumonia Back pain Body mass index (BMI) of 35.0 to 35.9 in adult Headache Hyperlipidemia Neck pain Obesity with body mass index (BMI) of 35.0 to 39.9 without comorbidity Sinusitis Viral bronchitis Viral gastroenteritis Vitamin D deficiency Anxiety Hypertension Irritable bowel syndrome with constipation Rheumatoid arthritis Rheumatoid factor positive Migraines Endometriosis Depression Ankylosing spondylitis Hyperlipidemia (~11/22/17) Vitamin D deficiency (~11/22/17) Obesity (BMI 35.0-39.9 without comorbidity) Sinusitis Surgical History History of colonoscopy History of tubal ligation History of laparotomy Hx of dilation and curettage History of hysterectomy History of cholecystectomy Family History Other Cancer Coronary artery disease Hypertension No significant family history Stroke 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 Smoking Status: Never smoker alcohol intake: never substance use type: denies use current occupational status: employed Travel in the last 8 weeks?: None adopted: No caregiver/support person: No household members: spouse and children housing: house lives independently: No marital status: education level: college service: No retirement: No caffeine: Yes special sandi needs: No agree to transfusion: No do you feel safe at home: Yes victim of physical abuse: No victim of emotional abuse: No victim of sexual abuse: No would you like helpful sources: No Have you lived/traveled outside [place] in past 30 days?: No Contact w/someone who lives/traveled outside US past 30 days?: No Exposure to someone with infectious disease in past 14 days?: No Do you have a fever (greater than 100.4 F or 38 C)?: No Have you tested positive for COVID-19?: No Exposed to someone with COVID-19 in past 14 days?: No Do you have a sore throat?: No Do you have a cough?: No Do you have any weakness?: No Do you have any diarrhea?: No Are you experiencing any unusual bleeding?: No Do you have any muscle aches/pain?: No Do you have any abdominal pain?: No Are you experiencing loss of taste or smell?: No Other Medical History Have you received the Flu Vaccine for this season: No Have you received the Pneumonia Vaccine: No ROS Obtained: Yes All systems reviewed & no additional complaints except as documented Physical Exam General General appearance: alert Comment: Uncomfortable appearing, tearful Head Head exam: atraumatic and normocephalic Eye Eye exam: Present normal appearance and PERRL ENT ENT exam: Present normal exam and normal oropharynx Neck Neck exam: Present normal inspection Chest Chest inspection: Present normal inspection and symmetric chest wall rise; Absent tenderness Respiratory Respiratory exam: Present normal lung sounds bilaterally; Absent respiratory distress, wheezes, stridor or accessory muscle use Cardiovascular Cardiovascular exam: Present normal rhythm; Absent regular rate (Tachycardic) Abdominal Exam Abdominal exam: Present soft and tenderness (Right lower quadrant); Absent distention, guarding, rebound or rigidity Extremities Exam Extremities exam: Present normal inspection, full ROM and normal capillary refill; Absent tenderness or edema Back Exam Back exam: Present normal inspection and full ROM; Absent tenderness Neurological Exam Neurological exam: Present alert, oriented X3, CN II-XII intact and normal gait; Absent motor sensory deficit Psychiatric Psychiatric exam: Present anxious Skin Skin exam: Present warm and dry Medical Decision Making Medical Records Medical records reviewed: Yes I reviewed the patient's medical records. Screening: Per USPSTF and CDC recommendations, given the prevalence of disease in our region, it is our hospital?s policy to screen for HIV and viral Hepatitis for all patients aged 18 and over and those with ongoing risk factors. Ray Inquiry Pt receiving controlled substance: No Vital Signs: 04/15/25 07:33 04/15/25 07:42 04/15/25 07:45 Temperature 98.3 F Temperature Source Oral Pulse Rate 103 H 91 H Pulse Rate [Left Radial] 92 H Respiratory Rate 20 Blood Pressure 106/83 L 113/74 Blood Pressure [Right Arm] 113/74 Blood Pressure Mean Blood Pressure Mean [Right Arm] 87 Blood Pressure Source [Right Arm] Blood Pressure Position [Right Arm] 02 Sat by Pulse Oximetry 100 100 99 Oxygen Delivery Method Room Air Room Air Room Air 04/15/25 08:00 04/15/25 08:15 04/15/25 08:42 Temperature Temperature Source Pulse Rate 93 H 91 H 91 H Pulse Rate [Left Radial] Respiratory Rate Blood Pressure 111/79 123/83 129/83 Blood Pressure [Right Arm] Blood Pressure Mean 95 Blood Pressure Mean [Right Arm] Blood Pressure Source [Right Arm] Blood Pressure Position [Right Arm] 02 Sat by Pulse Oximetry 100 100 99 Oxygen Delivery Method Room Air Room Air 04/15/25 08:45 04/15/25 09:00 04/15/25 09:15 Temperature Temperature Source Pulse Rate 91 H 92 H 88 Pulse Rate [Left Radial] Respiratory Rate Blood Pressure 130/83 133/87 136/96 H Blood Pressure [Right Arm] Blood Pressure Mean 90 102 106 Blood Pressure Mean [Right Arm] Blood Pressure Source [Right Arm] Blood Pressure Position [Right Arm] 02 Sat by Pulse Oximetry 99 99 100 Oxygen Delivery Method 04/15/25 09:30 04/15/25 09:51 04/15/25 10:01 Temperature Temperature Source Pulse Rate 87 93 H 96 H Pulse Rate [Left Radial] Respiratory Rate Blood Pressure 145/102 H 128/86 131/93 H Blood Pressure [Right Arm] Blood Pressure Mean 111 Blood Pressure Mean [Right Arm] Blood Pressure Source [Right Arm] Blood Pressure Position [Right Arm] 02 Sat by Pulse Oximetry 100 100 100 Oxygen Delivery Method Room Air Room Air 04/15/25 10:07 04/15/25 10:31 Temperature 98.0 F 98.5 F Temperature Source Oral Pulse Rate 86 Pulse Rate [Left Radial] 51 L Respiratory Rate 18 20 Blood Pressure 131/93 H Blood Pressure [Right Arm] 135/61 Blood Pressure Mean Blood Pressure Mean [Right Arm] 85 Blood Pressure Source [Right Arm] Automatic Cuff Blood Pressure Position [Right Arm] Sitting 02 Sat by Pulse Oximetry 98 Oxygen Delivery Method Room Air Room Air Lab Data Lab results reviewed: Yes I reviewed the patient's lab results. Lab Results 04/15/25 07:32: Urine Color Yellow, Urine Appearance Clear, Urine pH 6.0, Ur Specific Fowler 1.020, Urine Protein Negative, Urine Glucose (UA) Negative, Urine Ketones Negative, Urine Blood Negative, Urine Nitrate Negative, Urine Bilirubin Negative, Urine Urobilinogen 1.0, Ur Leukocyte Esterase Negative, Urine RBC Occasional, Urine WBC None, Ur Squamous Epith Cells 5-10, Urine Bacteria 1+ 04/15/25 07:42: WBC 4.8, RBC 4.61, Hgb 13.5, Hct 40.1, MCV 87.0, MCH 29.3, MCHC 33.7, RDW 11.9, Plt Count 272, MPV 9.3, Neut % (Auto) 62.9, Lymph % (Auto) 26.9, [place] % (Auto) 7.9, Eos % (Auto) 1.7, Baso % (Auto) 0.4, Neut # (Auto) 3.0, Lymph # (Auto) 1.3, [place] # (Auto) 0.4, Eos # (Auto) 0.1, Baso # (Auto) 0.0, Sodium 137, Potassium 4.3, Chloride 106, Carbon Dioxide 25, Anion Gap 10.3, BUN 12, Creatinine 0.80, Estimated Creat Clear 114, Estimated GFR 79, Est GFR ( Amer) 96, Glucose 91, Calcium 8.9, Total Bilirubin 1.2, AST 24, ALT 21, Alkaline Phosphatase 61, Total Protein 7.7, Albumin 4.3, Globulin 3.4 H, Albumin/Globulin Ratio 1.3, Lipase 150 04/15/25 07:42 04/15/25 07:42 Orders (Tests/Meds): ED MEDICATIONS Discontinued Medications Generic Name Dose Route Start Last Admin Trade Name Timiq PRN Reason Stop Dose Admin Acetaminophen 1,000 mg 04/15/25 07:46 04/15/25 07:54 Acetaminophen 1,000mg/100ml Vial IV 04/15/25 07:47 1,000 mg ONCE ONE Administration Hydromorphone HCl 0.5 mg 04/15/25 10:04 04/15/25 10:29 Hydromorphone 2mg/Ml Syringe IV 04/15/25 10:05 0.5 mg ONCE ONE Administration Lactated Ringer's 1,000 mls @ 999 mls/hr 04/15/25 07:45 04/15/25 09:52 Lactated Ringer's 1000 Ml Bag IV 04/15/25 08:45 Infused .Q1H1M ONE Infusion Iopamidol 75 ml 04/15/25 08:36 04/15/25 08:37 Iopamidol-370 (76%);100ml Bottle IV 04/15/25 08:37 75 ml ONCE ONE Administration Ketorolac Tromethamine 15 mg 04/15/25 09:09 04/15/25 09:17 Ketorolac 15mg/Ml Vial IV 04/15/25 09:10 15 mg ONCE ONE Administration Morphine Sulfate 4 mg 04/15/25 07:45 04/15/25 07:54 Morphine 4mg/Ml Syringe IV 04/15/25 07:46 4 mg ONCE ONE Administration Ondansetron HCl 4 mg 04/15/25 07:45 04/15/25 07:54 Ondansetron 4mg/2ml Vial IV 04/15/25 07:46 4 mg ONCE ONE Administration Sodium Chloride 10 ml 04/15/25 08:36 04/15/25 08:37 Sodium Chloride 0.9% 10ml Syr (Rad Only) IV 04/15/25 08:37 10 ml ONCE ONE Administration ORDERS Category Date Time Status CT abdomen pelvis w con Stat Cat Scan 04/15/25 07:44 Completed Consult to General Surgery [CONS] Stat Cons 04/15/25 09:50 Ordered Complete Blood Count Auto Diff Stat Lab 04/15/25 07:42 Completed Comprehensive Metabolic Panel Stat Lab 04/15/25 07:42 Completed Lipase Stat Lab 04/15/25 07:42 Completed UA [Urinalysis and Microscopic] Stat Lab 04/15/25 07:32 Completed Medical Decision Narrative: In summary, this patient is a 39-year-old female presenting to the Emergency Department for evaluation of right lower quadrant abdominal pain. Differential diagnoses considered include but are not limited to appendicitis, ovarian cyst, ovarian torsion, colitis, constipation. Ruling out the most morbid conditions drove assessment. It should be noted patient's history includes chronic constipation, hypothyroidism, which may or may not be at goal therapy. This complicates all aspects of care by increasing patient's risk for morbidity. I reviewed patient's past medical records and noted evaluation by GI yesterday as detailed in HPI. On exam, the patient is sitting upright in bed uncomfortable appearing, tearful. She is mildly tachycardic but otherwise vitals are reassuring on cardiac telemetry. Workup included CBC, CMP, lipase, urinalysis, CT abdomen pelvis with IV contrast. She was given a bolus of IV fluids as well as IV morphine, Zofran, and acetaminophen for symptomatic improvement. I independently interpreted CT scan prior to the radiologist read and noted dilated bowel in the pelvis with air-fluid levels. Please see their read for final interpretation. They noted concern for cecal volvulus. Labs were obtained that demonstrated reassuring CBC with no significant leukocytosis or anemia, reassuring chemistry, urine did slightly contain no squamous cells but is not concerning for infection.. On reassessment, patient had minimal improvement after administration of interventions above. She still uncomfortable. Given this, added on IV Toradol. This helped a little bit, but she still is in a lot of pain, so added on IV Dilaudid. Given concerns for cecal volvulus, I had an interactive discussion with Dr Victor who evaluated the patient and plans to take the patient to the OR. I then reached out to Dr. Dior for potential admission. The patient was taken to the OR/admitted in stable condition Critical Care Critical Care Time Critical Care Time: No
[2025-04-15 07:48] LABS: Bacteria,Urine 1+ /lpf; RBC,Urine Occasional #/hpf (0-3)
[2025-04-15 07:52] LABS: Hematocrit 40.1 % (37.0-47.0); Hemoglobin 13.5 g/dL (12.2-16.2); Immature Granulocytes % 0.2 %; Mean Corpuscular HGB Conc 33.7 g/dL (31.8-35.4); Mean Corpuscular Hemoglobin 29.3 pg (27.0-31.2); Mean Corpuscular Volume 87.0 fl (81-99); Nucleated Red Blood Cells % 0 %; Platelet Count 272 K/mm3 (142-424); Red Blood Count 4.61 M/mm3 (4.20-5.40); Red Cell Distribution Width-SD 37.9 fL; White Blood Count 4.8 K/mm3 (4.8-10.8)
[2025-04-15] MEDS: ACETAMINOPHEN 1,000MG/100ML VIAL 1000 MG IV (07:54)
[2025-04-15] MEDS: MORPHINE 4MG/ML SYRINGE 4 MG IV (07:54)
[2025-04-15] MEDS: ONDANSETRON 4MG/2ML VIAL 4 MG IV ×3 (07:54→16:41)
[2025-04-15] MEDS: LACTATED RINGERS 1000ML 1,000 ML 999 ML IV (07:54)
[2025-04-15 07:59] LABS: Albumin Level 4.3 g/dl (3.5-5.0); Chloride 106 mmol/L (98-107); Potassium 4.3 mmoL/L (3.5-5.1); Sodium 137 mmol/L (136-145)
[2025-04-15 08:02] LABS: Alanine Aminotransferase 21 U/L (12-78); Albumin/Globulin Ratio 1.3 (1.1-1.8); Alkaline Phosphatase 61 U/L (38-126); Anion Gap 10.3 mEq/L (5-15); Aspartate Amino Transferase 24 U/L (14-36); Bilirubin,Total 1.2 mg/dl (0.2-1.3); Blood Urea Nitrogen 12 mg/dl (7-17); Carbon Dioxide 25 mmol/L (22.0-30.0); Creatinine Clearance Estimated 114 mL/min (50-200); Creatinine,Serum 0.80 mg/dl (0.52-1.04); Estimated Glomerular Filt Rate 79 ml/min (>60); GFR (African American) 96 ML/MIN (>60); Globulin 3.4 g/dL (1.3-3.2); Lipase 150 U/L (23-300); Total Protein,Serum 7.7 g/dl (6.3-8.2)
[2025-04-15 08:03] LABS: Calcium 8.9 mg/dl (8.4-10.2); Glucose 91 mg/dl (74-100)
[2025-04-15] MEDS: SODIUM CHLORIDE 0.9% 10ML SYR (RAD ONLY) 10 ML IV (08:37)
[2025-04-15] MEDS: IOPAMIDOL-370 (76%);100ML BOTTLE 75 ML IV (08:37)
[2025-04-15] MEDS: KETOROLAC 15MG/ML VIAL 15 MG IV ×2 (09:17→18:36)
--- NOTE | 2025-04-15 09:31 | PC.NURSE ---
dr calloway paged surgery clerical receptionist
--- NOTE | 2025-04-15 09:49 | PC.NURSE ---
surgeron electronic security technician coming to ER to evaluate patient
--- NOTE | 2025-04-15 10:19 | EXP.SURG.CON ---
History of Present Illness *Admission Date: 04/15/25 *Reason for visit:: Abdominal pain *History of present illness: Patient is a 39-year-old female with a history of chronic constipation. She does take MiraLAX daily. She has tried and previously failed Linzess, Trulance, enemas, suppositories, magnesium citrate, probiotics, fiber supplementation, and Dulcolax. She has had previous regular colonoscopies with last colonoscopy revealing a single polyp in [address] Sales. She had seen gastroenterology as an outpatient yesterday on 04/14/2025. Today she had acute onset of severe right lower quadrant abdominal pain. She immediately presented to the emergency department. She arrived appearing uncomfortable and tearful with tachycardia. She underwent thorough evaluation including CT scan of the abdomen pelvis which revealed twisting of the cecum suspicious for volvulus and surgical consultation was recommended. Surgery was contacted. Imaging was reviewed. It appeared somewhat atypical for classic cecal volvulus and therefore the patient was evaluated. She did have some morphine but continued to have severe abdominal pain. [facility] Disclaimer: The information contained in this section may have been updated after the patient was seen, as this information can be updated by other users. Medical History Acute bronchopneumonia Back pain Body mass index (BMI) of 35.0 to 35.9 in adult Headache Hyperlipidemia Neck pain Obesity with body mass index (BMI) of 35.0 to 39.9 without comorbidity Sinusitis Viral bronchitis Viral gastroenteritis Vitamin D deficiency Anxiety Hypertension Irritable bowel syndrome with constipation Rheumatoid arthritis Rheumatoid factor positive Migraines Endometriosis Depression Ankylosing spondylitis Hyperlipidemia (~11/22/17) Vitamin D deficiency (~11/22/17) Obesity (BMI 35.0-39.9 without comorbidity) Sinusitis Surgical History History of colonoscopy History of tubal ligation History of laparotomy Hx of dilation and curettage History of hysterectomy History of cholecystectomy Family History Other Cancer Coronary artery disease Hypertension No significant family history Stroke 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 Smoking Status: Never smoker alcohol intake: never substance use type: denies use current occupational status: employed Travel in the last 8 weeks?: None adopted: No caregiver/support person: No household members: spouse and children housing: house lives independently: No marital status: education level: college service: No halfway: No caffeine: Yes special sandi needs: No agree to transfusion: No do you feel safe at home: Yes victim of physical abuse: No victim of emotional abuse: No victim of sexual abuse: No would you like helpful sources: No Have you lived/traveled outside [place] in past 30 days?: No Contact w/someone who lives/traveled outside US past 30 days?: No Exposure to someone with infectious disease in past 14 days?: No Do you have a fever (greater than 100.4 F or 38 C)?: No Have you tested positive for COVID-19?: No Exposed to someone with COVID-19 in past 14 days?: No Do you have a sore throat?: No Do you have a cough?: No Do you have any weakness?: No Do you have any diarrhea?: No Are you experiencing any unusual bleeding?: No Do you have any muscle aches/pain?: No Do you have any abdominal pain?: No Are you experiencing loss of taste or smell?: No Meds Home Medications and Allergies Home Medications ?Medication ?Instructions ?Recorded ?Confirmed ?Type duloxetine 60 mg capsule,delayed 60 mg PO DAILY mood 11/13/22 04/14/25 History release adalimumab 40 mg/0.4 mL See Rx Instructions .Route 02/06/23 04/14/25 History subcutaneous pen kit ([facility] De Jesus([facility]) .COMPLEX Rheumatoid Arthritis Pen) omeprazole 40 mg capsule,delayed 40 mg PO DAILY 11/05/23 04/14/25 History release meclizine 25 mg tablet 25 mg PO DAILY PRN Dizziness 01/09/24 04/14/25 History tizanidine 2 mg tablet 2 mg PO TID 01/09/24 04/14/25 History cyclobenzaprine 10 mg tablet 10 mg PO TID PRN 04/14/25 04/14/25 History ondansetron 4 mg disintegrating 4 mg translingual TID PRN 04/14/25 04/14/25 History tablet promethazine 25 mg tablet 25 mg PO Q6H PRN 04/14/25 04/14/25 History New Prescriptions to Start Prescriptions: Allergies Allergy/AdvReac Type Severity Reaction Status Date / Time indomethacin Allergy Severe Anaphylaxis Verified 04/14/25 14:04 cefaclor (From CECLOR) Allergy Unknown Unknown Verified 04/14/25 14:04 allergy reaction sulfamethoxazole (From Allergy Unknown Unknown Verified 04/14/25 14:04 BACTRIM) allergy reaction trimethoprim (From BACTRIM) Allergy Unknown Unknown Verified 04/14/25 14:04 allergy reaction Exam (Inpt) Vital signs and Labs for Last 24 Hours: Temp Pulse Resp BP Pulse Ox O2 Del Method 98.0 F 51 L 18 135/61 98 Room Air 04/15/25 10:07 04/15/25 10:07 04/15/25 10:07 04/15/25 10:07 04/15/25 10:07 04/15/25 10:07 Laboratory Results - last 24 hr 04/15/25 07:32: Urine Color Yellow, Urine Appearance Clear, Urine pH 6.0, Ur Specific [place] 1.020, Urine Protein Negative, Urine Glucose (UA) Negative, Urine Ketones Negative, Urine Blood Negative, Urine Nitrate Negative, Urine Bilirubin Negative, Urine Urobilinogen 1.0, Ur Leukocyte Esterase Negative, Urine RBC Occasional, Urine WBC None, Ur Squamous Epith Cells 5-10, Urine Bacteria 1+ 04/15/25 07:42: WBC 4.8, RBC 4.61, Hgb 13.5, Hct 40.1, MCV 87.0, MCH 29.3, MCHC 33.7, RDW 11.9, Plt Count 272, MPV 9.3, Neut % (Auto) 62.9, Lymph % (Auto) 26.9, [place] % (Auto) 7.9, Eos % (Auto) 1.7, Baso % (Auto) 0.4, Neut # (Auto) 3.0, Lymph # (Auto) 1.3, [place] # (Auto) 0.4, Eos # (Auto) 0.1, Baso # (Auto) 0.0, Sodium 137, Potassium 4.3, Chloride 106, Carbon Dioxide 25, Anion Gap 10.3, BUN 12, Creatinine 0.80, Estimated Creat Clear 114, Estimated GFR 79, Est GFR ( Amer) 96, Glucose 91, Calcium 8.9, Total Bilirubin 1.2, AST 24, ALT 21, Alkaline Phosphatase 61, Total Protein 7.7, Albumin 4.3, Globulin 3.4 H, Albumin/Globulin Ratio 1.3, Lipase 150 I & O for Labs for Last 24 Hours: Intake & Output 04/12/25 04/13/25 04/14/25 04/15/25 11:59 11:59 11:59 11:59 Intake Total 1000 / 1000 Balance 1000 / 1000 Weight 170 lb Constitutional: mild distress GI: Present soft, tenderness, guarding and rebound Comments:: She has significant diffuse tenderness with some regional peritonitis in the right lower quadrant with guarding and rebound. Results Labs 04/15/25 07:42 04/15/25 07:42 Labs: Laboratory Results - last 24 hr 04/15/25 07:32: Urine Color Yellow, Urine Appearance Clear, Urine pH 6.0, Ur Specific [place] 1.020, Urine Protein Negative, Urine Glucose (UA) Negative, Urine Ketones Negative, Urine Blood Negative, Urine Nitrate Negative, Urine Bilirubin Negative, Urine Urobilinogen 1.0, Ur Leukocyte Esterase Negative, Urine RBC Occasional, Urine WBC None, Ur Squamous Epith Cells 5-10, Urine Bacteria 1+ 04/15/25 07:42: WBC 4.8, RBC 4.61, Hgb 13.5, Hct 40.1, MCV 87.0, MCH 29.3, MCHC 33.7, RDW 11.9, Plt Count 272, MPV 9.3, Neut % (Auto) 62.9, Lymph % (Auto) 26.9, [place] % (Auto) 7.9, Eos % (Auto) 1.7, Baso % (Auto) 0.4, Neut # (Auto) 3.0, Lymph # (Auto) 1.3, [place] # (Auto) 0.4, Eos # (Auto) 0.1, Baso # (Auto) 0.0, Sodium 137, Potassium 4.3, Chloride 106, Carbon Dioxide 25, Anion Gap 10.3, BUN 12, Creatinine 0.80, Estimated Creat Clear 114, Estimated GFR 79, Est GFR ( Amer) 96, Glucose 91, Calcium 8.9, Total Bilirubin 1.2, AST 24, ALT 21, Alkaline Phosphatase 61, Total Protein 7.7, Albumin 4.3, Globulin 3.4 H, Albumin/Globulin Ratio 1.3, Lipase 150 Assessment and Plan *Assessment and plan (1) Cecal volvulus: Status: Acute Category: Medical Code(s): K56.2 - Volvulus Plan Prior to evaluating the patient and reviewing the films given the somewhat nontextbook appearance consideration was being given for possible urgent laparoscopy. However patient shows evidence of regional peritonitis with distress consistent with acute cecal volvulus. Plan will be for emergent laparotomy likely with right colon resection with possible ostomy. I explained to her the nature and details of the proposed procedure along with associated risks and expected outcome. She understands and agrees to proceed.
[2025-04-15] MEDS: HYDROMORPHONE 2MG/ML SYRINGE 0.5 MG IV ×5 (10:29→14:10)
[2025-04-15] MEDS: SULBACTAM IV (10:45)
[2025-04-15] MEDS: AMPICILLIN IV (10:45)
--- NOTE | 2025-04-15 11:23 | EXP.ANES.CKL ---
[facility] Disclaimer: The information contained in this section may have been updated after the patient was seen, as this information can be updated by other users. Medical History Acute bronchopneumonia Back pain Body mass index (BMI) of 35.0 to 35.9 in adult Headache Hyperlipidemia Neck pain Obesity with body mass index (BMI) of 35.0 to 39.9 without comorbidity Sinusitis Viral bronchitis Viral gastroenteritis Vitamin D deficiency Anxiety Hypertension Irritable bowel syndrome with constipation Rheumatoid arthritis Rheumatoid factor positive Migraines Endometriosis Depression Ankylosing spondylitis Hyperlipidemia (~11/22/17) Vitamin D deficiency (~11/22/17) Obesity (BMI 35.0-39.9 without comorbidity) Sinusitis Surgical History History of colonoscopy History of tubal ligation History of laparotomy Hx of dilation and curettage History of hysterectomy History of cholecystectomy Family History Other Cancer Coronary artery disease Hypertension No significant family history Stroke 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 Smoking Status: Never smoker alcohol intake: never substance use type: denies use current occupational status: employed Travel in the last 8 weeks?: None adopted: No caregiver/support person: No household members: spouse and children housing: house lives independently: No marital status: education level: college service: No senior living: No caffeine: Yes special sandi needs: No agree to transfusion: No do you feel safe at home: Yes victim of physical abuse: No victim of emotional abuse: No victim of sexual abuse: No would you like helpful sources: No Have you lived/traveled outside [place] in past 30 days?: No Contact w/someone who lives/traveled outside [place] past 30 days?: No Exposure to someone with infectious disease in past 14 days?: No Do you have a fever (greater than 100.4 F or 38 C)?: No Have you tested positive for COVID-19?: No Exposed to someone with COVID-19 in past 14 days?: No Do you have a sore throat?: No Do you have a cough?: No Do you have any weakness?: No Do you have any diarrhea?: No Are you experiencing any unusual bleeding?: No Do you have any muscle aches/pain?: No Do you have any abdominal pain?: No Are you experiencing loss of taste or smell?: No [facility] Anesthesia Checklist Patient Identification Patient Identification: Arm Band and Verbal (Name & ) Structural Data Admitted From: Home Planned Operative Procedure/s: Exploratory Laparotomy Consent for Planned Operative Procedure(s) Verified: Yes Verified Documents: Surgical Consent NPO Status Verified Time NPO: 00:00 Chart Verification Results Verified: CBC and BMP Additional verifications Patient : No Anesthesia Reactions: No Airway Assessment Mallampati Score:: Class II C-Spine Mobility Assessed: Yes TMJ Mobility Assessed: Yes Dentition: Good Dentition Neurological Assessment Level of Consciousness: Awake, Alert and Appropriate Hx Seizures: No Numbness or tingling in extremities: No Anesthesia Plan Anesthesia Risk discussed: Yes Anesthesia Plan: Verified ASA Class: II (Emergency) Anesthesia Type: General
[2025-04-15] MEDS: 0.9 % SODIUM CHLORIDE 100 ML 50 ML IV (11:37)
--- NOTE | 2025-04-15 13:29 | EXP.OP.NOTE ---
Date of procedure: 04/15/25 Pre-op Diagnosis:: Cecal volvulus Post-op Diagnosis:: Same Procedure performed:: Laparotomy, ileocecal resection with ileocolic anastomosis Surgeon:: Travon Victor MD PUBLIC ADDRESS SERVICER:: Robert Hernandez Anesthesia: GETRonen Estimated blood loss (mL): 50 Clinical Note:: Patient is a 39-year-old female with chronic constipation. She presented to the emergency department with acute onset of severe right lower quadrant pain. CT scan revealed findings of cecal volvulus. She underwent surgical consultation was seen in the emergency room. She had findings of regional peritonitis. Patient was under moderate distress and quite uncomfortable. Plan was for immediate surgical intervention. Operative findings:: She had a redundant cecum with probable cecal volvulus without necrosis. Operative note:: Consent was obtained patient was taken emergently to the operating room. She was given preoperative intravenous antibiotics. In the operating room she was placed in a supine position. General anesthesia was induced via endotracheal tube. Her abdomen was prepped and draped in the standard surgical fashion after Montanez catheter was placed. A limited midline laparotomy was performed. Dissection was carried out through subcutaneous tissues. Fascia was incised and peritoneal cavity was entered. Exposure was achieved. She had a redundant cecum. This appeared viable. Given the likelihood of recurrent cecal volvulus plan was made for ileocecal resection as would be the standard of care. Patient was noted to have an extremely elongated appendix. The cecum and proximal right colon was mobilized by dividing the peritoneum along the white line of Toldt. Cecum was elevated. Terminal ileum was divided with a TORREY linear cutting stapling device. Right colon was divided at the mid ascending colon with TORREY 75 type stapling device as well. There were noted to be some prominent lymph nodes. The colonic mesentery was scored. It was divided with the Enseal device with an effort made to extend the planned regional lymphadenectomy to include the prominent enlarged lymph nodes. The ileocolic vessels were doubly ligated with 0 Nurolon suture and divided. Terminal ileum and cecum with the included appendix was passed off the table as a specimen. A [id number], functional end-to-end anastomosis was created with the TORREY 75 type stapling device. There was some liquid stool present within the right colon. The common enterotomy of the anastomosis was closed with a TX 60B type stapling device. 3-0 Surgilon seromuscular suture was placed at the confluence of staple lines. The TX 60B staple line was oversewn with interrupted seromuscular 3-0 Surgilon with some use of running locking 3 oh Surgilon. 3-0 Surgilon was placed at the staple line angle. The mesenteric defect was closed with a running 2-0 Vicryl. There was noted to be some mild duskiness to a portion laterally of the colon at the anastomosis. However this was observed for some time and appeared to be viable and very limited with increasing perfusion. Enteric contents were returned at the peritoneal cavity. Nasogastric tube was palpated and manipulated into a good position in the mid body of the stomach where it was secured at 60 cm. Peritoneal cavity was thoroughly irrigated. There appeared to be good hemostasis. Fascia was closed with a #1 PDS x 2. Skin was closed with subha. Clean dry sterile dressing was applied. . Condition: stable Disposition: PACU Complications:: None immediately apparent
--- NOTE | 2025-04-15 13:31 | P.PNANES_ITS ---
[facility] Anesthesia Record Part I Anesthesia Record I Intake, IV Amount: 800 Hydration: Adequate Estimated blood loss (mL): 50 Urine output (mL): 400 Blood Products used (#): none Blood Pressure: 155/86 SaO2: 100 Pulse Rate: 107 Airway Patency: Patent Respiratory Rate: 14 Temperature: 97.0 F Patient is:: Drowsy and Stable Stable to PACU at:: 13:29
--- NOTE | 2025-04-15 13:51 | HMH.PHAINT1 ---
Pharmacy Intervention Comments: MEDICATION RECONCILIATION COMPLETED ON PATIENT USING EXTERNAL FILL HISTORY FROM PHARMACY. -ALY MATHEW, ALBERTOD
--- NOTE | 2025-04-15 14:27 | PC.NURSE ---
arrived by bed from surgery at14:16
[2025-04-15 15:00] LABS: Microscopic, Urine URINE MICROSCOPIC (MICROSCOPIC)
--- NOTE | 2025-04-15 15:10 | EXP.HP ---
History of Present Illness *Admission Date: 04/15/25 *Reason for visit:: Postoperative emergent abdominal surgery *History of present illness: Patient is a 39-year-old female with a history of chronic constipation. She does take MiraLAX daily. She has tried and previously failed Linzess, Trulance, enemas, suppositories, magnesium citrate, probiotics, fiber supplementation, and Dulcolax. She has had previous regular colonoscopies with last colonoscopy revealing a single polyp in [address] Sales. She had seen gastroenterology as an outpatient yesterday on 04/14/2025. Today she had acute onset of severe right lower quadrant abdominal pain. She immediately presented to the emergency department. She arrived appearing uncomfortable and tearful with tachycardia. She underwent thorough evaluation including CT scan of the abdomen pelvis which revealed twisting of the cecum suspicious for volvulus and surgical consultation was recommended. Surgery was contacted. Imaging was reviewed. It appeared somewhat atypical for classic cecal volvulus and therefore the patient was evaluated. She did have some morphine but continued to have severe abdominal pain. Patient was taken for emergent surgery by Dr. Victor for surgical intervention from the emergency room. Laparotomy was performed with ileocecal resection with ileocolic anastomosis. Patient did tolerate surgery well. She was then admitted to the medical floor with Montanez catheter and NG tube in place for recovery. Also to note patient has a history of hypertension, hyperlipidemia, depression, endometriosis, migraines, positive rheumatoid arthritis factor on Humira, and anxiety. She has most recently been seen in the office of [facility] for severe thoracic and lumbar back pain. She was seen by gastroenterology yesterday and started on Ibsrela for constipation. Patient had not had a bowel movement in 2-1/2 weeks despite Linzess and MiraLAX. states that she did start the new medicine last evening but had not had any bowel movements. At the time of this exam patient still remains somnolent from anesthesia. does answer most of the questions. [facility] Disclaimer: The information contained in this section may have been updated after the patient was seen, as this information can be updated by other users. Medical History Acute bronchopneumonia Back pain Body mass index (BMI) of 35.0 to 35.9 in adult Headache Hyperlipidemia Neck pain Obesity with body mass index (BMI) of 35.0 to 39.9 without comorbidity Sinusitis Viral bronchitis Viral gastroenteritis Vitamin D deficiency Anxiety Hypertension Irritable bowel syndrome with constipation Rheumatoid arthritis Rheumatoid factor positive Migraines Endometriosis Depression Ankylosing spondylitis Hyperlipidemia (~11/22/17) Vitamin D deficiency (~11/22/17) Obesity (BMI 35.0-39.9 without comorbidity) Sinusitis Surgical History History of colonoscopy History of tubal ligation History of laparotomy Hx of dilation and curettage History of hysterectomy History of cholecystectomy Family History Other Cancer Coronary artery disease Hypertension No significant family history Stroke 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 (Updated 04/15/25 @ 15:15 by Swati Mario RN) Smoking Status: Never smoker alcohol intake: never substance use type: denies use current occupational status: employed Travel in the last 8 weeks?: None adopted: No caregiver/support person: No household members: spouse and children housing: house lives independently: No marital status: education level: college service: No shelter: No caffeine: Yes special sandi needs: No agree to transfusion: No do you feel safe at home: Yes victim of physical abuse: No victim of emotional abuse: No victim of sexual abuse: No would you like helpful sources: No Have you lived/traveled outside US in past 30 days?: No Contact w/someone who lives/traveled outside US past 30 days?: No Exposure to someone with infectious disease in past 14 days?: No Do you have a fever (greater than 100.4 F or 38 C)?: No Have you tested positive for COVID-19?: No Exposed to someone with COVID-19 in past 14 days?: No Do you have a sore throat?: No Do you have a cough?: No Do you have any weakness?: No Are you experiencing any nausea/vomitting?: No Do you have any diarrhea?: No Are you experiencing any unusual bleeding?: No Do you have any muscle aches/pain?: No Do you have any abdominal pain?: No Are you experiencing loss of taste or smell?: No Other Medical History Have you received the Flu Vaccine for this season: No Have you received the Pneumonia Vaccine: No Review of Systems Constitutional Constitutional: Denies fever(s), Denies frequent falls, Denies headache(s) and Reports weight loss (Weight loss has been intentional with dietary changes) ENT Ears, Nose, Mouth, and Throat: Denies disequilibrium, Denies headache(s) and Denies sore throat *Cardiovascular Cardiovascular: Denies chest pain, Denies dyspnea and Denies leg edema *Respiratory Respiratory: Denies chest congestion, Denies cough and Denies dyspnea *Gastrointestinal Gastrointestinal: Reports change in bowel habits (She has ongoing constipation with her last stool being 2-1/2 weeks ago), Denies constipation, Denies melena, Reports nausea and Denies vomiting *Genitourinary Genitourinary: Denies difficulty voiding *Musculoskeletal Musculoskeletal: Denies abnormal gait and Reports back pain (Thoracic and lumbar areas) *Neurologic Neurologic: Denies abnormal gait, Denies disequilibrium, Denies frequent falls and Denies headache(s) Meds Home Medications and Allergies Home Medications ?Medication ?Instructions ?Recorded ?Confirmed ?Type duloxetine 60 mg capsule,delayed 60 mg PO DAILY 11/13/22 04/15/25 History release adalimumab 40 mg/0.4 mL 40 mg SQ DIRECTED 02/06/23 04/15/25 History subcutaneous pen kit (Humira(CF) Pen) omeprazole 40 mg capsule,delayed 40 mg PO DAILY 11/05/23 04/15/25 History release tizanidine 2 mg tablet 2 mg PO TIDP PRN Muscle Spasm 01/09/24 04/15/25 History meloxicam 7.5 mg tablet 7.5 mg PO BID 04/15/25 04/15/25 History New Prescriptions to Start Prescriptions: Allergies Allergy/AdvReac Type Severity Reaction Status Date / Time indomethacin Allergy Severe Anaphylaxis Verified 04/14/25 14:04 cefaclor (From CECLOR) Allergy Unknown Unknown Verified 04/14/25 14:04 allergy reaction sulfamethoxazole (From Allergy Unknown Unknown Verified 04/14/25 14:04 BACTRIM) allergy reaction trimethoprim (From BACTRIM) Allergy Unknown Unknown Verified 04/14/25 14:04 allergy reaction Exam Data for Last 24 hours Vital signs and Labs for Last 24 Hours: Temp Pulse Resp BP Pulse Ox O2 Del Method 97.7 F 119 H 20 108/74 L 93 L Room Air 04/15/25 14:20 04/15/25 14:50 04/15/25 14:50 04/15/25 14:50 04/15/25 14:50 04/15/25 14:50 Laboratory Results - last 24 hr 04/15/25 07:32: Urine Color Yellow, Urine Appearance Clear, Urine pH 6.0, Ur Specific [place] 1.020, Urine Protein Negative, Urine Glucose (UA) Negative, Urine Ketones Negative, Urine Blood Negative, Urine Nitrate Negative, Urine Bilirubin Negative, Urine Urobilinogen 1.0, Ur Leukocyte Esterase Negative, Urine RBC Occasional, Urine WBC None, Ur Squamous Epith Cells 5-10, Urine Bacteria 1+ 04/15/25 07:42: WBC 4.8, RBC 4.61, Hgb 13.5, Hct 40.1, MCV 87.0, MCH 29.3, MCHC 33.7, RDW 11.9, Plt Count 272, MPV 9.3, Neut % (Auto) 62.9, Lymph % (Auto) 26.9, [place] % (Auto) 7.9, Eos % (Auto) 1.7, Baso % (Auto) 0.4, Neut # (Auto) 3.0, Lymph # (Auto) 1.3, [place] # (Auto) 0.4, Eos # (Auto) 0.1, Baso # (Auto) 0.0, Sodium 137, Potassium 4.3, Chloride 106, Carbon Dioxide 25, Anion Gap 10.3, BUN 12, Creatinine 0.80, Estimated Creat Clear 114, Estimated GFR 79, Est GFR ( Amer) 96, Glucose 91, Calcium 8.9, Total Bilirubin 1.2, AST 24, ALT 21, Alkaline Phosphatase 61, Total Protein 7.7, Albumin 4.3, Globulin 3.4 H, Albumin/Globulin Ratio 1.3, Lipase 150 I & O for Last 24 hours: Intake & Output 04/13/25 04/14/25 04/15/25 04/16/25 11:59 11:59 11:59 11:59 Intake Total 1000 / 1000 800 / 800 Balance 1000 / 1000 800 / 800 Weight 170 lb 184 lb Constitutional Constitutional: no acute distress and somnolent (From anesthesia) *Routine HEENT Exam Head: Present normocephalic and atraumatic Eye: Absent scleral injection ENT: Present mucous membranes dry *Routine Neck Exam Neck: Absent lymphadenopathy or thyromegaly *Routine Respiratory Exam Respiratory: Present CTA bilaterally *Routine Cardiovascular Exam Cardiovascular: Present RRR *Routine Abdominal Exam Abdominal: Present soft Comments: NG tube in place *Routine Rectal Exam Rectal:: deferred *Routine Genitalia Exam Genitalia:: deferred *Routine Extremities Exam Extremities: Present pulses intact; Absent edema or calf tenderness *Routine Neurological Exam Neurological: Absent alert (Somnolent from anesthesia) Assessment and Plan *Assessment and plan (1) Cecal volvulus: Status: Acute Category: Medical Code(s): K56.2 - Volvulus Plan As per surgeon orders. Dr. Dior entry - Saw patient, agree with above note.
[2025-04-15] MEDS: MORPHINE 2MG/ML SYRINGE 2 MG IV ×2 (15:40→16:58)
[2025-04-15] MEDS: MORPHINE 2MG/ML SYRINGE 4 MG IV ×4 (18:06→23:08)
[2025-04-15] MEDS: AMPICILLIN SODIUM/SULBACTAM 3 GM in 0.9 % SODIUM CHLORIDE 100 ML IV ×2 (18:13→23:08)
[2025-04-15] MEDS: LACTATED RINGERS 1000ML 1,000 ML 125 ML IV (18:55)
[2025-04-15] MEDS: PANTOPRAZOLE 40MG VIAL 40 MG IV (20:21)
[2025-04-15 20:52] LABS: Bilirubin,Urine Negative (Negative); Color,Urine YELLOW (Yellow); Glucose,Urine (UA) Negative (Negative); Ketones,Urine Negative (Negative); Leukocyte Esterase,Urine Negative (Negative); PH,Urine 6.0 (5.0-8.5); Protein,Urine Negative (Negative); Specific Gravity, Urine <= 1.005 (1.005-1.030); Urobilinogen,Urine 0.2 EU/dl (0.2)
[2025-04-16] VITALS: BP 119/76; PULSE 112; RESP 16; TEMP 36.6; O2SAT 98
[2025-04-16] MEDS: MORPHINE 2MG/ML SYRINGE 4 MG IV ×2 (01:14→03:08)
[2025-04-16] MEDS: LACTATED RINGERS 1000ML 1,000 ML 125 ML IV ×3 (01:15→20:04)
[2025-04-16 04:00] VITALS: BP 118/83; PULSE 76; RESP 18; TEMP 36.8; O2SAT 98; BMI 31.2
--- NOTE | 2025-04-16 04:10 | PC.NURSE ---
Pt is A&OX4 and has tolerated room air. Bowel sounds hypoactive. Dressing over midline incision has remained c/d/i. She has complained of pain multiple times this shift and was medicated per MAR. NG in place to low wall suction. LR has been infusing at 125ml/hr. She has also received IV abx. No other complaints at this time, call light within reach.
[2025-04-16] MEDS: ONDANSETRON 4MG/2ML VIAL 4 MG IV ×3 (04:32→10:46)
[2025-04-16] MEDS: HYDROMORPHONE 2MG/ML SYRINGE 1 MG IV ×6 (04:32→23:03)
[2025-04-16] MEDS: AMPICILLIN SODIUM/SULBACTAM 3 GM in 0.9 % SODIUM CHLORIDE 100 ML IV ×4 (04:38→23:03)
--- NOTE | 2025-04-16 06:18 | EXP.ANES.II ---
[facility] Anesthesia Record Part II Anesthesia Record Part II Discharge Time: 14:09 Destination: Medical Surgical Department PACU nurse assessment reviewed?: Yes Patient Condition:: Good Anesthesia Complications:: None Swallowing reflex intact?: Yes Airway Patency: Patent Cyanosis?: No Blood Pressure: 119/73 SaO2: 97 Respiratory Rate: 17 Pulse Rate: 110 Temperature: 97.7 F Mental Status: Alert & Oriented Pain level:: 9 Nausea and/or vomitting:: None Intake, IV Amount: 0 Hydration: Adequate
[2025-04-16 06:19] VITALS: BP 119/73; PULSE 110; RESP 17; TEMP 36.5; O2SAT 97
[2025-04-16 06:32] LABS: Hematocrit 31.2 % (37.0-47.0); Immature Granulocytes % 0.4 %; Mean Corpuscular HGB Conc 33.3 g/dL (31.8-35.4); Mean Corpuscular Hemoglobin 29.2 pg (27.0-31.2); Mean Corpuscular Volume 87.6 fl (81-99); Nucleated Red Blood Cells % 0 %; Platelet Count 201 K/mm3 (142-424); Red Blood Count 3.56 M/mm3 (4.20-5.40); Red Cell Distribution Width-SD 38.1 fL; White Blood Count 10.4 K/mm3 (4.8-10.8)
[2025-04-16 06:42] LABS: Hemoglobin 10.3 g/dL (12.2-16.2)
[2025-04-16 06:47] LABS: Chloride 103 mmol/L (98-107); Sodium 135 mmol/L (136-145)
[2025-04-16 06:48] LABS: Potassium 3.6 mmoL/L (3.5-5.1)
[2025-04-16 06:51] LABS: Anion Gap 9.6 mEq/L (5-15); Blood Urea Nitrogen 10 mg/dl (7-17); Calcium 7.7 mg/dl (8.4-10.2); Carbon Dioxide 26 mmol/L (22.0-30.0); Creatinine Clearance Estimated 149 mL/min (50-200); Creatinine,Serum 0.70 mg/dl (0.52-1.04); Estimated Glomerular Filt Rate 93 ml/min (>60); GFR (African American) 112 ML/MIN (>60); Glucose 86 mg/dl (74-100)
[2025-04-16 08:00] VITALS: BP 128/88; PULSE 98; RESP 18; TEMP 37.1; O2SAT 98
--- NOTE | 2025-04-16 08:16 | EXP.ACUTE.PN ---
Subjective *Date: 04/16/25 *Time: 08:30 Interval history: Patient is in a lot of pain this am and is requesting nausea medication as well. NG tube is still draining. Medical Exam Vital signs and Labs for Last 24 Hours: Vital Signs Temp Pulse Pulse Resp BP BP Pulse Ox 04/16/25 06:38 04/16/25 06:19 17 04/16/25 05:00 04/16/25 04:00 98.3 F 76 18 118/83 98 04/16/25 03:00 04/16/25 01:00 04/16/25 00:00 97.9 F 112 H 16 119/76 98 04/15/25 23:00 04/15/25 21:00 04/15/25 20:00 04/15/25 20:00 98.0 F 110 H 16 137/79 98 04/15/25 19:00 04/15/25 17:10 04/15/25 17:05 117 H 22 147/82 H 97 04/15/25 16:35 113 H 22 129/81 96 04/15/25 16:05 120 H 22 133/79 96 04/15/25 15:35 124 H 22 124/74 96 04/15/25 15:10 04/15/25 15:05 120 H 22 125/94 H 96 04/15/25 14:50 119 H 20 108/74 L 93 L 04/15/25 14:45 120 H 96 04/15/25 14:35 115 H 20 106/62 L 93 L 04/15/25 14:20 97.7 F 118 H 20 106/70 L 96 04/15/25 14:09 110 H 17 119/73 97 04/15/25 13:59 112 H 17 120/58 L 99 04/15/25 13:49 114 H 17 128/75 99 04/15/25 13:39 110 H 18 136/85 100 04/15/25 13:33 97.0 F L 107 H 14 155/86 H 04/15/25 13:29 97.0 F L 107 H 14 155/86 H 100 04/15/25 10:31 98.5 F 86 20 131/93 H 04/15/25 10:07 98.0 F 51 L 18 135/61 98 04/15/25 10:01 96 H 131/93 H 100 04/15/25 09:51 93 H 128/86 100 04/15/25 09:30 87 145/102 H 100 04/15/25 09:15 88 136/96 H 100 04/15/25 09:00 92 H 133/87 99 04/15/25 08:45 91 H 130/83 99 04/15/25 08:42 91 H 129/83 99 O2 Del Method O2 Flow Rate 04/16/25 06:38 Room Air 04/16/25 06:19 04/16/25 05:00 Room Air 04/16/25 04:00 Nasal Cannula 2 04/16/25 03:00 Room Air 04/16/25 01:00 Room Air 04/16/25 00:00 Room Air 04/15/25 23:00 Room Air 04/15/25 21:00 Room Air 04/15/25 20:00 Room Air 04/15/25 20:00 Room Air 04/15/25 19:00 Room Air 04/15/25 17:10 Room Air 04/15/25 17:05 Room Air 04/15/25 16:35 Room Air 04/15/25 16:05 Room Air 04/15/25 15:35 Room Air 04/15/25 15:10 Room Air 04/15/25 15:05 Room Air 04/15/25 14:50 Room Air 04/15/25 14:45 Room Air 04/15/25 14:35 Room Air 04/15/25 14:20 Room Air 04/15/25 14:09 Room Air 04/15/25 13:59 Room Air 04/15/25 13:49 Room Air 04/15/25 13:39 Room Air 04/15/25 13:33 04/15/25 13:29 Room Air 04/15/25 10:31 Room Air 04/15/25 10:07 Room Air 04/15/25 10:01 Room Air 04/15/25 09:51 Room Air 04/15/25 09:30 04/15/25 09:15 04/15/25 09:00 04/15/25 08:45 04/15/25 08:42 Intake and Output 04/15/25 04/16/25 04/16/25 19:59 03:59 11:59 Intake Total 900 / 1921.667 921.667 / 1921.667 100 / 1921.667 Output Total 800 / 800 Balance 900 / 1121.667 921.667 / 1121.667 -700 / 1121.667 Intake: Intake, Oral Amount 30 / 30 Intake, Total IV Amount 900 / 1891.667 891.667 / 1891.667 100 / 1891.667 Ampicillin Sodium/Sulbactam 3 100 / 300 100 / 300 100 / 300 gm In 0.9 % Sodium Chloride 100 ml @ 200 mls/hr IV Q6H [facility] [place] Rx# :[id number] Lactated Ringers 1000ML 1,000 791.667 / 791.667 ml @ 125 mls/hr IV .Q8H [facility] Rx# :[id number] Output: Output, Urine Amount 700 / 700 Output, Gastric Drainage Amount 100 / 100 Left Nare 100 / 100 Other: Number of Unmeasured Voids 0 Weight 184 lb 194 lb 6 oz Patient Weight 04/16/25 11:59 Weight 194 lb 6 oz Laboratory Results - last 24 hr 04/15/25 10:55: Urine Color Yellow, Urine Appearance Clear, Urine pH 6.0, Ur Specific [place] <= 1.005, Urine Protein Negative, Urine Glucose (UA) Negative, Urine Ketones Negative, Urine Blood Negative, Urine Nitrate Negative, Urine Bilirubin Negative, Urine Urobilinogen 0.2, Ur Leukocyte Esterase Negative, Urine RBC None, Urine WBC None, Ur Squamous Epith Cells None, Urine Bacteria None 04/16/25 05:30: WBC 10.4 D, RBC 3.56 L, Hgb 10.3 L D, Hct 31.2 L, MCV 87.6, MCH 29.2, MCHC 33.3, RDW 11.8, Plt Count 201 D, MPV 9.7, Neut % (Auto) 81.3 H, Lymph % (Auto) 11.1, [place] % (Auto) 6.9, Eos % (Auto) 0.1, Baso % (Auto) 0.2, Neut # (Auto) 8.4 H, Lymph # (Auto) 1.2, [place] # (Auto) 0.7, Eos # (Auto) 0.0, Baso # (Auto) 0.0, Sodium 135 L, Potassium 3.6, Chloride 103, Carbon Dioxide 26, Anion Gap 9.6, BUN 10, Creatinine 0.70, Estimated Creat Clear 149, Estimated GFR 93, Est GFR ( Amer) 112, Glucose 86, Calcium 7.7 L I & O for Labs for Last 24 Hours: Intake & Output 04/13/25 04/14/25 04/15/25 04/16/25 11:59 11:59 11:59 11:59 Intake Total 1000 / 1000 1921.667 / 1921.667 Output Total 800 / 800 Balance 1000 / 1000 1121.667 / 1121.667 Weight 170 lb 194 lb 6 oz Constitutional: Present mild distress Respiratory: Present CTA bilaterally Cardiac: Present Reg Rate and Rhythm GI: Present soft, tenderness (around surgical site) and diminished bowel sounds; Absent distention Extremities: Absent edema Skin: Present intact Neuro: Present alert, awake and oriented x 3 Assessment and Plan *Assessment and plan (1) Cecal volvulus: Status: Acute Category: Medical Code(s): K56.2 - Volvulus (2) Rheumatoid arthritis: Status: Acute Category: Medical Code(s): M06.9 - Rheumatoid arthritis, unspecified (3) Hyperlipidemia: Status: Chronic Qualifiers: Hyperlipidemia type: other hyperlipidemia Qualified Code(s): E78.49 - Other hyperlipidemia Category: Medical Code(s): E78.5 - Hyperlipidemia, unspecified (4) Vitamin D deficiency: Status: Chronic Category: Medical Code(s): E55.9 - Vitamin D deficiency, unspecified Plan Surgery to follow. She has been started on Dilaudid and will give zofran as well. Dr. Dior entry - Saw patient, agree with above note. Hope to get Montanez out later today and OOB. Plan discussed with Dr. Morfin.
--- NOTE | 2025-04-16 08:49 | EXP.SURG.PN ---
Subjective Patient reports: still having pain Exam Data for Last 24 hours Vital signs and Labs for Last 24 Hours: Temp Pulse Resp BP Pulse Ox O2 Del Method O2 Flow Rate 98.8 F 98 H 18 128/88 98 Room Air 2 04/16/25 08:00 04/16/25 08:00 04/16/25 08:00 04/16/25 08:00 04/16/25 08:00 04/16/25 08:38 04/16/25 04:00 Laboratory Results - last 24 hr 04/15/25 10:55: Urine Color Yellow, Urine Appearance Clear, Urine pH 6.0, Ur Specific [place] <= 1.005, Urine Protein Negative, Urine Glucose (UA) Negative, Urine Ketones Negative, Urine Blood Negative, Urine Nitrate Negative, Urine Bilirubin Negative, Urine Urobilinogen 0.2, Ur Leukocyte Esterase Negative, Urine RBC None, Urine WBC None, Ur Squamous Epith Cells None, Urine Bacteria None 04/16/25 05:30: WBC 10.4 D, RBC 3.56 L, Hgb 10.3 L D, Hct 31.2 L, MCV 87.6, MCH 29.2, MCHC 33.3, RDW 11.8, Plt Count 201 D, MPV 9.7, Neut % (Auto) 81.3 H, Lymph % (Auto) 11.1, [place] % (Auto) 6.9, Eos % (Auto) 0.1, Baso % (Auto) 0.2, Neut # (Auto) 8.4 H, Lymph # (Auto) 1.2, [place] # (Auto) 0.7, Eos # (Auto) 0.0, Baso # (Auto) 0.0, Sodium 135 L, Potassium 3.6, Chloride 103, Carbon Dioxide 26, Anion Gap 9.6, BUN 10, Creatinine 0.70, Estimated Creat Clear 149, Estimated GFR 93, Est GFR ( Amer) 112, Glucose 86, Calcium 7.7 L I & O for Last 24 hours: Intake & Output 04/13/25 04/14/25 04/15/25 04/16/25 11:59 11:59 11:59 11:59 Intake Total 1000 / 1000 2832.084 / 2832.084 Output Total 800 / 800 Balance 1000 / 1000 2032.084 / 2031.084 Weight 170 lb 194 lb 6 oz Constitutional Constitutional: mild distress (Secondary to postoperative pain) *Routine Respiratory Exam Respiratory: Absent respiratory distress *Routine Cardiovascular Exam Cardiovascular: Present tachycardia (Minimally tachycardic) *Routine Abdominal Exam Comments: Dressings in place. Progress Note: A&P Assessment and plan (1) Cecal volvulus: Status: Acute Assessment and plan: Stable postoperative day 1 status post ileocecal resection with primary anastomosis Continue overall management as per primary service Remove Montanez catheter Increase ambulation Maintain nasogastric decompression for now Await return of bowel function
--- OUTSIDE RECORDS SUMMARY | 2025-04-16 08:56 | XMS_ITS | Referral Summary ---
Author Organization [facility] ([place], [place], [place], [place]) Address [address] [place] [address] Care Team Providers Care Negative Turner Name Role Phone Narinder Dior MD Primary Care Provider + [phone] Allergies Active Allergy Reactions Criticality Noted Date [...] Date Tremaine rded Speak language other than Citizen Of [place] at home Not on file 07/19/2023 Want [...] Plan of Treatment Not on file [facility] Care Teams Negative Turner Relationship Specialty Start Date End Date Narinder Dior MD [address] [facility] [address] [place] [id number] PCP - General Family Medicine 08/02/22
--- OUTSIDE RECORDS SUMMARY | 2025-04-16 08:56 | XMS_ITS | Clinical Summary ---
Author Organization [facility] ([place], [place], [place], [place]) Address [address] [place] [address] Care Team Providers Care Colorist Name Role Phone Narinder Dior MD Primary Care Provider + [phone] Allergies Active Allergy Reactions Criticality Noted Date [...] Date Tremaine rded Speak language other than Eston[place] at home Not on file 07/19/2023 Want [...] patient's age to complete this topic [facility] Care Teams Colorist Relationship Specialty Start Date End Date Narinder Dior MD [address] [facility] [address] [place] [id number] PCP - General Family Medicine 08/02/22
--- OUTSIDE RECORDS SUMMARY | 2025-04-16 08:56 | XMS_ITS | Clinical Summary ---
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 Warned not to take with other NSAIDs including [id number] NSAIDs. Family History Medical History Relation Name [...] ve Non-Reacti ve 06/03/2024 11:16 PM EST [facility] Hep A IgM Non-Reacti ve Non-Reacti ve 06/03/2024 11:16 PM EST [facility] Hep B C IgM Non-Reacti ve Non-Reacti ve 06/03/2024 11:16 PM EST [facility] Hepatitis C Ab Non-Reacti ve Non-Reacti ve 06/03/2024 11:16 PM EST [facility] Blood Venipuncture / Unknown 06/03/2024 2:02 PM EST 06/03/2024 2:02 PM EST Narrative [facility] - 06/03/2024 11:16 PM EST Results may be falsely decreased if patient taking Biotin. Mario Mensah MD LAB BLOOD ORDERABLES Final Res ult [facility]
[address] [place] [address], from Last 3 Months or Most Recently Relevant to Health Maintenance Insurance [facility] Care Teams Machine Tank Operator Relationship Specialty Start Date End Date Sally Cordova PA [address] [place] [address] [address] PCP - General Physician Mail Processing Equipment Mechanic 10/17/23
--- OUTSIDE RECORDS SUMMARY | 2025-04-16 08:58 | XMS_ITS | Patient Health Record ---
Author Organization [facility] Address [address] [facility] [address] [id number] Care Team Providers Care Shot Lighter Name Role Phone Sally Cordova Primary Care Provider Marko Quirozine Unavailable [phone] Allergies Allergen (clinical drug ingredient) Drug/Non Drug [...] Interpretation:Normal Performing Lab: Notes/Report: Test performed by [facility] , [address], [place] [address] Ramirez Thomason MD, Tenant Relations Coordinator CLIA: [id number] B burgdorferi (Lyme Disease) IgG Negative Negative B burgdorferi (Lyme Disease) IgM Negative Negative P-Comprehensive Metabolic Pa rickie (CMP) Reviewed date:12/31/2024 08:23:56 AM Interpretation:Normal Performing Lab: Notes/Report: Test performed by [facility] [address] [place] [address] , [place] [address] Ramirez Thomason MD, Tenant Relations Coordinator CLIA: [id number] Sodium 138 135-145 mmol/L Potassium 4.0 3.5-5.3 [...] 0.7 <0.2-1.2 mg/dL A/G Ratio 1.5 1.1-2.5 M-K-Cmorjqhl Protein (CRP), High Sensitivity Reviewed date:12/31/2024 08:23:56 AM Interpretation:Normal Performing Lab: Notes/Report: Test performed by [facility] [address] [place] [address] , [address], [place] [address] Ramirez Thomason MD, Tenant Relations Coordinator CLIA: [id number] C-Reactive Protein (CRP), High Sensitivity 0.70 <3.01 [...] Interpretation:Normal Performing Lab: Notes/Report: Test performed by [facility], [address] , [address], [place] [address] Ramirez Thomason MD, Tenant Relations Coordinator CLIA: [id number] AND Test performed by [facility] [address] [place] [address] Celia Lemus MD, Tenant Relations Coordinator B. burgdorferi Antibody IgG Immunoblot Negative Negative [...] developed and its performance characteristics determined by [facility]. It has not been cleared or approved by the US Food and Drug Administration. This test was performed in a CLIA certified laboratory and is intended for clinical purposes. Performed By: [facility] [address] [place] [address] Tenant Relations Coordinator: Ramón Prakash MD, PhD CLIA Number: [id number] A. phagocytophilum Ab IgG <1:80 <1:80 INTERPRETIVE INFORMATION: A. phagocytophilum (HGA) Antibody, IgG Less than 1:80 - No significant level of IgG antibodies to A. phagocytophilum detected. Greater than or equal to 1:80 - Suggestive of a recent or past infection with A. phagocytophilum. This test was developed and its performance characteristics determined by [facility]. It has not been cleared or approved by the US Food and Drug Administration. This test was performed in a CLIA certified laboratory and is intended for clinical purposes. P-Sed Rate (ESR) Reviewed date:12/31/2024 08:23:56 AM Interpretation:Normal Performing Lab: Notes/Report: Test performed by [facility] [address] [place] [address] , [place] [address] Ramirez Thomason MD, Tenant Relations Coordinator CLIA: [id number] Erythrocyte Sedimentation Rate (ESR), Automated 9 <26 mm/hr P-T4 Free (thyroxine) Reviewed date:12/31/2024 08:23:56 AM Interpretation:Normal Performing Lab: Notes/Report: Test performed by [facility] [address] [place] [address] [place] [address] Ramirez Thomason MD, Tenant Relations Coordinator CLIA: [id number] Thyroxine Free (free T4) 1.12 0.86-1.76 ng/dL P-TSH Reviewed date:12/31/2024 08:23:56 AM Interpretation:Normal Performing Lab: Notes/Report: Test performed by [facility] [address] [place] [address] [address] [place] [address] Ramirez Thomason MD, Tenant Relations Coordinator CLIA: [id number] TSH 1.53 0.43-5.25 mU/L P-Vitamin D 25-Hydroxy Reviewed date:12/31/2024 08:23:56 AM Interpretation:25.4 Performing Lab: Notes/Report: Test performed by [facility] [address] [place] [address] [place] [address] Ramirez Thomason MD, Tenant Relations Coordinator CLIA: [id number] Vitamin D 25-Hydroxy 25.4 30.0-100.0 ng/mL Interpretation [...] date:04/10/2025 03:43:28 PM Interpretation: Performing Lab: Notes/Report: TEN-Vaginal Infection panel Reviewed date:10/09/2024 05:13:16 PM Interpretation:Abnormal Performing Lab: Notes/Report: Abnormal HLA-B27 Antigen Reviewed date:10/10/2024 01:29:24 PM Interpretation: Performing Lab: Notes/Report: HLA-B27 Negative Negative INTERPRETIVE INFORMATION: HLA-B27 HLA-B27 is a serologically defined allele of the human HLA-B locus. The presence of the HLA-B27 antigen is strongly associated with ankylosing spondylitis and related disorders. This test was developed and its performance characteristics determined by [facility]. It has not been cleared or approved by the US Food and Drug Administration. This test was performed in a CLIA certified laboratory and is intended for clinical purposes. Performed By: [facility] [address] [place] [address] Tenant Relations Coordinator: Ramón Prakash MD, PhD CLIA Number: [id number] P-Rheumatoid Factor Reviewed date:10/10/2024 01:29:24 PM Interpretation: Performing Lab: Notes/Report: Test performed by [facility] [address] [place], [place] [address] [place] [address] Ramirez Thomason MD, Tenant Relations Coordinator CLIA: [id number] Rheumatoid Factor 10.0 <14.1 IU/mL P-Sed Rate (ESR) Reviewed date:10/10/2024 01:29:24 PM Interpretation: Performing Lab: Notes/Report: Test performed by [facility] [address] [place] [address] [place] [address] Ramirez Thomason MD, Tenant Relations Coordinator CLIA: [id number] Erythrocyte Sedimentation Rate (ESR), Automated 31 <26 mm/hr R-Y-Lqdosqma Protein (CRP) Reviewed date:10/10/2024 01:29:24 PM Interpretation: Performing Lab: Notes/Report: Test performed by [facility] [address] [place] [address] [place] [address] Ramirez Thomason MD, Tenant Relations Coordinator CLIA: [id number] C-Reactive Protein (CRP) 0.05 <0.50 mg/dL CCP Antibodies Reviewed date:10/10/2024 01:29:24 PM Interpretation: Performing Lab: Notes/Report: Test performed by [facility] [address] [place] [address] [place] [address] Ramirez Thomason MD, Tenant Relations Coordinator CLIA: [id number] CCP Antibodies <0.5 <0.5-3.0 U/mL P-CBC with Diff plus Absolut e Counts Reviewed date:10/10/2024 01:29:24 PM Interpretation: Performing Lab: Notes/Report: Test performed by [facility], [address], [place] [address] Ramirez Thomason MD, Tenant Relations Coordinator CLIA: [id number] WBC 6.7 3.8-11.5 K/uL Red Blood Cell [...] Neg Gluc Neg ultrasound : thyroid Reviewed date:10/10/2024 01:29:24 PM Interpretation: Performing Lab: Notes/Report: P-Vitamin D 25-Hydroxy Reviewed date:10/10/2024 01:29:24 PM Interpretation: Performing Lab: Notes/Report: Test performed by [facility], [address] , [address], [place] [address] Ramirez Thomason MD, Tenant Relations Coordinator CLIA: [id number] Vitamin D 25-Hydroxy 16.0 30.0-100.0 ng/mL Interpretation of Vitamin D 25 OH: < 20 ng/mL - Deficiency 20 - 29 ng/mL - Insufficiency 30 - 100 ng/mL - Sufficiency > 100 ng/mL - Super-therapeutic- toxicity may occur above this level. Clinical correlation required. P-TSH Reviewed date:10/10/2024 01:29:24 PM Interpretation: Performing Lab: Notes/Report: Test performed by [facility] [address] [place] [address] , [address], [place] [address] Ramirez Thomason MD, Tenant Relations Coordinator CLIA: [id number] TSH 1.84 0.43-5.25 mU/L P-T4 Free (thyroxine) Reviewed date:10/10/2024 01:29:24 PM Interpretation: Performing Lab: Notes/Report: Test performed by [facility] [address] , [address], [place] [address] Ramirez Thomason MD, Tenant Relations Coordinator CLIA: [id number] Thyroxine Free (free T4) 1.00 0.86-1.76 ng/dL P-Comprehensive Metabolic Pa rickie (CMP) Reviewed date:10/10/2024 01:29:24 PM Interpretation: Performing Lab: Notes/Report: Test performed by [facility] [address] [place] [address] , [address], [place] [address] Ramirez Thomason MD, Tenant Relations Coordinator CLIA: [id number] Sodium 140 135-145 mmol/L Potassium 4.3 3.5-5.3 [...] 0.5 <0.2-1.2 mg/dL A/G Ratio 1.6 1.1-2.5 P-Basic Metabolic Panel (BMP ) Reviewed date:05/10/2024 08:42:35 AM Interpretation: Performing Lab: Notes/Report: Test performed by [facility] [address] [place] [address] , [address], [place] [address] Ramirez Thomason MD, Tenant Relations Coordinator CLIA: [id number] Sodium 140 135-145 mmol/L Potassium 3.9 3.5-5.3 mmol/L Chloride 105 97-108 mmol/L CO2 21 22-32 mmol/L Glucose 92 65-99 mg/dL BUN 13 6-20 mg/dL Creatinine 0.85 0.50-1.00 mg/dL Calcium 9.5 8.6-10.4 mg/dL eGFR by Creatinine 89 >59 mL/min/1.73m2 P-T4 Free (thyroxine) Reviewed date:05/10/2024 08:42:35 AM Interpretation: Performing Lab: Notes/Report: Test performed by [facility] [address] , [address], [place] [address] Ramirez Thomason MD, Tenant Relations Coordinator CLIA: [id number] Thyroxine Free (free T4) 1.09 0.86-1.76 ng/dL P-Thyroid Antibody Panel (TA BS) Reviewed date:05/10/2024 08:42:35 AM Interpretation: Performing Lab: Notes/Report: Test performed by [facility] [address] , [address], [place] [address] Ramirez Thomason MD, Tenant Relations Coordinator CLIA: [id number] Thyroid Peroxidase Antibody 17 <9-34 IU/mL An [...] Interpretation: Performing Lab: Notes/Report: Test performed by [facility] [address] [place] [address] , [address], [place] [address] Ramirez Thomason MD, Tenant Relations Coordinator CLIA: [id number] TSH 2.34 0.43-5.25 mU/L ultrasound : thyroid Reviewed date:05/16/2024 10:25:23 AM Interpretation:right thyroid nodule, consider f/u in 6-12 months Performing Lab: Notes/Report: right thyroid nodule, consider f/u in 6-12 months Holter - 7 day Reviewed date:12/04/2024 03:41:37 PM Interpretation:PVC's and PAC's Performing Lab: Notes/Report: PVC's and PAC's P-Antinuclear Antibodies (AN A) Screen Reviewed date:10/10/2024 01:29:24 PM Interpretation: Performing Lab: Notes/Report: Test performed by [facility] [address] [place] [address] , [address], [place] [address] Ramirez Thomason MD, Tenant Relations Coordinator CLIA: [id number] Antinuclear Antibodies (ROSARIO) Screen Positive Negative This test is perform ed by Multiplex Bead Immunoassay methodology. ultrasound : thyroid Reviewed date:03/28/2025 11:58:00 AM [...] Performing Lab: Notes/Report: Urinalysis - Inhouse Reviewed date:10/25/2024 04:50:35 PM Interpretation: Performing Lab: Notes/Report: Color/Clarity yellow/clear Leuk Neg Nitrite Neg Urobili 3.2 Protein Neg pH 5.0 Blood Neg Sp. Gr. 1.020 Ketone Neg Bili Neg Gluc Neg Q-X-Dqvlyjzg Protein (CRP), High Sensitivity Reviewed date:11/01/2024 11:56:22 AM Interpretation:Normal Performing Lab: Notes/Report: Test performed by [facility] [address] [place], [place] [address] [address] , [place] [address] Ramirez Thomason MD, Tenant Relations Coordinator CLIA: [id number] C-Reactive Protein (CRP), High Sensitivity 0.30 <3.01 [...] Interpretation:Normal Performing Lab: Notes/Report: Test performed by [facility] [address] [place] [address] [place] [address] Ramirez Thomason MD, Tenant Relations Coordinator CLIA: [id number] Erythrocyte Sedimentation Rate (ESR), Automated 5 <26 mm/hr P-T4 Free (thyroxine) Reviewed date:11/01/2024 11:56:22 AM Interpretation:Normal Performing Lab: Notes/Report: Test performed by [facility] [address] [place] [address] , [place] [address] Ramirez Thomason MD, Tenant Relations Coordinator CLIA: [id number] Thyroxine Free (free T4) 1.09 0.86-1.76 ng/dL P-Thyroid Antibody Panel (TA BS) Reviewed date:11/01/2024 11:56:22 AM Interpretation:Thyroglobulin antibody 234.0 Performing Lab: Notes/Report: Test performed by [facility] [address] [place] [address] [address], [place] [address] Ramirez Thomason MD, Tenant Relations Coordinator CLIA: [id number] Thyroid Peroxidase Antibody 13 <9-34 IU/mL An [...] Interpretation:Normal Performing Lab: Notes/Report: Test performed by [facility] [address] [place] [address] [address], [place] [address] Ramirez Thomason MD, Tenant Relations Coordinator CLIA: [id number] TSH 1.94 0.43-5.25 mU/L TEN-Vaginal Infection panel Reviewed date:11/01/2024 11:56:22 AM Interpretation:Abnormal Performing Lab: Notes/Report: Abnormal X ray : KUB Reviewed date:11/01/2024 01:33:36 PM Interpretation:No Significant Constipation Performing Lab: Notes/Report: No Significant Constipation Reason For Referral Diagnosis 1 Rheumatoid arthritis involving multiple sites, unspecified whether rheumatoid factor present (M06.9) [facility]erring Provider First Name Sally Referring Provider Last Name Tasha Referring Provider Speciality Physician Staff Psychiatrist Referred Provider Rheumatology, . Referred Provider Specialty Rheumatology General Notes Sally Cordova 05/09 2:03:24 PM > [facility] RheumatologyIman Brynn 05/13/2024 11:59:53 AM > faxed to [facility] Scheduling Referral Priority Routine Reason patient needs to see endocrinology Diagnosis 1 Thyroid nodule (E04. 1) [facility] Referring Provider First Name Sally Referring Provider Last Name Tasha Referring Provider Speciality Physician Staff Psychiatrist Referred Provider Specialty Endocrinolog y General Notes Radha Valerio 024 1:18:17 PM > faxed to [facility] Endocrinology, Radha Valerio 05/20/2024 1:25:55 PM > appt 05/22/2024 at 10:00am Referral Priority Routine Diagnosis 1 Constipation, unspec ified constipation type (K59.00) Referral Organization [facility] Referring Provider First Name Sally Referring Provider Last Name Tasha Referring Provider Speciality Physician Staff Psychiatrist Referred Provider BRIDGETTE CASILLAS Referred Provider Specialty Gastroentero logy General Notes Radha Valerio 024 8:38:27 AM > faxed to [facility] Gastroenterology, Radha Valerio 06/17/2024 9:54:40 AM > spoke with Rudy; resent faxIman Brynn 06/19/2024 11:09:11 AM > confirmed order received with Rudy Referral Priority Routine Reason Thyroid enlargement Diagnosis 1 Thyromegaly (E04.9) Diagnosis 2 Enlarged thyroid (E0 4.9) Diagnosis 3 Thyroid nodule (E04. 1) Referral Organization [facility] Referring Provider First Name Sally Referring Provider Last Name Tasha Referring Provider Speciality Physician Staff Psychiatrist Referred Organization [facility] Referred Address [address] [place] [address], [address],[place], [id number], Referred Provider Specialty ENT General Notes Radha Valerio 2024 01:17:24 PM > faxed to [facility] ENTIman Brynn 10/11/2024 08:51:34 AM > 10/15/2024 Referral Priority Routine Diagnosis 1 Acute back pain with sciatica (M54.40) Referral Organization [facility] Referring Provider First Name Sally Referring Provider Last Name Tasha Referring Provider Speciality Physician Staff Psychiatrist Referred Provider Specialty Neurological Surgery General Notes Radha Valerio 2024 08:23:08 AM > faxed to [facility] Scheduling Referral Priority Routine Diagnosis 1 Acute back pain with sciatica (M54.40) Referral Organization [facility] Referring Provider First Name Sally Referring Provider Last Name Tasha Referring Provider Speciality Physician Staff Psychiatrist Referred Provider Specialty Physical The rapist General Notes Radha Valerio 2024 08:24:07 AM > faxed to [facility] PT Referral Priority Routine Medications Medication SIG (Take, Route, Frequency, Duration) Notes Start Date End Date Status Meclizine HCl 25 mg TAKE ONE TABLET BY M OUT THREE TIMES DAILY NEEDED; Duration: 7 Active DULoxetine HCl 60 mg 1 capsule orally on ce a day; Duration: 30 days Active Vitamin D (Ergocalciferol) 1.25 MG (32815 UT) 1 capsule Orally once a week; [...] Immunizations Vaccine Route Administration Date Status Comme [facility] COVID 19 Moderna Unknown 05/10/2021 Administered xFluzone (6mos and older)-trivalent Unknown 04/14/2010 Administered xFluzone (6mos and older)-trivalent Unknown 06/16/2014 Administered Problems Problem Type SNOMED Code ICD Code Onset Dates Problem Status W/U Status Risk Notes Problem Gastroesophageal reflux disease (653982669) GERD (gastroesophage al reflux disease) (K21.9) Active confirmed Problem Vitamin D deficiency (50553856) Vitamin D deficiency (E55.9) Active confirmed Problem Hypertension (15830133) Hypertension (I10) Active confirmed Problem Goiter (4424457) Enlarged thyroid (E04.9) Active confirmed Problem Mixed anxiety and depressive disorder (465257319) Depression with anxiety (F41.8) Active confirmed Problem Acute constipation (342548006) Acute constipation (K59.00) Active confirmed Problem Thyromegaly (5917890) Thyromegaly (E04.9) Active confirmed Problem Right bundle branch block (89637156) Right bundle branch block (I45.10) Active confirmed Problem Obesity (625941544) Obesity (BMI 30-39.9) (E66.9) Active confirmed Problem Thyroid nodule (088910917) Thyroid nodule (E04.1) Active confirmed Problem Constipation (47910310) Constipation, unspecified constipation type (K59.00) Active confirmed Problem Migraine (55109742) Migraine without status migrainosus, not intractable, unspecified migraine type (G43.909) Active confirmed Problem 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 Problem Fibrocystic breast changes (66385044) Fibrocystic changes of right breast (N60.11) Active confirmed Problem Acute back pain with sciatica (938886996) Acute back pain with sciatica (M54.40) Active confirmed Problem Obesity (554271024) Non morbid obesity (E66.9) Active confirmed Problem Hematuria syndrome (14894563) Hematuria, unspecified type (R31.9) Active confirmed Problem Seasonal allergic rhinitis (370069802) Seasonal allergic rhinitis, unspecified trigger (J30.2) Active confirmed Problem Rheumatoid arthritis (93122455) Rheumatoid arthritis involving multiple sites, unspecified whether rheumatoid factor present (M06.9) Active confirmed Vital Signs Heart Rate 100 /min 04/08/2025 Blood pressure diastolic 78 mm Hg 04/08/2025 Height 67 in 04/08/2025 Blood pressure systolic 120 mm Hg 04/08/2025 Weight 170 lbs 04/08/2025 BMI 26.62 kg/m2 04/08/2025 Encounters Encounter Location Date Provider Diagnosis [facility] [address] [place], [place] [id number] 05/09/2024 Sally Crowdy Thyroid nodule E04.1 and Rheumatoid arthritis involving multiple sites, unspecified whether rheumatoid factor present M06.9 [facility] [address] [place], [place] [id number] 07/05/2024 Sally Tasha Acute vaginitis N76. 0 [facility] [address] [place], [place] [id number] 08/20/2024 Maggy Quiroz Breast pain, right N64.4 and Fibrocystic changes of right breast N60.[address] [facility] [address] [place] [id number] 10/03/2024 Sally Crowdy Palpitations R00.2 ; Acute vaginitis N76.0 ; Thyroid nodule E04.1 ; Vitamin D deficiency E55.9 and Rheumatoid arthritis involving multiple sites, unspecified whether rheumatoid factor present M06.9 [facility] [address] [place] [id number] 10/25/2024 Sally Crowdy Thyroid nodule E04.1 ; Acute vaginitis N76.0 ; Rheumatoid arthritis involving multiple sites, unspecified whether rheumatoid factor present M06.9 and BMI 29.0-29.9,adult Z68.[address] [facility] [address] [place] [id number] 12/26/2024 Sally Crowdy Rheumatoid arthritis involving multiple sites, unspecified whether rheumatoid factor present M06.9 ; Thyroid nodule E04.1 ; Fatigue, unspecified type R53.83 ; Palpitations R00.2 ; Vitamin D deficiency E55.9 and Body aches R52 [facility] [address] [place] [id number] 02/17/2025 Maggy Quiroz Abdominal pain R10.9 and Acute constipation K59.[address] [facility] [address] [place] [id number] 03/27/2025 Sally Crowdy Muscle spasm of back M62.[address] [facility] [address] [place], [place] [id number] 04/08/2025 Maggy Quiroz Acute back pain with sciatica M54.[address] [facility] [address] [place] [id number] 05/15/2024 Sally Crowdy [facility] [address] [place] [id number] 05/31/2024 Sally Crowdy [facility] [address] [place], [place] [id number] 06/12/2024 Sally Crowdy Constipation, unspecified constipation type K59.00 [facility] [address] [place], [place] [id number] 06/21/2024 Sally Crowdy [facility] [address] [place] [id number] 07/10/2024 Sally Crowdy [facility] [address] [place], [place] [id number] 07/29/2024 Sally Crowdy [facility] [address] [place] [id number] 08/02/2024 Sally Crowdy [facility] [address] [place] [id number] 08/20/2024 Sally Crowdy [facility] [address] [place] [id number] 08/29/2024 Sally Crowdy [facility] [address] [place] [id number] 09/11/2024 Sally Crowdy [facility] [address] [place] [id number] 09/28/2024 Sally Crowdy [facility] [address] [place] [id number] 10/04/2024 Sally Crowdy [facility] [address] [place] [id number] 10/09/2024 Sally Crowdy [facility] [address] [place] [id number] 10/10/2024 Sally Crowdy [facility] [address] [place] [id number] 10/24/2024 Sally Crowdy [facility] [address] [place] [id number] 10/30/2024 Sally Crowdy Constipation, unspecified constipation type K59.00 [facility] [address] [place] [id number] 11/01/2024 Sally Crowdy [facility] [address] [place] [id number] 12/16/2024 Sally Crowdy [facility] [address] [place] [id number] 01/15/2025 Sally Crowdy [facility] [address] [place] [id number] 02/07/2025 Sally Crowdy [facility] [address] [place] [id number] 02/18/2025 Maggy Quiroz [facility] [address] [place] [id number] 03/18/2025 Sally Crowdy [facility] [address] [place] [id number] 03/29/2025 Sally Crowdy [facility] [address] [place] [id number] 03/29/2025 Sally Crowdy [facility] [address] [place] [id number] 03/31/2025 Sally Crowdy [facility] [address] [place], [place] [id number] 04/10/2025 Maggy Quiroz [facility] [address] [place], [place] [id number] 04/14/2025 Maggy Quiroz Assessments Encounter Date Diagnosis (ICD [...] Coverage Start Date Coverage End Date [employer] [facility] [id number] [place] [id number] MIRACLEANATAMMY Self - patient is the insured Medications [...] Ablation 12/2012 Colonoscopy 2014 Hysterectomy- Dr. Perea, [facility] 11/30/2014 Laperoscopy 11/19/2019 Colonoscopy, 1 Polyp Removed, Repeat 3 Y ears 02/22/2023 Thyroid Nodule Biopsy 10/22/2024 Hospitalization History Reason Date(Month/Year) Abdominal Pain, Vomiting- [facility], [place] 02/05-05/2023 Abdominal Pain, Vomiting- H 12/29-07/2022 Abdominal Pain, Vomiting- [facility] ER 023 Abdominal Pain, Vomiting- [facility] ER 023 Elevated BP- [facility] ER 07/15/2021 Aura Migraine- [facility] ER 03/13/2020 Abdominal Pain, Constipation- [facility] 12/17- Migraine- [facility] ER 06/20/2018 Migraine, Lumbar Puncture- [facility] 04/04-2017
--- OUTSIDE RECORDS SUMMARY | 2025-04-16 08:58 | XMS_ITS | Clinical Summary ---
Author Organization Healthcare Address [address] [place] [address] Care Team Providers Care Roadside Mechanic Name Role Phone Pcp, No Primary Care [...] 3 - 19+ 3-dose series) 03/25/2016 02/26/2016 [id number] Vaccine (2 - season) 2025 05/10/2021 UKY-Influenza [...] patient's age to complete this topic Insurance [facility] MEDICAID Care Teams Roadside Mechanic Relationship Specialty Start Date End Date Pcp, [place] [address] PCP - General Family Medicine 10/14/21
[2025-04-16] MEDS: KETOROLAC 15MG/ML VIAL 15 MG IV (14:41)
[2025-04-16 16:00] VITALS: BP 121/69; PULSE 82; RESP 16; TEMP 36.9; O2SAT 97
--- NOTE | 2025-04-16 17:05 | PC.NURSE ---
Aox 4, up ad hudson, pain meds along with nausea meds given several times this shift, iv abx given, NG TO LWS, midline incision c/d/i, 20g R AC with LR @ 125, 20G L H sl.
[2025-04-16 20:00] VITALS: BP 131/77; PULSE 119; RESP 12; TEMP 36.7; O2SAT 97
[2025-04-16] MEDS: PANTOPRAZOLE 40MG VIAL 40 MG IV (20:04)
[2025-04-17] MEDS: HYDROMORPHONE 2MG/ML SYRINGE 1 MG IV ×5 (02:30→19:54)
--- NOTE | 2025-04-17 03:27 | PC.NURSE ---
Pt is A&OX4 and has tolerated room air. She has complained of abdominal pain multiple times this shift and was medicated per AUG. Midline dressing has remained c/d/i.Ng has remained to low wall suction. Receiving IV antibiotics. She has ambulated to the bathroom with standby assist. No complaints at this time, call light within reach.
[2025-04-17 04:00] VITALS: BP 128/83; PULSE 120; RESP 14; TEMP 36.8; O2SAT 95; BMI 31.2
[2025-04-17] MEDS: AMPICILLIN SODIUM/SULBACTAM 3 GM in 0.9 % SODIUM CHLORIDE 100 ML IV ×2 (04:18→10:20)
[2025-04-17] MEDS: LACTATED RINGERS 1000ML 1,000 ML 125 ML IV (04:18)
[2025-04-17 06:23] LABS: Hematocrit 29.4 % (37.0-47.0); Hemoglobin 10.0 g/dL (12.2-16.2); Immature Granulocytes % 0.6 %; Mean Corpuscular HGB Conc 34.0 g/dL (31.8-35.4); Mean Corpuscular Hemoglobin 29.9 pg (27.0-31.2); Mean Corpuscular Volume 87.8 fl (81-99); Nucleated Red Blood Cells % 0 %; Platelet Count 206 K/mm3 (142-424); Red Blood Count 3.35 M/mm3 (4.20-5.40); Red Cell Distribution Width-SD 38.6 fL; White Blood Count 7.1 K/mm3 (4.8-10.8)
[2025-04-17 06:32] LABS: Chloride 103 mmol/L (98-107)
[2025-04-17 06:33] LABS: Albumin Level 3.0 g/dl (3.5-5.0); Potassium 3.3 mmoL/L (3.5-5.1); Sodium 136 mmol/L (136-145)
[2025-04-17 06:36] LABS: Alanine Aminotransferase 80 U/L (12-78); Albumin/Globulin Ratio 1.2 (1.1-1.8); Alkaline Phosphatase 53 U/L (38-126); Anion Gap 9.3 mEq/L (5-15); Aspartate Amino Transferase 45 U/L (14-36); Bilirubin,Total 1.9 mg/dl (0.2-1.3); Blood Urea Nitrogen 7 mg/dl (7-17); Calcium 7.6 mg/dl (8.4-10.2); Carbon Dioxide 27 mmol/L (22.0-30.0); Creatinine Clearance Estimated 149 mL/min (50-200); Creatinine,Serum 0.70 mg/dl (0.52-1.04); Estimated Glomerular Filt Rate 93 ml/min (>60); GFR (African American) 112 ML/MIN (>60); Globulin 2.6 g/dL (1.3-3.2); Glucose 82 mg/dl (74-100); Total Protein,Serum 5.6 g/dl (6.3-8.2)
--- NOTE | 2025-04-17 06:41 | EXP.SURG.PN ---
Subjective Narrative: Patient complains of incisional pain. However, she states she does feel much better than she did preoperatively. Exam Data for Last 24 hours Vital signs and Labs for Last 24 Hours: Temp Pulse Resp BP Pulse Ox O2 Del Method O2 Flow Rate 98.2 F 120 H 14 128/83 95 Room Air 2 04/17/25 04:00 04/17/25 04:00 04/17/25 04:00 04/17/25 04:00 04/17/25 04:00 04/17/25 06:36 04/16/25 04:00 Laboratory Results - last 24 hr 04/16/25 05:30: Hgb 10.3 L D, Sodium 135 L, Potassium 3.6, Chloride 103, Carbon Dioxide 26, Anion Gap 9.6, BUN 10, Creatinine 0.70, Estimated Creat Clear 149, Estimated GFR 93, Est GFR ( Amer) 112, Glucose 86, Calcium 7.7 L 04/17/25 05:29: WBC 7.1 D, RBC 3.35 L, Hgb 10.0 L, Hct 29.4 L, MCV 87.8, MCH 29.9, MCHC 34.0, RDW 11.9, Plt Count 206, MPV 9.6, Neut % (Auto) 80.2 H, Lymph % (Auto) 11.5, [place] % (Auto) 6.1, Eos % (Auto) 1.3, Baso % (Auto) 0.3, Neut # (Auto) 5.7, Lymph # (Auto) 0.8, [place] # (Auto) 0.4, Eos # (Auto) 0.1, Baso # (Auto) 0.0 I & O for Last 24 hours: Intake & Output 04/14/25 04/15/25 04/16/25 04/17/25 11:59 11:59 11:59 11:59 Intake Total 1000 / 1000 2932.084 / 2932.084 2300 / 2300 Output Total 1400 / 1400 650 / 650 Balance 1000 / 1000 1532.084 / 8794.954 0992 / 1650 Weight 170 lb 194 lb 6 oz 194 lb 5.999 oz Progress Note: A&P Assessment and plan (1) Cecal volvulus: Status: Acute Assessment and plan: Continue n.p.o. for now. May plan for placement of nasogastric tube to gravity drain later. Add scheduled Toradol for pain. Increase ambulation.
[2025-04-17] MEDS: KETOROLAC 30MG/ML VIAL 30 MG IV ×3 (07:01→18:49)
[2025-04-17 08:00] VITALS: BP 119/69; PULSE 102; RESP 16; TEMP 36.6; O2SAT 95
--- NOTE | 2025-04-17 08:20 | EXP.ACUTE.PN ---
Subjective *Date: 04/17/25 *Time: 08:26 Interval history: Patient is feeling a little bit better today. Still having a lot of pain. NG is still draining quite a bit. She is able to get up to the bathroom with help. Medical Exam Vital signs and Labs for Last 24 Hours: Vital Signs Temp Pulse Resp BP Pulse Ox O2 Del Method 04/17/25 06:36 Room Air 04/17/25 05:00 Room Air 04/17/25 04:00 98.2 F 120 H 14 128/83 95 Room Air 04/17/25 03:00 Room Air 04/17/25 01:00 Room Air 04/16/25 23:00 Room Air 04/16/25 21:00 Room Air 04/16/25 20:00 Room Air 04/16/25 20:00 98.1 F 119 H 12 131/77 97 Room Air 04/16/25 18:05 Room Air 04/16/25 16:06 Room Air 04/16/25 16:00 98.5 F 82 16 121/69 97 Room Air 04/16/25 12:47 Room Air 04/16/25 08:38 Room Air Intake and Output 04/16/25 04/17/25 04/17/25 19:59 03:59 11:59 Intake Total 1100 / 2300 100 / 2300 1100 / 2300 Output Total 0 / 750 650 / 750 100 / 750 Balance 1100 / 1550 -550 / 1550 1000 / 1550 Intake: Intake, Total IV Amount 1100 / 2300 100 / 2300 1100 / 2300 Ampicillin Sodium/Sulbactam 3 100 / 300 100 / 300 100 / 300 gm In 0.9 % Sodium Chloride 100 ml @ 200 mls/hr IV Q6H [facility] Rx# :[id number] Lactated Ringers 1000ML 1,000 1000 / 2000 1000 / 2000 ml @ 125 mls/hr IV .Q8H KADEN Rx# :[id number] Output: Output, Urine Amount 0 / 650 650 / 650 Output, Gastric Drainage Amount 100 / 100 Left Nare 100 / 100 Other: Number of Unmeasured Voids 1 1 Weight 194 lb 5.999 oz Patient Weight 04/17/25 11:59 Weight 194 lb 5.999 oz Laboratory Results - last 24 hr 04/17/25 05:29: WBC 7.1 D, RBC 3.35 L, Hgb 10.0 L, Hct 29.4 L, MCV 87.8, MCH 29.9, MCHC 34.0, RDW 11.9, Plt Count 206, MPV 9.6, Neut % (Auto) 80.2 H, Lymph % (Auto) 11.5, [place] % (Auto) 6.1, Eos % (Auto) 1.3, Baso % (Auto) 0.3, Neut # (Auto) 5.7, Lymph # (Auto) 0.8, [place] # (Auto) 0.4, Eos # (Auto) 0.1, Baso # (Auto) 0.0, Sodium 136, Potassium 3.3 L, Chloride 103, Carbon Dioxide 27, Anion Gap 9.3, BUN 7 D, Creatinine 0.70, Estimated Creat Clear 149, Estimated GFR 93, Est GFR ( Amer) 112, Glucose 82, Calcium 7.6 L, Total Bilirubin 1.9 H, AST 45 H D, ALT 80 H D, Alkaline Phosphatase 53, Total Protein 5.6 L D, Albumin 3.0 L, Globulin 2.6, Albumin/Globulin Ratio 1.2 I & O for Labs for Last 24 Hours: Intake & Output 04/14/25 04/15/25 04/16/25 04/17/25 11:59 11:59 11:59 11:59 Intake Total 1000 / 1000 2932.084 / 2932.084 2300 / 2300 Output Total 1400 / 1400 750 / 750 Balance 1000 / 1000 1532.084 / 4737.605 0509 / 1550 Weight 170 lb 194 lb 6 oz 194 lb 5.999 oz Constitutional: Present no acute distress Respiratory: Present CTA bilaterally Cardiac: Present Reg Rate and Rhythm GI: Present soft, tenderness (around surgical site) and diminished bowel sounds; Absent distention Extremities: Absent edema Skin: Present intact Neuro: Present alert, awake and oriented x 3 Assessment and Plan *Assessment and plan (1) Cecal volvulus: Status: Acute Category: Medical Code(s): K56.2 - Volvulus (2) Rheumatoid arthritis: Status: Acute Category: Medical Code(s): M06.9 - Rheumatoid arthritis, unspecified (3) Hyperlipidemia: Status: Chronic Qualifiers: Hyperlipidemia type: other hyperlipidemia Qualified Code(s): E78.49 - Other hyperlipidemia Category: Medical Code(s): E78.5 - Hyperlipidemia, unspecified (4) Vitamin D deficiency: Status: Chronic Category: Medical Code(s): E55.9 - Vitamin D deficiency, unspecified (5) Hypokalemia: Status: Acute Category: Medical Code(s): E87.6 - Hypokalemia (6) Elevated liver enzymes: Status: Acute Category: Medical Code(s): R74.8 - Abnormal levels of other serum enzymes Plan Surgery to follow. Will continue NG, IVF's, pain medication, and will supplement potassium. Dr. Dior entry Saw patient, agree with above note.
[2025-04-17] MEDS: D5W/0.45% NaCl w/40mEq KCl 1,000 ML 100 ML IV ×2 (11:18→22:01)
[2025-04-17 16:00] VITALS: BP 134/81; PULSE 74; RESP 16; TEMP 36.7; O2SAT 100
--- NOTE | 2025-04-17 16:14 | PC.NURSE ---
Drainage bag attached to NG tube per md's request. Very little greenish brown liquid drainage noted at this time. VS stable. Pain treated with scheduled and prn medications. patient encouraged to ambulate, patient stated pain is bad with movement, md aware of pain. VS stable and patient remained on room air.
--- NOTE | 2025-04-17 18:52 | PC.NURSE ---
patient ambulated 100 ft, tolerated well
[2025-04-17 20:00] VITALS: BP 146/89; PULSE 102; RESP 14; TEMP 36.7; O2SAT 100
[2025-04-17] MEDS: PANTOPRAZOLE 40MG VIAL 40 MG IV (22:02)
[2025-04-18] MEDS: KETOROLAC 30MG/ML VIAL 30 MG IV ×4 (03:09→20:01)
[2025-04-18 04:00] VITALS: BP 125/73; PULSE 91; RESP 14; TEMP 36.7; O2SAT 95; BMI 31.2
--- NOTE | 2025-04-18 06:42 | EXP.SURG.PN ---
Subjective Narrative: Patient's NG tube placed to gravity drain yesterday afternoon. No output. Inadvertently pulled out in her sleep approximately 4 AM. Instructed to leave it out. Exam Data for Last 24 hours Vital signs and Labs for Last 24 Hours: Temp Pulse Resp BP Pulse Ox O2 Del Method O2 Flow Rate 98.1 F 91 H 14 125/73 95 Room Air 2 04/18/25 04:00 04/18/25 04:00 04/18/25 04:00 04/18/25 04:00 04/18/25 04:00 04/18/25 06:39 04/16/25 04:00 Laboratory Results - last 24 hr 04/17/25 05:29: Sodium 136, Potassium 3.3 L, Chloride 103, Carbon Dioxide 27, Anion Gap 9.3, BUN 7 D, Creatinine 0.70, Estimated Creat Clear 149, Estimated GFR 93, Est GFR ( Amer) 112, Glucose 82, Calcium 7.6 L, Total Bilirubin 1.9 H, AST 45 H D, ALT 80 H D, Alkaline Phosphatase 53, Total Protein 5.6 L D, Albumin 3.0 L, Globulin 2.6, Albumin/Globulin Ratio 1.2 I & O for Last 24 hours: Intake & Output 04/15/25 04/16/25 04/17/25 04/18/25 11:59 11:59 11:59 11:59 Intake Total 1000 / 1000 2932.084 / 2932.084 3000 / 3000 1000 / 1000 Output Total 1400 / 1400 750 / 750 Balance 1000 / 1000 1532.084 / 8364.750 7243 / 2250 1000 / 1000 Weight 170 lb 194 lb 6 oz 194 lb 5.999 oz 194 lb 5.999 oz Constitutional Comments: Resting comfortably Progress Note: A&P Assessment and plan (1) Cecal volvulus: Status: Acute Assessment and plan: Leave NG tube out. May give Dulcolax suppository. (2) Rheumatoid arthritis: Status: Acute (3) Hyperlipidemia: Status: Chronic (4) Vitamin D deficiency: Status: Chronic (5) Hypokalemia: Status: Acute (6) Elevated liver enzymes: Status: Acute
--- NOTE | 2025-04-18 06:43 | PC.NURSE ---
pt called out around 3am stating she woke up and her ng tube was out. no n/v, distended abd or belching at this time, pt knows to let nursing know if this occurs. active bowel sounds in al four quads. notified donovanran and he said okay to leave out.
[2025-04-18 07:45] VITALS: BP 136/80; PULSE 88; RESP 16; TEMP 36.7; O2SAT 99
[2025-04-18 08:15] VITALS: O2SAT 99
[2025-04-18] MEDS: ONDANSETRON 4MG/2ML VIAL 4 MG IV (08:25)
--- NOTE | 2025-04-18 08:31 | EXP.ACUTE.PN ---
Subjective *Date: 04/18/25 *Time: 08:35 Interval history: Patient is feeling a little better today. She did pull her NG out while sleeping but has not had any vomiting or bloating. She is using less pain medication and was able to get up to the bathroom this am. She is nauseated after going to the bathroom. Medical Exam Vital signs and Labs for Last 24 Hours: Vital Signs Temp Pulse Resp BP Pulse Ox O2 Del Method 04/18/25 07:45 98.0 F 88 16 136/80 99 Room Air 04/18/25 06:39 Room Air 04/18/25 05:00 Room Air 04/18/25 04:00 98.1 F 91 H 14 125/73 95 Room Air 04/18/25 03:00 Room Air 04/18/25 01:00 Room Air 04/17/25 23:00 Room Air 04/17/25 21:00 Room Air 04/17/25 20:00 Room Air 04/17/25 20:00 98.1 F 102 H 14 146/89 H 100 Room Air 04/17/25 18:41 Room Air 04/17/25 17:05 Room Air 04/17/25 16:00 98.1 F 74 16 134/81 100 Room Air 04/17/25 15:10 Room Air 04/17/25 13:00 Room Air 04/17/25 11:00 Room Air 04/17/25 09:05 Room Air Intake and Output 04/17/25 04/18/25 04/18/25 19:59 03:59 11:59 Intake Total 1000 / 1000 Balance 1000 / 1000 Intake: Intake, Total IV Amount 1000 / 1000 D5W/0.45% NaCl w/40mEq KCl 1, 1000 / 1000 000 ml @ 100 mls/hr IV .Q10H [facility] Rx#:[id number] Other: Weight 194 lb 5.999 oz Patient Weight 04/18/25 11:59 Weight 194 lb 5.999 oz I & O for Labs for Last 24 Hours: Intake & Output 04/15/25 04/16/25 04/17/25 04/18/25 11:59 11:59 11:59 11:59 Intake Total 1000 / 1000 2932.084 / 2932.084 3000 / 3000 1000 / 1000 Output Total 1400 / 1400 750 / 750 Balance 1000 / 1000 1532.084 / 8547.022 3564 / 2250 1000 / 1000 Weight 170 lb 194 lb 6 oz 194 lb 5.999 oz 194 lb 5.999 oz Constitutional: Present no acute distress Respiratory: Present CTA bilaterally Cardiac: Present Reg Rate and Rhythm GI: Present soft, tenderness (around surgical site) and diminished bowel sounds; Absent distention Extremities: Absent edema Skin: Present intact Neuro: Present alert, awake and oriented x 3 Assessment and Plan *Assessment and plan (1) Cecal volvulus: Status: Acute Category: Medical Code(s): K56.2 - Volvulus (2) Rheumatoid arthritis: Status: Acute Category: Medical Code(s): M06.9 - Rheumatoid arthritis, unspecified (3) Hyperlipidemia: Status: Chronic Qualifiers: Hyperlipidemia type: other hyperlipidemia Qualified Code(s): E78.49 - Other hyperlipidemia Category: Medical Code(s): E78.5 - Hyperlipidemia, unspecified (4) Vitamin D deficiency: Status: Chronic Category: Medical Code(s): E55.9 - Vitamin D deficiency, unspecified (5) Hypokalemia: Status: Acute Category: Medical Code(s): E87.6 - Hypokalemia (6) Elevated liver enzymes: Status: Acute Category: Medical Code(s): R74.8 - Abnormal levels of other serum enzymes Plan Surgery to follow. Will continue IVF's, pain medication, and antiemetics. Dr. Dior entry - Saw patient, agree with above note. Ambulate in almazan today.
[2025-04-18] MEDS: BISACODYL 10MG SUPP 10 MG RC (08:45)
[2025-04-18] MEDS: HYDROMORPHONE 2MG/ML SYRINGE 1 MG IV ×3 (11:12→19:59)
[2025-04-18 13:07] VITALS: BMI 31.2
[2025-04-18 13:12] LABS: Hematocrit 30.3 % (37.0-47.0); Hemoglobin 10.3 g/dL (12.2-16.2); Immature Granulocytes % 0.2 %; Mean Corpuscular HGB Conc 34.0 g/dL (31.8-35.4); Mean Corpuscular Hemoglobin 29.7 pg (27.0-31.2); Mean Corpuscular Volume 87.3 fl (81-99); Nucleated Red Blood Cells % 0 %; Platelet Count 212 K/mm3 (142-424); Red Blood Count 3.47 M/mm3 (4.20-5.40); Red Cell Distribution Width-SD 37.7 fL; White Blood Count 4.1 K/mm3 (4.8-10.8)
[2025-04-18 13:25] LABS: Anion Gap 9.6 mEq/L (5-15); Blood Urea Nitrogen 5 mg/dl (7-17); Calcium 8.4 mg/dl (8.4-10.2); Carbon Dioxide 26 mmol/L (22.0-30.0); Chloride 105 mmol/L (98-107); Creatinine Clearance Estimated 173 mL/min (50-200); Creatinine,Serum 0.60 mg/dl (0.52-1.04); Estimated Glomerular Filt Rate 111 ml/min (>60); GFR (African American) 134 ML/MIN (>60); Glucose 108 mg/dl (74-100); Potassium 3.6 mmoL/L (3.5-5.1); Sodium 137 mmol/L (136-145)
[2025-04-18] MEDS: D5W/0.45% NaCl w/40mEq KCl 1,000 ML 100 ML IV (14:47)
[2025-04-18 16:00] VITALS: BP 120/80; PULSE 95; RESP 16; TEMP 36.3; O2SAT 97
[2025-04-18 18:59] VITALS: BMI 287839.3
[2025-04-18 19:35] VITALS: BP 129/71; PULSE 82; RESP 18; TEMP 36.4; O2SAT 99
[2025-04-18 20:00] VITALS: RESP 18; O2SAT 99
[2025-04-18] MEDS: PANTOPRAZOLE 40MG VIAL 40 MG IV (20:06)
[2025-04-18] MEDS: D5W/0.45% NaCl w/20mEq KCL 1,000 ML 75 ML IV (20:24)
[2025-04-19 04:00] VITALS: BP 127/69; PULSE 87; RESP 15; TEMP 36.8; O2SAT 96; BMI 29.6
[2025-04-19] MEDS: KETOROLAC 30MG/ML VIAL 30 MG IV ×3 (06:58→18:33)
[2025-04-19] MEDS: D5W/0.45% NaCl w/20mEq KCL 1,000 ML 75 ML IV ×2 (06:59→21:40)
[2025-04-19 07:43] VITALS: BP 123/77; PULSE 96; RESP 14; TEMP 36.8; O2SAT 97
--- NOTE | 2025-04-19 07:52 | INFXCTL.NOTE ---
Pt. is alert and orientated x 4. Pt. is on room air. Pt. S/p EX LAP for cecal Volvulus repair. Pt. has low midline abdominal incision. Dressing in place and is clean, dry and intact. Pt. c/o pain that ranged 3-9. Pt. medicated per MAR for pain. Pt. up to bathroom to void. States it hurt to move but she is tolerating it well. No nausea or vomiting, Bowel sounds hypoactive. Personal items and call kaur in reach. Bed in low and locked position. Safety measures in place.
--- NOTE | 2025-04-19 08:17 | EXP.ACUTE.PN ---
Subjective *Date: 04/19/25 *Time: 08:17 Interval history: Patient feels better today. She has been up walking in the hallway. SHe has less pain. She had a small bowel movement this morning. Medical Exam Vital signs and Labs for Last 24 Hours: Vital Signs Temp Pulse Resp BP Pulse Ox O2 Del Method 04/19/25 07:43 98.3 F 96 H 14 123/77 97 Room Air 04/19/25 07:00 Room Air 04/19/25 05:00 Room Air 04/19/25 04:00 98.2 F 87 15 127/69 96 Room Air 04/19/25 03:00 Room Air 04/19/25 01:00 Room Air 04/18/25 23:00 Room Air 04/18/25 21:00 Room Air 04/18/25 20:00 18 99 Room Air 04/18/25 19:35 97.6 F 82 18 129/71 99 Room Air 04/18/25 18:53 Room Air 04/18/25 17:05 Room Air 04/18/25 16:00 97.4 F L 95 H 16 120/80 97 Room Air 04/18/25 15:05 Room Air 04/18/25 13:10 Room Air 04/18/25 11:20 Room Air 04/18/25 09:20 Room Air Intake and Output 04/18/25 04/19/25 04/19/25 23:59 07:59 15:59 Intake Total 563.333 / 1683.333 921.25 / 921.25 Output Total 0 / 0 0 / 0 Balance 563.333 / 1683.333 921.25 / 921.25 Intake: Intake, Oral Amount 120 / 120 Intake, Total IV Amount 563.333 / 1563.333 801.25 / 801.25 D5W/0.45% NaCl w/20mEq KCL 1, 801.25 / 801.25 000 ml @ 75 mls/hr IV .[id number] [facility] Rx#:[id number] D5W/0.45% NaCl w/40mEq KCl 1, 563.333 / 1563.333 000 ml @ 100 mls/hr IV .Q10H KADEN Rx#:[id number] Output: Output, Urine Amount 0 / 0 0 / 0 Other: Number of Unmeasured Voids 1 1 Weight 178 lb 5.663 oz 184 lb 8 oz Patient Weight 04/19/25 23:59 Weight 184 lb 8 oz Laboratory Results - last 24 hr 04/18/25 12:58: WBC 4.1 L D, RBC 3.47 L, Hgb 10.3 L, Hct 30.3 L, MCV 87.3, MCH 29.7, MCHC 34.0, RDW 11.7, Plt Count 212, MPV 9.0, Neut % (Auto) 70.3, Lymph % (Auto) 17.2, [place] % (Auto) 7.5, Eos % (Auto) 4.6, Baso % (Auto) 0.2, Neut # (Auto) 2.9, Lymph # (Auto) 0.7, [place] # (Auto) 0.3, Eos # (Auto) 0.2, Baso # (Auto) 0.0, Sodium 137, Potassium 3.6, Chloride 105, Carbon Dioxide 26, Anion Gap 9.6, BUN 5 L D, Creatinine 0.60, Estimated Creat Clear 173, Estimated GFR 111, Est GFR ( Amer) 134, Glucose 108 H, Calcium 8.4 I & O for Labs for Last 24 Hours: Intake & Output 04/16/25 04/17/25 04/18/25 04/19/25 23:59 23:59 23:59 23:59 Intake Total 3132.084 / 3132.084 2900 / 2900 1563.333 / 1683.333 921.25 / 921.25 Output Total 1400 / 1750 750 / 750 0 / 0 0 / 0 Balance 1732.084 / 5776.437 1337 / 2150 1563.333 / 1683.333 921.25 / 921.25 Weight 194 lb 6 oz 194 lb 5.999 oz 178 lb 5.663 oz 184 lb 8 oz Constitutional: Present no acute distress Respiratory: Present CTA bilaterally Cardiac: Present Reg Rate and Rhythm GI: Present soft, tenderness (around surgical site) and normal bowel sounds; Absent distention Extremities: Absent edema Skin: Present intact Neuro: Present alert, awake and oriented x 3 Assessment and Plan *Assessment and plan (1) Cecal volvulus: Status: Acute Category: Medical Code(s): K56.2 - Volvulus (2) Rheumatoid arthritis: Status: Acute Category: Medical Code(s): M06.9 - Rheumatoid arthritis, unspecified (3) Hyperlipidemia: Status: Chronic Qualifiers: Hyperlipidemia type: other hyperlipidemia Qualified Code(s): E78.49 - Other hyperlipidemia Category: Medical Code(s): E78.5 - Hyperlipidemia, unspecified (4) Vitamin D deficiency: Status: Chronic Category: Medical Code(s): E55.9 - Vitamin D deficiency, unspecified (5) Hypokalemia: Status: Acute Category: Medical Code(s): E87.6 - Hypokalemia (6) Elevated liver enzymes: Status: Acute Category: Medical Code(s): R74.8 - Abnormal levels of other serum enzymes Plan Patient is POD #4, s/p cecal resection and partial right hemicolectomy. She is doing well, continue routine post op care.
--- NOTE | 2025-04-19 11:30 | EXP.SURG.PN ---
Subjective Patient reports: no new complaints Narrative: Has passed flatus, and 2 funny BMs since suppository yesterday. No n/v. Tolerating CLD. Feels like she probably isn't ambulating enough, and admits she has a poor pain tolerance. Exam Data for Last 24 hours Vital signs and Labs for Last 24 Hours: Temp Pulse Resp BP Pulse Ox O2 Del Method O2 Flow Rate 98.3 F 96 H 14 123/77 97 Room Air 2 04/19/25 07:43 04/19/25 07:43 04/19/25 07:43 04/19/25 07:43 04/19/25 07:43 04/19/25 09:15 04/16/25 04:00 Laboratory Results - last 24 hr 04/18/25 12:58: WBC 4.1 L D, RBC 3.47 L, Hgb 10.3 L, Hct 30.3 L, MCV 87.3, MCH 29.7, MCHC 34.0, RDW 11.7, Plt Count 212, MPV 9.0, Neut % (Auto) 70.3, Lymph % (Auto) 17.2, [place] % (Auto) 7.5, Eos % (Auto) 4.6, Baso % (Auto) 0.2, Neut # (Auto) 2.9, Lymph # (Auto) 0.7, [place] # (Auto) 0.3, Eos # (Auto) 0.2, Baso # (Auto) 0.0, Sodium 137, Potassium 3.6, Chloride 105, Carbon Dioxide 26, Anion Gap 9.6, BUN 5 L D, Creatinine 0.60, Estimated Creat Clear 173, Estimated GFR 111, Est GFR ( Amer) 134, Glucose 108 H, Calcium 8.4 I & O for Last 24 hours: Intake & Output 04/16/25 04/17/25 04/18/25 04/19/25 23:59 23:59 23:59 23:59 Intake Total 3132.084 / 3132.084 2900 / 2900 1563.333 / 1683.333 921.25 / 921.25 Output Total 1400 / 1750 750 / 750 0 / 0 0 / 0 Balance 1732.084 / 6243.308 5461 / 2150 1563.333 / 1683.333 921.25 / 921.25 Weight 194 lb 6 oz 194 lb 5.999 oz 178 lb 5.663 oz 184 lb 8 oz Constitutional Constitutional: no acute distress *Routine Abdominal Exam Abdominal: Present soft; Absent tenderness or distended Comments: absent bowel sounds. Dressing pulled back and incision inspected, clean and dry, no erythema. Progress Note: A&P Assessment and plan (1) Cecal volvulus: Status: Acute Assessment and plan: POD#4 s/p ileocecectomy. Has had some return of bowel function, lacking bowel sounds. ok to continue CLD. Would not advance before tomorrow. Encouraged ambulation, and educated patient on its benefits to recovery. Add oxycodone and Tylenol. Suspect pain control will be better with longer-acting oral meds. Continue scheduled Toradol, morphine or dilaudid PRN. Incentive spirometer ordered, pt instructed to use 10x/hour while awake. (2) Rheumatoid arthritis: Status: Acute (3) Hyperlipidemia: Status: Chronic (4) Vitamin D deficiency: Status: Chronic (5) Hypokalemia: Status: Acute (6) Elevated liver enzymes: Status: Acute
[2025-04-19] MEDS: ACETAMINOPHEN 500MG TAB 1000 MG PO ×2 (13:09→20:30)
[2025-04-19 16:00] VITALS: BP 138/74; PULSE 89; RESP 16; TEMP 36.8; O2SAT 98
--- NOTE | 2025-04-19 17:27 | PC.NURSE ---
Patient able to ambulate in almazan 4 times during shift, 1000 ft. VS stable, pain medicated with scheduled toradol and tylenol. Patient remained on room air. Incision site clean dry and intact.
[2025-04-19 20:00] VITALS: BP 132/84; PULSE 88; RESP 16; TEMP 36.9; O2SAT 99
[2025-04-19] MEDS: OXYCODONE 5MG IMMEDIATE RELEASE TABLET 10 MG PO (20:30)
[2025-04-19] MEDS: PANTOPRAZOLE 40MG VIAL 40 MG IV (20:30)
[2025-04-20] MEDS: KETOROLAC 30MG/ML VIAL 30 MG IV ×4 (00:45→18:21)
--- NOTE | 2025-04-20 03:45 | PC.NURSE ---
Patient is alert and oriented x4. She was observed to be resting in bed with eyes closed, respirations even and unlabored on room air, and no apparent distress throughout the majority of the night. Patient has had complaints of middle to lower right-sided abdominal pain (with/without palpating) this shift (pain described as burning sensations, tender, aching, moderate to severe) of which has been treated with scheduled Tylenol and Toradol, plus an as needed dose of OxyIR per MAR. Medications provided pain relief for the patient. Abdominal incision was assessed this shift; all subha remain intact, operative site is clean, and site is without redness and drainage. Abdomen is soft to touch. Patient has not had a bowel movement during this shift, but she does report passing gas when standing. Other scheduled medications were also administered per MAR. Reports having mild intermittent nausea while awake. Tolerating a clear liquid diet. SCDs were refused, patient ambulates independently in her room/to the bathroom without difficulties. Auscultation of heart, lungs, and bowels within normal findings. D5W/0.45% NaCl w/20 mEq KCl continues to infuse at 75 mL/hr. Incentive spirometer usage at the bedside. At this time, the patient is resting in bed without any further complaints. No acute changes noted thus far. Call light within reach.
[2025-04-20 04:00] VITALS: BP 124/75; PULSE 86; RESP 16; TEMP 36.6; O2SAT 97; BMI 29.0
[2025-04-20] MEDS: ACETAMINOPHEN 500MG TAB 1000 MG PO ×3 (04:55→21:15)
[2025-04-20 06:59] LABS: Hematocrit 29.3 % (37.0-47.0); Hemoglobin 9.7 g/dL (12.2-16.2); Immature Granulocytes % 0.4 %; Mean Corpuscular HGB Conc 33.1 g/dL (31.8-35.4); Mean Corpuscular Hemoglobin 29.2 pg (27.0-31.2); Mean Corpuscular Volume 88.3 fl (81-99); Nucleated Red Blood Cells % 0 %; Platelet Count 242 K/mm3 (142-424); Red Blood Count 3.32 M/mm3 (4.20-5.40); Red Cell Distribution Width-SD 38.4 fL; White Blood Count 2.9 K/mm3 (4.8-10.8)
[2025-04-20 07:05] LABS: Albumin Level 2.8 g/dl (3.5-5.0); Chloride 108 mmol/L (98-107); Potassium 4.0 mmoL/L (3.5-5.1); Sodium 137 mmol/L (136-145)
[2025-04-20 07:08] LABS: Alanine Aminotransferase 103 U/L (12-78); Albumin/Globulin Ratio 1.0 (1.1-1.8); Alkaline Phosphatase 48 U/L (38-126); Anion Gap 8.0 mEq/L (5-15); Aspartate Amino Transferase 85 U/L (14-36); Bilirubin,Total 0.8 mg/dl (0.2-1.3); Blood Urea Nitrogen 2 mg/dl (7-17); Carbon Dioxide 25 mmol/L (22.0-30.0); Creatinine Clearance Estimated 161 mL/min (50-200); Creatinine,Serum 0.60 mg/dl (0.52-1.04); Estimated Glomerular Filt Rate 111 ml/min (>60); GFR (African American) 134 ML/MIN (>60); Globulin 2.7 g/dL (1.3-3.2); Total Protein,Serum 5.5 g/dl (6.3-8.2)
[2025-04-20 07:09] LABS: Calcium 8.1 mg/dl (8.4-10.2); Glucose 88 mg/dl (74-100)
[2025-04-20 08:00] VITALS: BP 123/80; PULSE 83; RESP 16; TEMP 36.7; O2SAT 98
--- NOTE | 2025-04-20 09:44 | P.PN_ITS ---
Subjective *Date: 04/20/25 *Time: 09:44 Interval history: Patient did well overnight. Wants more to eat. Medical Exam Vital signs and Labs for Last 24 Hours: Vital Signs Temp Pulse Pulse Resp BP Pulse Ox O2 Del Method 04/20/25 08:00 98.1 F 83 16 123/80 98 Room Air 04/20/25 07:30 Room Air 04/20/25 06:45 Room Air 04/20/25 05:00 Room Air 04/20/25 04:00 97.8 F 86 16 124/75 97 Room Air 04/20/25 03:00 Room Air 04/20/25 01:00 Room Air 04/19/25 23:00 Room Air 04/19/25 21:00 Room Air 04/19/25 20:00 Room Air 04/19/25 20:00 98.4 F 88 16 132/84 99 Room Air 04/19/25 18:40 Room Air 04/19/25 17:10 Room Air 04/19/25 16:00 98.3 F 89 16 138/74 98 Room Air 04/19/25 15:10 Room Air 04/19/25 13:10 Room Air 04/19/25 11:00 Room Air Intake and Output 04/19/25 04/20/25 04/20/25 23:59 07:59 15:59 Intake Total 1549.167 / 2990.417 180 / 180 Output Total 0 / 0 0 / 0 Balance 1549.167 / 2990.417 180 / 180 Intake: Intake, Oral Amount 120 / 760 180 / 180 Intake, Total IV Amount 1429.167 / 2230.417 D5W/0.45% NaCl w/20mEq KCL 1, 992.5 / 1793.75 000 ml @ 75 mls/hr IV .[id number] [facility] Rx#:[id number] D5W/0.45% NaCl w/40mEq KCl 1, 436.667 / 436.667 000 ml @ 100 mls/hr IV .Q10H [facility] Rx#:[id number] Output: Output, Urine Amount 0 / 0 0 / 0 Other: Number of Unmeasured Voids 1 1 Weight 180 lb 4.8 oz Patient Weight 04/20/25 23:59 Weight 180 lb 4.8 oz Laboratory Results - last 24 hr 04/20/25 06:25: WBC 2.9 L D, RBC 3.32 L, Hgb 9.7 L, Hct 29.3 L, MCV 88.3, MCH 29.2, MCHC 33.1, RDW 12.0, Plt Count 242, MPV 9.2, Neut % (Auto) 54.0, Lymph % (Auto) 26.3, [place] % (Auto) 11.2 H, Eos % (Auto) 7.4, Baso % (Auto) 0.7, Neut # (Auto) 1.5 L, Lymph # (Auto) 0.8, [place] # (Auto) 0.3, Eos # (Auto) 0.2, Baso # (Auto) 0.0, Sodium 137, Potassium 4.0, Chloride 108 H, Carbon Dioxide 25, Anion Gap 8.0, BUN 2 L D, Creatinine 0.60, Estimated Creat Clear 161, Estimated GFR 111, Est GFR ( Amer) 134, Glucose 88, Calcium 8.1 L, Total Bilirubin 0.8, AST 85 H, ALT 103 H, Alkaline Phosphatase 48, Total Protein 5.5 L, Albumin 2.8 L , Globulin 2.7, Albumin/Globulin Ratio 1.0 L I & O for Labs for Last 24 Hours: Intake & Output 04/17/25 04/18/25 04/19/25 04/20/25 23:59 23:59 23:59 23:59 Intake Total 2900 / 2900 1563.333 / 6557.555 6149.417 / 2990.417 180 / 180 Output Total 750 / 750 0 / 0 0 / 0 0 / 0 Balance 2150 / 2150 1563.333 / 1540.898 4173.417 / 2990.417 180 / 180 Weight 194 lb 5.999 oz 178 lb 5.663 oz 184 lb 8 oz 180 lb 4.8 oz Constitutional: Present no acute distress Respiratory: Present CTA bilaterally Cardiac: Present Reg Rate and Rhythm GI: Present soft, tenderness (around surgical site) and normal bowel sounds; Absent distention Extremities: Absent edema Skin: Present intact Neuro: Present alert, awake and oriented x 3 Assessment and Plan *Assessment and plan (1) Cecal volvulus: Status: Acute Category: Medical Code(s): K56.2 - Volvulus (2) Rheumatoid arthritis: Status: Acute Category: Medical Code(s): M06.9 - Rheumatoid arthritis, unspecified (3) Hyperlipidemia: Status: Chronic Qualifiers: Hyperlipidemia type: other hyperlipidemia Qualified Code(s): E78.49 - Other hyperlipidemia Category: Medical Code(s): E78.5 - Hyperlipidemia, unspecified (4) Vitamin D deficiency: Status: Chronic Category: Medical Code(s): E55.9 - Vitamin D deficiency, unspecified (5) Hypokalemia: Status: Acute Category: Medical Code(s): E87.6 - Hypokalemia (6) Elevated liver enzymes: Status: Acute Category: Medical Code(s): R74.8 - Abnormal levels of other serum enzymes Plan POD #5, doing well, advance to full liquid diet.
--- NOTE | 2025-04-20 10:53 | P.PN_ITS ---
Subjective Narrative: Feels better today. The pain pills helped. Ambulated more, did IS up to 2000 mL. Tolerated clears, eager to advance diet. +Flatus. no BM today. Exam Data for Last 24 hours Vital signs and Labs for Last 24 Hours: Temp Pulse Resp BP Pulse Ox O2 Del Method O2 Flow Rate 98.1 F 83 16 123/80 98 Room Air 2 04/20/25 08:00 04/20/25 08:00 04/20/25 08:00 04/20/25 08:00 04/20/25 08:00 04/20/25 09:00 04/16/25 04:00 Laboratory Results - last 24 hr 04/20/25 06:25: WBC 2.9 L D, RBC 3.32 L, Hgb 9.7 L, Hct 29.3 L, MCV 88.3, MCH 29.2, MCHC 33.1, RDW 12.0, Plt Count 242, MPV 9.2, Neut % (Auto) 54.0, Lymph % (Auto) 26.3, [place] % (Auto) 11.2 H, Eos % (Auto) 7.4, Baso % (Auto) 0.7, Neut # (Auto) 1.5 L, Lymph # (Auto) 0.8, [place] # (Auto) 0.3, Eos # (Auto) 0.2, Baso # (Auto) 0.0, Sodium 137, Potassium 4.0, Chloride 108 H, Carbon Dioxide 25, Anion Gap 8.0, BUN 2 L D, Creatinine 0.60, Estimated Creat Clear 161, Estimated GFR 111, Est GFR ( Amer) 134, Glucose 88, Calcium 8.1 L, Total Bilirubin 0.8, AST 85 H, ALT 103 H, Alkaline Phosphatase 48, Total Protein 5.5 L, Albumin 2.8 L , Globulin 2.7, Albumin/Globulin Ratio 1.0 L I & O for Last 24 hours: Intake & Output 04/17/25 04/18/25 04/19/25 04/20/25 23:59 23:59 23:59 23:59 Intake Total 2900 / 2900 1563.333 / 2258.583 2260.417 / 2990.417 180 / 180 Output Total 750 / 750 0 / 0 0 / 0 0 / 0 Balance 2150 / 2150 1563.333 / 8124.998 7207.417 / 2990.417 180 / 180 Weight 194 lb 5.999 oz 178 lb 5.663 oz 184 lb 8 oz 180 lb 4.8 oz Progress Note: A&P Assessment and plan (1) Cecal volvulus: Status: Acute Assessment and plan: POD#5 s/p ileocectomy. Doing well. Has return of bowel function and bowel sounds. Tolerated CLD, advance to full liquid diet. Ok to shower. Pain is better controlled with oral narcotics. No BM today. Dulcolax supp x 1. (2) Rheumatoid arthritis: Status: Acute (3) Hyperlipidemia: Status: Chronic (4) Vitamin D deficiency: Status: Chronic (5) Hypokalemia: Status: Acute (6) Elevated liver enzymes: Status: Acute
[2025-04-20] MEDS: ONDANSETRON 4MG/2ML VIAL 4 MG IV (13:31)
[2025-04-20 16:00] VITALS: BP 146/70; PULSE 81; RESP 16; TEMP 36.7; O2SAT 98
--- NOTE | 2025-04-20 18:13 | PC.NURSE ---
VS stable, patient able to ambulate three times around unit, 750 ft and tolerated well. Pain controlled with scheduled meds, zofran given once for nausea.
[2025-04-20 20:00] VITALS: BP 147/92; PULSE 83; RESP 16; TEMP 36.6; O2SAT 99
[2025-04-20] MEDS: PANTOPRAZOLE 40MG VIAL 40 MG IV (21:15)
[2025-04-20] MEDS: OXYCODONE 5MG IMMEDIATE RELEASE TABLET 10 MG PO (21:30)
[2025-04-21] MEDS: KETOROLAC 30MG/ML VIAL 30 MG IV ×4 (00:50→18:22)
[2025-04-21] MEDS: HYDROMORPHONE 2MG/ML SYRINGE 1 MG IV ×2 (02:30→20:00)
--- NOTE | 2025-04-21 03:45 | PC.NURSE ---
Patient remains alert and oriented x4. She was observed to be resting in bed with eyes closed, respirations even and unlabored on room air, and no apparent distress throughout the majority of the night. Patient continues to have complaints of middle to lower right-sided abdominal pain. Scheduled Tylenol and Toradol continue to be given per MAR. An as needed dose of OxyIR and a dose of Dilautid (for breakthrough pain) were also given per MAR due to severe pain in between. Abdominal incision with subha remain clean, dry, and intact; open to air. Abdomen is soft and tender to touch. Mild, yellow discoloration noted across abdomen. No bowel movement this shift, reports passing some gas. Ambulates without difficulties. Other scheduled medications were also administered per MAR. No nausea reported this shift. Full liquid diet. Auscultation of heart, lungs, and bowels remain within normal findings. At this time, the patient is resting in bed without any further complaints. No acute changes noted thus far. Call light within reach.
[2025-04-21 04:00] VITALS: BP 124/80; PULSE 90; RESP 16; TEMP 36.6; O2SAT 97; BMI 28.1
[2025-04-21] MEDS: ACETAMINOPHEN 500MG TAB 1000 MG PO ×3 (06:10→20:00)
[2025-04-21 07:39] VITALS: BP 136/85; PULSE 83; RESP 16; TEMP 36.5; O2SAT 99
--- NOTE | 2025-04-21 07:51 | EXP.PN ---
Subjective *Date: 04/21/25 *Time: 08:53 Interval history: Patient improves each day. She continues to have some breakthrough pain. She is ambulating well and independently. She is not passing flatus and has not had an additional stool. She did not have a suppository yesterday. She denies any chest pain and shortness of breath. She has had a slight cough. She is on a full liquid diet and is eating very slowly. She has experienced some nausea but no vomiting. Exam Data for Last 24 hours Vital signs and Labs for Last 24 Hours: Temp Pulse Resp BP Pulse Ox O2 Del Method O2 Flow Rate 97.7 F 83 16 136/85 99 Room Air 2 04/21/25 07:39 04/21/25 07:39 04/21/25 07:39 04/21/25 07:39 04/21/25 07:39 04/21/25 07:39 04/16/25 04:00 I & O for Last 24 hours: Intake & Output 04/18/25 04/19/25 04/20/25 04/21/25 11:59 11:59 11:59 11:59 Intake Total 1000 / 1000 2604.583 / 2604.583 1949.167 / 6015.297 3341 / 2040 Output Total 0 / 0 0 / 0 0 / 0 Balance 1000 / 1000 2604.583 / 2604.583 194.167 / 4538.607 4591 / 2040 Weight 194 lb 5.999 oz 184 lb 8 oz 180 lb 4.8 oz 175 lb 3.2 oz Constitutional Constitutional: no acute distress Comments: Sitting up in the bed eating oatmeal and watching TV. She appears comfortable at this point. *Routine Respiratory Exam Respiratory: Present CTA bilaterally (Anteriorly and posteriorly) *Routine Cardiovascular Exam Cardiovascular: Present RRR *Routine Abdominal Exam Abdominal: Present soft, normoactive bowel sounds and tenderness (Postop pain); Absent distended *Routine Extremities Exam Extremities: Present pulses intact; Absent edema or calf tenderness *Routine Neurological Exam Neurological: Absent alert or oriented X3 Assessment and Plan *Assessment and plan (1) Cecal volvulus: Status: Acute Category: Medical Code(s): K56.2 - Volvulus (2) Rheumatoid arthritis: Status: Acute Category: Medical Code(s): M06.9 - Rheumatoid arthritis, unspecified (3) Hyperlipidemia: Status: Chronic Qualifiers: Hyperlipidemia type: other hyperlipidemia Qualified Code(s): E78.49 - Other hyperlipidemia Category: Medical Code(s): E78.5 - Hyperlipidemia, unspecified (4) Vitamin D deficiency: Status: Chronic Category: Medical Code(s): E55.9 - Vitamin D deficiency, unspecified (5) Hypokalemia: Status: Acute Category: Medical Code(s): E87.6 - Hypokalemia (6) Elevated liver enzymes: Status: Acute Category: Medical Code(s): R74.8 - Abnormal levels of other serum enzymes Plan Postop # 6-day. Patient will continue to ambulate. Suppository today. Surgery to follow. Dr. Dior entry - Saw patient, agree with above note. She should be able to discharge home soon.
[2025-04-21] MEDS: BISACODYL 10MG SUPP 10 MG RC (08:09)
[2025-04-21] MEDS: OXYCODONE 5MG IMMEDIATE RELEASE TABLET 10 MG PO (09:37)
[2025-04-21] MEDS: ONDANSETRON 4MG/2ML VIAL 4 MG IV ×2 (13:52→20:00)
--- NOTE | 2025-04-21 13:54 | EXP.SURG.PN ---
Subjective Narrative: Patient feels somewhat better. She is passing some gas but only mucus bowel movement with Dulcolax. Some right lower quadrant gas type pains. No bloating. Occasional postprandial nausea but no vomiting. Tolerating full liquids. Exam Data for Last 24 hours Vital signs and Labs for Last 24 Hours: Temp Pulse Resp BP Pulse Ox O2 Del Method O2 Flow Rate 97.7 F 83 16 136/85 99 Room Air 2 04/21/25 07:39 04/21/25 07:39 04/21/25 07:39 04/21/25 07:39 04/21/25 07:39 04/21/25 07:39 04/16/25 04:00 I & O for Last 24 hours: Intake & Output 04/19/25 04/20/25 04/21/25 04/22/25 11:59 11:59 11:59 11:59 Intake Total 2604.583 / 2604.583 1949.167 / 2949.167 2160 / 2160 Output Total 0 / 0 0 / 0 0 / 0 Balance 2604.583 / 2604.583 1949.167 / 2949.167 2160 / 2160 Weight 184 lb 8 oz 180 lb 4.8 oz 175 lb 3.2 oz *Routine Abdominal Exam Abdominal: Present soft; Absent distended Comments: Incision clean. Mild incisional tenderness. Progress Note: A&P Assessment and plan (1) Cecal volvulus: Status: Acute Assessment and plan: Slowly resolving postoperative ileus. Continue ambulation and current management. Pathology revealed large submucosal lipoma involving ileocecal valve, early acute appendicitis. (2) Rheumatoid arthritis: Status: Acute (3) Hyperlipidemia: Status: Chronic (4) Vitamin D deficiency: Status: Chronic (5) Hypokalemia: Status: Acute (6) Elevated liver enzymes: Status: Acute
[2025-04-21 15:35] VITALS: BP 130/82; PULSE 83; RESP 16; TEMP 36.9; O2SAT 99
--- NOTE | 2025-04-21 18:41 | PC.NURSE ---
pt resting in bed with family at bedside, No BM today, walked the halls several times, call ight in reach,
[2025-04-21 20:00] VITALS: BP 146/96; PULSE 78; RESP 12; TEMP 36.7; O2SAT 98
[2025-04-21] MEDS: PANTOPRAZOLE 40MG VIAL 40 MG IV (20:00)
[2025-04-22] MEDS: KETOROLAC 30MG/ML VIAL 30 MG IV (01:00)
--- NOTE | 2025-04-22 03:45 | PC.NURSE ---
No acute changes to report in accordance to previous nurse note (04/21/25 at 03:45).
[2025-04-22 04:00] VITALS: BP 135/79; PULSE 77; RESP 12; TEMP 37.1; O2SAT 95; BMI 28.1
[2025-04-22] MEDS: ACETAMINOPHEN 500MG TAB 1000 MG PO ×3 (04:35→20:30)
[2025-04-22] MEDS: HYDROMORPHONE 2MG/ML SYRINGE 1 MG IV ×5 (04:35→20:29)
--- NOTE | 2025-04-22 07:30 | P.PN_ITS ---
Subjective *Date: 04/22/25 *Time: 09:01 Interval history: Patient thinks she has made a little progress. She notes nausea after receiving oxycodone yesterday and thus has not taken any more. She is able to eat a little of her full liquid diet with each meal. She did have a suppository y esterday with no stool results. She did pass some flatus. She has ambulated in the hallway without difficulty. She is voiding QS. She denies chest pain and has shortness of breath only with ambulation. To note pathology report revealing large submucosal lipoma involving ilio cecal valve and early acute appendicitis Dr. Victor notes slowly resolving postoperative ileus Exam Data for Last 24 hours Vital signs and Labs for Last 24 Hours: Temp Pulse Resp BP Pulse Ox O2 Del Method O2 Flow Rate 98.8 F 77 12 135/79 95 Room Air 2 04/22/25 04:00 04/22/25 04:00 04/22/25 04:00 04/22/25 04:00 04/22/25 04:00 04/22/25 06:45 04/16/25 04:00 I & O for Last 24 hours: Intake & Output 04/19/25 04/20/25 04/21/25 04/22/25 11:59 11:59 11:59 11:59 Intake Total 2604.583 / 2604.583 1948.167 / 3092.577 1128 / 216 515 / 515 Output Total 0 / 0 0 / 0 0 / 0 0 / 0 Balance 2604.583 / 2604.583 1948.167 / 6502.424 4445 / 216 515 / 515 Weight 184 lb 8 oz 180 lb 4.8 oz 175 lb 3.2 oz 175 lb 3.186 oz Constitutional Constitutional: no acute distress *Routine Respiratory Exam Respiratory: Present CTA bilaterally (Anteriorly and posteriorly) *Routine Cardiovascular Exam Cardiovascular: Present RRR *Routine Abdominal Exam Abdominal: Present soft and tenderness (Mostly on the right of the incision.); Absent normoactive bowel sounds (Decrease in bowel sounds today) Comments: Incision with subha clean dry and intact *Routine Extremities Exam Extremities: Present pulses intact; Absent edema or calf tenderness *Routine Neurological Exam Neurological: Present alert and oriented X3 Assessment and Plan *Assessment and plan (1) Cecal volvulus: Status: Acute Category: Medical Code(s): K56.2 - Volvulus (2) Rheumatoid arthritis: Status: Acute Category: Medical Code(s): M06.9 - Rheumatoid arthritis, unspecified (3) Hyperlipidemia: Status: Chronic Qualifiers: Hyperlipidemia type: other hyperlipidemia Qualified Code(s): E78.49 - Other hyperlipidemia Category: Medical Code(s): E78.5 - Hyperlipidemia, unspecified (4) Vitamin D deficiency: Status: Chronic Category: Medical Code(s): E55.9 - Vitamin D deficiency, unspecified (5) Hypokalemia: Status: Acute Category: Medical Code(s): E87.6 - Hypokalemia (6) Elevated liver enzymes: Status: Acute Category: Medical Code(s): R74.8 - Abnormal levels of other serum enzymes (7) Postoperative ileus: Status: Acute Category: Medical Code(s): K91.89 - Other postprocedural complications and disorders of digestive system; K56.7 - Ileus, unspecified Plan Will repeat suppository today and also obtain CBC and CMP. No nausea at all at present. May need change in oxycodone. Continue with ambulation. Dr. Dior entry - Saw patient, probabale discharge later today.
[2025-04-22 07:49] LABS: Hematocrit 34.3 % (37.0-47.0); Hemoglobin 11.5 g/dL (12.2-16.2); Mean Corpuscular HGB Conc 33.5 g/dL (31.8-35.4); Mean Corpuscular Hemoglobin 29.3 pg (27.0-31.2); Mean Corpuscular Volume 87.3 fl (81-99); Platelet Count 300 K/mm3 (142-424); Red Blood Count 3.93 M/mm3 (4.20-5.40); White Blood Count 3.7 K/mm3 (4.8-10.8)
[2025-04-22 07:59] VITALS: BP 140/83; PULSE 84; RESP 20; TEMP 36.6; O2SAT 100
[2025-04-22 07:59] LABS: Chloride 103 mmol/L (98-107)
[2025-04-22 08:00] LABS: Albumin Level 3.3 g/dl (3.5-5.0); Potassium 3.9 mmoL/L (3.5-5.1); Sodium 138 mmol/L (136-145)
[2025-04-22 08:02] LABS: Alanine Aminotransferase 138 U/L (12-78); Aspartate Amino Transferase 72 U/L (14-36); Blood Urea Nitrogen 5 mg/dl (7-17); Creatinine Clearance Estimated 134 mL/min (50-200); Creatinine,Serum 0.70 mg/dl (0.52-1.04); Estimated Glomerular Filt Rate 93 ml/min (>60); GFR (African American) 112 ML/MIN (>60)
[2025-04-22 08:03] LABS: Albumin/Globulin Ratio 1.1 (1.1-1.8); Alkaline Phosphatase 67 U/L (38-126); Anion Gap 8.9 mEq/L (5-15); Bilirubin,Total 0.6 mg/dl (0.2-1.3); Calcium 8.4 mg/dl (8.4-10.2); Carbon Dioxide 30 mmol/L (22.0-30.0); Globulin 3.0 g/dL (1.3-3.2); Glucose 90 mg/dl (74-100); Total Protein,Serum 6.3 g/dl (6.3-8.2)
--- NOTE | 2025-04-22 08:03 | P.PN_ITS ---
Subjective Narrative: Patient feels like she is doing better. She has not taken oxycodone and has not had nausea. Tolerating full liquid diet. Passing gas but no bowel movement. Exam Data for Last 24 hours Vital signs and Labs for Last 24 Hours: Temp Pulse Resp BP Pulse Ox O2 Del Method O2 Flow Rate 97.9 F 84 20 140/83 100 Room Air 2 04/22/25 07:59 04/22/25 07:59 04/22/25 07:59 04/22/25 07:59 04/22/25 07:59 04/22/25 07:59 04/16/25 04:00 Laboratory Results - last 24 hr 04/22/25 07:41: WBC 3.7 L D, RBC 3.93 L, Hgb 11.5 L, Hct 34.3 L, MCV 87.3, MCH 29.3, MCHC 33.5, RDW 11.9, Plt Count 300, MPV 8.6, Neut % (Auto) 60.8, Lymph % (Auto) 24.3, [place] % (Auto) 7.9, Eos % (Auto) 6.0, Baso % (Auto) 0.5, Neut # (Auto) 2.2, Lymph # (Auto) 0.9, [place] # (Auto) 0.3, Eos # (Auto) 0.2, Baso # (Auto) 0.0 I & O for Last 24 hours: Intake & Output 04/19/25 04/20/25 04/21/25 04/22/25 11:59 11:59 11:59 11:59 Intake Total 2604.583 / 2604.583 1949.167 / 2949.167 2159 / 2159 1035 / 1035 Output Total 0 / 0 0 / 0 0 / 0 0 / 0 Balance 2604.583 / 2604.583 1949.167 / 2949.167 2160 / 2160 1035 / 1035 Weight 184 lb 8 oz 180 lb 4.8 oz 175 lb 3.2 oz 175 lb 3.186 oz *Routine Abdominal Exam Abdominal: Present soft; Absent tenderness Comments: Incision clean and intact. Progress Note: A&P Assessment and plan (1) Cecal volvulus: Status: Acute (2) Rheumatoid arthritis: Status: Acute (3) Hyperlipidemia: Status: Chronic (4) Vitamin D deficiency: Status: Chronic (5) Hypokalemia: Status: Acute (6) Elevated liver enzymes: Status: Acute (7) Postoperative ileus: Status: Acute Assessment and Plan Assessment and Plan for All Diagnoses:: Possible discharge.
[2025-04-22] MEDS: BISACODYL 10MG SUPP 10 MG RC (08:13)
[2025-04-22 08:43] LABS: Total Cells Counted 100
[2025-04-22 08:44] LABS: RBC Morphology Normal
--- NOTE | 2025-04-22 09:27 | PC.NURSE ---
per order I removed every other staple (total of 11) pt tolerated well
[2025-04-22] MEDS: ONDANSETRON 4MG/2ML VIAL 4 MG IV ×2 (12:07→17:38)
[2025-04-22 15:54] VITALS: BP 145/92; PULSE 89; RESP 20; TEMP 36.6; O2SAT 99
--- NOTE | 2025-04-22 16:59 | PC.NURSE ---
pt continues to feel worse today with no BM, walking very little today. PRN meds given as needed, call light in reach
[2025-04-22 20:00] VITALS: BP 131/79; PULSE 93; RESP 16; TEMP 36.8; O2SAT 98
[2025-04-22] MEDS: PANTOPRAZOLE 40MG VIAL 40 MG IV (20:31)
[2025-04-23] MEDS: ONDANSETRON 4MG/2ML VIAL 4 MG IV ×3 (00:23→22:03)
[2025-04-23] MEDS: HYDROMORPHONE 2MG/ML SYRINGE 1 MG IV ×5 (00:23→22:08)
[2025-04-23 04:00] VITALS: BP 129/79; PULSE 84; RESP 16; TEMP 36.7; O2SAT 98; BMI 28.0
[2025-04-23 06:41] LABS: Albumin Level 2.9 g/dl (3.5-5.0); Chloride 104 mmol/L (98-107); Sodium 136 mmol/L (136-145)
[2025-04-23 06:43] LABS: Potassium 3.6 mmoL/L (3.5-5.1)
[2025-04-23 06:44] LABS: Alanine Aminotransferase 130 U/L (12-78); Albumin/Globulin Ratio 1.1 (1.1-1.8); Amylase 41 U/L (30-110); Anion Gap 4.6 mEq/L (5-15); Aspartate Amino Transferase 81 U/L (14-36); Blood Urea Nitrogen 5 mg/dl (7-17); Calcium 8.0 mg/dl (8.4-10.2); Carbon Dioxide 31 mmol/L (22.0-30.0); Creatinine Clearance Estimated 134 mL/min (50-200); Creatinine,Serum 0.70 mg/dl (0.52-1.04); Estimated Glomerular Filt Rate 93 ml/min (>60); GFR (African American) 112 ML/MIN (>60); Globulin 2.7 g/dL (1.3-3.2); Glucose 81 mg/dl (74-100); Total Protein,Serum 5.6 g/dl (6.3-8.2)
[2025-04-23 06:46] LABS: Alkaline Phosphatase 62 U/L (38-126); Bilirubin,Total 0.5 mg/dl (0.2-1.3); Hematocrit 31.3 % (37.0-47.0); Hemoglobin 10.5 g/dL (12.2-16.2); Immature Granulocytes % 0.3 %; Lipase 40 U/L (23-300); Mean Corpuscular HGB Conc 33.5 g/dL (31.8-35.4); Mean Corpuscular Hemoglobin 29.2 pg (27.0-31.2); Mean Corpuscular Volume 86.9 fl (81-99); Nucleated Red Blood Cells % 0 %; Platelet Count 302 K/mm3 (142-424); Red Blood Count 3.60 M/mm3 (4.20-5.40); Red Cell Distribution Width-SD 38.0 fL; White Blood Count 3.7 K/mm3 (4.8-10.8)
[2025-04-23 08:00] VITALS: BP 129/82; PULSE 82; RESP 16; TEMP 36.6; O2SAT 96
[2025-04-23 08:15] VITALS: O2SAT 96
--- NOTE | 2025-04-23 08:15 | EXP.ACUTE.PN ---
Subjective *Date: 04/23/25 *Time: 08:38 Interval history: Patient is having worsening RLQ pain and nausea. She is able to eat but has not had a BM. She is normally constipated and can go weeks without a BM. She did vomit a little yesterday. Medical Exam Vital signs and Labs for Last 24 Hours: Vital Signs Temp Pulse Resp BP Pulse Ox O2 Del Method 04/23/25 06:51 Room Air 04/23/25 05:00 Room Air 04/23/25 04:00 98.0 F 84 16 129/79 98 Room Air 04/23/25 03:00 Room Air 04/23/25 01:00 Room Air 04/22/25 23:00 Room Air 04/22/25 21:00 Room Air 04/22/25 20:00 Room Air 04/22/25 20:00 98.3 F 93 H 16 131/79 98 Room Air 04/22/25 15:54 97.9 F 89 20 145/92 H 99 Room Air Intake and Output 04/22/25 04/23/25 04/23/25 19:59 03:59 11:59 Intake Total 200 / 200 Output Total 1 / 0 / 1 Balance 199 / 199 0 / 199 Intake: Intake, Oral Amount 200 / 200 Output: Output, Urine Amount / 0 / 1 Other: Number of Unmeasured Voids 0 1 Number of Bowel Movements 1 Weight 174 lb 14.4 oz Patient Weight 04/23/25 11:59 Weight 174 lb 14.4 oz Laboratory Results - last 24 hr 04/22/25 07:41: Total Counted 100, Neutrophils % (Manual) 61, Lymphocytes % (Manual) 23, Monocytes % (Manual) 5, Eosinophils % (Manual) 11 H, Platelet Estimate Normal, RBC Morphology Normal 04/23/25 05:52: WBC 3.7 L, RBC 3.60 L, Hgb 10.5 L, Hct 31.3 L, MCV 86.9, MCH 29.2, MCHC 33.5, RDW 11.9, Plt Count 302, MPV 8.9, Neut % (Auto) 54.5, Lymph % (Auto) 27.0, [place] % (Auto) 10.2 H, Eos % (Auto) 7.5, Baso % (Auto) 0.5, Neut # (Auto) 2.0, Lymph # (Auto) 1.0, [place] # (Auto) 0.4, Eos # (Auto) 0.3, Baso # (Auto) 0.0, Sodium 136, Potassium 3.6, Chloride 104, Carbon Dioxide 31 H, Anion Gap 4.6 L, BUN 5 L, Creatinine 0.70, Estimated Creat Clear 134, Estimated GFR 93, Est GFR ( Amer) 112, Glucose 81, Calcium 8.0 L, Total Bilirubin 0.5, AST 81 H, ALT 130 H, Alkaline Phosphatase 62, Total Protein 5.6 L, Albumin 2.9 L D, Globulin 2.7, Albumin/Globulin Ratio 1.1, Amylase 41, Lipase 40 I & O for Labs for Last 24 Hours: Intake & Output 04/20/25 04/21/25 04/22/25 04/23/25 11:59 11:59 11:59 11:59 Intake Total 1949.167 / 2949.167 2160 / 2160 1035 / 1035 200 / 200 Output Total 0 / 0 0 / 0 0 / 0 1 / 1 Balance 1949.167 / 2949.167 2160 / 2160 1035 / 1035 199 / 199 Weight 180 lb 4.8 oz 175 lb 3.2 oz 175 lb 3.186 oz 174 lb 14.4 oz Constitutional: Present no acute distress Respiratory: Present CTA bilaterally Cardiac: Present Reg Rate and Rhythm GI: Present soft, tenderness (around surgical site) and normal bowel sounds; Absent distention Extremities: Absent edema Skin: Present intact Neuro: Present alert, awake and oriented x 3 Assessment and Plan *Assessment and plan (1) Cecal volvulus: Status: Acute Category: Medical Code(s): K56.2 - Volvulus (2) Rheumatoid arthritis: Status: Acute Category: Medical Code(s): M06.9 - Rheumatoid arthritis, unspecified (3) Hyperlipidemia: Status: Chronic Qualifiers: Hyperlipidemia type: other hyperlipidemia Qualified Code(s): E78.49 - Other hyperlipidemia Category: Medical Code(s): E78.5 - Hyperlipidemia, unspecified (4) Vitamin D deficiency: Status: Chronic Category: Medical Code(s): E55.9 - Vitamin D deficiency, unspecified (5) Hypokalemia: Status: Acute Category: Medical Code(s): E87.6 - Hypokalemia (6) Elevated liver enzymes: Status: Acute Category: Medical Code(s): R74.8 - Abnormal levels of other serum enzymes (7) Postoperative ileus: Status: Acute Category: Medical Code(s): K91.89 - Other postprocedural complications and disorders of digestive system; K56.7 - Ileus, unspecified (8) RLQ abdominal pain: Status: Acute Category: Medical Code(s): R10.31 - Right lower quadrant pain Plan May need a CT of the abdomen as bowels are not moving. Will discuss with Dr. Dior. Liver enzymes are still elevated but stable. Dr. Dior entry - Saw patient, agree with above note, will check CT abd/pelvis with oral and IV contrast today.
--- NOTE | 2025-04-23 09:06 | EXP.SURG.PN ---
Subjective Narrative: Patient complains of some increased RLQ burning pain. Exam Data for Last 24 hours Vital signs and Labs for Last 24 Hours: Temp Pulse Resp BP Pulse Ox O2 Del Method O2 Flow Rate 98 F 82 16 129/82 96 Room Air 2 04/23/25 08:00 04/23/25 08:00 04/23/25 08:00 04/23/25 08:00 04/23/25 08:00 04/23/25 08:00 04/16/25 04:00 Laboratory Results - last 24 hr 04/23/25 05:52: WBC 3.7 L, RBC 3.60 L, Hgb 10.5 L, Hct 31.3 L, MCV 86.9, MCH 29.2, MCHC 33.5, RDW 11.9, Plt Count 302, MPV 8.9, Neut % (Auto) 54.5, Lymph % (Auto) 27.0, [place] % (Auto) 10.2 H, Eos % (Auto) 7.5, Baso % (Auto) 0.5, Neut # (Auto) 2.0, Lymph # (Auto) 1.0, [place] # (Auto) 0.4, Eos # (Auto) 0.3, Baso # (Auto) 0.0, Sodium 136, Potassium 3.6, Chloride 104, Carbon Dioxide 31 H, Anion Gap 4.6 L, BUN 5 L, Creatinine 0.70, Estimated Creat Clear 134, Estimated GFR 93, Est GFR ( Amer) 112, Glucose 81, Calcium 8.0 L, Total Bilirubin 0.5, AST 81 H, ALT 130 H, Alkaline Phosphatase 62, Total Protein 5.6 L, Albumin 2.9 L D, Globulin 2.7, Albumin/Globulin Ratio 1.1, Amylase 41, Lipase 40 I & O for Last 24 hours: Intake & Output 04/20/25 04/21/25 04/22/25 04/23/25 11:59 11:59 11:59 11:59 Intake Total 1948.167 / 2949.167 21595 / 1035 200 / 200 Output Total 0 / 0 0 / 0 0 / 0 / Balance 1948.167 / 2949.167 2159 / 5 199 / 199 Weight 180 lb 4.8 oz 175 lb 3.2 oz 175 lb 3.186 oz 174 lb 14.4 oz *Routine Abdominal Exam Abdominal: Present soft and tenderness Comments: Incision clean Progress Note: A&P Assessment and plan (1) Cecal volvulus: Status: Acute (2) Rheumatoid arthritis: Status: Acute (3) Hyperlipidemia: Status: Chronic (4) Vitamin D deficiency: Status: Chronic (5) Hypokalemia: Status: Acute (6) Elevated liver enzymes: Status: Acute (7) Postoperative ileus: Status: Acute (8) RLQ abdominal pain: Status: Acute Assessment and Plan Assessment and Plan for All Diagnoses:: CT scan.
[2025-04-23] MEDS: DIATRIZOATE MEGLUMINE(GASTROGRAFIN) 66%-10% 120ML 30 ML PO (09:59)
--- NOTE | 2025-04-23 11:10 | CT_ITS ---
FINAL REPORT TECHNIQUE: Oral and IV contrast enhanced exam This study was performed with techniques to keep radiation doses as low as reasonably achievable, (ALARA). Individualized dose reduction techniques using automated exposure control or adjustment of mA and/or kV according to the patient's size were employed. CLINICAL HISTORY: Post op pain, surgery on Monday for twisted cecum COMPARISON: 04/15/2025 FINDINGS: CT ABDOMEN AND PELVIS WITH CONTRAST: Abdomen: Trace bilateral pleural effusions are present with mild atelectasis. The gallbladder is surgically absent. There are fatty changes of the left hepatic lobe. The spleen, pancreas and adrenal glands are unremarkable. Kidneys show no mass or obstruction. There is moderate fecal impaction of the colon. Pelvis: There are surgical changes along the cecal base, with wall thickening involving the ileocolic anastomosis, probably postoperative edema. No evidence of an abscess or contrast leak is seen. There is a small to moderate amount of free fluid in the pelvic cul-de-sac. No bowel obstruction is noted. Presumed appendectomy with cecal surgery. IMPRESSION: 1. No bowel obstruction, abscess, or pneumoperitoneum. 2. Wall thickening of the ileum near the ileocolic anastomosis, likely postoperative edema. Reviewed, Interpreted and Dictated by Marilu Headley MD Transcribed by Justine Walker Authenticated and [facility]
[2025-04-23] MEDS: IOPAMIDOL-370 (76%);100ML BOTTLE 75 ML IV (11:51)
[2025-04-23] MEDS: SODIUM CHLORIDE 0.9% 10ML SYR (RAD ONLY) 10 ML IV (11:51)
--- NOTE | 2025-04-23 11:54 | DIET.NUTRFU ---
Addendum entered by Edna Fallon RD, LD 04/24/25 10:43: Saw patient today, she was ordered a bland diet and was able to tolerate eggs and toast. Still c/o a dull pain but feels is is moving forward and ready to add a dietary supplement to help meet nutritional needs. This RD also recommend to continue protein supplement upon discharge to help regain strength. Suggested premier protein daily Original Note: RD reviewed patients nutrition secondary to unable to meet nutritional needs with full liquids x2 days, clear liquid prior that and NPO for GI sx. Total of 7 days since admit. She was noted to have a bowel movement on 04/22, it was mucus. She was noted to have RLQ burning pain. CT scan today. This RD expressed nutritional concern to provide for risk of malnutrition, would benefit from TPN if unable to advance diet to better meet needs. Will continue to follow
[2025-04-23] MEDS: ACETAMINOPHEN 500MG TAB 1000 MG PO ×2 (12:57→20:29)
[2025-04-23 15:39] VITALS: BP 154/84; PULSE 97; RESP 16; TEMP 36.6; O2SAT 97
[2025-04-23] MEDS: SODIUM PHOS/BIPHOSPHATE FLEET 133ML ENEMA 133 ML RC ×2 (15:42→21:03)
[2025-04-23 20:00] VITALS: BP 145/85; PULSE 95; RESP 16; TEMP 36.7; O2SAT 98
[2025-04-23] MEDS: PANTOPRAZOLE 40MG VIAL 40 MG IV (21:03)
[2025-04-24 04:00] VITALS: BP 122/74; PULSE 90; RESP 16; TEMP 36.9; O2SAT 96; BMI 28.1
[2025-04-24] MEDS: ACETAMINOPHEN 500MG TAB 1000 MG PO ×3 (06:22→21:27)
[2025-04-24] MEDS: HYDROMORPHONE 2MG/ML SYRINGE 1 MG IV ×4 (06:23→22:49)
--- NOTE | 2025-04-24 06:41 | EXP.SURG.PN ---
Subjective Narrative: Patient states that she is getting there . She has had a couple of enemas with some minimal result. Still with some right lower quadrant pain. Exam Data for Last 24 hours Vital signs and Labs for Last 24 Hours: Temp Pulse Resp BP Pulse Ox O2 Del Method O2 Flow Rate 98.4 F 90 16 122/74 96 Room Air 2 04/24/25 04:00 04/24/25 04:00 04/24/25 04:00 04/24/25 04:00 04/24/25 04:00 04/24/25 05:00 04/16/25 04:00 Laboratory Results - last 24 hr 04/23/25 05:52: WBC 3.7 L, RBC 3.60 L, Hgb 10.5 L, Hct 31.3 L, MCV 86.9, MCH 29.2, MCHC 33.5, RDW 11.9, Plt Count 302, MPV 8.9, Neut % (Auto) 54.5, Lymph % (Auto) 27.0, [place] % (Auto) 10.2 H, Eos % (Auto) 7.5, Baso % (Auto) 0.5, Neut # (Auto) 2.0, Lymph # (Auto) 1.0, [place] # (Auto) 0.4, Eos # (Auto) 0.3, Baso # (Auto) 0.0, Sodium 136, Potassium 3.6, Chloride 104, Carbon Dioxide 31 H, Anion Gap 4.6 L, BUN 5 L, Creatinine 0.70, Estimated Creat Clear 134, Estimated GFR 93, Est GFR ( Amer) 112, Glucose 81, Calcium 8.0 L, Total Bilirubin 0.5, AST 81 H, ALT 130 H, Alkaline Phosphatase 62, Total Protein 5.6 L, Albumin 2.9 L D, Globulin 2.7, Albumin/Globulin Ratio 1.1, Amylase 41, Lipase 40 I & O for Last 24 hours: Intake & Output 04/21/25 04/22/25 04/23/25 04/24/25 11:59 11:59 11:59 11:59 Intake Total 0 / 0 1035 / 1035 420 / 420 360 / 360 Output Total 0 / 0 0 / 0 1 / 1 0 / 0 Balance 2160 / 2160 1035 / 1035 419 / 419 360 / 360 Weight 175 lb 3.2 oz 175 lb 3.186 oz 174 lb 14.4 oz 175 lb 3.2 oz *Routine Abdominal Exam Abdominal: Present soft Comments: She does have some minimal bruising towards the right lower quadrant. Incision clean and intact. Progress Note: A&P Assessment and plan (1) Cecal volvulus: Status: Acute (2) Rheumatoid arthritis: Status: Acute (3) Hyperlipidemia: Status: Chronic (4) Vitamin D deficiency: Status: Chronic (5) Hypokalemia: Status: Acute (6) Elevated liver enzymes: Status: Acute (7) Postoperative ileus: Status: Acute (8) RLQ abdominal pain: Status: Acute Assessment and Plan Assessment and Plan for All Diagnoses:: Continue current care. Hopeful discharge soon
[2025-04-24 08:00] VITALS: BP 126/77; PULSE 96; RESP 16; TEMP 36.6; O2SAT 96
[2025-04-24 08:15] VITALS: O2SAT 96
--- NOTE | 2025-04-24 08:39 | EXP.ACUTE.PN ---
Subjective *Date: 04/24/25 *Time: 08:53 Interval history: Patient is feeling about the same today. She had a very tiny BM. She is still eating. She is still having right lower abdominal pain. Medical Exam Vital signs and Labs for Last 24 Hours: Vital Signs Temp Pulse Resp BP Pulse Ox O2 Del Method 04/24/25 08:00 98 F 96 H 16 126/77 96 Room Air 04/24/25 06:46 Room Air 04/24/25 05:00 Room Air 04/24/25 04:00 98.4 F 90 16 122/74 96 Room Air 04/24/25 03:00 Room Air 04/24/25 01:00 Room Air 04/23/25 23:00 Room Air 04/23/25 21:00 Room Air 04/23/25 20:00 98.1 F 95 H 16 145/85 H 98 Room Air 04/23/25 20:00 Room Air 04/23/25 18:45 Room Air 04/23/25 17:10 Room Air 04/23/25 15:39 98 F 97 H 16 154/84 H 97 Room Air 04/23/25 15:10 Room Air 04/23/25 13:10 Room Air 04/23/25 11:05 Room Air 04/23/25 09:10 Room Air Intake and Output 04/23/25 04/24/25 04/24/25 19:59 03:59 11:59 Intake Total 360 / 360 Output Total 0 / 0 Balance 360 / 360 0 / 360 Intake: Intake, Oral Amount 360 / 360 Output: Output, Urine Amount 0 / 0 Other: Number of Unmeasured Voids 1 Number of Bowel Movements 1 Weight 175 lb 3.2 oz Patient Weight 04/24/25 11:59 Weight 175 lb 3.2 oz I & O for Labs for Last 24 Hours: Intake & Output 04/21/25 04/22/25 04/23/25 04/24/25 11:59 11:59 11:59 11:59 Intake Total 2160 / 2160 1035 / 1035 420 / 420 360 / 360 Output Total 0 / 0 0 / 0 1 / 1 0 / 0 Balance 2160 / 2160 1035 / 1035 419 / 419 360 / 360 Weight 175 lb 3.2 oz 175 lb 3.186 oz 174 lb 14.4 oz 175 lb 3.2 oz Constitutional: Present no acute distress Respiratory: Present CTA bilaterally Cardiac: Present Reg Rate and Rhythm GI: Present soft, tenderness (around surgical site) and normal bowel sounds; Absent distention Extremities: Absent edema Skin: Present intact Neuro: Present alert, awake and oriented x 3 Assessment and Plan *Assessment and plan (1) Cecal volvulus: Status: Acute Category: Medical Code(s): K56.2 - Volvulus (2) Rheumatoid arthritis: Status: Acute Category: Medical Code(s): M06.9 - Rheumatoid arthritis, unspecified (3) Hyperlipidemia: Status: Chronic Qualifiers: Hyperlipidemia type: other hyperlipidemia Qualified Code(s): E78.49 - Other hyperlipidemia Category: Medical Code(s): E78.5 - Hyperlipidemia, unspecified (4) Vitamin D deficiency: Status: Chronic Category: Medical Code(s): E55.9 - Vitamin D deficiency, unspecified (5) Hypokalemia: Status: Acute Category: Medical Code(s): E87.6 - Hypokalemia (6) Elevated liver enzymes: Status: Acute Category: Medical Code(s): R74.8 - Abnormal levels of other serum enzymes (7) RLQ abdominal pain: Status: Acute Category: Medical Code(s): R10.31 - Right lower quadrant pain (8) Chronic constipation: Status: Acute Category: Medical Code(s): K59.09 - Other constipation Plan CT showed no bowel obstruction, abscess, or pneumoperitoneum. There was wall thickening of the ileum near the ileocolic anastomosis,likely postoperative edema. She had 2 enemas yesterday with very little movement. May need another enema today. Will discuss with Dr. Dior. Dr. Dior entry - Saw patient, agree with above note. Plan to increase Lactulose and start soap suds enemas today.
[2025-04-24] MEDS: ONDANSETRON 4MG/2ML VIAL 4 MG IV (13:35)
--- NOTE | 2025-04-24 15:03 | PC.NURSE ---
soap suds enema given at 1330 along with a dose of lactulose. gave about half and she said she couldn't hold the rest. she did have a liquid stool after but not much.
[2025-04-24 16:00] VITALS: BP 131/78; PULSE 101; RESP 18; TEMP 36.7; O2SAT 91
--- NOTE | 2025-04-24 18:07 | PC.NURSE ---
dr rosas has ordered the pt to have lactulose 4x per day along with a soap suds enema. i gave the first one at 1330 and she had a small, liquid bowel movement. i gave her the lactulose at 1730 but she was having a bowel movement at that time so the pt stated she did not want the enema. she did say that if nothing happened before the night dose at 2100 she would try the enema again.
[2025-04-24 20:00] VITALS: BP 125/78; PULSE 96; RESP 16; TEMP 36.8; O2SAT 96
[2025-04-24] MEDS: PANTOPRAZOLE 40MG VIAL 40 MG IV (21:27)
[2025-04-24] MEDS: TRAMADOL 50MG TABLET 50 MG PO (21:30)
[2025-04-25 04:00] VITALS: BP 107/59; PULSE 97; RESP 16; TEMP 36.9; O2SAT 97; BMI 27.3
[2025-04-25] MEDS: HYDROMORPHONE 2MG/ML SYRINGE 1 MG IV (04:13)
[2025-04-25] MEDS: ONDANSETRON 4MG/2ML VIAL 4 MG IV ×2 (04:14→13:09)
[2025-04-25] MEDS: ACETAMINOPHEN 500MG TAB 1000 MG PO ×2 (04:14→13:09)
[2025-04-25 08:00] VITALS: BP 110/67; PULSE 93; RESP 16; TEMP 36.5; O2SAT 99
--- NOTE | 2025-04-25 08:13 | EXP.ACUTE.PN ---
Subjective *Date: 04/25/25 *Time: 09:00 Interval history: Patient has had a few liquid BM's. She states her pain is no better and she is worried there is still a lot of solid stool stuck in the colon. She is eating. Medical Exam Vital signs and Labs for Last 24 Hours: Vital Signs Temp Pulse Resp BP Pulse Ox O2 Del Method 04/25/25 07:00 Room Air 04/25/25 05:00 Room Air 04/25/25 04:00 98.4 F 97 H 16 107/59 L 97 Room Air 04/25/25 03:00 Room Air 04/25/25 01:00 Room Air 04/24/25 23:00 Room Air 04/24/25 21:00 Room Air 04/24/25 20:00 Room Air 04/24/25 20:00 98.3 F 96 H 16 125/78 96 Room Air 04/24/25 18:59 Room Air 04/24/25 17:00 Room Air 04/24/25 16:00 98.0 F 101 H 18 131/78 91 L Room Air 04/24/25 15:10 Room Air 04/24/25 13:05 Room Air 04/24/25 11:20 Room Air 04/24/25 09:05 Room Air 04/24/25 08:15 96 Room Air Intake and Output 04/24/25 04/25/25 04/25/25 19:59 03:59 11:59 Intake Total 360 / 600 240 / 600 Output Total 0 / 0 0 / 0 Balance 360 / 600 240 / 600 Intake: Intake, Oral Amount 360 / 600 240 / 600 Output: Output, Urine Amount 0 / 0 0 / 0 Other: Number of Unmeasured Voids 1 1 Number of Bowel Movements 1 4 Weight 170 lb 1.6 oz Patient Weight 04/25/25 11:59 Weight 170 lb 1.6 oz I & O for Labs for Last 24 Hours: Intake & Output 04/22/25 04/23/25 04/24/25 04/25/25 11:59 11:59 11:59 11:59 Intake Total 1035 / 1035 420 / 420 600 / 600 600 / 600 Output Total 0 / 0 1 / 1 0 / 0 0 / 0 Balance 1035 / 1035 419 / 419 600 / 600 600 / 600 Weight 175 lb 3.186 oz 174 lb 14.4 oz 175 lb 3.2 oz 170 lb 1.6 oz Constitutional: Present no acute distress Respiratory: Present CTA bilaterally Cardiac: Present Reg Rate and Rhythm GI: Present soft, tenderness (around surgical site and in LLQ) and normal bowel sounds; Absent distention Extremities: Absent edema Skin: Present intact Neuro: Present alert, awake and oriented x 3 Assessment and Plan *Assessment and plan (1) Cecal volvulus: Status: Acute Category: Medical Code(s): K56.2 - Volvulus (2) Rheumatoid arthritis: Status: Acute Category: Medical Code(s): M06.9 - Rheumatoid arthritis, unspecified (3) Hyperlipidemia: Status: Chronic Qualifiers: Hyperlipidemia type: other hyperlipidemia Qualified Code(s): E78.49 - Other hyperlipidemia Category: Medical Code(s): E78.5 - Hyperlipidemia, unspecified (4) Vitamin D deficiency: Status: Chronic Category: Medical Code(s): E55.9 - Vitamin D deficiency, unspecified (5) Hypokalemia: Status: Acute Category: Medical Code(s): E87.6 - Hypokalemia (6) Elevated liver enzymes: Status: Acute Category: Medical Code(s): R74.8 - Abnormal levels of other serum enzymes (7) RLQ abdominal pain: Status: Acute Category: Medical Code(s): R10.31 - Right lower quadrant pain (8) Chronic constipation: Status: Acute Category: Medical Code(s): K59.09 - Other constipation Plan Patient may need abdominal imaging to see if she still has a large amount of stool in the colon before discharge. Will discuss with Dr. Dior. Dr. Dior entry - Saw patient, she had 4 bowel movements overnight. Likely home later today with Lactulose and Linzess treatment for constipation.
--- NOTE | 2025-04-25 11:15 | EXP.SURG.PN ---
Subjective Narrative: Patient doing well. Has had some results with enema. Anxious to go home. Still has some right lower quadrant pain. Exam Data for Last 24 hours Vital signs and Labs for Last 24 Hours: Temp Pulse Resp BP Pulse Ox O2 Del Method O2 Flow Rate 97.7 F 93 H 16 110/67 99 Room Air 2 04/25/25 08:00 04/25/25 08:00 04/25/25 08:00 04/25/25 08:00 04/25/25 08:00 04/25/25 10:46 04/16/25 04:00 I & O for Last 24 hours: Intake & Output 04/22/25 04/23/25 04/24/25 04/25/25 11:59 11:59 11:59 11:59 Intake Total 1035 / 1035 420 / 420 600 / 600 960 / 960 Output Total 0 / 0 1 / 1 0 / 0 0 / 0 Balance 1035 / 1035 419 / 419 600 / 600 960 / 960 Weight 175 lb 3.186 oz 174 lb 14.4 oz 175 lb 3.2 oz 170 lb 1.6 oz *Routine Abdominal Exam Abdominal: Present soft Comments: Incision clean Progress Note: A&P Assessment and plan (1) Cecal volvulus: Status: Acute (2) Rheumatoid arthritis: Status: Acute (3) Hyperlipidemia: Status: Chronic (4) Vitamin D deficiency: Status: Chronic (5) Hypokalemia: Status: Acute (6) Elevated liver enzymes: Status: Acute (7) RLQ abdominal pain: Status: Acute (8) Chronic constipation: Status: Acute Assessment and Plan Assessment and Plan for All Diagnoses:: Remove subha prior to discharge. Discharge home later.
[2025-04-25] MEDS: TRAMADOL 50MG TABLET 50 MG PO (13:09)
--- NOTE | 2025-04-25 13:47 | PC.NURSE ---
subha removed from abd surgical incision and steri-strips applied per Dr. Victor's VO. Follow up appointments have been made and medications reviewed.
--- NOTE | 2025-04-28 10:34 | SW/DCPLANNER ---
Spoke with patient on the phone. Patient stated that she is doing good. Patient stated that she is aware of her upcoming appointments. Patient stated that she was able to get her new medicine picked up from clinic pharamcy. Patient stated that she has no concerns or questions at this time. Ry Donahue
--- NOTE | 2025-04-28 10:44 | EXP.DC.SUM ---
General Admission date:: 04/15/25 Discharge date: 04/25/25 HPI HPI HPI: Patient is a 39-year-old female with a history of chronic constipation. She does take MiraLAX daily. She has tried and previously failed Linzess, Trulance, enemas, suppositories, magnesium citrate, probiotics, fiber supplementation, and Dulcolax. She has had previous regular colonoscopies with last colonoscopy revealing a single polyp in [address] Sales. She had seen gastroenterology as an outpatient yesterday on 04/14/2025. Today she had acute onset of severe right lower quadrant abdominal pain. She immediately presented to the emergency department. She arrived appearing uncomfortable and tearful with tachycardia. She underwent thorough evaluation including CT scan of the abdomen pelvis which revealed twisting of the cecum suspicious for volvulus and surgical consultation was recommended. Surgery was contacted. Imaging was reviewed. It appeared somewhat atypical for classic cecal volvulus and therefore the patient was evaluated. She did have some morphine but continued to have severe abdominal pain. Patient was taken for emergent surgery by Dr. Victor for surgical intervention from the emergency room. Laparotomy was performed with ileocecal resection with ileocolic anastomosis. Patient did tolerate surgery well. She was then admitted to the medical floor with Montanez catheter and NG tube in place for recovery. Also to note patient has a history of hypertension, hyperlipidemia, depression, endometriosis, migraines, positive rheumatoid arthritis factor on Humira, and anxiety. She has most recently been seen in the office of [facility] for severe thoracic and lumbar back pain. She was seen by gastroenterology yesterday and started on Ibsrela for constipation. Patient had not had a bowel movement in 2-1/2 weeks despite Linzess and MiraLAX. states that she did start the new medicine last evening but had not had any bowel movements. At the time of this exam patient still remains somnolent from anesthesia. does answer most of the questions. Hospital Course Hospital Course Hospital Course: On 04/15/2025 patient had a laparotomy with ileocecal resection with ileocolic anastomosis. Initially patient had IV fluids and an NG tube in place. As nausea and GI function improved she was started on clear liquids, gradually advanced to full liquids, and then a soft diet. She was initially on antibiotics and received Toradol, Dilaudid and Zofran for pain and nausea. She required some potassium supplementation. She was able to ambulate in the hallway without any difficulty. Due to ongoing pain she did have a repeat of her CT of the abdomen and pelvis which showed a small amount of stool present and no acute problems. She was started on lactulose and was given SS enemas after which she did have results. She had also previously received Dulcolax suppositories with minimal results. Liver function studies were noted to be abnormal but trending downwards. She was started on some soft foods.She was followed by physician vice president who recommended the bland diet and a premium protein daily in order to meet her nutritional needs. After having several stools patient was discharged on 04/25/2025. She was to continue with the lactulose twice daily and daily Linzess. She was to have tramadol 50 for pain. She was to follow-up with Dr. Dior and Dr. Victor.. Exam Data for Last 24 hours Vital signs and Labs for Last 24 Hours: Temp Pulse Resp BP Pulse Ox O2 Del Method O2 Flow Rate 97.7 F 93 H 16 110/67 99 Room Air 2 04/25/25 08:00 04/25/25 08:00 04/25/25 08:00 04/25/25 08:00 04/25/25 08:00 04/25/25 10:46 04/16/25 04:00 I & O for Last 24 hours: Intake & Output 04/25/25 04/26/25 04/27/25 04/28/25 11:59 11:59 11:59 11:59 Intake Total 960 / 960 240 / 240 Output Total 0 / 0 0 / 0 Balance 960 / 960 240 / 240 Weight 170 lb 1.6 oz Narrative: 04/25/2025 PE at [facility] on day of discharge Constitutional: Present no acute distress Respiratory: Present CTA bilaterally Cardiac: Present Reg Rate and Rhythm GI: Present soft, tenderness (around surgical site and in LLQ) and normal bowel sounds; Absent distention Extremities: Absent edema Skin: Present intact Neuro: Present alert, awake and oriented x 3 Results Data Completed and Pending Completed studies during hospitalization [Text1]: 04/15/2025 CT ABD/pelvis FINDINGS: Liver: Normal. No mass. Gallbladder and biliary ducts: Gallbladder is surgically removed. No calcified stones. No ductal dilation. Pancreas: Normal. No ductal dilation. Spleen: Normal. No splenomegaly. Adrenal glands: Normal. No mass. Kidneys and ureters: Normal. No hydronephrosis. Stomach and bowel: Twisting of the cecum suspicious for volvulus Appendix: No evidence of appendicitis. Intraperitoneal space: Unremarkable. No free air. No significant fluid collection. Vasculature: Unremarkable. No abdominal aortic aneurysm. Lymph nodes: Unremarkable. No enlarged lymph nodes. Urinary bladder: Unremarkable as visualized. Reproductive: Uterus is surgically absent.. Bones/joints: Unremarkable. No acute fracture. Soft tissues: Unremarkable. IMPRESSION: Twisting of the cecum suspicious for volvulus. Surgical consultation is recommended 04/23/2025 CT ABD/Pelvis FINDINGS: CT ABDOMEN AND PELVIS WITH CONTRAST: Abdomen: Trace bilateral pleural effusions are present with mild atelectasis. The gallbladder is surgically absent. There are fatty changes of the left hepatic lobe. The spleen, pancreas and adrenal glands are unremarkable. Kidneys show no mass or obstruction. There is moderate fecal impaction of the colon. Pelvis: There are surgical changes along the cecal base, with wall thickening involving the ileocolic anastomosis, probably postoperative edema. No evidence of an abscess or contrast leak is seen. There is a small to moderate amount of free fluid in the pelvic cul-de-sac. No bowel obstruction is noted. Presumed appendectomy with cecal surgery. IMPRESSION: 1. No bowel obstruction, abscess, or pneumoperitoneum. 2. Wall thickening of the ileum near the ileocolic anastomosis, likely postoperative edema. 04/23/25 05:52: WBC 3.7 L, RBC 3.60 L, Hgb 10.5 L, Hct 31.3 L, MCV 86.9, MCH 29.2, MCHC 33.5, RDW 11.9, Plt Count 302, MPV 8.9, Neut % (Auto) 54.5, Lymph % (Auto) 27.0, [place] % (Auto) 10.2 H, Eos % (Auto) 7.5, Baso % (Auto) 0.5, Neut # (Auto) 2.0, Lymph # (Auto) 1.0, [place] # (Auto) 0.4, Eos # (Auto) 0.3, Baso # (Auto) 0.0, Sodium 136, Potassium 3.6, Chloride 104, Carbon Dioxide 31 H, Anion Gap 4.6 L, BUN 5 L, Creatinine 0.70, Estimated Creat Clear 134, Estimated GFR 93, Est GFR ( Amer) 112, Glucose 81, Calcium 8.0 L, Total Bilirubin 0.5, AST 81 H, ALT 130 H, Alkaline Phosphatase 62, Total Protein 5.6 L, Albumin 2.9 L D, Globulin 2.7, Albumin/Globulin Ratio 1.1, Amylase 41, Lipase 40 DS: Diagnosis Discharge Diagnosis (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 - Volvulus (2) Rheumatoid arthritis: Status: Acute Code(s): M06.9 - Rheumatoid arthritis, unspecified (3) Hyperlipidemia: Status: Chronic Code(s): E78.5 - Hyperlipidemia, unspecified Qualifiers: Hyperlipidemia type: other hyperlipidemia Qualified Code(s): E78.49 - Other hyperlipidemia (4) Vitamin D deficiency: Status: Chronic Code(s): E55.9 - Vitamin D deficiency, unspecified (5) Hypokalemia: Status: Acute Code(s): E87.6 - Hypokalemia (6) Elevated liver enzymes: Status: Acute Code(s): R74.8 - Abnormal levels of other serum enzymes (7) RLQ abdominal pain: Status: Acute Code(s): R10.31 - Right lower quadrant pain (8) Chronic constipation: Status: Acute Code(s): K59.09 - Other constipation Meds Home Medications and Allergies Home Medications ?Medication ?Instructions ?Recorded ?Confirmed ?Type duloxetine 60 mg capsule,delayed 60 mg PO DAILY 11/13/22 04/15/25 History release adalimumab 40 mg/0.4 mL 40 mg SQ DIRECTED 02/06/23 04/15/25 History subcutaneous pen kit (Humira(CF) Pen) omeprazole 40 mg capsule,delayed 40 mg PO DAILY 11/05/23 04/15/25 History release tizanidine 2 mg tablet 2 mg PO TIDP PRN Muscle Spasm 01/09/24 04/15/25 History meloxicam 7.5 mg tablet 7.5 mg PO BID 04/15/25 04/15/25 History lactulose 10 gram/15 mL oral 40 g (60 mL) PO BID #1,800 mL 04/25/25 Rx solution linaclotide 290 mcg capsule 290 mcg PO DAILY #30 caps 04/25/25 Rx (Linzess) tramadol 50 mg tablet 50 mg PO Q6HP PRN Moderate Pain 04/25/25 Rx (4-6) #15 tabs New Prescriptions to Start Prescriptions: lactulose Narinder Dior linaclotide [Linzess] Narinder Dior tramadol Ovi,Narinder Allergies Allergy/AdvReac Type Severity Reaction Status Date / Time indomethacin Allergy Severe Anaphylaxis Verified 04/14/25 14:04 cefaclor (From CECLOR) Allergy Unknown Unknown Verified 04/14/25 14:04 allergy reaction sulfamethoxazole (From Allergy Unknown Unknown Verified 04/14/25 14:04 BACTRIM) allergy reaction trimethoprim (From BACTRIM) Allergy Unknown Unknown Verified 04/14/25 14:04 allergy reaction Discharge Plan Disposition Patient Disposition: Home, Self-Care Condition: Good Discharge Order Discharge Orders: Discharge Order (Routine); Ordered 04/25/25 Ordered By: Narinder Dior Follow up Plan Follow up with: Narinder Dior MD [Staff Physician, Medical] - 05/09/25 10:00 am Travon Victor MD [Staff Physician, General Surgery] - 05/01/25 2:00 pm Prescriptions/Medication Reconciliation: New tramadol 50 mg Tablet 50 mg PO Q6HP PRN (Reason: Moderate Pain (4-6)) Qty: 15 0RF lactulose 10 gram/15 mL Solution 40 g PO BID Qty: 1800 0RF Linzess 290 mcg capsule 290 mcg PO DAILY Qty: 30 0RF Continued tizanidine 2 mg tablet 2 mg PO TIDP PRN (Reason: Muscle Spasm) Patient Comments: TAKE ONE TABLET BY MOUTH THREE TIMES DAILY omeprazole 40 mg capsule,delayed release(DR/EC) 40 mg PO DAILY Patient Comments: TAKE ONE CAPSULE BY MOUTH EVERY MORNING 30 minutes BEFORE morning meal duloxetine 60 mg capsule,delayed release(DR/EC) 60 mg PO DAILY Patient Comments: TAKE ONE CAPSULE BY MOUTH EVERY DAY Humira(CF) Pen 40 mg/0.4 mL pen injector kit 40 mg SQ DIRECTED Patient Comments: INJECT THE CONTENTS OF 1 PEN (40 MG / 0.4 ML) SUBCUTANEOUSLY EVERY 14 DAYS Rx Instructions: INJECT EVERY 2 WEEKS meloxicam 7.5 mg tablet 7.5 mg PO BID Patient Comments: TAKE ONE TABLET BY MOUTH TWICE DAILY --TAKE WITH FOOD-- Problem Reconciliation Problems Reviewed?: Yes Patient Discharge Instructions ACTIVITY: Limited activity DIET: continue same diet Patient Instructions: High-Fiber Diet, DI for Exploratory Laparotomy, DI for Surgical Site Infection, Volvulus in Adults, DI for Volvulus Repair in Adults Print Language: Chadian Providers Primary Care Provider: Marycarmen Quiroz Admit Provider: Narinder Dior Attending Provider: Narinder Dior
== END 2025-04-25 13:43 | disposition home or self-care (01) | DRG 330 ==
LOC: ER 10:08 → 2ND 10:29 → SDC 10:39 → 2ND 14:41
PROVIDERS: Surgery; Admitting Provider Family Medicine; Emergency Provider Emergency Medicine; PCP Nurse Practitioner Family; Visit Provider Family Medicine
PROC: 0DTH0ZZ Resection of Cecum, Open Approach (ICD-10-PCS; CPT 49000; principal; 2025-04-15 12:35)
DX: K56.2 Volvulus (principal); K35.80 Unspecified acute appendicitis; K91.89 Other postprocedural complications and disorders of digestive system; K59.09 Other constipation; I10 Essential (primary) hypertension; F32.A Depression, unspecified; F41.9 Anxiety disorder, unspecified; M05.9 Rheumatoid arthritis with rheumatoid factor, unspecified; E03.9 Hypothyroidism, unspecified; K56.7 Ileus, unspecified; D17.5 Benign lipomatous neoplasm of intra-abdominal organs; G43.909 Migraine, unspecified, not intractable, without status migrainosus; E78.49 Other hyperlipidemia; E55.9 Vitamin D deficiency, unspecified; E87.6 Hypokalemia; R74.8 Abnormal levels of other serum enzymes; Y83.6 Removal of other organ (partial) (total) as the cause of abnormal reaction of the patient, or of later complication, without mention of misadventure at the time of the procedure; Z88.1 Allergy status to other antibiotic agents; Z88.2 Allergy status to sulfonamides; Z79.620 Long term (current) use of immunosuppressive biologic; Z79.899 Other long term (current) drug therapy
CPT/HCPCS: 36415; 51702; 74177; 80048; 80053; 81001; 82150; 83690; 85007; 85014; 85018; 85025; 85048; 85049; 96374; 99285; J0131; J0295; J1100; J1171; J1650; J1885; J2003; J2250; J2270; J2405; J2470; J2704; J3010; J3480; J7120; Q9963; Q9967

== ENCOUNTER 2025-05-03 14:38 | Emergency (ER) | payer OTHER, SELFPAY ==
--- OUTSIDE RECORDS SUMMARY | 2024-05-22 11:42 | XMS_ITS | Encounter Summary ---
Author Organization [facility] Address [address] [place] [address] Care Team Providers Care Cnc Service Technician Name Role Phone Sally Cordova Primary Care Provider [phone] Reason for Visit * Diagnostic Imaging (Routine) - Closed Specialty Diagnoses / Procedures Referred By Franchesca craig Referred To Contact Radiology Diagnoses Abnormal thyroid ultrasound Thyroid antibody positive Procedures US Thyroid Gosia Carpio MD [address] [place] [id number] Phone: tel: fax: Referral ID Status Reason Start Date Expiration Date Visits Re quested Visits Authorized [id number] Closed 05/22/2024 05/22/2025 1 1 Encounter Details Date Type Department Care Team (Late st Contact Info) Description 05/22/2024 10:42 AM EST Hospital Encounter [facility]OLOGY [address] [place] [address] [phone] 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 Tobacco Use Types Packs/Day Years Used Date Smoking Tobacco: Never Passive Smoke Exposure: Never Smokeless Tobacco: Never Alcohol Use Standard Drinks/Week Comments Never 0 (1 standard drink = 0.6 oz pur e alcohol) Comments Unknown Sex and Gender Information Value Date Recorded Sex Assigned at Not on file Legal Sex Female 12:45 PM EST Gender Identity Not on file Sexual Orientation Not on file documented as of this encounter Plan of Treatment Not on file documented as of this encounter Procedures Procedure Name Priority Date/Time Associated Diagnosis Comments US THYROID Routine 05/22/2024 10:42 AM EST Abnormal thyroid ultrasound Thyroid antibody positive documented in this encounter Results * US Thyroid (05/22/2024 10:42 AM EST) Narrative SYSTEMGENERATED, DOCUMENTATION - 05/22/2024 10:42 AM EST Please see performing physician's note for result. Gosia Carpio MD [facility] US ORDERABLES Final Result documented in this encounter Visit Diagnoses Not on filedocumented in this encounter Care Teams Cnc Service Technician Relationship Specialty Start Date End Date Sally Cordova PA [address] [place] [facility] [address] [facility] [address] [place] [address] PCP - General Physician Dish Room Worker 10/17/23 documented as of this encounter
--- OUTSIDE RECORDS SUMMARY | 2024-08-20 07:30 | XMS_ITS ---
Author Organization [facility] Address [address] [facility] [address] [id number] Care Team Providers Care Auto Air Conditioning Installer Name Role Phone Sally Cordova Primary Care Provider Maggy Quiroz Unavailable [phone] Allergies Allergen (clinical drug ingredient) Drug/Non Drug Allergy documented on EMR Reaction Allergy Type Onset Date Status sulfamethoxazole / trimethoprim Bactrim hives Drug Allergy Active cefaclor Cefaclor hives Drug Allergy Active indomethacin Indomethacin dizziness Drug Allergy A ctive Results Component Value Reference Range Notes Ultrasound : Breast, right Reviewed date:10/17/2024 10:13:46 AM Interpretation: Performing Lab: Notes/Report: Mammogram Reviewed date:10/17/2024 10:13:01 AM Interpretation: Performing Lab: Notes/Report: Mammogram Reviewed date:10/17/2024 10:13:01 AM Interpretation: Performing Lab: Notes/Report: REASON FOR VISIT pain/ lump in rt breast Medications Medication SIG (Take, Route, Frequency, Duration) Notes Start Date End Date Status Promethazine HCl 25 MG 1 tablet as neede d Orally every 6 hrs 01/13/2023 Active Ondansetron 4 MG 1 tablet on the tong ue and allow to dissolve Orally three times a day as needed 07/02/2023 Acti ve Bisoprolol Fumarate 5 MG 1 tablet Orally Once a day; Duration: 90 days 06/21/2024 Active Humira 40 MG/0.8ML 0.8 mL Subcutaneous q 2 weeks; Duration: 30 day(s) Activ e tiZANidine HCl 2 MG 1 tablet as needed O rally Three times a day; Duration: 30 day(s) 01/12/2023 Active Omeprazole 40 MG 1 capsule 30 minutes before morning meal Orally Once a day; Duration: 90 days Active Trulance 3 MG 1 tablet Orally Once a day; Duration: 90 days 12/28/2023 Active Meclizine HCl 25 MG 1 tablet as needed O rally three times a day as needed 12/26/2023 Acti ve hydrOXYzine HCl 25 MG 1 tab(s) orally 4 times a day, prn 01/07/2022 Active DULoxetine HCl 60 mg TAKE ONE CAPSULE BY MOUTH EVERY DAY; Duration: 30 days Active DULoxetine HCl 30 mg TAKE ONE CAPSULE BY MOUTH EVERY DAY; Duration: 30 days Active Problems Problem Type SNOMED Code ICD Code Onset Dates Problem Status W/U Status Risk Notes Problem Fibrocystic breast changes (14742563) Fibrocystic changes of right breast (N60.11) Active confirmed Encounters Encounter Location Date Provider Diagnosis [facility] [address] [facility] [address] [facility] [address] [place] [phone] 08/20/2024 Maggy Quiroz Breast pain, right N64.4 and Fibrocystic changes of right breast N60.11 Assessments Encounter Date Diagnosis (ICD Code) Assessment Notes Treatment Notes Treatment Clinical Notes Section Notes 08/20/2024 Breast pain, right (ICD-10 - N64.4) NSAIDS prn 08/20/2024 Fibrocystic changes of right breast (ICD-10 - N60.11) Plan Of Treatment Treatment Notes Assessment Notes Breast pain, right NSAIDS prn Next Appt Details Follow Up: prn, Reason: Provider Name:Narinder Ramirez ry, 05/09/2025 10:00:00 AM, [address] [facility], [address], [place], [phone], Progress Notes * TAMMY RAUSCHDOB:1985 (3 0 yo F)Acc No.[id number]:08/20/2024 Progress Notes Patient: TAMMY KRISHNAMURTHY Provider: RAJESH Roldan :1985 A ge:38 Y S ex:Female Date:08/20/2024 Address:[address] [place] [address], [facility] Pcp:Sally Cordova Subjective: * Chief Complaints: * 1 . Pain/ lump in rt breast. * HPI: G YN: 38 year old female presents with c/o breast complaints P t complains of pain in rt breast. Pt states that she noticed pain in rt breast Monday night. Pt states she thinks there is a lump on the top rt side of breast. Pt has continued with pain and states it is uncomfortable unless she is laying down and there is no pressure on breast. Pt states she had this issue 03/2022 and u/s revealed a cyst in her breast . * ROS: C ARDIOLOGY: no D izziness. n o C hest pain. G ASTROENTEROLOGY: no N ausea. n o V omiting. U ROLOGY: no D ifficulty urinating. n o B lood in urine. * Medical History: H ypertension, Hyperlipidemia, Allergic Rhinitis, Depression, Endometriosis, Migraines, RA Factor Positive 2017, Rheumatoid Arthritis, Anxiety. * Surgical History: C holecystectomy 2003, D & C 2003,2004, Filshie Clips Tubal Ligation 05/21/2012, Endometrial Ablation 12/2012, Colonoscopy 2014, Hysterectomy- Dr. Perea, [facility] 11/30/2014, Laperoscopy 11/19/2019, Colonoscopy, 1 Polyp Removed, Repeat 3 Years 02/22/2023. * Hospitalization/Major Diagno stic Procedure: M igraine, Lumbar Puncture- [facility] 04/04-10/2017, Migraine- [facility] ER 06/20/2018, Abdominal Pain, Constipation- [facility] 12/17-, Aura Migraine- [facility] ER 03/13/2020, Elevated BP- [facility] ER 07/15/2021, Abdominal Pain, Vomiting- [facility] ER 12/26/2022, Abdominal Pain, Vomiting- [facility] 12/28/2022, Abdominal Pain, Vomiting- [facility] 12/29-12/31/2022, Abdominal Pain, Vomiting- [facility] 02/05-05/2023. * Family History: F ather: alive 61 yrs, diagnosed with Hypertension. M other: alive 60 yrs, diagnosed with Hypertension. P aternal Grand Father: , diagnosed with Cancer. P aternal Grand Mother: , alzheimer's dementia. M aternal Grand Father: , diagnosed with Hypertension, Heart Disease. M aternal Grand Mother: , diagnosed with Hypertension, Heart Disease. Paternal aunt: alive. M aternal uncle: alive, diagnosed with Hypertension, Heart Disease.?Maternal aunt: alive, diagnosed with Hypertension, Heart Disease, Stroke, Cancer. S iblings: alive. C hildren: alive. 2 brother(s) , 1 sister(s) - healthy. 3 son(s) , 1 daughter(s) - healthy. . Pt's materal grandfather, grandmother, uncle and aunt passed of heart attacks, heart disease, chf by the age of 60. * 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: C URRENT TOBACCO USE: No . C affeine: yes, frequency:. Home smoke detector use: yes. Marital Status: . Alcohol: no. * Medications: T aking hydrOXYzine HCl 25 MG Tablet 1 tab(s) orally 4 times a day, prn , Taking Trulance 3 MG Tablet 1 tablet Orally Once a day , Taking Omeprazole 40 MG Capsule Delayed Release 1 capsule 30 minutes before morning meal Orally Once a day , Taking tiZANidine HCl 2 MG Tablet 1 tablet as needed Orally Three times a day , Taking Meclizine HCl 25 MG Tablet 1 tablet as needed Orally three times a day as needed , Taking Humira 40 MG/0.8ML Prefilled Syringe Kit 0.8 mL Subcutaneous q 2 weeks , Taking Bisoprolol Fumarate 5 MG Tablet 1 tablet Orally Once a day , Taking Ondansetron 4 MG Tablet Disintegrating 1 tablet on the tongue and allow to dissolve Orally three times a day as needed , Taking Promethazine HCl 25 MG Tablet 1 tablet as needed Orally every 6 hrs , Taking DULoxetine HCl 60 mg Capsule Delayed Release Particles TAKE ONE CAPSULE BY MOUTH EVERY DAY , Taking DULoxetine HCl 30 mg Capsule Delayed Release Particles TAKE ONE CAPSULE BY MOUTH EVERY DAY , Discontinued Hyoscyamine Sulfate 0.125 MG Tablet Disintegrating 1 tablet on the tongue and allow to dissolve as needed Orally every 4 hrs prn , Discontinued Montelukast Sodium 10 mg Tablet TAKE ONE TABLET BY MOUTH EVERY DAY , Discontinued Tamiflu 75 MG Capsule 1 capsule Orally once daily , Medication List reviewed and reconciled with the patient * Allergies: C efaclor: hives - Allergy, Bactrim: hives - Allergy, Indomethacin: dizziness - Side Effects. Objective: * Vitals: * Examination: G eneral Examination: General Appearance: NAD, appears healthy, alert; weight loss noted. N eurologic Exam: alert and oriented. G YN: Breasts: nipples unremarkable, no skin changes, right, fibrocystic changes; right lateral breast TTP, no lymph nodes palpable. Assessment: * Assessment: 1. B reast pain, right - N64.4 (Primary) 2 . F ibrocystic changes of right breast - N60.11 Plan: * Treatment: ?Imaging: Mammogram (Performed Date - 10/14/2024)* Maggy Quiroz 08/20/2024 9:00:32 AM > fibrocystic breasts; annualTaylRadha conner 08/20/2024 9:33:38 AM > faxed to [facility] Maggy Castillo 10/17/2024 10:12:40 AM > I spoke with pt and discussed results Notes: NSAIDS prn?? * Follow Up: p rn * Images: Billing Information: * Visit Code: 66208 Office Visit, Est Pt., Level 3. * Procedure Codes: * Electronic signature of Deisy Quiroz APRN on 05/03/2025 at 02:48 PM EDT Sign off status: Pending * Provider: RAJESH Roldan Date: 0 08/20/2024 Generated for Odin schneider/Antoni/eTgeoffsmitting on: 07/03/2024 02:48 PM EDT History and Physical Notes * HPI (History of Present Illness) Category Sub-Category Detail Notes Category Not es SEPARATOR TENDER breast complaints Pt complains o f pain in rt breast. Pt states that she noticed pain in rt breast Monday night. Pt states she thinks there is a lump on the top rt side of breast. Pt has continued with pain and states it is uncomfortable unless she is laying down and there is no pressure on breast. Pt states she had this issue 03/2022 and u/s revealed a cyst in her breast Examination Category Sub-Category Detail Notes Category Not es General Examination General Appearance: NAD, domenica ears healthy, alert; weight loss noted Neurologic Exam: alert and oriented SEPARATOR TENDER Breasts: nipples unremark able, no skin changes, right, fibrocystic changes; right lateral breast TTP, no lymph nodes palpable
--- OUTSIDE RECORDS SUMMARY | 2024-10-03 12:45 | XMS_ITS ---
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 Gr. 1.020 Ketone Neg Bili Neg Gluc Neg P-Antinuclear Antibodies (AN A) Screen Reviewed date:10/10/2024 01:29:24 PM Interpretation: Performing Lab: Notes/Report: Test performed by [facility] [address] [place] , [address], [place] [address] Ramirez Thomason MD, Nutritionist CLIA: [id number] Antinuclear Antibodies (ROSARIO) Screen Positive Negative This test is perform ed by Multiplex Bead Immunoassay methodology. P-CBC with Diff plus Absolut e Counts Reviewed date:10/10/2024 01:29:24 PM Interpretation: Performing Lab: Notes/Report: Test performed by [facility] [address] [place], [place] [address] [address], [address], [place] [address] Ramirez Thomason MD, Nutritionist CLIA: [id number] WBC 6.7 3.8-11.5 K/uL Red Blood Cell Count (RBC) 4.56 3.60-5.30 M/mm 3 Hemoglobin (Hgb) 13.5 11.5-15.5 gm/dL Hematocrit (HCT) 41.4 35.2-46.4 % MCV 90.8 79.0-99.0 fL MCH 29.6 26.9-35.0 pg MCHC 32.6 30.4-34.8 g/dL RDW 39.9 38.6-53.8 fL Platelet Count 328 137-397 K/cumm Neutrophils Automated 60.9 41.0-77.0 % Lymphocytes Automated 29.4 14.0-48.0 % Monocytes Automated 7.2 4.0-13.0 % Eosinophils Automated 1.8 0.0-8.0 % Basophils Automated 0.4 0.0-1.5 % Immature Granulocyte Automated 0.3 0.0-1.0 % Absolute Neutrophil Count 4.1 2.0-8.2 K/uL Absolute Lymphocyte Count 2.0 0.9-3.6 K/uL Absolute Monocyte Count 0.5 0.3-1.0 K/uL Absolute Eosinophil Count 0.1 0.0-0.6 K/uL Absolute Basophil Count 0.0 0.0-0.1 K/uL Absolute Immature Granulocyte 0.02 0.00-0.03 K/uL CCP Antibodies Reviewed date:10/10/2024 01:29:24 PM Interpretation: Performing Lab: Notes/Report: Test performed by [facility] [address] [place] [address] , [place] [address] Ramirez Thomason MD, Nutritionist CLIA: [id number] CCP Antibodies <0.5 <0.5-3.0 U/mL P-Comprehensive Metabolic Pa rickie (CMP) Reviewed date:10/10/2024 01:29:24 PM Interpretation: Performing Lab: Notes/Report: Test performed by [facility] [address] [place] [address] , [place] [address] Ramirez Thomason MD, Nutritionist CLIA: [id number] Sodium 140 135-145 mmol/L Potassium 4.3 3.5-5.3 mmol/L Chloride 103 97-108 mmol/L CO2 22 22-32 mmol/L Glucose 95 65-99 mg/dL BUN 11 6-20 mg/dL Creatinine 1.00 0.50-1.00 mg/dL Calcium 9.2 8.6-10.4 mg/dL eGFR by Creatinine 73 >59 mL/min/1.73m2 Protein 7.4 6.0-8.3 g/dL Albumin 4.5 3.5-5.3 g/dL Alkaline Phosphatase 71 35-121 IU/L ALT (SGPT) 18 <5-47 IU/L AST (SGOT) 22 <5-40 IU/L Bilirubin, Total 0.5 <0.2-1.2 mg/dL A/G Ratio 1.6 1.1-2.5 P-N-Rtlpdypa Protein (CRP) Reviewed date:10/10/2024 01:29:24 PM Interpretation: Performing Lab: Notes/Report: Test performed by [facility] , [address], [place] [address] Ramirez Thomason MD, Nutritionist CLIA: [id number] C-Reactive Protein (CRP) 0.05 <0.50 mg/dL P-Sed Rate (ESR) Reviewed date:10/10/2024 01:29:24 PM Interpretation: Performing Lab: Notes/Report: Test performed by [facility] [address] , [address], [place] [id number] Ramirez Thomason MD, Nutritionist CLIA: [id number] Erythrocyte Sedimentation Rate (ESR), Automated 31 <26 mm/hr P-Rheumatoid Factor Reviewed date:10/10/2024 01:29:24 PM Interpretation: Performing Lab: Notes/Report: Test performed by [facility] [address] , [address], [place] [address] Ramirez Thomason MD, Nutritionist CLIA: [id number] Rheumatoid Factor 10.0 <14.1 IU/mL P-T4 Free (thyroxine) Reviewed date:10/10/2024 01:29:24 PM Interpretation: Performing Lab: Notes/Report: Test performed by [facility] [address] , [address], [place] [id number] Ramirez Thomason MD, Nutritionist CLIA: [id number] Thyroxine Free (free T4) 1.00 0.86-1.76 ng/dL HLA-B27 Antigen Reviewed date:10/10/2024 01:29:24 PM Interpretation: Performing Lab: Notes/Report: HLA-B27 Negative Negative INTERPRETIVE INFORMATION: HLA-B27 HLA-B27 is a serologically defined allele of the human HLA-B locus. The presence of the HLA-B27 antigen is strongly associated with ankylosing spondylitis and related disorders. This test was developed and its performance characteristics determined by [facility]. It has not been cleared or approved by the US Food and Drug Administration. This test was performed in a CLIA certified laboratory and is intended for clinical purposes. Performed By: [facility] [address] [place] [id number] Nutritionist: Ramón Prakash MD, PhD CLIA Number: [id number] P-TSH Reviewed date:10/10/2024 01:29:24 PM Interpretation: Performing Lab: Notes/Report: Test performed by [facility] [address] [place] [address] , [place] [address] Ramirez Thomason MD, Nutritionist CLIA: [id number] TSH 1.84 0.43-5.25 mU/L P-Vitamin D 25-Hydroxy Reviewed date:10/10/2024 01:29:24 PM Interpretation: Performing Lab: Notes/Report: Test performed by [facility] [address] [place] [address] , [place] [address] Ramirez Thomason MD, Nutritionist CLIA: [id number] Vitamin D 25-Hydroxy 16.0 30.0-100.0 ng/mL Interpretation of Vitamin D 25 OH: < 20 ng/mL - Deficiency 20 - 29 ng/mL - Insufficiency 30 - 100 ng/mL - Sufficiency > 100 ng/mL - Super-therapeutic- toxicity may occur above this level. Clinical correlation required. TEN-Vaginal Infection panel Reviewed date:10/09/2024 05:13:16 PM Interpretation:Abnormal Performing Lab: Notes/Report: Abnormal xultrasound : thyroid Reviewed date:10/10/2024 01:29:24 PM Interpretation: Performing Lab: Notes/Report: REASON FOR VISIT not feeling good Medications Medication SIG (Take, Route, Frequency, Duration) Notes Start Date End Date Status tiZANidine HCl 2 MG 1 tablet as needed O rally Three times a day; Duration: 30 day(s) 01/12/2023 Active Meclizine HCl 25 MG 1 tablet as needed O rally three times a day as needed 12/26/2023 Active hydrOXYzine HCl 25 MG 1 tab(s) orally 4 times a day, prn 01/07/2022 Active Trulance 3 MG 1 tablet Orally Once a day; Duration: 90 days 12/28/2023 Active Vitamin D (Ergocalciferol) 1.25 MG (62939 UT) 1 capsule Orally; Duration: 30 day(s) Active Omeprazole 40 MG 1 capsule 30 minutes before morning meal Orally Once a day; Duration: 90 days Active Ondansetron 4 MG 1 tablet on the tong ue and allow to dissolve Orally three times a day as needed 07/02/2023 Active Promethazine HCl 25 MG 1 tablet as neede d Orally every 6 hrs 01/13/2023 Active DULoxetine HCl 30 mg TAKE ONE CAPSULE BY MOUTH EVERY DAY; Duration: 30 days Active DULoxetine HCl 60 mg TAKE ONE CAPSULE BY MOUTH EVERY DAY; Duration: 30 days Active Bisoprolol Fumarate 5 MG 1 tablet Orally Once a day; Duration: 90 days 06/21/2024 Active Encounters Encounter Location Date Provider Diagnosis [facility] [address] [facility] [address] [place] [phone] 10/03/2024 Sally Cordova Palpitations R00.2 ; Acute vaginitis N76.0 ; Thyroid nodule E04.1 ; Vitamin D deficiency E55.9 and Rheumatoid arthritis involving multiple sites, unspecified whether rheumatoid factor present M06.9 Assessments Encounter Date Diagnosis (ICD Code) Assessment Notes Treatment Notes Treatment Clinical Notes Section Notes 10/03/2024 Palpitations (ICD-10 - R00.2) 10/03/2024 Acute vaginitis (ICD-10 - N76.0) 10/03/2024 Thyroid nodule (ICD-10 - E04.1) 10/03/2024 Vitamin D deficiency (ICD-10 - E55.9) 10/03/2024 Rheumatoid arthritis involving multiple sites, unspecified whether rheumatoid factor present (ICD-10 - M06.9) Plan Of Treatment Pending Test Test Name Order Date P-ROSARIO 10/03/2024 Next Appt Details Follow Up: via phone to repo rt test results, Reason: Provider Name:Narinder Ramirez ry, 05/09/2025 10:00:00 AM, [address], [place], [phone], Progress Notes * CHIKA MURODOB:1985 (3 0 yo F)Acc No.[id number]:10/03/2024 Progress Notes Patient: CHIKA KRISHNAMURTHY Provider: [place] Sanchez :1985 A ge:38 Y S ex:Female Date:10/03/2024 Address:[address] [place] [address] Subjective: * Chief Complaints: * 1 . Not feeling good. * HPI: E ndocrinology: 38 year old female presents with c/o Fatigue P t complains of worsening fatigue. Pt states she is tired all the time and has a hard time making it through the day. Pt states she is sleeping well at night and is not waking up multiple times. Pt states that for about 6 days she has just not felt right. Patient feels like her head is floating and she has had a mild headache , pt has dizziness as well. Pt states she also hat she has noticed it getting harder to swallow at times and she feels like she is going to choke. C ardiology: c/o Palpitations P t complains of noticing abnormal heart beat more often than usual. Pt states it feels like her heart is pounding in her chest and feels like she cannot take a full breath. G YN: c/o vaginal discharge P t complains of vaginal discharge for about a week. Pt states discharge is white and thick. Pt states she has also had some vaginal itching and really bad cramping with lower back ache. * ROS: D ERMATOLOGY: no R tim. n o H cindy. G ASTROENTEROLOGY: no N ausea. n o V omiting. U ROLOGY: no D ifficulty urinating. n o B lood in urine. * Medical History: H ypertension, Hyperlipidemia, Allergic Rhinitis, Depression, Endometriosis, Migraines, RA Factor Positive 2017, Rheumatoid Arthritis, Anxiety. * Surgical History: C holecystectomy 2003, D & C 2003,2004, Filshie Clips Tubal Ligation 05/21/2012, Endometrial Ablation 12/2012, Colonoscopy 2014, Hysterectomy- Dr. Perea, [facility] 11/30/2014, Laperoscopy 11/19/2019, Colonoscopy, 1 Polyp Removed, Repeat 3 Years 02/22/2023. * Hospitalization/Major Diagno stic Procedure: M igraine, Lumbar Puncture- [facility] 04/04-10/2017, Migraine- [facility] ER 06/20/2018, Abdominal Pain, Constipation- [facility] 12/17-, Aura Migraine- [facility] ER 03/13/2020, Elevated BP- [facility] ER 07/15/2021, Abdominal Pain, Vomiting- [facility] ER 12/26/2022, Abdominal Pain, Vomiting- [facility] ER 12/28/2022, Abdominal Pain, Vomiting- [facility] 12/29-12/31/2022, Abdominal Pain, Vomiting- [facility], [place] 02/05-05/2023. * Family History: F ather: alive [...] . Alcohol: no. * Medications: T aking Vitamin D (Ergocalciferol) 1.25 MG (66544 UT) Capsule 1 capsule Orally , Taking hydrOXYzine HCl 25 MG Tablet 1 tab(s) orally 4 times a day, prn , Taking Trulance 3 MG Tablet 1 tablet Orally Once a day , Taking tiZANidine HCl 2 MG Tablet 1 tablet as needed Orally Three times a day , Taking Meclizine HCl 25 MG Tablet 1 tablet as needed Orally three times a day as needed , Taking Bisoprolol Fumarate 5 MG Tablet 1 tablet Orally Once a day , Taking DULoxetine HCl 60 mg Capsule Delayed Release Particles TAKE ONE CAPSULE BY MOUTH EVERY DAY , Taking DULoxetine HCl 30 mg Capsule Delayed Release Particles TAKE ONE CAPSULE BY MOUTH EVERY DAY , Taking Ondansetron 4 MG Tablet Disintegrating 1 tablet on the tongue and allow to dissolve Orally three times a day as needed , Taking Promethazine HCl 25 MG Tablet 1 tablet as needed Orally every 6 hrs , Taking Omeprazole 40 MG Capsule Delayed Release 1 capsule 30 minutes before morning meal Orally Once a day , Discontinued Humira 40 MG/0.8ML Prefilled Syringe Kit 0.8 mL Subcutaneous q 2 weeks , Medication List reviewed and reconciled with the patient * Allergies: C efaclor: hives - Allergy, Bactrim: hives - Allergy, Indomethacin: dizziness - Side Effects. Objective: * Vitals: * Examination: G eneral Examination: General Appearance: N AD. H EENT: u nremarkable.?Oral cavity: n o lesions, mucosa moist and WNL, no erythema. N noa: s upple, no lymphadenopathy. C hest: n ormal shape and expansion. H eart: R SR. L ungs: c lear to auscultation. A bdomen: bowel sounds present, soft and nontender, no organomegaly or masses, no guarding or rigidity. N eurologic Exam: I ntact, gait normal. S kin: n ormal, no rash. P eripheral pulses: n ormal (2+) bilaterally. E xtremities: n o leg edema. Assessment: * Assessment: 1. P alpitations - R00.2 (Primary) 2 . A cute vaginitis - N76.0 ?3. T hyroid nodule - E04.1 4 . V itamin D deficiency - E55.9 ? 5 . R heumatoid arthritis involving multiple sites, unspecified whether rheumatoid factor present - M06.9 Plan: * Treatment: Value Reference Range A bsolute Basophil Count 0.0 0.0-0.1 - K/uL * A bsolute Eosinophil Count 0.1 0.0-0.6 - K/uL * A bsolute Immature Granulocyte 0.02 0.00-0.03 - K/uL * A bsolute Lymphocyte Count 2.0 0.9-3.6 - K/uL * A bsolute Monocyte Count 0.5 0.3-1.0 - K/uL * A bsolute Neutrophil Count 4.1 2.0-8.2 - K/uL * B asophils Automated 0.4 0.0-1.5 - % * E osinophils Automated 1.8 0.0-8.0 - % * H ematocrit (HCT) 41.4 35.2-46.4 - % * H emoglobin (Hgb) 13.5 11.5-15.5 - gm/dL * I mmature Granulocyte Automated 0.3 0.0-1.0 - % * L ymphocytes Automated 29.4 14.0-48.0 - % * M CH 29.6 26.9-35.0 - pg * M CHC 32.6 30.4-34.8 - g/dL * M CV 90.8 79.0-99.0 - fL * M onocytes Automated 7.2 4.0-13.0 - % * P latelet Count 328 137-397 - K/cumm * R ed Blood Cell Count (RBC) 4.56 3.60-5.30 - M/ mm3 * R DW 39.9 38.6-53.8 - fL * N eutrophils Automated 60.9 41.0-77.0 - % * W BC 6.7 3.8-11.5 - K/uL * Sally Cordova 10/10/2024 1: 29:04 PM > discussed with pt ?LAB: P-Comprehensive Metabolic Panel (CMP) (Collection Date & Time - 10/03/2024 02:59 PM)* Value Reference Range A /G Ratio 1.6 1.1-2.5 - * A lbumin 4.5 3.5-5.3 - g/dL * A lkaline Phosphatase 71 35-121 - IU/L * A LT (SGPT) 18 <5-47 - IU/L * A ST (SGOT) 22 <5-40 - IU/L * B ilirubin, Total 0.5 <0.2-1.2 - mg/dL * B UN 11 6-20 - mg/dL * C alcium 9.2 8.6-10.4 - mg/dL * C hloride 103 97-108 - mmol/L * C O2 22 22-32 - mmol/L * C reatinine 1.00 0.50-1.00 - mg/dL * G lucose 95 65-99 - mg/dL * P otassium 4.3 3.5-5.3 - mmol/L * S odium 140 135-145 - mmol/L * P rotein 7.4 6.0-8.3 - g/dL * e GFR by Creatinine 73 >59 - mL/min/1.73m2 * Sally Cordova 10/10/2024 1: 29:04 PM > discussed with pt ?LAB: P-TSH (Collection Date & Time - 10/03/2024 02:59 PM)* Value Reference Range T SH 1.84 0.43-5.25 - mU/L * Sally Cordova 10/10/2024 1: 29:04 PM > discussed with pt 2.?Acute vaginitis?LAB: Urinalysis - Inhouse (Collection Date & Time - 10/03/2024)* Value Reference Range C olor/Clarity yellow/cloudy * L euk Neg * N itrite Neg * U robili 3.2 * P rotein Neg * p H 6.5 * B lood Neg * S p. Gr. 1.020 * K etone Neg * B sylvie Neg * G paramjit Neg * Chika Muro 10/03/2024 2:22:11 PM > , Provider reviewed results while patient in office. ?LAB: TEN-Vaginal Infection panel (Collection Date & Time - 10/03/2024)? Abnormal* Sally Cordova 10/09/2024 5:1 3:12 PM > see TE 3.?Thyroid nodule?LAB: P-T4 Free (thyroxine) (Collection Date & Time - 10/03/2024 02:59 PM)* Value Reference Range T hyroxine Free (free T4) 1.00 0.86-1.76 - ng/d L * Sally Cordova 10/10/2024 1: 29:04 PM > discussed with pt ?Imaging: xultrasound : thyroid (Performed Date - 10/08/2024)* Sally Cordova 10/03/2024 4:2 7:36 PM >Radha Valerio 10/04/2024 08:30:28 AM > no auth required; CPT code 63260; faxed to [facility] Scheduling Sally Cordova 10/10/2024 1:29:04 PM > discussed with pt 4.?Vitamin D deficiency?LAB: P-Vitamin D 25-Hydroxy (Collection Date & Time - 10/03/2024 02:59 PM) * Value Reference Range V itamin D 25-Hydroxy 16.0 L 30.0-100.0 - ng/mL * Sally Cordova 10/10/2024 1: 29:04 PM > discussed with pt, will start on Vit D 5.?Rheumatoid arthritis involving multiple sites, unspecified whether rheumatoid factor present?LAB: P-ROSARIO ?LAB: CCP Antibodies (Collection Date & Time - 10/03/2024 02:59 PM)* Value Reference Range C CP Antibodies <0.5 <0.5-3.0 - U/mL * Sally Cordova 10/10/2024 1: 29:04 PM > discussed with pt ?LAB: C-E-Uokiydbk Protein (CRP) (Collection Date & Time - 10/03/2024 02:59 PM)* Value Reference Range C -Reactive Protein (CRP) 0.05 <0.50 - mg/dL * Sally Cordova 10/10/2024 1: 29:04 PM > discussed with pt ?LAB: P-Sed Rate (ESR) (Collection Date & Time - 10/03/2024 02:59 PM)* Value Reference Range E rythrocyte Sedimentation Rate (ESR), Automated 31 H <26 - mm/hr * TashaSally Parham 10/10/2024 1: 29:04 PM > discussed with pt ?LAB: P-Rheumatoid Factor (Collection Date & Time - 10/03/2024 02:59 PM)* Value Reference Range R heumatoid Factor 10.0 <14.1 - IU/mL * TashaSally Parham 10/10/2024 1: 29:04 PM > discussed with pt ?LAB: HLA-B27 Antigen (Collection Date & Time - 10/03/2024 02:59 PM)* Value Reference Range H LA-B27 Negative Negative - * TashaSally Parham 10/10/2024 1: 29:04 PM > discussed with pt * Labs: * L ab: P-Antinuclear Antibodies (ROSARIO) Screen (Collection Date & Time - 10/03/2024 02:59 PM) Value Reference Range A ntinuclear Antibodies (ROSARIO) Screen Positive A Negat dario - * [facility], IT support 10/05/2024 03:55:09 : This order was created by the Interface. MalcolmjazmynSally Parham 10/10/2024 1:29:04 PM > discussed with pt * Procedure Codes: 8 1002 Urinalysis, no micro * Follow Up: v ia phone to report test results * Images: Billing Information: * Visit Code: 04931 Office Visit, Est Pt., Level 4. * Procedure Codes: 84379 Urinalysis, no micro. * Electronic signature of MATT Gutierrez on 05/03/2025 at 02:48 PM EDT Sign off status: Pending * Provider: [place] Sanchez Date: 0 10/03/2024 Generated for Printi ng/Antoni/eTransmitting on: 1 07/03/2024 02:48 PM EDT History and Physical Notes * HPI (History of Present Illness) Category Sub-Category Detail Notes Category Not es Endocrinology Fatigue Pt complains of worsening fatigue. Pt states she is tired all the time and has a hard time making it through the day. Pt states she is sleeping well at night and is not waking up multiple times. Pt states that for about 6 days she has just not felt right. Patient feels like her head is floating and she has had a mild headache , pt has dizziness as well. Pt states she also hat she has noticed it getting harder to swallow at times and she feels like she is going to choke [employer] vaginal discharge Pt complains o f vaginal discharge for about a week. Pt states discharge is white and thick. Pt states she has also had some vaginal itching and really bad cramping with lower back ache Cardiology Palpitations Pt complains of noticing abnormal heart beat more often than usual. Pt states it feels like her heart is pounding in her chest and feels like she cannot take a full breath Examination Category Sub-Category Detail Notes Category Not es General Examination HEENT: unremarkable Heart: RSR Lungs: clear to auscultatio n Abdomen: bowel sounds present , soft and nontender, no organomegaly or masses, no guarding or rigidity Extremities: no leg edema General Appearance: NAD Skin: normal, no rash Neurologic Exam: Intact, gait normal Neck: supple, no lymphaden opathy Oral cavity: no lesions, mucosa m oist and WNL, no erythema Peripheral pulses: normal (2+) bilatera lly Chest: normal shape and exp ansion
--- OUTSIDE RECORDS SUMMARY | 2024-10-25 07:30 | XMS_ITS ---
Author Organization [facility] Address [address] [facility] 36 [facility] [address] [place] [phone] Care Team Providers Care Administrator Health Care Facility Name Role Phone Sally Cordova Primary Care Provider Allergies Allergen (clinical drug ingredient) Drug/Non Drug Allergy documented on EMR Reaction Allergy Type Onset Date Status sulfamethoxazole / trimethoprim Bactrim hives Drug Allergy Active cefaclor Cefaclor hives Drug Allergy Active indomethacin Indomethacin dizziness Drug Allergy A ctive Results Component Value Reference Range Notes Urinalysis - Inhouse Reviewed date:10/25/2024 04:50:35 PM Interpretation: Performing Lab: Notes/Report: Color/Clarity yellow/clear Leuk Neg Nitrite Neg Urobili 3.2 Protein Neg pH 5.0 Blood Neg Sp. Gr. 1.020 Ketone Neg Bili Neg Gluc Neg V-S-Ovauhlkv Protein (CRP), High Sensitivity Reviewed date:11/01/2024 11:56:22 AM Interpretation:Normal Performing Lab: Notes/Report: Test performed by [facility] [address] [place] [address] , [address], [place] [address] Ramirez Thomason MD, Radio Frequency Technician CLIA: [id number] C-Reactive Protein (CRP), High Sensitivity 0.30 <3.01 mg/L For non-specific CRP usage, refer to reference range above. For CRP cardiac risk assessment, refer to chart and test recommendation below. CARDIOVASCULAR RISK ASSESSMENT RISK LEVEL CRP(mg/L) CRP(mg/dL) Low <1.0 <0.10 Average 1.0-3.0 0.10-0.30 High >3.0 >0.30 CRP is a non-specific marker of inflammation and a variety of conditions including atherosclerosis may cause elevated concentrations. If the first result is greater than 3.0 mg/L, repeat testing is recommended at least 2 weeks later when patient is in a metabolically stable state, free of infection or acute illness. The lower of the two results should be used to determine patient risk. P-Sed Rate (ESR) Reviewed date:11/01/2024 11:56:22 AM Interpretation:Normal Performing Lab: Notes/Report: Test performed by [facility] [address] , [place] [address] Ramirez Thomason MD, Radio Frequency Technician CLIA: [id number] Erythrocyte Sedimentation Rate (ESR), Automated 5 <26 mm/hr P-T4 Free (thyroxine) Reviewed date:11/01/2024 11:56:22 AM Interpretation:Normal Performing Lab: Notes/Report: Test performed by [facility] [address] , [facility] [place] [address] Ramirez Thomason MD, Radio Frequency Technician CLIA: [id number] Thyroxine Free (free T4) 1.09 0.86-1.76 ng/dL P-Thyroid Antibody Panel (TA BS) Reviewed date:11/01/2024 11:56:22 AM Interpretation:Thyroglobulin antibody 234.0 Performing Lab: Notes/Report: Test performed by [facility] [address] , [place] [address] Ramirez Thomason MD, Radio Frequency Technician CLIA: [id number] Thyroid Peroxidase Antibody 13 <9-34 IU/mL An elevated Thyroid Peroxidase Antibody should not be used alone to make the diagnosis of autoimmune thyroid disease. A result of <34 IU/mL does not definitively rule out the possibility of autoimmune thyroid disease. Thyroglobulin Antibody 234.0 <10-115.0 IU/mL The test is performed by the Rajni ECLIA methodology. Values obtained with different assay methods or kits cannot be directly compared. P-TSH Reviewed date:11/01/2024 11:56:22 AM Interpretation:Normal Performing Lab: Notes/Report: Test performed by [facility] [address] , [place] [address] Ramirez Thomason MD, Radio Frequency Technician CLIA: [id number] TSH 1.94 0.43-5.25 mU/L TEN-Vaginal Infection panel Reviewed date:11/01/2024 11:56:22 AM Interpretation:Abnormal Performing Lab: Notes/Report: Abnormal REASON FOR VISIT Personal Medications Medication SIG (Take, Route, Frequency, Duration) Notes Start Date End Date Status Omeprazole 40 MG 1 capsule 30 minutes before morning meal Orally Once a day; Duration: 90 days Active Vitamin D (Ergocalciferol) 1.25 MG (49631 UT) 1 capsule Orally once a week; Duration: 30 days Active Meclizine HCl 25 mg TAKE ONE TABLET BY M OUTH THREE TIMES DAILY NEEDED; Duration: 7 Active Montelukast Sodium 10 mg 1 tablet Orally Once a day; Duration: 90 days Active Ondansetron 4 MG 1 tablet on the tong ue and allow to dissolve Orally three times a day as needed 07/02/2023 Active Promethazine HCl 25 MG 1 tablet as neede d Orally every 6 hrs 01/13/2023 Active Bisoprolol Fumarate 5 MG 1 tablet Orally Once a day; Duration: 90 days 06/21/2024 Active DULoxetine HCl 60 mg TAKE ONE CAPSULE BY MOUTH EVERY DAY; Duration: 30 days Active hydrOXYzine HCl 25 MG 1 tab(s) orally 4 times a day, prn 01/07/2022 Active Trulance 3 MG 1 tablet Orally Once a day; Duration: 90 days 12/28/2023 Active tiZANidine HCl 2 MG 1 tablet as needed O rally Three times a day; Duration: 30 day(s) 01/12/2023 Active Vital Signs Weight 190 lbs 10/25/2024 Heart Rate 88 /min 10/25/2024 Height 67 in 10/25/2024 BMI 29.75 kg/m2 10/25/2024 Encounters Encounter Location Date Provider Diagnosis [facility] [address] [facility] [address] [place], [place] [phone] 10/25/2024 Sally Tasha Thyroid nodule E04.1 ; Acute vaginitis N76.0 ; Rheumatoid arthritis involving multiple sites, unspecified whether rheumatoid factor present M06.9 and BMI 29.0-29.9,adult Z68.29 Assessments Encounter Date Diagnosis (ICD Code) Assessment Notes Treatment Notes Treatment Clinical Notes Section Notes 10/25/2024 Thyroid nodule (ICD-10 - E04.1) 10/25/2024 Acute vaginitis (ICD-10 - N76.0) 10/25/2024 Rheumatoid arthritis involving multiple sites, unspecified whether rheumatoid factor present (ICD-10 - M06.9) 10/25/2024 BMI 29.0-29.9,adult (ICD-10 - Z68.29) Plan Of Treatment Next Appt Details Follow Up: via phone to repo rt test results, Reason: Provider Name:Narinder Ramirez ry, 05/09/2025 10:00:00 AM, [address] [facility] [address], [address], [place], [place], [phone], Progress Notes * MIRACLEANALUIS DANIELDOB:1985 (3 0 yo F)Acc No.[id number]:10/25/2024 Progress Notes Patient: CHIKA KRISHNAMURTHY Provider: [place] Sanchez :1985 A ge:38 Y S ex:Female Date:10/25/2024 Address:[address] [place] [address] Subjective: * Chief Complaints: * 1 . Personal. * HPI: U rology: 38 year old female presents with c/o burning sensation P t complains of burning with and before urination for 2 days. Pt has completed abx from 10/09 and states sx's did improve for a couple days. Pt also complains of bilateral flank pain, lower back ache and cramping . * ROS: R ESPIRATORY: no C hest congestion. n o C ough. D ERMATOLOGY: no R tim. n o H cindy. G ASTROENTEROLOGY: no D iarrhea. n o B lood in stool. * Medical History: H ypertension, Hyperlipidemia, Allergic Rhinitis, Depression, Endometriosis, Migraines, RA Factor Positive 2017, Rheumatoid Arthritis, Anxiety. * Surgical History: C holecystectomy 2003, D & C 2003,2004, Filshie Clips Tubal Ligation 05/21/2012, Endometrial Ablation 12/2012, Colonoscopy 2014, Hysterectomy- Dr. Perea, [facility] 11/30/2014, Laperoscopy 11/19/2019, Colonoscopy, 1 Polyp Removed, Repeat 3 Years 02/22/2023, Thyroid Nodule Biopsy 10/22/2024. * Hospitalization/Major Diagno stic Procedure: M igraine, Lumbar Puncture- [facility] 04/04-10/2017, Migraine- [facility] ER 06/20/2018, Abdominal Pain, Constipation- [facility] 12/17-, Aura Migraine- [facility] ER 03/13/2020, Elevated BP- [facility] ER 07/15/2021, Abdominal Pain, Vomiting- [facility] ER 12/26/2022, Abdominal Pain, Vomiting- [facility] ER 12/28/2022, Abdominal Pain, Vomiting- [facility] 12/29-12/31/2022, Abdominal Pain, Vomiting- [facility] 02/05-05/2023. * Family History: F ather: [...] TOBACCO USE: No . C affeine: yes, frequency: Daily. Home smoke detector use: yes. Marital Status: . Alcohol: no. * Medications: T aking hydrOXYzine HCl 25 MG Tablet 1 tab(s) orally 4 times a day, prn , Taking Trulance 3 MG Tablet 1 tablet Orally Once a day , Taking tiZANidine HCl 2 MG Tablet 1 tablet as needed Orally Three times a day , Taking Bisoprolol Fumarate 5 MG Tablet [...] meal Orally Once a day , Taking Vitamin D (Ergocalciferol) 1.25 MG (42336 UT) Capsule 1 capsule Orally once a week , Taking Meclizine HCl 25 mg Tablet TAKE ONE TABLET BY MOUTH THREE TIMES DAILY NEEDED , Taking Montelukast Sodium 10 mg Tablet 1 tablet Orally Once a day , Discontinued DULoxetine HCl 30 mg Capsule Delayed Release Particles TAKE ONE CAPSULE BY MOUTH EVERY DAY , Discontinued Amoxicillin 500 MG Capsule 1 capsule Orally every 8 hrs , Medication List reviewed and reconciled with the patient * Allergies: C efaclor: hives - Allergy, Bactrim: hives - Allergy, Indomethacin: dizziness - Side Effects. Objective: * Vitals: W t:190, Temp:98.0, BP:000, HR:88, Nurse:, Ht: 67, BMI:29.75. * Examination: G eneral Examination: General Appearance: N AD. H EENT: u nremarkable.?Oral cavity: n o lesions, mucosa moist and WNL, no erythema. N noa: s upple, no lymphadenopathy. C hest: n ormal shape and expansion. H eart: R SR. L ungs: c lear to auscultation. A bdomen: bowel sounds present, soft, ttp in the suprapubic area. N eurologic Exam: I ntact, gait normal. S kin: n ormal, no rash. P eripheral pulses:?normal (2+) bilaterally. E xtremities: n o leg edema. Assessment: * Assessment: 1. T hyroid nodule - E04.1 (Primary) 2 . A cute vaginitis - N76.0 ? 3 . R heumatoid arthritis involving multiple sites, unspecified whether rheumatoid factor present - M06.9 4 . B SC 29.0-29.9,adult - Z68.29 Plan: * Treatment: Value Reference Range T hyroxine Free (free T4) 1.09 0.86-1.76 - ng/d L * Cortney Newell 11/01/2024 11:5 5:54 AM > See phone encounter ?LAB: P-Thyroid Antibody Panel (TABS) (Collection Date & Time - 10/25/2024 12:07 PM)?Thyroglobulin antibody 234.0* Value Reference Range T hyroid Peroxidase Antibody 13 <9-34 - IU/mL * T hyroglobulin Antibody 234.0 H <10-115.0 - IU/mL * Cortney Newell 11/01/2024 11:5 5:54 AM > See phone encounter ?LAB: P-TSH (Collection Date & Time - 10/25/2024 12:07 PM)?Normal* Value Reference Range T SH 1.94 0.43-5.25 - mU/L * Cortney Newell 11/01/2024 11:5 5:54 AM > See phone encounter 2.?Acute vaginitis?LAB: Urinalysis - Inhouse (Collection Date & Time - 10/25/2024)* Value Reference Range C olor/Clarity yellow/clear * L euk Neg * N itrite Neg * U robili 3.2 * P rotein Neg * p H 5.0 * B lood Neg * S p. Gr. 1.020 * K etone Neg * B sylvie Neg * G paramjit Neg * Chika Muro 10/25/2024 9:21:58 AM > , Provider reviewed results while patient in office. ?LAB: TEN-Vaginal Infection panel (Collection Date & Time - 10/25/2024)? Abnormal* Cortney Newell 11/01/2024 11:5 5:54 AM > See phone encounter 3.?Rheumatoid arthritis involving multiple sites, unspecified whether rheumatoid factor present?LAB: H-G-Ghv[place] Protein (CRP), High Sensitivity (Collection Date & Time - 10/25/2024 12:07 PM)?Normal* Value Reference Range C -Reactive Protein (CRP), High Sensitivity 0.30 <3.01 - mg/L * Cortney Newell 11/01/2024 11:5 5:54 AM > See phone encounter ?LAB: P-Sed Rate (ESR) (Collection Date & Time - 10/25/2024 12:07 PM)?Normal * Value Reference Range E rythrocyte Sedimentation Rate (ESR), Automated 5 <26 - mm/hr * Cortney Newell 11/01/2024 11:5 5:54 AM > See phone encounter * Procedure Codes: 8 1002 Urinalysis, no micro * Follow Up: v ia phone to report test results * Images: Billing Information: * Visit Code: 06395 Office Visit, Est Pt., Level 4. * Procedure Codes: 48953 Urinalysis, no micro. * Electronic signature of MATT Gutierrez on 05/03/2025 at 02:49 PM EDT Sign off status: Pending * Provider: [place] Sanchez Date: 0 10/25/2024 Generated for Printi ng/Faxing/eTransmitting on: 1 07/03/2024 02:49 PM EDT History and Physical Notes * HPI (History of Present Illness) Category Sub-Category Detail Notes Category Not es Urology burning sensation Pt complains o f burning with and before urination for 2 days. Pt has completed abx from 10/09 and states sx's did improve for a couple days. Pt also complains of bilateral flank pain, lower back ache and cramping Examination Category Sub-Category Detail Notes Category Not es General Examination HEENT: unremarkable Heart: RSR Lungs: clear to auscultatio n Abdomen: bowel sounds present , soft, ttp in the suprapubic area Extremities: no leg edema General Appearance: NAD Skin: normal, no rash Neurologic Exam: Intact, gait normal Neck: supple, no lymphaden opathy Oral cavity: no lesions, mucosa m oist and WNL, no erythema Peripheral pulses: normal (2+) bilatera lly Chest: normal shape and exp ansion
--- OUTSIDE RECORDS SUMMARY | 2024-12-26 12:45 | XMS_ITS ---
Author Organization [facility] Address [address] [facility] [address] [place], [place] [id number] Care Team Providers Care Welder Production Line Combination Name Role Phone Sally Cordova Primary Care [...] Interpretation:Normal Performing Lab: Notes/Report: Test performed by [facility] [address] [address] , [address], [place] [address] Ramirez Thomason MD, Filler Shaker CLIA: [id number] B burgdorferi (Lyme Disease) IgG Negative Negative B burgdorferi (Lyme Disease) IgM Negative Negative P-Comprehensive Metabolic Pa rickie (CMP) Reviewed date:12/31/2024 08:23:56 AM Interpretation:Normal Performing Lab: Notes/Report: Test performed by [facility] [address] [place] [address] , [address], [place] [address] Ramirez Thomason MD, Filler Shaker CLIA: [id number] Sodium 138 135-145 mmol/L Potassium 4.0 3.5-5.3 [...] 0.7 <0.2-1.2 mg/dL A/G Ratio 1.5 1.1-2.5 M-Y-Lzmnbbky Protein (CRP), High Sensitivity Reviewed date:12/31/2024 08:23:56 AM Interpretation:Normal Performing Lab: Notes/Report: Test performed by [facility] [address] [place] [address] , [address], [place] [id number] Ramirez Thomason MD, Filler Shaker CLIA: [id number] C-Reactive Protein (CRP), High Sensitivity 0.70 <3.01 [...] Interpretation:Normal Performing Lab: Notes/Report: Test performed by [facility], [address] , [address], [place] [address] Ramirez Thomason MD, Filler Shaker CLIA: [id number] AND Test performed by [facility] [address] [place] [id number] Celia Lemus MD, Filler Shaker B. burgdorferi Antibody IgG Immunoblot Negative Negative [...] developed and its performance characteristics determined by [facility]. It has not been cleared or approved by the US Food and Drug Administration. This test was performed in a CLIA certified laboratory and is intended for clinical purposes. Performed By: [facility] [address] [place], [place] [id number] Filler Shaker: Ramón Prakash MD, PhD CLIA Number: [id number] A. phagocytophilum Ab IgG <1:80 <1:80 INTERPRETIVE INFORMATION: A. phagocytophilum (HGA) Antibody, IgG Less than 1:80 - No significant level of IgG antibodies to A. phagocytophilum detected. Greater than or equal to 1:80 - Suggestive of a recent or past infection with A. phagocytophilum. This test was developed and its performance characteristics determined by [facility]. It has not been cleared or approved by the US Food and Drug Administration. This test was performed in a CLIA certified laboratory and is intended for clinical purposes. P-Sed Rate (ESR) Reviewed date:12/31/2024 08:23:56 AM Interpretation:Normal Performing Lab: Notes/Report: Test performed by [facility] [address] [place] [address] [place] [address] Ramirez Thomason MD, Filler Shaker CLIA: [id number] Erythrocyte Sedimentation Rate (ESR), Automated 9 <26 mm/hr P-T4 Free (thyroxine) Reviewed date:12/31/2024 08:23:56 AM Interpretation:Normal Performing Lab: Notes/Report: Test performed by [facility] [address] [place] [address] [place] [address] Ramirez Thomason MD, Filler Shaker CLIA: [id number] Thyroxine Free (free T4) 1.12 0.86-1.76 ng/dL P-TSH Reviewed date:12/31/2024 08:23:56 AM Interpretation:Normal Performing Lab: Notes/Report: Test performed by [facility] [address] [place] [address] [place] [address] Ramirez Thomason MD, Filler Shaker CLIA: [id number] TSH 1.53 0.43-5.25 mU/L P-Vitamin D 25-Hydroxy Reviewed date:12/31/2024 08:23:56 AM Interpretation:25.4 Performing Lab: Notes/Report: Test performed by [facility] [address] [place] [address] [place] [address] Ramirez Thomason MD, Filler Shaker CLIA: [id number] Vitamin D 25-Hydroxy 25.4 30.0-100.0 ng/mL Interpretation [...] days Active Vitamin D (Ergocalciferol) 1.25 MG (59020 UT) 1 capsule Orally once a week; Duration: 30 days Active Trulance 3 MG 1 tablet Orally Once a day; Duration: 90 days 12/28/2023 Active Vital Signs Weight 188 lbs 12/26/2024 Height 67 in 12/26/2024 BMI 29.44 kg/m2 12/26/2024 Encounters Encounter Location Date Provider Diagnosis [facility] [address] [facility] [address] [place], [place] [phone] 12/26/2024 Sally Cordova Rheumatoid arthritis involving multiple [...] Ramirez ry, 05/09/2025 10:00:00 AM, [address] [facility] [address], [address], [place], [place], [id number], Progress Notes * MIRACLE CHIKADOB:1985 ([age] yo F)Acc No.[id number]:12/26/2024 Progress Notes Patient: CHIKA KRISHNAMURTHY Provider: M[place] Sanchez :1985 A ge:39 Y S ex:Female Date:12/26/2024 Address:[address] [place] [address] Subjective: * Chief Complaints: * 1 . [...] Ablation 12/2012, Colonoscopy 2014, Hysterectomy- Dr. Perea, [facility] 11/30/2014, Laperoscopy 11/19/2019, Colonoscopy, 1 Polyp Removed, Repeat 3 Years 02/22/2023, Thyroid Nodule Biopsy 10/22/2024. * Hospitalization/Major Diagno stic Procedure: M igraine, Lumbar Puncture- [facility] 04/04-10/2017, Migraine- [facility] 06/20/2018, Abdominal Pain, Constipation- [facility] 12/17-, Aura Migraine- [facility] 03/13/2020, Elevated BP- [facility] 07/15/2021, Abdominal Pain, Vomiting- [facility] 12/26/2022, Abdominal Pain, Vomiting- [facility] 12/28/2022, Abdominal Pain, Vomiting- [facility] 12/29-12/31/2022, Abdominal Pain, Vomiting- [facility] 02/05-05/2023. * Family History: F ather: alive [...] Stroke, Heart Disease. S iblings: alive. C hildren: alive. 2 [...] , Taking Vitamin D (Ergocalciferol) 1.25 MG (07164 UT) Capsule 1 capsule Orally once a [...] leg edema. Assessment: * Assessment: 1. R heumatoid arthritis involving multiple sites, unspecified [...] High Sensitivity 0.70 <3.01 - mg/L * Tasha Sally Parham 12/30/2024 1 1:24:52 PM EDT >sent to [facility] 12/31/2024 08:23:44 AM EDT > Noted ?LAB: P-Sed Rate (ESR) (Collection Date & Time - 12/26/2024 12:03 PM)?Normal * Value Reference Range E rythrocyte Sedimentation Rate (ESR), Automated 9 <26 - mm/hr * Sally Cordova 12/30/2024 1 1:24:52 PM EDT >sent to [facility] 12/31/2024 08:23:44 AM EDT > Noted 2.?Thyroid nodule?LAB: P-T4 Free (thyroxine) (Collection Date & Time - 12/26/2024 12:03 PM)? Normal* Value Reference Range T hyroxine Free (free T4) 1.12 0.86-1.76 - ng/d L * Sally Cordova 12/30/2024 1 1:24:52 PM EDT >sent to [facility] 12/31/2024 08:23:44 AM EDT > Noted ?LAB: P-TSH (Collection Date & Time - 12/26/2024 12:03 PM)?Normal* Value Reference Range T SH 1.53 0.43-5.25 - mU/L * Sally Cordova 12/30/2024 1 1:24:52 PM EDT >sent to [facility] 12/31/2024 08:23:44 AM EDT > Noted 3.?Fatigue, unspecified type?LAB: P-Lyme Disease (B. burgodorferi), IgG/IgM, BIN, Serum (Collection Date & Time - 12/26/2024 12:03 PM)?Normal* Value Reference Range B burgdorferi (Lyme Disease) IgG Negative Negative - * B burgdorferi (Lyme Disease) IgM Negative Negative - * MalcolmShmuel eldrigdeselina Parham 12/30/2024 1 1:24:52 PM EDT >sent to [facility] 12/31/2024 08:23:44 AM EDT > Noted ?LAB: P-T4 Free (thyroxine) (Collection Date & Time - 12/26/2024 12:03 PM)? Normal* Value Reference Range T hyroxine Free (free T4) 1.12 0.86-1.76 - ng/d L * Tasha Sally S 12/30/2024 1 1:24:52 PM EDT >sent to [facility] 12/31/2024 08:23:44 AM EDT > Noted ?LAB: P-TSH (Collection Date & Time - 12/26/2024 12:03 PM)?Normal* Value Reference Range T SH 1.53 0.43-5.25 - mU/L * MalcolmjazmynSally Dione 12/30/2024 1 1:24:52 PM EDT >sent to [facility] 12/31/2024 08:23:44 AM EDT > Noted ?LAB: Influenza Screen (in house) (Collection Date & Time - 12/26/2024)* Value Reference Range r esults Neg * [facility] 12/26/2024 11:12: 44 AM EDT > [...] Value Reference Range r esults Neg * Chika Muro 12/26/2024 11:12: 44 AM EDT > Provider [...] B M Interpretation See Below - * [facility], support 12/30/2024 05:45:07 : This order was created by the Interface. Sally Cordova [employer] 12/30/2024 11:24:52 PM EDT >sent to [facility] 12/31/2024 08:23:44 AM EDT > Noted * Procedure Codes: 8 5025 CBC WITH AUTO DIFF, 56349 VENIPUNCT, ROUTINE*, 53274 Flu Test- Nasal Swab, Modifiers: QW , 84673 COVID TEST IN HOUSE, Modifiers: QW * Follow Up: v ia phone to report test results * Images: Billing Information: * Visit Code: 77471 Office Visit, Est Pt., Level 4. * Procedure Codes: 17679 CBC WITH AUTO DIFF. 02459 VENIPUNCT, ROUTINE*. 88752 Flu Test- Nasal Swab. Modifiers: QW 05013 COVID TEST IN HOUSE. Modifiers: QW * Electronic signature of MATT Gutierrez on 05/03/2025 at 02:49 PM EDT Sign off status: Pending * Provider: MATT Sanchez Date: 0 12/26/2024 Generated for Odin schneider/Antoni/eTransmitting on: 1 07/03/2024 02:49 PM EDT History [...]
--- OUTSIDE RECORDS SUMMARY | 2025-02-07 11:30 | XMS_ITS ---
Author Organization [facility] Address 12[address] [facility] [address] [phone] Care Team Providers Care Commercial Lines Underwriter Name Role Phone Sally Cordova Primary Care Provider [phone] Allergies Allergen (clinical drug ingredient) Drug/Non Drug [...] days Active Vitamin D (Ergocalciferol) 1.25 MG (49481 UT) 1 capsule Orally once a week; [...] Active Encounters Encounter Location Date Provider Diagnosis [facility] [address] [place] [phone] 02/07/2025 Sally Cordova Plan Of Treatment Next Appt Details Provider Name:Narinder Caldwell James ry, 05/09/2025 10:00:00 AM, [address], [place], [place], [phone], Progress Notes * ANA RAUSCHLUIS DANIELDOB:1985 ([age] yo F)Acc No.[id number]:02/07/2025 Progress Notes Patient: TAMMY KRISHNAMURTHY Provider: [place] Sanchez :1985 A ge:39 Y S ex:Female Date:02/07/2025 Address:[address] [place] [address] Subjective: * Chief Complaints: * 1 . [...] Ablation 12/2012, Colonoscopy 2014, Hysterectomy- Dr. Perea, [facility] 11/30/2014, Laperoscopy 11/19/2019, Colonoscopy, 1 Polyp Removed, Repeat 3 Years 02/22/2023, Thyroid Nodule Biopsy 10/22/2024. * Hospitalization/Major Diagno stic Procedure: Robel montenegro, Lumbar Puncture- [facility] 04/04-10/2017, Migraine- [facility] 06/20/2018, Abdominal Pain, Constipation- [facility] 12/17-, Aura Migraine- [facility] 03/13/2020, Elevated BP- [facility] 07/15/2021, Abdominal Pain, Vomiting- [facility] 12/26/2022, Abdominal Pain, Vomiting- [facility] 12/28/2022, Abdominal Pain, Vomiting- [facility] 12/29-12/31/2022, Abdominal Pain, [facility]- [facility] [...] , Taking Vitamin D (Ergocalciferol) 1.25 MG (68343 UT) Capsule 1 capsule Orally once a [...] 0 02/07/2025 Generated for Odin schneider/Antoni/Stacia on: 07/03/2024 02:49 PM EDT History and Physical [...]
--- OUTSIDE RECORDS SUMMARY | 2025-02-17 07:15 | XMS_ITS ---
Author Organization [facility] Address 1210 [facility] [address] [id number] Care Team Providers Care 911 Telecommunicator Name Role Phone Sally Cordova Primary Care Provider [phone] Maggy Quiroz Unavailable [phone] Allergies Allergen (clinical drug ingredient) Drug/Non Drug Allergy documented on EMR Reaction Allergy Type Onset Date Status sulfamethoxazole / trimethoprim Bactrim hives Drug Allergy Active cefaclor Cefaclor hives Drug Allergy Active indomethacin Indomethacin dizziness Drug Allergy A ctive Results Component Value Reference Range Notes Urinalysis - Inhouse Reviewed date:02/17/2025 03:52:29 PM Interpretation: Performing Lab: Notes/Report: Color/Clarity dark yellow/clear Leuk neg Nitrite neg Urobili 16 Protein trace pH 7.0 Blood neg Sp. Gr. 1.020 Ketone trace Bili neg Gluc neg CBC Fingerstick (in house) Reviewed date:02/17/2025 03:52:15 PM Interpretation: Performing Lab: Notes/Report: wbc 4.4 3.5 - 10 lym 29.4 15 - 50 mid 7.2 2 - 15 gran 63.4 35 - 80 rbc 4.97 3.5 - 5.5 hgb 14.3 11.5 - 16.5 hct 43.1 35 - 55 mcv 86.7 75 - 100 mch 28.7 25 - 35 mchc 33.1 31 - 38 plat 236 100 - 400 X ray : Abdomen Series Reviewed date:02/18/2025 02:32:08 PM Interpretation: Performing Lab: Notes/Report: REASON FOR VISIT lower abdominal pain Medications Medication SIG (Take, Route, Frequency, Duration) Notes Start Date End Date Status Montelukast Sodium 10 mg 1 tablet Orally [...] EVERY 2 WEEKS; Duration: 28 Acti ve DULoxetine HCl 60 mg TAKE ONE CAPSULE BY MOUTH EVERY DAY; Duration: 30 days Active Omeprazole 40 MG 1 capsule 30 minutes before morning meal Orally Once a day; Duration: 90 days Active Vitamin D (Ergocalciferol) 1.25 MG (08944 UT) 1 capsule Orally once a week; Duration: 30 days Active Meclizine HCl 25 mg TAKE ONE TABLET BY M OUTH THREE TIMES DAILY NEEDED; Duration: 7 Active Bisoprolol Fumarate 5 MG 1 tablet Orally Once a day; Duration: 90 days 06/21/2024 Active Trulance 3 MG 1 tablet Orally Once a day; Duration: 90 days 12/28/2023 Active tiZANidine HCl 2 MG 1 tablet as needed O rally Three times a day; Duration: 30 day(s) 01/12/2023 Active Problems Problem Type SNOMED Code ICD Code Onset Dates Problem Status W/U Status Risk Notes Problem Acute constipation (894660267) Acute constipation (K59.00) Active confirmed Vital Signs Weight 179 lbs 02/17/2025 Blood pressure systolic 130 mm Hg 02/18/20 25 Blood pressure diastolic 76 mm Hg 025 Heart Rate 104 /min 02/17/2025 Height 67 in 02/17/2025 BMI 28.03 kg/m2 02/17/2025 Encounters Encounter Location Date Provider Diagnosis [facility] [address] [place], [place] [id number] 02/17/2025 Maggy Quiroz Abdominal pain R10.9 and Acute constipation K59.00 Assessments Encounter Date Diagnosis (ICD Code) Assessment Notes Treatment Notes Treatment Clinical Notes Section Notes 02/17/2025 Abdominal pain (ICD-10 - R10.9) 02/17/2025 Acute constipation (ICD-10 - K59.00) KUB shows moderate stool burben; will start Miralax and MG citrated when home Plan Of Treatment Treatment Notes Assessment Notes Acute constipation KUB shows moderate s tool burben; will start Miralax and MG citrated when home Next Appt Details Follow Up: prn, Reason: Provider Name:Narinderhank Ramirez ry, 05/09/2025 10:00:00 AM, [address] [facility] [address] , [place], [place], [id number], Progress Notes * TAMMY RAUSCHDOB:1985 (3 0 yo F)Acc No.[id number]:02/17/2025 Progress Notes Patient: TAMMY KRISHNAMURTHY Provider: RAJESH Roldan :1985 A ge:39 Y S ex:Female Date:02/17/2025 Address:[address] [place] [address] Pcp:Sally Cordova Subjective: * Chief Complaints: * 1 . Lower abdominal pain. * HPI: G astroenterology: had some stool yresterday; no prior stool for 2 weeks; takes Trulance QOD. 39 year old female presents with c/o Abdominal Pain P t complains of lower abdominal pain that started yesterday. Pt states pain is worse on rt side and it radiates to her rt lower back. Pt states has a lot of discomfort when sitting down but standing is worse or being pressed on. Pt states she does have some nausea as well. c/o Nausea. c/o constipation. Denies : Vomiting. D enies : Diarrhea. D enies : Fever.?Denies : Belching. D enies : gas. * ROS: C ARDIOLOGY: no D izziness. n o C hest pain. D ERMATOLOGY: no R tim. n o H cindy. U ROLOGY: no D ifficulty urinating. n o B lood in urine. * Medical History: H ypertension, Hyperlipidemia, Allergic Rhinitis, Depression, Endometriosis, Migraines, RA Factor Positive 2017, Rheumatoid Arthritis, Anxiety. * Surgical History: C holecystectomy 2003, D & C 2003,2005, [place]ie Clips Tubal Ligation 05/21/2012, Endometrial Ablation 12/2012, Colonoscopy 2014, Hysterectomy- Dr. Perea, [facility] 11/30/2014, Laperoscopy 11/19/2019, Colonoscopy, 1 Polyp [...] [facility] 12/29-12/31/2022, Abdominal Pain, Vomiting- [facility] 02/05-05/2023. * Family History: F ather: [...] , Taking Vitamin D (Ergocalciferol) 1.25 MG (89800 UT) Capsule 1 capsule Orally once a [...] MG SUBCUTANEOUSLY EVERY 2 WEEKS , Discontinued Augmentin 875-125 MG Tablet 1 tablet Orally every 12 hrs , Medication List reviewed and reconciled with the patient * Allergies: C efaclor: hives - Allergy, Bactrim: hives - Allergy, Indomethacin: dizziness - Side Effects. Objective: * Vitals: W t: 179, Temp: 98.1, BP: 130/76, HR: 104, Nurse: pe, Ht: 67, BMI:28.03. * Examination: G eneral Examination: General Appearance: N AD, alert, well nourished and hydrated; appears uncomfortable. H eart: R RR 110/min. L ungs: C TAB A&P. A bdomen:?diffusely tender > in all lower Quads, bowel sounds present, , soft; some guarding. ? Assessment: * Assessment: 1. A bdominal pain - R10.9 (Primary) 2 . A cute constipation - K59.00 ? Plan: * Treatment: Notes: KUB shows moderate stool burben; will start Miralax and MG citrated when home?? * Labs: * L ab: Urinalysis - Inhouse (Collection Date & Time - 02/17/2025) Value Reference Range C olor/Clarity dark yellow/clear * L euk neg * N itrite neg * U robili 16 * P rotein trace * p H 7.0 * B lood neg * S p. Gr. 1.020 * K etone trace * B sylvie neg * G paramjit neg * Mahogany Courtney 02/17/2025 09:5 1:11 AM EDT > Provider reviewed results while patient in office.Maggy Quiroz 02/17/2025 03:52:26 PM EDT > ?Lab: CBC Fingerstick (in house) (Collection Date & Time - 02/17/2025)* Value Reference Range w bc 4.4 3.5 - 10 * l ym 29.4 15 - 50 * m id 7.2 2 - 15 * g ran 63.4 35 - 80 * r bc 4.97 3.5 - 5.5 * h gb 14.3 11.5 - 16.5 * h ct 43.1 35 - 55 * m cv 86.7 75 - 100 * m ch 28.7 25 - 35 * m chc 33.1 31 - 38 * p lat 236 100 - 400 * Mahogany Courtney 02/17/2025 09:5 2:21 AM EDT > Provider reviewed results while patient in office.Maggy Quiroz 02/17/2025 03:52:11 PM EDT > * Procedure Codes: 3 6416 CAPILLARY BLOOD DRAW, 95291 CBC WITH AUTO DIFF, 75416 Urinalysis, no micro, 1036F TOBACCO NON-USER, 3075F SYST BP GE 130 - 139MM HG, 3078F DIAST BP < 80 MM HG * Follow Up: p rn * Images: Billing Information: * Visit Code: 05035 Office Visit, Est Pt., Level 3. * Procedure Codes: 90485 CAPILLARY BLOOD DRAW. 01364 CBC WITH AUTO DIFF. 25922 Urinalysis, no micro. 1036F TOBACCO NON-USER. 3075F SYST BP GE 130 - 139MM HG. 3078F DIAST BP < 80 MM HG. * Electronic signature of Deisy Quiroz APRN on 05/03/2025 at 02:49 PM EDT Sign off status: Pending * Provider: RAJESH Roldan Date: 0 02/17/2025 Generated for Odin schneider/Antoni/Stacia on: 1 07/03/2024 02:49 PM EDT History and Physical Notes * HPI (History of Present Illness) Category Sub-Category Detail Notes Category Not es Gastroenterology Fever Vomiting Abdominal Pain Pt complains of lowe r abdominal pain that started yesterday. Pt states pain is worse on rt side and it radiates to her rt lower back. Pt states has a lot of discomfort when sitting down but standing is worse or being pressed on. Pt states she does have some nausea as well Diarrhea Nausea Belching gas constipation Examination Category Sub-Category Detail Notes Category Not es General Examination Heart: RRR 110/min Lungs: CTAB A&P Abdomen: diffusely tender > i n all lower Quads, bowel sounds present, , soft; some guarding General Appearance: NAD, alert, well nou rished and hydrated; appears uncomfortable
--- OUTSIDE RECORDS SUMMARY | 2025-03-27 09:30 | XMS_ITS ---
Author Organization [facility] Address [address] [facility] [address] [phone] Care Team Providers Care Duco Polisher Name Role Phone Sally Cordova Primary Care [...] 7 Active Vitamin D (Ergocalciferol) 1.25 MG (24423 UT) 1 capsule Orally once a week; [...] 03/27/20 Blood pressure diastolic 74 mm Hg 025 Heart Rate 94 /min 03/27/2025 Height 67 in 03/27/2025 BMI 27.03 kg/m2 03/27/2025 Encounters Encounter Location Date Provider Diagnosis [facility] [address] [facility] [address] [place] [phone] 03/27/2025 Sally Cordova Muscle spasm of back [...] 05/09/2025 10:00:00 AM, [address] [facility], [address], [place], [phone], Progress Notes * TAMMY RAUSCHDOB:1985 ([age] yo F)Acc No.[id number]:03/27/2025 Progress Notes Patient: TAMMY KRISHNAMURTHY Provider: MATT Sanchez :1985 A ge:39 Y S ex:Female Date:03/27/2025 Address:[address] [place] [address], [place] [phone] Subjective: * Chief Complaints: * 1 . Back pain. * HPI: M mary Back: 39 year old female presents with [...] Ablation 12/2012, Colonoscopy 2014, Hysterectomy- Dr. Perea, [facility] 11/30/2014, Laperoscopy 11/19/2019, Colonoscopy, 1 Polyp Removed, Repeat 3 Years 02/22/2023, Thyroid Nodule Biopsy 10/22/2024. * Hospitalization/Major Diagno stic Procedure: M igraine, Lumbar Puncture- [facility] 04/04-10/2017, Migraine- [facility] 06/20/2018, Abdominal Pain, Constipation- [facility] 12/17-, Aura Migraine- [facility] 03/13/2020, Elevated BP- [facility] 07/15/2021, Abdominal Pain, Vomiting- [facility] 12/26/2022, Abdominal Pain, Vomiting- [facility] 12/28/2022, Abdominal Pain, Vomiting- [facility] 12/29-12/31/2022, Abdominal Pain, Vomiting- [facility] 02/05-05/2023. * Family History: F ather: [...] Stroke, Heart Disease. S iblings: alive. C yairen: alive. 2 brother(s) , 1 sister(s) - [...] , Taking Vitamin D (Ergocalciferol) 1.25 MG (89769 UT) Capsule 1 capsule Orally once a [...] * Images: Billing Information: * Visit Code: 71076 Office Visit, Est Pt., Level 3. * Procedure Codes: 11176 Urinalysis, no micro. * Electronic signature of MATT Gutierrez on 05/03/2025 at 02:48 PM EDT Sign off status: Pending * Provider: MATT Sanchez Date: 0 03/27/2025 Generated for Odin schneider/Antoni/eTransmitting on: 07/03/2024 02:48 PM EDT History and [...]
--- OUTSIDE RECORDS SUMMARY | 2025-04-08 09:45 | XMS_ITS ---
Author Organization [facility] Address [address] [facility] [address] [phone] Care Team Providers Care Adjunct Political Science Instructor Name Role Phone Sally Cordova Primary Care Provider Maggy Quiroz Unavailable [phone] Allergies Allergen (clinical drug ingredient) Drug/Non Drug [...] days Active Vitamin D (Ergocalciferol) 1.25 MG (72766 UT) 1 capsule Orally once a week; [...] Notes Problem Acute back pain with sciatica (327860990) Acute back pain with sciatica (M54.40) Active confirmed Vital Signs Weight 170 lbs 04/08/2025 Blood pressure systolic 120 mm Hg 04/08/20 25 Blood pressure diastolic 78 mm Hg 025 Heart Rate 100 /min 04/08/2025 Height 67 in 04/08/2025 BMI 26.62 kg/m2 04/08/2025 Encounters Encounter Location Date Provider Diagnosis [facility] [address] [place] [id number] 04/08/2025 Maggy Quiroz Acute back pain with [...] Up: will discuss afte r xrays, Reason: Provider Name:Narinder Javi Serranokaruna alanis, 05/09/2025 10:00:00 AM, [address], [address], [place], [place], [phone], Medications Administered Medication Instructions Date of Administration Dosage Notes Depo- Medrol 40 mg/ml 04/08/2025 1 mL Progress Notes * CHIKA RAUSCHDOB:1985 (3 0 yo F)Acc No.[id number]:04/08/2025 Progress Notes Patient: CHIKA KRISHNAMURTHY Provider: RAJESH Roldan :1985 A ge:39 Y S ex:Female Date:04/08/2025 Address:[address] [place] [address] Pcp:Sally Cordova Subjective: * Chief Complaints: * [...] 12/2012, Colonoscopy 2014, Hysterectomy- Dr. Perea, [facility] 11/30/2014, Laperoscopy 11/19/2019, Colonoscopy, 1 Polyp Removed, Repeat 3 Years 02/22/2023, Thyroid Nodule Biopsy 10/22/2024. * Hospitalization/Major Diagno stic Procedure: M igraine, Lumbar Puncture- [facility] 04/04-10/2017, Migraine- [facility] 06/20/2018, Abdominal Pain, Constipation- [facility] 12/17-, Aura Migraine- [facility] 03/13/2020, Elevated BP- [facility] 07/15/2021, Abdominal Pain, Vomiting- [facility] 12/26/2022, Abdominal Pain, Vomiting- [facility] 12/28/2022, Abdominal Pain, Vomiting- [facility] 12/29-12/31/2022, Abdominal Pain, Vomiting- [facility] 02/05-05/2023. * Family History: F ather: alive 61 yrs, diagnosed with Hypertension. M other: alive 60 yrs, diagnosed with Hypertension. P aternal Grand Father: , diagnosed with Cancer. P aternal Grand Mother: , alzheimer's dementia. M aternal Grand Father: , diagnosed with Hypertension, Heart Disease. M aternal Grand Mother: , diagnosed with Hypertension, Heart Disease. Paternal aunt: alive. M ateshanikal uncle: alive, diagnosed with Hypertension, Heart Disease.?Maternal [...] T aking Vitamin D (Ergocalciferol) 1.25 MG (68030 UT) Capsule 1 capsule Orally once a [...] J 1010 Inj, methylpred acetate 1 mg, 66484 ADMINISTRATION OF INJECTION * Follow Up: w ill discuss after xrays * Images: Billing Information: * Visit Code: 32325 Office Visit, Est Pt., Level 3. Modifiers: 25 * Procedure Codes: J1010 Inj, methylpred acetate 1 mg. 12218 ADMINISTRATION OF INJECTION. * Electronic signature of Deisy Quiroz APRN on 05/03/2025 at 02:49 PM EDT Sign off status: Pending * Provider: RAJESH Roldan Date: Generated for Odin schneider/Antoni/Stacia on: 07/03/2024 02:49 [...]
--- OUTSIDE RECORDS SUMMARY | 2025-04-26 05:00 | XMS_ITS ---
Author Organization [facility] Address [address] [facility] [address] [id number] Care Team Providers Care Warranty Clerk Name Role Phone Sally Cordova Primary Care Provider Narinder Dior Unavailable [phone] Allergies Allergen (clinical drug ingredient) Drug/Non Drug Allergy documented on EMR Reaction Allergy Type Onset Date Status sulfamethoxazole / trimethoprim Bactrim hives Drug Allergy Active cefaclor Cefaclor hives Drug Allergy Active indomethacin Indomethacin dizziness Drug Allergy A ctive REASON FOR VISIT Possible Allergic Reaction & Blood Clot Medications Medication SIG (Take, Route, Frequency, Duration) Notes Start Date End Date Status tiZANidine HCl 2 MG 1 tablet as needed O rally Three times a day; Duration: 30 day(s) Active Omeprazole 40 MG 1 capsule 30 minutes before morning meal Orally Once a day; Duration: 90 days Active Cyclobenzaprine HCl 10 MG 1 tablet Orall y 3 times a day, prn 03/29/2025 Active Promethazine HCl 25 mg TAKE ONE TABLET B Y MOUTH EVERY 6 HOURS NEEDED MAY CAUSE DROWSINESS; Duration: 8 Active DULoxetine HCl 60 mg 1 capsule orally on ce a day; Duration: 30 days Active Meclizine HCl 25 mg TAKE ONE TABLET BY M OUTH THREE TIMES DAILY NEEDED; Duration: 7 Active Vitamin D (Ergocalciferol) 1.25 MG (98443 UT) 1 capsule Orally once a week; Duration: 30 days Active Ketorolac Tromethamine 10 MG 1 tablet with food or milk as needed Orally every 6 hrs 04/26/2025 Active Humira (2 Pen) 40 MG/0.4ML INJECT 40 MG SUBCUTANEOUSLY EVERY 2 WEEKS; Duration: 28 Active Ondansetron 4 mg DISSOLVE ONE TABLET UNDER THE TONGUE THREE TIMES DAILY NEEDED; Duration: 10 Active Lactulose 20 GM/30ML 30 mL as needed Ora lly Once a day Active traMADol HCl 50 MG 1 tablet as needed O rally every 6 hrs Active Linzess 290 MCG 1 capsule at least 3 0 minutes before the first meal of the day on an empty stomach Orally Once a day 02/18/2025 Active Problems Problem Type SNOMED Code ICD Code Onset Dates Problem Status W/U Status Risk Notes Problem Chronic idiopathic constipation (42484652) Chronic idiopathic constipation (K59.04) Active confirmed Vital Signs Weight 167.6 lbs 04/26/2025 Blood pressure systolic 110 mm Hg 04/26/20 Blood pressure diastolic 78 mm Hg 025 Heart Rate 111 /min 04/26/2025 Height 67 in 04/26/2025 BMI 26.25 kg/m2 04/26/2025 Encounters Encounter Location Date Provider Diagnosis [facility] [address] [id number] 04/26/2025 Narinder [place] Superficial vein thrombosis I82.890 ; Lower abdominal pain R10.30 and Chronic idiopathic constipation K59.04 Assessments Encounter Date Diagnosis (ICD Code) Assessment Notes Treatment Notes Treatment Clinical Notes Section Notes 04/26/2025 Superficial vein thrombosis (ICD-10 - I82.890) heating pad to affected areas 2 to 3 times a day 04/26/2025 Lower abdominal pain (ICD-10 - R10.30) 04/26/2025 Chronic idiopathic constipation (ICD-10 - K59.04) Plan Of Treatment Medication Medication Name Sig Start Date Stop Date Notes Ketorolac Tromethamine 10 MG 1 tablet wi th food or milk as needed Orally every 6 hrs 04/26/2025 Lactulose 20 GM/30ML 30 mL as needed Ora lly Once a day Linzess 290 MCG 1 capsule at least 3 0 minutes before the first meal of the day on an empty stomach Orally Once a day 02/18/2025 Meloxicam 7.5 MG 1 tablet Orally twice a day 04/08/2025 Treatment Notes Assessment Notes Superficial vein thrombosis heating pad to affected areas 2 to 3 times a day Next Appt Details Follow Up: as scheduled,and prn, Reason: Provider Name:Narinder Ramirez ry, 05/09/2025 10:00:00 AM, [address] [facility] [address], [place], [phone], Progress Notes * TAMMY RAUSCHDOB:1985 (3 0 yo F)Acc No.[id number]:04/26/2025 Progress Notes Patient: TAMMY KRISHNAMURTHY Provider: Tom Dior M.D. :1985 A ge:39 Y S ex:Female Date:04/26/2025 Address:[address] [place] [address] Pcp:Sally Cordova Subjective: * Chief Complaints: * 1 . Possible Allergic Reaction & Blood Clot. * HPI: H ematology: 39 year old female presents with c/o Blood Clot P t presents today with c/o possible blood clot in the IV site on her left forearm. Pt has redness, heat and knot present. D ermatology: c/o rash P t has a rash on the abdomen, arms, and back that are itching. * Medical History: H ypertension, Hyperlipidemia, Allergic Rhinitis, Depression, Endometriosis, Migraines, RA Factor Positive 2017, Rheumatoid Arthritis, Anxiety. * Surgical History: C holecystectomy 2003, D & C 2003,2004, [place] Tubal Ligation 05/21/2012, Endometrial Ablation 12/2012, Colonoscopy 2014, Hysterectomy- Dr. Perea, [facility] 11/30/2014, Laperoscopy 11/19/2019, Colonoscopy, 1 Polyp Removed, Repeat 3 Years 02/22/2023, Thyroid Nodule Biopsy 10/22/2024, Small Bowel Obstruction & Volvulus 04/15/2025, Appendectomy 04/15/2025. * Hospitalization/Major Diagno stic Procedure: M igraine, Lumbar Puncture- H 04/04-10/2017, Migraine- [facility] 06/20/2018, Abdominal Pain, Constipation- H 12/17-, Aura Migraine- [facility] 03/13/2020, Elevated BP- [facility] 07/15/2021, Abdominal Pain, Vomiting- [facility] 12/26/2022, Abdominal Pain, Vomiting- [facility] 12/28/2022, Abdominal Pain, Vomiting- [facility] 12/29-12/31/2022, Abdominal Pain, Vomiting- [facility], Miranda 02/05-05/2023. * Family History: F ather: alive [...] . Alcohol: no. * Medications: T aking traMADol HCl 50 MG Tablet 1 tablet as needed Orally every 6 hrs , Taking Lactulose 20 GM/30ML Solution 30 mL as needed Orally Once a day , Taking Meloxicam 7.5 MG Tablet 1 tablet Orally twice a day , Taking Vitamin D (Ergocalciferol) 1.25 MG (96198 UT) Capsule 1 capsule Orally once a [...] 1 capsule orally once a day , Medication List reviewed and reconciled with the patient * Allergies: C efaclor: hives - Allergy, Bactrim: hives - Allergy, Indomethacin: dizziness - Side Effects. Objective: * Vitals: W t: 167.6, Temp: 97.5, BP: 110/78, HR: 111, Nurse: MARY, Ht: 67, BMI:26.25. * Examination: G eneral Examination: General Appearance: N AD, stands and moves slowly due to pain. S kin: l eft inner forearm with a 4 cm wide reddened area of skin with some induration around site of peripheral IV that was removed yesterday. Assessment: * Assessment: 1. S uperficial vein thrombosis - I82.890 (Primary) 2 . L ower abdominal pain - R10.30 3 . C hronic idiopathic constipation - K59.04 Plan: * Treatment: 2. L ower abdominal pain Start Ketorolac Tromethamine Tablet, 10 MG, 1 tablet with food or milk as needed, Orally, every 6 hrs, 16, Refills 0; S top Meloxicam Tablet, 7.5 MG, 1 tablet, Orally, twice a day. 3. C hronic idiopathic constipation Continue Lactulose Solution, 20 GM/30ML, 30 mL as needed, Orally, Once a day; C ontinue Linzess Capsule, 290 MCG, 1 capsule at least 30 minutes before the first meal of the day on an empty stomach, Orally, Once a day. * Follow Up: a s scheduled,and prn * Images: Billing Information: * Visit Code: 21156 Office Visit, Est Pt., Level 3. * Procedure Codes: * Electronic signature of Farheen Dior MD on 05/03/2025 at 02:49 PM EDT Sign off status: Pending * Provider: Tom Dior M.D. Date: Generated for Odin schneider/Antoni/Stacia on: 07/03/2024 02:49 PM EDT History and Physical Notes * HPI (History of Present Illness) Category Sub-Category Detail Notes Category Not es Dermatology rash Pt has a rash on the abdomen, arms, and back that are itching Hematology Blood Clot Pt presents toda y with c/o possible blood clot in the IV site on her left forearm. Pt has redness, heat and knot present Examination Category Sub-Category Detail Notes Category Not es General Examination General Appearance: NAD, sta nds and moves slowly due to pain Skin: left inner forearm w ith a 4 cm wide reddened area of skin with some induration around site of peripheral IV that was removed yesterday
[2025-05-03] VITALS (13 sets, daily range): BP systolic 131–155; BP diastolic 79–101; PULSE 99–120; RESP 13–22; TEMP 36.7–36.8; O2SAT 96–100; BMI 27.4
--- OUTSIDE RECORDS SUMMARY | 2025-05-03 14:48 | XMS_ITS | Clinical Summary ---
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 Warned not to take with other NSAIDs including [id number] NSAIDs. Family History Medical History Relation Name [...] Non-Reacti ve 06/03/2024 11:16 PM EST [facility] Hep A IgM Non-Reacti ve Non-Reacti ve 06/03/2024 11:16 PM EST [facility] Hep B C IgM Non-Reacti ve Non-Reacti ve 06/03/2024 11:16 PM EST [facility] Hepatitis C Ab Non-Reacti ve Non-Reacti ve 06/03/2024 11:16 PM EST [facility] Blood Venipuncture / Unknown 06/03/2024 2:02 PM EST 06/03/2024 2:02 PM EST Narrative [facility] - 06/03/2024 11:16 PM EST Results may be falsely decreased if patient taking Biotin. Mario Mensah MD LAB BLOOD ORDERABLES Final Res ult [facility]
[address] [place] [address], from Last 3 Months or Most Recently Relevant to Health Maintenance Insurance [facility] Care Teams Tile Setter Apprentice Relationship Specialty Start Date End Date Sally Cordova PA [address] [place] [address] [address] PCP - General Physician Makeup Instructor 10/17/23
--- OUTSIDE RECORDS SUMMARY | 2025-05-03 14:48 | XMS_ITS | Referral Summary ---
Author Organization [facility] ([place], [place], [place], [place], [place]) Address [address] [place] [address] Care Team Providers Care Stranding Machine Operator Name Role Phone Narinder Dior MD Primary Care Provider + [phone] Allergies Active Allergy Reactions Criticality Noted Date [...] Date Tremaine rded Speak language other than Ken[place] at home Not on file 07/19/2023 Want [...] Plan of Treatment Not on file Insurance [facility] Care Teams Stranding Machine Operator Relationship Specialty Start Date End Date Narinder Dior MD [address] [facility] [address] [place], [place] [address] PCP - General Family Medicine 08/02/22
--- OUTSIDE RECORDS SUMMARY | 2025-05-03 14:49 | XMS_ITS | Clinical Summary ---
Author Organization [facility] ([place], [place], [place], [place], [place]) Address [address] [place] [address] Care Team Providers Care Salvage Repairer Name Role Phone Narinder Dior MD Primary Care Provider + [phone] Allergies Active Allergy Reactions Criticality Noted Date [...] Date Tremaine rded Speak language other than Greek at home Not on file 07/19/2023 Want [...] age to complete this topic Insurance [facility] Care Teams Salvage Repairer Relationship Specialty Start Date End Date Narinder Dior MD [address] [facility] [address] [place] [id number] PCP - General Family Medicine 08/02/22
--- NOTE | 2025-05-03 14:50 | HMH.EDGENADL ---
Discharge Plan Disposition Patient Disposition: Home, Self-Care Condition: Good Prescriptions Prescriptions: No Action tizanidine 2 mg tablet 2 mg PO TIDP PRN (Reason: Muscle Spasm) Patient Comments: TAKE ONE TABLET BY MOUTH THREE TIMES DAILY omeprazole 40 mg capsule,delayed release(DR/EC) 40 mg PO DAILY Patient Comments: TAKE ONE CAPSULE BY MOUTH EVERY MORNING 30 minutes BEFORE morning meal duloxetine 60 mg capsule,delayed release(DR/EC) 60 mg PO DAILY Patient Comments: TAKE ONE CAPSULE BY MOUTH EVERY DAY Humira(CF) Pen 40 mg/0.4 mL pen injector kit 40 mg SQ DIRECTED Patient Comments: INJECT THE CONTENTS OF 1 PEN (40 MG / 0.4 ML) SUBCUTANEOUSLY EVERY 14 DAYS Rx Instructions: INJECT EVERY 2 WEEKS meloxicam 7.5 mg tablet 7.5 mg PO BID Patient Comments: TAKE ONE TABLET BY MOUTH TWICE DAILY --TAKE WITH FOOD-- tramadol 50 mg Tablet 50 mg PO Q6HP PRN (Reason: Moderate Pain (4-6)) Qty: 15 0RF lactulose 10 gram/15 mL Solution 40 g PO BID Qty: 1800 0RF Linzess 290 mcg capsule 290 mcg PO DAILY Qty: 30 0RF Referrals Follow up/Referrals: Narinder Dior MD [Primary Care Provider, Medical] - See instructions Travon Victor MD [Staff Physician, General Surgery] - See instructions Activity Restrictions/Add. Instructions Additional Instructions/Restrictions: Please return to the emergency department with any worsening signs or symptoms, monitor for any signs and symptoms of postoperative infection to include fever chills worsening pain, that does not respond to medications, nausea and vomiting, please follow-up with your PCP and general surgery in the upcoming days/weeks. Clinical Impressions Clinical Impression: Abdominal pain Qualifiers: Abdominal location: right lower quadrant Qualified Code(s): R10.31 - Right lower quadrant pain Instructions Patient Instructions: DI for Acute Abdominal Pain Print Language Print Language: Uzbek Discharge ED Provider: Everett Blackmon General Adult HPI <MATT Galan - Last Filed: 05/03/25 17:16> General Chief complaint: Abdominal Pain Stated complaint: Sent per [facility] for Abdominal Pain Time Seen by Provider: 05/03/25 14:41 Mode of Arrival: Ambulatory Source of Information: Patient and Medical Record Limitations: No Limitations History of Present Illness HPI narrative: 39-year-old female presents the emergency department at the request of her primary care doctor for some lower abdominal pain that has been gradually worsening since 04/30/2025, with some accompanying nausea, she denies any fever chills chest pain shortness of breath, no vomiting, denies any constipation, does have some diarrhea, has been on lactulose and Linzess for constipation, last bowel movement was yesterday no hematuria melena hematochezia or hematemesis, no other urinary type symptomatology, patient denies any alcohol tobacco or drug use, other past medical history is consistent with chronic constipation, Is status post appendectomy and 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 Initial triage vitals noted for tachycardia otherwise unremarkable. Please note that above description of symptoms, in this electronic medical record under categorization of recalled from ER triage doctor by RN are reflective of an initial nursing assessment, however, is not reflective of my full history and physical exam that was personally taken and clarified. Consequentially, this preceding description of symptoms, which may include the patient's categorized chief complaint in the EMR, do not reflect my personal clinical impression, and the ultimate description of history of present illness and patient stated complaints should be deferred to this section of the note. Unless stated otherwise or congruent with this section of the note, additional signs, symptoms, or incongruence should be interpreted as inaccurate with my clinical impression. Onset (ago): day(s) Related Data Home Medications ?Medication ?Instructions ?Recorded ?Confirmed duloxetine 60 mg capsule,delayed 60 mg PO DAILY 11/13/22 05/01/25 release adalimumab 40 mg/0.4 mL 40 mg SQ DIRECTED 02/06/23 05/01/25 subcutaneous pen kit (Humira(CF) Pen) omeprazole 40 mg capsule,delayed 40 mg PO DAILY 11/05/23 05/01/25 release tizanidine 2 mg tablet 2 mg PO TIDP PRN Muscle Spasm 01/09/24 05/01/25 meloxicam 7.5 mg tablet 7.5 mg PO BID 04/15/25 05/01/25 Previous Rx's ?Medication ?Instructions ?Recorded lactulose 10 gram/15 mL oral 40 g (60 mL) PO BID #1,800 mL 04/25/25 solution linaclotide 290 mcg capsule 290 mcg PO DAILY #30 caps 04/25/25 (Linzess) tramadol 50 mg tablet 50 mg PO Q6HP PRN Moderate Pain 04/25/25 (4-6) #15 tabs Allergies Allergy/AdvReac Type Severity Reaction Status Date / Time indomethacin Allergy Severe Anaphylaxis Verified 05/01/25 10:40 cefaclor (From CECLOR) Allergy Unknown Unknown Verified 05/01/25 10:40 allergy reaction sulfamethoxazole (From Allergy Unknown Unknown Verified 05/01/25 10:40 BACTRIM) allergy reaction trimethoprim (From BACTRIM) Allergy Unknown Unknown Verified 05/01/25 10:40 allergy reaction PFS <MATT Galan - Last Filed: 05/03/25 17:16> [facility] Disclaimer: The information contained in this section may have been updated after the patient was seen, as this information can be updated by other users. Medical History Pelvic floor dysfunction Mucus in stool Blood in stool Multiple thyroid nodules Thyroid nodule TPO TSH- 1.53 Ft4- 1.12 Left leg pain Arm pain, left Fall Palpitations Sinus tachycardia Family history of ischemic heart disease Vaginitis Nausea & vomiting Strep throat Vomiting Nausea Dizziness CAP (community acquired pneumonia) Immunosuppression Viral syndrome Headache Fatigue Dyspnea Chest pain Vomiting and diarrhea Abdominal pain Nausea Intractable vomiting Colitis Acute epigastric pain Generalized postprandial abdominal pain Generalized postprandial abdominal pain Abdominal pain, epigastric Abdominal pain Irritable bowel syndrome with constipation Nausea BMI 35.0-35.9,adult Chronic constipation Acute bronchopneumonia Back pain Body mass index (BMI) of 35.0 to 35.9 in adult Headache Hyperlipidemia Neck pain Obesity with body mass index (BMI) of 35.0 to 39.9 without comorbidity Sinusitis Viral bronchitis Viral gastroenteritis Vitamin D deficiency Anxiety Hypertension Irritable bowel syndrome with constipation Rheumatoid arthritis Rheumatoid factor positive Migraines Endometriosis Depression Ankylosing spondylitis Hyperlipidemia (~11/22/17) Vitamin D deficiency (~11/22/17) Obesity (BMI 35.0-39.9 without comorbidity) Sinusitis Surgical History History of colonoscopy History of tubal ligation History of laparotomy Hx of dilation and curettage x2 History of hysterectomy History of cholecystectomy Family History Other Cancer Coronary artery disease Hypertension No significant family history Stroke 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 Smoking Status: Never smoker alcohol intake: never substance use type: denies use current occupational status: employed Travel in the last 8 weeks?: None adopted: No caregiver/support person: No household members: spouse and children housing: house lives independently: No marital status: education level: college service: No correction: No caffeine: Yes special sandi needs: No agree to transfusion: No do you feel safe at home: Yes victim of physical abuse: No victim of emotional abuse: No victim of sexual abuse: No would you like helpful sources: No Have you lived/traveled outside [place] in past 30 days?: No Contact w/someone who lives/traveled outside [place] past 30 days?: No Exposure to someone with infectious disease in past 14 days?: No Do you have a fever (greater than 100.4 F or 38 C)?: No Have you tested positive for COVID-19?: No Exposed to someone with COVID-19 in past 14 days?: No Do you have a sore throat?: No Do you have a cough?: No Do you have any weakness?: No Do you have any diarrhea?: No Are you experiencing any unusual bleeding?: No Do you have any muscle aches/pain?: No Do you have any abdominal pain?: No Are you experiencing loss of taste or smell?: No Other Medical History Have you received the Flu Vaccine for this season: No Have you received the Pneumonia Vaccine: No <MATT Galan - Last Filed: 05/03/25 17:16> ROS Obtained: Yes All systems reviewed & no additional complaints except as documented Physical Exam <MATT Galan - Last Filed: 05/03/25 17:16> General General appearance: alert and in no apparent distress Head Head exam: atraumatic and normocephalic Eye Eye exam: Present PERRL and EOMI ENT ENT exam: Present mucous membranes moist Neck Neck exam: Present normal inspection Chest Chest inspection: Present normal inspection and symmetric chest wall rise Respiratory Respiratory exam: Present normal lung sounds bilaterally; Absent respiratory distress Cardiovascular Cardiovascular exam: Present normal rhythm and tachycardia Abdominal Exam Abdominal exam: Present soft, tenderness and incision; Absent guarding, rebound or rigidity Abdominal tenderness: Present RLQ, LLQ and mild Extremities Exam Extremities exam: Present normal inspection Neurological Exam Neurological exam: Present alert and oriented X3 Psychiatric Psychiatric exam: Present normal affect Skin Skin exam: Present warm and dry Medical Decision Making <MATT Galan - Last Filed: 05/03/25 17:16> Medical Records Medical records reviewed: Yes I reviewed the patient's medical records. Screening: Per USPSTF and CDC recommendations, given the prevalence of disease in our region, it is our hospital?s policy to screen for HIV and viral Hepatitis for all patients aged 18 and over and those with ongoing risk factors. Ray Inquiry Pt receiving controlled substance: No Ray was queried for this patient: No Vital Signs: 05/03/25 14:45 05/03/25 14:51 05/03/25 14:58 Temperature 98.2 F Temperature Source Oral Pulse Rate 120 H 112 H Pulse Rate [Left Radial] 116 H Respiratory Rate 17 20 Blood Pressure 154/101 H 147/100 H Blood Pressure [Right Arm] 134/79 Blood Pressure Mean [Right Arm] 97 02 Sat by Pulse Oximetry 99 100 100 Oxygen Delivery Method Room Air Room Air Room Air 05/03/25 15:00 05/03/25 15:15 05/03/25 15:30 Temperature Temperature Source Pulse Rate 99 H 112 H 103 H Pulse Rate [Left Radial] Respiratory Rate 22 20 18 Blood Pressure 141/90 H 155/92 H 131/90 Blood Pressure [Right Arm] Blood Pressure Mean [Right Arm] 02 Sat by Pulse Oximetry 99 99 99 Oxygen Delivery Method Room Air Room Air Room Air 05/03/25 15:45 05/03/25 16:15 05/03/25 16:30 Temperature Temperature Source Pulse Rate 110 H 108 H 104 H Pulse Rate [Left Radial] Respiratory Rate 19 18 13 Blood Pressure 132/86 134/93 H 141/101 H Blood Pressure [Right Arm] Blood Pressure Mean [Right Arm] 02 Sat by Pulse Oximetry 99 100 100 Oxygen Delivery Method Room Air Room Air Room Air 05/03/25 16:45 Temperature Temperature Source Pulse Rate 99 H Pulse Rate [Left Radial] Respiratory Rate 19 Blood Pressure 139/94 H Blood Pressure [Right Arm] Blood Pressure Mean [Right Arm] 02 Sat by Pulse Oximetry 100 Oxygen Delivery Method Room Air Lab Data Lab results reviewed: Yes I reviewed the patient's lab results. Lab Results 05/03/25 14:50: D-Dimer 0.83 H 05/03/25 14:51: WBC 6.3, RBC 4.29, Hgb 12.6, Hct 38.3, MCV 89.3, MCH 29.4, MCHC 32.9, RDW 13.1, Plt Count 415, MPV 9.0, Neut % (Auto) 62.4, Lymph % (Auto) 23.1, [place] % (Auto) 9.5 H, Eos % (Auto) 3.9, Baso % (Auto) 0.9, Neut # (Auto) 4.0, Lymph # (Auto) 1.5, [place] # (Auto) 0.6, Eos # (Auto) 0.3, Baso # (Auto) 0.1, Sodium 138, Potassium 3.7, Chloride 105, Carbon Dioxide 25, Anion Gap 11.7, BUN 10, Creatinine 0.70, Estimated Creat Clear 130, Estimated GFR 93, Est GFR ( Amer) 112, Glucose 104 H, Lactate 0.7, Calcium 8.8, Magnesium 1.9, Total Bilirubin 1.0, AST 33, ALT 39, Alkaline Phosphatase 71, Total Protein 8.1 D, Albumin 3.8, Globulin 4.3 H, Albumin/Globulin Ratio 0.9 L, Lipase 201, Serum HCG, Qual Negative 05/03/25 16:35: Urine Color Yellow, Urine Appearance Clear, Urine pH 5.5, Ur Specific [place] 1.010, Urine Protein Negative, Urine Glucose (UA) Negative, Urine Ketones Negative, Urine Blood Negative, Urine Nitrate Negative, Urine Bilirubin Negative, Urine Urobilinogen 0.2, Ur Leukocyte Esterase Negative 05/03/25 14:51 05/03/25 14:51 Orders (Tests/Meds): ED MEDICATIONS Discontinued Medications Generic Name Dose Route Start Last Admin Trade Name Vinh PRN Reason Stop Dose Admin Iopamidol 75 ml 05/03/25 15:55 05/03/25 15:56 Iopamidol-370 (76%);100ml Bottle IV 05/03/25 15:56 75 ml ONCE ONE Administration Morphine Sulfate 4 mg 05/03/25 16:33 05/03/25 16:48 Morphine 4mg/Ml Syringe IV 05/03/25 16:34 4 mg ONCE ONE Administration Ondansetron HCl 4 mg 05/03/25 16:34 05/03/25 16:48 Ondansetron 4mg/2ml Vial IV 05/03/25 16:35 4 mg ONCE ONE Administration Sodium Chloride 10 ml 05/03/25 15:55 05/03/25 15:56 Sodium Chloride 0.9% 10ml Syr (Rad Only) IV 05/03/25 15:56 10 ml ONCE ONE Administration ORDERS Category Date Time Status CT abdomen pelvis w con Stat Cat Scan 05/03/25 14:56 Completed Complete Blood Count Auto Diff Stat Lab 05/03/25 14:51 Completed Comprehensive Metabolic Panel Stat Lab 05/03/25 14:51 Completed D-Dimer Stat Lab 05/03/25 14:50 Completed HCG Qualitative, Serum Stat Lab 05/03/25 14:51 Completed Lactic Acid Stat Lab 05/03/25 14:51 Completed Lipase Stat Lab 05/03/25 14:51 Completed Magnesium Stat Lab 05/03/25 14:51 Completed Urinalysis and Microscopic Stat Lab 05/03/25 16:35 Results Medical Decision Narrative: 39-year-old female presents the emergency department for abdominal pain, nausea for the last 3 to 4 days, see HPI for detailed past medical history, differential diagnose include but not limited to obstruction obstruction, postoperative infection, ileus, pseudo colonic obstruction, constipation, gastroenteritis, cardiac arrhythmia, electrolyte disturbance, acute UTI, among other I discussed this patient's case with the attending physician Dr. Blackmon Will obtain basic laboratory studies, hCG qualitative, lactic acid, lipase, magnesium level, UA, CT ab pelvis with contrast, and EKG. CBC unremarkable hCG qualitative negative CMP is unremarkable, no lactic acidosis I reviewed the patient's CT abdomen pelvis with contrast along the corresponding radiologic report, persistent mild inflammatory changes in the cecum consistent with postoperative status, will give the patient 4 mg IV morphine and 4 mg IV Zofran for pain and nausea. Will also add on D-dimer for patient's tachycardia here in the emergency department and recent postoperative state. D-dimer 0.83, utilizing years algorithm PE unlikely. I discussed all results with the patient at reexamination at approximately 5:13 PM, patient is feeling somewhat better after medication administration, tachycardia has somewhat improved, patient was given strict return precautions patient follow-up with general surgeon and PCP in the upcoming days/weeks, she will continue to follow-up for postoperative restrictions as directed, continue all postoperative medication as prescribed, patient does have some antinausea medicine at home that she will utilize if needed. Patient and family voiced understanding and agreement with current treatment plan/discharge plan. <Tunde Aguayo MD - Last Filed: 05/03/25 17:20> Vital Signs: 05/03/25 14:45 05/03/25 14:51 05/03/25 14:58 Temperature 98.2 F Temperature Source Oral Pulse Rate 120 H 112 H Pulse Rate [Left Radial] 116 H Respiratory Rate 17 20 Blood Pressure 154/101 H 147/100 H Blood Pressure [Right Arm] 134/79 Blood Pressure Mean [Right Arm] 97 02 Sat by Pulse Oximetry 99 100 100 Oxygen Delivery Method Room Air Room Air Room Air 05/03/25 15:00 05/03/25 15:15 05/03/25 15:30 Temperature Temperature Source Pulse Rate 99 H 112 H 103 H Pulse Rate [Left Radial] Respiratory Rate 22 20 18 Blood Pressure 141/90 H 155/92 H 131/90 Blood Pressure [Right Arm] Blood Pressure Mean [Right Arm] 02 Sat by Pulse Oximetry 99 99 99 Oxygen Delivery Method Room Air Room Air Room Air 05/03/25 15:45 05/03/25 16:15 05/03/25 16:30 Temperature Temperature Source Pulse Rate 110 H 108 H 104 H Pulse Rate [Left Radial] Respiratory Rate 19 18 13 Blood Pressure 132/86 134/93 H 141/101 H Blood Pressure [Right Arm] Blood Pressure Mean [Right Arm] 02 Sat by Pulse Oximetry 99 100 100 Oxygen Delivery Method Room Air Room Air Room Air 05/03/25 16:45 Temperature Temperature Source Pulse Rate 99 H Pulse Rate [Left Radial] Respiratory Rate 19 Blood Pressure 139/94 H Blood Pressure [Right Arm] Blood Pressure Mean [Right Arm] 02 Sat by Pulse Oximetry 100 Oxygen Delivery Method Room Air Lab Data Lab Results 05/03/25 14:50: D-Dimer 0.83 H 05/03/25 14:51: WBC 6.3, RBC 4.29, Hgb 12.6, Hct 38.3, MCV 89.3, MCH 29.4, MCHC 32.9, RDW 13.1, Plt Count 415, MPV 9.0, Neut % (Auto) 62.4, Lymph % (Auto) 23.1, [place] % (Auto) 9.5 H, Eos % (Auto) 3.9, Baso % (Auto) 0.9, Neut # (Auto) 4.0, Lymph # (Auto) 1.5, [place] # (Auto) 0.6, Eos # (Auto) 0.3, Baso # (Auto) 0.1, Sodium 138, Potassium 3.7, Chloride 105, Carbon Dioxide 25, Anion Gap 11.7, BUN 10, Creatinine 0.70, Estimated Creat Clear 130, Estimated GFR 93, Est GFR ( Amer) 112, Glucose 104 H, Lactate 0.7, Calcium 8.8, Magnesium 1.9, Total Bilirubin 1.0, AST 33, ALT 39, Alkaline Phosphatase 71, Total Protein 8.1 D, Albumin 3.8, Globulin 4.3 H, Albumin/Globulin Ratio 0.9 L, Lipase 201, Serum HCG, Qual Negative 05/03/25 16:35: Urine Color Yellow, Urine Appearance Clear, Urine pH 5.5, Ur Specific [place] 1.010, Urine Protein Negative, Urine Glucose (UA) Negative, Urine Ketones Negative, Urine Blood Negative, Urine Nitrate Negative, Urine Bilirubin Negative, Urine Urobilinogen 0.2, Ur Leukocyte Esterase Negative Orders (Tests/Meds): ED MEDICATIONS Discontinued Medications Generic Name Dose Route Start Last Admin Trade Name Freq PRN Reason Stop Dose Admin Iopamidol 75 ml 05/03/25 15:55 05/03/25 15:56 Iopamidol-370 (76%);100ml Bottle IV 05/03/25 15:56 75 ml ONCE ONE Administration Morphine Sulfate 4 mg 05/03/25 16:33 05/03/25 16:48 Morphine 4mg/Ml Syringe IV 05/03/25 16:34 4 mg ONCE ONE Administration Ondansetron HCl 4 mg 05/03/25 16:34 05/03/25 16:48 Ondansetron 4mg/2ml Vial IV 05/03/25 16:35 4 mg ONCE ONE Administration Sodium Chloride 10 ml 05/03/25 15:55 05/03/25 15:56 Sodium Chloride 0.9% 10ml Syr (Rad Only) IV 05/03/25 15:56 10 ml ONCE ONE Administration ORDERS Category Date Time Status CT abdomen pelvis w con Stat Cat Scan 05/03/25 14:56 Completed Complete Blood Count Auto Diff Stat Lab 05/03/25 14:51 Completed Comprehensive Metabolic Panel Stat Lab 05/03/25 14:51 Completed D-Dimer Stat Lab 05/03/25 14:50 Completed HCG Qualitative, Serum Stat Lab 05/03/25 14:51 Completed Lactic Acid Stat Lab 05/03/25 14:51 Completed Lipase Stat Lab 05/03/25 14:51 Completed Magnesium Stat Lab 05/03/25 14:51 Completed Urinalysis and Microscopic Stat Lab 05/03/25 16:35 Results ECG Data Tracing #1: Independently inter by me rate is 103, rhythm is regular, axis is normal, no ST elevation in anatomical contiguous leads, QTc 408 Medical Decision Narrative: 39-year-old female presents the emergency department for abdominal pain, nausea for the last 3 to 4 days, see HPI for detailed past medical history, differential diagnose include but not limited to obstruction obstruction, postoperative infection, ileus, pseudo colonic obstruction, constipation, gastroenteritis, cardiac arrhythmia, electrolyte disturbance, acute UTI, among other I discussed this patient's case with the attending physician Dr. Blackmon Will obtain basic laboratory studies, hCG qualitative, lactic acid, lipase, magnesium level, UA, CT ab pelvis with contrast, and EKG. CBC unremarkable hCG qualitative negative CMP is unremarkable, no lactic acidosis I reviewed the patient's CT abdomen pelvis with contrast along the corresponding radiologic report, persistent mild inflammatory changes in the cecum consistent with postoperative status, will give the patient 4 mg IV morphine and 4 mg IV Zofran for pain and nausea. Will also add on D-dimer for patient's tachycardia here in the emergency department and recent postoperative state. D-dimer 0.83, utilizing years algorithm PE unlikely. I discussed all results with the patient at reexamination at approximately 5:13 PM, patient is feeling somewhat better after medication administration, tachycardia has somewhat improved, patient was given strict return precautions patient follow-up with general surgeon and PCP in the upcoming days/weeks, she will continue to follow-up for postoperative restrictions as directed, continue all postoperative medication as prescribed, patient does have some antinausea medicine at home that she will utilize if needed. Patient and family voiced understanding and agreement with current treatment plan/discharge plan. Tunde Aguayo MD: I was consulted by the RAQUEL, and we discussed the complexity of the problems being addressed. I approved the treatment and management plan for this patient's care in the emergency department, thus performing a substantive portion of the medical decision making. Critical Care <MATT Galan - Last Filed: 05/03/25 17:16> Critical Care Time Critical Care Time: No
--- OUTSIDE RECORDS SUMMARY | 2025-05-03 14:50 | XMS_ITS | Clinical Summary ---
Author Organization [facility] Address [address] [place] [address] Care Team Providers Care Concrete Form Setter Name Role Phone Pcp, No Primary Care [...] 3 - 19+ 3-dose series) 03/25/2016 02/26/2016 [id number] Vaccine (2 - season) 2025 05/10/2021 UKY-Influenza [...] complete this topic [facility] MED[facility] Care Teams Concrete Form Setter Relationship Specialty Start Date End Date Pcp, [place] [address] PCP - General Family Medicine 10/14/21
--- OUTSIDE RECORDS SUMMARY | 2025-05-03 14:50 | XMS_ITS | Patient Health Record ---
Author Organization [facility] Address [address] [facility] [address] [facility] [address] [place] [id number] Care Team Providers Care Physical Sciences Professor Name Role Phone Sally Cordova Primary Care Provider [phone] Brenda Diorian Unavailable [phone] Maggy Quiroz Unavailable [phone] Allergies Allergen (clinical drug ingredient) Drug/Non Drug [...] Interpretation: Performing Lab: Notes/Report: Test performed by [facility] [address] [facility] , [address], [place] [address] Ramirez Thomason MD, Diecast Machine Operator CLIA: [id number] Antinuclear Antibodies (ROSARIO) Screen Positive Negative This test is perform ed by Multiplex Bead Immunoassay methodology. P-CBC with Diff plus Absolut e Counts Reviewed date:10/10/2024 01:29:24 PM Interpretation: Performing Lab: Notes/Report: Test performed by [facility] [address] [place] [address] , [address], [place] [address] Ramirez Thomason MD, Diecast Machine Operator CLIA: [id number] WBC 6.7 3.8-11.5 K/uL Red Blood Cell [...] Interpretation: Performing Lab: Notes/Report: Test performed by [facility] [address] [place] [address] , [address], [place] [address] Ramirez Thomason MD, Diecast Machine Operator CLIA: [id number] CCP Antibodies <0.5 <0.5-3.0 U/mL P-Comprehensive Metabolic Pa rickie (CMP) Reviewed date:10/10/2024 01:29:24 PM Interpretation: Performing Lab: Notes/Report: Test performed by [facility] [address] [place] [address] , [address], [place] [address] Ramirez Thomason MD, Diecast Machine Operator CLIA: [id number] Sodium 140 135-145 mmol/L Potassium 4.3 3.5-5.3 [...] 0.5 <0.2-1.2 mg/dL A/G Ratio 1.6 1.1-2.5 E-L-Oebaheov Protein (CRP) Reviewed date:10/10/2024 01:29:24 PM Interpretation: Performing Lab: Notes/Report: Test performed by [facility] [address] [place] [address] , [address], [place] [address] Ramirez Thomason MD, Diecast Machine Operator CLIA: [id number] C-Reactive Protein (CRP) 0.05 <0.50 mg/dL P-Sed Rate (ESR) Reviewed date:10/10/2024 01:29:24 PM Interpretation: Performing Lab: Notes/Report: Test performed by [facility] [address] [place] [address] [address], [place] [address] Ramirez Thomason MD, Diecast Machine Operator CLIA: [id number] Erythrocyte Sedimentation Rate (ESR), Automated 31 <26 mm/hr P-Rheumatoid Factor Reviewed date:10/10/2024 01:29:24 PM Interpretation: Performing Lab: Notes/Report: Test performed by [facility] [address] [place] [address] , [place] [address] Ramirze Thomason MD, Diecast Machine Operator CLIA: [id number] Rheumatoid Factor 10.0 <14.1 IU/mL P-T4 Free (thyroxine) Reviewed date:10/10/2024 01:29:24 PM Interpretation: Performing Lab: Notes/Report: Test performed by [facility] [address] [place] [address] , [place] [address] Ramirez Thomason MD, Diecast Machine Operator CLIA: [id number] Thyroxine Free (free T4) 1.00 0.86-1.76 ng/dL HLA-B27 Antigen Reviewed date:10/10/2024 01:29:24 PM Interpretation: Performing Lab: Notes/Report: HLA-B27 Negative Negative INTERPRETIVE INFORMATION: HLA-B27 HLA-B27 is a serologically defined allele of the human HLA-B locus. The presence of the HLA-B27 antigen is strongly associated with ankylosing spondylitis and related disorders. This test was developed and its performance characteristics determined by [facility]. It has not been cleared or approved by the US Food and Drug Administration. This test was performed in a CLIA certified laboratory and is intended for clinical purposes. Performed By: [facility] [address] [place] [address] Diecast Machine Operator: Ramón Prakash MD, PhD CLIA Number: [id number] P-TSH Reviewed date:10/10/2024 01:29:24 PM Interpretation: Performing Lab: Notes/Report: Test performed by [facility] [address] [place] [address] [place] [address] Ramirez Thomason MD, Diecast Machine Operator CLIA: [id number] TSH 1.84 0.43-5.25 mU/L P-Vitamin D 25-Hydroxy Reviewed date:10/10/2024 01:29:24 PM Interpretation: Performing Lab: Notes/Report: Test performed by [facility] [address] [place] [address] , [place] [address] Ramirez Thomason MD, Diecast Machine Operator CLIA: [id number] Vitamin D 25-Hydroxy 16.0 30.0-100.0 ng/mL Interpretation [...] date:10/10/2024 01:29:24 PM Interpretation: Performing Lab: Notes/Report: Urinalysis - Inhouse Reviewed date:10/25/2024 04:50:35 PM Interpretation: Performing Lab: Notes/Report: Color/Clarity yellow/clear Leuk Neg Nitrite Neg Urobili 3.2 Protein Neg pH 5.0 Blood Neg Sp. Gr. 1.020 Ketone Neg Bili Neg Gluc Neg F-W-Htogybnm Protein (CRP), High Sensitivity Reviewed date:11/01/2024 11:56:22 AM Interpretation:Normal Performing Lab: Notes/Report: Test performed by [facility] [address] [place] [address] , [address], [place] [address] Ramirez Thomason MD, Diecast Machine Operator CLIA: [id number] C-Reactive Protein (CRP), High Sensitivity 0.30 <3.01 [...] Interpretation:Normal Performing Lab: Notes/Report: Test performed by [facility] [address] [place], [place] [address] [place] [address], [place] [address] Ramirez hTomason MD, Diecast Machine Operator CLIA: [id number] Erythrocyte Sedimentation Rate (ESR), Automated 5 <26 mm/hr P-T4 Free (thyroxine) Reviewed date:11/01/2024 11:56:22 AM Interpretation:Normal Performing Lab: Notes/Report: Test performed by [facility] [address] [place] [address] Ramirez Thomason MD, Diecast Machine Operator CLIA: [id number] Thyroxine Free (free T4) 1.09 0.86-1.76 ng/dL P-Thyroid Antibody Panel (TA BS) Reviewed date:11/01/2024 11:56:22 AM Interpretation:Thyroglobulin antibody 234.0 Performing Lab: Notes/Report: Test performed by [facility] [address] [place] [address] Ramirez Thomason MD, Diecast Machine Operator CLIA: [id number] Thyroid Peroxidase Antibody 13 <9-34 IU/mL An [...] Interpretation:Normal Performing Lab: Notes/Report: Test performed by [facility] [address] [place] [address] [place] [address] Ramirez Thomason MD, Diecast Machine Operator CLIA: [id number] TSH 1.94 0.43-5.25 mU/L TEN-Vaginal Infection panel [...] platlet 291 100 - 400 P-Lyme Disease ([place] solorioi), IgG/IgM, BIN, Serum Reviewed date:12/31/2024 08:23:56 AM Interpretation:Normal Performing Lab: Notes/Report: Test performed by [facility] [address] [place] [address] , [address], [place] [address] Ramirez Thomason MD, Diecast Machine Operator CLIA: [id number] B burgdorferi (Lyme Disease) IgG Negative Negative B burgdorferi (Lyme Disease) IgM Negative Negative P-Comprehensive Metabolic Pa rickie (CMP) Reviewed date:12/31/2024 08:23:56 AM Interpretation:Normal Performing Lab: Notes/Report: Test performed by [facility] [address] [place] [address] , [place] [address] Ramirez Thomason MD, Diecast Machine Operator CLIA: [id number] Sodium 138 135-145 mmol/L Potassium 4.0 3.5-5.3 [...] 0.7 <0.2-1.2 mg/dL A/G Ratio 1.5 1.1-2.5 Y-P-Rjwgbkhz Protein (CRP), High Sensitivity Reviewed date:12/31/2024 08:23:56 AM Interpretation:Normal Performing Lab: Notes/Report: Test performed by [facility] [address] [place] [address] , [address], [place] [address] Ramirez Thomason MD, Diecast Machine Operator CLIA: [id number] C-Reactive Protein (CRP), High Sensitivity 0.70 <3.01 [...] Interpretation:Normal Performing Lab: Notes/Report: Test performed by [facility], [address] , [place] [address] Ramirez Thomason MD, Diecast Machine Operator CLIA: [id number] AND Test performed by [facility] [address] [place] [address] Celia Lemus MD, Diecast Machine Operator B. burgdorferi Antibody IgG Immunoblot Negative [...] developed and its performance characteristics determined by [facility]. It has not been cleared or approved by the US Food and Drug Administration. This test was performed in a CLIA certified laboratory and is intended for clinical purposes. Performed By: [facility] [address] [place] [address] Diecast Machine Operator: Ramón Prakash MD, PhD CLIA Number: [id number] A. phagocytophilum Ab IgG <1:80 <1:80 INTERPRETIVE INFORMATION: A. phagocytophilum (HGA) Antibody, IgG Less than 1:80 - No significant level of IgG antibodies to A. phagocytophilum detected. Greater than or equal to 1:80 - Suggestive of a recent or past infection with A. phagocytophilum. This test was developed and its performance characteristics determined by [facility]. It has not been cleared or approved by the US Food and Drug Administration. This test was performed in a CLIA certified laboratory and is intended for clinical purposes. P-Sed Rate (ESR) Reviewed date:12/31/2024 08:23:56 AM Interpretation:Normal Performing Lab: Notes/Report: Test performed by [facility] [address] [place], [place] [address] [place] , [place] [address] Ramirez Thomason MD, Diecast Machine Operator CLIA: [id number] Erythrocyte Sedimentation Rate (ESR), Automated 9 <26 mm/hr P-T4 Free (thyroxine) Reviewed date:12/31/2024 08:23:56 AM Interpretation:Normal Performing Lab: Notes/Report: Test performed by [facility] [address] [place] [address] , [place] [place] [address] Ramirez Thomason MD, Diecast Machine Operator CLIA: [id number] Thyroxine Free (free T4) 1.12 0.86-1.76 ng/dL P-TSH Reviewed date:12/31/2024 08:23:56 AM Interpretation:Normal Performing Lab: Notes/Report: Test performed by [facility] [address] [place], [place] [address] [place] , [facility] [place] [address] Ramirez Thomason MD, Diecast Machine Operator CLIA: [id number] TSH 1.53 0.43-5.25 mU/L P-Vitamin D 25-Hydroxy Reviewed date:12/31/2024 08:23:56 AM Interpretation:25.4 Performing Lab: Notes/Report: Test performed by [facility] [address] [place] [address] , [address], [place] [address] Ramirez Thomason MD, Diecast Machine Operator CLIA: [id number] Vitamin D 25-Hydroxy 25.4 30.0-100.0 ng/mL Interpretation [...] date:04/10/2025 03:43:28 PM Interpretation: Performing Lab: Notes/Report: Holter - 7 day Reviewed date:12/04/2024 03:41:37 PM Interpretation:PVC's and PAC's Performing Lab: Notes/Report: PVC's and PAC's xultrasound : thyroid Reviewed date:03/28/2025 11:58:00 AM Interpretation:Stable, 6-12 Mth F/U Performing Lab: Notes/Report: Stable, 6-12 Mth F/U M-Complete Blood Count Man D if Reviewed date:04/22/2025 09:42:16 AM Interpretation: Performing Lab: Notes/Report: WBC 3.7 4.8-10.8 K/mm3 Delta: 2.9 on 04/20/25 RBC 3.93 4.20-5.40 M/mm3 HGB 11.5 12.2-16.2 g/dL HCT 34.3 37.0-47.0 % MCV 87.3 81-99 fl MCH 29.3 27.0-31.2 pg MCHC 33.5 31.8-35.4 g/dL RDW 11.9 11.5-17.5 % PLT 300 142-424 K/mm3 MPV 8.6 7.4-10.4 fl NE% 60.8 37.0-80.0 % LY% 24.3 10-50 % MO% 7.9 1.7-9.3 % EO% 6.0 0.1-12.0 % BA% 0.5 0.1-2.0 % NE# 2.2 1.8-7.8 K/mm3 LY# 0.9 0.7-4.5 K/mm3 MO# 0.3 0.1-1.0 K/mm3 EO# 0.2 0.0-0.4 Kmm3 BA# 0.0 0-0.2 K/mm3 MDIFF MANUAL DIFFERENTIAL MANUAL DIFF TCC 100 NEUT%M 61 42-76 % LYMPH%M 23 10-50 % MONO%M 5 2-9 % EOS%M 11 0-3 % PLTE Normal RM Normal H-CMP Reviewed date:04/17/2025 08:33:37 AM Interpretation: Performing Lab: Notes/Report: NA 136 136-145 mmol/L K 3.3 3.5-5.1 mmoL/L CL 103 98-107 mmol/L CO2 27 22.0-30.0 mmol/L GAP 9.3 5-15 mEq/L BUN 7 7-17 mg/dl Delta: 10 on 04/16/25 CREATT 0.70 0.52-1.04 mg/dl CRCLE 149 50-200 mL/min GFRAA 112 >60 ML/MIN EGFR 93 >60 ml/min GLU 82 74-100 mg/dl CA 7.6 8.4-10.2 mg/dl BILIT 1.9 0.2-1.3 mg/dl AST 45 14-36 U/L Delta: 24 on 04/15/25 ALT 80 12-78 U/L Delta: 21 on 04/15/25 TP 5.6 6.3-8.2 g/dl Delta: 7.7 on 04/15/25 ALB 3.0 3.5-5.0 g/dl GLOB 2.6 1.3-3.2 g/dL AGRATIO 1.2 1.1-1.8 ALP 53 38-126 U/L H-CBC Reviewed date:04/17/2025 08:33:37 AM Interpretation: Performing Lab: Notes/Report: WBC 7.1 4.8-10.8 K/mm3 Delta: 10.4 o n 04/16/25 RBC 3.35 4.20-5.40 M/mm3 HGB 10.0 12.2-16.2 g/dL HCT 29.4 37.0-47.0 % MCV 87.8 81-99 fl MCH 29.9 27.0-31.2 pg MCHC 34.0 31.8-35.4 g/dL RDW-SD 38.6 RDW 11.9 11.5-17.5 % PLT 206 142-424 K/mm3 MPV 9.6 7.4-10.4 fl NE% 80.2 37.0-80.0 % LY% 11.5 10-50 % MO% 6.1 1.7-9.3 % EO% 1.3 0.1-12.0 % BA% 0.3 0.1-2.0 % NRBC% 0 IG% 0.6 NE# 5.7 1.8-7.8 K/mm3 LY# 0.8 0.7-4.5 K/mm3 MO# 0.4 0.1-1.0 K/mm3 EO# 0.1 0.0-0.4 Kmm3 BA# 0.0 0-0.2 K/mm3 NRBC# 0 IG# 0.04 H-CMP Reviewed date:04/20/2025 09:06:12 PM Interpretation: Performing Lab: Notes/Report: NA 137 136-145 mmol/L K 4.0 3.5-5.1 mmoL/L CL 108 98-107 mmol/L CO2 25 22.0-30.0 mmol/L GAP 8.0 5-15 mEq/L BUN 2 7-17 mg/dl Delta: 5 on 04/18/25 CREATT 0.60 0.52-1.04 mg/dl CRCLE 161 50-200 mL/min GFRAA 134 >60 ML/MIN EGFR 111 >60 ml/min GLU 88 74-100 mg/dl CA 8.1 8.4-10.2 mg/dl BILIT 0.8 0.2-1.3 mg/dl AST 85 14-36 U/L ALT 103 12-78 U/L TP 5.5 6.3-8.2 g/dl ALB 2.8 3.5-5.0 g/dl GLOB 2.7 1.3-3.2 g/dL AGRATIO 1.0 1.1-1.8 ALP 48 38-126 U/L H-CBC Reviewed date:04/20/2025 09:06:12 PM Interpretation: Performing Lab: Notes/Report: WBC 2.9 4.8-10.8 K/mm3 Delta: 4.1 on 04/18/25 RBC 3.32 4.20-5.40 M/mm3 HGB 9.7 12.2-16.2 g/dL HCT 29.3 37.0-47.0 % MCV 88.3 81-99 fl MCH 29.2 27.0-31.2 pg MCHC 33.1 31.8-35.4 g/dL RDW-SD 38.4 RDW 12.0 11.5-17.5 % PLT 242 142-424 K/mm3 MPV 9.2 7.4-10.4 fl NE% 54.0 37.0-80.0 % LY% 26.3 10-50 % MO% 11.2 1.7-9.3 % EO% 7.4 0.1-12.0 % BA% 0.7 0.1-2.0 % NRBC% 0 IG% 0.4 NE# 1.5 1.8-7.8 K/mm3 LY# 0.8 0.7-4.5 K/mm3 MO# 0.3 0.1-1.0 K/mm3 EO# 0.2 0.0-0.4 Kmm3 BA# 0.0 0-0.2 K/mm3 NRBC# 0 IG# 0.01 H-CMP Reviewed date:04/22/2025 09:41:56 AM Interpretation: Performing Lab: Notes/Report: NA 138 136-145 mmol/L K 3.9 3.5-5.1 mmoL/L CL 103 98-107 mmol/L CO2 30 22.0-30.0 mmol/L GAP 8.9 5-15 mEq/L BUN 5 7-17 mg/dl Delta: 2 on 04/20/25 CREATT 0.70 0.52-1.04 mg/dl CRCLE 134 50-200 mL/min GFRAA 112 >60 ML/MIN EGFR 93 >60 ml/min GLU 90 74-100 mg/dl CA 8.4 8.4-10.2 mg/dl BILIT 0.6 0.2-1.3 mg/dl AST 72 14-36 U/L ALT 138 12-78 U/L Delta: 103 on 04/20/25 TP 6.3 6.3-8.2 g/dl ALB 3.3 3.5-5.0 g/dl GLOB 3.0 1.3-3.2 g/dL AGRATIO 1.1 1.1-1.8 ALP 67 38-126 U/L H-Lipase Reviewed date:04/23/2025 09:08:22 AM Interpretation: Performing Lab: Notes/Report: LIP 40 23-300 U/L H-Amylase Reviewed date:04/23/2025 09:08:22 AM Interpretation: Performing Lab: Notes/Report: MOY 41 30-110 U/L H-CMP Reviewed date:04/23/2025 09:08:22 AM Interpretation: Performing Lab: Notes/Report: NA 136 136-145 mmol/L K 3.6 3.5-5.1 mmoL/L CL 104 98-107 mmol/L CO2 31 22.0-30.0 mmol/L GAP 4.6 5-15 mEq/L BUN 5 7-17 mg/dl CREATT 0.70 0.52-1.04 mg/dl CRCLE 134 50-200 mL/min GFRAA 112 >60 ML/MIN EGFR 93 >60 ml/min GLU 81 74-100 mg/dl CA 8.0 8.4-10.2 mg/dl BILIT 0.5 0.2-1.3 mg/dl AST 81 14-36 U/L ALT 130 12-78 U/L TP 5.6 6.3-8.2 g/dl ALB 2.9 3.5-5.0 g/dl Delta: 3.3 on 04/22/2541 GLOB 2.7 1.3-3.2 g/dL AGRATIO 1.1 1.1-1.8 ALP 62 38-126 U/L H-CBC Reviewed date:04/23/2025 09:08:22 AM Interpretation: Performing Lab: Notes/Report: WBC 3.7 4.8-10.8 K/mm3 RBC 3.60 4.20-5.40 M/mm3 HGB 10.5 12.2-16.2 g/dL HCT 31.3 37.0-47.0 % MCV 86.9 81-99 fl MCH 29.2 27.0-31.2 pg MCHC 33.5 31.8-35.4 g/dL RDW-SD 38.0 RDW 11.9 11.5-17.5 % PLT 302 142-424 K/mm3 MPV 8.9 7.4-10.4 fl NE% 54.5 37.0-80.0 % LY% 27.0 10-50 % MO% 10.2 1.7-9.3 % EO% 7.5 0.1-12.0 % BA% 0.5 0.1-2.0 % NRBC% 0 IG% 0.3 NE# 2.0 1.8-7.8 K/mm3 LY# 1.0 0.7-4.5 K/mm3 MO# 0.4 0.1-1.0 K/mm3 EO# 0.3 0.0-0.4 Kmm3 BA# 0.0 0-0.2 K/mm3 NRBC# 0 IG# 0.01 X ray : KUB Reviewed date:11/01/2024 01:33:36 PM Interpretation:No Significant Constipation Performing Lab: Notes/Report: No Significant Constipation xultrasound : thyroid Reviewed date:05/16/2024 10:25:23 AM Interpretation:right thyroid nodule, consider f/u in 6-12 months Performing Lab: Notes/Report: right thyroid nodule, consider f/u in 6-12 months P-TSH Reviewed date:05/10/2024 08:42:35 AM Interpretation: Performing Lab: Notes/Report: Test performed by [facility] [address] [place] [address] , [address], [place] [address] Ramirez Thomason MD, Diecast Machine Operator CLIA: [id number] TSH 2.34 0.43-5.25 mU/L P-Thyroid Antibody Panel (TA BS) Reviewed date:05/10/2024 08:42:35 AM Interpretation: Performing Lab: Notes/Report: Test performed by [facility] [address] [place] [address] , [address], [place] [address] Ramirez Thomason MD, Diecast Machine Operator CLIA: [id number] Thyroid Peroxidase Antibody 17 <9-34 IU/mL An [...] Interpretation: Performing Lab: Notes/Report: Test performed by [facility] [address] [place] [address] , [address], [place] [address] Ramirez Thomason MD, Diecast Machine Operator CLIA: [id number] Thyroxine Free (free T4) 1.09 0.86-1.76 ng/dL P-Basic Metabolic Panel (BMP ) Reviewed date:05/10/2024 08:42:35 AM Interpretation: Performing Lab: Notes/Report: Test performed by [facility], [address] , [address], [place] [address] Ramirez Thomason MD, Diecast Machine Operator CLIA: [id number] Sodium 140 135-145 mmol/L Potassium 3.9 3.5-5.3 mmol/L Chloride 105 97-108 mmol/L CO2 21 22-32 mmol/L Glucose 92 65-99 mg/dL BUN 13 6-20 mg/dL Creatinine 0.85 0.50-1.00 mg/dL Calcium 9.5 8.6-10.4 mg/dL eGFR by Creatinine 89 >59 mL/min/1.73m2 H-CBC Reviewed date:04/20/2025 09:06:12 PM Interpretation: Performing Lab: Notes/Report: WBC 4.1 4.8-10.8 K/mm3 Delta: 7.1 on 04/17/25 RBC 3.47 4.20-5.40 M/mm3 HGB 10.3 12.2-16.2 g/dL HCT 30.3 37.0-47.0 % MCV 87.3 81-99 fl MCH 29.7 27.0-31.2 pg MCHC 34.0 31.8-35.4 g/dL RDW-SD 37.7 RDW 11.7 11.5-17.5 % PLT 212 142-424 K/mm3 MPV 9.0 7.4-10.4 fl NE% 70.3 37.0-80.0 % LY% 17.2 10-50 % MO% 7.5 1.7-9.3 % EO% 4.6 0.1-12.0 % BA% 0.2 0.1-2.0 % NRBC% 0 IG% 0.2 NE# 2.9 1.8-7.8 K/mm3 LY# 0.7 0.7-4.5 K/mm3 MO# 0.3 0.1-1.0 K/mm3 EO# 0.2 0.0-0.4 Kmm3 BA# 0.0 0-0.2 K/mm3 NRBC# 0 IG# 0.01 H-BMP Reviewed date:04/20/2025 09:06:12 PM Interpretation: Performing Lab: Notes/Report: NA 137 136-145 mmol/L K 3.6 3.5-5.1 mmoL/L CL 105 98-107 mmol/L CO2 26 22.0-30.0 mmol/L GAP 9.6 5-15 mEq/L BUN 5 7-17 mg/dl Delta: 7 on 04/17/25-528 CREATT 0.60 0.52-1.04 mg/dl CRCLE 173 50-200 mL/min GFRAA 134 >60 ML/MIN EGFR 111 >60 ml/min GLU 108 74-100 mg/dl CA 8.4 8.4-10.2 mg/dl Urinalysis - Inhouse Reviewed date:07/05/2024 01:29:14 PM [...] whether rheumatoid factor present (M06.9) [facility]erring [facility] First Name Sally Referring Provider Last Name Tasha Referring Provider Speciality Physician Aerospace Engineer Referred Provider Rheumatology, . Referred Provider Specialty Rheumatology General Notes Sally Cordova 05/09 2:03:24 PM > [facility] Brynn 05/13/2024 11:59:53 AM > faxed to [facility] Scheduling Referral Priority Routine Reason patient needs to see endocrinology Diagnosis 1 Thyroid nodule (E04. 1) [facility] Referring Provider First Name Sally Referring Provider Last Name Tasha Referring Provider Speciality Physician Aerospace Engineer Referred Provider Specialty Endocrinolog y General Notes Radha Valerio 024 1:18:17 PM > faxed to [facility] EndocrinologyIman Brynn 05/20/2024 1:25:55 PM > appt 05/22/2024 at 10:00am Referral Priority Routine Diagnosis 1 Constipation, unspec ified constipation type (K59.00) Referral Organization [facility] Referring Provider First Name Sally Referring Provider Last Name Tasha Referring Provider Speciality Physician Aerospace Engineer Referred Provider BRIDGETTE CASILLAS Referred Provider Specialty Gastroentero logy General Notes Radha Valerio 024 8:38:27 AM > faxed to [facility] Gastroenterology, Radha Valerio 06/17/2024 9:54:40 AM > spoke with Rudy; resent lucianoxIman Brynn 06/19/2024 11:09:11 AM > confirmed order received with Rudy Referral Priority Routine Reason Thyroid enlargement Diagnosis 1 Thyromegaly (E04.9) Diagnosis 2 Enlarged thyroid (E0 4.9) Diagnosis 3 Thyroid nodule (E04. 1) Referral Organization [facility] Referring Provider First Name Sally Referring Provider Last Name Tasha Referring Provider Speciality Physician Aerospace Engineer Referred Organization [facility] Referred Address [address] [place] [address], [address],[id number], Referred Provider Specialty ENT General Notes Radha Valerio 2024 01:17:24 PM > faxed to [facility] ENTIman Brynn 10/11/2024 08:51:34 AM > 10/15/2024 Referral Priority Routine Diagnosis 1 Acute back pain with sciatica (M54.40) Referral Organization [facility] Referring Provider First Name Sally Referring Provider Last Name Tasha Referring Provider Speciality Physician Aerospace Engineer Referred Provider Specialty Neurological Surgery General Notes Radha Valerio 2024 08:23:08 AM > faxed to [facility] Referral Priority Routine Diagnosis 1 Acute back pain with sciatica (M54.40) Referral Organization [facility] Referring Provider First Name Sally Referring Provider Last Name Tasha Referring Provider Speciality Physician Aerospace Engineer Referred Provider Specialty Physical The rapist General Notes Radha Valerio 2024 08:24:07 AM > faxed to [facility] PT Referral Priority Routine Medications Medication SIG (Take, Route, Frequency, Duration) Notes Start Date End Date Status Lactulose 20 GM/30ML 30 mL as needed Ora lly Once a day Active tiZANidine HCl 2 MG 1 tablet as needed O rally Three times a day; Duration: 30 day(s) Active Omeprazole 40 MG 1 capsule 30 minutes before morning meal Orally Once a day; Duration: 90 days Active traMADol HCl 50 MG 1 tablet as needed O rally every 6 hrs Active Cyclobenzaprine HCl 10 MG 1 tablet Orall y 3 times a day, prn 03/29/2025 Active Linzess 290 MCG 1 capsule at least 3 0 minutes before the first meal of the day on an empty stomach Orally Once a day 02/18/2025 Active Promethazine HCl 25 mg TAKE ONE TABLET B Y MOUTH EVERY 6 HOURS NEEDED MAY CAUSE DROWSINESS; Duration: 8 Active DULoxetine HCl 60 mg 1 capsule orally on ce a day; Duration: 30 days Active Meclizine HCl 25 mg TAKE ONE TABLET BY M OUTH THREE TIMES DAILY NEEDED; Duration: 7 Active Vitamin D (Ergocalciferol) 1.25 MG (55645 UT) 1 capsule Orally once a week; Duration: 30 days Active Ketorolac Tromethamine 10 MG 1 tablet with food or milk as needed Orally every 6 hrs 04/26/2025 Active Humira (2 Pen) 40 MG/0.4ML INJECT 40 MG SUBCUTANEOUSLY EVERY 2 WEEKS; Duration: 28 Active Ondansetron 4 mg DISSOLVE ONE TABLET UNDER THE TONGUE THREE TIMES DAILY NEEDED; Duration: 10 Active Immunizations Vaccine Route Administration Date Status Comme nts xFluzone (6mos and older)-trivalent Unknown 04/14/2010 Administered xFluzone (6mos and older)-trivalent Unknown 06/16/2014 Administered COVID 19 Moderna Unknown 05/10/2021 Administered Problems Problem Type SNOMED Code ICD Code Onset Dates Problem Status W/U Status Risk Notes Problem Gastroesophageal reflux disease (985078800) GERD (gastroesophage al reflux disease) (K21.9) Active confirmed Problem Vitamin D deficiency (14407292) Vitamin D deficiency (E55.9) Active confirmed Problem Hypertension (08544280) Hypertension (I10) Active confirmed Problem Goiter (0998463) Enlarged thyroid (E04.9) Active confirmed Problem Mixed anxiety and depressive disorder (078880822) Depression with anxiety (F41.8) Active confirmed Problem Acute constipation (203703258) Acute constipation (K59.00) Active confirmed Problem Thyromegaly (0286016) Thyromegaly (E04.9) Active confirmed Problem Right bundle branch block (93401523) Right bundle branch block (I45.10) Active confirmed Problem Obesity (754499622) Obesity (BMI 30-39.9) (E66.9) Active confirmed Problem Thyroid nodule (065027314) Thyroid nodule (E04.1) Active confirmed Problem Constipation (82492841) Constipation, unspecified constipation type (K59.00) Active confirmed Problem Migraine (91172149) Migraine without status migrainosus, not intractable, unspecified migraine type (G43.909) Active confirmed Problem 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 Problem Fibrocystic breast changes (72574082) Fibrocystic changes of right breast (N60.11) Active confirmed Problem Acute back pain with sciatica (228566849) Acute back pain with sciatica (M54.40) Active confirmed Problem Chronic idiopathic constipation (09695404) Chronic idiopathic constipation (K59.04) Active confirmed Problem Obesity (712923137) Non morbid obesity (E66.9) Active confirmed Problem Hematuria syndrome (29713538) Hematuria, unspecified type (R31.9) Active confirmed Problem Seasonal allergic rhinitis (694541635) Seasonal allergic rhinitis, unspecified trigger (J30.2) Active confirmed Problem Rheumatoid arthritis (07896144) Rheumatoid arthritis involving multiple sites, unspecified whether rheumatoid factor present (M06.9) Active confirmed Vital Signs Heart Rate 111 /min 04/26/2025 Blood pressure diastolic 78 mm Hg 04/26/2025 Height 67 in 04/26/2025 Blood pressure systolic 110 mm Hg 04/26/2025 Weight 167.6 lbs 04/26/2025 BMI 26.25 kg/m2 04/26/2025 Encounters Encounter Location Date Provider Diagnosis [facility] [address] [facility] [address] [facility] [address] [place] [id number] 05/09/2024 Sally Crowdy Thyroid nodule E04.1 and Rheumatoid arthritis involving multiple sites, unspecified whether rheumatoid factor present M06.9 [facility] [address] [facility] [address] [facility] [address] [place], [place] [id number] 07/05/2024 Sally Tasha Acute vaginitis N76. 0 [facility] [address] [facility] [address] [facility] [address] [place] [id number] 08/20/2024 Maggy Quiroz Breast pain, right N64.4 and Fibrocystic changes of right breast N60.11 [facility] [address] [place] [id number] 10/03/2024 Sally Crowdy Palpitations R00.2 ; Acute vaginitis N76.0 ; Thyroid nodule E04.1 ; Vitamin D deficiency E55.9 and Rheumatoid arthritis involving multiple sites, unspecified whether rheumatoid factor present M06.9 [facility] [address] [place] [id number] 10/25/2024 Sally Crowdy Thyroid nodule E04.1 ; Acute vaginitis N76.0 ; Rheumatoid arthritis involving multiple sites, unspecified whether rheumatoid factor present M06.9 and BMI 29.0-29.9,adult Z68.29 [facility] [address] [place] [id number] 12/26/2024 Sally Crowdy Rheumatoid arthritis involving multiple sites, unspecified whether rheumatoid factor present M06.9 ; Thyroid nodule E04.1 ; Fatigue, unspecified type R53.83 ; Palpitations R00.2 ; Vitamin D deficiency E55.9 and Body aches R52 [facility] [address] [place] [id number] 02/17/2025 Maggy Quiroz Abdominal pain R10.9 and Acute constipation K59.00 [facility] [address] [place] [id number] 03/27/2025 Sally Malcolmdy Muscle spasm of back M62.830 [facility] [address] [place], [place] [id number] 04/08/2025 Maggy Quiroz Acute back pain with sciatica M54.40 [facility] [address] [place], [place] [id number] 04/26/2025 Narinder [place] Superficial vein thrombosis I82.890 ; Lower abdominal pain R10.30 and Chronic idiopathic constipation K59.04 [facility] [address] [place] [id number] 05/15/2024 Sally Crowdy [facility] [address] [place] [id number] 05/31/2024 Sally Crowdy [facility] [address] [place] [id number] 06/12/2024 Sally Crowdy Constipation, unspecified constipation type K59.00 [facility] [address] [place] [id number] 06/21/2024 Sally Crowdy [facility] [address] [place] [id number] 07/10/2024 Sally Crowdy [facility] [address] [place] [id number] 07/29/2024 Sally Crowdy [facility] [address] [place] [id number] 08/02/2024 Sally Crowdy [facility] [address] [place] [id number] 08/20/2024 Sally Crowdy [facility] [address] [place] [id number] 08/29/2024 Sally Crowdy [facility] [address] [place] [id number] 09/11/2024 Sally Crowdy [facility] [address] [place] [id number] 09/28/2024 Sally Crowdy [facility] [address] [place] [id number] 10/04/2024 Salyl Crowdy [facility] [address] [place] [id number] 10/09/2024 Sally Crowdy [facility] [address] [place] [id number] 10/10/2024 Sally Crowdy [facility] [address] [place] [id number] 10/24/2024 Sally Crowdy [facility] [address] [place] [id number] 10/30/2024 Sally Crowdy Constipation, unspecified constipation type K59.00 [facility] [address] [place] [id number] 11/01/2024 Sally Crowdy [facility] [address] [place] [id number] 12/16/2024 Sally Crowdy [facility] [address] [place] [id number] 01/15/2025 Sally Crowdy [facility] [address] [place] [id number] 02/07/2025 Sally Crowdy [facility] [address] [place] [id number] 02/18/2025 Maggy Quiroz [facility] [address] [place] [id number] 03/18/2025 Sally Crowdy [facility] [address] [place] [id number] 03/29/2025 Sally Crowdy [facility] [address] [place] [id number] 03/29/2025 Sally Crowdy [facility] [address] [place] [id number] 03/31/2025 Sally Crowdy [facility] [address] [place] [id number] 04/10/2025 Maggy Quiroz [facility] [address] [place] [id number] 04/14/2025 Maggy Quiroz [facility] [address] [place], [place] [id number] 04/28/2025 Sally Crowdy Assessments Encounter Date Diagnosis (ICD Code) Assessment Notes Treatment Notes Treatment Clinical Notes Section Notes 10/25/2024 Acute vaginitis (ICD-10 - N76.0) 10/25/2024 Thyroid nodule (ICD-10 - E04.1) 10/30/2024 Constipation, unspecified constipation type (ICD-10 - K59.00) 02/17/2025 Abdominal pain (ICD-10 - R10.9) 02/17/2025 Acute constipation (ICD-10 - K59.00) KUB shows moderate stool burben; will start Miralax and MG citrated when home 03/27/2025 Muscle spasm of back (ICD-10 - M62.830) Has tizanidine at home. 04/26/2025 Superficial vein thrombosis (ICD-10 - I82.890) heating pad to affected areas 2 to 3 times a day 04/26/2025 Lower abdominal pain (ICD-10 - R10.30) 10/03/2024 Acute vaginitis (ICD-10 - N76.0) 06/12/2024 Constipation, unspecified constipation type (ICD-10 - K59.00) 05/09/2024 Thyroid nodule (ICD-10 - E04.1) 05/09/2024 Rheumatoid arthritis involving multiple sites, unspecified whether rheumatoid factor present (ICD-10 - M06.9) 04/08/2025 Acute back pain with sciatica (ICD-10 - M54.40) no lifting/pushing /pulling; Ice/heat application prn; will do xrays; May need MRI 12/26/2024 Thyroid nodule (ICD-10 - E04.1) 12/26/2024 Rheumatoid arthritis involving multiple sites, unspecified whether rheumatoid factor present (ICD-10 - M06.9) 07/05/2024 Acute vaginitis (ICD-10 - N76.0) 08/20/2024 Fibrocystic changes of right breast (ICD-10 - N60.11) 08/20/2024 Breast pain, right (ICD-10 - N64.4) NSAIDS prn 10/03/2024 Palpitations (ICD-10 - R00.2) 10/25/2024 Rheumatoid arthritis involving multiple sites, unspecified whether rheumatoid factor present (ICD-10 - M06.9) 12/26/2024 Fatigue, unspecified type (ICD-10 - R53.83) 10/03/2024 Thyroid nodule (ICD-10 - E04.1) 04/26/2025 Chronic idiopathic constipation (ICD-10 - K59.04) 10/25/2024 BMI 29.0-29.9,adult (ICD-10 - Z68.29) 12/26/2024 Palpitations (ICD-10 - R00.2) 10/03/2024 Vitamin D deficiency (ICD-10 - E55.9) 12/26/2024 Vitamin D deficiency (ICD-10 - E55.9) 10/03/2024 Rheumatoid arthritis involving multiple sites, unspecified whether rheumatoid factor present (ICD-10 - M06.9) 12/26/2024 Body aches (ICD-10 - R52) Plan Of Treatment Pending Test Test Name Order Date X ray : Spine, lumbar 04/08/2025 MRI : Spine, Thoracic, without contrast 04/11/2025 P-ROSARIO 03/21/2024 P-ROSARIO 10/03/2024 P-Influenza A/B, Covid 19, RSV MRI : Lumbar Spine without contrast 04/02 Next Appt Details Provider Name:Narinder Ramirez ry, 05/09/2025 10:00:00 AM, [address], [place], [place], [id number], Insurance Providers Payer Name Payer Address Payer Phone Subscriber Number Group Number Insured Name Patient Relationship to Insured Coverage Start Date Coverage End Date [employer] [facility] [address] [place], [place] [id number] TAMMY RAUSCH Self - patient is the [...] Ablation 12/2012 Colonoscopy 2014 Hysterectomy- [facility] ital 11/30/2014 Laperoscopy 11/19/2019 Colonoscopy, 1 Polyp Removed, Repeat 3 Y ears 02/22/2023 Thyroid Nodule Biopsy 10/22/2024 Small Bowel Obstruction & Volvulus 04/15 Appendectomy 04/15/2025 Hospitalization History Reason Date(Month/Year) Abdominal Pain, Vomiting- [facility]05-05/2023 Abdominal Pain, Vomiting- [facility] 12/29-07/2022 Abdominal Pain, Vomiting- [facility] ER 023 Abdominal Pain, Vomiting- [facility] ER 023 Elevated BP- [facility] ER 07/15/2021 Aura Migraine- [facility] ER 03/13/2020 Abdominal Pain, Constipation- [facility] 12/17- Migraine- [facility] ER 06/20/2018 Migraine, Lumbar Puncture- [facility] 04/04-2017
--- NOTE | 2025-05-03 14:56 | CT_ITS ---
PROCEDURE INFORMATION: Exam: CT Abdomen And Pelvis With Contrast Exam date and time: 05/03/2025 3:58 PM Age: 39 years old Clinical indication: Abdominal pain; Additional info: Abd pain, nausea, S/P appy and cecal volvulus (pt had surgery on 04/15/2025) TECHNIQUE: Imaging protocol: Computed tomography of the abdomen and pelvis with contrast. Radiation optimization: All CT scans at this facility use at least one of these dose optimization techniques: automated exposure control; mA and/or kV adjustment per patient size (includes targeted exams where dose is matched to clinical indication); or iterative reconstruction. Contrast material: ISOVUE; Contrast volume: 75 ml; Contrast route: IV; COMPARISON: CT ABD/PELVIS W/ ORAL AND IV 04/23/2025 11:32 AM FINDINGS: Liver: Subcentimeter low attenuation area in the liver is too small for characterization. Gallbladder and biliary ducts: Cholecystectomy Pancreas: Normal. No ductal dilation. Spleen: Normal. No splenomegaly. Adrenal glands: Normal. No mass. Kidneys and ureters: Normal. No hydronephrosis. Stomach and bowel: Persistent mild inflammatory changes in the cecum consistent with postoperative status. Stable Sutures in the right colon. Findings consistent with constipation. Appendix: No evidence of appendicitis. Intraperitoneal space: Unremarkable. No free air. No significant fluid collection. Vasculature: Unremarkable. No abdominal aortic aneurysm. Lymph nodes: Unremarkable. No enlarged lymph nodes. Urinary bladder: Unremarkable as visualized. Reproductive: 2.4 cm simple cyst left ovary It was present on the prior study Bones/joints: Unremarkable. No acute fracture. Soft tissues: Unremarkable. IMPRESSION: Persistent mild inflammatory changes in the cecum consistent with postoperative status. .
[2025-05-03 15:08] LABS: Hematocrit 38.3 % (37.0-47.0); Hemoglobin 12.6 g/dL (12.2-16.2); Immature Granulocytes % 0.2 %; Mean Corpuscular HGB Conc 32.9 g/dL (31.8-35.4); Mean Corpuscular Hemoglobin 29.4 pg (27.0-31.2); Mean Corpuscular Volume 89.3 fl (81-99); Nucleated Red Blood Cells % 0 %; Platelet Count 415 K/mm3 (142-424); Red Blood Count 4.29 M/mm3 (4.20-5.40); Red Cell Distribution Width-SD 42.5 fL; White Blood Count 6.3 K/mm3 (4.8-10.8)
--- NOTE | 2025-05-03 15:14 | ECG_ITS ---
APPROVED REPORT Exam: Resting ECG HR:103 bpm ECG Measurements Heart Rate 103 AXES VT 178 P 52 QRSd 104 QRS 49 QT 348 T 45 QTc 408 Conclusion SINUS TACHYCARDIA POSSIBLE RIGHT VENTRICULAR CONDUCTION DELAY [RSR (QR) IN V1/V2] ABNORMAL RHYTHM ECG Electronically signed by : YARA DAWN, 05/03/2025 22:40:23
[2025-05-03 15:21] LABS: HCG Qualitative, Serum Negative (Negative)
[2025-05-03 15:43] LABS: Alanine Aminotransferase 39 U/L (12-78); Albumin Level 3.8 g/dl (3.5-5.0); Albumin/Globulin Ratio 0.9 (1.1-1.8); Alkaline Phosphatase 71 U/L (38-126); Anion Gap 11.7 mEq/L (5-15); Aspartate Amino Transferase 33 U/L (14-36); Bilirubin,Total 1.0 mg/dl (0.2-1.3); Blood Urea Nitrogen 10 mg/dl (7-17); Calcium 8.8 mg/dl (8.4-10.2); Carbon Dioxide 25 mmol/L (22.0-30.0); Chloride 105 mmol/L (98-107); Creatinine Clearance Estimated 130 mL/min (50-200); Creatinine,Serum 0.70 mg/dl (0.52-1.04); Estimated Glomerular Filt Rate 93 ml/min (>60); GFR (African American) 112 ML/MIN (>60); Globulin 4.3 g/dL (1.3-3.2); Glucose 104 mg/dl (74-100); Potassium 3.7 mmoL/L (3.5-5.1); Sodium 138 mmol/L (136-145); Total Protein,Serum 8.1 g/dl (6.3-8.2)
[2025-05-03 15:44] LABS: Lipase 201 U/L (23-300); Magnesium 1.9 mg/dl (1.6-2.3)
[2025-05-03] MEDS: SODIUM CHLORIDE 0.9% 10ML SYR (RAD ONLY) 10 ML IV (15:56)
[2025-05-03] MEDS: IOPAMIDOL-370 (76%);100ML BOTTLE 75 ML IV (15:56)
[2025-05-03 16:43] LABS: Microscopic, Urine URINE MICROSCOPIC (MICROSCOPIC)
[2025-05-03] MEDS: MORPHINE 4MG/ML SYRINGE 4 MG IV (16:48)
[2025-05-03] MEDS: ONDANSETRON 4MG/2ML VIAL 4 MG IV (16:48)
[2025-05-03 16:56] LABS: Bilirubin,Urine Negative (Negative); Color,Urine YELLOW (Yellow); Glucose,Urine (UA) Negative (Negative); Ketones,Urine Negative (Negative); Leukocyte Esterase,Urine Negative (Negative); PH,Urine 5.5 (5.0-8.5); Protein,Urine Negative (Negative); Specific Gravity, Urine 1.010 (1.005-1.030); Urobilinogen,Urine 0.2 EU/dl (0.2)
[2025-05-03 16:58] LABS: D-Dimer 0.83 ug/mL (0.0-0.5)
[2025-05-03 17:24] LABS: Bacteria,Urine 1+ /lpf
== END 2025-05-03 17:35 | disposition home or self-care (01) ==
PROVIDERS: Physician Assistant; Emergency Provider Student in an Organized Health Care Education/Training Program; PCP Family Medicine
DX: R10.31 Right lower quadrant pain (principal); R00.0 Tachycardia, unspecified; Z90.49 Acquired absence of other specified parts of digestive tract
CPT/HCPCS: 74177; 80053; 81001; 83605; 83690; 83735; 84703; 85025; 85378; 93005; 96374; 96375; 99285; J2270; J2405; Q9967

== ENCOUNTER 2025-05-14 12:19 | Day surgery (SDC) | payer OTHER, SELFPAY ==
--- NOTE | 2025-05-11 11:52 | EXP.HP ---
History of Present Illness *Admission Date: 05/14/25 *History of present illness: Mrs. Muro is a 39-year-old female who is here for diagnostic colonoscopy. 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 She has struggled with constipation and can go several weeks without a bowel movement. She has tried and failed Linzess, Trulance, MiraLAX, magnesium citrate, suppositories, enemas, probiotics, fiber and Dulcolax. The patient does get mucus with her bowel movements and sometimes there will be blood mixed with the mucus. She does state that her maternal uncle was diagnosed with colon cancer in his mid 50s and her paternal great uncle had colon cancer. She did have a normal colonoscopy in 2015. Her last colonoscopy was in 2022 (Soto Sales MD) and she had a single polyp removed (hyperplastic polyp). Because of the fair to poor bowel preparation, he recommended 3-year surveillance interval. The examination is deemed medically necessary for diagnostic colonoscopy. The patient has been seen, interviewed and examined prior to the procedure by both myself and the anesthesia provider. [facility] Disclaimer: The information contained in this section may have been updated after the patient was seen, as this information can be updated by other users. Medical History Pelvic floor dysfunction Mucus in stool Blood in stool Multiple thyroid nodules Thyroid nodule Left leg pain Arm pain, left Fall Palpitations Sinus tachycardia Family history of ischemic heart disease Vaginitis Nausea & vomiting Strep throat Vomiting Nausea Dizziness CAP (community acquired pneumonia) Immunosuppression Viral syndrome Headache Fatigue Dyspnea Chest pain Vomiting and diarrhea Abdominal pain Nausea Intractable vomiting Colitis Acute epigastric pain Generalized postprandial abdominal pain Generalized postprandial abdominal pain Abdominal pain, epigastric Abdominal pain Irritable bowel syndrome with constipation Nausea BMI 35.0-35.9,adult Chronic constipation Acute bronchopneumonia Back pain Body mass index (BMI) of 35.0 to 35.9 in adult Headache Hyperlipidemia Neck pain Obesity with body mass index (BMI) of 35.0 to 39.9 without comorbidity Sinusitis Viral bronchitis Viral gastroenteritis Vitamin D deficiency Anxiety Hypertension Irritable bowel syndrome with constipation Rheumatoid arthritis Rheumatoid factor positive Migraines Endometriosis Depression Ankylosing spondylitis Hyperlipidemia (~11/22/17) Vitamin D deficiency (~11/22/17) Obesity (BMI 35.0-39.9 without comorbidity) Sinusitis Surgical History History of colonoscopy History of tubal ligation History of laparotomy Hx of dilation and curettage History of hysterectomy History of cholecystectomy Family History Other Cancer Coronary artery disease Family history of hyperlipidemia Hypertension No significant family history Stroke 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 Smoking Status: Never smoker alcohol intake: never substance use type: denies use current occupational status: employed Travel in the last 8 weeks?: None adopted: No caregiver/support person: No household members: spouse and children housing: house lives independently: No marital status: education level: college service: No chcf: No caffeine: Yes special sandi needs: No agree to transfusion: No do you feel safe at home: Yes victim of physical abuse: No victim of emotional abuse: No victim of sexual abuse: No would you like helpful sources: No Have you lived/traveled outside [place] in past 30 days?: No Contact w/someone who lives/traveled outside US past 30 days?: No Exposure to someone with infectious disease in past 14 days?: No Do you have a fever (greater than 100.4 F or 38 C)?: No Have you tested positive for COVID-19?: No Exposed to someone with COVID-19 in past 14 days?: No Do you have a sore throat?: No Do you have a cough?: No Do you have any weakness?: No Do you have any diarrhea?: No Are you experiencing any unusual bleeding?: No Do you have any muscle aches/pain?: No Do you have any abdominal pain?: No Are you experiencing loss of taste or smell?: No Other Medical History Have you received the Flu Vaccine for this season: No Have you received the Pneumonia Vaccine: No Review of Systems Review of Systems Review of systems (narrative): Negative *Cardiovascular Comments: Negative *Gastrointestinal Comments: Negative *Genitourinary Comments: Negative *Musculoskeletal Comments: Negative *Neurologic Comments: Negative Meds Home Medications and Allergies Home Medications ?Medication ?Instructions ?Recorded ?Confirmed ?Type duloxetine 60 mg capsule,delayed 60 mg PO DAILY 11/13/22 05/14/25 History release adalimumab 40 mg/0.4 mL 40 mg SQ DIRECTED 02/06/23 05/14/25 History subcutaneous pen kit (Humira(CF) Pen) omeprazole 40 mg capsule,delayed 40 mg PO DAILY 11/05/23 05/14/25 History release tizanidine 2 mg tablet 2 mg PO TIDP PRN Muscle Spasm 01/09/24 05/14/25 History meloxicam 7.5 mg tablet 7.5 mg PO BID 04/15/25 05/14/25 History lactulose 10 gram/15 mL oral 40 g (60 mL) PO BID #1,800 mL 04/25/25 05/14/25 Rx solution linaclotide 290 mcg capsule 290 mcg PO DAILY #30 caps 04/25/25 05/14/25 Rx (Linzess) tramadol 50 mg tablet 50 mg PO Q6HP PRN Moderate Pain 04/25/25 05/14/25 Rx (4-6) #15 tabs New Prescriptions to Start Prescriptions: Allergies Allergy/AdvReac Type Severity Reaction Status Date / Time indomethacin Allergy Severe Anaphylaxis Verified 05/14/25 13:06 cefaclor (From CECLOR) Allergy Unknown Unknown Verified 05/14/25 13:06 allergy reaction sulfamethoxazole (From Allergy Unknown Unknown Verified 05/14/25 13:06 BACTRIM) allergy reaction trimethoprim (From BACTRIM) Allergy Unknown Unknown Verified 05/14/25 13:06 allergy reaction Exam *Routine HEENT Exam Head: Present normocephalic Eye: Present EOMI and PERRL ENT: Present mucous membranes moist *Routine Neck Exam Neck: Present supple *Routine Respiratory Exam Respiratory: Present CTA bilaterally *Routine Cardiovascular Exam Cardiovascular: Present RRR *Routine Abdominal Exam Abdominal: Present soft and normoactive bowel sounds; Absent tenderness *Routine Rectal Exam Rectal:: deferred *Routine Genitalia Exam Genitalia:: deferred *Routine Extremities Exam Extremities: Absent cyanosis, clubbing or edema *Routine Skin Exam Skin: Present warm; Absent rash *Routine Neurological Exam Neurological: Present alert and oriented X3 Assessment and Plan *Assessment and plan (1) Chronic constipation: Status: Acute Category: Medical Code(s): K59.09 - Other constipation (2) Blood in stool: Status: Acute Category: Medical Code(s): K92.1 - Melena (3) Mucus in stool: Status: Acute Category: Medical Code(s): R19.5 - Other fecal abnormalities (4) Pelvic floor dysfunction: Status: Acute Category: Medical Code(s): M62.89 - Other specified disorders of muscle (5) Cecal volvulus: Status: Acute Category: Medical Code(s): K56.2 - Volvulus Plan A/P: 1. Chronic constipation with blood and mucus in stool and pelvic floor dysfunction is the preprocedural diagnosis. The patient has had recent cecal volvulus requiring surgical decompression. The patient will be anesthetized/sedated using MAC sedation. The patient has been seen and examined. Cardiac and lung assessment prior to the examination is stable. Proceed with planned diagnostic colonoscopy.
[2025-05-13 13:29] VITALS: BMI 27.4
--- NOTE | 2025-05-14 07:08 | P.PCN_ITS ---
[facility] Procedure Note Date: 05/14/25 Time: 14:20 Procedure Note:: Colonoscopy Procedure Report: Colonoscopy Endoscopist: Stevie Schumacher II, MD Referring physician: Narinder Dior MD Date of Procedure: May 14, 2025 Equipment: Olympus [id number] adult colonoscope Sedation: MAC sedation Indication: Mrs. Muro is a 39-year-old female who is here for diagnostic colonoscopy. 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 This happened after she was seen by Vicenta MENA in the office and colonoscopy was scheduled. The patient was going to go to [facility] physical therapy/pelvic floor physical therapy in [place] but with her recent surgery, this has not been scheduled yet. She has struggled with constipation and can go several weeks without a bowel movement. She has tried and failed Linzess, Trulance, MiraLAX, magnesium citrate, suppositories, enemas, probiotics, fiber and Dulcolax. The patient does get mucus with her bowel movements and sometimes there will be blood mixed with the mucus. She does state that her maternal uncle was diagnosed with colon cancer in his mid 50s and her paternal great uncle had colo n cancer. She did have a normal colonoscopy in 2015. Her last colonoscopy was in 2022 (Soto Sales MD) and she had a single polyp removed (hyperplastic polyp). Because of the fair to poor bowel preparation, he recommended 3-year surveillance interval. The examination is deemed medically necessary for diagnostic colonoscopy. Procedure: Prior to the procedure, a history and physical exam was performed, and patient's medications and allergies were reviewed. The risks, benefits and alternatives of the sedation and procedure were discussed with the patient. All questions were answered and informed consent was obtained. The patient was brought to the procedure room. Patient identification and proposed procedure were verified by the physician and the nurse. The patient was placed in a left lateral decubitus position and the scope was passed under direct vision. Throughout the procedure, the patient's blood pressure, pulse, and oxygen saturations were monitored continuously. The colonoscopy was accomplished without difficulty. The patient tolerated the procedure well. Findings: On digital rectal examination there was normal rectal tone. There were no external hemorrhoids. There was an anterior rectocele. The colonoscope was introduced through the anal canal to the rectum and advanced to the ileocolonic anastomosis ([id number]). The scope was advanced a short distance into the ileum which was normal. The scope was then withdrawn into the colon. The remaining ascending, transverse, descending, sigmoid and rectum were grossly normal. There was some increased colonic luminal diameter and some retained residue. There were no polyps and no mucosal abnormalities identified. Upon retroflexion within the rectum there were grade 1-2 internal hemorrhoids. Impression: 1. Normal colonoscopy with normal ileocolonic anastomosis ([id number]) 2. Anterior rectocele Plan: The patient does have pelvic floor dysfunction/outlet dysfunction constipation. Slow transit constipation refers to slowed movement of contents through the digestive tract and this type of constipation responds very well to most laxatives. Outlet dysfunction, which makes up 50% of those with constipation, refers to an issue with the actual elimination mechanism of stool. The diagnosis of outlet dysfunction constipation is often made in those patients with constipation that respond poorly or not at all to standard laxatives such as osmotics (MiraLAX, Linzess, Trulance), fiber supplements, stimulant laxatives, diet and fluid intake. Up to 50% of patients with chronic constipation have pelvic floor dysfunction (PFD, or dyssynergia). This condition is characterized by impaired coordination between pelvic floor muscle (e.g., puborectalis) relaxation and weakness of the defecatory mechanism which is necessary for normal defecation and bowel evacuation. Defecatory function is a delicate balance between the nerves and muscles. The nerves that arise from the sacral spine are very closely tied to bowel/rectal evacuation. This sacral nervous system allows you to recognize when your rectum is full and allows you to correctly contract muscles to allow for your rectum to evacuate fully. When this balance is upset there is incorrect communication between the nervous system and defecatory muscles (i.e. neuromuscular). Unfortunately, pelvic floor dysfunction is not widely recognized as a possible cause of chronic constipation. As a result, many patients with medically refractory constipation do not receive optimal therapies that enable them to recover normal bowel habits. When mechanical, anatomic, and disease- and diet-related causes of constipation have been ruled out, clinical suspicion should be raised to the possibility that pelvic floor dysfunction is causing or contributing to constipation. The biggest mainstay of treatment for pelvic floor dysfunction includes retraining the pelvic floor muscles with biofeedback physical therapy. Most reviews conclude that more than 70% of adult patients complaining of pelvic floor dyssynergia are likely to benefit from biofeedback training (to completion) and so this is the treatment of choice for the problem. I am going to recommend that she have pelvic floor PT. I would recommend Perdiem in the evenings and Linzess or prucalopride in the mornings.
[2025-05-14 13:06] VITALS: BP 136/62; PULSE 92; RESP 17; TEMP 36.6; O2SAT 100
[2025-05-14] MEDS: LACTATED RINGERS 1000ML 1,000 ML 50 ML IV (13:22)
--- NOTE | 2025-05-14 13:59 | P.PNANES_ITS ---
[facility] Disclaimer: The information contained in this section may have been updated after the patient was seen, as this information can be updated by other users. Medical History Pelvic floor dysfunction Mucus in stool Blood in stool Multiple thyroid nodules Thyroid nodule Left leg pain Arm pain, left Fall Palpitations Sinus tachycardia Family history of ischemic heart disease Vaginitis Nausea & vomiting Strep throat Vomiting Nausea Dizziness CAP (community acquired pneumonia) Immunosuppression Viral syndrome Headache Fatigue Dyspnea Chest pain Vomiting and diarrhea Abdominal pain Nausea Intractable vomiting Colitis Acute epigastric pain Generalized postprandial abdominal pain Generalized postprandial abdominal pain Abdominal pain, epigastric Abdominal pain Irritable bowel syndrome with constipation Nausea BMI 35.0-35.9,adult Chronic constipation Acute bronchopneumonia Back pain Body mass index (BMI) of 35.0 to 35.9 in adult Headache Hyperlipidemia Neck pain Obesity with body mass index (BMI) of 35.0 to 39.9 without comorbidity Sinusitis Viral bronchitis Viral gastroenteritis Vitamin D deficiency Anxiety Hypertension Irritable bowel syndrome with constipation Rheumatoid arthritis Rheumatoid factor positive Migraines Endometriosis Depression Ankylosing spondylitis Hyperlipidemia (~11/22/17) Vitamin D deficiency (~11/22/17) Obesity (BMI 35.0-39.9 without comorbidity) Sinusitis Surgical History History of colonoscopy History of tubal ligation History of laparotomy Hx of dilation and curettage History of hysterectomy History of cholecystectomy Family History Other Cancer Coronary artery disease Family history of hyperlipidemia Hypertension No significant family history Stroke 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 Smoking Status: Never smoker alcohol intake: never substance use type: denies use current occupational status: employed Travel in the last 8 weeks?: None adopted: No caregiver/support person: No household members: spouse and children housing: house lives independently: No marital status: education level: college service: No halfway: No caffeine: Yes special sandi needs: No agree to transfusion: No do you feel safe at home: Yes victim of physical abuse: No victim of emotional abuse: No victim of sexual abuse: No would you like helpful sources: No Have you lived/traveled outside US in past 30 days?: No Contact w/someone who lives/traveled outside US past 30 days?: No Exposure to someone with infectious disease in past 14 days?: No Do you have a fever (greater than 100.4 F or 38 C)?: No Have you tested positive for COVID-19?: No Exposed to someone with COVID-19 in past 14 days?: No Do you have a sore throat?: No Do you have a cough?: No Do you have any weakness?: No Do you have any diarrhea?: No Are you experiencing any unusual bleeding?: No Do you have any muscle aches/pain?: No Do you have any abdominal pain?: No Are you experiencing loss of taste or smell?: No [facility] Anesthesia Checklist Patient Identification Patient Identification: Verbal (Name & ) Structural Data Admitted From: Home Planned Operative Procedure/s: colonoscopy Consent for Planned Operative Procedure(s) Verified: Yes NPO Status Verified Time NPO: 00:00 Additional verifications Anesthesia Reactions: No Airway Assessment Mallampati Score:: Class II C-Spine Mobility Assessed: Yes TMJ Mobility Assessed: Yes Dentition: Good Dentition Neurological Assessment Level of Consciousness: Awake, Alert and Appropriate Anesthesia Plan Anesthesia Risk discussed: Yes Anesthesia Plan: Verified ASA Class: II Anesthesia Type: MAC
[2025-05-14 14:20] VITALS: BP 106/67; PULSE 101; RESP 16; TEMP 36.1; O2SAT 100
[2025-05-14 14:30] VITALS: BP 120/74; PULSE 98; RESP 16; O2SAT 100
[2025-05-14 14:40] VITALS: BP 117/78; PULSE 88; RESP 16; O2SAT 100
[2025-05-14 14:50] VITALS: BP 122/85; PULSE 88; RESP 18; O2SAT 100
== END 2025-05-14 14:50 | disposition home or self-care (01) ==
PROVIDERS: PCP Family Medicine; Visit Provider Internal Medicine Gastroenterology
PROC: 0DJD8ZZ Inspection of Lower Intestinal Tract, Via Natural or Artificial Opening Endoscopic (ICD-10-PCS; CPT 45378; principal; 2025-05-14 14:00)
DX: K64.0 First degree hemorrhoids (principal); K64.1 Second degree hemorrhoids; N81.6 Rectocele; K59.09 Other constipation; K59.1 Functional diarrhea; K56.2 Volvulus; M62.89 Other specified disorders of muscle; Z90.49 Acquired absence of other specified parts of digestive tract; Z90.710 Acquired absence of both cervix and uterus; Z88.1 Allergy status to other antibiotic agents; Z88.2 Allergy status to sulfonamides; Z88.8 Allergy status to other drugs, medicaments and biological substances; Z80.0 Family history of malignant neoplasm of digestive organs; Z86.0102 Personal history of hyperplastic colon polyps
CPT/HCPCS: 45378; J2003; J2704; J7120